=== PATIENT | male | born 1940 | race Caucasian/White ===

== ENCOUNTER 2016-08-04 12:33 | Emergency (ER) | payer OTHER ==
[~2016-08-04] VITALS: Ht 180.3 cm; Wt 80.4 kg
[~2016-08-04 12:33] MED LIST: APIX1TAB3 PO; ATOR-24 PO; FURO40TA3 PO; IPRA1AER2 INH; LISI-793 PO; METO100T44 PO; OMEP20CA9 PO; SYMIN INH
[2016-08-04 12:45] VITALS: BP 139/82; TEMP 36.6; Ht 180.3 cm; Wt 80.4 kg
[2016-08-04] MEDS ORDERED: DIPHTHERIA/TETANUS/PERTUSSIS 0.5 ML SYR/VIAL IM. ONE (13:30)
[2016-08-04 13:57] VITALS: PULSE 78; O2SAT 96
--- NOTE | 2016-08-06 09:09 | EMERGENCY ROOM VISIT NOTE ---
ED Visit Note First contact with patient: 12:50 CHIEF COMPLAINT: Bleeding HISTORY OF PRESENT ILLNESS: Mr. Rodriguez is an 76-year-old white male who ambulates into the ED accompanied by a male friend complaining of a bleeding from a skin tear. Patient reports approximately one hour ago he was fishing with a friend, slipped on a rock and had a skin tear to the lateral and posterior aspect of the left elbow. He reports he tried to control bleeding but was unsuccessful so come into the emergency department for further evaluation and care. He reports at the time of the fall he did not strike his head or have a loss of consciousness and since the fall he has had no signs of head injury. Additionally he reports although he sustained a skin tear he is not experiencing any pain in his elbow or throughout the left upper extremity. He denies any numbness or tingling throughout the extremity and he has no difficulty with range of motion in the shoulder, elbow, forearm or wrist. REVIEW OF SYSTEMS: As noted above in History of Present Illness. PAST MEDICAL HISTORY: Valvular heart disease, hypertension, bronchitis, emphysema. CURRENT MEDICATION: Medications Dose Route/Sig Max Daily Dose Days Date Category Lipitor (Atorvastatin Calcium) 40 Mg Tab 40 Mg PO HS 08/02/16 Reported Zestril (Lisinopril) 30 Mg Tab 30 Mg PO QAM 08/02/16 Reported Combivent Respimat (Ipratropium-Albuterol) 1 Aer Aer 1 Puffs INH QID PRN 08/07/15 Reported Eliquis (Apixaban) 5 Mg Tab 1 Tab PO BID 08/07/15 Reported Toprol-Xl (Metoprolol Succinate) 100 Mg Tabcr 100 Mg PO QAM 08/07/15 Reported Lasix (Furosemide) 40 Mg Tab 2 Tabs PO QAM 04/07/15 Reported Symbicort 160-4.5 Mcg/Act (Budesonide/Formoterol Fumarate) 60 Puffs/Inhaler Aero 2 Puffs INH BID 04/07/15 Reported Prilosec (Omeprazole) 20 Mg Cap 20 Mg PO QAM 03/03/14 Reported ALLERGIES TO MEDICATION: Patient denies. SOCIAL HISTORY: Patient is currently retired; he lives with his and feels safe in his home environment; he denies tobacco use, he admits to social alcohol use. TETANUS IMMUNIZATION STATUS: Patient reports greater than 10 years. PHYSICAL EXAM: Vital Signs: Date Time Temp Pulse Resp B/P Pulse Ox O2 Delivery O2 Flow Rate FiO2 08/04/16 13:57 78 18 96 Room Air 08/04/16 12:45 36.6 88 18 139/82 95 Room Air General: 76 year-old white male in no acute distress, nontoxic appearing, afebrile and hemodynamically stable. Neurological: Awake, alert and oriented to person, place and time. Answering questions appropriately and following commands. Skin: Warm, dry and pink. Left Upper Extremity: Over the lateral and posterior aspect of the elbow patient has 3 separate skin tears. In total the skin tears measure approximately 8 cm. When I removed the dressing from his wounds there was no active bleeding. LEFT UPPER EXTREMITY: No gross bony deformity. No tenderness throughout the shoulder or elbow except for mild tenderness over his skin tears. No tenderness throughout the forearm, wrist or hand. Full range of motion in all movements of the shoulder, elbow and forearm. Throughout the hand the skin was warm and pink and capillary refill is brisk. He was able to distinguish light sensations through all dermatomes. ED COURSE: Patient is assessed as noted above. Wound Repair: Complexity: Basic Verbal consent was obtained after the risks and benefits were explained. The skin was prepped with betadine and a sterile field set. The wound was explored for foreign bodies and none found. Copious irrigation was performed using sterile saline. With direct pressure the bleeding subsided. Debridement was not performed. The wound edges meticulously replaced and approximated with Steri-Strips. Hemostasis and excellent approximation was achieved. Sterile dressing applied. No complications and the patient tolerated the procedure well. Patient was educated about ivaight's findings and instructed on his treatment plan; he verbalizes understanding and agreement with this plan. CLINICAL IMPRESSION: Left elbow skin tear. Status post fall DISPOSITION: Patient discharged to home in stable condition accompanied by a male friend; prior to departure he was reassessed and subjectively reported he was still pain free. PLAN: Comfort measures, wound care and signs of infection were discussed with the patient. Patient was encouraged to follow-up with family physician or return emergency department for any signs of infection or any new/concerning symptoms.
== END 2016-08-04 13:58 | disposition home or self-care (01) ==
LOC: C.EDB 12:34 → C.EDD 13:58
DX: S51.012A Laceration without foreign body of left elbow, initial encounter (principal); W01.0XXA Fall on same level from slipping, tripping and stumbling without subsequent striking against object, initial encounter; Y92.89 Other specified places as the place of occurrence of the external cause; Y93.89 Activity, other specified; I51.9 Heart disease, unspecified; I10 Essential (primary) hypertension; J43.9 Emphysema, unspecified

== ENCOUNTER → 2016-08-08 | Day surgery (SDC) | payer OTHER ==
[2016-08-02 09:30] VITALS: Ht 180.3 cm; Wt 77.3 kg
[~2016-08-08] VITALS: Ht 180.3 cm; Wt 77.3 kg
[~2016-08-08] MED LIST changes: +LIDOCAINE HCL 2% 2 ML VIAL (20MG/ML) ONE; +ONDANSETRON INJ 2 MG/ML 2 ML VIAL ONE; +PROPOFOL IV EMULSION 10 MG/ML 20 ML VIAL IV ONE; +SODIUM CHLORIDE 0.9% 500ML 500 ML IV ONE
--- NOTE | 2016-08-08 13:27 | Endo History and Physical ---
History & Physical Date of Service: August 08, 2016. Chief Complaint: screening Referring Physician: Dr. Jax Zapata History of Present Illness 76 yo CM who presents for screening colonoscopy. Past Surgical History Hx Cardiac Surgery: Yes (GEOVANNA, CARDIOVERSION, MITRAL VALVE REPLACEMENT) Hx Internal Defibrillator: No Hx Pacemaker: No Hx Abdominal Surgery: No Hx of Implantable Prosthesis: No Hx Post-Op Nausea and Vomiting: No Hx Cancer Surgery: Yes (BCC REMOVAL) Hx Thoracic Surgery: No Hx Orthopedic: No Hx Urinary Tract Surgery: No Family History Polyp Social History Smoking Status: Former Smoker Hx Substance Use: No Hx Alcohol Use: Yes (2-3 DRINKS/DAY) Allergies Coded Allergies: No Known Allergies (Unverified , 08/08/16) Current Medications Reported Home Medications Medications Dose Route/Sig Max Daily Dose Days Date Category Lipitor (Atorvastatin Calcium) 40 Mg Tab 40 Mg PO HS 08/02/16 Reported Zestril (Lisinopril) 30 Mg Tab 30 Mg PO QAM 08/02/16 Reported Combivent Respimat (Ipratropium-Albuterol) 1 Aer Aer 1 Puffs INH QID PRN 08/07/15 Reported Eliquis (Apixaban) 5 Mg Tab 1 Tab PO BID 08/07/15 Reported Toprol-Xl (Metoprolol Succinate) 100 Mg Tabcr 100 Mg PO QAM 08/07/15 Reported Lasix (Furosemide) 40 Mg Tab 2 Tabs PO QAM 04/07/15 Reported Symbicort 160-4.5 Mcg/Act (Budesonide/Formoterol Fumarate) 60 Puffs/Inhaler Aero 2 Puffs INH BID 04/07/15 Reported Prilosec (Omeprazole) 20 Mg Cap 20 Mg PO QAM 03/03/14 Reported Vital Signs Weight (Kilograms): 77.27 Height (Feet): 5 Height (Inches): 11 Date Time Temp Pulse Resp B/P Pulse Ox O2 Delivery O2 Flow Rate FiO2 08/08/16 12:16 36.5 81 20 150/85 100 Room Air Physical Exam General Appearance: WD/WN, no apparent distress Respiratory/Chest: Auscultation: breath sounds normal Cardiovascular: Heart Auscultation: RRR Abdomen: Bowel Sounds: normal Inspection & Palpation: soft, non-distended, no tenderness, guarding & rebound Assessment and Plan Assessment: 76 yo CM who presents for screening colonoscopy. Plan: Proceed with colonoscopy.
--- NOTE | 2016-08-08 13:45 | Discharge Instructions ---
Endoscopy Patient Instructions Date / Procedure(s) Performed August 08, 2016. Colonoscopy Allergy Information Coded Allergies: No Known Allergies (Unverified , 08/08/16) Discharge Date / Findings August 08, 2016. Colon polyps Diverticulosis Internal hemorrhoids Medication Instructions Stopped Medication(s): Eliquis and Lasix stopped 08/07/16. OK to resume all medications today as prescribed Reported Home Medications Medications Dose Route/Sig Max Daily Dose Days Date Category Lipitor (Atorvastatin Calcium) 40 Mg Tab 40 Mg PO HS 08/02/16 Reported Zestril (Lisinopril) 30 Mg Tab 30 Mg PO QAM 08/02/16 Reported Combivent Respimat (Ipratropium-Albuterol) 1 Aer Aer 1 Puffs INH QID PRN 08/07/15 Reported Eliquis (Apixaban) 5 Mg Tab 1 Tab PO BID 08/07/15 Reported Toprol-Xl (Metoprolol Succinate) 100 Mg Tabcr 100 Mg PO QAM 08/07/15 Reported Lasix (Furosemide) 40 Mg Tab 2 Tabs PO QAM 04/07/15 Reported Symbicort 160-4.5 Mcg/Act (Budesonide/Formoterol Fumarate) 60 Puffs/Inhaler Aero 2 Puffs INH BID 04/07/15 Reported Prilosec (Omeprazole) 20 Mg Cap 20 Mg PO QAM 03/03/14 Reported Provider Instructions Activity Restrictions - No exercising or heavy lifting for 24 hours. - Do not drink alcohol the day of the procedure. - Do not drive a car or operate machinery until the day after the procedure. - Do not make any important decisions or sign important papers in 24 hours after the procedure. Following Day: - Return to full activity which may include returning to work/school. Diet Start your diet with liquids and light foods (jello, soup, juice, toast). Then eat your usual diet if not nauseated. Treatment For Common After Affects For mild abdominal pain, bloating, or excessive gas: - Rest - Eat lightly - Lie on right side Follow-Up Information Follow-up with Dr. Jax Zapata as scheduled Anesthesia Information What You Should Know You have had a procedure that required some medicine to reduce anxiety and discomfort. This treatment is called moderate sedation. After receiving the treatment, you may be sleepy, but you will be able to breathe on your own. The effects of the treatment may last for several hours. Follow these instructions along with Activity/Diet recommendations noted above: * Do NOT do anything where dizziness or clumsiness would be dangerous. * Rest quietly at home today, then you can be up and about tomorrow. * Have a responsible person stay with you the rest of today. * You may have had an I.V. today. If so, you may take the dressing off later today. Recommendations Call your doctor if: * Trouble breathing * Continuous vomiting for more than 24 hours * Temperature above 101 degrees * Severe abdominal pain or bloating * Pain not relieved by pain medicine ordered * There is increased drainage or redness from any incision * A large amount of rectal bleeding greater than 2-3 tablespoons. (If you had a polyp/s removed or have hemorrhoids, a small amount of blood - from the rectum is to be expected.) * You have any unanswered questions or concerns. IN THE EVENT OF A SERIOUS EMERGENCY, GO TO THE NEAREST EMERGENCY ROOM Your discharge instructions were prepared by provider Jean Carrasquillo. Patient Instructions Signature Page Gil Rodriguez Patient (or Guardian) Signature/Date: I have read and understand the instructions given to me by my caregivers. Caregiver/RN/Doctor Signature/Date: The above-named patient and/or guardian has received patient instructions on this date. + Original Patient Signature Page (only) stays with chart. Please make copy for patient.
--- NOTE | 2016-08-08 13:49 | GI REPORT ---
Procedure Date: 08/08/2016 1:23 PM Procedure: Colonoscopy Indications: Screening for colorectal malignant neoplasm Medicines: Monitored Anesthesia Care Complications: No immediate complications. Estimated Blood Loss: Estimated blood loss: none. Procedure: Pre-Anesthesia Assessment: - Prior to the procedure, a History and Physical was performed, and patient medications and allergies were reviewed. The patient's tolerance of previous anesthesia was also reviewed. The risks and benefits of the procedure and the sedation options and risks were discussed with the patient. All questions were answered, and informed consent was obtained. Prior Anticoagulants: The patient has taken Eliquis (apixaban), last dose was 3 days prior to procedure. ASA Grade Assessment: III - A patient with severe systemic disease. After reviewing the risks and benefits, the patient was deemed in satisfactory condition to undergo the procedure. After I obtained informed consent, the scope was passed under direct vision. Throughout the procedure, the patient's blood pressure, pulse, and oxygen saturations were monitored continuously. The scope was introduced through the anus and advanced to the terminal ileum. The colonoscopy was performed without difficulty. The patient tolerated the procedure well. The quality of the bowel preparation was good. The terminal ileum, ileocecal valve, appendiceal orifice, and rectum were photographed. Findings: Four sessile polyps were found in the sigmoid colon, in the transverse colon and in the ascending colon. The polyps were 5 to 8 mm in size. These polyps were removed with a hot snare. Resection and retrieval were complete. Multiple small-mouthed diverticula were found in the sigmoid colon. Non-bleeding internal hemorrhoids were found during retroflexion. The hemorrhoids were small. Impression: - Four 5 to 8 mm polyps in the sigmoid colon, in the transverse colon and in the ascending colon, removed with a hot snare. Resected and retrieved. - Diverticulosis in the sigmoid colon. - Non-bleeding internal hemorrhoids. Recommendation: - Resume previous diet. - Continue present medications. - Repeat colonoscopy for surveillance based on pathology results. - Return to primary care physician as previously scheduled. Jean Carrasquillo DO 08/08/2016 1:48:18 PM This report has been signed electronically. Note Initiated On: 08/08/2016 1:23 PM I attest to the content of the Intraoperative Record and orders documented therein, exceptions below
[2016-08-08 14:20] VITALS: BP 146/58; PULSE 70; O2SAT 97
--- NOTE | 2016-08-08 14:21 | Anesthesiology Progress Note ---
Anesthesia Post Op Note Date & Time August 08, 2016 at 14:20 Vital Signs Pain Intensity: 0 Vital Signs Past 12 Hours Date Time Temp Pulse Resp B/P Pulse Ox O2 Delivery O2 Flow Rate FiO2 08/08/16 14:05 72 18 126/78 99 Room Air 08/08/16 13:50 88 16 120/61 97 Room Air 08/08/16 12:16 36.5 81 20 150/85 100 Room Air Notes Mental Status: alert / awake / arousable, participated in evaluation Pt Amnestic to Procedure: Yes Nausea / Vomiting: adequately controlled Pain: adequately controlled Airway Patency, RR, SpO2: stable & adequate BP & HR: stable & adequate Hydration State: stable & adequate Anesthetic Complications: no major complications apparent
== END | disposition home or self-care (01) ==
LOC: C.GI 11:49
PROVIDERS: ATTEND Internal Medicine
DX: Z12.11 Encounter for screening for malignant neoplasm of colon (principal); D12.2 Benign neoplasm of ascending colon; D12.5 Benign neoplasm of sigmoid colon; D12.3 Benign neoplasm of transverse colon; K57.30 Diverticulosis of large intestine without perforation or abscess without bleeding; K64.8 Other hemorrhoids; Z83.71 Family history of colonic polyps; Z87.891 Personal history of nicotine dependence; Z95.2 Presence of prosthetic heart valve; Z79.82 Long term (current) use of aspirin; Z79.899 Other long term (current) drug therapy

== ENCOUNTER → 2016-08-12 | Outpatient (CLI) | payer OTHER ==
[~2016-08-12] MED LIST changes: -LIDOCAINE HCL 2% 2 ML VIAL (20MG/ML) ONE; -ONDANSETRON INJ 2 MG/ML 2 ML VIAL ONE; -PROPOFOL IV EMULSION 10 MG/ML 20 ML VIAL IV ONE; -SODIUM CHLORIDE 0.9% 500ML 500 ML IV ONE
[2016-08-12 10:55] LABS: BASO % 0.2 %; BASO ABS # 0.02 K/uL (0-0.2); COMPLETE YES; HEMATOCRIT 40.7 % (42-52); IG% 0.1 %; LYMPH % 13.5 %; MEAN CELL VOLUME 96.7 fL (80-100); MEAN CORPUSCULAR HEMOGLOBIN 31.8 pg (25-34); MEAN CORPUSCULAR HGB CONC 32.9 g/dl (32-36); MEAN PLATELET VOLUME 11.8 fL (7.4-10.4); MONO % 10.3 %; NEUT % 73.9 %; PLATELET COUNT 192 K/uL (130-400); RED BLOOD COUNT 4.21 M/uL (4.7-6.1); WHITE BLOOD COUNT 8.15 K/uL (4.8-10.8)
[2016-08-12 11:19] LABS: ALT/SGPT 23 U/L (12-78); BLOOD UREA NITROGEN 15 mg/dl (7-18); BUN/CREATININE RATIO 15.2 (10-20); CARBON DIOXIDE 33 mmol/L (21-32); CHLORIDE 102 mmol/L (98-107); CHOLESTEROL 94 mg/dl (0-200); GLUCOSE 113 mg/dl (70-99); POTASSIUM 3.6 mmol/L (3.5-5.1); SODIUM 140 mmol/L (136-145)
[2016-08-12 11:24] LABS: ALB/GLOB RATIO 1.2 (0.9-2); ALKALINE PHOSPHATASE 122 U/L (45-117); AST/SGOT 20 U/L (15-37); CHOLESTEROL/HDL RATIO 1.7; HDL CHOLESTEROL 54 mg/dl; LDL CHOLESTEROL CALCULATED 26 mg/dl; TRIGLYCERIDES 70 mg/dl (0-150); VERY LOW DENSITY LIPOPROT CALC 14 mg/dl
[2016-08-12 11:32] LABS: CALCIUM 9.2 mg/dl (8.5-10.1)
[2016-08-15 12:14] LABS: AFP TUMOR MARKER SERUM 1.6 NG/ML (<6.1)
== END | disposition home or self-care (01) ==
LOC: C.LABBC 08:08
PROVIDERS: ATTEND Family Medicine
DX: I25.10 Atherosclerotic heart disease of native coronary artery without angina pectoris (principal); K74.60 Unspecified cirrhosis of liver; N40.0 Benign prostatic hyperplasia without lower urinary tract symptoms

== ENCOUNTER → 2016-11-14 | Outpatient (CLI) | payer OTHER ==
[~2016-11-14] MED LIST changes: -METO100T44 PO; +METO1TAB69 PO
--- NOTE | 2016-11-14 09:53 | DIAGNOSTIC IMAGING REPORT ---
ABDOMINAL ULTRASOUND, RIGHT UPPER QUADRANT HISTORY: Cirrhosis. COMPARISON: None. FINDINGS: There is coarsening of hepatic echotexture. This suggests cirrhosis. No hepatic lesions are identified by sonography. There is no biliary ductal dilatation. The common bile duct measures 6 mm in caliber. There is a 6 mm nonmobile structure within the gallbladder without associated shadowing. No gallbladder wall thickening is noted. There is no right hydronephrosis. The pancreatic body is normal. The head and tail are largely obscured by overlying bowel gas. IMPRESSION: 1. Cirrhosis. No hepatic lesions identified by sonography. 2. 6 mm nonmobile structure within the gallbladder which could reflect a polyp, nonshadowing stone or sludge ball. No gallbladder wall thickening. No evidence for acute cholecystitis. 3. No biliary ductal dilatation. Electronically signed by: Osbaldo Milner M.D. 11/14/2016 9:52 AM Dictated Date/Time: 11/14/2016 9:50 AM
== END | disposition home or self-care (01) ==
LOC: C.ULTRBC 08:29
PROVIDERS: ATTEND Internal Medicine
DX: K74.60 Unspecified cirrhosis of liver (principal)

== ENCOUNTER → 2016-11-22 | Outpatient (CLI) | payer OTHER ==
[2016-11-22 15:38] LABS: PROTHROMBIN TIME (PATIENT) 10.9 SECONDS (9.0-12.0)
[2016-11-22 15:58] LABS: ALT/SGPT 24 U/L (12-78); AST/SGOT 19 U/L (15-37); BLOOD UREA NITROGEN 14 mg/dl (7-18); BUN/CREATININE RATIO 12.5 (10-20); CALCIUM 9.2 mg/dl (8.5-10.1); CARBON DIOXIDE 28 mmol/L (21-32); CHLORIDE 103 mmol/L (98-107); GLUCOSE 84 mg/dl (70-99); POTASSIUM 3.7 mmol/L (3.5-5.1); SODIUM 138 mmol/L (136-145)
[2016-11-22 16:01] LABS: ALB/GLOB RATIO 1.1 (0.9-2); ALKALINE PHOSPHATASE 123 U/L (45-117); TOTAL IRON BINDING CAPACITY 355 mcg/dl (250-450)
[2016-11-22 16:09] LABS: HEPATITIS B AB NEG
== END | disposition home or self-care (01) ==
LOC: C.LAB 10:36
PROVIDERS: ATTEND Physician Assistant
DX: K74.60 Unspecified cirrhosis of liver (principal)

== ENCOUNTER → 2017-08-18 | Outpatient (CLI) | payer OTHER ==
[~2017-08-18] MED LIST changes: +METO100T44 PO; -METO1TAB69 PO
[2017-08-18 10:38] LABS: BASO % 0.1 %; BASO ABS # 0.02 K/uL (0-0.2); EOS % 0.6 %; EOS ABS # 0.08 K/uL (0-0.5); HEMATOCRIT 41.5 % (42-52); HEMOGLOBIN 14.2 g/dL (14.0-18.0); IG# 0.04 K/uL (0.00-0.02); LYMPH % 4.3 %; LYMPH ABS # 0.59 K/uL (1.2-3.4); MEAN CELL VOLUME 95.2 fL (80-100); MEAN CORPUSCULAR HEMOGLOBIN 32.6 pg (25-34); MEAN CORPUSCULAR HGB CONC 34.2 g/dl (32-36); MEAN PLATELET VOLUME 11.6 fL (7.4-10.4); MONO % 7.1 %; MONO ABS # 0.98 K/uL (0.11-0.59); NEUT % 87.6 %; NEUT ABS # 12.01 K/uL (1.4-6.5); PLATELET COUNT 176 K/uL (130-400); RED CELL DISTRIBUTION WIDTH CV 13.7 % (11.5-14.5); RED CELL DISTRIBUTION WIDTH SD 47.2 fL (36.4-46.3); WHITE BLOOD COUNT 13.72 K/uL (4.8-10.8)
[2017-08-18 10:48] LABS: ALBUMIN 3.5 gm/dl (3.4-5.0); ALT/SGPT 23 U/L (12-78); AST/SGOT 25 U/L (15-37); BLOOD UREA NITROGEN 29 mg/dl (7-18); CALCIUM 8.9 mg/dl (8.5-10.1); CARBON DIOXIDE 29 mmol/L (21-32); CHOLESTEROL 86 mg/dl (0-200); CREATININE 1.52 mg/dl (0.60-1.40); GLUCOSE 149 mg/dl (70-99); POTASSIUM 3.4 mmol/L (3.5-5.1); SODIUM 136 mmol/L (136-145)
[2017-08-18 10:50] LABS: ALKALINE PHOSPHATASE 89 U/L (45-117); LDL CHOLESTEROL CALCULATED 17 mg/dl; TOTAL PROTEIN 7.2 gm/dl (6.4-8.2)
== END | disposition home or self-care (01) ==
LOC: C.LABBC 08:35
PROVIDERS: ATTEND Family Medicine Adult Medicine
DX: I10 Essential (primary) hypertension (principal); I48.91 Unspecified atrial fibrillation; I25.10 Atherosclerotic heart disease of native coronary artery without angina pectoris; K74.60 Unspecified cirrhosis of liver

== ENCOUNTER → 2017-08-25 | Outpatient (CLI) | payer OTHER ==
--- NOTE | 2017-08-25 09:26 | DIAGNOSTIC IMAGING REPORT ---
(LIVER) ABDOMEN LIMITED HISTORY: 77 years-old Male K74.60 Unspecified cirrhosis of liver COMPARISON: Ultrasound 11/14/2016 TECHNIQUE: Multiple real-time sonographic images of the abdominal right upper quadrant were obtained assessing grayscale appearance and color flow FINDINGS: Pancreas is partially obscured by bowel gas. Imaged portions are unremarkable. Coarsened hepatic parenchyma is again noted with minimal marginal nodularity. No focal hepatic mass lesions or intrahepatic biliary ductal dilation. Previously noted 6 mm structure within the gallbladder is no longer identified. No shadowing cholelithiasis, wall thickening or pericholecystic fluid. Common bile duct is normal, 4 mm. Imaged right kidney is unremarkable without hydronephrosis. IMPRESSION: 1. Coarsened appearance of the hepatic parenchyma with suggestion of mild marginal nodularity suggests cirrhotic liver disease. No focal hepatic mass lesions identified. 2. Unremarkable sonographic appearance of the gallbladder. 3. No biliary ductal dilation. The above report was generated using voice recognition software. It may contain grammatical, syntax or spelling errors. Electronically signed by: Grzegorz Garrett M.D. 08/25/2017 9:25 AM Dictated Date/Time: 08/25/2017 9:22 AM
== END | disposition home or self-care (01) ==
LOC: C.ULTRBC 08:41
PROVIDERS: ATTEND Family Medicine Adult Medicine
DX: K74.60 Unspecified cirrhosis of liver (principal)

== ENCOUNTER 2019-11-04 11:13 | Inpatient (IN) ==
[2019-11-04] MEDS ORDERED: ACETAMINOPHEN 500 MG TAB PO STA (12:31)
--- NOTE | 2019-11-04 12:41 | Emergency Department Note ---
Impression & Plan Fever, Abscess, perianal ED Provider Note Provider: Niall Almendarez MD DATE OF SERVICE: 11/04/2019 CHIEF COMPLAINT: Shortness of breath, weakness HISTORY OF PRESENT ILLNESS: Patient is a 79-year-old gentleman with a history of atrial fibrillation on Eliquis, cardiomyopathy, bioprosthetic mitral valve replacement, COPD, diverticulosis, and hypertension presenting today referred from the dermatology clinic where he is scheduled to undergo Mohs surgery. Became short of breath there and also had a little bit of shivering. Did take a large dose of Keflex due to history of valve issues 45 minutes prior to this. Upon arrival here the patient is febrile but he states that he actually feels better. States he did get some breathing treatments that helped. Does have some word finding issues he states but no other numbness or tingling or weakness reported. No trauma is reported. Patient denies any chest pain at this point or shortness of breath. Some shortness of breath earlier. Denies any chest pain today. Denies any abdominal issues today. Denies any urinary symptoms. Denies any new skin rashes or recent tick bites. REVIEW OF SYSTEMS: A total of 10 review of systems was obtained and negative except as stated above in the HPI. PAST MEDICAL HISTORY: As noted above MEDICATIONS: Reviewed home medications and did take his Eliquis this morning SOCIAL HISTORY: Lives at home with , distant former smoker PHYSICAL EXAM: GENERAL: alert and oriented in no acute distress on stretcher Head: normocephalic and atraumatic EYES: No injection, discharge or icterus. PERRL NECK: Trachea midline. Supple. ENT: Mucous membranes pink and moist. LUNGS: Airway patent. No retractions. Breath sounds clear HEART: Irregular rate and rhythm. No chest wall tenderness ABDOMEN: Soft and non-tender, without guarding or rebound. SKIN: Acyanotic, warm, dry. There is a slight area of erythema and tenderness in the perianal area prickly on the right buttock component. No crepitus. EXTREMITIES: Without swelling, tenderness or deformity NEUROLOGICAL: No focal deficits. No facial droop or slurred speech but occasionally has a bit of word finding issues. Normal strength and tone in the extremities and gross sensations intact on the face in the extremities. EK bpm atrial fibrillation with some lateral inferior ST depression. No acute ST elevation. Slight interventricular conduction delay compared to previous film from April 19, 2011 now in atrial fibrillation with more significant ST depressions. CONTINUOUS CARDIAC MONITORING: was ordered and showed a heart rate of 93 bpm in atrial fibrillation Patient's hypertension was referred to the hospitalist HOSPITAL COURSE: 1222 Patient was first seen and H&P performed. 1413 Patient reassessed and updated. Patient was relates some perianal tenderness. Exam of this area does show some right gluteal tenderness around the anal region. 1518 discussed and updated the patient with findings and plan. 1523 discussed with Cinthya Sutton of the surgery team for consultation. [address] Zabala of the medicine team. Patient's laboratory studies and imaging reviewed. Differential includes Infection, dehydration, metabolic abnormality, hypo/hyperglycemia, electrolyte disturbance, anemia, hypoxia, cardiac sources, intracerebral event, toxicologic, neurologic, as well as other pathologies. IMPRESSION/MEDICAL DECISION MAKING: Patient presents after shortness of breath developing acutely today. This is improved upon arrival. Febrile upon arrival. In A. fib now and on Eliquis. Some slight word finding of his anticoagulation use a CT of the head is complete without acute finding. A lower suspicion for acute CVA and believe this is likely more infectious related. I doubt meningitis. Labs show leukocytosis. Troponin detectable not abnormal. No evidence of a significant electrolyte abnormalities. Procalcitonin indeterminant range. I have a lower suspicion for acute coronavirus infection. There is some slight blunting the right costophrenic and there is otherwise nothing noted on the chest x-ray. He did not sound wheezy at this point lower suspicion for COPD exacerbation. Antico agulate I doubt PE. Patient feeling more improved here and seems more clear in discussion with him regarding his speech and situation. Later on reassessment patient still waiting to provide a urine complains that occasionally gets some fistulas around his anus. Did state last several days he is noted some erythema and some slight tenderness here. Given this a CT of the abdomen pelvis was completed. Area of abscess is noted here. Given the fact he is on a blood thinner hesitant also with his history of fistula to immediately in size. Given his illness complaints with CT findings, given a dose of Zosyn and feel that further inpatient monitoring would be reasonable. Did alert the surgery team for consultation regarding the abscess and will consult with the medicine team for admission at this time. Surgery came and performed a brief I&D at bedside. DIAGNOSIS: Fever, perianal abscess DISPOSITION: Hospitalist will evaluate Patient was agreeable with this plan. Past Med/Surg History Medical History Atrial fibrillation Cancer MOHS ON NOSE (SKIN CANCER) Chronic obstructive pulmonary disease GERD (gastroesophageal reflux disease) History of Mohs micrographic surgery for skin cancer Hyperlipidemia Hypertension Surgical History Fistula REPAIRED History of cardiac cath History of cardiac radiofrequency ablation 5-6 YEARS AGO ([facility] BY DR. YIN) History of colonoscopy History of heart valve replacement MITRAL VALVE REPLACED 3 YEARS AGO ([place]) History of tonsillectomy History of tooth extraction Status post anal fissurectomy Status post Mohs surgery left cheek and left arm (squamous cell) Family History Father Family hx colonic polyps Mother Heart disease Other Hypertension Social History Smoking Status: Current every day smoker Cigarettes Per Day: 40; Second Hand Exposure: No; Hx Alcohol Use: Yes Alcohol type: beer Hx Substance Use: No Preferred Language: Setswana Communication Ability: Effective Visual Impairment: Limited Hearing Ability: Normal Case Management Rn Required: No Beliefs That Will Affect Care: None marital status: Current Living Situation: Spouse current occupational status: retired Feels Safe at Home: Yes Childhood Exposure to Second-Hand Smoke: Yes caffeine: Yes Dental Care, Regularly: Yes Physical Activity Frequency: 1-2 Times per Week Physical Activity Frequency Comment: regular Seatbelt Use: always Sunscreen Use: Yes Allergies Allergies Allergy/AdvReac Type Severity Reaction Status Date / Time No Known Allergies Allergy Verified 11/04/19 12:23 Home Meds Home Medications Medication Instructions Recorded Confirmed amoxicillin 500 mg capsule 500 mg PO UD PRN 02/26/19 11/04/19 montelukast 10 mg PO DAILY 11/04/19 11/04/19 omeprazole 20 mg PO DAILY 11/04/19 11/04/19 Previous Rx's Medication Instructions Recorded metoprolol succinate 100 mg 100 mg PO QAM #90 tab 01/11/19 tablet,extended release 24 hr nebulizer accessories #1 ea 03/26/19 nebulizers #1 ea 03/28/19 lisinopril 30 mg tablet 30 mg PO QAM #90 tab 06/13/19 apixaban 5 mg tablet 5 mg PO BID #180 tab 08/19/19 budesonide-formoterol HFA 160 2 puff INHALATION BID #10.2 gm 08/28/19 mcg-4.5 mcg/actuation aerosol inhaler ipratropium 0.5 mg-albuterol 3 mg 3 ml INH QID PRN #360 ml 08/28/19 (2.5 mg base)/3 mL nebulization soln ipratropium 20 mcg-albuterol 100 1 puff INHALATION TID PRN #4 gm 08/28/19 mcg/actuation mist for inhalation tiotropium bromide 2.5 2 puffs INH DAILY #4 gm 08/28/19 mcg/actuation mist for inhalation furosemide 40 mg tablet 40 mg PO DAILY #100 tab 10/03/19 atorvastatin 20 mg tablet 20 mg PO HS #90 tab 10/28/19 Results & Data (ED) Vital Signs Vital Signs - 24 hr 11/04/19 11:17 11/04/19 11:25 11/04/19 11:50 Temperature 38.4 C H Temperature Source Oral Pulse Rate 103 H 98 H 96 H Pulse Rate [Apical] Pulse Rate from SpO2 Sensor 96 H Pulse Rhythm Regular Pulse Strength Normal Respiratory Rate 31 H 18 35 H Respiratory Effort / Characteristics Non-Labored Spontaneous Respiratory Depth Normal Respiratory Pattern Regular Blood Pressure 130/85 130/85 Blood Pressure [Left Arm] Blood Pressure Mean 106 100 Blood Pressure Mean [Left Arm] Blood Pressure Position Lying Pulse Oximetry 94 93 Oxygen Delivery Method Room Air Sepsis Recent Fever Within 48 Hours No Sepsis New/Unexplained Change in Mental Status No Sepsis Action Taken by Nursing No Action Required 11/04/19 12:20 11/04/19 12:52 11/04/19 13:16 Temperature Temperature Source Pulse Rate 92 H 93 H Pulse Rate [Apical] Pulse Rate from SpO2 Sensor 93 H 97 H Pulse Rhythm Pulse Strength Respiratory Rate 28 H 25 H Respiratory Effort / Characteristics Respiratory Depth Respiratory Pattern Blood Pressure 142/65 H Blood Pressure [Left Arm] Blood Pressure Mean 79 Blood Pressure Mean [Left Arm] Blood Pressure Position Pulse Oximetry 92 93 95 Oxygen Delivery Method Room Air Sepsis Recent Fever Within 48 Hours Sepsis New/Unexplained Change in Mental Status Sepsis Action Taken by Nursing 11/04/19 15:26 11/04/19 17:26 Temperature Temperature Source Pulse Rate Pulse Rate [Apical] 85 71 Pulse Rate from SpO2 Sensor Pulse Rhythm Pulse Strength Respiratory Rate 18 18 Respiratory Effort / Characteristics Respiratory Depth Respiratory Pattern Blood Pressure Blood Pressure [Left Arm] 128/67 118/74 Blood Pressure Mean Blood Pressure Mean [Left Arm] 87 88 Blood Pressure Position Pulse Oximetry 94 95 Oxygen Delivery Method Room Air Room Air Sepsis Recent Fever Within 48 Hours Sepsis New/Unexplained Change in Mental Status Sepsis Action Taken by Nursing Laboratory Data Result diagrams: 11/04/19 12:50 11/04/19 12:50 Lab Results 11/04/19 11/04/19 11/04/19 Range/Units 12:50 12:50 12:50 WBC 13.69 H (4.8-10.8) K/uL RBC 4.26 L (4.7-6.1) M/uL Hgb 13.2 L (14.0-18.0) g/dL Hct 39.2 L (42-52) % MCV 92.0 (80-100) fL MCH 31.0 (25-34) pg MCHC 33.7 (32-36) g/dL RDW Std Deviation 46.1 (36.4-46.3) fL RDW Coeff of [place] 13.8 (11.5-14.5) % Plt Count 196 (130-400) K/uL MPV 10.7 H (7.4-10.4) fL Immature Gran % (Auto) 0.3 % Neut % (Auto) 84.6 % Lymph % (Auto) 5.0 % [place] % (Auto) 9.6 % Eos % (Auto) 0.4 % Baso % (Auto) 0.1 % Neut # (Auto) 11.58 H (1.4-6.5) K/uL Lymph # (Auto) 0.69 L (1.2-3.4) K/uL [place] # (Auto) 1.31 H (0.11-0.59) K/uL Eos # (Auto) 0.05 (0-0.5) K/uL Baso # (Auto) 0.02 (0-0.2) K/uL Immature Gran # (Auto) 0.04 H (0.00-0.02) K/uL PT 12.3 H (9.0-12.0) Seconds INR 1.2 H (0.9-1.1) APTT 33.0 H (21.0-31.0) Seconds PTT Ratio 1.2 Sodium 136 (136-145) mmol/L Potassium 3.9 (3.5-5.1) mmol/L Chloride 101 (98-107) mmol/L Carbon Dioxide 27 (21-32) mmol/L Anion Gap 8.0 (3-11) BUN 14 (7-18) mg/dl Creatinine 1.06 (0.6-1.4) mg/dl Est Cr Clr Drug Dosing 64.1 ml/min Est GFR ( Amer) 78.1 Est GFR (Non-Af Amer) 67.4 BUN/Creatinine Ratio 13.2 (10-20) Glucose 111 H (70-99) mg/dl Lactate (0.4-2.0) mmol/L Calcium 8.7 (8.5-10.1) mg/dl Magnesium 1.6 L (1.8-2.4) mg/dl Total Bilirubin 1.1 H (0.2-1) mg/dl AST 15 (15-37) U/L ALT 17 (12-78) U/L Alkaline Phosphatase 117 (45-117) U/L Troponin I 0.025 (0-0.045) ng/ml Total Protein 6.9 (6.4-8.2) gm/dl Albumin 3.3 L (3.4-5.0) gm/dl Globulin 3.6 (2.5-4.0) gm/dl Albumin/Globulin Ratio 0.9 (0.9-2) Procalcitonin (0-0.5) ng/ml 11/04/19 11/04/19 Range/Units 12:50 12:50 WBC (4.8-10.8) K/uL RBC (4.7-6.1) M/uL Hgb (14.0-18.0) g/dL Hct (42-52) % MCV (80-100) fL MCH (25-34) pg MCHC (32-36) g/dL RDW Std Deviation (36.4-46.3) fL RDW Coeff of [place] (11.5-14.5) % Plt Count (130-400) K/uL MPV (7.4-10.4) fL Immature Gran % (Auto) % Neut % (Auto) % Lymph % (Auto) % [place] % (Auto) % Eos % (Auto) % Baso % (Auto) % Neut # (Auto) (1.4-6.5) K/uL Lymph # (Auto) (1.2-3.4) K/uL [place] # (Auto) (0.11-0.59) K/uL Eos # (Auto) (0-0.5) K/uL Baso # (Auto) (0-0.2) K/uL Immature Gran # (Auto) (0.00-0.02) K/uL PT (9.0-12.0) Seconds INR (0.9-1.1) APTT (21.0-31.0) Seconds PTT Ratio Sodium (136-145) mmol/L Potassium (3.5-5.1) mmol/L Chloride (98-107) mmol/L Carbon Dioxide (21-32) mmol/L Anion Gap (3-11) BUN (7-18) mg/dl Creatinine (0.6-1.4) mg/dl Est Cr Clr Drug Dosing ml/min Est GFR ( Amer) Est GFR (Non-Af Amer) BUN/Creatinine Ratio (10-20) Glucose (70-99) mg/dl Lactate 1.9 (0.4-2.0) mmol/L Calcium (8.5-10.1) mg/dl Magnesium (1.8-2.4) mg/dl Total Bilirubin (0.2-1) mg/dl AST (15-37) U/L ALT (12-78) U/L Alkaline Phosphatase (45-117) U/L Troponin I (0-0.045) ng/ml Total Protein (6.4-8.2) gm/dl Albumin (3.4-5.0) gm/dl Globulin (2.5-4.0) gm/dl Albumin/Globulin Ratio (0.9-2) Procalcitonin 0.13 (0-0.5) ng/ml Administered Medications Ioversol (Optiray 320 100ml) 94 ml IV ONCE PRN PRN Reason: Interaction Checking Stop: 11/08/19 14:43 Last Admin: 11/04/19 14:45 Dose: 94 ml Documented by: [id number] Discontinued Medications Acetaminophen (Tylenol) 1,000 mg PO NOW STA Stop: 11/04/19 12:32 Last Admin: 11/04/19 12:43 Dose: 1,000 mg Documented by: [id number] Piperacillin Sod/Tazobactam Sod (Zosyn) 4.5 gm in 120 mls @ 240 mls/hr IV NOW ONE Stop: 11/04/19 14:59 Last Infusion: 11/04/19 15:36 Dose: 0 mls/hr Documented by: [id number] Admin: 11/04/19 15:05 Dose: 240 mls/hr Documented by: [id number] Magnesium Sulfate/Dextrose (Magnesium Sulfate / D5w) 1 gm in 100 mls @ 100 mls/hr IV NOW STA Stop: 11/04/19 16:32 Last Infusion: 11/04/19 16:42 Dose: 0 mls/hr Documented by: [id number] Admin: 11/04/19 15:42 Dose: 100 mls/hr Documented by: [id number] Lidocaine HCl (Xylocaine 1% (Local)) Confirm Administered Dose 20 ml .ROUTE .STK-MED ONE Stop: 11/04/19 15:45 Last Admin: 11/04/19 15:48 Dose: 20 ml Documented by: [id number] Discharge Plan Visit Data Chief Complaint: Respiratory Problems ED Provider: Niall Almendarez Discharge Problem: Fever, Abscess, perianal Discharge Instructions Interventions: ED Discharge Assessment Last Done: 11/04/19 19:05 Discharge Problem: Fever Qualifiers: Fever type: unspecified Qualified Code(s): R50.9 - Fever, unspecified
--- NOTE | 2019-11-04 13:01 | XRay Report ---
XR chest 1V portable CLINICAL HISTORY: Dyspnea dyspnea COMPARISON STUDY: 03/20/2019 FINDINGS: Mild stable cardiomegaly. Prior valve replacement. Lungs are clear. Diaphragms are smooth. Slight blunting right lateral costophrenic angle. IMPRESSION: Slight blunting right lateral costophrenic angle. Otherwise negative study. ACT 112: Negative or not required by law. The above report was generated using voice recognition software. It may contain grammatical, syntax or spelling errors. Electronically signed by: Ramon Paz M.D. 11/04/2019 1:00 PM
[2019-11-04 13:03] LABS: Basophils # (auto) 0.02 K/uL (0-0.2); Basophils % (auto) 0.1 %; Eosinophils # (auto) 0.05 K/uL (0-0.5); Eosinophils % (auto) 0.4 %; Hematocrit (blood only) 39.2 % (42-52); Hemoglobin 13.2 g/dL (14.0-18.0); Immature Granulocytes # (auto) 0.04 K/uL (0.00-0.02); Immature Granulocytes % (auto) 0.3 %; Lymphocytes # (auto) 0.69 K/uL (1.2-3.4); Mean Corpuscular Hgb Conc 33.7 g/dL (32-36); Mean Platelet Volume 10.7 fL (7.4-10.4); Monocytes # (auto) 1.31 K/uL (0.11-0.59); Monocytes % (auto) 9.6 %; Neutrophils # (auto) 11.58 K/uL (1.4-6.5); Neutrophils % (auto) 84.6 %; Platelet Count 196 K/uL (130-400); RDW Coefficient of Variation 13.8 % (11.5-14.5); RDW Standard Deviation 46.1 fL (36.4-46.3); Red Blood Count 4.26 M/uL (4.7-6.1); White Blood Count 13.69 K/uL (4.8-10.8)
[2019-11-04 13:14] LABS: INR 1.2 (0.9-1.1); Partial Thromboplastin Ratio 1.2; Prothrombin Time 12.3 Seconds (9.0-12.0)
[2019-11-04 13:30] LABS: Albumin Level 3.3 gm/dl (3.4-5.0); BUN Creatinine Ratio 13.2 (10-20); Calcium 8.7 mg/dl (8.5-10.1); Creatinine Clr Calc Pharmacy 64.1 ml/min; Est GFR (African American) 78.1; Est GFR (Non-African American) 67.4; Magnesium 1.6 mg/dl (1.8-2.4); Potassium 3.9 mmol/L (3.5-5.1)
--- NOTE | 2019-11-04 13:34 | CT Scan Report ---
CT head/brain wo con CLINICAL HISTORY: Weakness. Difficulty finding words. Possible stroke. Patient on blood thinners. COMPARISON STUDY: No previous studies for comparison. TECHNIQUE: Axial CT of the brain is performed from the vertex to the skull base. IV contrast was not administered for this examination. A dose lowering technique was utilized adhering to the principles of ALARA. CT DOSE: 614.27 mGy.cm FINDINGS: No intra or extra-axial mass lesions are visualized. There is no CT evidence of acute cortical infarc tion. There is no evidence of midline shift. There is no acute hemorrhage. No calvarial fractures ar e visualized. There are minor white matter hypodensities likely on a small vessel basis. There is no evidence of pathologic ventricular dilatation. There is no evidence of acute sinusitis IMPRESSION: No acute intracranial findings ACT 112: Negative or not required by law. Electronically signed by: Sumit Chiu M.D. 11/04/2019 1:33 PM
[2019-11-04 13:35] LABS: Albumin Globulin Ratio 0.9 (0.9-2); Bilirubin,Total 1.1 mg/dl (0.2-1); Globulin 3.6 gm/dl (2.5-4.0); Total Protein 6.9 gm/dl (6.4-8.2); Troponin I 0.025 ng/ml (0-0.045)
[2019-11-04] MEDS ORDERED: PIPERACILL/TAZOBAC CONSULT ACTIVE PRN ×2 (14:30→19:24)
[2019-11-04] MEDS ORDERED: PIPERACILLIN/TAZOBACTAM 4.5 GM/120 ML BAG IV ONE (14:30)
[2019-11-04] MEDS ORDERED: IOVERSOL 100ml IV PRN (14:44)
--- NOTE | 2019-11-04 15:12 | CT Scan Report ---
CT abd pelvis IV con only CLINICAL HISTORY: Fever. Possible rectal fistula. COMPARISON STUDY: PET CT scan dated 10/18/2017 TECHNIQUE: The patient was scanned in a dynamic helical fashion during intravenous administration of 94 cc of Optiray 320 A dose lowering technique was utilized adhering to the principles of ALARA. CT DOSE: 589.17 mGy.cm FINDINGS: Lower chest: There is pulmonary emphysema. There are tree-in-bud opacities associated groundglass att enuation within the right lower lobe, likely postinflammatory. Liver: The serosal surface is slightly nodular. There is a to small to characterize 4 mm hypodensity within the left lobe anteriorly, likely representing a cyst. The portal vein and hepatic veins appear patent. Gallbladder: Cholelithiasis Spleen: Top normal in size. Pancreas: Unremarkable. Adrenal glands: Unremarkable. Kidneys: There is a 13 mm left renal cyst. There are renal vascular calcifications. There is no hydro nephrosis. No solid renal masses are visualized Bowel: There are no transition zones indicate bowel obstruction. The appendix appears normal. There i s no acute diverticulitis. Peritoneum: There is no intraperitoneal free air or abdominal ascites. Vasculature: The abdominal aorta is normal in course and caliber. Adenopathy: There are borderline enlarged left iliac chain and left inguinal lymph nodes. Pelvic viscera: The prostate is enlarged. There is borderline bladder wall thickening. There is mild bladder distention. Skeletal structures: There is a 26 mm right gluteal fold fluid collection containing air. This is con sistent with an abscess. There is no definite perianal fistula. It should be noted that MRI is more s ensitive for the detection of a perianal fistula. IMPRESSION: 1. No evidence of bowel obstruction. No evidence of free air 2. 26 mm right gluteal fold fluid collection consistent with abscess. There is no definite perianal f istula. It should be noted that MRI in this regard. 3. Borderline enlarged left iliac chain and left inguinal lymph nodes. ACT 112: Negative or not required by law. Electronically signed by: Sumit Chiu M.D. 11/04/2019 3:11 PM
[2019-11-04] MEDS ORDERED: MAGNESIUM SULFATE / D5W 1 GM/100 ML BAG IV STA (15:33)
[2019-11-04] MEDS ORDERED: LIDOCAINE HCL 1% 20 ML VIAL ONE (15:44)
--- NOTE | 2019-11-04 16:06 | Surgery Consultation ---
Date of Consultation November 04, 2019 Assessment & Plan (1) Perianal abscess: This is a 79y M with a PMH of afib on eliquis, COPD, BPH, HTN, Pre-DM, and h/o mitral valve replacement who presents to the [facility] ED on 11/03 from his Dermatology appointment with shakes and chills. In the ED patient was noted to have an elevated temperature of 38.4, WBC of 13.6, and CT a/p that revealed a 26mm R gluteal fold fluid collection consistent with an abscess. 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 After examination decision was made to perform an I&D of the abscess at the bedside. After I&D we will recommend admission overnight by hospitalists team given fever for 1-2 days of IV abx and due to history of other medical issues. Incision will be packed with nu-gauze. Will ask patient to perform sitz baths as outpatient. Pt seen and examined with Dr. Sommer. Dr. Sommer-he did have areas of fluctuance in the right anterior perianal area-did perform I&D using local anesthesia 1 of these areas was probably from recurrent fistula formation and a granuloma the other was a perirectal abscess 1/4 inch gauze packing was placed and the patient was rechecked and found to have normal drainage As above and we will continue to follow History of Present Illness History of Present Illness This is a 79y M with a PMH of afib on eliquis, COPD, BPH, HTN, pre-DM, and h/o mitral valve replacement who presents to the [facility] ED on 11/03 with shakes and chills. Of note the patient was scheduled for Moh's surgery today with his Building [employer]. He reports taking 2grams of an antibiotic pre-procedurally when he started getting the shakes. He says he "lost his memory for a minute". After observation and lab draws he was sent to the ED for further evaluation. In the ED patient underwent a head CT that was unremarkable in addition to a CT a/p that revealed a 26mm right gluteal fold fluid collection consistent with an abscess. 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 2 of which required I&D. Patient reports that he has felt soreness from his bottom over the past 3-4 days. He has not noticed any drainage, but did wear some padding in his undergarments today. Otherwise patient denies any further symptoms, no change in bowel habits, no blood in stool, no n/v, and no chest pain or shortness of breath. Allergies Allergy/AdvReac Type Severity Reaction Status Date / Time No Known Allergies Allergy Verified 11/04/19 12:23 Home Medications Home Medications Medication Instructions Recorded Confirmed Type metoprolol succinate 100 mg 100 mg PO QAM #90 tab 01/11/19 11/04/19 Rx tablet,extended release 24 hr amoxicillin 500 mg capsule 500 mg PO UD PRN 02/26/19 11/04/19 History nebulizer accessories #1 ea 03/26/19 11/04/19 Rx nebulizers #1 ea 03/28/19 11/04/19 Rx lisinopril 30 mg tablet 30 mg PO QAM #90 tab 06/13/19 11/04/19 Rx apixaban 5 mg tablet 5 mg PO BID #180 tab 08/19/19 11/04/19 Rx budesonide-formoterol HFA 160 2 puff INHALATION BID #10.2 gm 08/28/19 11/04/19 Rx mcg-4.5 mcg/actuation aerosol inhaler ipratropium 0.5 mg-albuterol 3 mg 3 ml INH QID PRN #360 ml 08/28/19 11/04/19 Rx (2.5 mg base)/3 mL nebulization soln ipratropium 20 mcg-albuterol 100 1 puff INHALATION TID PRN #4 gm 08/28/19 11/04/19 Rx mcg/actuation mist for inhalation tiotropium bromide 2.5 2 puffs INH DAILY #4 gm 08/28/19 11/04/19 Rx mcg/actuation mist for inhalation furosemide 40 mg tablet 40 mg PO DAILY #100 tab 10/03/19 11/04/19 Rx atorvastatin 20 mg tablet 20 mg PO HS #90 tab 10/28/19 11/04/19 Rx montelukast 10 mg PO DAILY 11/04/19 11/04/19 History omeprazole 20 mg PO DAILY 11/04/19 11/04/19 History Patient History Medical History Atrial fibrillation Cancer MOHS ON NOSE (SKIN CANCER) Chronic obstructive pulmonary disease GERD (gastroesophageal reflux disease) History of Mohs micrographic surgery for skin cancer Hyperlipidemia Hypertension Surgical History Fistula REPAIRED History of cardiac cath History of cardiac radiofrequency ablation 5-6 YEARS AGO ([facility] BY DR. YIN) History of colonoscopy History of heart valve replacement MITRAL VALVE REPLACED 3 YEARS AGO ([facility]) History of tonsillectomy History of tooth extraction Status post anal fissurectomy Status post Mohs surgery left cheek and left arm (squamous cell) Family History Father Family hx colonic polyps Mother Heart disease Other Hypertension Social History Smoking Status: Current every day smoker Cigarettes Per Day: 40; Second Hand Exposure: No; Hx Alcohol Use: Yes Alcohol type: beer Hx Substance Use: No Preferred Language: Lithuanian Communication Ability: Effective Visual Impairment: Limited Hearing Ability: Normal Singing Telegram Performer Required: No Beliefs That Will Affect Care: None marital status: Current Living Situation: Spouse current occupational status: retired Feels Safe at Home: Yes Childhood Exposure to Second-Hand Smoke: Yes caffeine: Yes Dental Care, Regularly: Yes Physical Activity Frequency: 1-2 Times per Week Physical Activity Frequency Comment: regular Seatbelt Use: always Sunscreen Use: Yes Review of Systems Constitutional: + fever and + chills body shakes Respiratory: no dyspnea Gastrointestinal: no abdominal pain, no nausea, no vomiting and no change in bowel habits + soreness brigitte-anally, no drainage Physical Exam Physical Exam: awake/alert Respiratory: normal respiratory effort Gastrointestinal (Abdomen): + area of fluctuance & tenderness to palpation brigitte-anally of R buttocks Results & Data Vital Signs (Past 12 Hours) Vital Signs Temp Pulse Pulse Resp BP BP Pulse Ox 11/04/19 15:26 85 18 128/67 94 11/04/19 13:16 95 11/04/19 12:52 93 H 25 H 142/65 H 93 11/04/19 12:20 92 H 28 H 92 11/04/19 11:50 96 H 35 H 93 11/04/19 11:25 38.4 C H 98 H 18 130/85 94 11/04/19 11:17 103 H 31 H 130/85 CT abd pelvis IV con only CLINICAL HISTORY: Fever. Possible rectal fistula. COMPARISON STUDY: PET CT scan dated 10/18/2017 TECHNIQUE: The patient was scanned in a dynamic helical fashion during intravenous administration of 94 cc of Optiray 320 A dose lowering technique was utilized adhering to the principles of ALARA. CT DOSE: 589.17 mGy.cm FINDINGS: Lower chest: There is pulmonary emphysema. There are tree-in-bud opacities associated groundglass attenuation within the right lower lobe, likely postinflammatory. Liver: The serosal surface is slightly nodular. There is a to small to characterize 4 mm hypodensity within the left lobe anteriorly, likely repres enting a cyst. The portal vein and hepatic veins appear patent. Gallbladder: Cholelithiasis Spleen: Top normal in size. Pancreas: Unremarkable. Adrenal glands: Unremarkable. Kidneys: There is a 13 mm left renal cyst. There are renal vascular calcifications. There is no hydronephrosis. No solid renal masses are visualized Bowel: There are no transition zones indicate bowel obstruction. The appendix appears normal. There is no acute diverticulitis. Peritoneum: There is no intraperitoneal free air or abdominal ascites. Vasculature: The abdominal aorta is normal in course and caliber. Adenopathy: There are borderline enlarged left iliac chain and left inguinal lymph nodes. Pelvic viscera: The prostate is enlarged. There is borderline bladder wall thickening. There is mild bladder distention. Skeletal structures: There is a 26 mm right gluteal fold fluid collection containing air. This is consistent with an abscess. There is no definite perianal fistula. It should be noted that MRI is more sensitive for the detection of a perianal fistula. IMPRESSION: 1. No evidence of bowel obstruction. No evidence of free air 2. 26 mm right gluteal fold fluid collection consistent with abscess. There is no definite perianal fistula. It should be noted that MRI in this regard. 3. Borderline enlarged left iliac chain and left inguinal lymph nodes. ACT 112: Negative or not required by law. Electronically signed by: Sumit Chiu M.D. 11/04/2019 3:11 PM PG Care Time/CCT Total # of Minutes Spent Total Time Spent with Patient: Total time spent is greater than 50% in coordination of care (as documented) at patient's floor/unit and/or counseling patient: Coding Level of Care Code 23933 Office/Outpt Visit, New Diagnoses Perianal abscess K61.0
--- NOTE | 2019-11-04 16:56 | Operative Report (OR) ---
DATE OF OPERATION: 11/04/2019 PROCEDURE IN THE EMERGENCY ROOM NAME OF PROCEDURE: Incision and drainage of perirectal abscess. The patient was in his Emergency Room bed. He was in the right lateral decubitus position. The right anterior area of his anal area was swollen and fluctuant. We used 1% plain lidocaine to anesthetize the skin and subcutaneous tissue. 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 There was a second area superior to that and some scar tissue which I was able to aspirate purulent fluid with an 18-gauge needle. This was opened and we did recover a fair amount of purulent fluid. Then we placed gauze adia. I held some pressure with gauze for a while and then placed a gauze pad and had him lay supine. The patient tolerated the procedure well. I attest to the content of the Intraoperative Record and any orders documented therein. Any exceptions are noted below. BC
--- NOTE | 2019-11-04 18:49 | History & Physical Report ---
Date of Service November 04, 2019 Assessment & Plan (1) Sepsis: 79 yo M PMHx Afib on chronic AC, COPD with no baseline O2 requirement, R sided CHF/pulmonary HTN, GERD, cardiomyopathy with Hx mitral valve replacement for admission for sepsis 2/2 perianal abscess vs. LLE cellulitis. Sepsis 2/2 perianal abscess vs. LLE cellulitis: - Patient with leukocytosis to 13.7 with L shift, febrile to 38.4, tachycardia, tachypnea on arrival. - BCx x2 drawn, empiric Zosyn given. - CXR with R costophrenic angle blunting. - CTAP showed R lung base without signs suggestive of infection. - CTAP showed perianal 26mm fluid collection consistent with abscess. - On my physical exam patient with L great toe cellulitis and wound with purulent drainage. - Will continue to cover empirically with Zosyn for typical skin george and gut george given location of abscess. - MRSA nares ordered, If positive will add vancomycin to cover for MRSA. - NSS 500mL bolus over several hours ordered, as patient's vitals have stabilized and patient with history of pulmonary HTN and trace edema on exam. - Will hold Lasix at this time. - XR L foot ordered to r/o osteomyelitis. - General Surgery and wound care nurse consults placed. - Trend CBC while admitted. COPD: - Without baseline O2 requirement, oxygen as needed to maintain O2 saturations >90%. On room air since arrival to ED. - Continue home albuterol, nebs PRN; tiotropium 2 puffs daily, budesonide/formoterol 2 puffs BID. Atrial fibrillation: - On chronic Eliquis therapy. Continue while admitted. - With HR normalized at this time. Suspect elevated HR on arrival due to sepsis which has since improved. - Continue metoprolol. - Continue cardiac monitoring while admitted. Hx cardiomyopathy, mitral valve replacement, pulmonary HTN, right-sided heart failure: - Follows with Dr. Mann; had been on aspirin and Xarelto previously but due to bleeding aspirin was stopped and Xarelto d/c'ed in favor of Eliquis. - Last Echo March 2019 with EF 45%, global hypokinesis, mild LVH. Biatrial dilation, Trace MR s/p mitral valve replacement, moderate pulmonary hypertension with RVSP 53mmHg, and mild RV dilation with mildly reduced systolic function. - CXR this admission without findings suggestive of pulmonary vascular congestion. - Continue lisinopril, metoprolol. Hold Lasix due to sepsis as above. - Continue to monitor fluid status closely; daily weights. GERD: - Patient on omeprazole for chronic GERD. No symptoms at this time. - While admitted start pantoprazole 40mg daily. HTN: - BP normotensive at this time. - continue lisinopril, metoprolol. Code Status: Conditional Code; no intubation, all else okay FEN/GI: Heart Healthy DVT ppx: Eliquis 5mg BID Dispo: Med/Surg with Telemetry (2) Perianal abscess: (3) Cellulitis of great toe, left: (4) Pulmonary hypertension assoc with unclear multi-factorial mechanisms: (5) Acid reflux: (6) Anticoagulant long-term use: (7) Arteriosclerotic coronary artery disease: (8) Atrial fibrillation: (9) Cardiomyopathy: (10) Chronic obstructive pulmonary disease: (11) History of mitral valve replacement with bioprosthetic valve: (12) Hypertension: History of Present Illness Chief Complaint: chills, malaise Primary Care Provider: Katelynn Patel MD 79 yo M PMHx Afib on chronic Eliquis therapy, COPD with no baseline O2 requirement, R sided CHF/pulmonary HTN with EF 45%, GERD, cardiomyopathy with Hx mitral valve replacement, prediabetes with Hgb A1c 6.2% August 2019, anal fistula several decades ago with complaints of malaise and rigors today while at Dermatology office for scheduled Mohs surgery for nose BCC. States that for the last 3 days he has been more fatigued, and today while at the Derm office had uncontrollable shivers and felt "very unwell and couldn't remember what was going on until I got here". This was in the setting of 3 days of anal pain, and 2 weeks of L great toe pain. He states that every 6-8 years or so since having an anal fistula when he was 34 he will have some irritation of the same area which is generally alleviated with warm compresses and "he doesn't have to bother anyone with it". He also endorses that around two weeks ago he "stubbed his L big toe" and since then has been "nursing a wound on that toe with antibiotic ointment and bandages". On arrival to ED patient was febrile to 38.4, tachycardic to low 100s, tachypneic to 20-30s, and saturating well on room air. Blood cultures x2 were drawn and patient was started on empiric Zosyn. CXR with R costophrenic angle blunting, CTAP with R lung base tree in bud opacities and 26mm perianal abscess. General Surgery saw patient and was able to drain abscess and place packing. On my interview did not endorse any increased SOB (has baseline intermittent SOB alleviated with albuterol inhaler for COPD), CP, nausea or vomiting, constipation or diarrhea. Allergies Allergy/AdvReac Type Severity Reaction Status Date / Time No Known Allergies Allergy Verified 11/04/19 12:23 Home Medications Home Medications Medication Instructions Recorded Confirmed Type metoprolol succinate 100 mg 100 mg PO QAM #90 tab 01/11/19 11/04/19 Rx tablet,extended release 24 hr amoxicillin 500 mg capsule 500 mg PO UD PRN 02/26/19 11/04/19 History nebulizer accessories #1 ea 03/26/19 11/04/19 Rx nebulizers #1 ea 03/28/19 11/04/19 Rx lisinopril 30 mg tablet 30 mg PO QAM #90 tab 06/13/19 11/04/19 Rx apixaban 5 mg tablet 5 mg PO BID #180 tab 08/19/19 11/04/19 Rx budesonide-formoterol HFA 160 2 puff INHALATION BID #10.2 gm 08/28/19 11/04/19 Rx mcg-4.5 mcg/actuation aerosol inhaler ipratropium 0.5 mg-albuterol 3 mg 3 ml INH QID PRN #360 ml 08/28/19 11/04/19 Rx (2.5 mg base)/3 mL nebulization soln ipratropium 20 mcg-albuterol 100 1 puff INHALATION TID PRN #4 gm 08/28/19 11/04/19 Rx mcg/actuation mist for inhalation tiotropium bromide 2.5 2 puffs INH DAILY #4 gm 08/28/19 11/04/19 Rx mcg/actuation mist for inhalation furosemide 40 mg tablet 40 mg PO DAILY #100 tab 10/03/19 11/04/19 Rx atorvastatin 20 mg tablet 20 mg PO HS #90 tab 10/28/19 11/04/19 Rx montelukast 10 mg PO DAILY 11/04/19 11/04/19 History omeprazole 20 mg PO DAILY 11/04/19 11/04/19 History Past Med/Surg History Medical History Atrial fibrillation Cancer MOHS ON NOSE (SKIN CANCER) Chronic obstructive pulmonary disease GERD (gastroesophageal reflux disease) History of Mohs micrographic surgery for skin cancer Hyperlipidemia Hypertension Surgical History Fistula REPAIRED History of cardiac cath History of cardiac radiofrequency ablation 5-6 YEARS AGO ([facility] BY DR. YIN) History of colonoscopy History of heart valve replacement MITRAL VALVE REPLACED 3 YEARS AGO ([facility]) History of tonsillectomy History of tooth extraction Status post anal fissurectomy Status post Mohs surgery left cheek and left arm (squamous cell) Family History Father Family hx colonic polyps Mother Heart disease Other Hypertension Social History Smoking Status: Former smoker Cigarettes Per Day: 40; Second Hand Exposure: No; Do You Dip or Chew Tobacco: No; Hx Alcohol Use: Yes Alcohol type: beer Hx Substance Use: No Preferred Language: Taiwanese Communication Ability: Effective Visual Impairment: Limited Hearing Ability: Normal Seam Stay Stitcher Required: No Beliefs That Will Affect Care: None marital status: Current Living Situation: Spouse current occupational status: retired Other Information That Helps Us Care for You: No Feels Safe at Home: Yes Safety Concerns: Feels Safe At This Time Childhood Exposure to Second-Hand Smoke: Yes caffeine: Yes Dental Care, Regularly: Yes Physical Activity Frequency: 1-2 Times per Week Physical Activity Frequency Comment: regular Seatbelt Use: always Sunscreen Use: Yes Review of Systems Review of Systems: All systems reviewed & are unremarkable except as noted in HPI & below Constitutional: + chills and + fatigue; no fever and no malaise Respiratory: no cough, no dyspnea and no wheezing Cardiovascular: + edema (chronic R>L extremity); no chest pain and no palpitations Gastrointestinal: no abdominal pain, no constipation and no diarrhea/loose stools Physical Exam Constitutional: WD/WN, vitals as above no acute distress Eyes: PERRL, conjunctivae normal, anicteric sclerae ENMT: external ear and nose normal, oropharynx normal Neck: normal visual inspection Respiratory: normal respiratory effort, lungs clear to auscultation Cardiovascular: HR irregularly irregular, ~70bpm, systolic click over LMSB otherwise no murmurs Trace peripheral edema b/l LE L>R Gastrointestinal (Abdomen): normal bowel sounds, soft, nontender, no hepatosplenomegaly Musculoskeletal: no cyanosis or clubbing, extremities motor strength 5/5 Skin: Per my (Dr. Cesar's) exam: L medial great toe with with 2x1cm ulcerat ion with granulation tissue and some questionable mild purulent drainage onto bandage Per Dr. Zabala's exam: perianal former abscess site with packing in place, some serosanguinous drainage. Neurologic: CN's II-XI intact bilaterally sensation intact bilateral LE, UE, face Psychiatric: A+Ox3, euthymic affect Results & Data Results & Data ([facility]) Vital Signs (Past 12 Hours) Vital Signs Temp Pulse Pulse Resp BP BP Pulse Ox 11/04/19 17:26 71 18 118/74 95 11/04/19 15:26 85 18 128/67 94 11/04/19 13:16 95 11/04/19 12:52 93 H 25 H 142/65 H 93 11/04/19 12:20 92 H 28 H 92 11/04/19 11:50 96 H 35 H 93 11/04/19 11:25 38.4 C H 98 H 18 130/85 94 11/04/19 11:17 103 H 31 H 130/85 Laboratory Results 11/04/19 11/04/19 11/04/19 Range/Units Unknown 20:00 12:50 WBC (4.8-10.8) K/uL RBC (4.7-6.1) M/uL Hgb (14.0-18.0) g/dL Hct (42-52) % MCV (80-100) fL MCH (25-34) pg MCHC (32-36) g/dL RDW Std Deviation (36.4-46.3) fL RDW Coeff of Kamron (11.5-14.5) % Plt Count (130-400) K/uL MPV (7.4-10.4) fL Immature Gran % (Auto) % Neut % (Auto) % Lymph % (Auto) % [place] % (Auto) % Eos % (Auto) % Baso % (Auto) % Neut # (Auto) (1.4-6.5) K/uL Lymph # (Auto) (1.2-3.4) K/uL [place] # (Auto) (0.11-0.59) K/uL Eos # (Auto) (0-0.5) K/uL Baso # (Auto) (0-0.2) K/uL Immature Gran # (Auto) (0.00-0.02) K/uL PT (9.0-12.0) Seconds INR (0.9-1.1) APTT (21.0-31.0) Seconds PTT Ratio Sodium (136-145) mmol/L Potassium (3.5-5.1) mmol/L Chloride (98-107) mmol/L Carbon Dioxide (21-32) mmol/L Anion Gap (3-11) BUN (7-18) mg/dl Creatinine (0.6-1.4) mg/dl Est Cr Clr Drug Dosing ml/min Est GFR ( Amer) Est GFR (Non-Af Amer) BUN/Creatinine Ratio (10-20) Glucose (70-99) mg/dl Lactate (0.4-2.0) mmol/L Calcium (8.5-10.1) mg/dl Magnesium (1.8-2.4) mg/dl Total Bilirubin (0.2-1) mg/dl AST (15-37) U/L ALT (12-78) U/L Alkaline Phosphatase (45-117) U/L Troponin I 0.019 (0-0.045) ng/ml Total Protein (6.4-8.2) gm/dl Albumin (3.4-5.0) gm/dl Globulin (2.5-4.0) gm/dl Albumin/Globulin Ratio (0.9-2) Procalcitonin 0.13 (0-0.5) ng/ml Nasal Screen MRSA (PCR) Negative (Negative) 11/04/19 11/04/19 11/04/19 Range/Units 12:50 12:50 12:50 WBC (4.8-10.8) K/uL RBC (4.7-6.1) M/uL Hgb (14.0-18.0) g/dL Hct (42-52) % MCV (80-100) fL MCH (25-34) pg MCHC (32-36) g/dL RDW Std Deviation (36.4-46.3) fL RDW Coeff of Kamron (11.5-14.5) % Plt Count (130-400) K/uL MPV (7.4-10.4) fL Immature Gran % (Auto) % Neut % (Auto) % Lymph % (Auto) % [place] % (Auto) % Eos % (Auto) % Baso % (Auto) % Neut # (Auto) (1.4-6.5) K/uL Lymph # (Auto) (1.2-3.4) K/uL [place] # (Auto) (0.11-0.59) K/uL Eos # (Auto) (0-0.5) K/uL Baso # (Auto) (0-0.2) K/uL Immature Gran # (Auto) (0.00-0.02) K/uL PT 12.3 H (9.0-12.0) Seconds INR 1.2 H (0.9-1.1) APTT 33.0 H (21.0-31.0) Seconds PTT Ratio 1.2 Sodium 136 (136-145) mmol/L Potassium 3.9 (3.5-5.1) mmol/L Chloride 101 (98-107) mmol/L Carbon Dioxide 27 (21-32) mmol/L Anion Gap 8.0 (3-11) BUN 14 (7-18) mg/dl Creatinine 1.06 (0.6-1.4) mg/dl Est Cr Clr Drug Dosing 64.1 ml/min Est GFR ( Amer) 78.1 Est GFR (Non-Af Amer) 67.4 BUN/Creatinine Ratio 13.2 (10-20) Glucose 111 H (70-99) mg/dl Lactate 1.9 (0.4-2.0) mmol/L Calcium 8.7 (8.5-10.1) mg/dl Magnesium 1.6 L (1.8-2.4) mg/dl Total Bilirubin 1.1 H (0.2-1) mg/dl AST 15 (15-37) U/L ALT 17 (12-78) U/L Alkaline Phosphatase 117 (45-117) U/L Troponin I 0.025 (0-0.045) ng/ml Total Protein 6.9 (6.4-8.2) gm/dl Albumin 3.3 L (3.4-5.0) gm/dl Globulin 3.6 (2.5-4.0) gm/dl Albumin/Globulin Ratio 0.9 (0.9-2) Procalcitonin (0-0.5) ng/ml Nasal Screen MRSA (PCR) (Negative) 11/04/19 Range/Units 12:50 WBC 13.69 H (4.8-10.8) K/uL RBC 4.26 L (4.7-6.1) M/uL Hgb 13.2 L (14.0-18.0) g/dL Hct 39.2 L (42-52) % MCV 92.0 (80-100) fL MCH 31.0 (25-34) pg MCHC 33.7 (32-36) g/dL RDW Std Deviation 46.1 (36.4-46.3) fL RDW Coeff of Kamron 13.8 (11.5-14.5) % Plt Count 196 (130-400) K/uL MPV 10.7 H (7.4-10.4) fL Immature Gran % (Auto) 0.3 % Neut % (Auto) 84.6 % Lymph % (Auto) 5.0 % [place] % (Auto) 9.6 % Eos % (Auto) 0.4 % Baso % (Auto) 0.1 % Neut # (Auto) 11.58 H (1.4-6.5) K/uL Lymph # (Auto) 0.69 L (1.2-3.4) K/uL [place] # (Auto) 1.31 H (0.11-0.59) K/uL Eos # (Auto) 0.05 (0-0.5) K/uL Baso # (Auto) 0.02 (0-0.2) K/uL Immature Gran # (Auto) 0.04 H (0.00-0.02) K/uL PT (9.0-12.0) Seconds INR (0.9-1.1) APTT (21.0-31.0) Seconds PTT Ratio Sodium (136-145) mmol/L Potassium (3.5-5.1) mmol/L Chloride (98-107) mmol/L Carbon Dioxide (21-32) mmol/L Anion Gap (3-11) BUN (7-18) mg/dl Creatinine (0.6-1.4) mg/dl Est Cr Clr Drug Dosing ml/min Est GFR ( Amer) Est GFR (Non-Af Amer) BUN/Creatinine Ratio (10-20) Glucose (70-99) mg/dl Lactate (0.4-2.0) mmol/L Calcium (8.5-10.1) mg/dl Magnesium (1.8-2.4) mg/dl Total Bilirubin (0.2-1) mg/dl AST (15-37) U/L ALT (12-78) U/L Alkaline Phosphatase (45-117) U/L Troponin I (0-0.045) ng/ml Total Protein (6.4-8.2) gm/dl Albumin (3.4-5.0) gm/dl Globulin (2.5-4.0) gm/dl Albumin/Globulin Ratio (0.9-2) Procalcitonin (0-0.5) ng/ml Nasal Screen MRSA (PCR) (Negative) Diagnostic Findings CT abdomen/pelvis with IV contrast only: IMPRESSION: 1. No evidence of bowel obstruction. No evidence of free air 2. 26 mm right gluteal fold fluid collection consistent with abscess. There is no definite perianal fistula. It should be noted that MRI in this regard. 3. Borderline enlarged left iliac chain and left inguinal lymph nodes. Also with nodular contour to serosal surface of the liver and a 4 mm left lobe anterior cyst most likely of the liver, and cholelithiasis. Code Status & VTE Plan VTE Prophylaxis Plan VTE Prophylaxis will be ordered: Yes Supervising Physician Co-Signing Physician Notes I personally examined the patient and verified all martíenz points of history and exam, discussed case, and agree with decision making with Dr. Landin with the following additions/exceptions: Patient is a 79-year-old male with history noted as above, here with rigors with fever, fatigue, acute metabolic encephalopathy-found to be septic with most likely source being perianal abscess, but also with finding of left medial great toe ulceration with mild surrounding cellulitis. He denied any toe pain to me at this time and reports that the mild redness around the left great toe he thinks is just because some of the superficial layers of skin have peeled off since the swelling initially of the toe has gone down. He has mostly been having significant pain in his anal region which is now much improved status post drainage. Denies increase in his chronic shortness of breath, no increase in chronic cough, no chest pains. No headache, no nausea/vomiting/diarrhea/constipation or abdominal pain. No known COVID contacts and has been being very careful to stay socially distant. History and ROS otherwise reviewed as above Vitals reviewed Gen: AAOx3, NAD HEENT: Anicteric sclerae, EOMI CV: RRR no mgr nl S1S2 Pulm: CTAB no wcr Abd: +BS soft NT ND no masses or hernias, rectal region with packing in place with scant amount of dried blood Ext: No edema, 2+ DP pulses, left medial great toe with 1.5 cm ulceration with granulation tissue and very mild surrounding erythema of the medial great toe Skin: Great toe as above, otherwise no rashes, warm/dry Neuro: Full strength throughout 79-year-old male here with sepsis most likely from perianal abscess, but will check x-rays of great toe to rule out osteomyelitis. -Follow blood cultures, continue IV antibiotics, gentle IV fluids for sepsis Appreciate general surgery consultation -Plan outlined otherwise as above Resident Activity Tracking Resident Involvement: Resident Care Provided Care Provided: Adult Hospital Medicine (1) Chronic obstructive pulmonary disease COPD type: unspecified COPD Qualified Code(s): J44.9 - Chronic obstructive pulmonary disease, unspecified
--- NOTE | 2019-11-04 19:16 | XRay Report ---
XR foot LT min 3V routine CLINICAL HISTORY: L great toe infection, r/o osteo COMPARISON: None. DISCUSSION: No acute fractures or dislocations are visualized. There are extensive vascular calcifica tions. There is calcaneal spurring. There is spurring involving the distal phalanx of the great toe. Degenerative changes are evident. Although no discrete cortical destructive lesions are evident, ther e is apparent decreased mineralization involving the medial base of the distal phalanx of the great t oe. A lytic process cannot be excluded. An MRI could be obtained in follow-up as deemed clinically in dicated. IMPRESSION: 1. Apparent decreased mineralization involving the base of the distal phalanx of the great toe medial ly. Although definitive cortical destruction is not visualized, an early lytic process cannot be excl uded. An MRI could be obtained in follow-up as deemed clinically indicated. ACT 112: Negative or not required by law. Electronically signed by: Sumit Chiu M.D. 11/04/2019 7:15 PM
[2019-11-04] MEDS ORDERED: IPRATROPIUM BROMIDE/ALBUTEROL respimat INH INH PRN (19:24)
[2019-11-04] MEDS ORDERED: ONDANSETRON INJ 2 MG/ML 2 ML VIAL IV PRN (19:24)
[2019-11-04] MEDS ORDERED: ACETAMINOPHEN 325 MG TAB PO PRN (19:24)
[2019-11-04] MEDS ORDERED: ALBUT/IPRATROP 3MG/0.5MG NEB 3 ML VIAL INH PRN (19:24)
[2019-11-04] MEDS ORDERED: POLYETHYLENE (MIRALAX) 17 GM PACK PO PRN (19:24)
[2019-11-04] MEDS ORDERED: ALBUTEROL HFA 8 GM INHALER INH PRN (20:07)
[2019-11-04] MEDS ORDERED: IPRATROPIUM BROMIDE HFA INHALER INH PRN (20:08)
[2019-11-04] MEDS ORDERED: SODIUM CHLORIDE 0.9% 500 ML IV SCH (20:15)
[2019-11-04] MEDS: PIPERACILLIN/TAZOBACTAM 3.375 GM in DEXTROSE 5% 100 ML IV SCH (20:50)
[2019-11-04] MEDS: APIXABAN 5 MG TABLET PO SCH (20:50)
[2019-11-04] MEDS ORDERED: ATORVASTATIN 20 MG TAB PO SCH (21:00)
--- NOTE | 2019-11-04 22:49 | Billing Data ---
Date of Service November 04, 2019 Coding Level of Care Code 48486 Initial Inpt Care Lvl 3
[2019-11-05 01:09] LABS: Appearance Urine Clear (Clear); Bilirubin Urine Negative (Negative); Blood Urine Negative (Negative); Color Urine Yellow; Glucose Urine UA Negative (Negative); Ketones Urine Negative (Negative); Leukocyte Esterase Urine Negative (Negative); Nitrite Urine Negative (Negative); Protein Urine Negative (Negative); Specific Gravity Urine > 1.045 (1.000-1.030); Urobilinogen Urine Negative (Negative); pH Urine 6.5 (4.5-7.5)
[2019-11-05] MEDS: PIPERACILLIN/TAZOBACTAM 3.375 GM in DEXTROSE 5% 100 ML IV SCH ×2 (04:55→13:32)
--- NOTE | 2019-11-05 06:32 | Surgery Progress Note ---
Date of Service November 05, 2019 Assessment & Plan (1) Abscess, perianal: Patient did not have significant pain or significant bleeding Some bloody drainage on his dressing which is expected even for normal patients not on anticoagulation Packing removed this morning Plan would be to continue the patient on antibiotics for 10 to 14 days and Follow him in the office closely If he would recur we may need to consider intervention in the operating room which would require stopping the Eliquis For 2 - 3 days Results & Data Vital Signs (Past 12 Hours) Vital Signs Temp Pulse Resp BP Pulse Ox 11/05/19 04:00 37.7 C H 74 20 110/70 93 11/04/19 23:08 36.8 C 79 20 145/85 H 95 11/04/19 19:15 36.8 C 78 18 132/63 96 PG Care Time/CCT Total # of Minutes Spent Total Time Spent with Patient: Total time spent is greater than 50% in coordination of care (as documented) at patient's floor/unit and/or counseling patient: Coding Level of Care Code 88017 Inpt Consult Level 3 Diagnoses Abscess, perianal K61.0
[2019-11-05] MEDS: APIXABAN 5 MG TABLET PO SCH (08:10)
[2019-11-05 08:22] LABS: Basophils # (auto) 0.02 K/uL (0-0.2); Basophils % (auto) 0.1 %; Eosinophils # (auto) 0.12 K/uL (0-0.5); Eosinophils % (auto) 0.9 %; Hematocrit (blood only) 40.5 % (42-52); Hemoglobin 13.4 g/dL (14.0-18.0); Immature Granulocytes # (auto) 0.02 K/uL (0.00-0.02); Immature Granulocytes % (auto) 0.1 %; Lymphocytes # (auto) 0.56 K/uL (1.2-3.4); Mean Corpuscular Hemoglobin 30.9 pg (25-34); Mean Corpuscular Hgb Conc 33.1 g/dL (32-36); Mean Corpuscular Volume 93.5 fL (80-100); Mean Platelet Volume 11.2 fL (7.4-10.4); Monocytes # (auto) 0.52 K/uL (0.11-0.59); Monocytes % (auto) 3.7 %; Neutrophils # (auto) 12.67 K/uL (1.4-6.5); Neutrophils % (auto) 91.2 %; Platelet Count 190 K/uL (130-400); RDW Standard Deviation 47.9 fL (36.4-46.3); Red Blood Count 4.33 M/uL (4.7-6.1); White Blood Count 13.91 K/uL (4.8-10.8)
[2019-11-05 08:48] LABS: BUN Creatinine Ratio 12.4 (10-20); Calcium 8.5 mg/dl (8.5-10.1); Creatinine Clr Calc Pharmacy 55.2 ml/min; Est GFR (African American) 65.2; Est GFR (Non-African American) 56.3
[2019-11-05] MEDS ORDERED: MONTELUKAST SODIUM 10 MG TABLET PO SCH (09:00)
[2019-11-05] MEDS ORDERED: METOPROLOL SUCC 50MG EXT REL TAB PO SCH (09:00)
[2019-11-05] MEDS ORDERED: lisinopriL 10 MG TAB PO SCH (09:00)
[2019-11-05] MEDS ORDERED: PANTOprazole 40 MG TAB PO SCH (09:00)
[2019-11-05] MEDS ORDERED: FLUTICASONE/VILANTEROL 100/25MCG 14 PUFFS/INHALER INH SCH (09:00)
[2019-11-05] MEDS ORDERED: UMECLIDINIUM BROMIDE 62.5MCG/BLISTER 7 PUFFS/INHALER INH SCH (09:00)
--- NOTE | 2019-11-06 16:42 | Electrocardiogram Report ---
Test Reason : Blood Pressure : / mmHG Vent. Rate : 099 BPM Atrial Rate : 097 BPM P-R Int : 000 ms QRS Dur : 122 ms QT Int : 370 ms P-R-T Axes : 000 086 003 degrees QTc Int : 474 ms Atrial fibrillation Right bundle branch block Abnormal ECG When compared with ECG of 19-APR-2011 07:28, Atrial fibrillation has replaced Sinus rhythm Vent. rate has increased BY [address] now depressed in Anterior leads T wave inversion now evident in Anterior leads Confirmed by Kodak Mann ([id number]) on 11/06/2019 4:42:17 PM Referred By: REFERRED SELF Confirmed By:Kodak Mann
--- NOTE | 2019-11-12 07:25 | Discharge Summary ---
Date of Service November 05, 2019 Admission HPI Per Admitting Provider 79 yo M PMHx Afib on chronic Eliquis therapy, COPD with no baseline O2 requirement, R sided CHF/pulmonary HTN with EF 45%, GERD, cardiomyopathy with Hx mitral valve replacement, prediabetes with Hgb A1c 6.2% August 2019, anal fistula several decades ago with complaints of malaise and rigors today while at Dermatology office for scheduled Mohs surgery for nose BCC. States that for the last 3 days he has been more fatigued, and today while at the Derm office had uncontrollable shivers and felt "very unwell and couldn't remember what was going on until I got here". This was in the setting of 3 days of anal pain, and 2 weeks of L great toe pain. He states that every 6-8 years or so since having an anal fistula when he was 34 he will have some irritation of the same area which is generally alleviated with warm compresses and "he doesn't have to bother anyone with it". He also endorses that around two weeks ago he "stubbed his L big toe" and since then has been "nursing a wound on that toe with antibiotic ointment and bandages". On arrival to ED patient was febrile to 38.4, tachycardic to low 100s, tachypneic to 20-30s, and saturating well on room air. Blood cultures x2 were drawn and patient was started on empiric Zosyn. CXR with R costophrenic angle blunting, CTAP with R lung base tree in bud opacities and 26mm perianal abscess. General Surgery saw patient and was able to drain abscess and place packing. On my interview did not endorse any increased SOB (has baseline intermittent SOB alleviated with albuterol inhaler for COPD), CP, nausea or vomiting, constipation or diarrhea. Principal Diagnosis perianal abscess Discharge Exam Constitutional: WD/WN, vitals as above no acute distress Eyes: PERRL, conjunctivae normal, anicteric sclerae ENMT: external ear and nose normal, oropharynx normal Neck: normal visual inspection Respiratory: normal respiratory effort, lungs clear to auscultation Cardiovascular: RRR, ~70bpm, systolic click over LMSB otherwise no murmurs Trace peripheral edema b/l LE L>R Gastrointestinal (Abdomen): normal bowel sounds, soft, nontender, no hepatosplenomegaly Musculoskeletal: no cyanosis or clubbing, extremities motor strength 5/5 Skin: Per my (Dr. Cesar's) exam: L medial great toe with with 2x1cm ulceration with granulation tissue and some questionable mild purulent drainage onto bandage Per Dr. Zabala's exam: perianal former abscess site with packing in place, some serosanguinous drainage. Neurologic: CN's II-XI intact bilaterally sensation intact bilateral LE, UE, face Psychiatric: A+Ox3, euthymic affect Discharge Data Allergies Allergy/AdvReac Type Severity Reaction Status Date / Time No Known Allergies Allergy Verified 11/04/19 12:23 Consultations 11/04/19 16:08 ED Decision to Admit Stat 11/04/19 19:24 Consult General Surgery Routine Ordered Studies 11/04/19 12:31 CT head/brain wo con Stat 11/04/19 14:30 CT abd pelvis IV con only Stat Hospital Course (1) Sepsis: 79 yo M PMHx Afib on chronic AC, COPD with no baseline O2 requirement, R sided CHF/pulmonary HTN, GERD, cardiomyopathy with Hx mitral valve replacement for admission for sepsis 2/2 perianal abscess vs. LLE cellulitis. Sepsis 2/2 perianal abscess vs. LLE cellulitis: - Patient with leukocytosis to 13.7 with L shift, febrile to 38.4, tachycardia, tachypnea on arrival. - BCx x2 drawn, empiric Zosyn given. - CXR with R costophrenic angle blunting. - CTAP showed R lung base without signs suggestive of infection. - CTAP showed perianal 26mm fluid collection consistent with abscess. - On my physical exam patient with L great toe cellulitis and wound with purulent drainage. - Will continue to cover empirically with Zosyn for typical skin george and gut george given location of abscess. - MRSA nares ordered, If positive will add vancomycin to cover for MRSA. - NSS 500mL bolus over several hours ordered, as patient's vitals have stabilized and patient with history of pulmonary HTN and trace edema on exam. - Will hold Lasix at this time. - XR L foot ordered to r/o osteomyelitis. - General Surgery and wound care nurse consults placed. - Trend CBC while admitted. On day 2 of hospital stay: Patient did not have significant pain or significant bleeding Some bloody drainage on his dressing which is expected even for normal patients not on anticoagulation Packing removed this morning Plan would be to continue the patient on antibiotics for 10 to 14 days and Follow him in the office closely If he would recur we may need to consider intervention in the operating room which would require stopping the Eliquis For 2 - 3 days Patient improved and asked to be discharged. Explained to patient to return if is symptoms worsen. COPD: - Without baseline O2 requirement, oxygen as needed to maintain O2 saturations >90%. On room air since arrival to ED. - Continue home albuterol, nebs PRN; tiotropium 2 puffs daily, budesonide/formoterol 2 puffs BID. Atrial fibrillation: - On chronic Eliquis therapy. Continue while admitted. - With HR normalized at this time. Suspect elevated HR on arrival due to sepsis which has since improved. - Continue metoprolol. - Continue cardiac monitoring while admitted. Hx cardiomyopathy, mitral valve replacement, pulmonary HTN, right-sided heart failure: - Follows with Dr. Mann; had been on aspirin and Xarelto previously but due to bleeding aspirin was stopped and Xarelto d/c'ed in favor of Eliquis. - Last Echo March 2019 with EF 45%, global hypokinesis, mild LVH. Biatrial dilation, Trace MR s/p mitral valve replacement, moderate pulmonary hypertension with RVSP 53mmHg, and mild RV dilation with mildly reduced systolic function. - CXR this admission without findings suggestive of pulmonary vascular congestion. - Continue lisinopril, metoprolol. -resume home meds at discharge GERD: - Patient on omeprazole for chronic GERD. No symptoms at this time. - While admitted start pantoprazole 40mg daily. HTN: - BP normotensive at this time. - continue lisinopril, metoprolol. Code Status: Conditional Code; no intubation, all else okay FEN/GI: Heart Healthy DVT ppx: Eliquis 5mg BID (2) Perianal abscess: (3) Cellulitis of great toe, left: (4) Pulmonary hypertension assoc with unclear multi-factorial mechanisms: (5) Acid reflux: (6) Anticoagulant long-term use: (7) Arteriosclerotic coronary artery disease: (8) Atrial fibrillation: (9) Cardiomyopathy: (10) Chronic obstructive pulmonary disease: (11) History of mitral valve replacement with bioprosthetic valve: (12) Hypertension: Total Time Total Time Spent Total Time Spent (In Minutes): 32 Total Time Includes: Examination of the Patient, Discharge Planning and Medication Reconciliation Discharge Plan Discharge Items Patient Disposition: Home - Self-Care Reason For Visit: SEPSIS 2/2 PERIANAL ABSCESS Discharge Diagnosis: perianal abscess Activity: Resume your previous activity Lifting: Gradually increase as tolerated Bathing: No limitations Sexual Activity: When tolerated Exercise/Sports: Gradually increase as tolerated Driving/Machine Use: Resume 1 day after discharge Non-emergency contact: Primary Care Provider Call non-emergency contact if: you have any medication questions, your symptoms worsen, your pain is not controlled, your pain is worsening, you have a fever, your temperature is above 101.5, your wound has increased redness and your wound pain has increased Follow-up/Referrals: Dmitri Sommer MD, FACS [Physician] - (Please call to schedule follow up in clinic within 1-2 weeks) Katelynn Patel MD [Primary Care Provider] - Diet: Heart Healthy Addtl Attending Provider Instructions: You should take Sitz bath 2-3 times daily to help with wound healing Recommend folllowup with Dr. Sommer as an outpatient in 1 week. Continue antibiotics for 10 days. Dry dressing changes daily to lesion. Pending Studies at Discharge: No Stand-Alone Forms: My ITYZ, Smoking Cessation Medications and DC Order Prescriptions: New amoxicillin-pot clavulanate 875-125 mg tablet 1 tab PO BID Qty: 20 RF: 0 Continued metoprolol succinate 100 mg tablet extended release 24 hr 100 mg PO QAM Qty: 90 RF: 3 (DME) nebulizer accessories kit See Rx Instructions .ROUTE .MEDSUPPLY Qty: 1 RF: 0 (DME) nebulizers [facility] [place] See Rx Instructions [id number] .MEDSUPPLY Qty: 1 RF: 0 lisinopril 30 mg tablet 30 mg PO QAM Qty: 90 RF: 3 Eliquis 5 mg tablet 5 mg PO BID Qty: 180 RF: 3 furosemide [Lasix] 40 mg tablet 40 mg PO DAILY Qty: 100 RF: 1 atorvastatin 20 mg tablet 20 mg PO HS Qty: 90 RF: 0 Combivent Respimat 20-100 mcg/actuation mist 1 puff INHALATION TID PRN (Reason: shortness of breath or wheezing) Qty: 4 RF: 5 Symbicort 160-4.5 mcg/actuation HFA aerosol inhaler 2 puff INHALATION BID Qty: 10.2 RF: 5 Spiriva Respimat 2.5 mcg/actuation mist 2 puffs INH DAILY Qty: 4 RF: 5 ipratropium-albuterol 0.5 mg-3 mg(2.5 mg base)/3 mL solution for nebulization 3 ml INH QID PRN (Reason: shortness of breath or wheezing) Qty: 360 RF: 2 amoxicillin 500 mg capsule 500 mg PO UD PRN (Reason: BEFORE DENTAL PROCEDURE) RF: 0 montelukast 10 mg tablet 10 mg PO DAILY RF: 0 omeprazole 20 mg capsule,delayed release(DR/EC) 20 mg PO DAILY RF: 0 Discharge Orders: Discharge Order (Routine); Ordered 11/05/19 Ordered By: Ken Monteiro Admission Data Admit Date/Time: 11/04/19 18:40 Attending Provider: Ken Monteiro Admit Provider: Jennifer Cesar Primary Care Provider: Katelynn Patel Other Providers: Mireya Zabala ; Dmitri Sommer Other Interventions: Discharge Summary Assessment (RN) Last Done: 11/05/19 15:43 DC Date/Time DO NOT enter until pt leaves facility: 11/05/19 16:55 Coding Level of Care Code D/C Day Management >30 mins Diagnoses Sepsis A41.9 Perianal abscess K61.0 Cellulitis of great toe, left L03.032 Pulmonary hypertension assoc with unclear multi-factorial mechanisms I27.29 Acid reflux K21.9 Anticoagulant long-term use Z79.01 Arteriosclerotic coronary artery disease I25.10 Atrial fibrillation I48.91 Cardiomyopathy I42.9 Chronic obstructive pulmonary disease J44.9 COPD type: unspecified COPD History of mitral valve replacement with bioprosthetic valve Z95.3 Hypertension I10
== END 2019-11-05 16:55 | disposition home or self-care (01) | DRG 853 ==
LOC: ED 11:13 → SUATTDRO 18:40 → 2W 18:40

== ENCOUNTER 2020-02-10 12:02 | Inpatient (IN) ==
[2020-02-10] MEDS ORDERED: SODIUM CHLORIDE 0.9% 1000ML 1,000 ML IV SCH (12:15)
[2020-02-10] MEDS ORDERED: SODIUM CHLORIDE 0.9% 500 ML IV SCH (12:15)
[2020-02-10 12:58] LABS: Basophils # (auto) 0.02 K/uL (0-0.2); Basophils % (auto) 0.1 %; Eosinophils # (auto) 0.01 K/uL (0-0.5); Eosinophils % (auto) 0.1 %; Hematocrit (blood only) 50.7 % (42-52); Hemoglobin 16.7 g/dL (14.0-18.0); Immature Granulocytes # (auto) 0.04 K/uL (0.00-0.02); Immature Granulocytes % (auto) 0.2 %; Lymphocytes # (auto) 0.72 K/uL (1.2-3.4); Lymphocytes % (auto) 3.9 %; Mean Corpuscular Hemoglobin 31.4 pg (25-34); Mean Corpuscular Hgb Conc 32.9 g/dL (32-36); Mean Corpuscular Volume 95.3 fL (80-100); Mean Platelet Volume 12.4 fL (7.4-10.4); Monocytes # (auto) 1.89 K/uL (0.11-0.59); Monocytes % (auto) 10.3 %; Neutrophils # (auto) 15.72 K/uL (1.4-6.5); Neutrophils % (auto) 85.4 %; Platelet Count 191 K/uL (130-400); RDW Coefficient of Variation 14.5 % (11.5-14.5); RDW Standard Deviation 50.5 fL (36.4-46.3); Red Blood Count 5.32 M/uL (4.7-6.1)
--- NOTE | 2020-02-10 13:00 | XRay Report ---
XR chest 1V portable HISTORY: 79 years-old Male weakness acute weakness COMPARISON: Chest radiograph 11/04/2019 TECHNIQUE: Portable AP view the chest FINDINGS: Cardiac silhouette is mildly enlarged. Cardiac valvular prosthesis. No pneumothorax, pleural effusion or overt pulmonary edema. Mild chronic lung of the lateral right costophrenic angle Mild interstitia l coarsening of the right lung base is unchanged. Degenerative changes of the shoulders and spine. IMPRESSION: No acute process. ACT 112: Negative or not required by law. The above report was generated using voice recognition software. It may contain grammatical, syntax o r spelling errors. Electronically signed by: Grzegorz Garrett M.D. 02/10/2020 12:59 PM
[2020-02-10 13:05] LABS: Appearance Urine Cloudy (Clear); Bacteria Urine Automated Negative (Negative); Blood Urine Negative (Negative); Color Urine Dark Yellow; Glucose Urine UA Negative (Negative); Ketones Urine Trace (Negative); Leukocyte Esterase Urine Negative (Negative); Nitrite Urine Negative (Negative); Protein Urine 1+ (Negative); Urobilinogen Urine Negative (Negative); WBC Urine Automated 0 /hpf (0-5)
[2020-02-10 13:09] LABS: Bilirubin Urine Negative (Negative); Ictotest Urine Negative (Negative)
[2020-02-10 13:15] LABS: BUN Creatinine Ratio 19.5 (10-20); Calcium 8.8 mg/dl (8.5-10.1); Creatinine Clr Calc Pharmacy 24.7 ml/min; Est GFR (African American) 26.5; Est GFR (Non-African American) 22.9; Magnesium 2.1 mg/dl (1.8-2.4); Potassium 3.8 mmol/L (3.5-5.1)
[2020-02-10 13:30] LABS: Albumin Globulin Ratio 0.6 (0.9-2); Bilirubin,Total 2.9 mg/dl (0.2-1); Globulin 4.8 gm/dl (2.5-4.0); Thyroid Stimulating Hormone 2.34 uIu/ml (0.300-4.500); Total Protein 7.8 gm/dl (6.4-8.2); Troponin I 0.068 ng/ml (0-0.045)
[2020-02-10] MEDS ORDERED: SODIUM CHLORIDE 0.9% 500 ML IV ONE (14:00)
[2020-02-10] MEDS ORDERED: DAPTOmycin 450 MG in SYRINGE 0 ML IV ONE (14:01)
[2020-02-10] MEDS ORDERED: PIPERACILLIN/TAZOBACTAM 4.5 GM/120 ML BAG IV ONE (14:01)
[2020-02-10] MEDS ORDERED: PIPERACILL/TAZOBAC CONSULT ACTIVE PRN ×2 (14:01→20:05)
[2020-02-10] MEDS ORDERED: SODIUM CHLORIDE 0.9% 1000ML 1,000 ML IV ONE (14:43)
--- NOTE | 2020-02-10 14:47 | CT Scan Report ---
CT head/brain wo con CLINICAL HISTORY: 79 years-old Male with AMS, on anticoagulation. Acutely altered mental status TECHNIQUE: Multiple axial CT images of the head were obtained without contrast. A dose lowering tech nique was utilized adhering to the principles of ALARA. CT DOSE: 729.78 mGycm COMPARISON: Head CT 11/04/2019 FINDINGS: No acute intracranial hemorrhage, midline shift, intracranial mass, hydrocephalus, territorial ischem ia or abnormal extra-axial collection. Mild age-related involutional changes. Calcifications of the f iron cerebri. The calvarium is intact. Trace left mastoid effusion. The right mastoid air cells are clear. Soft ti ssues and orbits are unremarkable. IMPRESSION: No acute intracranial abnormality. ACT 112: Negative or not required by law. The above report was generated using voice recognition software. It may contain grammatical, syntax o r spelling errors. Electronically signed by: Grzegorz Garrett M.D. 02/10/2020 2:46 PM
--- NOTE | 2020-02-10 14:51 | Emergency Department Note ---
Impression & Plan Sepsis, Acute renal failure, Acute dehydration, Elevated troponin, Elevated LFTs, Atrial fibrillation with rapid ventricular response ED Provider Note INFORMANT: Patient ED PROVIDER(S): Aaron Jerry MD CHIEF COMPLAINT: Shortness of breath/AMS PLAN: Disposition: Admitted Condition: Guarded MEDICAL DECISION MAKING: Patient presented because of AMS and shortness of breath. He was in a rapid atrial fibrillation and was requiring supplemental oxygen. Blood work was obtained. The patient was started gently on normal saline hydration due to his history of cardiomyopathy. Chest x-ray performed and did not reveal any acute findings. ECG showed a rapid atrial fibrillation with T wave changes. The [facility] ient's blood work revealed a significant leukocytosis of 18,000. He had acute renal failure on chemistry panel. He was dehydrated. His troponin was mildly elevated. Catheter urinalysis specimen was obtained and showed hemoconcentration but no clear signs of infection. LFTs were mildly elevated. The patient was sent for head CT imaging as well as CT scan of the abdomen and pelvis. Broad-spectrum antibiotics were given. He had additional fluids ordered due to his elevated lactate. His blood pressure was borderline low. His fluids were carefully administered due to his history of the cardiomyopathy. Covid PCR negative. The patient had a consultation placed with Dr. Tong of internal medicine. The case was discussed and diagnostics were reviewed. The patient was evaluated in the ER and admitted for further management. Triage Nursing notes reviewed and agree them. Vital Signs: reviewed and remarkable for tachycardia and hypotension Differential diagnosis: Infection, hypoglycemia, electrolyte abnormalities, overdose, toxicologic, cardiac sources, intracerebral event, neurologic, trauma, as well as other pathologies. Diagnostics interpreted by me: ECG: Twelve-lead ECG reveals a A. fib with RVR at 113 bpm. There is a nonspecific intraventricular block present. PVCs present. Inferior and anterior lateral T wave inversions present. No ST elevation. Cardiac Monitoring: Cardiac monitoring ordered by me: The patient was placed on continuous cardiac monitoring and observed. It revealed a atrial fibrillation at 111 beats per minute. Imaging studies: Chest x-ray. Findings: A chest x-ray was performed and revealed no pneumothorax, effusion, infiltrate, pulmonary edema, free air under the diaphragm, or wide mediastinum. Head CT: A noncontrast CT scan of the head was performed and was negative for tumor, fracture, intracranial hemorrhage, or other acute pathology. CT scan of the abdomen pelvis was performed. Results pending. I refer to the EMR for further details. [facility] HPI: The patient is a 79 year old male who presents to the Emergency Room with complaints of shortness of breath. EMS also noted confusion and weakness. This started few days and is worsening per EMS. The patient also notes the following associated symptoms, difficulty urinating and generalized abdominal pain. The patient has found no relieving factors. Current pain is rated as 2/10. Patient denies any Covid exposure. Pt denies LOC, headache, fevers, chills, diaphoresis, visual changes, neck pain, chest pain, breathing difficulties, nausea, vomiting, back pain, melena, hematochezia, numbness, lymphadenopathy, rash, or other complaints. ROS: See above HPI for pertinent positives & negatives. A total of 10 systems reviewed and were otherwise negative. PAST MEDICAL HISTORY:See Below, cardiomyopathy, atrial fibrillation, anticoagulation PAST SURGICAL HISTORY:See Below FAMILY HISTORY:See Below SOCIAL HISTORY:See Below, HOME MEDICATIONS:See Below ALLERGIES:See Below VITALS:See Below PHYSICAL EXAMINATION: GENERAL: Awake, tired-appearing, in no distress HENT: Normocephalic, atraumatic. Oropharynx unremarkable. EYES: Normal conjunctiva. Sclera non-icteric. NECK: Inspection normal. Non-tender. Supple. No nuchal rigidity. FROM. No masses. RESPIRATORY: Clear to auscultation. No wheezes. No rales. Normal respiratory effort. CARDIAC: Tachycardic rate. No irregular rmal rhythm. No murmurs. No rubs. Extremities warm and well perfused. Pulses equal. No JVD. GI: Soft, mildly-distended. No mild diffuse tenderness to palpation. No rebound or guarding. No masses. RECTAL: Deferred. MUSCULOSKELETAL: Atraumatic. Chest examination reveals no tenderness. The back is symmetrical on inspection without obvious abnormality. There is no CVA tenderness to palpation. No joint edema. LOWER EXTREMITIES: Calves are equal size bilaterally and non-tender. No edema. No discoloration. NEURO: Mildly confused sensorium. No focal sensory or motor deficits noted. SKIN: No rash or jaundice noted. ED COURSE: Critical Care: I have personally spent greater than 45 minutes of critical care time in the direct management of this patient. This includes bedside care, interpretation of diagnostic studies, and testing, discussion with consultants, patient, and other required patient management activities. These minutes are in excess of all separately billable procedures. Aaron Jerry MD Past Med/Surg History Medical History (Updated 02/10/20 @ 14:45 by Aaron Jerry MD) Atrial fibrillation Cancer MOHS ON NOSE (SKIN CANCER) Chronic obstructive pulmonary disease GERD (gastroesophageal reflux disease) History of Mohs micrographic surgery for skin cancer Hyperlipidemia Hypertension Surgical History Fistula REPAIRED History of cardiac cath History of cardiac radiofrequency ablation 5-6 YEARS AGO ([facility] BY DR. YIN) History of colonoscopy History of heart valve replacement MITRAL VALVE REPLACED 3 YEARS AGO ([facility]) History of tonsillectomy History of tooth extraction Status post anal fissurectomy Status post Mohs surgery left cheek and left arm (squamous cell) Family History Father Family hx colonic polyps Mother Heart disease Other Hypertension Social History Smoking Status: Former smoker Cigarettes Per Day: 40; Second Hand Exposure: No; Hx Alcohol Use: Yes Alcohol type: beer Hx Substance Use: No Preferred Language: Mohawk Communication Ability: Effective Visual Impairment: Limited Hearing Ability: Normal Can Operator Required: No Beliefs That Will Affect Care: None marital status: Current Living Situation: Spouse current occupational status: retired Feels Safe at Home: Yes Childhood Exposure to Second-Hand Smoke: Yes caffeine: Yes Dental Care, Regularly: Yes Physical Activity Frequency: 1-2 Times per Week Physical Activity Frequency Comment: regular Seatbelt Use: always Sunscreen Use: Yes Assistive Devices: None Allergies Allergies Allergy/AdvReac Type Severity Reaction Status Date / Time No Known Allergies Allergy Verified 02/10/20 15:03 Home Meds Home Medications Medication Instructions Recorded Confirmed omeprazole 20 mg PO DAILY 11/04/19 02/10/20 Previous Rx's Medication Instructions Recorded nebulizer accessories #1 ea 03/26/19 nebulizers #1 ea 03/28/19 lisinopril 30 mg tablet 30 mg PO QAM #90 tab 06/13/19 apixaban 5 mg tablet 5 mg PO BID #180 tab 08/19/19 budesonide-formoterol HFA 160 2 puff INHALATION BID #10.2 gm 08/28/19 mcg-4.5 mcg/actuation aerosol inhaler tiotropium bromide 2.5 2 puffs INH DAILY #4 gm 08/28/19 mcg/actuation mist for inhalation furosemide 40 mg tablet 40 mg PO DAILY #100 tab 10/03/19 ipratropium 20 mcg-albuterol 100 1 puff INHALATION TID PRN #4 gm 12/05/19 mcg/actuation mist for inhalation montelukast 10 mg tablet 10 mg PO DAILY #90 tab 12/23/19 metoprolol succinate 100 mg 100 mg PO QAM #90 tab 01/09/20 tablet,extended release 24 hr atorvastatin 20 mg tablet 20 mg PO HS #90 tab 01/20/20 Results & Data (ED) Vital Signs Vital Signs - 24 hr 02/10/20 11:50 02/10/20 12:08 02/10/20 12:11 Temperature 36.5 C Temperature Source Oral Pulse Rate 127 H 127 H Pulse Rate from SpO2 Sensor 102 H Respiratory Rate 38 H 30 H Blood Pressure Blood Pressure Mean Pulse Oximetry 83 L 90 Oxygen Delivery Method Room Air Room Air Nasal Cannula Oxygen Flow Rate 5 Sepsis Recent Fever Within 48 Hours No Sepsis New/Unexplained Change in Mental Status Yes Sepsis Action Taken by Nursing Physician Notified 02/10/20 12:20 02/10/20 12:27 02/10/20 12:30 Temperature Temperature Source Pulse Rate 115 H 115 H 122 H Pulse Rate from SpO2 Sensor 91 H 112 H 98 H Respiratory Rate 35 H 36 H 34 H Blood Pressure 106/88 108/81 Blood Pressure Mean 91 91 Pulse Oximetry 98 98 98 Oxygen Delivery Method Nasal Cannula Nasal Cannula Nasal Cannula Oxygen Flow Rate 5 5 5 Sepsis Recent Fever Within 48 Hours Sepsis New/Unexplained Change in Mental Status Sepsis Action Taken by Nursing 02/10/20 12:31 02/10/20 12:40 02/10/20 12:45 Temperature Temperature Source Pulse Rate 122 H 108 H 127 H Pulse Rate from SpO2 Sensor 85 110 H 118 H Respiratory Rate 36 H 30 H 26 H Blood Pressure 98/58 L Blood Pressure Mean 62 Pulse Oximetry 98 96 87 L Oxygen Delivery Method Nasal Cannula Nasal Cannula Nasal Cannula Oxygen Flow Rate 5 5 5 Sepsis Recent Fever Within 48 Hours Sepsis New/Unexplained Change in Mental Status Sepsis Action Taken by Nursing 02/10/20 12:50 02/10/20 13:00 02/10/20 13:01 Temperature Temperature Source Pulse Rate 111 H Pulse Rate from SpO2 Sensor 113 H 115 H 108 H Respiratory Rate 35 H 37 H 36 H Blood Pressure 110/80 Blood Pressure Mean 96 Pulse Oximetry 97 88 L 97 Oxygen Delivery Method Nasal Cannula Nasal Cannula Nasal Cannula Oxygen Flow Rate 5 5 5 Sepsis Recent Fever Within 48 Hours Sepsis New/Unexplained Change in Mental Status Sepsis Action Taken by Nursing 02/10/20 13:10 02/10/20 13:20 02/10/20 13:30 Temperature Temperature Source Pulse Rate Pulse Rate from SpO2 Sensor 112 H 119 H 112 H Respiratory Rate 34 H 33 H 33 H Blood Pressure Blood Pressure Mean Pulse Oximetry 97 97 98 Oxygen Delivery Method Nasal Cannula Nasal Cannula Nasal Cannula Oxygen Flow Rate 5 5 5 Sepsis Recent Fever Within 48 Hours Sepsis New/Unexplained Change in Mental Status Sepsis Action Taken by Nursing 02/10/20 13:40 02/10/20 13:46 02/10/20 13:47 Temperature Temperature Source Pulse Rate Pulse Rate from SpO2 Sensor 105 H 115 H 110 H Respiratory Rate 33 H 32 H 36 H Blood Pressure 78/54 L 90/58 L Blood Pressure Mean 59 61 Pulse Oximetry 97 98 95 Oxygen Delivery Method Nasal Cannula Nasal Cannula Nasal Cannula Oxygen Flow Rate 5 5 5 Sepsis Recent Fever Within 48 Hours Sepsis New/Unexplained Change in Mental Status Sepsis Action Taken by Nursing 02/10/20 13:50 02/10/20 14:00 02/10/20 14:01 Temperature Temperature Source Pulse Rate Pulse Rate from SpO2 Sensor 104 H 105 H 114 H Respiratory Rate 37 H 31 H 28 H Blood Pressure 89/35 L Blood Pressure Mean 58 Pulse Oximetry 95 96 97 Oxygen Delivery Method Nasal Cannula Nasal Cannula Nasal Cannula Oxygen Flow Rate 5 5 5 Sepsis Recent Fever Within 48 Hours Sepsis New/Unexplained Change in Mental Status Sepsis Action Taken by Nursing 02/10/20 14:10 02/10/20 14:16 02/10/20 14:17 Temperature Temperature Source Pulse Rate 103 H Pulse Rate from SpO2 Sensor 107 H 105 H 106 H Respiratory Rate 27 H 28 H 20 Blood Pressure 76/61 L 87/61 L Blood Pressure Mean 71 68 Pulse Oximetry 98 98 97 Oxygen Delivery Method Nasal Cannula Nasal Cannula Nasal Cannula Oxygen Flow Rate 5 5 5 Sepsis Recent Fever Within 48 Hours Sepsis New/Unexplained Change in Mental Status Sepsis Action Taken by Nursing 02/10/20 14:20 02/10/20 14:26 02/10/20 14:46 Temperature Temperature Source Pulse Rate 105 H 103 H 112 H Pulse Rate from SpO2 Sensor 108 H 100 H Respiratory Rate 32 H 34 H 35 H Blood Pressure 102/55 L Blood Pressure Mean 70 Pulse Oximetry 98 98 Oxygen Delivery Method Nasal Cannula Nasal Cannula Nasal Cannula Oxygen Flow Rate 5 5 5 Sepsis Recent Fever Within 48 Hours Sepsis New/Unexplained Change in Mental Status Sepsis Action Taken by Nursing 02/10/20 14:48 02/10/20 14:50 02/10/20 15:00 Temperature Temperature Source Pulse Rate 105 H 94 H 102 H Pulse Rate from SpO2 Sensor 61 107 H 106 H Respiratory Rate 29 H 29 H 27 H Blood Pressure 111/56 L Blood Pressure Mean 87 Pulse Oximetry 87 L 99 93 Oxygen Delivery Method Nasal Cannula Nasal Cannula Nasal Cannula Oxygen Flow Rate 5 5 5 Sepsis Recent Fever Within 48 Hours Sepsis New/Unexplained Change in Mental Status Sepsis Action Taken by Nursing 02/10/20 15:01 Temperature Temperature Source Pulse Rate 109 H Pulse Rate from SpO2 Sensor 111 H Respiratory Rate 35 H Blood Pressure 113/78 Blood Pressure Mean 91 Pulse Oximetry 99 Oxygen Delivery Method Nasal Cannula Oxygen Flow Rate 5 Sepsis Recent Fever Within 48 Hours Sepsis New/Unexplained Change in Mental Status Sepsis Action Taken by Nursing Laboratory Data Result diagrams: 02/10/20 12:23 02/10/20 12:23 Lab Results 02/10/20 02/10/20 02/10/20 Range/Units 12:23 12:23 12:38 WBC 18.40 H (4.8-10.8) K/uL RBC 5.32 (4.7-6.1) M/uL Hgb 16.7 (14.0-18.0) g/dL Hct 50.7 (42-52) % MCV 95.3 (80-100) fL MCH 31.4 (25-34) pg MCHC 32.9 (32-36) g/dL RDW Std Deviation 50.5 H (36.4-46.3) fL RDW Coeff of Kamron 14.5 (11.5-14.5) % Plt Count 191 (130-400) K/uL MPV 12.4 H (7.4-10.4) fL Immature Gran % (Auto) 0.2 % Neut % (Auto) 85.4 % Lymph % (Auto) 3.9 % Polk % (Auto) 10.3 % Eos % (Auto) 0.1 % Baso % (Auto) 0.1 % Neut # (Auto) 15.72 H (1.4-6.5) K/uL Lymph # (Auto) 0.72 L (1.2-3.4) K/uL Polk # (Auto) 1.89 H (0.11-0.59) K/uL Eos # (Auto) 0.01 (0-0.5) K/uL Baso # (Auto) 0.02 (0-0.2) K/uL Immature Gran # (Auto) 0.04 H (0.00-0.02) K/uL Sodium 134 L (136-145) mmol/L Potassium 3.8 (3.5-5.1) mmol/L Chloride 96 L (98-107) mmol/L Carbon Dioxide 30 (21-32) mmol/L Anion Gap 8.0 (3-11) BUN 51 H (7-18) mg/dl Creatinine 2.59 H (0.6-1.4) mg/dl Est Cr Clr Drug Dosing 24.7 ml/min Est GFR ( Amer) 26.5 Est GFR (Non-Af Amer) 22.9 BUN/Creatinine Ratio 19.5 (10-20) Glucose 103 H (70-99) mg/dl Lactate (0.4-2.0) mmol/L Calcium 8.8 (8.5-10.1) mg/dl Magnesium 2.1 (1.8-2.4) mg/dl Total Bilirubin 2.9 H (0.2-1) mg/dl AST 63 H (15-37) U/L ALT 62 (12-78) U/L Alkaline Phosphatase 115 (45-117) U/L Troponin I 0.068 H* (0-0.045) ng/ml Total Protein 7.8 (6.4-8.2) gm/dl Albumin 3.0 L (3.4-5.0) gm/dl Globulin 4.8 H (2.5-4.0) gm/dl Albumin/Globulin Ratio 0.6 L (0.9-2) TSH 2.340 (0.300-4.500) uIu/ml Urine Color Dark Yellow Urine Appearance Cloudy A (Clear) Urine pH 5.0 (4.5-7.5) Ur Specific Fairchild 1.020 (1.000-1.030) Urine Protein 1+ H (Negative) Urine Glucose (UA) Negative (Negative) Urine Ketones Trace H (Negative) Urine Blood Negative (Negative) Urine Nitrite Negative (Negative) Urine Bilirubin Negative (Negative) Urine Urobilinogen Negative (Negative) Ur Leukocyte Esterase Negative (Negative) Urine WBC (Auto) 0 (0-5) /hpf Urine RBC (Auto) 5-10 H (0-4) /hpf U Hyaline Cast (Auto) 10-30 H (0-5) /lpf U Epithel Cells (Auto) 5-10 H (0-5) /lpf Urine Bacteria (Auto) Negative (Negative) COVID-19 Eval Order COVID-19 PCR (Negative) 02/10/20 02/10/20 02/10/20 Range/Units 12:40 12:40 13:29 WBC (4.8-10.8) K/uL RBC (4.7-6.1) M/uL Hgb (14.0-18.0) g/dL Hct (42-52) % MCV (80-100) fL MCH (25-34) pg MCHC (32-36) g/dL RDW Std Deviation (36.4-46.3) fL RDW Coeff of Kamron (11.5-14.5) % Plt Count (130-400) K/uL MPV (7.4-10.4) fL Immature Gran % (Auto) % Neut % (Auto) % Lymph % (Auto) % Polk % (Auto) % Eos % (Auto) % Baso % (Auto) % Neut # (Auto) (1.4-6.5) K/uL Lymph # (Auto) (1.2-3.4) K/uL Polk # (Auto) (0.11-0.59) K/uL Eos # (Auto) (0-0.5) K/uL Baso # (Auto) (0-0.2) K/uL Immature Gran # (Auto) (0.00-0.02) K/uL Sodium (136-145) mmol/L Potassium (3.5-5.1) mmol/L Chloride (98-107) mmol/L Carbon Dioxide (21-32) mmol/L Anion Gap (3-11) BUN (7-18) mg/dl Creatinine (0.6-1.4) mg/dl Est Cr Clr Drug Dosing ml/min Est GFR ( Amer) Est GFR (Non-Af Amer) BUN/Creatinine Ratio (10-20) Glucose (70-99) mg/dl Lactate 3.1 H* (0.4-2.0) mmol/L Calcium (8.5-10.1) mg/dl Magnesium (1.8-2.4) mg/dl Total Bilirubin (0.2-1) mg/dl AST (15-37) U/L ALT (12-78) U/L Alkaline Phosphatase (45-117) U/L Troponin I (0-0.045) ng/ml Total Protein (6.4-8.2) gm/dl Albumin (3.4-5.0) gm/dl Globulin (2.5-4.0) gm/dl Albumin/Globulin Ratio (0.9-2) TSH (0.300-4.500) uIu/ml Urine Color Urine Appearance (Clear) Urine pH (4.5-7.5) Ur Specific [place]child (1.000-1.030) Urine Protein (Negative) Urine Glucose (UA) (Negative) Urine Ketones (Negative) Urine Blood (Negative) Urine Nitrite (Negative) Urine Bilirubin (Negative) Urine Urobilinogen (Negative) Ur Leukocyte Esterase (Negative) Urine WBC (Auto) (0-5) /hpf Urine RBC (Auto) (0-4) /hpf U Hyaline Cast (Auto) (0-5) /lpf U Epithel Cells (Auto) (0-5) /lpf Urine Bacteria (Auto) (Negative) COVID-19 Eval Order Covid19 Done at [facility] COVID-19 PCR NEGATIVE (Negative) Administered Medications Sodium Chloride (Nss 1000ml) 1,000 mls @ 125 mls/hr IV .Q8H FABIANA Stop: 02/10/20 20:14 Last Admin: 02/10/20 14:00 Dose: 999 mls/hr Documented by: [id number] Sodium Chloride (Nss 1000ml) 1,000 mls @ 999 mls/hr IV .Q1H1M ONE Stop: 02/10/20 15:43 Last Admin: 02/10/20 14:56 Dose: 999 mls/hr Documented by: [id number] Miscellaneous Information (Piperacill/Tazobac Consult Active) 1 ea N/A UD PRN PRN Reason: Consult Stop: 03/11/20 14:00 Last Admin: 02/10/20 14:56 Dose: 1 ea Documented by: [id number] Miscellaneous Information (Daptomycin Consult Active) 1 ea N/A UD PRN PRN Reason: Consult Stop: 03/11/20 14:00 Last Admin: 02/10/20 14:56 Dose: 1 ea Documented by: [id number] Discontinued Medications Piperacillin Sod/Tazobactam Sod (Zosyn) 4.5 gm in 120 mls @ 240 mls/hr IV NOW ONE Stop: 02/10/20 14:30 Last Admin: 02/10/20 14:52 Dose: 240 mls/hr Documented by: [id number] Daptomycin 450 mg/ Syringe 9 mls @ 4.5 mls/min IV NOW ONE; Protocol Stop: 02/10/20 14:02 Last Admin: 02/10/20 14:52 Dose: 4.5 mls/min Documented by: [id number] Discharge Plan Visit Data Chief Complaint: Shortness of Breath/Dyspnea Stated Complaint: SOB/Weak/Poor oral intake ED Provider: Aaron Jerry Discharge Problem: Sepsis, Acute renal failure, Acute dehydration, Elevated troponin, Elevated LFTs, Atrial fibrillation with rapid ventricular response Forms Stand Alone Forms: [facility] Prescriptions Prescriptions: No Action (DME) nebulizer accessories kit See Rx Instructions .ROUTE .MEDSUPPLY Qty: 1 RF: 0 (DME) nebulizers misc See Rx Instructions [id number] .MEDSUPPLY Qty: 1 RF: 0 lisinopril 30 mg tablet 30 mg PO QAM Qty: 90 RF: 3 Eliquis 5 mg tablet 5 mg PO BID Qty: 180 RF: 3 furosemide [Lasix] 40 mg tablet 40 mg PO DAILY Qty: 100 RF: 1 Combivent Respimat 20-100 mcg/actuation mist 1 puff INHALATION TID PRN (Reason: shortness of breath or wheezing) Qty: 4 RF: 5 montelukast 10 mg tablet 10 mg PO DAILY Qty: 90 RF: 3 metoprolol succinate 100 mg tablet extended release 24 hr 100 mg PO QAM Qty: 90 RF: 3 atorvastatin 20 mg tablet 20 mg PO HS Qty: 90 RF: 3 Symbicort 160-4.5 mcg/actuation HFA aerosol inhaler 2 puff INHALATION BID Qty: 10.2 RF: 5 Spiriva Respimat 2.5 mcg/actuation mist 2 puffs INH DAILY Qty: 4 RF: 5 omeprazole 20 mg capsule,delayed release(DR/EC) 20 mg PO DAILY RF: 0
--- NOTE | 2020-02-10 15:12 | Electrocardiogram Report ---
Test Reason : Blood Pressure : / mmHG Vent. Rate : 113 BPM Atrial Rate : 117 BPM P-R Int : 000 ms QRS Dur : 128 ms QT Int : 350 ms P-R-T Axes : 000 088 -77 degrees QTc Int : 480 ms Poor data quality, interpretation may be adversely affected Atrial fibrillation with rapid ventricular response with premature ventricular or aberrantly conducte d complexes Non-specific intra-ventricular conduction block T wave abnormality, consider inferior ischemia T wave abnormality, consider anterolateral ischemia Abnormal ECG When compared with ECG of 04-NOV-2019 11:28, T wave inversion now evident in Lateral leads Confirmed by Maurisio Jorgensen ([id number]) on 02/10/2020 3:12:32 PM Referred By: Confirmed By:Dean Jorgensen
--- NOTE | 2020-02-10 15:26 | CT Scan Report ---
CT OF THE ABDOMEN AND PELVIS WITHOUT CONTRAST CLINICAL HISTORY: elevated LFTs, AMS, elevated WBC, generalized pain COMPARISON STUDY: PET/CT October 18, 2017. CT of the abdomen and pelvis November 04, 2019. TECHNIQUE: Axial images of the abdomen and pelvis were obtained without IV contrast. Images were revi ewed in the axial, sagittal, and coronal planes. Automated exposure control was utilized for the angie dy. A dose lowering technique was utilized adhering to the principles of ALARA. FINDINGS: Moderate cardiomegaly is noted. Emphysema within the lower lungs is noted. Mild subpleural opacities are noted. No pneumatosis, free air or portal venous gas is present. The stomach is mildly distended. Evaluation of the abdomen and pelvis is suboptimal on this unenhanced examination. The gal lbladder is distended. There are small gallstones within the gallbladder. Bladder wall thickening is noted. There is an apparent outpouching of the left lateral wall of the gallbladder on axial image 10 8 of 451. Note is made of a probable subcapsular fluid collection overlying the left hepatic lobe sagar t measures up to 1.4 cm in thickness. There is moderate pericholecystic and perihepatic infiltration. The spleen, adrenal glands, pancreas and kidneys are unremarkable with exception of a 1.5 cm left re nal lesion which are shown to reflect a cyst on prior contrast enhanced exam. There is no biliary or pancreatic ductal dilatation. There is no evidence for a bowel obstruction. Colonic diverticulosis is noted without evidence for acute diverticulitis. Mi balloon is present within the bladder. Prosta te is moderately enlarged. There is no lymphadenopathy. No suspicious osseous lesions are present. IMPRESSION: 1. Findings suggestive of perforated cholecystitis. Outpouching of the left lateral wall of the gallb ladder with adjacent subcapsular fluid collection overlying the lateral segment of the left hepatic l obe. This favors a subcapsular biloma which could be infected. Surgical consultation is recommended. 2. Mild distention of the stomach. No bowel obstruction. 3. Colonic diverticulosis without evidence for acute diverticulitis. ACT 112: Negative or not required by law. Electronically signed by: Osbaldo Milner M.D. 02/10/2020 3:25 PM
--- NOTE | 2020-02-10 16:24 | History & Physical Report ---
Date of Service February 10, 2020 Assessment & Plan (1) Perforated gallbladder: CT a/p on 02/09 shows perforated gallbladder. - Stat surgery consult - discussed with Dr. Buchanan who will see him right away. - Continue Zosyn from the ED - Follow cultures (2) Sepsis: Appears to have sepsis with tachycardia, leukocytosis, and hypotension. - As above (3) Acute renal failure: Baseline Cr ~1.1 - 1.2. - Cr now up to 2.6; likely pre-renal from low PO intake. However, post-renal also possible given the urinary retention. - Continue IV fluids - Hold lisinopril, Lasix - Maintain Mi for now given surgical need (4) Atrial fibrillation with rapid ventricular response: EKG in the ED shows afib. Rate was up to 130 initially in the ED. - Down to 100s after IV fluids - Hold apixaban for surgery - Holding long-acting beta-dillan for hypotension, though will likely need to restart it at some lower dose to prevent RVR. - Metoprolol PRN for HR > 120 (5) Elevated troponin: No chest pain. TWI inversions in the lateral leads on admission. - Trend troponins and EKGs (6) Chronic systolic (congestive) heart failure: Echo in 03/2019 indicated EF of 45%. - Presently appears hypovolemic on exam and labs. - Holding Lasix for YANIRA - IV fluids - Monitor volume status (7) Hypertension: BP was low in the ED (90/50), then up to 113/80 after IV fluids. - Holding all BP meds for now (8) Pre-diabetes: A1c was 6.2% in 08/2019. Not on home meds per med rec. - Sliding scale insulin (9) Chronic obstructive pulmonary disease: No wheezing on exam today. Due to his shortness of breath, I did order procalcitonin and BNP, though given other source of sepsis, less concerned at present. - Continue home inhalers - DuoNebs PRN (10) History of mitral valve replacement with bioprosthetic valve: Done ~2014 at [facility]. According to UpToDate and ACCP guidelines, aspirin 81 mg or DOAC are ok given it is a bioprosthetic valve. He is on anticoagulation due to his concurrent afib. - Continue anticoagulation as able (11) DVT prophylaxis: SCDs - Holding heparin given likely need for surgery History of Present Illness Primary Care Provider: Katelynn Patel MD 79yo M w/ hx of afib, systolic CHF, HTN who presents with sepsis-like picture. The patient reports that he has just felt fatigued for several days. He reports a general loss of appetite and decreased oral intake due to his fatigue. He does report some increased shortness of breath and a slight, dry cough. Otherwise, he has been in his normal state of health. He denies any fevers/chills/sweats. He denies any chest pain or abdominal pain or any urinary symptoms at all. He denies any nausea, vomiting, diarrhea, or GI symptoms. To the ED provider, he did report some suprapubic pressure. He received a Mi catheter and reportedly had substantial urine output with improvement of his discomfort. Allergies Allergy/AdvReac Type Severity Reaction Status Date / Time No Known Allergies Allergy Verified 02/10/20 15:03 Home Medications Home Medications Medication Instructions Recorded Confirmed Type nebulizer accessories #1 ea 03/26/19 11/06/19 Rx nebulizers #1 ea 03/28/19 11/06/19 Rx lisinopril 30 mg tablet 30 mg PO QAM #90 tab 06/13/19 02/10/20 Rx apixaban 5 mg tablet 5 mg PO BID #180 tab 08/19/19 02/10/20 Rx budesonide-formoterol HFA 160 2 puff INHALATION BID #10.2 gm 08/28/19 02/10/20 Rx mcg-4.5 mcg/actuation aerosol inhaler tiotropium bromide 2.5 2 puffs INH DAILY #4 gm 08/28/19 02/10/20 Rx mcg/actuation mist for inhalation furosemide 40 mg tablet 40 mg PO DAILY #100 tab 10/03/19 02/10/20 Rx omeprazole 20 mg PO DAILY 11/04/19 02/10/20 History ipratropium 20 mcg-albuterol 100 1 puff INHALATION TID PRN #4 gm 12/05/19 02/10/20 Rx mcg/actuation mist for inhalation montelukast 10 mg tablet 10 mg PO DAILY #90 tab 12/23/19 02/10/20 Rx metoprolol succinate 100 mg 100 mg PO QAM #90 tab 01/09/20 02/10/20 Rx tablet,extended release 24 hr atorvastatin 20 mg tablet 20 mg PO HS #90 tab 01/20/20 02/10/20 Rx Past Med/Surg History Medical History (Updated 02/10/20 @ 16:28 by Eligio Tong MD) Atrial fibrillation Cancer MOHS ON NOSE (SKIN CANCER) Chronic obstructive pulmonary disease GERD (gastroesophageal reflux disease) History of Mohs micrographic surgery for skin cancer Hyperlipidemia Hypertension Surgical History Fistula REPAIRED History of cardiac cath History of cardiac radiofrequency ablation 5-6 YEARS AGO ([facility] BY DR. YIN) History of colonoscopy History of heart valve replacement MITRAL VALVE REPLACED 3 YEARS AGO ([place]) History of tonsillectomy History of tooth extraction Status post anal fissurectomy Status post Mohs surgery left cheek and left arm (squamous cell) Family History Father Family hx colonic polyps Mother Heart disease Other Hypertension Social History Smoking Status: Former smoker Cigarettes Per Day: 40; Second Hand Exposure: No; Hx Alcohol Use: Yes Alcohol type: beer Hx Substance Use: No Preferred Language: Frisian Communication Ability: Effective Visual Impairment: Limited Hearing Ability: Normal Soup Mixer Required: No Beliefs That Will Affect Care: None marital status: Current Living Situation: Spouse current occupational status: retired Feels Safe at Home: Yes Childhood Exposure to Second-Hand Smoke: Yes caffeine: Yes Dental Care, Regularly: Yes Physical Activity Frequency: 1-2 Times per Week Physical Activity Frequency Comment: regular Seatbelt Use: always Sunscreen Use: Yes Assistive Devices: None Review of Systems Review of Systems: All systems reviewed & are unremarkable except as noted in HPI & below Physical Exam Constitutional: WD/WN, vitals as above Eyes: EOM intact bilaterally; no conjunctival abnormality ENMT: external ear and nose normal, oropharynx normal Neck: trachea midline, no thyromegaly normal visual inspection Respiratory: normal respiratory effort, lungs clear to auscultation no respiratory distress Cardiovascular: RRR, no murmur, no edema Gastrointestinal (Abdomen): Inspection/Auscultation: abdomen normal to inspection; abdomen not distended Musculoskeletal: no cyanosis or clubbing, extremities motor strength 5/5 Skin: no rashes, warm and dry Neurologic: moves all extremities and awake Psychiatric: Orientation: alert, oriented to person and cooperative Results & Data Results & Data ([facility]) Vital Signs (Past 12 Hours) Vital Signs Temp Pulse Resp BP Pulse Ox 02/10/20 15:01 109 H 35 H 113/78 99 02/10/20 15:00 102 H 27 H 93 02/10/20 14:50 94 H 29 H 99 02/10/20 14:48 105 H 29 H 111/56 L 87 L 02/10/20 14:46 112 H 35 H 02/10/20 14:26 103 H 34 H 102/55 L 98 02/10/20 14:20 105 H 32 H 98 02/10/20 14:17 103 H 20 87/61 L 97 02/10/20 14:16 28 H 76/61 L 98 02/10/20 14:10 27 H 98 02/10/20 14:01 28 H 89/35 L 97 02/10/20 14:00 31 H 96 02/10/20 13:50 37 H 95 02/10/20 13:47 36 H 90/58 L 95 02/10/20 13:46 32 H 78/54 L 98 02/10/20 13:40 33 H 97 02/10/20 13:30 33 H 98 02/10/20 13:20 33 H 97 02/10/20 13:10 34 H 97 02/10/20 13:01 36 H 97 02/10/20 13:00 37 H 110/80 88 L 02/10/20 12:50 111 H 35 H 97 02/10/20 12:45 127 H 26 H 98/58 L 87 L 02/10/20 12:40 108 H 30 H 96 02/10/20 12:31 122 H 36 H 98 02/10/20 12:30 122 H 34 H 108/81 98 02/10/20 12:27 115 H 36 H 106/88 98 02/10/20 12:20 115 H 35 H 98 02/10/20 12:11 127 H 30 H 90 02/10/20 11:50 36.5 C 127 H 38 H 83 L Code Status & VTE Plan VTE Prophylaxis Plan VTE Prophylaxis will be ordered: Yes PG Care Time/CCT Total # of Minutes Spent Total Time Spent with Patient: Total time spent is greater than 50% in coordination of care (as documented) at patient's floor/unit and/or counseling patient: Coding Level of Care Code 83221 Initial Inpt Care Lvl 3 Diagnoses Perforated gallbladder K82.2 Sepsis A41.9 Acute renal failure N17.9 Atrial fibrillation with rapid ventricular response I48.91 Elevated troponin R77.8 Chronic systolic (congestive) heart failure I50.22 Hypertension I10 Pre-diabetes R73.03 Chronic obstructive pulmonary disease J44.9 COPD type: unspecified COPD History of mitral valve replacement with bioprosthetic valve Z95.3 DVT prophylaxis Z29.9 (1) Chronic obstructive pulmonary disease COPD type: unspecified COPD Qualified Code(s): J44.9 - Chronic obstructive pulmonary disease, unspecified
--- NOTE | 2020-02-10 17:49 | Surgery Consultation ---
Date of Consultation February 10, [address] Eligio Tong hospitalist approximately 5:00 this evening with the patient that CT scan showed likely perforated gallbladder fluid around the liver the patient came in hypotensive tachycardic at approximately 11:00 this morning Talking with the patient he stated that he has been sick approximately 5 days has not had anything to eat or drink and complaining of pain in the belly talking with his by phone she stated that this all started with pain in the upper belly and to the right side approximately 5 days ago The patient is on Eliquis and took his dose about 9:00 this morning 5 mg and he takes it twice a day Patient has a history of atrial fibrillation never had any previous abdominal surgery and overall his health has been fairly good Assessment & Plan (1) Perforated gallbladder: Patient came in basically in septic from perforated gallbladder that probably happened a few days ago At this point given his clinical situation I recommended proceed with laparoscopy abdominal washout in the right upper quadrant drainage of that area possible cholecystostomy or cholecystectomy The risk and complication including bleeding because of the Eliquis was discussed with the patient and his and we will proceed accordingly History of Present Illness Allergies Allergy/AdvReac Type Severity Reaction Status Date / Time No Known Allergies Allergy Verified 02/10/20 15:03 Home Medications Home Medications Medication Instructions Recorded Confirmed Type nebulizer accessories #1 ea 03/26/19 11/06/19 Rx nebulizers #1 ea 03/28/19 11/06/19 Rx lisinopril 30 mg tablet 30 mg PO QAM #90 tab 06/13/19 02/10/20 Rx apixaban 5 mg tablet 5 mg PO BID #180 tab 08/19/19 02/10/20 Rx budesonide-formoterol HFA 160 2 puff INHALATION BID #10.2 gm 08/28/19 02/10/20 Rx mcg-4.5 mcg/actuation aerosol inhaler tiotropium bromide 2.5 2 puffs INH DAILY #4 gm 08/28/19 02/10/20 Rx mcg/actuation mist for inhalation furosemide 40 mg tablet 40 mg PO DAILY #100 tab 10/03/19 02/10/20 Rx omeprazole 20 mg PO DAILY 11/04/19 02/10/20 History ipratropium 20 mcg-albuterol 100 1 puff INHALATION TID PRN #4 gm 12/05/19 02/10/20 Rx mcg/actuation mist for inhalation montelukast 10 mg tablet 10 mg PO DAILY #90 tab 12/23/19 02/10/20 Rx metoprolol succinate 100 mg 100 mg PO QAM #90 tab 01/09/20 02/10/20 Rx tablet,extended release 24 hr atorvastatin 20 mg tablet 20 mg PO HS #90 tab 01/20/20 02/10/20 Rx Patient History Medical History (Updated 02/10/20 @ 17:46 by Gigi Buchanan MD) Atrial fibrillation Cancer MOHS ON NOSE (SKIN CANCER) Chronic obstructive pulmonary disease GERD (gastroesophageal reflux disease) History of Mohs micrographic surgery for skin cancer Hyperlipidemia Hypertension Surgical History Fistula REPAIRED History of cardiac cath History of cardiac radiofrequency ablation 5-6 YEARS AGO ([facility] BY DR[facility] YIN) History of colonoscopy History of heart valve replacement MITRAL VALVE REPLACED 3 YEARS AGO ([place]) History of tonsillectomy History of tooth extraction Status post anal fissurectomy Status post Mohs surgery left cheek and left arm (squamous cell) Family History Father Family hx colonic polyps Mother Heart disease Other Hypertension Social History Smoking Status: Former smoker Cigarettes Per Day: 40; Second Hand Exposure: No; Hx Alcohol Use: Yes Alcohol type: beer Hx Substance Use: No Preferred Language: Bhutanese Communication Ability: Effective Visual Impairment: Limited Hearing Ability: Normal Senior Specialist Required: No Beliefs That Will Affect Care: None marital status: Current Living Situation: Spouse current occupational status: retired Feels Safe at Home: Yes Childhood Exposure to Second-Hand Smoke: Yes caffeine: Yes Dental Care, Regularly: Yes Physical Activity Frequency: 1-2 Times per Week Physical Activity Frequency Comment: regular Seatbelt Use: always Sunscreen Use: Yes Assistive Devices: None Physical Exam Physical Exam: The patient is alert somewhat drowsy but responds appropriately obviously looking very sick The sclera is nonicteric Oropharyngeal area tongue dry mucosa No cervical lymphadenopathy Lungs clear to auscultation Heart rate 99-110 blood pressure noted in the high 90s The abdomen exquisite tender in the right upper quadrant with generalized guarding Patient has a Mi catheter in urine very concentrated but he is making some Extremities no pedal edema Results & Data ([facility]) Vital Signs (Past 12 Hours) Vital Signs Temp Pulse Resp BP Pulse Ox 02/10/20 16:50 94 H 20 100 02/10/20 16:45 91 H 21 98/53 L 100 02/10/20 16:40 99 H 26 H 100 02/10/20 16:31 94 H 26 H 97 02/10/20 16:30 107 H 31 H 99/77 L 100 02/10/20 16:20 99 H 30 H 98 02/10/20 16:15 82 33 H 122/52 L 93 02/10/20 16:10 86 26 H 96 02/10/20 16:01 93 H 30 H 100 02/10/20 16:00 93 H 29 H 74/49 L 100 02/10/20 15:50 107 H 29 H 100 02/10/20 15:45 92 H 23 87/75 L 100 02/10/20 15:40 94 H 29 H 100 02/10/20 15:31 98 H 20 99 02/10/20 15:30 92 H 27 H 106/55 L 100 02/10/20 15:20 97 H 30 H 02/10/20 15:15 98 H 31 H 93/58 L 100 02/10/20 15:10 106 H 29 H 100 02/10/20 15:02 107 H 19 89 L 02/10/20 15:01 109 H 35 H 113/78 99 02/10/20 15:00 102 H 27 H 93 02/10/20 14:50 94 H 29 H 99 02/10/20 14:48 105 H 29 H 111/56 L 87 L 02/10/20 14:46 112 H 35 H 02/10/20 14:26 103 H 34 H 102/55 L 98 02/10/20 14:20 105 H 32 H 98 02/10/20 14:17 103 H 20 87/61 L 97 02/10/20 14:16 28 H 76/61 L 98 02/10/20 14:10 27 H 98 02/10/20 14:01 28 H 89/35 L 97 02/10/20 14:00 31 H 96 02/10/20 13:50 37 H 95 02/10/20 13:47 36 H 90/58 L 95 02/10/20 13:46 32 H 78/54 L 98 02/10/20 13:40 33 H 97 02/10/20 13:30 33 H 98 02/10/20 13:20 33 H 97 02/10/20 13:10 34 H 97 02/10/20 13:01 36 H 97 02/10/20 13:00 37 H 110/80 88 L 02/10/20 12:50 111 H 35 H 97 02/10/20 12:45 127 H 26 H 98/58 L 87 L 02/10/20 12:40 108 H 30 H 96 02/10/20 12:31 122 H 36 H 98 02/10/20 12:30 122 H 34 H 108/81 98 02/10/20 12:27 115 H 36 H 106/88 98 02/10/20 12:20 115 H 35 H 98 02/10/20 12:11 127 H 30 H 90 02/10/20 11:50 36.5 C 127 H 38 H 83 L lab noted along with the CT scan findings PG Care Time/CCT Total # of Minutes Spent Total Time Spent with Patient: Total time spent is greater than 50% in coordination of care (as documented) at patient's floor/unit and/or counseling patient: Coding Level of Care Code 45947 Inpt Consult Level 5 Diagnoses Perforated gallbladder K82.2
[2020-02-10] MEDS ORDERED: fentaNYL citrate 100 MCG/2 ML VIAL ONE (17:52)
[2020-02-10] MEDS ORDERED: PROPOFOL IV EMULSION 10 MG/ML 20 ML VIAL IV ONE (17:52)
[2020-02-10] MEDS ORDERED: LIDOCAINE HCL 2% 2 ML VIAL/AMP(20MG/ML) INFIL ONE (17:53)
[2020-02-10] MEDS ORDERED: ROCURONIUM BROMIDE 10 MG/ML 5 ML VIAL IV ONE (17:53)
[2020-02-10] MEDS ORDERED: LIDOCAINE/EPINEPHRINE 1% 20 ML VIAL ONE (17:58)
[2020-02-10] MEDS ORDERED: DEXAMETHASONE SOD INJ 4 MG/ML VIAL ONE (18:08)
[2020-02-10] MEDS ORDERED: ONDANSETRON INJ 2 MG/ML 2 ML VIAL ONE (18:08)
--- NOTE | 2020-02-10 18:53 | Anesthesiology Consultation ---
Date of Service February 10, 2020 Assessment & Plan Chart Review Chart Review: Acceptable Risk for Surgery Consults Requested none History Surgery Operation Date: 02/10/20 18:00 Proposed Procedures p Laparoscopic Cholecystectomy(Not Applicable) - Gigi Buchanan MD Height/Weight Height: 5 ft 10 in Weight: 83.3 kg Allergies Allergy/AdvReac Type Severity Reaction Status Date / Time No Known Allergies Allergy Verified 02/10/20 15:03 Medications Home Medications Medication Instructions Recorded Confirmed Last Taken nebulizer accessories #1 ea 03/26/19 11/06/19 Unknown nebulizers #1 ea 03/28/19 11/06/19 Unknown lisinopril 30 mg tablet 30 mg PO QAM #90 tab 06/13/19 02/10/20 02/10/20 apixaban 5 mg tablet 5 mg PO BID #180 tab 08/19/19 02/10/20 02/10/20 budesonide-formoterol HFA 160 2 puff INHALATION BID #10.2 gm 08/28/19 02/10/20 02/10/20 mcg-4.5 mcg/actuation aerosol inhaler tiotropium bromide 2.5 2 puffs INH DAILY #4 gm 08/28/19 02/10/20 02/10/20 mcg/actuation mist for inhalation furosemide 40 mg tablet 40 mg PO DAILY #100 tab 10/03/19 02/10/20 02/10/20 omeprazole 20 mg PO DAILY 11/04/19 02/10/20 02/10/20 ipratropium 20 mcg-albuterol 100 1 puff INHALATION TID PRN #4 gm 12/05/1902/10/20 mcg/actuation mist for inhalation montelukast 10 mg tablet 10 mg PO DAILY #90 tab 12/23/19 02/10/20 02/10/20 metoprolol succinate 100 mg 100 mg PO QAM #90 tab 01/09/20 02/10/20 02/10/20 tablet,extended release 24 hr atorvastatin 20 mg tablet 20 mg PO HS #90 tab 01/20/20 02/10/20 02/10/20 Active Medications Generic Name Dose Route Start Last Admin Trade Name Freq PRN Reason Stop Dose Admin Sodium Chloride 1,000 mls @ 125 mls/hr 02/10/20 12:15 02/10/20 15:47 Nss 1000ml IV 02/10/20 20:14 Infused .Q8H FABIANA Infusion Miscellaneous Information 1 ea 02/10/20 14:01 02/10/20 14:56 Piperacill/Tazobac Consult Active N/A 03/11/20 14:00 1 ea UD PRN Administration Consult Miscellaneous Information 1 ea 02/10/20 14:01 02/10/20 14:56 Daptomycin Consult Active N/A 03/11/20 14:00 1 ea UD PRN Administration Consult NPO Date Last Intake of Fluids: 02/07/20 Time Last Intake of Fluids: 09:00 Date Last Intake of Solids: 02/07/20 Time Last Intake of Solids: 09:00 Past Medical History Medical History Atrial fibrillation Cancer MOHS ON NOSE (SKIN CANCER) Chronic obstructive pulmonary disease GERD (gastroesophageal reflux disease) History of Mohs micrographic surgery for skin cancer Hyperlipidemia Hypertension Past Family History Family History Father Family hx colonic polyps Mother Heart disease Other Hypertension Past Surgical History Surgical History Fistula REPAIRED History of cardiac cath History of cardiac radiofrequency ablation 5-6 YEARS AGO ([facility] BY DR. YIN) History of colonoscopy History of heart valve replacement MITRAL VALVE REPLACED 3 YEARS AGO ([place]) History of tonsillectomy History of tooth extraction Status post anal fissurectomy Status post Mohs surgery left cheek and left arm (squamous cell) Social History Smoking Status: Former smoker Smoking cigarettes per day: 40 Hx Alcohol Use: Yes Alcohol type: beer alcohol intake frequency: 0-2 drinks per day Hx Substance Use: No substance use type: does not use Physical Exam Vital Signs Last Vital Signs Temp 37.4 C 02/10/20 18:04 Pulse 85 02/10/20 18:04 Resp 16 02/10/20 18:04 BP 107/84 02/10/20 18:04 Pulse Ox 100 02/10/20 18:04 Testing Laboratory Results 02/10/20 12:23 02/10/20 12:23 Urine Color Dark Yellow 02/10/20 12:38 Urine Appearance Cloudy (Clear) A 02/10/20 12:38 Urine pH 5.0 (4.5-7.5) 02/10/20 12:38 Ur Specific [place] 1.020 (1.000-1.030) 02/10/20 12:38 Urine Protein 1+ (Negative) H 02/10/20 12:38 Urine Glucose (UA) Negative (Negative) 02/10/20 12:38 Urine Ketones Trace (Negative) H 02/10/20 12:38 Urine Nitrite Negative (Negative) 02/10/20 12:38 Ur Leukocyte Esterase Negative (Negative) 02/10/20 12:38 Urine WBC (Auto) 0 /hpf (0-5) 02/10/20 12:38 Urine RBC (Auto) 5-10 /hpf (0-4) H 02/10/20 12:38 U Hyaline Cast (Auto) 10-30 /lpf (0-5) H 02/10/20 12:38 U Epithel Cells (Auto) 5-10 /lpf (0-5) H 02/10/20 12:38 Urine Bacteria (Auto) Negative (Negative) 02/10/20 12:38
[2020-02-10] MEDS ORDERED: PHENYLEPHRINE 100MCG/ML 5ML SYR ONE ×2 (19:01→19:07)
[2020-02-10] MEDS ORDERED: PHENYLEPHRINE HCL 10 MG/ML VIAL ONE ×2 (19:01→19:07)
--- NOTE | 2020-02-10 19:17 | Post Operative Brief Note ---
PG Immediate Post Op with CF Date of Surgery February 10, 2020 Pre & Post Diagnosis Operation Date: 02/10/20 18:00 Pre-Op Diagnosis: Perforated Gallbladder Post-Op Diagnosis: Perforated Gallbladder I identified the patient and participated in the time-out.: Yes Procedure Operation Date: 02/10/20 18:00 Actual Procedures p Abdominal Washings; Laparoscopic Cholecystostomy(Not Applicable) - Gigi Buchanan MD Surgeon Gigi Buchanan MD Food Selector sagrario velazco Estimated Blood Loss 10 Findings Consistent with Post-Op Diagnosis Specimens Specimen Description: 1. Abdominal Fluid Perforated Gallbladder Drains Mi Catheter, [place]-Samuel Drain (Drain #1: Subhepatic Drain #2: Pelvis) and Other (12 [place] islander [place] catheter drain)
[2020-02-10] MEDS ORDERED: LACTATED RINGER'S 1,000 ML IV ONE (19:37)
--- NOTE | 2020-02-10 19:50 | Operative Report ---
PG Post Operative Report Pre & Post Diagnosis Operation Date: 02/10/20 18:00 Pre-Op Diagnosis: Perforated Gallbladder Post-Op Diagnosis: Perforated Gallbladder I identified the patient and participated in the time-out.: Yes Procedure Operation Date: 02/10/20 18:00 Actual Procedures p Abdominal Washings; Laparoscopic Cholecystostomy(Not Applicable) - iGgi Buchanan MD The patient was brought into the operating theater general endotracheal anesthesia timeout for protocol for Covid the abdomen was prepped Betadine solution properly draped timeout was had patient was identified made a small incision supraumbilically sufficient for Veress needle followed by CO2 followed by 5 mm trocar point of entry inspected no injury identified the camera was turned to the right upper quadrant where we could see a very inflamed falciform ligament on top of the left lobe of the liver there is of fibrinous exudate in the right lobe I did not appreciate any exudate but I can see the omentum draping over what it probably was the gallbladder further inspection patient had significant amount of bile draped laterally over the right lobe of the liver very little fibrinous exudate we at this point placed a 5 mm epigastric trocar with preemptive local analgesia and 2 5 mm subcostal ports we started suctioning out stayed on top of the left lobe of the liver took the fibrinous exudate out and underneath there is significant amount of bile we aspirated flushed and cleaned that area out sample took it for cultures and sensitivity we then elevated the left lobe of the liver in summary there was some bile underneath it similarly there was no fibrinous exudate there and we were area irrigated out our attention was turned over to the right lobe of the liver above it irrigated laterally suctioned all that out then we worked our way freeing up the omentum that was over the gallbladder and in that area we could see it acutely inflamed gallbladder with no real patchy necrosis except in the medial aspect towards the neck there was an area of of patchy whitish area suspicious that this may have been the site of the perforation although I was not able to appreciate any significant opening at this point I elected to rather than take out the gallbladder which it would have been very hard to do on this patient also in his present condition with Eliquis on board I brought a #12 mushroom catheter and will use that as a cholecystostomy tube we made a small incision between the 2 right upper quadrant trocar sites and incision quarter inch used a hemostat to enter the abdomen easily and through that we were able to place the mushroom catheter clamped it to avoid and draining the pneumoperitoneum then ice made a small opening in the undersurface of the gallbladder near to fundus and once we opened this there is significant amount of bowel, not it did not appreciate any stones although we note that the patient had cholelithiasis by CAT scan that he had in October of this year the mushroom catheter was then placed in that opening that I had made and if it was secure enough that I did not think we needed to stitch it we did place a piece of omentum around that area then sutured to the skin edge with 2-0 silk suture then elected to drain the hepatic around the cholecystostomy tube and right gutter with a 19 Gene drain that was placed underneath and taken out through the lateral trocar site touches skin edge with 2-0 silk we irrigated down the pelvis area there was some fluid but not significant bile but I elected to drain that with another Gene drain which was placed in the subcostal area through the previous trocar site and was positioned on the pelvis attaching skin edges with 2-0 silk we had a significant amount of drainage at the all these there was no evidence of any gross bleeding although the liver appeared we probably macronodular most likely some cirrhosis. The only wound we needed to suture was the epigastric 5 mm trocar site in the umbilical area which was done after removing the trochars and 4-0 Monocryl was used for subcu Steri-Strips applied procedure was tolerated well by the patient estimated blood loss approximately 10 cc addendum Tk Mccloud physician political science research assistant was present throughout the case and helped with exposure retraction and wound closure Surgeon Gigi Buchanan MD Professor/Nurse Anesthetist sagrario velazco Estimated Blood Loss 10 Findings Consistent with Post-Op Diagnosis Specimens peritoneal fluid Description of Procedure merda I attest to the content of the Intraoperative Record and any orders documented therein. Any exceptions are noted below.
[2020-02-10] MEDS: LACTATED RINGER'S 1,000 ML IV SCH (20:00)
[2020-02-10] MEDS ORDERED: STAT IV Infusion **Titration per Protocol STA ×2 (20:02→21:07)
[2020-02-10] MEDS ORDERED: ALBUT/IPRATROP 3MG/0.5MG NEB 3 ML VIAL NEB PRN (20:05)
[2020-02-10] MEDS ORDERED: DEXTROSE 50% 50 ML SYRINGE IV PRN (20:05)
[2020-02-10] MEDS ORDERED: METOPROLOL TARTRATE 1 MG/ML VIAL IV PRN (20:05)
[2020-02-10] MEDS ORDERED: CARBOHYDRATES FOR HYPOGLYCEMIA PO PRN (20:05)
[2020-02-10] MEDS ORDERED: IPRATROPIUM BROMIDE/ALBUTEROL respimat INH INH PRN (20:05)
[2020-02-10] MEDS ORDERED: ACETAMINOPHEN 325 MG TAB PO PRN (20:05)
[2020-02-10] MEDS ORDERED: GLUCAGON FOR INJ 1 MG VIAL SQ PRN (20:05)
[2020-02-10] MEDS ORDERED: NORMOSOL-R 1,000 ML IV SCH (20:05)
[2020-02-10] MEDS ORDERED: GLUCOSE 40% GEL 15 GM TUBE PO PRN (20:05)
[2020-02-10] MEDS ORDERED: GLUCOSE 10 TABS/TUBE PO PRN (20:05)
[2020-02-10] MEDS ORDERED: ONDANSETRON INJ 2 MG/ML 2 ML VIAL IV PRN (20:05)
[2020-02-10] MEDS: NOREPINEPHRINE BIT INJ 8 MG in DEXTROSE 5% 500 ML IV SCH (20:15)
[2020-02-10] MEDS ORDERED: ALBUTEROL HFA 8 GM INHALER INH PRN (20:24)
[2020-02-10] MEDS ORDERED: IPRATROPIUM BROMIDE HFA INHALER INH PRN (20:26)
[2020-02-10] MEDS ORDERED: INSULIN ASPART 100 UNITS/ML 3 ML PEN SC SCH (21:00)
[2020-02-10] MEDS ORDERED: APIXABAN 5 MG TABLET PO SCH ×2 (21:00)
[2020-02-10] MEDS ORDERED: PROPOFOL BOLUS FROM BAG IV PRN (21:07)
[2020-02-10] MEDS ORDERED: fentaNYL DRIP 1,250 MCG/250 ML BAG IV SCH (21:15)
[2020-02-10 21:18] LABS: iSTAT Art Bld Gas pCO2 Correct 44 mmHg (35-46); iSTAT Art Bld Gas pH Corrected 7.278 (7.35-7.45); iSTAT Arterial Blood Gas HCO3 21 meg/L (19-24); iSTAT Arterial Blood Gas pCO2 46 mmHg (35-46); iSTAT Arterial Blood Gas pH 7.27 (7.35-7.45); iSTAT Arterial Blood Gas pO2 83 mmHg (80-95); iSTAT Arterial Blood Gas pO2 C 79; iSTAT Carbon Dioxide 22 mmol/L (24-31); iSTAT FiO2 30 %; iSTAT Hematocrit 38 % (42-52); iSTAT Hemoglobin 12.9 g/dl (14.0-18.0); iSTAT Potassium 3.6 mmol/L (3.3-5.0); iSTAT Site Art Line; iSTAT Sodium 139 mmol/L (135-144)
--- NOTE | 2020-02-10 21:18 | Anesthesiology Progress Note ---
Date of Service February 10, 2020 Anesthesia Post Procedure Vital Signs Vital Signs: Temp Pulse Pulse Resp BP BP Pulse Ox 02/10/20 20:40 78 16 90/61 L 97 02/10/20 20:25 79 16 101/45 L 97 02/10/20 20:20 88 16 81/45 L 99 02/10/20 20:00 36.2 C L 80 91 H 16 106/51 L 97 02/10/20 18:04 37.4 C 85 16 107/84 100 02/10/20 16:50 94 H 20 100 02/10/20 16:45 91 H 21 98/53 L 100 02/10/20 16:40 99 H 26 H 100 02/10/20 16:31 94 H 26 H 97 02/10/20 16:30 107 H 31 H 99/77 L 100 02/10/20 16:20 99 H 30 H 98 02/10/20 16:15 82 33 H 122/52 L 93 02/10/20 16:10 86 26 H 96 02/10/20 16:01 93 H 30 H 100 02/10/20 16:00 93 H 29 H 74/49 L 100 02/10/20 15:50 107 H 29 H 100 02/10/20 15:45 92 H 23 87/75 L 100 02/10/20 15:40 94 H 29 H 100 02/10/20 15:31 98 H 20 99 02/10/20 15:30 92 H 27 H 106/55 L 100 02/10/20 15:20 97 H 30 H 02/10/20 15:15 98 H 31 H 93/58 L 100 02/10/20 15:10 106 H 29 H 100 02/10/20 15:02 107 H 19 89 L 02/10/20 15:01 109 H 35 H 113/78 99 02/10/20 15:00 102 H 27 H 93 02/10/20 14:50 94 H 29 H 99 02/10/20 14:48 105 H 29 H 111/56 L 87 L 02/10/20 14:46 112 H 35 H 02/10/20 14:26 103 H 34 H 102/55 L 98 02/10/20 14:20 105 H 32 H 98 02/10/20 14:17 103 H 20 87/61 L 97 02/10/20 14:16 28 H 76/61 L 98 02/10/20 14:10 27 H 98 02/10/20 14:01 28 H 89/35 L 97 02/10/20 14:00 31 H 96 02/10/20 13:50 37 H 95 02/10/20 13:47 36 H 90/58 L 95 02/10/20 13:46 32 H 78/54 L 98 02/10/20 13:40 33 H 97 02/10/20 13:30 33 H 98 02/10/20 13:20 33 H 97 02/10/20 13:10 34 H 97 02/10/20 13:01 36 H 97 02/10/20 13:00 37 H 110/80 88 L 02/10/20 12:50 111 H 35 H 97 02/10/20 12:45 127 H 26 H 98/58 L 87 L 02/10/20 12:40 108 H 30 H 96 02/10/20 12:31 122 H 36 H 98 02/10/20 12:30 122 H 34 H 108/81 98 02/10/20 12:27 115 H 36 H 106/88 98 02/10/20 12:20 115 H 35 H 98 02/10/20 12:11 127 H 30 H 90 02/10/20 11:50 36.5 C 127 H 38 H 83 L Transfer of Care Handoff Completed per policy Notes Mental Status: see notes below (Sedated on mech vent. Nods head to verbal stimulus.) Patient Amnestic to Procedure: Yes Nausea / Vomiting: adequately controlled Pain: adequately controlled Airway Patency, RR, SpO2: stable & adequate BP & HR: stable & adequate Hydration State: stable & adequate Anesthetic Complications: no major complications apparent
--- NOTE | 2020-02-10 21:22 | Critical Care Consultation ---
Date of Consultation February 10, 2020 Assessment & Plan (1) Admitted to intensive care unit: Reason Critically Ill: 79-year-old male with acutely perforated gallbladder requiring emergent laparoscopic evaluation with abdominal washout and cholecystostomy placement requiring close hemodynamic monitoring status post intra-abdominal surgery. Patient with acute renal failure with underlying cardiac illnesses requiring close hemodynamic monitoring, judicial use of IV fluid, pressure support, and ventilator management. NEURO - * CAM ICU: Unable to assess secondary to sedation. * Sedation: Propofol * Pain: Fentanyl drip * Altered mental status: * Apparently per initial presentation. * CT head unremarkable. * Likely secondary to metabolic encephalopathy in the setting of severe sepsis with septic shock, significant infection, acute renal failure, etc. * Continue to monitor as condition improves. CARDIAC/VASCULAR - * NSTEMI: * Type 2 in the setting of significant metabolic demand. * EKG w/o acute ST elevations. * Trend Troponin. * A-Fib w/ RVR: * Chronic. * Patient currently on Eliquis. * Will transition to IV Heparin. General Surgery fine with starting ~12 hrs s/p surgical intervention. * Metoprolol PRN. * EKG: A-Fib w/ RVR @ [address] depressions laterally. Unchanged from 10/2019. QTc 480 ms. * HTN, HLD, CHF: * Hold home Rx in the setting of current illness. * Restart home Rx as clinical picture improves. * Monitor on telemetry. RESPIRATORY - * Respiratory Failure: * Patient presented w/ SOB --> Likely compensatory in the metabolically acidotic patient w/ ARF. * Agree w/ keeping intubated overnight. * Wean down FiO2 as tolerated. * ABGs PRN. * COPD/Pulm HTN: * Continue home inhalers/nebs. GI/NUTRITION - * Gallbladder Perforation: * s/p Laparoscopic Abdominal Washing, Cholecystostomy tube placement, Subhepatic/Pelvic drain placement. * Continue to cover w/ IV Zosyn. * Likely to experience significant fluid shifting postoperatively. * Replace w/ IVF aggressively. * Will add Albumin as well. * Appreciate Surgery Recommendations. * Prophylaxis: Protonix RENAL/LYTES - * Acute Renal Failure: * Likely Prerenal in the setting of severe sepsis as well as profound dehydration. * Continue w/ aggressive IVF resuscitation. * Replace electrolytes appropriately. * Mi for I&Os. * IVF: LR@125 mL/hr - * Mi in place - Strict I&Os. * h/o BPH ENDO - * Pre-DM * BSGs per unit protocol. ISS --> gtt per unit policy. HEME - * Stable H&H * Monitor for any drop in H&H s/p surgical intervention in the chronically anticoagulated patient (Eliquis) ID - * Severe Sepsis w/ Septic Shock: * s/s Gallbladder Perforation. * Source control via surgical intervention/washout w/ Cholecystostomy tube placement. * Continue w/ IV Zosyn. * Lactate trending down. * Check PCT. * Blood Cx Pending. LINES/IV ACCESS - * PIVs x1 * Mi * ET Tube * OG * Cholecystostomy tube * Subhepatic Drain * Pelvic Drain * RIGHT Femoral CVL * RIGHT Femoral A-line DVT PROPHYLAXIS - * Will start patient on Heparin gtt w/o bolus on 02/10 @0530. This will be approximately 12 hrs post op. * Hold Eliquis. * Surgery OK w/ this plan. * SCDs I have personally spent 56 minutes of critical care time in the direct management of this patient. This is a life/limb threatening event. This includes time spent evaluating patient, direct bedside care, chart review, placing orders, interpretation of diagnostic studies, discussion with consultants, patient, and family members, as well as other required patient management act ivities. This time is exclusive of all separately billable procedures, and teaching time and separate from and in addition to any other critical care service time. Thank you for allowing us to participate in the care of this patient. Please refer to my attending physician's documentation for any further recommendations. (2) Perforated gallbladder: (3) S/P laparoscopic procedure: (4) Sepsis: (5) Acute renal failure: (6) Acute dehydration: (7) NSTEMI (non-ST elevated myocardial infarction): (8) Elevated troponin: (9) Atrial fibrillation with rapid ventricular response: (10) Hypertension: (11) Pulmonary hypertension assoc with unclear multi-factorial mechanisms: (12) Acid reflux: (13) Arteriosclerotic coronary artery disease: (14) Atrial fibrillation: (15) Benign prostatic hyperplasia: (16) Cardiomyopathy: (17) Chronic obstructive pulmonary disease: (18) Chronic systolic (congestive) heart failure: (19) History of mitral valve replacement with bioprosthetic valve: (20) Hypertension: History of Present Illness Attending Physician: Eligio Tong MD History of Present Illness Patient is a 79-year-old male with a significant past medical history of hypertension,, hyperlipidemia, coronary artery disease CHF, chronic atrial fibrillation, cardiomyopathy, history of mitral valve replacement, COPD, BPH, pulmonary hypertension, and GERD. Per reports, the patient presented today with altered mental status, difficulty breathing, and abdominal pain. Patient's reports that he has had some slight symptoms of abdominal pain since Monday. He has not eaten much over the last 4 to 5 days. reports that he is not complained of much over the last few days. Upon evaluation in the emergency department, patient was noted to have a moderate leukocytosis in excess of 18,000 with left shift. Patient was noted to be in acute renal failure with a creatinine of 2.59. Baseline creatinine in 10/27 was 1.23. Lactate 3.1. Troponin [address] concerning for gallbladder perforation. The patient was taken emergently to the operating suite for abdominal washing. Patient had a cholecystostomy tube placed as well as subhepatic and pelvic drains placed. Intraprocedurally, the patient did require phenylephrine as well as 1.5 L of IV fluids. Gallbladder was not removed emergently secondary to the patient's use of Eliquis and concerns for high risk postoperative bleeding. Patient was transported to the ICU and left on the ventilator secondary to concerns for fragile state status post extensive surgical intervention. Upon arrival in the ICU, the patient is intubated and sedated. Patient unable to appreciate in history of present illness. I did speak with the patient's in the waiting room. She reports that he had not been eating or drinking much for the last 4 to 5 days. Overall, she reports that he did not complain much, but did notice some abdominal pain on Monday. Otherwise, she offers no significant historical information. Allergies Allergy/AdvReac Type Severity Reaction Status Date / Time No Known Allergies Allergy Verified 02/10/20 15:03 Home Medications Home Medications Medication Instructions Recorded Confirmed Type nebulizer accessories #1 ea 03/26/19 11/06/19 Rx nebulizers #1 ea 03/28/19 11/06/19 Rx lisinopril 30 mg tablet 30 mg PO QAM #90 tab 06/13/19 02/10/20 Rx apixaban 5 mg tablet 5 mg PO BID #180 tab 08/19/19 02/10/20 Rx budesonide-formoterol HFA 160 2 puff INHALATION BID #10.2 gm 08/28/19 02/10/20 Rx mcg-4.5 mcg/actuation aerosol inhaler tiotropium bromide 2.5 2 puffs INH DAILY #4 gm 08/28/19 02/10/20 Rx mcg/actuation mist for inhalation furosemide 40 mg tablet 40 mg PO DAILY #100 tab 10/03/19 02/10/20 Rx omeprazole 20 mg PO DAILY 11/04/19 02/10/20 History ipratropium 20 mcg-albuterol 100 1 puff INHALATION TID PRN #4 gm 12/05/19 02/10/20 Rx mcg/actuation mist for inhalation montelukast 10 mg tablet 10 mg PO DAILY #90 tab 12/23/19 02/10/20 Rx metoprolol succinate 100 mg 100 mg PO QAM #90 tab 01/09/20 02/10/20 Rx tablet,extended release 24 hr atorvastatin 20 mg tablet 20 mg PO HS #90 tab 01/20/20 02/10/20 Rx Patient History Medical History (Updated 02/10/20 @ 23:14 by Heath Muñoz PA-C) Atrial fibrillation Cancer MOHS ON NOSE (SKIN CANCER) Chronic obstructive pulmonary disease GERD (gastroesophageal reflux disease) History of Mohs micrographic surgery for skin cancer Hyperlipidemia Hypertension Surgical History (Updated 02/10/20 @ 23:14 by Heath Muñoz PA-C) Fistula REPAIRED History of cardiac cath History of cardiac radiofrequency ablation 5-6 YEARS AGO ([facility] BY DR. 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) Family History Father Family hx colonic polyps Mother Heart disease Other Hypertension Social History Smoking Status: Former smoker Cigarettes Per Day: 40; Second Hand Exposure: No; Hx Alcohol Use: Yes Alcohol type: beer Hx Substance Use: No Preferred Language: Bol[place]ian Communication Ability: Effective Visual Impairment: Limited Hearing Ability: Normal Yarn Tester Required: No Beliefs That Will Affect Care: None marital status: Current Living Situation: Spouse current occupational status: retired Other Information That Helps Us Care for You: No Feels Safe at Home: Yes Safety Concerns: Feels Safe At This Time Childhood Exposure to Second-Hand Smoke: Yes caffeine: Yes Dental Care, Regularly: Yes Physical Activity Frequency: 1-2 Times per Week Physical Activity Frequency Comment: regular Seatbelt Use: always Sunscreen Use: Yes Assistive Devices: Denture - Lower Review of Systems Review of Systems: Unobtainable due to endotracheal tube and Unobtainable due to reduced consciousness Physical Exam Physical Exam: VITAL SIGNS - Vital signs and nursing notes were reviewed. GENERAL - 79-year-old male appearing his stated age who is in no acute distress. Intubated and sedated. SKIN - Without rashes. HEAD - NC/AT. EYES - PERRL with EOMI bilaterally. Sclera anicteric. EARS - No deformities of external structures noted on gross examination bilaterally. NOSE - Midline and without cyanosis. No epistaxis or purulent drainage noted. MOUTH/OROPHARYNX - ET Tube in place. Without perioral cyanosis. Buccal mucosa pink and moist and without leukoplakia. NECK - Neck with FROM. Supple to palpation. No nuchal rigidity. LUNGS - Chest wall symmetric without accessory muscle use, intercostals retractions, or central cyanosis. Normal vesicular breath sounds CTA B/L. No wheezes, rales, or rhonchi appreciated. CARDIAC - RRR with S1/S2. No murmur, rubs, or gallops appreciated. ABDOMEN - Abdominal contour obese without pulsations or visible masses. Surgical drains x3 clean, dry, and intact. BS normoactive all four quadrants. No tenderness, palpable masses, hepatosplenomegaly, or ascites noted. EXTREMITIES - No clubbing or peripheral cyanosis. No pretibial edema present. +3/5 radial and dorsalis pedis pulses palpated throughout. NEUROLOGIC - No focal neurological deficits appreciated. Unable to fully assess secondary to sedation. Results & Data Results & Data ([facility]) Vital Signs (Past 12 Hours) Vital Signs Temp Pulse Pulse Resp BP BP Pulse Ox 02/10/20 20:40 78 16 90/61 L 97 02/10/20 20:25 79 16 101/45 L 97 02/10/20 20:20 88 16 81/45 L 99 02/10/20 20:00 36.2 C L 80 91 H 16 106/51 L 97 02/10/20 18:04 37.4 C 85 16 107/84 100 02/10/20 16:50 94 H 20 100 02/10/20 16:45 91 H 21 98/53 L 100 02/10/20 16:40 99 H 26 H 100 02/10/20 16:31 94 H 26 H 97 02/10/20 16:30 107 H 31 H 99/77 L 100 02/10/20 16:20 99 H 30 H 98 02/10/20 16:15 82 33 H 122/52 L 93 02/10/20 16:10 86 26 H 96 02/10/20 16:01 93 H 30 H 100 02/10/20 16:00 93 H 29 H 74/49 L 100 02/10/20 15:50 107 H 29 H 100 02/10/20 15:45 92 H 23 87/75 L 100 02/10/20 15:40 94 H 29 H 100 02/10/20 15:31 98 H 20 99 02/10/20 15:30 92 H 27 H 106/55 L 100 02/10/20 15:20 97 H 30 H 02/10/20 15:15 98 H 31 H 93/58 L 100 02/10/20 15:10 106 H 29 H 100 02/10/20 15:02 107 H 19 89 L 02/10/20 15:01 109 H 35 H 113/78 99 02/10/20 15:00 102 H 27 H 93 02/10/20 14:50 94 H 29 H 99 02/10/20 14:48 105 H 29 H 111/56 L 87 L 02/10/20 14:46 112 H 35 H 02/10/20 14:26 103 H 34 H 102/55 L 98 02/10/20 14:20 105 H 32 H 98 02/10/20 14:17 103 H 20 87/61 L 97 02/10/20 14:16 28 H 76/61 L 98 02/10/20 14:10 27 H 98 02/10/20 14:01 28 H 89/35 L 97 02/10/20 14:00 31 H 96 02/10/20 13:50 37 H 95 02/10/20 13:47 36 H 90/58 L 95 02/10/20 13:46 32 H 78/54 L 98 02/10/20 13:40 33 H 97 02/10/20 13:30 33 H 98 02/10/20 13:20 33 H 97 02/10/20 13:10 34 H 97 02/10/20 13:01 36 H 97 02/10/20 13:00 37 H 110/80 88 L 02/10/20 12:50 111 H 35 H 97 02/10/20 12:45 127 H 26 H 98/58 L 87 L 02/10/20 12:40 108 H 30 H 96 02/10/20 12:31 122 H 36 H 98 02/10/20 12:30 122 H 34 H 108/81 98 02/10/20 12:27 115 H 36 H 106/88 98 02/10/20 12:20 115 H 35 H 98 02/10/20 12:11 127 H 30 H 90 02/10/20 11:50 36.5 C 127 H 38 H 83 L Coding Level of Care Code Critical Care 1st 30-74 mins Diagnoses Admitted to intensive care unit Z78.9 Perforated gallbladder K82.2 S/P laparoscopic procedure Z98.890 Sepsis A41.9 Acute renal failure N17.9 Acute dehydration E86.0 NSTEMI (non-ST elevated myocardial infarction) I21.4 Elevated troponin R77.8 Atrial fibrillation with rapid ventricular response I48.91 Hypertension I10 Pulmonary hypertension assoc with unclear multi-factorial mechanisms I27.29 Acid reflux K21.9 Arteriosclerotic coronary artery disease I25.10 Atrial fibrillation I48.91 Benign prostatic hyperplasia N40.0 Cardiomyopathy I42.9 Chronic obstructive pulmonary disease J44.9 COPD type: unspecified COPD Chronic systolic (congestive) heart failure I50.22 History of mitral valve replacement with bioprosthetic valve Z95.3 Hypertension I10 Time Spent (min) 56 (1) Chronic obstructive pulmonary disease COPD type: unspecified COPD Qualified Code(s): J44.9 - Chronic obstructive pulmonary disease, unspecified
--- NOTE | 2020-02-10 21:22 | Procedure Note ---
Procedure Note Date of Service February 10, 2020 Procedure: Femoral Central Line Placement Attending: Dr. Cortez APC: Heath Muñoz PA-C Indication: Central Drug Administration, Poor Venous Access, Multiple Lab Draws Necessary, etc. Anesthesia: Lidocaine 1% Emergent consent implied in the setting of need for administration of multiple indications and limited peripheral access due to poor peripheral veins. Verbal consent obtained from patient's for central line, arterial line, and other life-saving measures at this point. Because, risk, benefits, and alternatives were discussed. She wishes for us to proceed. A time-out was completed verifying correct patient, procedure, site, positioning, and implants(s) or special equipment if applicable. Patients RIGHT Groin was cleansed and draped in the typical sterile fashion using Chloraprep. The Femoral Vein and Femoral Artery were identified using ultrasound. The superficial tissue was anesthetized using 3.0 mL of 1% lidocaine without epinephrine under direct visualization with the ultrasound. After adequate anesthetization was achieved, the Femoral Vein was cannulated under direct ultrasound guidance using an introducer needle on a syringe. Good venous blood return was maintained prior to removal of syringe from introducer needle. Using Seldinger Technique, a guide wire was advanced through the introducer needle without resistance. The introducer needle was removed and ultrasound images were obtained of the guide wire within the Femoral Vein and saved to the patients medical record. A small incision was made in penetrating fashion at the guide wire insertion site utilizing an 11 blade scalpel. The dilator was advanced to the vessel without resistance. The dilator was exchanged for the triple lumen catheter which was advanced into the vessel without resistance. The guide wire was removed intact from the catheter without issue. Claves were placed on each c atheter tip with confirmation of good blood flow from each lumen. Each port was easily flushed with sterile saline. The catheter was placed at the hub and sutured in place. BioPatch was applied to the catheter and a sterile Tegaderm dressing was applied over the catheter with careful attention to sterility. Patient tolerated procedure well. No immediate complications were met. Images obtained are saved for permanent record Procedural Ultrasound Guidance: Procedure Date: 02/10/2020 Indication: Poor peripheral access, multiple medications, pressors, frequent lab draws Attending: Dr. Cortez APC: Heath Muñoz PA-C Artery AND Vein visualized: YES Compressible Vein: YES Guidewire or Short Catheter seen in vein prior to dilation: YES Line confirmed in Vein with ultrasound: YES Images obtained are saved for permanent record. Coding CPT Codes Tubes, Drains, and Vasc Access - Tubes, Drains, and Vasc Access: [id number] Insertion Of Non-tunneled Catheter Age 5 Yrs> ([id number]) Tubes, Drains, and Vasc Access - Tubes, Drains, and Vasc Access: [id number] Ultrasound Guidance For Vascular ([id number]) [facility] [place] Procedure Codes (Charges) Tubes, Drains, and Vasc Access Procedure 1: Tubes, Drains, and Vasc Access: [id number] Insertion Of Non-tunneled Catheter Age 7 Yrs> Procedure 2: Tubes, Drains, and Vasc Access: [id number] Ultrasound Guidance For Vascular
--- NOTE | 2020-02-10 21:22 | Procedure Note ---
Procedure Note Date of Service February 10, 2020 Procedure: Femoral Arterial Line Placement Attending: Dr. Cortez APC: Heath Muñoz PA-C Indication: Central Drug Administration, Poor Venous Access, Multiple Lab Draws Necessary, etc. Anesthesia: Lidocaine 1% Emergent consent implied in the setting of need for administration of multiple i ndications and limited peripheral access due to poor peripheral veins. Verbal consent obtained from patient's for central line, arterial line, and other life-saving measures at this point. Because, risk, benefits, and alternatives were discussed. She wishes for us to proceed. A time-out was completed verifying correct patient, procedure, site, positioning, and implants(s) or special equipment if applicable. Patients RIGHT Groin was cleansed and draped in the typical sterile fashion using Chloraprep. The Femoral Vein and Femoral Artery were identified using ultrasound. The superficial tissue was anesthetized using 3.0 mL of 1% lidocaine without epinephrine under direct visualization with the ultrasound. After adequate anesthetization was achieved, the Femoral Artery was cannulated under direct ultrasound guidance using an introducer needle on a syringe. Good arterial blood return was maintained prior to removal of syringe from introducer needle. Using Seldinger Technique, a guide wire was advanced through the introducer needle without resistance. The introducer needle was removed and ultrasound images were obtained of the guide wire within the Femoral Artery and saved to the patients medical record. 20 Fr Arterial catheter was advanced into the vessel without resistance. The guide wire was removed intact from the catheter without issue. Line was assembled to the pressure bag. Appropriate arterial waveform was noted. Good blood return with appropriate flushing of line. The catheter was placed at the hub and sutured in place. BioPatch was applied to the catheter and a sterile Tegaderm dressing was applied over the catheter with careful attention to sterility. Patient tolerated procedure well. No immediate complications were met. Images obtained are saved for permanent record Procedural Ultrasound Guidance: Procedure Date: 02/10/2020 Indication: Pressors, Frequent ABGs, poor peripheral access Attending: Dr. Cortez APC: Heath Muñoz PA-C Artery AND Vein visualized: YES Compressible Vein: YES Guidewire or Short Catheter seen in vein prior to threading catheter: YES Line confirmed in Vein with ultrasound: YES Images obtained are saved for permanent record. Coding CPT Codes Tubes, Drains, and Vasc Access - Tubes, Drains, and Vasc Access: [id number] Place Catheter In Artery ([id number]) Tubes, Drains, and Vasc Access - Tubes, Drains, and Vasc Access: [id number] Ultrasound Guidance For Vascular ([id number]) [facility] [place] Procedure Codes (Charges) Tubes, Drains, and Vasc Access Procedure 3: Tubes, Drains, and Vasc Access: [id number] Place Catheter In Artery Procedure 4: Tubes, Drains, and Vasc Access: [id number] Ultrasound Guidance For Vascular
[2020-02-10] MEDS ORDERED: ICU PROTOCOL FOR HYPERGLYCEMIA PRN (21:24)
[2020-02-10 21:29] LABS: Basophils # (auto) 0.01 K/uL (0-0.2); Basophils % (auto) 0.1 %; Eosinophils # (auto) 0.01 K/uL (0-0.5); Eosinophils % (auto) 0.1 %; Hematocrit (blood only) 38.5 % (42-52); Hemoglobin 12.8 g/dL (14.0-18.0); Immature Granulocytes # (auto) 0.04 K/uL (0.00-0.02); Immature Granulocytes % (auto) 0.3 %; Lymphocytes # (auto) 0.75 K/uL (1.2-3.4); Lymphocytes % (auto) 5.2 %; Mean Corpuscular Hemoglobin 31.4 pg (25-34); Mean Corpuscular Hgb Conc 33.2 g/dL (32-36); Mean Corpuscular Volume 94.6 fL (80-100); Mean Platelet Volume 11.9 fL (7.4-10.4); Monocytes # (auto) 0.82 K/uL (0.11-0.59); Monocytes % (auto) 5.7 %; Neutrophils # (auto) 12.72 K/uL (1.4-6.5); Neutrophils % (auto) 88.6 %; Platelet Count 155 K/uL (130-400); RDW Coefficient of Variation 14.4 % (11.5-14.5); Red Blood Count 4.07 M/uL (4.7-6.1); White Blood Count 14.35 K/uL (4.8-10.8)
[2020-02-10 21:43] LABS: BUN Creatinine Ratio 27.3 (10-20); Calcium 7.2 mg/dl (8.5-10.1); Est GFR (African American) 39.1; Est GFR (Non-African American) 33.7; Magnesium 1.6 mg/dl (1.8-2.4); Potassium 3.6 mmol/L (3.5-5.1); Troponin I 0.055 ng/ml (0-0.045)
[2020-02-10] MEDS: PIPERACILLIN/TAZOBACTAM 3.375 GM in DEXTROSE 5% 100 ML IV SCH (22:01)
[2020-02-10] MEDS: ATORVASTATIN 20 MG TAB PO SCH (22:17)
[2020-02-10] MEDS ORDERED: MAGNESIUM SULFATE / D5W 1 GM/100 ML BAG IV ONE (22:45)
[2020-02-10] MEDS ORDERED: CALCIUM CHLORIDE 10% 1,000 MG in SODIUM CHLORIDE 0.9% 50 ML IV ONE (22:45)
[2020-02-10] MEDS: ALBUMIN 25% 12.5 GM/50 ML VIAL IV SCH (23:00)
[2020-02-10] MEDS: propofoL 1,000 MG/100 ML VIAL IV SCH (23:00)
[2020-02-11] MEDS: ALBUMIN 25% 12.5 GM/50 ML VIAL IV SCH ×3 (00:29→08:18)
[2020-02-11] MEDS ORDERED: Nursing to Pharmacy Communication SCH (03:45)
--- NOTE | 2020-02-11 04:51 | Surgery Progress Note ---
Date of Service February 11, 2020 Assessment & Plan (1) Perforated gallbladder: Patient came in basically in septic from perforated gallbladder that probably happened a few days ago At this point given his clinical situation I recommended proceed with laparoscopy abdominal washout in the right upper quadrant drainage of that area possible cholecystostomy or cholecystectomy The risk and complication including bleeding because of the Eliquis was discussed with the patient and his and we will proceed accordingly 02/11/20 12 hours postop laparoscopic washout bile peritonitis cholecystostomy tube placement The patient looks remarkably well hopefully may be able to extubate him later today keep him in ICU after that for least 24 hours we will leave NG tube in until his GI function returns those abdomen is fairly benign this morning Admission and Anticipated Discharge Date Admission Date: February 10, 2020 Subjective Remains intubated Physical Exam Physical Exam: NG tube drainage slight bilious in nature and significant amount of output yesterday in the emergency room which was nonbilious mostly yellowish Urine output is increased substantially his creatinine and BUN are normalizing The drainage from cholecystostomy tube still slightly bloody drainage from the 2 Cody-Samuel mostly slight bloody nonbilious The abdomen is soft not distended Results & Data ([facility]) Vital Signs (Past 12 Hours) Vital Signs Temp Pulse Pulse Resp BP BP Pulse Ox 02/11/20 03:00 74 16 97/40 L 98 02/11/20 02:00 77 82 17 130/51 L 97 02/11/20 00:00 36.4 C L 84 87 16 105/44 L 106/46 L 97 02/10/20 23:43 93 H 19 97 02/10/20 23:00 84 18 125/51 L 97 02/10/20 22:11 100 H 16 113/58 L 125/53 L 97 02/10/20 21:05 84 16 112/58 L 97 02/10/20 20:40 78 16 90/61 L 97 02/10/20 20:25 79 16 101/45 L 97 02/10/20 20:20 88 16 81/45 L 99 02/10/20 20:00 36.2 C L 94 H 87 16 118/50 L 99 02/10/20 19:51 86 16 81/38 L 99 02/10/20 19:41 90 16 93/38 L 100 02/10/20 19:31 36.2 C L 86 16 117/50 L 100 02/10/20 18:04 37.4 C 85 16 107/84 100 02/10/20 16:50 94 H 20 100 PG Care Time/CCT Total # of Minutes Spent Total Time Spent with Patient: Total time spent is greater than 50% in coordination of care (as documented) at patient's floor/unit and/or counseling patient: Coding Level of Care Code None Diagnoses Perforated gallbladder K82.2
[2020-02-11] MEDS: PIPERACILLIN/TAZOBACTAM 3.375 GM in DEXTROSE 5% 100 ML IV SCH ×3 (05:03→20:52)
[2020-02-11 05:19] LABS: Hematocrit (blood only) 39.3 % (42-52); Hemoglobin 12.5 g/dL (14.0-18.0); Mean Corpuscular Hemoglobin 30.4 pg (25-34); Mean Corpuscular Hgb Conc 31.8 g/dL (32-36); Mean Corpuscular Volume 95.6 fL (80-100); Mean Platelet Volume 11.9 fL (7.4-10.4); Platelet Count 155 K/uL (130-400); RDW Coefficient of Variation 14.6 % (11.5-14.5); RDW Standard Deviation 51.3 fL (36.4-46.3); Red Blood Count 4.11 M/uL (4.7-6.1); White Blood Count 11.45 K/uL (4.8-10.8)
[2020-02-11] MEDS ORDERED: Heparin IV Standard *NO* Bolus IV ONE (05:30)
[2020-02-11 05:39] LABS: iSTAT Arterial Blood Gas HCO3 22 meg/L (19-24); iSTAT Arterial Blood Gas pCO2 43 mmHg (35-46); iSTAT Arterial Blood Gas pH 7.32 (7.35-7.45); iSTAT Arterial Blood Gas pO2 91 mmHg (80-95); iSTAT Carbon Dioxide 23 mmol/L (24-31); iSTAT FiO2 30 %; iSTAT Site Art Line
[2020-02-11 05:44] LABS: BUN Creatinine Ratio 29.7 (10-20); Calcium 7.8 mg/dl (8.5-10.1); Creatinine Clr Calc Pharmacy 38.9 ml/min; Est GFR (African American) 46.1; Est GFR (Non-African American) 39.7; Magnesium 2.2 mg/dl (1.8-2.4); Potassium 3.9 mmol/L (3.5-5.1)
[2020-02-11 05:49] LABS: Phosphorus 4.1 mg/dl (2.5-4.9); Troponin I 0.018 ng/ml (0-0.045)
[2020-02-11 06:30] LABS: Partial Thromboplastin Ratio 1.6; Partial Thromboplastin Time 43.3 Seconds (21.0-31.0)
[2020-02-11] MEDS: INSULIN ASPART 100 UNITS/ML 3 ML PEN SC SCH ×3 (06:30→18:08)
[2020-02-11 06:42] LABS: Albumin Level 2.3 gm/dl (3.4-5.0); Bilirubin Direct 0.9 mg/dl (0-0.2); Bilirubin,Total 1.5 mg/dl (0.2-1); Total Protein 5.4 gm/dl (6.4-8.2)
[2020-02-11] MEDS: HEPARIN SODIUM/DEXTROSE 25,000 UNITS/500 ML BAG IV SCH (06:44)
[2020-02-11] MEDS ORDERED: LACTATED RINGER'S 500 ML IV ONE (06:47)
[2020-02-11] MEDS: LACTATED RINGER'S 1,000 ML IV SCH (07:29)
--- NOTE | 2020-02-11 08:01 | XRay Report ---
XR chest 1V portable CLINICAL HISTORY: s/p OR intubation COMPARISON STUDY: Chest radiograph February 10, 2020 at 12:36 PM. FINDINGS: The tip of the endotracheal tube 6.2 cm above the helio. Tip of nasogastric tube is not de finitively identified but at least within the body of the stomach. There is no pneumothorax. No defin ite pleural effusion. There is no evidence for pulmonary edema. 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 There is moderate cardiomegaly. IMPRESSION: 1. Satisfactory positioning of the endotracheal tube. 2. Moderate cardiomegaly. No evidence for pulmonary edema. 3. No pneumothorax. ACT 112: Negative or not required by law. Electronically signed by: Osbaldo Milner M.D. 02/11/2020 8:00 AM
--- NOTE | 2020-02-11 08:08 | XRay Report ---
XR chest 1V portable HISTORY: Intubation. Follow-up. COMPARISON: Chest 02/10/2020. FINDINGS: The endotracheal tube terminates 5.6 cm from the helio. Nasogastric tube terminates in the proximal stomach. No pleural effusions. No pneumothorax. There is stable cardiomegaly and a cardiac valve prosthesis. Mild central pulmonary vascular congestion without overt edema. IMPRESSION: 1. Satisfactory support line placement. 2. Stable cardiomegaly with mild congestive change. ACT 112: Negative or not required by law. Electronically signed by: Bryan Vee M.D. 02/11/2020 8:07 AM
[2020-02-11] MEDS ORDERED: PANTOprazole 40 MG TAB PO SCH (09:00)
[2020-02-11] MEDS: propofoL 1,000 MG/100 ML VIAL IV SCH (09:35)
[2020-02-11] MEDS: FLUTICASONE/VILANTEROL 100/25MCG 14 PUFFS/INHALER INH SCH (09:38)
[2020-02-11] MEDS: UMECLIDINIUM BROMIDE 62.5MCG/BLISTER 7 PUFFS/INHALER INH SCH (09:38)
--- NOTE | 2020-02-11 10:12 | Anesthesiology Progress Note ---
Date of Service February 11, 2020 Anesthesia Post Procedure Vital Signs Vital Signs: Temp Pulse Pulse Resp BP BP BP 02/11/20 08:30 89 02/11/20 08:15 82 02/11/20 08:00 36.8 C 80 130/82 02/11/20 07:45 83 02/11/20 07:34 78 18 02/11/20 07:30 83 02/11/20 07:15 79 02/11/20 07:01 90 130/75 02/11/20 07:00 80 02/11/20 06:00 80 18 117/47 L 02/11/20 05:00 90 79 18 109/45 L 02/11/20 04:00 36.4 C L 77 16 112/45 L 02/11/20 03:00 74 16 97/40 L 02/11/20 02:00 77 82 17 130/51 L 02/11/20 00:00 36.4 C L 84 87 16 105/44 L 106/46 L 02/10/20 23:43 93 H 19 02/10/20 23:00 84 18 125/51 L 02/10/20 22:11 100 H 16 113/58 L 125/53 L 02/10/20 21:05 84 16 112/58 L 02/10/20 20:40 78 16 90/61 L 02/10/20 20:25 79 16 101/45 L 02/10/20 20:20 88 16 81/45 L 02/10/20 20:00 36.2 C L 94 H 87 16 118/50 L 02/10/20 19:51 86 16 81/38 L 02/10/20 19:41 90 16 93/38 L 02/10/20 19:31 36.2 C L 86 16 117/50 L 02/10/20 18:04 37.4 C 85 16 107/84 02/10/20 16:50 94 H 20 02/10/20 16:45 91 H 21 98/53 L 02/10/20 16:40 99 H 26 H 02/10/20 16:31 94 H 26 H 02/10/20 16:30 107 H 31 H 99/77 L 02/10/20 16:20 99 H 30 H 02/10/20 16:15 82 33 H 122/52 L 02/10/20 16:10 86 26 H 02/10/20 16:01 93 H 30 H 02/10/20 16:00 93 H 29 H 74/49 L 02/10/20 15:50 107 H 29 H 02/10/20 15:45 92 H 23 87/75 L 02/10/20 15:40 94 H 29 H 02/10/20 15:31 98 H 20 02/10/20 15:30 92 H 27 H 106/55 L 02/10/20 15:20 97 H 30 H 02/10/20 15:15 98 H 31 H 93/58 L 02/10/20 15:10 106 H 29 H 02/10/20 15:02 107 H 19 02/10/20 15:01 109 H 35 H 113/78 02/10/20 15:00 102 H 27 H 02/10/20 14:50 94 H 29 H 02/10/20 14:48 105 H 29 H 111/56 L 02/10/20 14:46 112 H 35 H 02/10/20 14:26 103 H 34 H 102/55 L 02/10/20 14:20 105 H 32 H 02/10/20 14:17 103 H 20 87/61 L 02/10/20 14:16 28 H 76/61 L 02/10/20 14:10 27 H 02/10/20 14:01 28 H 89/35 L 02/10/20 14:00 31 H 02/10/20 13:50 37 H 02/10/20 13:47 36 H 90/58 L 02/10/20 13:46 32 H 78/54 L 02/10/20 13:40 33 H 02/10/20 13:30 33 H 02/10/20 13:20 33 H 02/10/20 13:10 34 H 02/10/20 13:01 36 H 02/10/20 13:00 37 H 110/80 02/10/20 12:50 111 H 35 H 02/10/20 12:45 127 H 26 H 98/58 L 02/10/20 12:40 108 H 30 H 02/10/20 12:31 122 H 36 H 02/10/20 12:30 122 H 34 H 108/81 02/10/20 12:27 115 H 36 H 106/88 02/10/20 12:20 115 H 35 H 02/10/20 12:11 127 H 30 H 02/10/20 11:50 36.5 C 127 H 38 H Pulse Ox 02/11/20 08:30 97 02/11/20 08:15 97 02/11/20 08:00 98 02/11/20 07:45 97 02/11/20 07:34 96 02/11/20 07:30 96 02/11/20 07:15 96 02/11/20 07:01 97 02/11/20 07:00 96 02/11/20 06:00 98 02/11/20 05:00 97 02/11/20 04:00 95 02/11/20 03:00 98 02/11/20 02:00 97 02/11/20 00:00 97 02/10/20 23:43 97 02/10/20 23:00 97 02/10/20 22:11 97 02/10/20 21:05 97 02/10/20 20:40 97 02/10/20 20:25 97 02/10/20 20:20 99 02/10/20 20:00 99 02/10/20 19:51 99 02/10/20 19:41 100 02/10/20 19:31 100 02/10/20 18:04 100 02/10/20 16:50 100 02/10/20 16:45 100 02/10/20 16:40 100 02/10/20 16:31 97 02/10/20 16:30 100 02/10/20 16:20 98 02/10/20 16:15 93 02/10/20 16:10 96 02/10/20 16:01 100 02/10/20 16:00 100 02/10/20 15:50 100 02/10/20 15:45 100 02/10/20 15:40 100 02/10/20 15:31 99 02/10/20 15:30 100 02/10/20 15:20 02/10/20 15:15 100 02/10/20 15:10 100 02/10/20 15:02 89 L 02/10/20 15:01 99 02/10/20 15:00 93 02/10/20 14:50 99 02/10/20 14:48 87 L 02/10/20 14:46 02/10/20 14:26 98 02/10/20 14:20 98 02/10/20 14:17 97 02/10/20 14:16 98 02/10/20 14:10 98 02/10/20 14:01 97 02/10/20 14:00 96 02/10/20 13:50 95 02/10/20 13:47 95 02/10/20 13:46 98 02/10/20 13:40 97 02/10/20 13:30 98 02/10/20 13:20 97 02/10/20 13:10 97 02/10/20 13:01 97 02/10/20 13:00 88 L 02/10/20 12:50 97 02/10/20 12:45 87 L 02/10/20 12:40 96 02/10/20 12:31 98 02/10/20 12:30 98 02/10/20 12:27 98 02/10/20 12:20 98 02/10/20 12:11 90 02/10/20 11:50 83 L Notes Mental Status: see notes below Patient Amnestic to Procedure: Yes Nausea / Vomiting: adequately controlled Pain: adequately controlled Airway Patency, RR, SpO2: stable & adequate BP & HR: stable & adequate Hydration State: stable & adequate Anesthetic Complications: no major complications apparent Notes: Decision to leave patient intubated after surgery due to potential for worsening sepsis. Currently intubated and sedated in ICU with Fentanyl gtt. No complications related to anesthesia care.
[2020-02-11] MEDS ORDERED: D5W AND 1/2NSS 1,000 ML IV SCH (10:30)
[2020-02-11] MEDS ORDERED: ACETAMINOPHEN 1,000 MG/100 ML VIAL IV PRN (10:45)
--- NOTE | 2020-02-11 11:14 | Critical Care Progress Note ---
Date of Service February 11, 2020 Assessment & Plan (1) Admitted to intensive care unit: Reason Critically Ill: 79-year-old male with acutely perforated gallbladder requiring emergent laparoscopic evaluation with abdominal washout and cholecystostomy placement requiring close hemodynamic monitoring status post intra-abdominal surgery. Patient with acute renal failure with underlying cardi ac illnesses requiring close hemodynamic monitoring, judicial use of IV fluid, pressure support, and ventilator management. NEURO - CAM ICU: Negative Sedation: Propofol Pain: Fentanyl drip Altered mental status: Apparently per initial presentation. CT head unremarkable. Likely secondary to metabolic encephalopathy in the setting of severe sepsis with septic shock, significant infection, acute renal failure, etc. CARDIAC/VASCULAR - --NSTEMI: Type 2 in the setting of significant metabolic demand. EKG w/o acute ST elevations. Trend Troponin. --A-Fib w/ RVR: Chronic. On Eliquis at home Continue with heparin the patient is in the hospital for possible further interventions from surgery -- HTN, HLD, CHF: Restart home Rx as clinical picture improves. Monitor on telemetry. RESPIRATORY - -- VDRF Postop from sepsis as well as YANIRA Continue with ventilatory support Keep RASS -1 Daily sedation holidays and SBT's Chlorhexidine mouthwash --COPD/Pulm HTN: Continue home inhalers/nebs. GI/NUTRITION - --Gallbladder Perforation: s/p Laparoscopic Abdominal Washing, Cholecystostomy tube placement, Subhepatic/Pelvic drain placement. 02/10/2020 Continue to cover w/ IV Zosyn. Surgery on board RENAL/LYTES - -- YANIRA Likely prerenal Improving Monitor BUN/creatinine Avoid nephrotoxic medications Strict ins and outs - Mi in place - Strict I&Os. h/o BPH ENDO - Pre-DM Continue with ICU hyperglycemia protocol HEME - Stable H&H Monitor H&H ID - -- Severe Sepsis w/ Septic Shock: s/s Gallbladder Perforation. Source control via surgical intervention/washout w/ Cholecystostomy tube placement on 02/10/2020 Continue w/ IV Zosyn. Procalcitonin: 7.7--> 5.83 Follow-up culture LINES/IV ACCESS - Mi ET Tube OG Cholecystostomy tube Subhepatic Drain Pelvic Drain RIGHT Femoral CVL RIGHT Femoral A-line --Prophylaxis VTE: Heparin drip GI: Protonix Lines: Right femoral TLC and Arterial, positive Mi, cholecystostomy tube, subhepatic drain and pelvic drain Diet: N.p.o. Plan: In/out: +2822, urine output 2265 Patient on low-dose vasopressors likely from the sedation that he is getting. Following commands. Good effort on pressure support. Trial of extubation today. Continue with heparin drip. Monitor H&H. Titrated off vasopressors later today. Change IV fluids to D5 half at 40 cc an hour. Continue with antibiotics. I have personally spent 38 minutes of critical care time in the direct management of this patient. This is a life/limb threatening event. This includes time spent evaluating patient, direct bedside care, chart review, placing orders, interpretation of diagnostic studies, discussion with consultants, patient, and family members, as well as other required patient management activities. This time is exclusive of all separately billable procedures, and teaching time and separate from and in addition to any other critical care service time. Please note the above document was generated using voice recognition software. It may contain grammatical, syntax or spelling errors. (2) Perforated gallbladder: (3) Acute renal failure: (4) Atrial fibrillation with rapid ventricular response: (5) Elevated LFTs: Admission and Anticipated Discharge Date Admission Date: February 10, 2020 Subjective Patient seen and examined at bedside. No acute distress, no adverse events overnight since coming to the ICU. Patient had laparotomy and wash yesterday in the OR. At the time of examination patient was on 5 propofol and 50 of fentanyl, on Levophed 0.05. Patient was awake and alert. Breathing over the vent. Following commands. Denied any headache, no shortness of breath. Review of Systems Review of Systems: All systems reviewed & are unremarkable except as noted in Subjective Physical Exam Physical Exam: Constitutional: No acute distress HEENT: EOMI, PERRLA, positive ETT Respiratory system: Decreased air entry bilaterally, no wheeze, no rhonchi, mild crackles bilateral lower lobes CVS: S1-S2 positive, no murmurs or gallops Abdomen: Soft, positive epigastric and right upper quadrant tenderness, no rebound, positive bowel sounds x4, right upper quadrant drain in place Extremities: +2 pulses bilaterally radialis/ dorsalis pedis, no cyanosis, no edema Neuro: Awake alert, following commands Psych: Normal mood and affect G/U: Positive Mi Skin: no rashes, warm and dry Lymphatic: no cervical or axillary lymphadenopathy Results & Data Results & Data ([facility]) Vital Signs (Past 12 Hours) Vital Signs Temp Pulse Pulse Resp BP BP BP 02/11/20 08:30 89 02/11/20 08:15 82 02/11/20 08:00 36.8 C 80 130/82 02/11/20 07:45 83 02/11/20 07:34 78 18 02/11/20 07:30 83 02/11/20 07:15 79 02/11/20 07:01 90 130/75 02/11/20 07:00 80 02/11/20 06:00 80 18 117/47 L 02/11/20 05:00 90 79 18 109/45 L 02/11/20 04:00 36.4 C L 77 16 112/45 L 02/11/20 03:00 74 16 97/40 L 02/11/20 02:00 77 82 17 130/51 L 02/11/20 00:00 36.4 C L 84 87 16 105/44 L 106/46 L 02/10/20 23:43 93 H 19 Pulse Ox 02/11/20 08:30 97 02/11/20 08:15 97 02/11/20 08:00 98 02/11/20 07:45 97 02/11/20 07:34 96 02/11/20 07:30 96 02/11/20 07:15 96 02/11/20 07:01 97 02/11/20 07:00 96 02/11/20 06:00 98 02/11/20 05:00 97 02/11/20 04:00 95 02/11/20 03:00 98 02/11/20 02:00 97 02/11/20 00:00 97 02/10/20 23:43 97 02/11/20 05:01 02/11/20 05:01 Coding Level of Care Code Critical Care 1st 30-74 mins Diagnoses Admitted to intensive care unit Z78.9 Perforated gallbladder K82.2 Acute renal failure N17.9 Atrial fibrillation with rapid ventricular response I48.91 Elevated LFTs R79.89 Time Spent (min) 38
[2020-02-11] MEDS: PANTOprazole 40 MG in SYRINGE 0 ML IV SCH (11:50)
[2020-02-11 13:28] LABS: Partial Thromboplastin Time 112.9 Seconds (21.0-31.0)
--- NOTE | 2020-02-11 15:23 | Hospitalist Progress Note ---
Date of Service February 11, 2020 Assessment & Plan (1) Perforated gallbladder: Gil Rodriguez is a 79 yo male with h/o CAD, chronic systolic CHF, chronic a- fib and COPD who was admitted to the ICU on 02/10/2020 after emergent laparoscopic surgery for perforated gallbladder. Currently receiving care in ICU and I am following peripherally. - s/p laparoscopic abdominal washing, cholecystostomy tube placement, subhepatic/pelvic drains on 02/09 - continue IV Zosyn - surgery following (2) Sepsis: - severe sepsis with septic shock s/p gallbladder perforation - s/p source control via emergent surgery as stated above - Procalcitonin 7.7 --> 5.83 - continue Levophed and wean as tolerated - follow blood cx - trend CBC daily - IV Zosyn as above (3) Acute kidney injury: - suspect pre-renal with BUN:Cr 29.7 - improving: Cr 2.59 --> 1.88 --> 1.64 - continue IVF with D51/2NS at 44cc/hr - trend BMP (4) Atrial fibrillation: - chronic, on Eliquis 5 mg PO BID and Toprol 100 mg PO QAM at home - hold meds and continue Heparin gtt for now (5) Elevated troponin: - suspect 2/2 demand ischemia due to sepsis and chronic CHF - downtrending .055 --> .018 (6) Chronic systolic (congestive) heart failure: - BNP 7302 on 02/09 - cautious IVFs as mentioned above - follow clinically for hypervolemia - re-start home meds as clinical status improves (7) Chronic obstructive pulmonary disease: - continue home inhalers and nebulizers (8) Hypertension: - re-start home meds as clinical status improves FEN/GI: NPO DVT Prophylaxis: Heparin gtt GI Prophylaxis: Protonix 40 mg IV daily Code Status: DNR/DNI Disposition: ICU Admission and Anticipated Discharge Date Admission Date: February 10, 2020 Supervising Physician Co-Signing Physician Notes Attending attestation Pt seen and examined in concert with Dr. Quarles. In agreement with the documen brennan findings as noted in the resident documentation with any exceptions or additions as noted here. 79 y/o male h/o chronic atrial fibrillation, CAD, systolic CHF, COPD p/w perforated gallbladder s/p surgical intervention POD 1 Pt reports feeling better than initial presentation, though still fatigued. Pain well controlled on present regimen with mild nausea only. On examination, S1/S2 nl no MCG. decreased BS bilaterally with mild rales at bases. Abd +ve epigastric and RUQ TTP, BS nl. Suspected gram neg sepsis in the setting of perforated gallbladder s/p laparoscopic abd wash, cholecystostomy tube, drain placement - surgical consultation - continue Zosyn, weaning Levophed. F/U BCx. YANIRA - improving. Trend Cr Atrial fibrillation, chronic - on heparin for now. Holding home toprol and a pixaban Demand ischemia - Troponin downtrending. Else see resident documentation as noted. Subjective TRPI since cholecystostomy tube placement in OR and admission to ICU. Extubated this AM and satting well with Oxymask in place. Reports improved abdominal pain but overall fatigue. Review of Systems Constitutional: no fever and no chills Respiratory: no dyspnea Cardiovascular: no chest pain and no palpitations Gastrointestinal: no vomiting Physical Exam Constitutional: no acute distress Oxymask in place Respiratory: normal respiratory effort Auscultation: + diminished lung sounds (with decreased air entry bilaterally); no rales, no rhonchi and no wh eezes Cardiovascular: RRR, no murmur, no edema Gastrointestinal (Abdomen): Inspection/Auscultation: normal bowel sounds Percussion/Palpation: + abdomen tender (epigastric and RUQ tenderness) RUQ drain in place - draining dark bilious fluid Psychiatric: Orientation: alert Genitourinary: sutton in place Results & Data Results & Data ([facility]) Vital Signs (Past 12 Hours) Vital Signs Temp Pulse Pulse Resp BP BP Pulse Ox 02/11/20 14:02 76 19 97 02/11/20 14:00 90 19 97 02/11/20 13:30 86 17 96 02/11/20 13:00 87 18 97 02/11/20 12:30 99 H 15 97 02/11/20 12:01 103 H 21 148/101 H 96 02/11/20 12:00 107 H 27 H 98 02/11/20 11:30 98 H 97 02/11/20 11:00 82 147/76 H 97 02/11/20 10:30 93 H 97 02/11/20 10:00 94 H 146/77 H 97 02/11/20 09:30 92 H 99 02/11/20 09:00 90 114/66 98 02/11/20 08:30 89 97 02/11/20 08:15 82 97 02/11/20 08:00 36.8 C 80 130/82 98 02/11/20 07:45 83 97 02/11/20 07:34 78 18 96 02/11/20 07:30 83 96 02/11/20 07:15 79 96 02/11/20 07:01 90 130/75 97 02/11/20 07:00 80 96 02/11/20 06:00 80 18 117/47 L 98 02/11/20 05:00 90 79 18 109/45 L 97 02/11/20 04:00 36.4 C L 77 16 112/45 L 95 Resident Activity Tracking Resident Involvement: Resident Care Provided Care Provided: Adult Hospital Medicine (1) Chronic obstructive pulmonary disease COPD type: unspecified COPD Qualified Code(s): J44.9 - Chronic obstructive pulmonary disease, unspecified
[2020-02-11 20:19] LABS: Partial Thromboplastin Ratio 3.7
[2020-02-11 20:28] LABS: Partial Thromboplastin Time 102.1 Seconds (21.0-31.0)
[2020-02-11] MEDS: ATORVASTATIN 20 MG TAB PO SCH (20:50)
[2020-02-11] MEDS: NOREPINEPHRINE BIT INJ 8 MG in DEXTROSE 5% 500 ML IV SCH (20:50)
[2020-02-12] MEDS: INSULIN ASPART 100 UNITS/ML 3 ML PEN SC SCH ×5 (00:20→21:35)
[2020-02-12] MEDS: HEPARIN SODIUM/DEXTROSE 25,000 UNITS/500 ML BAG IV SCH ×2 (03:05→05:57)
[2020-02-12 03:46] LABS: Hemoglobin 10.4 g/dL (14.0-18.0); Immature Granulocytes # (auto) 0.02 K/uL (0.00-0.02); Immature Granulocytes % (auto) 0.3 %; Lymphocytes # (auto) 0.25 K/uL (1.2-3.4); Lymphocytes % (auto) 3.6 %; Mean Corpuscular Hemoglobin 29.8 pg (25-34); Mean Corpuscular Hgb Conc 31.5 g/dL (32-36); Mean Corpuscular Volume 94.6 fL (80-100); Mean Platelet Volume 11.4 fL (7.4-10.4); Monocytes # (auto) 0.54 K/uL (0.11-0.59); Monocytes % (auto) 7.8 %; Neutrophils # (auto) 6.08 K/uL (1.4-6.5); Neutrophils % (auto) 88.3 %; Platelet Count 116 K/uL (130-400); RDW Coefficient of Variation 14.4 % (11.5-14.5); RDW Standard Deviation 49.5 fL (36.4-46.3); Red Blood Count 3.49 M/uL (4.7-6.1); White Blood Count 6.89 K/uL (4.8-10.8)
[2020-02-12 04:13] LABS: Partial Thromboplastin Ratio 3.8
[2020-02-12 04:25] LABS: Partial Thromboplastin Time 105.8 Seconds (21.0-31.0)
[2020-02-12 04:36] LABS: BUN Creatinine Ratio 33.7 (10-20); Calcium 6.6 mg/dl (8.5-10.1); Creatinine Clr Calc Pharmacy 71.8 ml/min; Est GFR (African American) 95.6; Est GFR (Non-African American) 82.5; Magnesium 1.9 mg/dl (1.8-2.4); Phosphorus 1.9 mg/dl (2.5-4.9); Potassium 2.9 mmol/L (3.5-5.1)
[2020-02-12] MEDS ORDERED: POTASSIUM PHOS 3 MMOL/1 ML INFUSION IV STA (04:41)
[2020-02-12] MEDS: PIPERACILLIN/TAZOBACTAM 3.375 GM in DEXTROSE 5% 100 ML IV SCH ×2 (04:42→12:48)
[2020-02-12] MEDS ORDERED: CALCIUM CHLORIDE 10% 1,000 MG in SODIUM CHLORIDE 0.9% 50 ML IV STA (04:42)
[2020-02-12] MEDS ORDERED: POTASSIUM PHOSPHATE 24 MMOL in SODIUM CHLORIDE 0.9% 500 ML IV ONE (05:00)
[2020-02-12] MEDS: POTASSIUM CHLORIDE / WTR 20 MEQ/100 ML PLCT IV SCH ×3 (05:05→09:09)
--- NOTE | 2020-02-12 06:58 | Hospitalist Progress Note ---
Date of Service February 12, 2020 Assessment & Plan (1) Perforated gallbladder: Gil Rodriguez is a 79 yo male with h/o CAD, chronic systolic CHF, chronic a- fib and COPD who was admitted to the ICU on 02/10/2020 after emergent laparoscopic surgery for perforated gallbladder. Transferred to med/surg with tele today (02/11). - s/p laparoscopic abdominal washing, cholecystostomy tube placement, subhepatic/pelvic drains on 02/09 - abdominal wound cx on 02/09 positive for bahena-susceptible Klebsiella - IV Zosyn transitioned to Ciprofloxacin 400mg IV BID and Flagyl 500 mg IV TID on 02/11 - surgery following - does not recommend further intervention (2) Sepsis: - severe sepsis with septic shock s/p gallbladder perforation - s/p source control via emergent surgery as stated above - Levophed d/c'd on 02/10 overnight - maintaining adequate BPs - Procalcitonin 7.7 --> 5.83 --> 3.3 (02/11) - blood cx no growth after 48 hrs - trend CBC daily - IV Zosyn transitioned to Cipro/Flagyl as mentioned above (3) Acute kidney injury: - suspect pre-renal with BUN:Cr 33.7 - resolved s/p IVFs: Cr 2.59 --> 1.88 --> 1.64 --> 0.89 (02/11) - d/c'd IVFs on 02/11 - trend BMP (4) Atrial fibrillation: - chronic, on Eliquis 5 mg PO BID and Toprol 100 mg PO QAM at home - hold meds and continue Heparin gtt for now; plan for transition to Eliquis tomorrow AM pending improved PO intake today (5) Elevated troponin: - suspect 2/2 demand ischemia due to sepsis and chronic CHF - downtrending .055 --> .018 (6) Chronic systolic (congestive) heart failure: - BNP 7302 on 02/09 - cautious IVFs as mentioned above - follow clinically for hypervolemia - re-start home meds on 02/12 in AM: Lisinopril 30 mg PO QAM and Toprol XL 100 mg PO QAM (7) Chronic obstructive pulmonary disease: - continue home inhalers and nebulizers (8) Hypertension: - re-start home meds on 02/12 as mentioned above FEN/GI: NPO DVT Prophylaxis: Heparin gtt GI Prophylaxis: Protonix 40 mg IV daily Code Status: DNR/DNI Disposition: ICU Admission and Anticipated Discharge Date Admission Date: February 10, 2020 Supervising Physician Co-Signing Physician Notes Attending attestation Pt seen and examined in concert with Dr. Quarles. In agreement with the documented findings as noted in the resident documentation with any exceptions or additions as noted here. 79 y/o male h/o chronic atrial fibrillation, CAD, systolic CHF, COPD p/w perforated gallbladder s/p surgical intervention POD 1 Continued improvement in fatigue with abdominal pain at surgical site with movement well controlled. Single episode of lightheadedness with position change with repeat lab studies without concerning change. On examination, S1/S2 nl no MCG. decreased BS bilaterally with mild rales at bases. Abd +ve epigastric and RUQ TTP, BS nl. Drains in place with sanguinous drainage without skin erythema Suspected gram neg sepsis in the setting of perforated gallbladder s/p laparoscopic abd wash, cholecystostomy tube, drain placement - surgical consultation - continue Zosyn, for transition to cipro/flagyl, likely tomorrow. F/U BCx. Episode of lightheadedness - considering recent surgical intervention and serous drainage, labs repeated without worsening H/H and immediate resolution of symptoms. Monitor for further sx. Atrial fibrillation, chronic - on heparin for now. Holding home toprol and apixaban YANIRA - resolved Demand ischemia - downtrended troponin with stable from previous admissions Else see resident documentation as noted. Subjective NAEO. D/c'd Levophed overnight. Duo nebs x1 this AM for wheezing. Patient reports doing well and denies SOB although reports occasional productive cough after duo nebs. Reports improved abdominal pain. Denies fever/chills, chest pain/palpitations, N/V. Review of Systems Review of Systems: Pertinent positives and negatives mentioned in HPI Physical Exam Constitutional: no acute distress Respiratory: normal respiratory effort Auscultation: + diminished lung sounds (bilat lung bases, with decreased air entry); no rales, no rhonchi and no wheezes Cardiovascular: RRR, no murmur, no edema Gastrointestinal (Abdomen): Inspection/Auscultation: normal bowel sounds Percussion/Palpation: + abdomen tender (epigastric and RUQ tenderness) cholecystostomy tube and drains in place with overlying dressings c/d/i Psychiatric: Orientation: alert Results & Data Results & Data ([facility]) Vital Signs (Past 12 Hours) Vital Signs Temp Pulse Resp BP Pulse Ox 02/12/20 06:30 96 H 17 99 02/12/20 06:00 86 18 151/79 H 99 02/12/20 05:00 96 H 20 98 02/12/20 04:00 36.5 C 83 16 120/64 100 02/12/20 03:00 80 21 99 02/12/20 02:00 81 17 119/65 99 02/12/20 01:00 84 14 99 02/12/20 00:00 90 17 126/66 99 02/11/20 23:00 85 20 98 02/11/20 22:00 110 H 21 142/76 H 93 02/11/20 21:30 108 H 18 94 02/11/20 21:00 92 H 15 98 02/11/20 20:30 91 H 19 98 02/11/20 20:01 86 23 120/71 98 02/11/20 20:00 36.5 C 02/11/20 19:30 90 16 98 02/11/20 19:00 92 H 18 100 Resident Activity Tracking Resident Involvement: Resident Care Provided Care Provided: Adult Hospital Medicine (1) Chronic obstructive pulmonary disease COPD type: unspecified COPD Qualified Code(s): J44.9 - Chronic obstructive pulmonary disease, unspecified
[2020-02-12] MEDS: FLUTICASONE/VILANTEROL 100/25MCG 14 PUFFS/INHALER INH SCH (07:34)
[2020-02-12] MEDS: UMECLIDINIUM BROMIDE 62.5MCG/BLISTER 7 PUFFS/INHALER INH SCH (07:34)
--- NOTE | 2020-02-12 08:00 | Surgery Progress Note ---
Date of Service February 12, 2020 Assessment & Plan (1) Perforated gallbladder: Patient here with sepsis found to have perforated gallbladder; now POD#2 abdominal washout and cholecystostomy tube placement Patient looks well this AM; WBC 6.8, pt afebrile Okay to remove NGT and start on clear liquids this AM Would remove sutton catheter as good urine output Okay to remove arterial line as blood pressures stable & pt not requiring pressors From our standpoint patient could be transitioned from ICU to step-down unit Continue on IV heparin today; if tolerates diet could consider transition to eliquis tomorrow Encourage ongoing ambulation Plan to leave abdominal surgical drains in for now Pt seen and examined with Dr. Buchanan Admission and Anticipated Discharge Date Admission Date: February 10, 2020 Subjective Patient offers no major complaints. He denies abdominal pain at rest or any nausea/vomiting. He is not yet passing flatus. Physical Exam Physical Exam: awake/alert Gastrointestinal (Abdomen): Inspection/Auscultation: + abdominal surgical incision (c/d/i with steri-strips overtop) and + abdominal surgical drain present (AVERY x2 w serosang outpt (non bilious); biliary drain w/dark bilious drainage) Percussion/Palpation: + abdomen tender (some ttp on R side of abd) NGT w light green/yellow drainage Results & Data ([facility]) Vital Signs (Past 12 Hours) Vital Signs Temp Pulse Resp BP Pulse Ox 02/12/20 06:30 96 H 17 99 02/12/20 06:00 86 18 151/79 H 99 02/12/20 05:00 96 H 20 98 02/12/20 04:00 36.5 C 83 16 120/64 100 02/12/20 03:00 80 21 99 02/12/20 02:00 81 17 119/65 99 02/12/20 01:00 84 14 99 02/12/20 00:00 90 17 126/66 99 02/11/20 23:00 85 20 98 02/11/20 22:00 110 H 21 142/76 H 93 02/11/20 21:30 108 H 18 94 02/11/20 21:00 92 H 15 98 02/11/20 20:30 91 H 19 98 02/11/20 20:01 86 23 120/71 98 02/11/20 20:00 36.5 C PG Care Time/CCT Total # of Minutes Spent Total Time Spent with Patient: Total time spent is greater than 50% in coordination of care (as documented) at patient's floor/unit and/or counseling patient: Coding Level of Care Code None Diagnoses Perforated gallbladder K82.2
[2020-02-12] MEDS ORDERED: D5W AND 1/2NSS + 20MEQ KCL 20 MEQ/1,000 ML BAG IV SCH (10:30)
[2020-02-12 11:57] LABS: Hematocrit (blood only) 38.3 % (42-52); Hemoglobin 12.5 g/dL (14.0-18.0)
[2020-02-12] MEDS: PANTOprazole 40 MG in SYRINGE 0 ML IV SCH (11:58)
[2020-02-12 12:31] LABS: Partial Thromboplastin Time 56.1 Seconds (21.0-31.0)
[2020-02-12] MEDS ORDERED: INSULIN ASPART 100 UNITS/ML 3 ML PEN SC SCH (16:30)
[2020-02-12] MEDS: CIPROFLOXACIN / D5W 400 MG/200 ML BAG IV SCH (18:20)
[2020-02-12] MEDS: metroNIDAZOLE 500 MG/100 ML BAG IV SCH (18:21)
--- NOTE | 2020-02-12 19:35 | Critical Care Progress Note ---
Date of Service February 12, 2020 Assessment & Plan (1) Admitted to intensive care unit: Reason Critically Ill: 79-year-old male with acutely perforated gallbladder requiring emergent laparoscopic evaluation with abdominal washout and cholecystostomy placement requiring close hemodynamic monitoring status post intra-abdominal surgery. Patient with acute renal failure with underlying cardi ac illnesses requiring close hemodynamic monitoring, judicial use of IV fluid, pressure support, and ventilator management. NEURO - CAM ICU: Negative Apparently per initial presentation. CT head unremarkable. CARDIAC/VASCULAR - --NSTEMI: Type 2 in the setting of significant metabolic demand. EKG w/o acute ST elevations. Trend Troponin. --A-Fib w/ RVR: Chronic. On Eliquis at home Continue with heparin the patient is in the hospital for possible further interventions from surgery -- HTN, HLD, CHF: Restart home Rx as clinical picture improves. Monitor on telemetry. RESPIRATORY - --S/p VDRF Postop from sepsis as well as YANIRA S/p extubation 02/11/2020 --COPD/Pulm HTN: Continue home inhalers/nebs. GI/NUTRITION - --Gallbladder Perforation: s/p Laparoscopic Abdominal Washing, Cholecystostomy tube placement, Subhepatic/Pelvic drain placement. 02/10/2020 Continue to cover w/ IV Zosyn. Surgery on board RENAL/LYTES - -- YANIRA Likely prerenal Improving Monitor BUN/creatinine Avoid nephrotoxic medications Strict ins and outs --Hypokalemia with hypophosphatemia Being replaced - Mi in place - Strict I&Os. h/o BPH ENDO - Pre-DM Continue with ICU hyperglycemia protocol HEME - Stable H&H Monitor H&H ID - -- Severe Sepsis w/ Septic Shock: s/s Gallbladder Perforation. Source control via surgical intervention/washout w/ Cholecystostomy tube placement on 02/10/2020 Continue w/ IV Zosyn. Procalcitonin: 7.7--> 5.83 Follow-up culture LINES/IV ACCESS - Mi ET Tube OG Cholecystostomy tube Subhepatic Drain Pelvic Drain RIGHT Femoral CVL RIGHT Femoral A-line --Prophylaxis VTE: Heparin drip GI: Protonix Lines: Right femoral TLC and Arterial, positive Mi, cholecystostomy tube, subhepatic drain and pelvic drain Diet: N.p.o. Plan: In/out: +1685, urine output 2310 Repeat H&H later today. Procalcitonin is trending down. DC the femoral line L as well as a femoral arterial line. DC Mi. We will DC NGT. Patient is hemodynamically stable to be downgraded to the medical floor Culture on the belly is growing Klebsiella which is pansensitive. Currently I would recommend to continue with Zosyn for anaerobic coverage. Continue with heparin drip. Can transition to p.o. Eliquis as of tomorrow. Follow-up surgery recommendation. Please note the above document was generated using voice recognition software. It may contain grammatical, syntax or spelling errors. (2) Perforated gallbladder: (3) Acute renal failure: (4) Atrial fibrillation with rapid ventricular response: (5) Elevated LFTs: Admission and Anticipated Discharge Date Admission Date: February 10, 2020 Subjective Patient seen and examined at bedside. No acute distress, no adverse events overnight. Complains of mild abdominal pain. No nausea or vomiting. Tolerating diet. No chest pain, no shortness of breath. No dizziness, no headache. Afebrile. Review of Systems Review of Systems: All systems reviewed & are unremarkable except as noted in Subjective Physical Exam Physical Exam: Constitutional: No acute distress HEENT: EOMI, PERRLA Respiratory system: Decreased air entry bilaterally, no wheeze, no rhonchi, mild crackles bilateral lower lobes CVS: S1-S2 positive, no murmurs or gallops Abdomen: Soft, mild epigastric and right upper quadrant tenderness, no rebound, positive bowel sounds x4, right upper quadrant drain in place Extremities: +2 pulses bilaterally radialis/ dorsalis pedis, no cyanosis, no edema Neuro: Awake alert, following commands Psych: Normal mood and affect G/U: Positive Mi Skin: no rashes, warm and dry Lymphatic: no cervical or axillary lymphadenopathy Results & Data Results & Data ([facility]) Vital Signs (Past 12 Hours) Vital Signs Temp Pulse Pulse Resp BP BP BP 02/12/20 19:08 36.5 C 108 H 18 174/91 H 02/12/20 16:00 105 H 02/12/20 15:35 36.5 C 116 H 18 170/80 H 02/12/20 13:11 36.5 C 115 H 20 154/75 H 02/12/20 12:00 113 H 24 153/79 H 02/12/20 11:00 126 H 25 H 140/74 11/04/20 10:00 117 H 30 H 144/84 H 02/12/20 09:50 142 H 34 H 150/75 H 02/12/20 09:43 116 H 27 H 151/86 H 02/12/20 09:00 36.8 C 02/12/20 08:00 112 H 20 144/92 H Pulse Ox 02/12/20 19:08 91 02/12/20 16:00 02/12/20 15:35 93 02/12/20 13:11 92 02/12/20 12:00 93 02/12/20 11:00 93 02/12/20 10:00 94 02/12/20 09:50 87 L 02/12/20 09:43 94 02/12/20 09:00 02/12/20 08:00 92 02/12/20 11:32 02/12/20 03:28 Coding Level of Care Code 25931 Subseq Hosp Care Lvl 3 Diagnoses Admitted to intensive care unit Z78.9 Perforated gallbladder K82.2 Acute renal failure N17.9 Atrial fibrillation with rapid ventricular response I48.91 Elevated LFTs R79.89
[2020-02-12] MEDS: ATORVASTATIN 20 MG TAB PO SCH (21:22)
[2020-02-12 23:14] LABS: Hematocrit (blood only) 36.8 % (42-52); Immature Granulocytes # (auto) 0.03 K/uL (0.00-0.02); Immature Granulocytes % (auto) 0.4 %; Lymphocytes # (auto) 0.31 K/uL (1.2-3.4); Mean Corpuscular Hemoglobin 30.8 pg (25-34); Mean Corpuscular Hgb Conc 32.6 g/dL (32-36); Mean Corpuscular Volume 94.4 fL (80-100); Monocytes # (auto) 0.84 K/uL (0.11-0.59); Monocytes % (auto) 10.8 %; Neutrophils # (auto) 6.63 K/uL (1.4-6.5); Neutrophils % (auto) 84.8 %; Platelet Count 145 K/uL (130-400); RDW Coefficient of Variation 14.4 % (11.5-14.5); RDW Standard Deviation 49.1 fL (36.4-46.3); White Blood Count 7.81 K/uL (4.8-10.8)
[2020-02-13] MEDS: metroNIDAZOLE 500 MG/100 ML BAG IV SCH ×2 (01:57→10:50)
[2020-02-13] MEDS: CIPROFLOXACIN / D5W 400 MG/200 ML BAG IV SCH (05:53)
--- NOTE | 2020-02-13 06:53 | Hospitalist Progress Note ---
Date of Service February 13, 2020 Assessment & Plan (1) Perforated gallbladder: Gil Rodriguez is a 79 yo male with h/o CAD, chronic systolic CHF, chronic a- fib and COPD who was admitted to the ICU on 02/10/2020 after emergent laparoscopic surgery for perforated gallbladder. Transferred to med/surg with tele on 02/11. - s/p laparoscopic abdominal washing, cholecystostomy tube placement, subhepatic/pelvic drains on 02/09 - abdominal wound cx on 02/09 positive for bahena-susceptible Klebsiella - IV Zosyn transitioned to IV Cipro/Flagyl on 02/11 --> transitioned to PO Cipro/Flagyl today starting at PM dose - IV Protonix --> PO Protonix today - diet advanced to full - surgery following - does not recommend further intervention (2) Sepsis: - severe sepsis with septic shock s/p gallbladder perforation - s/p source control via emergent surgery as stated above - blood cx no growth after 48 hrs - trend CBC daily - IV Zosyn transitioned to Cipro/Flagyl as mentioned above (3) Atrial fibrillation: - chronic, on Eliquis 5 mg PO BID and Toprol 100 mg PO QAM at home - transition from Heparin gtt to home Eliquis 5 mg PO BID today (4) Chronic systolic (congestive) heart failure: - BNP 7302 on 02/09 - productive cough today --> counseled on IS use to help with mucus plugging - re-started home meds today: Lisinopril 30 mg PO QAM and Toprol XL 100 mg PO QAM - follow clinically for hypervolemia (5) Chronic obstructive pulmonary disease: - continue home inhalers and nebulizers (6) Hypertension: - started home meds today as mentioned above FEN/GI: Heart Healthy DVT Prophylaxis: Eliquis 5 mg PO BID GI Prophylaxis: Protonix 40 mg PO daily Code Status: DNR/DNI Disposition: Med/surg with tele, possible d/c to home tomorrow pending PT eval Admission and Anticipated Discharge Date Admission Date: February 10, 2020 Supervising Physician Co-Signing Physician Notes Attending attestation Pt seen and examined in concert with Dr. Quarles. In agreement with the documented findings as noted in the resident documentation with any exceptions or additions as noted here. 79 y/o male h/o chronic atrial fibrillation, CAD, systolic CHF, COPD p/w perforated gallbladder s/p surgical intervention POD 1 Decreased localised RUQ abd discomfort and resolved nausea with tolerance of clears without complaint.Reports no f/c. On examination, S1/S2 nl no MCG. BS decreased bilaterally at bases. Abd +ve epigastric and RUQ TTP, BS nl. Drain in place with sanguinous drainage without skin erythema Suspected gram neg sepsis in the setting of perforated gallbladder s/p laparoscopic abd wash, cholecystostomy tube, drain placement - surgical consultation - continue cipro/flagyl with transition to PO. F/U BCx. PPI therapy. Atrial fibrillation, chronic - restart eliquis and metoprolol. monitor Isolated Episode of lightheadedness - resolved and non-recurring. considering recent surgical intervention and serous drainage, labs repeated without worsening H/H and immediate resolution of symptoms. Monitor for further sx. Else see resident documentation as noted. Subjective NAEO. Patient reports doing well overall - passing gas starting last night although no BM yet. Tolerating full liquid diet without N/V or increased abdominal pain. Denies SOB although reports occasional productive cough. Reports improved abdominal pain overall. Denies fever/chills, chest pain/palpitations. Review of Systems Review of Systems: Pertinent positives and negatives mentioned in HPI Physical Exam Constitutional: no acute distress Respiratory: normal respiratory effort Auscultation: + diminished lung sounds (bilat lung bases, with decreased air entry); no rales, no rhonchi and no wheezes Cardiovascular: RRR, no murmur, no edema Gastrointestinal (Abdomen): Inspection/Auscultation: normal bowel sounds Percussion/Palpation: + abdomen tender (epigastric and RUQ tenderness) cholecystostomy tube and drain in place with overlying dressings c/d/i - draining serous fluid Psychiatric: Orientation: alert Results & Data Results & Data ([facility]) Vital Signs (Past 12 Hours) Vital Signs Temp Pulse Pulse Resp BP Pulse Ox 02/13/20 03:24 36.6 C 95 H 18 150/90 H 92 02/12/20 23:00 114 H 02/12/20 22:19 36.8 C 62 18 147/92 H 92 02/12/20 19:08 36.5 C 108 H 18 174/91 H 91 Resident Activity Tracking Resident Involvement: Resident Care Provided Care Provided: Adult Hospital Medicine (1) Chronic obstructive pulmonary disease COPD type: unspecified COPD Qualified Code(s): J44.9 - Chronic obstructive pulmonary disease, unspecified
[2020-02-13 07:31] LABS: Basophils # (auto) 0.01 K/uL (0-0.2); Basophils % (auto) 0.1 %; Hemoglobin 12.2 g/dL (14.0-18.0); Immature Granulocytes # (auto) 0.04 K/uL (0.00-0.02); Immature Granulocytes % (auto) 0.6 %; Lymphocytes # (auto) 0.35 K/uL (1.2-3.4); Lymphocytes % (auto) 5.1 %; Mean Corpuscular Hemoglobin 30.6 pg (25-34); Mean Corpuscular Hgb Conc 32.1 g/dL (32-36); Mean Corpuscular Volume 95.2 fL (80-100); Monocytes # (auto) 0.76 K/uL (0.11-0.59); Monocytes % (auto) 11.1 %; Neutrophils # (auto) 5.66 K/uL (1.4-6.5); Neutrophils % (auto) 83.1 %; Platelet Count 146 K/uL (130-400); RDW Coefficient of Variation 14.4 % (11.5-14.5); RDW Standard Deviation 50.1 fL (36.4-46.3); Red Blood Count 3.99 M/uL (4.7-6.1); White Blood Count 6.82 K/uL (4.8-10.8)
[2020-02-13 07:52] LABS: Partial Thromboplastin Ratio 1.7
--- NOTE | 2020-02-13 07:55 | Surgery Progress Note ---
Date of Service February 13, 2020 Assessment & Plan (1) Perforated gallbladder: Third postoperative day the patient is doing remarkably well from laparoscopic washout and cholecystostomy tube placement We will continue with broad-spectrum antibiotics till the final sensitivity noted and switch him to oral antibiotics His white count is pretty much normal his renal function is improved almost normal Our plan is to take out the number to drain and leave the lateral drain #1 and cholecystostomy tube in place most likely need to be sent home with these tubes From my point of view the patient could be restarted on oral anticoagulation anytime the medical service feels appropriate We will advance diet to full liquid at this time Admission and Anticipated Discharge Date Admission Date: February 10, 2020 Subjective Overall continues to improve he was able to have some liquids yesterday he is passing some flatus with no bowel movements denies any real abdominal pain Physical Exam Physical Exam: Comfortable in bed with no discomfort Patient's #1 Gene drain which is lateral showed minimal bilious drainage The number 2 drain mid subcostal in the pelvis no evidence of any bilious drainage minimal output Cholecystostomy tube continues to have some bloody tinged bile not significant amount The abdomen is soft no localized tenderness Results & Data ([facility]) Vital Signs (Past 12 Hours) Vital Signs Temp Pulse Pulse Resp BP Pulse Ox 02/13/20 03:24 36.6 C 95 H 18 150/90 H 92 02/12/20 23:00 114 H 02/12/20 22:19 36.8 C 62 18 147/92 H 92 PG Care Time/CCT Total # of Minutes Spent Total Time Spent with Patient: Total time spent is greater than 50% in coordination of care (as documented) at patient's floor/unit and/or counseling patient: Coding Level of Care Code None Diagnoses Perforated gallbladder K82.2
[2020-02-13 08:06] LABS: BUN Creatinine Ratio 24.3 (10-20); Calcium 8.7 mg/dl (8.5-10.1); Creatinine Clr Calc Pharmacy 60.3 ml/min; Est GFR (African American) 78.1; Est GFR (Non-African American) 67.4; Magnesium 2.1 mg/dl (1.8-2.4); Potassium 3.6 mmol/L (3.5-5.1)
[2020-02-13 08:07] LABS: Partial Thromboplastin Time 46.4 Seconds (21.0-31.0)
[2020-02-13] MEDS: UMECLIDINIUM BROMIDE 62.5MCG/BLISTER 7 PUFFS/INHALER INH SCH (08:44)
[2020-02-13] MEDS: FLUTICASONE/VILANTEROL 100/25MCG 14 PUFFS/INHALER INH SCH (08:44)
[2020-02-13] MEDS: INSULIN ASPART 100 UNITS/ML 3 ML PEN SC SCH ×4 (08:46→20:56)
[2020-02-13] MEDS: lisinopril 10 MG TAB PO SCH (08:47)
[2020-02-13] MEDS: METOPROLOL SUCC 50MG EXT REL TAB PO SCH (08:47)
[2020-02-13] MEDS: PANTOprazole 40 MG TAB PO SCH (13:14)
[2020-02-13] MEDS: metroNIDAZOLE 500 MG TAB PO SCH ×2 (14:47→20:19)
[2020-02-13] MEDS: CIPROFLOXACIN 500 MG TAB PO SCH (20:19)
[2020-02-13] MEDS: APIXABAN 5 MG TABLET PO SCH (20:19)
[2020-02-13] MEDS: ATORVASTATIN 20 MG TAB PO SCH (20:20)
[2020-02-13] MEDS: HEPARIN SODIUM/DEXTROSE 25,000 UNITS/500 ML BAG IV SCH (23:08)
[2020-02-14 07:10] LABS: Basophils # (auto) 0.01 K/uL (0-0.2); Basophils % (auto) 0.1 %; Eosinophils # (auto) 0.04 K/uL (0-0.5); Eosinophils % (auto) 0.4 %; Hematocrit (blood only) 39.3 % (42-52); Hemoglobin 12.9 g/dL (14.0-18.0); Immature Granulocytes # (auto) 0.04 K/uL (0.00-0.02); Immature Granulocytes % (auto) 0.4 %; Lymphocytes # (auto) 1.08 K/uL (1.2-3.4); Lymphocytes % (auto) 11.8 %; Mean Corpuscular Hemoglobin 30.6 pg (25-34); Mean Corpuscular Hgb Conc 32.8 g/dL (32-36); Mean Corpuscular Volume 93.1 fL (80-100); Mean Platelet Volume 11.7 fL (7.4-10.4); Monocytes # (auto) 0.54 K/uL (0.11-0.59); Monocytes % (auto) 5.9 %; Neutrophils # (auto) 7.41 K/uL (1.4-6.5); Neutrophils % (auto) 81.4 %; Platelet Count 158 K/uL (130-400); RDW Coefficient of Variation 14.4 % (11.5-14.5); RDW Standard Deviation 48.8 fL (36.4-46.3); Red Blood Count 4.22 M/uL (4.7-6.1); White Blood Count 9.12 K/uL (4.8-10.8)
[2020-02-14 07:22] LABS: Partial Thromboplastin Ratio 1.4; Partial Thromboplastin Time 38.4 Seconds (21.0-31.0)
[2020-02-14 07:37] LABS: Calcium 8.3 mg/dl (8.5-10.1); Creatinine Clr Calc Pharmacy 80.9 ml/min; Est GFR (African American) 100.4; Est GFR (Non-African American) 86.6; Potassium 3.8 mmol/L (3.5-5.1)
--- NOTE | 2020-02-14 08:19 | Surgery Progress Note ---
Date of Service February 14, 2020 Assessment & Plan (1) Perforated gallbladder: POD 4 laparoscopic washout and cholecystostomy tube placement remains stable continue drains increase activity Admission and Anticipated Discharge Date Admission Date: February 10, 2020 Subjective no concerns, some flatus, no BM, on solid diet Physical Exam Gastrointestinal (Abdomen): Inspection/Auscultation: + abdominal surgical drain present (AVERY 30 cc, simón 125 cc) Percussion/Palpation: abdomen soft Results & Data ([facility]) Vital Signs (Past 12 Hours) Vital Signs Temp Pulse Pulse Pulse Resp BP Pulse Ox 02/14/20 07:40 36.5 C 100 H 16 167/83 H 92 02/14/20 03:48 36.5 C 91 H 18 132/68 93 02/14/20 00:00 75 02/13/20 22:47 36.3 C L 80 18 143/89 H 95 PG Care Time/CCT Total # of Minutes Spent Total Time Spent with Patient: Total time spent is greater than 50% in coordination of care (as documented) at patient's floor/unit and/or counseling patient: Coding Level of Care Code None Diagnoses Perforated gallbladder K82.2
[2020-02-14] MEDS: METOPROLOL SUCC 50MG EXT REL TAB PO SCH (09:27)
[2020-02-14] MEDS: PANTOprazole 40 MG TAB PO SCH (09:27)
[2020-02-14] MEDS: UMECLIDINIUM BROMIDE 62.5MCG/BLISTER 7 PUFFS/INHALER INH SCH (09:28)
[2020-02-14] MEDS: CIPROFLOXACIN 500 MG TAB PO SCH ×2 (09:28→21:13)
[2020-02-14] MEDS: APIXABAN 5 MG TABLET PO SCH ×2 (09:28→21:13)
[2020-02-14] MEDS: FLUTICASONE/VILANTEROL 100/25MCG 14 PUFFS/INHALER INH SCH (09:28)
[2020-02-14] MEDS: metroNIDAZOLE 500 MG TAB PO SCH ×3 (09:28→21:14)
[2020-02-14] MEDS: lisinopril 10 MG TAB PO SCH (09:28)
[2020-02-14] MEDS: INSULIN ASPART 100 UNITS/ML 3 ML PEN SC SCH ×4 (09:29→21:14)
--- NOTE | 2020-02-14 13:33 | Hospitalist Progress Note ---
Date of Service February 14, 2020 Assessment & Plan (1) Perforated gallbladder: Gil Rodriguez is a 79 yo male with h/o CAD, chronic systolic CHF, chronic a- fib and COPD who was admitted to the ICU on 02/10/2020 after emergent laparoscopic surgery for perforated gallbladder. Transferred to med/surg with tele on 02/11. - s/p laparoscopic abdominal washing, cholecystostomy tube placement, subhepatic/pelvic drains on 02/09 - abdominal wound cx on 02/09 positive for bahena-susceptible Klebsiella - IV Zosyn transitioned to IV Cipro/Flagyl on 02/11 --> transitioned to PO Cipro/Flagyl on 02/12 - continue - Continue PO Protonix and heart healthy diet - surgery following - does not recommend further intervention (2) Sepsis: - severe sepsis with septic shock s/p gallbladder perforation - s/p source control via emergent surgery as stated above - blood cx no growth after 48 hrs - trend CBC daily - continue PO Cipro/Flagyl as above (3) Atrial fibrillation: - continue home Eliquis 5 mg PO BID and Toprol 100 mg PO QAM - (4) Chronic systolic (congestive) heart failure: - BNP 7302 on 02/09 - improved and euvolemic on exam as of 02/11 - continue home meds: Lisinopril 30 mg PO QAM and Toprol XL 100 mg PO QAM - follow clinically for hypervolemia (5) Chronic obstructive pulmonary disease: - continue home inhalers and nebulizers (6) Hypertension: - continue home meds as mentioned above FEN/GI: Heart Healthy DVT Prophylaxis: Eliquis 5 mg PO BID GI Prophylaxis: Protonix 40 mg PO daily Code Status: DNR/DNI Disposition: Med/surg with tele, CM following - may need rehab/SNF Admission and Anticipated Discharge Date Admission Date: February 10, 2020 Supervising Physician Co-Signing Physician Notes I also saw the patient with the resident physician and confirmed martínez portions of the history and physical examination. I agree with the impression and plan as noted in the resident documentation. 79-year-old male postoperative day #4 status post laparoscopic washout and cholecystectomy. He feels somewhat better today; flatulence but no bowel movements. Tolerated a near normal diet yesterday and today. Physical therapy has seen the patient is recommended inpatient rehabilitation. Exam Blood pressure 128/84, pulse 93, respiratory 16, temperature 36.8, pulse oximetry 92% on room air Alert and oriented. No distress. Abdomen generally soft and nontender. Drain is still intact, brown fluid. Data Hemoglobin 12.9, white blood cell count 9.12 BUN 23, creatinine 0.79. Potassium 3.8 Blood cultures are negative Abdominal fluid culture shows Klebsiella pneumonia, bahena sensitivity Impression and plan Suspected gram-negative sepsis in the setting of perforated gallbladder status post laparoscopic abdominal washout, cholecystectomy tube placement, postop day #4 Atrial fibrillation Progression of diet per surgery Ciprofloxacin and metronidazole Continue Eliquis Will need inpatient physical therapy upon discharge Subjective NAEO. Patient reports doing well overall - continues to pass gas although no BM yet. Tolerating heart healthy diet without N/V or increased abdominal pain. Denies SOB and cough. Denies fever/chills, chest pain/palpitations. Review of Systems Review of Systems: Pertinent positives and negatives mentioned in HPI Physical Exam Constitutional: no acute distress Respiratory: normal respiratory effort Auscultation: + diminished lung sounds (bilat lung bases, with decreased air entry); no rales, no rhonchi and no wheezes Cardiovascular: RRR, no murmur, no edema Gastrointestinal (Abdomen): Inspection/Auscultation: normal bowel sounds Percussion/Palpation: + abdomen tender (epigastric and RUQ tenderness) cholecystostomy tube and drain in place with overlying dressings c/d/i - draining serous fluid Psychiatric: Orientation: alert Results & Data Results & Data ([facility]) Vital Signs (Past 12 Hours) Vital Signs Temp Pulse Pulse Resp BP Pulse Ox 02/14/20 11:16 36.5 C 109 H 16 148/91 H 93 02/14/20 10:46 91 H 02/14/20 07:40 36.5 C 100 H 16 167/83 H 92 02/14/20 03:48 36.5 C 91 H 18 132/68 93 Resident Activity Tracking Resident Involvement: Resident Care Provided Care Provided: Adult Hospital Medicine (1) Chronic obstructive pulmonary disease COPD type: unspecified COPD Qualified Code(s): J44.9 - Chronic obstructive pulmonary disease, unspecified
[2020-02-14] MEDS: ATORVASTATIN 20 MG TAB PO SCH (21:14)
[2020-02-15 06:24] LABS: Basophils # (auto) 0.01 K/uL (0-0.2); Basophils % (auto) 0.1 %; Eosinophils # (auto) 0.08 K/uL (0-0.5); Eosinophils % (auto) 0.8 %; Hematocrit (blood only) 39.5 % (42-52); Hemoglobin 12.7 g/dL (14.0-18.0); Immature Granulocytes # (auto) 0.09 K/uL (0.00-0.02); Immature Granulocytes % (auto) 0.9 %; Lymphocytes # (auto) 0.56 K/uL (1.2-3.4); Lymphocytes % (auto) 5.8 %; Mean Corpuscular Hemoglobin 30.1 pg (25-34); Mean Corpuscular Hgb Conc 32.2 g/dL (32-36); Mean Corpuscular Volume 93.6 fL (80-100); Mean Platelet Volume 12.1 fL (7.4-10.4); Monocytes # (auto) 1.31 K/uL (0.11-0.59); Monocytes % (auto) 13.6 %; Neutrophils # (auto) 7.55 K/uL (1.4-6.5); Neutrophils % (auto) 78.8 %; Platelet Count 175 K/uL (130-400); RDW Coefficient of Variation 14.4 % (11.5-14.5); RDW Standard Deviation 48.7 fL (36.4-46.3); Red Blood Count 4.22 M/uL (4.7-6.1)
[2020-02-15 06:36] LABS: Partial Thromboplastin Ratio 1.3; Partial Thromboplastin Time 36.5 Seconds (21.0-31.0)
[2020-02-15 07:07] LABS: BUN Creatinine Ratio 22.8 (10-20); Calcium 8.1 mg/dl (8.5-10.1); Est GFR (African American) 95.6; Est GFR (Non-African American) 82.5; Magnesium 1.9 mg/dl (1.8-2.4); Potassium 3.8 mmol/L (3.5-5.1)
[2020-02-15] MEDS: FLUTICASONE/VILANTEROL 100/25MCG 14 PUFFS/INHALER INH SCH (08:45)
[2020-02-15] MEDS: APIXABAN 5 MG TABLET PO SCH ×2 (08:45→20:28)
[2020-02-15] MEDS: metroNIDAZOLE 500 MG TAB PO SCH ×3 (08:46→20:28)
[2020-02-15] MEDS: METOPROLOL SUCC 50MG EXT REL TAB PO SCH (08:46)
[2020-02-15] MEDS: lisinopril 10 MG TAB PO SCH (08:46)
[2020-02-15] MEDS: CIPROFLOXACIN 500 MG TAB PO SCH ×2 (08:46→20:28)
[2020-02-15] MEDS: PANTOprazole 40 MG TAB PO SCH (08:47)
[2020-02-15] MEDS: UMECLIDINIUM BROMIDE 62.5MCG/BLISTER 7 PUFFS/INHALER INH SCH (08:47)
[2020-02-15] MEDS: INSULIN ASPART 100 UNITS/ML 3 ML PEN SC SCH ×4 (08:50→21:00)
--- NOTE | 2020-02-15 09:28 | Surgery Progress Note ---
Date of Service February 15, 2020 Assessment & Plan (1) Perforated gallbladder: POD 5 laparoscopic washout and drain placement for perforated GB continue drains, plan to d/c with both drains ? rehab eventual lap simón as outpatient seen with Dr. Ervin Admission and Anticipated Discharge Date Admission Date: February 10, 2020 Supervising Physician Co-Signing Physician Notes Patient seen and examined, agree with above. Status post abdominal washout and cholecystostomy tube placement, doing well, still poor appetite. Continue drains, continue diet, continue antibiotics. Patient will likely stay through weekend Subjective not much appetite, no other c/o Physical Exam Gastrointestinal (Abdomen): Inspection/Auscultation: + abdominal surgical drain present (AVERY 10 cc, C-tube 50) Percussion/Palpation: abdomen soft Results & Data ([facility]) Vital Signs (Past 12 Hours) Vital Signs Temp Pulse Pulse Resp BP BP Pulse Ox 02/15/20 07:41 36.3 C L 87 20 149/87 H 96 02/15/20 04:00 36.4 C L 81 20 141/80 H 94 02/14/20 23:44 87 02/14/20 23:20 36.8 C 77 20 130/85 94 PG Care Time/CCT Total # of Minutes Spent Total Time Spent with Patient: Total time spent is greater than 50% in coordination of care (as documented) at patient's floor/unit and/or counseling patient: Coding Level of Care Code None Diagnoses Perforated gallbladder K82.2
--- NOTE | 2020-02-15 09:54 | Hospitalist Progress Note ---
Date of Service February 15, 2020 Assessment & Plan (1) Perforated gallbladder: Gil Rodriguez is a 79 yo male with h/o CAD, chronic systolic CHF, chronic a- fib and COPD who was admitted to the ICU on 02/10/2020 after emergent laparoscopic surgery for perforated gallbladder. Transferred to med/surg with tele on 02/11. Improving well with hopes for discharge soon. - s/p laparoscopic abdominal washing, cholecystostomy tube placement, subhepatic/pelvic drains on 02/09 - abdominal wound cx on 02/09 positive for bahena-susceptible Klebsiella - IV Zosyn transitioned to IV Cipro/Flagyl on 02/11 --> transitioned to PO Cipro/Flagyl on 02/12 - continue - Continue PO Protonix and heart healthy diet - surgery following - does not recommend further intervention (2) Sepsis: - severe sepsis with septic shock s/p gallbladder perforation - s/p source control via emergent surgery as stated above - blood cx no growth after 48 hrs - trend CBC daily - continue PO Cipro/Flagyl as above, will treat for a total of ten days (3) Atrial fibrillation: - continue home Eliquis 5 mg PO BID and Toprol 100 mg PO QAM (4) Chronic systolic (congestive) heart failure: - BNP 7302 on 02/09 - improved and euvolemic on exam as of 02/11 - continue home meds: Lisinopril 30 mg PO QAM and Toprol XL 100 mg PO QAM - follow clinically for hypervolemia (5) Chronic obstructive pulmonary disease: - continue home inhalers and nebulizers (6) Hypertension: - continue home meds as mentioned above FEN/GI: Heart Healthy DVTp: Eliquis 5 mg PO BID GI Prophylaxis: Protonix 40 mg PO daily Code Status: DNR/DNI Disposition: Med/surg with tele, CM following - may need rehab/SNF Admission and Anticipated Discharge Date Admission Date: February 10, 2020 Supervising Physician Co-Signing Physician Notes I also saw the patient with the resident physician and confirmed martínez portions of the history and physical examination. I agree with the impression and plan as noted in the resident documentation. 79-year-old male postoperative day #5 status post laparoscopic washout and gall bladder drain placement. He feels somewhat better today; flatulence but no bowel movements. Tolerated a near normal diet yesterday and today. Physical therapy has seen the patient is recommended inpatient rehabilitation. Exam Blood pressure 120/63, pulse 85, respiratory 18, temperature 36.3, pulse oximetry 93% on room air Alert and oriented. No distress. Abdomen generally soft and nontender. Drain is still intact, brown fluid. Data Hemoglobin 12.7, white blood cell count 9.6 BUN 22, creatinine 0.89. Potassium 3.8 Blood cultures are negative Abdominal fluid culture shows Klebsiella pneumonia, bahena sensitivity Impression and plan Suspected gram-negative sepsis in the setting of perforated gallbladder status post laparoscopic abdominal washout, cholecystectomy tube placement, postop day #5 Atrial fibrillation Encourage ambulation, p.o. fluids, and appetite Ciprofloxacin and metronidazole Continue Eliquis Will need inpatient physical therapy upon discharge Outpatient cholecystectomy at some point Subjective Gil Rodriguez is a 79 yo male with h/o CAD, chronic systolic CHF, chronic a-fib and COPD who was admitted to the ICU on 02/10/2020 after emergent laparoscopic surgery for perforated gallbladder. Transferred to med/surg with tele on 02/11. Patient was seen at bedside this morning. He feels well and only complains of very mild abdominal tenderness. He endorses fatigue and says he can fall asleep at any moment but this does not bother him. He reports his goal for the day is to get up and engage with physical therapy. He has no other complaints at this time. He has not had a bowel movement yet but continues to pass antonella without issue. He continues to have a low appetite, but did have a few bites of food for breakfast and tolerated that without nausea, vomiting, pain, or other issues. Review of Systems Constitutional: no fever, no chills and no sweats Respiratory: no dyspnea, no pain on inspiration and no wheezing Cardiovascular: no chest pain, no palpitations and no syncope Gastrointestinal: no nausea and no vomiting Genitourinary: no dysuria Musculoskeletal: no back pain Neurologic: no dizziness and no headache(s) Physical Exam Constitutional: no acute distress Respiratory: normal respiratory effort Auscultation: + diminished lung soun ds (bilat lung bases, with decreased air entry); no rales, no rhonchi and no wheezes Cardiovascular: RRR, no murmur, no edema Gastrointestinal (Abdomen): Inspection/Auscultation: normal bowel sounds Percussion/Palpation: + abdomen tender (epigastric and RUQ tenderness) Psychiatric: Orientation: alert Results & Data Results & Data ([facility]) Vital Signs (Past 12 Hours) Vital Signs Temp Pulse Pulse Resp BP BP Pulse Ox 02/15/20 07:41 36.3 C L 87 20 149/87 H 96 02/15/20 04:00 36.4 C L 81 20 141/80 H 94 02/14/20 23:44 87 02/14/20 23:20 36.8 C 77 20 130/85 94 Resident Activity Tracking Resident Involvement: Resident Care Provided Care Provided: Adult Hospital Medicine (1) Chronic obstructive pulmonary disease COPD type: unspecified COPD Qualified Code(s): J44.9 - Chronic obstructive pulmonary disease, unspecified
[2020-02-15] MEDS: ATORVASTATIN 20 MG TAB PO SCH (20:29)
--- NOTE | 2020-02-16 06:41 | Hospitalist Progress Note ---
Date of Service February 16, 2020 Assessment & Plan (1) Perforated gallbladder: Gil Rodriguez is a 79 yo male with h/o CAD, chronic systolic CHF, chronic a- fib and COPD who was admitted to the ICU on 02/10/2020 after emergent laparoscopic surgery for perforated gallbladder. Transferred to med/surg with tele on 02/11. Continues to improve - pending placement to acute rehab facility. - s/p laparoscopic abdominal washing, cholecystostomy tube placement, subhepatic/pelvic drains on 02/09 - abdominal wound cx on 02/09 positive for bahena-susceptible Klebsiella - IV Zosyn transitioned to IV Cipro/Flagyl on 02/11 --> transitioned to PO Cipro/Flagyl on 02/12 - continue - Continue PO Protonix and heart healthy diet - surgery following - recommends keeping drains on discharge as well as outpatient cholecystectomy (2) Sepsis: - severe sepsis with septic shock s/p gallbladder perforation - s/p source control via emergent surgery as stated above - blood cx no growth after 48 hrs - trend CBC daily - continue PO Cipro/Flagyl as above (today is day 4 ) (3) Atrial fibrillation: - continue home Eliquis 5 mg PO BID and Toprol 100 mg PO QAM (4) Chronic systolic (congestive) heart failure: - BNP 7302 on 02/09 - improved and euvolemic on exam as of 02/11 - continue home meds: Lisinopril 30 mg PO QAM and Toprol XL 100 mg PO QAM - follow clinically for hypervolemia (5) Chronic obstructive pulmonary disease: - continue home inhalers and nebulizers (6) Hypertension: - continue home meds as mentioned above FEN/GI: Heart Healthy DVTp: Eliquis 5 mg PO BID GI Prophylaxis: Protonix 40 mg PO daily Code Status: DNR/DNI Disposition: Med/surg with tele, CM following - pending placement for rehab/SNF Admission and Anticipated Discharge Date Admission Date: February 10, 2020 Supervising Physician Co-Signing Physician Notes I also saw the patient with the resident physician and confirmed martínez portions of the history and exam. Agree with the impression and plan as noted in the resident documentation. 79-year-old male postoperative day #6 status post laparoscopic washout and gall bladder drain placement. He continues to feel better; appetite slowly improving; flatus but no bowel movement yet. Exam 118/64, 80, 18, 36.6, 95% room air Alert and oriented. No distress. Abdomen generally soft and nontender. Drain is still intact, brown fluid. Data Hemoglobin 13, white blood cell count 9. BUN 19, creatinine 0.76. Potassium 4.0 Blood cultures are negative Abdominal fluid culture shows Klebsiella pneumonia, bahena sensitivity Impression and plan Suspected gram-negative sepsis in the setting of perforated gallbladder status post laparoscopic abdominal washout, cholecystectomy tube placement, postop day #5 Atrial fibrillation Encourage ambulation, p.o. fluids, and appetite Ciprofloxacin and metronidazole Continue Eliquis Will need inpatient physical therapy upon discharge Outpatient cholecystectomy at some point Subjective NAEO. Patient reports doing well overall - continues to pass gas although no BM yet. Tolerating heart healthy diet without N/V or increased abdominal pain. Denies SOB and cough. Denies fever/chills, chest pain/palpitations. Review of Systems Review of Systems: Pertinent positives and negatives mentioned in HPI Physical Exam Constitutional: no acute distress Respiratory: normal respiratory effort Auscultation: + diminished lung sounds (bilat lung bases, with decreased air entry); no rales, no rhonchi and no wheezes Cardiovascular: RRR, no murmur, no edema Gastrointestinal (Abdomen): Inspection/Auscultation: normal bowel sounds Percussion/Palpation: + abdomen tender (epigastric and RUQ tenderness) cholecystostomy tube and drain in place with overlying dressings c/d/i - draining serous fluid Psychiatric: Orientation: alert Results & Data Results & Data ([facility]) Vital Signs (Past 12 Hours) Vital Signs Temp Pulse Pulse Resp BP BP Pulse Ox 02/16/20 05:15 81 02/16/20 03:45 36.9 C 93 H 20 135/77 94 02/15/20 23:28 37.1 C 71 18 120/80 95 02/15/20 19:54 36.9 C 94 H 20 143/88 H 95 Resident Activity Tracking Resident Involvement: Resident Care Provided Care Provided: Adult Hospital Medicine (1) Chronic obstructive pulmonary disease COPD type: unspecified COPD Qualified Code(s): J44.9 - Chronic obstructive pulmonary disease, unspecified
[2020-02-16 07:27] LABS: Basophils # (auto) 0.01 K/uL (0-0.2); Basophils % (auto) 0.1 %; Eosinophils # (auto) 0.13 K/uL (0-0.5); Eosinophils % (auto) 1.4 %; Hematocrit (blood only) 39.1 % (42-52); Immature Granulocytes # (auto) 0.08 K/uL (0.00-0.02); Immature Granulocytes % (auto) 0.9 %; Lymphocytes # (auto) 1.29 K/uL (1.2-3.4); Lymphocytes % (auto) 14.3 %; Mean Corpuscular Hemoglobin 30.7 pg (25-34); Mean Corpuscular Hgb Conc 33.2 g/dL (32-36); Mean Corpuscular Volume 92.4 fL (80-100); Mean Platelet Volume 11.4 fL (7.4-10.4); Monocytes # (auto) 0.66 K/uL (0.11-0.59); Monocytes % (auto) 7.3 %; Neutrophils # (auto) 6.87 K/uL (1.4-6.5); Platelet Count 207 K/uL (130-400); RDW Coefficient of Variation 14.4 % (11.5-14.5); RDW Standard Deviation 49.2 fL (36.4-46.3); Red Blood Count 4.23 M/uL (4.7-6.1); White Blood Count 9.04 K/uL (4.8-10.8)
[2020-02-16 08:05] LABS: Creatinine Clr Calc Pharmacy 86.7 ml/min
--- NOTE | 2020-02-16 08:34 | Surgery Progress Note ---
Date of Service February 16, 2020 Assessment & Plan (1) Perforated gallbladder: POD#6 abdominal washout and placement of cholecystostomy tube for perforated gallbladder WBC: 9, afebrile Overall doing well, patient denies many abdominal symptoms. He is passing flatus, no BM yet Ordered for a regular diet, but continues with minimal appetite Continue both abdominal drains; likely discharge with both Continue course of abx Discussions in place regarding possible discharge to rehab when medically stable Eventual cholecystectomy as outpatient Admission and Anticipated Discharge Date Admission Date: February 10, 2020 Supervising Physician Co-Signing Physician Notes Patient seen examined, agree with above. Status post laparoscopic washout and cholecystostomy tube placement for perforated gallbladder. Still not much of an appetite. Otherwise doing well, no pain. Cholecystostomy tube bilious, subdiaphragmatic AVERY drain serosanguineous. Continue drains, awaiting placement to rehab Subjective Patient says he is feeling well. He denies any abdominal pain, nausea/vomiting. He is passing flatus, no BM yet. Still does not have much of an appetite. Physical Exam Physical Exam: awake/alert Respiratory: normal respiratory effort Gastrointestinal (Abdomen): Inspection/Auscultation: + abdominal surgical incision (c/d/i); abdomen not distended Percussion/Palpation: abdomen soft; abdomen nontender AVERY drain serosang (10cc); C-tube with dark/bilious drainage Results & Data ([facility]) Vital Signs (Past 12 Hours) Vital Signs Temp Pulse Pulse Resp BP Pulse Ox 02/16/20 07:32 36.7 C 77 18 133/80 92 02/16/20 05:15 81 02/16/20 03:45 36.9 C 93 H 20 135/77 94 02/15/20 23:28 37.1 C 71 18 120/80 95 PG Care Time/CCT Total # of Minutes Spent Total Time Spent with Patient: Total time spent is greater than 50% in coordination of care (as documented) at patient's floor/unit and/or counseling patient: Coding Level of Care Code None Diagnoses Perforated gallbladder K82.2
[2020-02-16] MEDS: CIPROFLOXACIN 500 MG TAB PO SCH ×2 (08:54→20:49)
[2020-02-16] MEDS: metroNIDAZOLE 500 MG TAB PO SCH ×3 (08:54→20:49)
[2020-02-16] MEDS: APIXABAN 5 MG TABLET PO SCH ×2 (08:54→20:50)
[2020-02-16] MEDS: FLUTICASONE/VILANTEROL 100/25MCG 14 PUFFS/INHALER INH SCH (08:54)
[2020-02-16] MEDS: UMECLIDINIUM BROMIDE 62.5MCG/BLISTER 7 PUFFS/INHALER INH SCH (08:54)
[2020-02-16] MEDS: lisinopril 10 MG TAB PO SCH (08:55)
[2020-02-16] MEDS: PANTOprazole 40 MG TAB PO SCH (08:55)
[2020-02-16] MEDS: METOPROLOL SUCC 50MG EXT REL TAB PO SCH (08:55)
[2020-02-16] MEDS: INSULIN ASPART 100 UNITS/ML 3 ML PEN SC SCH ×4 (08:57→21:21)
[2020-02-16] MEDS: ATORVASTATIN 20 MG TAB PO SCH (20:50)
[2020-02-17 06:50] LABS: Basophils # (auto) 0.01 K/uL (0-0.2); Basophils % (auto) 0.1 %; Eosinophils % (auto) 1.2 %; Hematocrit (blood only) 39.5 % (42-52); Hemoglobin 12.9 g/dL (14.0-18.0); Immature Granulocytes # (auto) 0.06 K/uL (0.00-0.02); Immature Granulocytes % (auto) 0.7 %; Lymphocytes # (auto) 0.58 K/uL (1.2-3.4); Lymphocytes % (auto) 7.1 %; Mean Corpuscular Hemoglobin 30.6 pg (25-34); Mean Corpuscular Hgb Conc 32.7 g/dL (32-36); Mean Corpuscular Volume 93.6 fL (80-100); Mean Platelet Volume 11.9 fL (7.4-10.4); Monocytes # (auto) 1.24 K/uL (0.11-0.59); Monocytes % (auto) 15.2 %; Neutrophils # (auto) 6.16 K/uL (1.4-6.5); Neutrophils % (auto) 75.7 %; Platelet Count 230 K/uL (130-400); RDW Coefficient of Variation 14.5 % (11.5-14.5); RDW Standard Deviation 49.2 fL (36.4-46.3); Red Blood Count 4.22 M/uL (4.7-6.1); White Blood Count 8.15 K/uL (4.8-10.8)
[2020-02-17 07:12] LABS: BUN Creatinine Ratio 20.6 (10-20); Calcium 7.9 mg/dl (8.5-10.1); Creatinine Clr Calc Pharmacy 83.4 ml/min; Est GFR (African American) 100.4; Est GFR (Non-African American) 86.6; Potassium 3.9 mmol/L (3.5-5.1)
[2020-02-17] MEDS: FLUTICASONE/VILANTEROL 100/25MCG 14 PUFFS/INHALER INH SCH (07:51)
[2020-02-17] MEDS: UMECLIDINIUM BROMIDE 62.5MCG/BLISTER 7 PUFFS/INHALER INH SCH (07:51)
[2020-02-17] MEDS: lisinopril 10 MG TAB PO SCH (07:52)
[2020-02-17] MEDS: PANTOprazole 40 MG TAB PO SCH (07:52)
[2020-02-17] MEDS: INSULIN ASPART 100 UNITS/ML 3 ML PEN SC SCH ×2 (07:52→12:08)
[2020-02-17] MEDS: METOPROLOL SUCC 50MG EXT REL TAB PO SCH (07:52)
--- NOTE | 2020-02-17 08:02 | Surgery Progress Note ---
Date of Service February 17, 2020 Assessment & Plan (1) Perforated gallbladder: Patient is a 1 week postop laparoscopic abdominal washout cholecystostomy tube placement for perforated gallbladder and septic shock He is doing very well from my point of view he can be discharged today or [facility] whether he goes home or long term At the present time we will leave both tubes in the Gene tube and the cholecystostomy tube At this point we will stop the antibiotic Our plan is to see him in outpatient and eventually consider cholecystectomy once he gets over this acute life-threatening situation Present on Admission?: Yes Admission and Anticipated Discharge Date Admission Date: February 10, 2020 Subjective Sitting comfortably in bed without any complaints states had a bowel movement this morning his appetite is improving although slowly denies any abdominal pain Physical Exam Physical Exam: Alert coherent in no distress The abdomen is completely benign Cholecystostomy tube draining bilious amount into the bag unfortunately the output was not and has not been recorded every shift The Gene drainage in the subhepatic area next to the cholecystostomy tube last recorded was 10 cc approximately 48 hours ago No pedal edema Results & Data ([facility]) Vital Signs (Past 12 Hours) Vital Signs Temp Pulse Resp BP Pulse Ox 02/17/20 07:56 36.8 C 86 18 118/61 95 02/17/20 03:47 37.2 C 92 H 20 123/60 92 02/16/20 23:18 36.8 C 70 18 130/73 95 PG Care Time/CCT Total # of Minutes Spent Total Time Spent with Patient: Total time spent is greater than 50% in coordination of care (as documented) at patient's floor/unit and/or counseling patient: Coding Level of Care Code None Diagnoses Perforated gallbladder K82.2
[2020-02-17] MEDS: APIXABAN 5 MG TABLET PO SCH (08:58)
[2020-02-17 11:18] VITALS: BP 108/66; PULSE 87; TEMP 97.3; O2SAT 96
--- NOTE | 2020-02-17 16:37 | Discharge Summary ---
Date of Service February 17, 2020 Admission HPI Per Admitting Provider 79yo M w/ hx of afib, systolic CHF, HTN who presents with sepsis-like picture. The patient reports that he has just felt fatigued for several days. He reports a general loss of appetite and decreased oral intake due to his fatigue. He does report some increased shortness of breath and a slight, dry cough. Otherwise, he has been in his normal state of health. He denies any fevers/chills/sweats. He denies any chest pain or abdominal pain or any urinary symptoms at all. He denies any nausea, vomiting, diarrhea, or GI symptoms. To the ED provider, he did report some suprapubic pressure. He received a Mi catheter and reportedly had substantial urine output with improvement of his discomfort. Admission Exam Per Admitting Provider Constitutional: WD/WN, vitals as above Eyes: EOM intact bilaterally; no conjunctival abnormality ENMT: external ear and nose normal, oropharynx normal Neck: trachea midline, no thyromegaly normal visual inspection Respiratory: normal respiratory effort, lungs clear to auscultation no respiratory distress Cardiovascular: RRR, no murmur, no edema Gastrointestinal (Abdomen): Inspection/Auscultation: abdomen normal to inspection; abdomen not distended Musculoskeletal: no cyanosis or clubbing, extremities motor strength 5/5 Skin: no rashes, warm and dry Neurologic: moves all extremities and awake Psychiatric: Orientation: alert, oriented to person and cooperative Principal Diagnosis Gallbladder Perforation Discharge Exam Constitutional no acute distress Respiratory normal respiratory effort Auscultation: + diminished lung sounds (bilat lung bases, with decreased air entry); no rales, no rhonchi and no wheezes Cardiovascular RRR, no murmur, no edema Gastrointestinal (Abdomen) Inspection/Auscultation: normal bowel sounds Percussion/Palpation: + abdomen tender (epigastric and RUQ tenderness) cholecystostomy tube and drain in place with overlying dressings c/d/i - draining minimal serous fluid Psychiatric Orientation: alert Discharge Data Allergies Allergy/AdvReac Type Severity Reaction Status Date / Time No Known Allergies Allergy Verified 02/10/20 15:03 Consultations 02/10/20 14:31 ED Decision to Admit Stat 02/10/20 16:54 Consult General Surgery Stat 02/10/20 19:40 Consult Hand Booked Folder And Stitcher Routine 02/14/20 13:42 Consult Case Management - Discharge Planning Routine Procedures Performed Operation Date: 02/10/20 18:00 Actual Procedures p Abdominal Washings; Laparoscopic Cholecystostomy(Not Applicable) - Gigi Buchanan MD Ordered Studies 02/10/20 14:00 CT abd pelvis wo con Stat CT head/brain wo con Stat 02/10/20 20:18 US point of care ultrasound Urgent Hospital Course (1) Perforated gallbladder: Gil Rodriguez is a 79 yo male with h/o CAD, chronic systolic CHF, chronic a- fib and COPD who was admitted to the ICU on 02/10/2020 after emergent laparoscopic surgery for perforated gallbladder. Transferred to med/surg with tele on 02/11. Continues to improve - pending placement to acute rehab facility. - s/p laparoscopic abdominal washing, cholecystostomy tube placement, subhepatic/pelvic drains on 02/09 - abdominal wound cx on 02/09 positive for bahena-susceptible Klebsiella - IV Zosyn transitioned to IV Cipro/Flagyl on 02/11 --> transitioned to PO Cipro/Flagyl on 02/12 - continue - Continue PO Protonix and heart healthy diet - surgery following - recommends keeping drains on discharge as well as outpatient cholecystectomy (2) Sepsis: - severe sepsis with septic shock s/p gallbladder perforation - s/p source control via emergent surgery as stated above - blood cx no growth after 48 hrs - antibiotics discontinued on 02/16 (3) Atrial fibrillation: - continue home Eliquis 5 mg PO BID and Toprol 100 mg PO QAM (4) Chronic systolic (congestive) heart failure: - BNP 7302 on 02/09 - improved and euvolemic on exam as of 02/11 - continue home meds: Lisinopril 30 mg PO QAM and Toprol XL 100 mg PO QAM (5) Chronic obstructive pulmonary disease: - continue home inhalers and nebulizers (6) Hypertension: - continue home meds as mentioned above Total Time Total Time Spent Total Time Spent (In Minutes): <30 Total Time Includes: Examination of the Patient, Discharge Planning and Medication Reconciliation Discharge Plan Discharge Items Patient Disposition: Home - Self-Care Reason For Visit: SEPSIS Discharge Diagnosis: Gallbladder Perforation Activity: Per Instructions section Lifting: No more than 10 pounds Bathing Comment: may shower; no soaking in tubs/pools Exercise/Sports: Wait until after follow-up appointment Non-emergency contact: Primary Care Provider and Surgeon Call non-emergency contact if: you have any medication questions, your symptoms worsen, your pain is not controlled, your pain is worsening, your pain is unusual for you, you have a fever, your temperature is above 101.5, your wound has increased redness, your wound has increased drainage and your wound pain has increased Follow-up/Referrals: Gigi Buchanan MD [Surgeon] - (Please call to schedule follow up in clinic within 1 week) Katelynn Patel MD [Primary Care Provider] - Diet: Heart Healthy Addtl Attending Provider Instructions: Please care for your AVERY drain as you have been instructed prior to discharge from the hospital. Empty drain 2-3 times per day as needed and record daily output. Please care for your biliary drain as you have been instructed prior to discharge from the hospital. Empty daily and as needed and record daily output. Addtl Interactive Media Specialist Provider Instructions: Assessment & Plan (1) Perforated gallbladder: Gil Rodriguez is a 79 yo male with h/o CAD, chronic systolic CHF, chronic a- fib and COPD who was admitted to the ICU on 02/10/2020 after emergent laparoscopic surgery for perforated gallbladder. Transferred to med/surg with tele on 02/11. Continues to improve - will be discharged to [facility] on 02/17/2020. - s/p laparoscopic abdominal washing, cholecystostomy tube placement, subhepatic/pelvic drains on 02/09 - abdominal wound cx on 02/09 positive for bahena-susceptible Klebsiella - IV Zosyn transitioned to IV Cipro/Flagyl on 02/11 --> transitioned to PO Cipro/Flagyl on 02/12 - continue - Continue PO Protonix and heart healthy diet - surgery following - recommends keeping drains on discharge as well as outpatient cholecystectomy (2) Sepsis: - severe sepsis with septic shock s/p gallbladder perforation - s/p source control via emergent surgery as stated above - blood cx no growth after 48 hrs - antibiotics discontinued on 02/16 (3) Atrial fibrillation: - continue home Eliquis 5 mg PO BID and Toprol 100 mg PO QAM (4) Chronic systolic (congestive) heart failure: - BNP 7302 on 02/09 - improved and euvolemic on exam as of 02/11 - continue home meds: Lisinopril 30 mg PO QAM and Toprol XL 100 mg PO QAM (5) Chronic obstructive pulmonary disease: - continue home inhalers and nebulizers (6) Hypertension: - continue home meds as mentioned above Pending Studies at Discharge: No Stand-Alone Forms: My [facility], Smoking Cessation Medications and DC Order Prescriptions: Continued (DME) nebulizer accessories kit See Rx Instructions .ROUTE .MEDSUPPLY Qty: 1 RF: 0 (DME) nebulizers misc See Rx Instructions [id number] .MEDSUPPLY Qty: 1 RF: 0 lisinopril 30 mg tablet 30 mg PO QAM Qty: 90 RF: 3 Eliquis 5 mg tablet 5 mg PO BID Qty: 180 RF: 3 furosemide [Lasix] 40 mg tablet 40 mg PO DAILY Qty: 100 RF: 1 Combivent Respimat 20-100 mcg/actuation mist 1 puff INHALATION TID PRN (Reason: shortness of breath or wheezing) Qty: 4 RF: 5 montelukast 10 mg tablet 10 mg PO DAILY Qty: 90 RF: 3 metoprolol succinate 100 mg tablet extended release 24 hr 100 mg PO QAM Qty: 90 RF: 3 atorvastatin 20 mg tablet 20 mg PO HS Qty: 90 RF: 3 Symbicort 160-4.5 mcg/actuation HFA aerosol inhaler 2 puff INHALATION BID Qty: 10.2 RF: 5 Spiriva Respimat 2.5 mcg/actuation mist 2 puffs INH DAILY Qty: 4 RF: 5 omeprazole 20 mg capsule,delayed release(DR/EC) 20 mg PO DAILY RF: 0 Discharge Orders: Discharge Order (Routine); Ordered 02/17/20 Ordered By: Albino Quarles Admission Data Admit Date/Time: 02/10/20 16:15 Attending Provider: Gerardo Jaimes Admit Provider: Eligio Tong Primary Care Provider: Katelynn Patel Other Providers: Eligio Tong ; Gigi Buchanan ; Heath Muñoz ; [facility] ; Hernandez Ann Other Interventions: Discharge Summary Assessment (RN) Last Done: 02/17/20 14:10 Supervising Physician Co-Signing Physician Notes I personally examined the patient and verified all martínez points of history and exam, discussed case, and agree with decision making with Dr Quarles. feeling up to going to rehab. understands situation and goals. no new complaitns no new questions vitals noted nad heent nc at mmm breathing unlabored no accessory msucles good effort skin no rashes no pallor or icterus perforated gallbladder w sepsis - improved - stable for rehab. ok off abx. otherwise as above Resident Activity Tracking Resident Involvement: Resident Care Provided Care Provided: Adult Hospital Medicine
--- NOTE | 2020-02-17 17:30 | Billing Data ---
Date of Service February 17, 2020 Coding Level of Care Code D/C Day Management <30 mins
== END 2020-02-17 16:03 | DRG 853 ==
LOC: ED 12:02 → SUATTDRO 16:15 → OR 17:59 → SUATTDRO 19:59 → 1E 19:59 → 2N 02-12 08:54
DX: Z87.891 Personal history of nicotine dependence; Z79.899 Other long term (current) drug therapy; G93.41 Metabolic encephalopathy; Z66 Do not resuscitate; R65.21 Severe sepsis with septic shock; I50.22 Chronic systolic (congestive) heart failure; I27.20 Pulmonary hypertension, unspecified; E83.39 Other disorders of phosphorus metabolism; R73.03 Prediabetes; J44.9 Chronic obstructive pulmonary disease, unspecified; A41.50 Gram-negative sepsis, unspecified; E87.6 Hypokalemia; K82.2 Perforation of gallbladder; I21.A1 Myocardial infarction type 2; I11.0 Hypertensive heart disease with heart failure; N17.9 Acute kidney failure, unspecified; J96.90 Respiratory failure, unspecified, unspecified whether with hypoxia or hypercapnia; Z95.2 Presence of prosthetic heart valve; I48.20 Chronic atrial fibrillation, unspecified; Z79.01 Long term (current) use of anticoagulants

== ENCOUNTER 2022-01-03 11:24 | Inpatient (IN) ==
[2022-01-03 12:00] LABS: Basophils # (auto) 0.01 K/uL (0-0.2); Basophils % (auto) 0.1 %; Eosinophils # (auto) 0.04 K/uL (0-0.50); Eosinophils % (auto) 0.4 %; Hematocrit (blood only) 34.1 % (40.1-51.0); Immature Granulocytes # (auto) 0.03 K/uL (0.00-0.02); Immature Granulocytes % (auto) 0.3 %; Lymphocytes # (auto) 0.59 K/uL (1.2-3.4); Lymphocytes % (auto) 5.3 %; Mean Corpuscular Hemoglobin 31.2 pg (25.0-34.0); Mean Corpuscular Hgb Conc 32.3 g/dL (32.0-36.0); Mean Corpuscular Volume 96.6 fL (80.0-100.0); Mean Platelet Volume 12.3 fL (9.4-12.4); Monocytes # (auto) 1.19 K/uL (0.24-0.82); Monocytes % (auto) 10.7 %; Neutrophils # (auto) 9.21 K/uL (1.4-6.5); Neutrophils % (auto) 83.2 %; Platelet Count 115 K/uL (130-400); RDW Coefficient of Variation 15.2 % (11.5-14.5); RDW Standard Deviation 53.7 fL (36.4-46.3); Red Blood Count 3.53 M/uL (4.63-6.08); White Blood Count 11.07 K/ul (4.8-10.8)
[2022-01-03 12:24] LABS: Albumin Globulin Ratio 1.6 (0.9-2); Albumin Level 3.7 gm/dl (3.4-5.0); Bilirubin,Total 1.8 mg/dl (0.2-1.0); Calcium 8.9 mg/dl (8.5-10.1); Creatinine Clr Calc Pharmacy 60.2 ml/min; Est GFR (Non-African American) 66.4 ml/min; Globulin 2.3 gm/dl (2.5-4.0); Potassium 3.8 mmol/L (3.5-5.1)
[2022-01-03] MEDS ORDERED: cefTRIAXone SODIUM 2,000 MG/70 ML BAG IV STA (12:26)
[2022-01-03 12:27] LABS: Troponin I High Sensitivity 52.4 pg/ml (0-20)
--- NOTE | 2022-01-03 12:31 | XRay Report ---
XR chest 1V portable CLINICAL HISTORY: Dyspnea. COMPARISON STUDY: Chest radiograph February 11, 2020. Chest CT October 04, 2021. FINDINGS: Moderate cardiomegaly is unchanged. There is a prosthetic mitral valve. Emphysema is better depicted on prior chest CT. There is a possible trace right pleural effusion. Interstitial thickenin g is noted. There is no lobar consolidation. IMPRESSION: Cardiomegaly. Interstitial thickening which favors mild pulmonary edema. An infectious p rocess could appear similar. Radiographic follow-up is recommended. ACT 112: Negative or not required by law. Electronically signed by: Osbaldo Milner M.D. 01/03/2022 12:30 PM
--- NOTE | 2022-01-03 13:31 | History & Physical Report ---
Date of Service January 03, 2022 Assessment & Plan (1) Chronic obstructive pulmonary disease: Plan: Patient seems to be in mild exacerbation. He will be given a dose of Solu- Medrol in the ER and start on prednisone 40 in the morning. His as needed DuoNebs will be changed to scheduled and will continue tiotropium, budesonide- formoterol, there maybe a small RLL infiltrate on cxr because of his exacerbation of his COPD or acute on chronic respiratory failure with hypoxia exacerbation the patient is on Zosyn therapy for the possibility that this is a right lower lobe pneumonia (gram-negative pneumonia) (2) Chronic systolic (congestive) heart failure: Plan: will continue metprolol, lasixpatient given 1 dose of Lasix additionally in the emergency department on the time of admission troponin is slightly elevated, will trend, will only do aspirin if his troponin trend increases (3) Atrial fibrillation: Plan: continues on apixiban, metoprolol xl 100 (4) Elevated bilirubin: Plan: Patient has an elevated total bilirubin without elevation of transaminases. In 2019 the patient had a severe cholecystitis which was treated with cholecystostomy tube and not cholecystectomy. The patient recovered from that. There is only very mild elevation of his alkaline phosphatase. We will also consider congestive hepatopathy as he has a history of diastolic heart failure and pulmonary hypertension. We will fractionate his bilirubin check LFTs in the morning and a ultrasound of his gallbladder. (5) Cellulitis: Plan: was started on rocephin in ER will change to zosyn to cover more broadly, (6) BPH with obstruction/lower urinary tract symptoms: Plan: afluosin, may substitute tamsulosin Plan DVT prevention is apixaban History of Present Illness Primary Care Provider: Juan Ramos, 81year old male who presents to the Emergency Room with complaints of confusion and right leg swelling/redness. This started last night and is fluctuating. notes that he was seeing things that were inappropriate and did complain of chills last night. The patient also complains of generalized weakness, swelling of the lower extremities which is worse than chronic, some mild shortness of breath which is worse than chronic as well. Patient has a history of A. fib and is anticoagulated. He also has a history of CKD3.. Presentation the patient's biggest complaint is shortness of breath. His says he has had production of sputum although the patient states it is clear. Patient states he feels dyspneic on exertion without exertional chest pain and this is worse than usual. Allergies Allergy/AdvReac Type Severity Reaction Status Date / Time cephalexin [From Keflex] Allergy Hives Unverified 01/03/22 13:03 Home Medications Medication Instructions Recorded Confirmed Type nebulizer accessories #1 ea 03/26/19 12/28/21 Rx nebulizers #1 ea 03/28/19 12/28/21 Rx multivitamin (Daily Multi-Vitamin 1 tab PO QAM 07/20/20 01/03/22 History tablet) atorvastatin 20 mg tablet 20 mg PO HS #90 tabs 12/25/20 01/03/22 Rx omeprazole 20 mg capsule,delayed 20 mg PO DAILY #90 caps 01/21/21 01/03/22 Rx release ipratropium 0.5 mg-albuterol 3 mg 3 ml inhalation QID PRN shortness 01/29/21 01/03/22 Rx (2.5 mg base)/3 mL nebulization of breath or wheezing #360 mL soln alfuzosin 10 mg tablet,extended 10 mg PO DAILY #90 tabs 07/13/21 01/03/22 Rx release 24 hr (Uroxatral) budesonide-formoterol HFA 160 2 puff inhalation BID #10.2 grams 09/27/21 01/03/22 Rx mcg-4.5 mcg/actuation aerosol inhaler (Symbicort) metoprolol succinate 100 mg 100 mg PO QPM 09/27/21 01/03/22 History tablet,extended release 24 hr Oxygen Home #2 L 10/14/21 12/28/21 Rx tiotropium bromide 2.5 2 puff inhalation DAILY #4 grams 10/15/21 01/03/22 Rx mcg/actuation mist for inhalation (Spiriva Respimat) apixaban 5 mg tablet (Eliquis) See Rx Instructions .Route 10/25/21 01/03/22 Rx .COMPLEX #180 tabs furosemide 40 mg tablet (Lasix) 40 mg PO DAILY 11/25/21 01/03/22 History albuterol sulfate 90 mcg/actuation 2 puff inhalation QID PRN 12/22/21 01/03/22 Rx aerosol inhaler (Ventolin HFA) shortness of breath or wheezing #18 grams Past Med/Surg History Medical History (Updated 01/03/22 @ 13:42 by Jared Fraser MD) Abnormal CT scan, chest Atrial fibrillation BPH with obstruction/lower urinary tract symptoms Chronic obstructive pulmonary disease Diverticulosis GERD (gastroesophageal reflux disease) Hernia, inguinal, left History of Mohs micrographic surgery for skin cancer Hyperlipidemia Hypertension NSTEMI (non-ST elevated myocardial infarction) SNHL (sensorineural hearing loss) Surgical History Fistula REPAIRED History of cardiac cath History of cardiac radiofrequency ablation 5-6 YEARS AGO ([facility] BY DR. 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) Family History Father Family hx colonic polyps Mother Heart disease Other Hypertension Social History Smoking Status: Former smoker Tobacco Type: Cigarettes Age Started Using Tobacco: 17; Age Quit Using Tobacco: 62; packs per day: 2; Years Smoked: 45; Cigarettes Per Day: 40; Second Hand Exposure: No; Hx Alcohol Use: Yes Alcohol type: beer Alcohol Intake Frequency: 2-3 x/Week Hx Substance Use: No Preferred Language: Serbian Communication Ability: Effective Visual Impairment: Limited Hearing Ability: Normal Vamp Maker Required: No Beliefs That Will Affect Care: None marital status: Current Living Situation: Spouse current occupational status: retired Feels Safe at Home: Yes Childhood Exposure to Second-Hand Smoke: Yes caffeine: Yes Dental Care, Regularly: Yes Physical Activity Frequency: 1-2 Times per Week Physical Activity Frequency Comment: walks Seatbelt Use: always Sunscreen Use: Yes Do you think of yourself as: straight/heterosexual Assistive Devices: Glasses Review of Systems Review of Systems: Moderate respiratory distress and fatigue no headache, no visual changes no speech or swallowing issues no chest pain, pressure or palpitations Shortness of breath both at rest and with exertion cough productive of white sputum no abdominal pain, nausea or vomiting, diarrhea or constipation no dysuria, hematuria or frequency no focal joint pain does have significant lower extremity swelling and some bruises from falling no back pain, CVA tenderness or radicular pain Open area and skin tears on his lower extremities and injuries to his upper extremities likely from bumping on anticoagulation no focal signs of weakness or numbness or altered sensation no complaints of anxiety or depression.. Physical Exam Physical Exam: The patient appeared well nourished and normally developed. He appears chronically ill Vital signs as documented. Head exam is normocephalic atraumatic Neck is without JVD, thyromegaly, or carotid bruits. Lungs are With diminished breath sounds increased use of accessory muscles respiration and belly breathing Cardiac exam, Rhythm is regular.. No murmurs, rubs or gallops. Abdominal exam reveals normal bowel sounds, soft non tender, no masses particularly no right upper quadrant tenderness Extremities are 2-3+ arthur aand both pedal pulses are present Neurologic exam is alert and oriented, no focal loss of strength or sensation Skin is with bruises to his lower and upper extremities from likely minor trauma Psychologically is without concerns for anxiety or depression.. Results & Data Results & Data ([facility]) Vital Signs (Past 12 Hours) Vital Signs Temp Pulse Resp BP Pulse Ox O2 Del Method O2 Flow Rate 01/03/22 11:52 95 Nasal Cannula 2 01/03/22 11:37 97 H 18 95 Nasal Cannula 2 01/03/22 11:34 98.6 F 97 H 18 118/62 92 Nasal Cannula 2 Diagnostic Findings Chest X-Ray 01/03/22 11:45 XR chest 1V portable CLINICAL HISTORY: Dyspnea. COMPARISON STUDY: Chest radiograph February 11, 2020. Chest CT October 04, 2021. FINDINGS: Moderate cardiomegaly is unchanged. There is a prosthetic mitral valve. Emphysema is better depicted on prior chest CT. There is a possible trace right pleural effusion. Interstitial thickening is noted. There is no lobar consolidation. IMPRESSION: Cardiomegaly. Interstitial thickening which favors mild pulmonary edema. An infectious process could appear similar. Radiographic follow-up is recommended. ACT 112: Negative or not required by law. Electronically signed by: Osbaldo Milner M.D. 01/03/2022 12:30 PM PG Care Time/CCT Total # of Minutes Spent Total Time Spent with Patient: Total time spent is greater than 50% in coordination of care (as documented) at patient's floor/unit and/or counseling patient: Coding Level of Care Code 95906 Initial Inpt Care Lvl 3 Diagnoses Chronic obstructive pulmonary disease J44.9 Chronic systolic (congestive) heart failure I50.22 Atrial fibrillation I48.21 Atrial fibrillation type: permanent Elevated bilirubin R17 Cellulitis L03.90 BPH with obstruction/lower urinary tract symptoms N40.1; N13.8 (1) Atrial fibrillation Atrial fibrillation type: permanent Qualified Code(s): I48.21 - Permanent atrial fibrillation
--- NOTE | 2022-01-03 13:36 | Emergency Department Note ---
Impression & Plan Cellulitis of right lower extremity, Elevated brain natriuretic peptide (BNP) level, Elevated troponin, Chills, Leukocytosis, Acute confusion ED Provider Note INFORMANT: Patient ED PROVIDER(S): Aaron Jerry MD CHIEF COMPLAINT: Confusion and right leg redness PLAN: Disposition: Admitted Condition: Good Outpatient prescription management: none Referral: None MEDICAL DECISION MAKING: Patient presented with the symptoms as noted below. He had a work-up initiated. Physical examination was concerning for right lower extremity cellulitis. Vital signs were stable. Patient had blood cultures and other laboratory testing performed. His CBC showed a mild leukocytosis and mild anemia. The patient had an elevated BNP and troponin. His ECG had A. fib with frequent ectopy. Anterior and inferior T wave inversions present. This was not significant different than prior. The patient initially denied any allergies and IV Rocephin was ordered. However on further review the patient had a Keflex allergy reported. His clindamycin is Rocephin was discontinued and clindamycin was ordered. Patient has some vascular congestion on chest x-ray but does not have any symptoms to suggest pneumonia. The patient will need further management in the hospital. Consultation was made with Dr. Jared Fraser of the [facility] service. Patient was evaluated in the ER for further management. Triage Nursing notes reviewed and agree them. Vital Signs: reviewed and remarkable for no significant abnormalities Differential diagnosis: Cellulitis, abscess, MRSA infection, DVT, necrotizing fasciitis, dermatitis, drug eruption, allergic reaction, CHF, sepsis, bacteremia as well as other pathologies. Diagnostics interpreted by me: ECG: Twelve-lead ECG reveals atrial fibrillation with wide QRS and frequent PVCs at 97 bpm. Right bundle branch block. Inferior and anterior T wave inversions. When compared to February 2020 there is no significant change. Cardiac Monitoring: Cardiac monitoring ordered by me: The patient was placed on continuous cardiac monitoring and observed. It revealed a atrial fibrillation at 91 bpm. Imaging studies: Chest x-ray as noted below HPI: The patient is a 81year old male who presents to the Emergency Room with complaints of confusion and right leg swelling/redness. This started last night and is fluctuating. is present and helps with the history. She notes that he was seeing things that were inappropriate and did complain of chills last night. The patient also notes the following associated symptoms, generalized weakness, swelling of the lower extremities which is chronic, some mild shortness of breath which is chronic as well. The patient has found no relieving factors. Current pain is rated as 0/10. Patient has a history of A. fib and is anticoagulated. He also has a history of CKD. Pt denies LOC, headache, fevers, diaphoresis, visual changes, neck pain, chest pain, nausea, vomiting, abdominal pain, back pain, melena, hematochezia, urinary symptoms, numbness, lymphadenopathy, other rash, or other complaints. ROS: See above HPI for pertinent positives & negatives. A total of 10 systems reviewed and were otherwise negative. PAST MEDICAL HISTORY:See Below , CKD, pulmonary hypertension, anticoagulated, COPD PAST SURGICAL HISTORY:See Below, FAMILY HISTORY:See below SOCIAL HISTORY:See Below, HOME MEDICATIONS:See Below ALLERGIES:See Below VITALS:See Below PHYSICAL EXAMINATION: GENERAL: Awake, alert, mildly dyspneic-appearing, in no distress HENT: Normocephalic, atraumatic. Oropharynx unremarkable. EYES: Normal conjunctiva. Sclera non-icteric. NECK: Inspection normal. Non-tender. Supple. No nuchal rigidity. FROM. No masses. RESPIRATORY: Clear to auscultation. No wheezes. No rales. Normal respiratory effort. CARDIAC: Normal rate. Normal rhythm. No murmurs. No rubs. Extremities warm and well perfused. Pulses equal. No JVD. GI: Soft, non-distended. No tenderness to palpation. No rebound or guarding. No masses. RECTAL: Deferred. MUSCULOSKELETAL: Atraumatic. Chest examination reveals no tenderness. The back is symmetrical on inspection without obvious abnormality. There is no CVA tenderness to palpation. No joint edema. LOWER EXTREMITIES: Calves are equal size bilaterally with 3+ edema. No discoloration on the left without significant tenderness. The right lower extremity is erythematous from the foot through the knee area. This is warm to the touch and tender concerning for cellulitis.. NEURO: Normal sensorium. No sensory or motor deficits noted. SKIN: No rash or jaundice noted. Aaron Jerry MD Past Med/Surg History Medical History (Updated 01/03/22 @ 13:42 by Jared Fraser MD) Abnormal CT scan, chest Atrial fibrillation BPH with obstruction/lower urinary tract symptoms Chronic obstructive pulmonary disease Diverticulosis GERD (gastroesophageal reflux disease) Hernia, inguinal, left History of Mohs micrographic surgery for skin cancer Hyperlipidemia Hypertension NSTEMI (non-ST elevated myocardial infarction) SNHL (sensorineural hearing loss) Surgical History Fistula REPAIRED History of cardiac cath History of cardiac radiofrequency ablation 5-6 YEARS AGO ([facility] BY DR. YIN) History of colonoscopy History of heart valve replacement MITRAL VALVE REPLACED 3 YEARS AGO ([facility]) History of tonsillectomy History of tooth extraction Status post anal fissurectomy Status post Mohs surgery left cheek and left arm (squamous cell) Family History Father Family hx colonic polyps Mother Heart disease Other Hypertension Social History Smoking Status: Former smoker Tobacco Type: Cigarettes Age Started Using Tobacco: 17; Age Quit Using Tobacco: 62; packs per day: 2; Years Smoked: 45; Cigarettes Per Day: 40; Second Hand Exposure: No; Hx Alcohol Use: Yes Alcohol type: beer Alcohol Intake Frequency: 2-3 x/Week Hx Substance Use: No Preferred Language: Thai Communication Ability: Effective Visual Impairment: Limited Hearing Ability: Normal Property Developer Required: No Beliefs That Will Affect Care: None marital status: Current Living Situation: Spouse current occupational status: retired Feels Safe at Home: Yes Childhood Exposure to Second-Hand Smoke: Yes caffeine: Yes Dental Care, Regularly: Yes Physical Activity Frequency: 1-2 Times per Week Physical Activity Frequency Comment: walks Seatbelt Use: always Sunscreen Use: Yes Do you think of yourself as: straight/heterosexual Assistive Devices: Glasses Allergies Allergies Allergy/AdvReac Type Severity Reaction Status Date / Time cephalexin [From Keflex] Allergy Hives Unverified 01/03/22 13:03 Home Meds Home Medications Medication Instructions Recorded Confirmed multivitamin (Daily Multi-Vitamin 1 tab PO QAM 07/20/20 01/03/22 tablet) metoprolol succinate 100 mg 100 mg PO QPM 09/27/21 01/03/22 tablet,extended release 24 hr furosemide 40 mg tablet (Lasix) 40 mg PO DAILY 11/25/21 01/03/22 Previous Rx's Medication Instructions Recorded nebulizer accessories #1 ea 03/26/19 nebulizers #1 ea 03/28/19 atorvastatin 20 mg tablet 20 mg PO HS #90 tabs 12/25/20 omeprazole 20 mg capsule,delayed 20 mg PO DAILY #90 caps 01/21/21 release ipratropium 0.5 mg-albuterol 3 mg 3 ml inhalation QID PRN shortness 01/29/21 (2.5 mg base)/3 mL nebulization of breath or wheezing #360 mL soln alfuzosin 10 mg tablet,extended 10 mg PO DAILY #90 tabs 07/13/21 release 24 hr (Uroxatral) budesonide-formoterol HFA 160 2 puff inhalation BID #10.2 grams 09/27/21 mcg-4.5 mcg/actuation aerosol inhaler (Symbicort) Oxygen Home #2 L 10/14/21 tiotropium bromide 2.5 2 puff inhalation DAILY #4 grams 10/15/21 mcg/actuation mist for inhalation (Spiriva Respimat) apixaban 5 mg tablet (Eliquis) See Rx Instructions .Route 10/25/21 .COMPLEX #180 tabs albuterol sulfate 90 mcg/actuation 2 puff inhalation QID PRN 12/22/21 aerosol inhaler (Ventolin HFA) shortness of breath or wheezing #18 grams Results & Data (ED) Vital Signs Vital Signs - 24 hr 01/03/22 11:34 01/03/22 11:37 01/03/22 11:52 Temperature 37.0 C Temperature Source Oral Pulse Rate 97 H 97 H Pulse Rhythm Regular Respiratory Rate 18 18 Blood Pressure 118/62 Blood Pressure Mean 80 Pulse Oximetry 92 95 95 Oxygen Delivery Method Nasal Cannula Nasal Cannula Nasal Cannula Oxygen Flow Rate 2 2 2 Sepsis Recent Fever Within 48 Hours No Sepsis New/Unexplained Change in Mental Status N/A Sepsis Action Taken by Nursing No Action Required Laboratory Data Result diagrams: 01/03/22 11:55 01/03/22 11:55 Lab Results 01/03/22 01/03/22 01/03/22 Range/Units 11:55 11:55 11:55 WBC 11.07 H (4.8-10.8) K/ul RBC 3.53 L (4.63-6.08) M/uL Hgb 11.0 L (14.0-18.0) g/dl Hct 34.1 L (40.1-51.0) % MCV 96.6 (80.0-100.0) fL MCH 31.2 (25.0-34.0) pg MCHC 32.3 (32.0-36.0) g/dL RDW Std Deviation 53.7 H (36.4-46.3) fL RDW Coeff of Kamron 15.2 H (11.5-14.5) % Plt Count 115 L (130-400) K/uL MPV 12.3 (9.4-12.4) fL Immature Gran % (Auto) 0.3 % Neut % (Auto) 83.2 % Lymph % (Auto) 5.3 % Mcleod % (Auto) 10.7 % Eos % (Auto) 0.4 % Baso % (Auto) 0.1 % Neut # (Auto) 9.21 H (1.4-6.5) K/uL Lymph # (Auto) 0.59 L (1.2-3.4) K/uL Mcleod # (Auto) 1.19 H (0.24-0.82) K/uL Eos # (Auto) 0.04 (0-0.50) K/uL Baso # (Auto) 0.01 (0-0.2) K/uL Immature Gran # (Auto) 0.03 H (0.00-0.02) K/uL Sodium 139 (136-145) mmol/L Potassium 3.8 (3.5-5.1) mmol/L Chloride 102 (98-107) mmol/L Carbon Dioxide 29 (21-32) mmol/L Anion Gap 8 (3-11) BUN 17 (6-23) mg/dl Creatinine 1.06 (0.6-1.4) mg/dl Est Cr Clr Drug Dosing 60.2 ml/min Est GFR ( Amer) 77.0 ml/min Est GFR (Non-Af Amer) 66.4 ml/min BUN/Creatinine Ratio 16.0 (10-20) Glucose 88 (70-99(Fasting)) mg/dl Calcium 8.9 (8.5-10.1) mg/dl Total Bilirubin 1.8 H (0.2-1.0) mg/dl AST 24 (13-39) U/L ALT 12 (7-52) U/L Alkaline Phosphatase 115 H (34-104) U/L Troponin I High Sens 52.4 H* (0-20) pg/ml B-Natriuretic Peptide 808 H (0-100) pg/ml Total Protein 6.0 (6.0-8.3) gm/dl Albumin 3.7 (3.4-5.0) gm/dl Globulin 2.3 L (2.5-4.0) gm/dl Albumin/Globulin Ratio 1.6 (0.9-2) Imaging Data Radiologist's Impression: Chest X-Ray 01/03/22 11:45 XR chest 1V portable CLINICAL HISTORY: Dyspnea. COMPARISON STUDY: Chest radiograph February 11, 2020. Chest CT October 04, 2021. FINDINGS: Moderate cardiomegaly is unchanged. There is a prosthetic mitral valve. Emphysema is better depicted on prior chest CT. There is a possible trace right pleural effusion. Interstitial thickening is noted. There is no lobar c onsolidation. IMPRESSION: Cardiomegaly. Interstitial thickening which favors mild pulmonary edema. An infectious process could appear similar. Radiographic follow-up is recommended. ACT 112: Negative or not required by law. Electronically signed by: Osbaldo Milner M.D. 01/03/2022 12:30 PM Discharge Plan Visit Data Chief Complaint: Shortness of Breath/Dyspnea ED Provider: Aaron Jerry Discharge Problem: Cellulitis of right lower extremity, Elevated brain natriuretic peptide (BNP) level, Elevated troponin, Chills, Leukocytosis, Acute confusion Forms Stand Alone Forms: [facility] Prescriptions Prescriptions: No Action (DME) nebulizer accessories kit See Rx Instructions .ROUTE .MEDSUPPLY Qty: 1 0RF Rx Instructions: As directed. This is to be lifelong order. (DME) nebulizers [facility] See Rx Instructions [id number] .MEDSUPPLY Qty: 1 0RF Rx Instructions: As directed. Lifetime need atorvastatin 20 mg tablet 20 mg PO HS Qty: 90 3RF omeprazole 20 mg capsule,delayed release(DR/EC) 20 mg PO DAILY Qty: 90 3RF ipratropium-albuterol 0.5 mg-3 mg(2.5 mg base)/3 mL solution for nebulization 3 ml inhalation QID PRN (Reason: shortness of breath or wheezing) Qty: 360 5RF alfuzosin [Uroxatral] 10 mg tablet extended release 24 hr 10 mg PO DAILY Qty: 90 3RF Rx Instructions: administer after the same meal each day Symbicort 160-4.5 mcg/actuation HFA aerosol inhaler 2 puff INHALATION BID Qty: 10.2 5RF Hold Instructions: Med change Spiriva Respimat 2.5 mcg/actuation mist 2 puff INH DAILY Qty: 4 5RF Hold Instructions: Med change Eliquis 5 mg tablet See Rx Instructions .ROUTE .COMPLEX Qty: 180 3RF Dose Instruction: TAKE 1 TABLET BY MOUTH TWICE A DAY Rx Instructions: TAKE 1 TABLET BY MOUTH TWICE A DAY albuterol sulfate [Ventolin HFA] 90 mcg/actuation HFA aerosol inhaler 2 puff inhalation QID PRN (Reason: shortness of breath or wheezing) Qty: 18 5RF furosemide [Lasix] 40 mg tablet 40 mg PO DAILY Rx Instructions: additional 40mg PRN edema multivitamin [Daily Multi-Vitamin] Tablet 1 tab PO QAM metoprolol succinate 100 mg tablet extended release 24 hr 100 mg PO QPM (DME) Oxygen Home Liters Per Minute See Rx Instructions .ROUTE .MEDSUPPLY Qty: 2 0RF Rx Instructions: 2 L/min via nasal cannula to be used with exertion and at night when sleeping Referrals Referrals: Juan Ramos DO [Primary Care Provider] -
[2022-01-03] MEDS ORDERED: CLINDAMYCIN/D5W 600 MG/50 ML BAG IV ONE (13:44)
[2022-01-03] MEDS ORDERED: FUROSEMIDE 40 MG/4 ML VIAL IV ONE (13:57)
[2022-01-03] MEDS ORDERED: ONDANSETRON INJ 2 MG/ML 2 ML VIAL IV PRN (18:15)
[2022-01-03] MEDS ORDERED: ALUMINUM/MAGNESIUM SUSP 30 ML UDC PO PRN (18:15)
[2022-01-03] MEDS ORDERED: ACETAMINOPHEN 325 MG TAB PO PRN (18:15)
[2022-01-03] MEDS ORDERED: PIPERACILLIN/TAZOBACTAM 4.5 GM in DEXTROSE 5% 100 ML IV SCH (18:15)
[2022-01-03] MEDS ORDERED: PIPERACILLIN/TAZOBACTAM 3.375 GM in DEXTROSE 5% 100 ML IV ONE (19:30)
[2022-01-03 19:52] LABS: Bilirubin Direct 0.6 mg/dl (0-0.2); Troponin I High Sensitivity 81.4 pg/ml (0-20)
[2022-01-03] MEDS: ALBUT/IPRATROP 3MG/0.5MG NEB 3 ML VIAL INH SCH (19:57)
[2022-01-03] MEDS: APIXABAN 5 MG TABLET PO SCH (20:40)
[2022-01-03] MEDS: ATORVASTATIN 20 MG TAB PO SCH (20:40)
[2022-01-03] MEDS ORDERED: METOPROLOL SUCC 50MG EXT REL TAB PO SCH (21:00)
[2022-01-04] MEDS: PIPERACILLIN/TAZOBACTAM 3.375 GM in DEXTROSE 5% 100 ML IV SCH ×3 (01:03→17:46)
[2022-01-04] MEDS ORDERED: ASPIRIN 81 MG CHEW PO STA (02:50)
--- NOTE | 2022-01-04 05:35 | Communication Note ---
Date of Service: January 04, 2022 Troponin progressively elevated to >300 since admission. He remains chest pain free. Possibly demand in setting of acute illness. Will continue to trend. ASA 324mg x 1 given. Repeat ECG will be obtained. Resident Activity Tracking Resident Involvement: Resident Care Provided Care Provided: Adult Hospital Medicine
--- NOTE | 2022-01-04 06:00 | Electrocardiogram Report ---
Test Reason : Blood Pressure : / mmHG Vent. Rate : 097 BPM Atrial Rate : 102 BPM P-R Int : 000 ms QRS Dur : 138 ms QT Int : 340 ms P-R-T Axes : 000 093 -67 degrees QTc Int : 431 ms Atrial fibrillation with premature ventricular or aberrantly conducted complexes Right bundle branch block T wave abnormality, consider inferolateral ischemia Abnormal ECG When compared with ECG of 10-FEB-2020 12:07, No significant change Confirmed by Alf Chavez ([id number]) on 01/04/2022 6:00:02 AM Referred By: ER Confirmed By:Alf Chavez
[2022-01-04 06:40] LABS: Hematocrit (blood only) 31.9 % (40.1-51.0); Hemoglobin 10.1 g/dl (14.0-18.0); Mean Corpuscular Hemoglobin 31.1 pg (25.0-34.0); Mean Corpuscular Hgb Conc 31.7 g/dL (32.0-36.0); Mean Corpuscular Volume 98.2 fL (80.0-100.0); Platelet Count 89 K/uL (130-400); Platelet Estimate Decreased (Normal); RDW Coefficient of Variation 15.5 % (11.5-14.5); RDW Standard Deviation 56.4 fL (36.4-46.3); Red Blood Count 3.25 M/uL (4.63-6.08); White Blood Count 14.29 K/ul (4.8-10.8)
[2022-01-04 06:46] LABS: Albumin Level 3.3 gm/dl (3.4-5.0); BUN Creatinine Ratio 13.4 (10-20); Bilirubin Direct 0.6 mg/dl (0-0.2); Bilirubin,Total 1.5 mg/dl (0.2-1.0); Calcium 8.1 mg/dl (8.5-10.1); Creatinine Clr Calc Pharmacy 34.1 ml/min; Est GFR (African American) 38.8 ml/min; Est GFR (Non-African American) 33.4 ml/min; Potassium 4.2 mmol/L (3.5-5.1); Total Protein 5.2 gm/dl (6.0-8.3)
[2022-01-04] MEDS: ALBUT/IPRATROP 3MG/0.5MG NEB 3 ML VIAL INH SCH ×4 (07:30→20:08)
[2022-01-04] MEDS ORDERED: SODIUM CHLORIDE 0.9% 1000ML 250 ML IV ONE ×3 (08:17→18:52)
[2022-01-04] MEDS: APIXABAN 5 MG TABLET PO SCH ×2 (08:36→22:13)
[2022-01-04] MEDS: PANTOprazole 40 MG TAB PO SCH (08:36)
[2022-01-04] MEDS: UMECLIDINIUM BROMIDE 62.5MCG/BLISTER 7 PUFFS/INHALER INH SCH (08:36)
[2022-01-04] MEDS: FLUTICASONE/VILANTEROL 200/25MCG 14 PUFFS/INHALER INH SCH (08:36)
[2022-01-04] MEDS: predniSONE 20 MG TAB PO SCH (08:37)
[2022-01-04] MEDS: MULTIVITAMIN TAB PO SCH (08:37)
[2022-01-04] MEDS ORDERED: ALFUZOSIN HCL 10 MG TAB PO SCH (09:00)
[2022-01-04] MEDS ORDERED: FUROSEMIDE 40 MG TAB PO SCH (09:00)
--- NOTE | 2022-01-04 12:22 | Ultrasound Report ---
US liver CLINICAL HISTORY: elev bili, h/o cholecstitis tx medically 2020 TECHNIQUE: Multiple real-time sonographic images of the right upper quadrant were obtained. Comparison: Comparison is made to MRI abdomen 10/15/2021 FINDINGS: The liver is diffusely coarsened in echotexture, with a nodular contour. The liver appears shrunken i n appearance. These findings are suggestive of cirrhosis. No focal mass lesions are seen. No intr ahepatic ductal dilatation is seen. No stones are seen. The wall is mildly prominent at 4 mm. Some f ree fluid is seen about the gallbladder. There is vague diffuse abdominal tenderness which may be due to recent fall. The common duct measures 0.4 cm in diameter at the level of the hepatic artery. The visualized portions of the pancreas appear normal. The right kidney shows normal echogenicity, cortical thickness and renal contour. The right kidney sh ows no evidence of hydronephrosis or mass. Mild ascites is seen. IMPRESSION: Cirrhosis with mild ascites. Thickening of the gallbladder wall is favored to be reactive, given enzo ent's diffuse abdominal tenderness. If clinical suspicion remains, nuclear medicine HIDA scan can be performed. ACT 112: Negative or not required by law. Electronically signed by: Darion Lee M.D. 01/04/2022 12:20 PM
[2022-01-04 13:06] LABS: A calco-baum cmplx NotReported Not Detected (NotDetected); Bact fragilis Not Reported Not Detected (NotDetected); C auris Not Reported Not Detected (NotDetected); Calbicans Not Reported Not Detected (NotDetected); Candida glabrata Not Reported Not Detected (NotDetected); Candida krusei Not Reported Not Detected (NotDetected); Cneoformans/gatti Not Reported Not Detected (NotDetected); Cparapsilosis Not Reported Not Detected (NotDetected); Ctropicalis Not Reported Not Detected (NotDetected); E cloacae compx Not Reported Not Detected (NotDetected); Efaecalis Not Reported Not Detected (NotDetected); Efaecium Not Reported Not Detected (NotDetected); Enterobacterales Not Reported Not Detected (NotDetected); Escherichia coli Not Reported Not Detected (NotDetected); H influenzae Not Reported Not Detected (NotDetected); K aerogenes Not Reported Not Detected (NotDetected); Koxytoca Not Reported Not Detected (NotDetected); Kpneumoniae grp Not Reported Not Detected (NotDetected); Lmonocyt Not Reported Not Detected (NotDetected); N meningitidis Not Reported Not Detected (NotDetected); P aeruginosa Not Reported Not Detected (NotDetected); Proteus spp Not Reported Not Detected (NotDetected); Salmonella spp Not Reported Not Detected (NotDetected); Smarcescens Not Reported Not Detected (NotDetected); Staph lugdunensis Not Reported Not Detected (NotDetected); Staph spp. Not Reported Not Detected (NotDetected); Staphaureus Not Reported Not Detected (NotDetected); Staphepi Not Reported Not Detected (NotDetected); Stenmaltophilia Not Reported Not Detected (NotDetected); Strep agal(GrpB) Not Reported Not Detected (NotDetected); Strep pneum Not Reported Not Detected (NotDetected); Strep pyog (GrpA) Not Reported Not Detected (NotDetected); Strep spp Not Reported Not Detected (NotDetected)
[2022-01-04] MEDS: DAPTOmycin 450 MG in SYRINGE 0 ML IV SCH (14:21)
--- NOTE | 2022-01-04 15:39 | Infectious Disease Consult ---
Date of Consultation January 04, 2022 Consultation Information Consultation was provided via telemedicine using two-way real-time interactive telecommunication between the patient and the telemedicine provider. For the duration of the visit, the provider was performing the assessment from a different facility than the patient. This includesuse of bluetooth stethoscope forauscultationperformed by the telepresenter that the telemedicine provider can hear if described in the physical exam. [employer] E[employer]icator contact information: Please call [facility] . (Phone Number For Physician Use Only) History of Present Illness Attending Physician: Nain Snider History of Present Illness pt admitted Allergies Allergy/AdvReac Type Severity Reaction Status Date / Time cephalexin [From Keflex] Allergy Hives Unverified 01/03/22 13:03 Home Medications Medication Instructions Recorded Confirmed Type nebulizer accessories #1 ea 03/26/19 12/28/21 Rx nebulizers #1 ea 03/28/19 12/28/21 Rx multivitamin (Daily Multi-Vitamin 1 tab PO QAM 07/20/20 01/03/22 History tablet) atorvastatin 20 mg tablet 20 mg PO HS #90 tabs 12/25/20 01/03/22 Rx omeprazole 20 mg capsule,delayed 20 mg PO DAILY #90 caps 01/21/21 01/03/22 Rx release ipratropium 0.5 mg-albuterol 3 mg 3 ml inhalation QID PRN shortness 01/29/21 01/03/22 Rx (2.5 mg base)/3 mL nebulization of breath or wheezing #360 mL soln alfuzosin 10 mg tablet,extended 10 mg PO DAILY #90 tabs 07/13/21 01/03/22 Rx release 24 hr (Uroxatral) budesonide-formoterol HFA 160 2 puff inhalation BID #10.2 grams 09/27/21 Rx mcg-4.5 mcg/actuation aerosol inhaler (Symbicort) metoprolol succinate 100 mg 100 mg PO QPM 09/27/21 01/03/22 History tablet,extended release 24 hr Oxygen Home #2 L 10/14/21 12/28/21 Rx tiotropium bromide 2.5 2 puff inhalation DAILY #4 grams 10/15/21 01/03/22 Rx mcg/actuation mist for inhalation (Spiriva Respimat) apixaban 5 mg tablet (Eliquis) See Rx Instructions .Route 10/25/21 01/03/22 Rx .COMPLEX #180 tabs furosemide 40 mg tablet (Lasix) 40 mg PO DAILY 11/25/21 01/03/22 History albuterol sulfate 90 mcg/actuation 2 puff inhalation QID PRN 12/22/21 01/03/22 Rx aerosol inhaler (Ventolin HFA) shortness of breath or wheezing #18 grams Patient History Medical History Abnormal CT scan, chest Atrial fibrillation BPH with obstruction/lower urinary tract symptoms Chronic obstructive pulmonary disease Diverticulosis GERD (gastroesophageal reflux disease) Hernia, inguinal, left History of Mohs micrographic surgery for skin cancer Hyperlipidemia Hypertension NSTEMI (non-ST elevated myocardial infarction) SNHL (sensorineural hearing loss) Surgical History Fistula REPAIRED History of cardiac cath History of cardiac radiofrequency ablation 5-6 YEARS AGO ([facility] BY DR. YIN) History of colonoscopy History of heart valve replacement MITRAL VALVE REPLACED 3 YEARS AGO ([facility]) History of tonsillectomy History of tooth extraction Status post anal fissurectomy Status post Mohs surgery left cheek and left arm (squamous cell) Family History Father Family hx colonic polyps Mother Heart disease Other Hypertension Social History Smoking Status: Former smoker Tobacco Type: Cigarettes Age Started Using Tobacco: 17; Age Quit Using Tobacco: 62; packs per day: 2; Years Smoked: 45; Cigarettes Per Day: 40; Second Hand Exposure: No; Do You Dip or Chew Tobacco: No; Hx Alcohol Use: Yes Alcohol type: beer Alcohol Intake Frequency: 2-3 x/Week Hx Substance Use: No Preferred Language: Uruguayan Communication Ability: Effective Visual Impairment: Limited Hearing Ability: Normal 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 Beliefs That Will Affect Care: None marital status: Current Living Situation: Spouse current occupational status: retired Feels Safe at Home: Yes Childhood Exposure to Second-Hand Smoke: Yes caffeine: Yes Dental Care, Regularly: Yes Physical Activity Frequency: 1-2 Times per Week Physical Activity Frequency Comment: walks Seatbelt Use: always Sunscreen Use: Yes Do you think of yourself as: straight/heterosexual Assistive Devices: Nebulizer and Oxygen - at Night Results & Data ([facility]) Vital Signs (Past 12 Hours) Vital Signs Temp Pulse Pulse Resp BP Pulse Ox O2 Del Method 01/04/22 15:33 84 18 95 Nasal Cannula 01/04/22 12:00 Nasal Cannula 01/04/22 11:27 36.5 C 88 18 96/59 L 98 Nasal Cannula 01/04/22 10:59 62 18 93 Nasal Cannula 01/04/22 07:55 36.4 C L 84 20 93/57 L 99 Nasal Cannula 01/04/22 07:30 76 18 98 Nasal Cannula 01/04/22 06:20 64 01/04/22 04:39 36.6 C 60 18 89/51 L 100 01/04/22 04:30 93/56 L O2 Flow Rate 01/04/22 15:33 2 01/04/22 12:00 2 01/04/22 11:27 2 01/04/22 10:59 2 01/04/22 07:55 2 01/04/22 07:30 2 01/04/22 06:20 01/04/22 04:39 2 01/04/22 04:30
[2022-01-04] MEDS: NYSTATIN SUSP 500,000 U/5 ML UDC PO SCH ×2 (16:24→22:15)
--- NOTE | 2022-01-04 16:34 | Infectious Disease Consult ---
Date of Consultation January 04, 2022 Assessment & Plan Plan Gayle Le M.D. [facility] Pager Consultation Information Consultation was provided via telemedicine using two-way real-time interactive telecommunication between the patient and the telemedicine provider. For the duration of the visit, the provider was performing the assessment from a different facility than the patient. This includesuse of bluetooth stethoscope forauscultationperformed by the telepresenter that the telemedicine provider can hear if described in the physical exam. Risk Management Manager contact information: Please call [facility] Connect Call Center [phone]. (Phone Number For Physician Use Only) History of Present Illness Attending Physician: Nain Snider Allergies Allergy/AdvReac Type Severity Reaction Status Date / Time cephalexin [From Keflex] Allergy Hives Unverified 01/03/22 13:03 Home Medications Medication Instructions Recorded Confirmed Type nebulizer accessories #1 ea 03/26/19 12/28/21 Rx nebulizers #1 ea 03/28/19 12/28/21 Rx multivitamin (Daily Multi-Vitamin 1 tab PO QAM 07/20/20 01/03/22 History tablet) atorvastatin 20 mg tablet 20 mg PO HS #90 tabs 12/25/20 01/03/22 Rx omeprazole 20 mg capsule,delayed 20 mg PO DAILY #90 caps 01/21/21 01/03/22 Rx release ipratropium 0.5 mg-albuterol 3 mg 3 ml inhalation QID PRN shortness 01/29/21 01/03/22 Rx (2.5 mg base)/3 mL nebulization of breath or wheezing #360 mL soln alfuzosin 10 mg tablet,extended 10 mg PO DAILY #90 tabs 07/13/21 01/03/22 Rx release 24 hr (Uroxatral) budesonide-formoterol HFA 160 2 puff inhalation BID #10.2 grams 09/27/21 01/03/22 Rx mcg-4.5 mcg/actuation aerosol inhaler (Symbicort) metoprolol succinate 100 mg 100 mg PO QPM 09/27/21 01/03/22 History tablet,extended release 24 hr Oxygen Home #2 L 10/14/21 12/28/21 Rx tiotropium bromide 2.5 2 puff inhalation DAILY #4 grams 10/15/21 01/03/22 Rx mcg/actuation mist for inhalation (Spiriva Respimat) apixaban 5 mg tablet (Eliquis) See Rx Instructions .Route 10/25/21 01/03/22 Rx .COMPLEX #180 tabs furosemide 40 mg tablet (Lasix) 40 mg PO DAILY 11/25/21 01/03/22 History albuterol sulfate 90 mcg/actuation 2 puff inhalation QID PRN 12/22/21 01/03/22 Rx aerosol inhaler (Ventolin HFA) shortness of breath or wheezing #18 grams Patient History Medical History Abnormal CT scan, chest Atrial fibrillation BPH with obstruction/lower urinary tract symptoms Chronic obstructive pulmonary disease Diverticulosis GERD (gastroesophageal reflux disease) Hernia, inguinal, left History of Mohs micrographic surgery for skin cancer Hyperlipidemia Hypertension NSTEMI (non-ST elevated myocardial infarction) SNHL (sensorineural hearing loss) Surgical History Fistula REPAIRED History of cardiac cath History of cardiac radiofrequency ablation 5-6 YEARS AGO ([facility] BY DR. 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) Family History Father Family hx colonic polyps Mother Heart disease Other Hypertension Social History Smoking Status: Former smoker Tobacco Type: Cigarettes Age Started Using Tobacco: 17; Age Quit Using Tobacco: 62; packs per day: 2; Years Smoked: 45; Cigarettes Per Day: 40; Second Hand Exposure: No; Do You Dip or Chew Tobacco: No; Hx Alcohol Use: Yes Alcohol type: beer Alcohol Intake Frequency: 2-3 x/Week Hx Substance Use: No Preferred Language: Haitian Communication Ability: Effective Visual Impairment: Limited Hearing Ability: Normal Vehicle Return Associate Required: No Beliefs That Will Affect Care: None marital status: Current Living Situation: Spouse current occupational status: retired Feels Safe at Home: Yes Childhood Exposure to Second-Hand Smoke: Yes caffeine: Yes Dental Care, Regularly: Yes Physical Activity Frequency: 1-2 Times per Week Physical Activity Frequency Comment: walks Seatbelt Use: always Sunscreen Use: Yes Do you think of yourself as: straight/heterosexual Assistive Devices: Nebulizer and Oxygen - at Night Physical Exam Physical Exam: PE: Gen: Awake, alert, oriented HEENT: anicteric, mmm, neck supple CV: RRR +S1, S2, no appreciated murmurs Lungs: CTA b/l, no w/r/r Abd: Soft, NT/ND Extr: no c/c/e Skin: IV Results & Data ([facility]) Vital Signs (Past 12 Hours) Vital Signs Temp Pulse Pulse Resp BP Pulse Ox O2 Del Method 01/04/22 16:03 36.5 C 102 H 18 109/66 98 Room Air 01/04/22 14:26 98 H 01/04/22 15:33 84 18 95 Nasal Cannula 01/04/22 12:00 Nasal Cannula 01/04/22 11:27 36.5 C 88 18 96/59 L 98 Nasal Cannula 01/04/22 10:59 62 18 93 Nasal Cannula 01/04/22 07:55 36.4 C L 84 20 93/57 L 99 Nasal Cannula 01/04/22 07:30 76 18 98 Nasal Cannula 01/04/22 06:20 64 01/04/22 04:39 36.6 C 60 18 89/51 L 100 O2 Flow Rate 01/04/22 16:03 01/04/22 14:26 01/04/22 15:33 2 01/04/22 12:00 2 01/04/22 11:27 2 01/04/22 10:59 2 01/04/22 07:55 2 01/04/22 07:30 2 01/04/22 06:20 01/04/22 04:39 2
[2022-01-04 18:44] LABS: BUN Creatinine Ratio 18.5 (10-20); Calcium 8.4 mg/dl (8.5-10.1); Creatinine Clr Calc Pharmacy 35.8 ml/min; Est GFR (African American) 41.1 ml/min; Est GFR (Non-African American) 35.5 ml/min; Potassium 3.6 mmol/L (3.5-5.1)
--- NOTE | 2022-01-04 20:56 | Hospitalist Progress Note ---
Date of Service January 04, 2022 Assessment & Plan (1) Sepsis: Plan: 2nd to RLE cellulitis. severe - associated ATN, lactic acidosis, hypotension, etc. can't rule out element of pneumonia but less likely. cont zosyn. add daptomycin (in [place] of vanco given his YANIRA/ATN). follow blood cultures. address hypotension as below. (2) Cellulitis: Plan: RLE. improved per pt and his family. cont zosyn. add daptomycin. rx #1 above. follow blood cx's. supportive care. (3) ATN (acute tubular necrosis): Plan: sepsis-associated ATN. can't rule out element of obstruction but less likely. check ua and urine cx. placed sutton. address low BP. BMP tonight shows creatinine has leveled at about 1.7/1.8. repeat BMP am. follow UOP. (4) Hypotension: Plan: 2nd to severe sepsis s/p 3 boluses of 250cc NS each time tolerated such without pulmonary edema BPs improved with this HOLDING metoprolol, alpha dillan, and lasix (5) Acute metabolic encephalopathy: Plan: 2nd sepsis improved (6) Chronic obstructive pulmonary disease: Plan: with possible mild exacerbation s/p IV solumedrol in ER yesterday now on daily prednisone 40mg will leave prednisone for now cont bronchodilators previous cxr with ? infiltrates (7) Chronic systolic (congestive) heart failure: Plan: EF 40-45% based on records patient is intravascularly volume contracted in the setting of sepsis and poor po intake (he also doubled his lasix for 1 week prior to admission) HOLD diuretics address low BPs (8) Atrial fibrillation: Plan: rates controlled but need to hold metoprolol due to low BP cont eliquis albeit cautiously with new hematuria (9) Elevated bilirubin: Plan: 2019 the patient had severe cholecystitis which was treated with cholecystostomy tube and not cholecystectomy. The patient recovered from that episode. u/s of liver today with cirrhosis but no acute cholecystitis findings thus biliary tract cause of his sepsis not found. cirrhosis - cardiac in etiology? TANNER? (10) BPH with obstruction/lower urinary tract symptoms: Plan: hold alpha dillan due to hypotension sutton placed (11) Elevated troponin: Plan: no evidence of ACS this is likely myocardial demand ischemia in setting of sepsis trend until peak is seen (12) Hematuria: Plan: 2nd to sutton trauma during sutton insertion in the setting of BPH? other? allow urine to clear cont eliquis cautiously but low threshold to hold it check u/a and urine cx (13) Cirrhosis: Plan: as seen on u/s today prior CT a/p in 2019 with early cirrhosis changes etiology? TANNER? 2nd to "cardiac" cirrhosis? mild ascites seen this will need to be addressed after acute issues have resolved Plan family updated at bedside total time today about 75 minutes - multiple bedside visits, complex care coordination of severe sepsis and hypotension, etc Admission and Anticipated Discharge Date Admission Date: January 03, 2022 Subjective multiple visits to pt's room today first was during AM rounds and pt's brother both at bedside patient c/o being thirsty also c/o right distal leg pain - although perhaps modestly better than yesterday thinks the appearance of right leg looks better today patient denies significant dyspnea at rest no orthopnea he is very tired BPs during the visit thus far very low -- all BP meds and diuretics held gave 250cc saline bolus x 3 times today over the course of the day with systolic BP >100 finally patient could not void late in the day - sutton placed hematuria noted by staff Review of Systems Review of Systems: gen - had chills yesterday but none today; poor appetite, fatigue cv - no chest pain, no orthopnea pulm - no dyspnea; mild cough only GI - no abd pain or nausea - difficulty voiding musculo - denies myalgias Physical Exam Physical Exam: gen - looks sickly, tired - but NAD, and oriented neck - flat neck veins/no JVD mouth - severely dry MM; thrush on tongue heart - irregular, s1 s2, 1/6 systolic murmur LSB lungs - decreased BS bases, otherwise CTA b/l abd - distended (ascites?); BS+; NT; no HSM ext - <1+ edema b/l, pulses 2+ b/l, cap refill < 2 sec skin - extensive ecchymoses on arms and some on legs; cellulitis of erythema starting just below right knee extending to about the ankle; on posterior right calf there is slight skin tear; healing ulceration on left valdes psych - a/o x 3 Results & Data Results & Data ([facility]) Vital Signs (Past 12 Hours) Vital Signs Temp Pulse Pulse Resp BP Pulse Ox O2 Del Method 09/27/22 20:08 76 18 95 Nasal Cannula 01/04/22 19:23 37.1 C 99 H 20 120/73 98 01/04/22 16:03 36.5 C 102 H 18 109/66 98 Room Air 01/04/22 14:26 98 H 01/04/22 15:33 84 18 95 Nasal Cannula 01/04/22 12:00 Nasal Cannula 01/04/22 11:27 36.5 C 88 18 96/59 L 98 Nasal Cannula 01/04/22 10:59 62 18 93 Nasal Cannula O2 Flow Rate 01/04/22 20:08 2 01/04/22 19:23 2 01/04/22 16:03 01/04/22 14:26 01/04/22 15:33 2 01/04/22 12:00 2 01/04/22 11:27 2 01/04/22 10:59 2 Laboratory Results Laboratory Results - last 24 hr 01/03/22 01/04/22 01/04/22 13:02 01:29 05:22 WBC 14.29 H RBC 3.25 L Hgb 10.1 L Hct 31.9 L MCV 98.2 MCH 31.1 MCHC 31.7 L RDW Std Deviation 56.4 H RDW Coeff of Kamron 15.5 H Plt Count 89 L MPV 13.0 H Platelet Estimate Decreased L Sodium Potassium Chloride Carbon Dioxide Anion Gap BUN Creatinine Est Cr Clr Drug Dosing Est GFR ( Amer) Est GFR (Non-Af Amer) BUN/Creatinine Ratio Glucose Lactate Calcium Total Bilirubin Direct Bilirubin AST ALT Alkaline Phosphatase Troponin I High Sens 345.3 H* D C-Reactive Protein Total Protein Albumin Procalcitonin Bld Cult ID Panel PCR PCR Panel Negative 01/04/22 01/04/22 01/04/22 05:22 05:22 05:29 WBC RBC Hgb Hct MCV MCH MCHC RDW Std Deviation RDW Coeff of Kamron Plt Count MPV Platelet Estimate Sodium 135 L Potassium 4.2 Chloride 100 Carbon Dioxide 27 Anion Gap 8 BUN 25 H Creatinine 1.87 H D Est Cr Clr Drug Dosing 34.1 Est GFR ( Amer) 38.8 Est GFR (Non-Af Amer) 33.4 BUN/Creatinine Ratio 13.4 Glucose 158 H Lactate Calcium 8.1 L Total Bilirubin 1.5 H Direct Bilirubin 0.6 H AST 23 ALT 11 Alkaline Phosphatase 75 Troponin I High Sens 423.0 H* D C-Reactive Protein 13.11 H Total Protein 5.2 L Albumin 3.3 L Procalcitonin 4.54 H Bld Cult ID Panel PCR 01/04/22 01/04/22 01/04/22 17:55 17:55 17:55 WBC RBC Hgb Hct MCV MCH MCHC RDW Std Deviation RDW Coeff of Kamron Plt Count MPV Platelet Estimate Sodium 137 Potassium 3.6 Chloride 100 Carbon Dioxide 28 Anion Gap 9 BUN 33 H Creatinine 1.78 H Est Cr Clr Drug Dosing 35.8 Est GFR ( Amer) 41.1 Est GFR (Non-Af Amer) 35.5 BUN/Creatinine Ratio 18.5 Glucose 150 H Lactate 3.8 H* Calcium 8.4 L Total Bilirubin Direct Bilirubin AST ALT Alkaline Phosphatase Troponin I High Sens 315.1 H* D C-Reactive Protein Total Protein Albumin Procalcitonin Bld Cult ID Panel PCR Diagnostic Findings blood cx's negative to date Liver Ultrasound 01/04/22 00:00 US liver CLINICAL HISTORY: elev bili, h/o cholecstitis tx medically 2020 TECHNIQUE: Multiple real-time sonographic images of the right upper quadrant were obtained. Comparison: Comparison is made to MRI abdomen 10/15/2021 FINDINGS: The liver is diffusely coarsened in echotexture, with a nodular contour. The liver appears shrunken in appearance. These findings are suggestive of cirrhosis. No focal mass lesions are seen. No intrahepatic ductal dilatation is seen. No stones are seen. The wall is mildly prominent at 4 mm. Some free fluid is seen about the gallbladder. There is vague diffuse abdominal tenderness which may be due to recent fall. The common duct measures 0.4 cm in diameter at the level of the hepatic artery. The visualized portions of the pancreas appear normal. The right kidney shows normal echogenicity, cortical thickness and renal contour. The right kidney shows no evidence of hydronephrosis or mass. Mild ascites is seen. IMPRESSION: Cirrhosis with mild ascites. Thickening of the gallbladder wall is favored to be reactive, given patient's diffuse abdominal tenderness. If clinical suspicion remains, nuclear medicine HIDA scan can be performed. ACT 112: Negative or not required by law. Electronically signed by: Darion Lee M.D. 01/04/2022 12:20 PM PG Care Time/CCT Total # of Minutes Spent Total Time Spent with Patient: Total time spent is greater than 50% in coordination of care (as documented) at patient's floor/unit and/or counseling patient: Prolonged Care Time Prolonged Care Time: Yes Total Prolonged Care Time: 75 Coding Level of Care Code 10968 Subseq Hosp Care Lvl 3 (25 - SIGNIFICANT, SEPARATELY IDENTIFIABLE ) Diagnoses Sepsis A41.9 Cellulitis L03.90 ATN (acute tubular necrosis) N17.0 Hypotension I95.9 Acute metabolic encephalopathy G93.41 Chronic obstructive pulmonary disease J44.9 Chronic systolic (congestive) heart failure I50.22 Atrial fibrillation I48.21 Atrial fibrillation type: permanent Elevated bilirubin R17 BPH with obstruction/lower urinary tract symptoms N40.1; N13.8 Elevated troponin R77.8 Hematuria R31.9 Cirrhosis K74.60 Additional Codes Prolonged Care Time - Prolonged Care Time: Yes ([id number]) Time Spent (min) 75 (1) Atrial fibrillation Atrial fibrillation type: permanent Qualified Code(s): I48.21 - Permanent atrial fibrillation
--- NOTE | 2022-01-04 22:22 | Communication Note ---
Date of Service: January 04, 2022 Notified by patient's RN that patient's Mi continues draining what appears to be caery blood intermixed with urine. Mi in place because of difficulty voiding on admission - does not usually have this at home. Does have BPH w/ LUTS per chart review Received report that thoughts from primary team was that this was likely secondary to insertional trauma in the context of Eliquis use. Estimated output today is approx. ~400-500cc per RN Thankfully he has no suprapubic or groin pain. Mi continues to drain. Vitals stable. On Telemetry. Noted that since admission patient has ~1 point drop in Hgb - though in context of positive fluid balance. Will place Eliquis on hold beginning tonight. No indication for immediate reversal at this time. Check CBC in AM. Defer to day team re: resumption of Eliquis if output slows, CBC stable, and further consults/interventions Continue flushing Mi in interim
--- NOTE | 2022-01-04 23:03 | Electrocardiogram Report ---
Test Reason : Blood Pressure : / mmHG Vent. Rate : 059 BPM Atrial Rate : 035 BPM P-R Int : 000 ms QRS Dur : 142 ms QT Int : 502 ms P-R-T Axes : 000 094 -73 degrees QTc Int : 496 ms Atrial fibrillation with slow ventricular response Right bundle branch block T wave abnormality, consider inferolateral ischemia Abnormal ECG When compared with ECG of 03-JAN-2022 11:37, Vent. rate has decreased BY 38 BPM QT has lengthened Confirmed by Alf Chavez ([id number]) on 01/04/2022 11:03:00 PM Referred By: REFERRED SELF Confirmed By:Alf Chavez
[2022-01-05] MEDS: PIPERACILLIN/TAZOBACTAM 3.375 GM in DEXTROSE 5% 100 ML IV SCH ×3 (02:54→17:33)
[2022-01-05 06:32] LABS: Hematocrit (blood only) 30.3 % (40.1-51.0); Hemoglobin 10.1 g/dl (14.0-18.0); Mean Corpuscular Hemoglobin 31.8 pg (25.0-34.0); Mean Corpuscular Hgb Conc 33.3 g/dL (32.0-36.0); Mean Corpuscular Volume 95.3 fL (80.0-100.0); Mean Platelet Volume 12.7 fL (9.4-12.4); Platelet Count 81 K/uL (130-400); RDW Coefficient of Variation 15.1 % (11.5-14.5); RDW Standard Deviation 52.9 fL (36.4-46.3); Red Blood Count 3.18 M/uL (4.63-6.08); White Blood Count 13.01 K/ul (4.8-10.8)
[2022-01-05] MEDS: ALBUT/IPRATROP 3MG/0.5MG NEB 3 ML VIAL INH SCH ×4 (07:07→19:16)
[2022-01-05 07:43] LABS: BUN Creatinine Ratio 24.4 (10-20); Calcium 8.5 mg/dl (8.5-10.1); Creatinine Clr Calc Pharmacy 48.7 ml/min; Est GFR (African American) 59.6 ml/min; Est GFR (Non-African American) 51.4 ml/min; Potassium 3.8 mmol/L (3.5-5.1)
[2022-01-05] MEDS: NYSTATIN SUSP 500,000 U/5 ML UDC PO SCH ×4 (09:11→20:02)
[2022-01-05] MEDS: PANTOprazole 40 MG TAB PO SCH (09:13)
[2022-01-05] MEDS: predniSONE 20 MG TAB PO SCH (09:13)
[2022-01-05] MEDS: MULTIVITAMIN TAB PO SCH (09:13)
[2022-01-05] MEDS: FLUTICASONE/VILANTEROL 200/25MCG 14 PUFFS/INHALER INH SCH (09:16)
[2022-01-05] MEDS: UMECLIDINIUM BROMIDE 62.5MCG/BLISTER 7 PUFFS/INHALER INH SCH (09:16)
[2022-01-05 13:01] LABS: Appearance Urine Cloudy (Clear); Specific Gravity Urine 1.024 (1.000-1.030)
[2022-01-05 13:02] LABS: Color Urine Red
[2022-01-05 13:07] LABS: RBC Urine >30 /hpf (0-4)
[2022-01-05 13:08] LABS: Bacteria Urine Negative (Negative); WBC Urine >30 /hpf (0-5)
[2022-01-05] MEDS ORDERED: DIGOXIN 250 MCG in SYRINGE 9 ML IV STA (13:11)
--- NOTE | 2022-01-05 13:12 | Hospitalist Progress Note ---
Date of Service January 05, 2022 Assessment & Plan (1) Bacteremia: Plan: admission blood cultures with gram negative rods. will repeat his blood cultures today. send urine culture to be complete but most obvious source is his RLE cellulitis. with his extensive medical problems not unusual to have a gram neg shawanda cause cellulitis. gall bladder was looked at with RUQ u/s yesterday - no signs of cholecystitis. cxr without discrete pneumonia. continue zosyn until GNR is identified and sensitivites are available. (2) Sepsis: Plan: presumed 2nd to RLE cellulitis. severe sepsis, with associated ATN, lactic acidosis, hypotension, etc. doubt UTI but urine cx pending. doubt pneumonia although consider repeat cxr. cont zosyn. cont daptomycin (in [place] of vanco given his YANIRA/ATN) in light of severity of his RLE cellulitis. follow blood cultures as in #1 above. (3) Cellulitis: Plan: RLE. slowly improving. cont zosyn. cont daptomycin. supportive care. elevate leg when in bed. follow all cultures. (4) ATN (acute tubular necrosis): Plan: sepsis-associated ATN. can't rule out element of obstruction but less likely. placed sutton yesterday. creatinine improved today to 1.3. repeat BMP in am. (5) Hypotension: Plan: 2nd to severe sepsis - resolved. s/p 3 boluses of 250cc NS each time on 01/04/22 tolerated such without pulmonary edema Cont to hold metoprolol, alpha dillan, and lasix (6) Acute metabolic encephalopathy: Plan: 2nd sepsis improved/resolved (7) Chronic obstructive pulmonary disease: Plan: with possible mild exacerbation s/p IV solumedrol in ER at time of presentation now on daily prednisone 40mg will leave prednisone for now - no wean today given his wheezing cont bronchodilators previous cxr with ? infiltrates will repeat a cxr in am cont combivent QID (8) Chronic systolic (congestive) heart failure: Plan: EF 40-45% based on records patient was intravascularly volume contracted in the setting of sepsis and poor po intake yesterday volume status improved today would not give additional IV fluids moving foward hold diuretics again today repeat labs and exam tomorrow (9) Atrial fibrillation: Plan: rates uncontrolled due to having to hold metoprolol in the setting of low BP BPs improved but not robust consistently for rate control give digoxin 0.25mg IV x 2 doses today and re-eval in am holding eliquis due to ongoing hematuria hopefully can resume metoprolol tomorrow if BPs will allow (10) Elevated bilirubin: Plan: 2019 the patient had severe cholecystitis which was treated with cholecystostomy tube and not cholecystectomy. The patient recovered from that episode. u/s of liver yesterday with cirrhosis but no acute cholecystitis findings thus biliary tract cause of his sepsis not found. cirrhosis - cardiac in etiology? TANNER? 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: Plan: holding alpha dillan due to hypotension sutton placed 01/04 since placing sutton he has had hematuria did not have hematuria prior to the sutton suspect bleeding/hematuria is from prostatic irritation MRI abdomen without urinary tract pathology in October 2021 - no kidneys stones, etc eliquis on hold hopefully hematuria resolves next 24 hours with supportive care H/H remain stable event despite hematuria repeat CBC in am (12) Elevated troponin: Plan: no evidence of ACS this is likely myocardial demand ischemia in setting of sepsis (13) Hematuria: Plan: 2nd to sutton trauma during sutton insertion in the setting of BPH? if so the hematuria is likely from the prostate again MRI abdomen in October 2021 was without kidney stones, bladder stones, etc allow urine to clear urine cx pending holding Eliquis hopefully hematuria will clear over the next 1-2 days as Eliquis exits his system if hematuria worsens or persists -- urology consultation (14) Cirrhosis: Plan: as seen on u/s prior CT a/p in 2019 with early cirrhosis changes etiology? TANNER? 2nd to "cardiac" cirrhosis this will need to be addressed after acute issues have resolved Plan pt's updated by phone this evening needs PT/OT Admission and Anticipated Discharge Date Admission Date: January 03, 2022 Subjective patient feels slightly better than yesterday still quite tired and appetite is poor - however, he states he "usually doesn't eat that great even at home" feels a bit more wheezy today than yesterday no chest pain mild cough no abd pain no nausea/emesis right leg/ankle pain still present but "not as bad" as yesterday tele overnight - a.fib rates now >100 urine in sutton bag continues to be [place] red Review of Systems Review of Systems: gen - no fevers or chills cv - no pain pulm - no dyspnea at rest - just wheezes GI - no diarrhea Physical Exam Physical Exam: gen - color is a little better today; looks better overall; NAD neck - still no JVD mouth - MM more moist today; thrush on tongue improved heart - irregular, s1 s2, tachy; 1/6 systolic murmur LSB lungs - decreased BS bases, mild end-exp wheezes b/l, no rales abd - distended with probable ascites; BS+; NT; no HSM ext - 1+ edema b/l a little worse on right; pulses 2+ b/l, cap refill < 2 sec skin - extensive ecchymoses on arms; cellulitis of erythema starting just below right knee extending to about the ankle - modestly improved today; healing ulceration on left valdes psych - a/o x 3 Results & Data Results & Data ([facility]) Vital Signs (Past 12 Hours) Vital Signs Temp Pulse Pulse Resp BP BP Pulse Ox 01/05/22 06:16 81 01/05/22 11:00 36.5 C 98 H 20 102/57 L 98 01/05/22 11:02 96 H 18 99 01/05/22 10:33 36.5 C 105 H 21 117/70 96 01/05/22 10:32 01/05/22 07:08 112 H 18 93 01/05/22 03:24 37.0 C 98 H 18 104/71 99 O2 Del Method O2 Flow Rate 01/05/22 06:16 01/05/22 11:00 Nasal Cannula 2 01/05/22 11:02 Nasal Cannula 2 01/05/22 10:33 Nasal Cannula 2 01/05/22 10:32 Nasal Cannula 2 01/05/22 07:08 Room Air 01/05/22 03:24 Nasal Cannula 1 Laboratory Results Laboratory Results - last 24 hr 01/04/22 01/04/22 01/04/22 17:55 17:55 17:55 WBC RBC Hgb Hct MCV MCH MCHC RDW Std Deviation RDW Coeff of [place] Plt Count MPV Sodium 137 Potassium 3.6 Chloride 100 Carbon Dioxide 28 Anion Gap 9 BUN 33 H Creatinine 1.78 H Est Cr Clr Drug Dosing 35.8 Est GFR ( Amer) 41.1 Est GFR (Non-Af Amer) 35.5 BUN/Creatinine Ratio 18.5 Glucose 150 H Lactate 3.8 H* Calcium 8.4 L Troponin I High Sens 315.1 H* D Urine Color Urine Appearance Urine pH Ur Specific [place] Urine Protein Urine Glucose (UA) Urine Ketones Urine Blood Urine Nitrite Urine Bilirubin Urine Urobilinogen Ur Leukocyte Esterase Urine RBC Urine WBC Ur Epithelial Cells Urine Bacteria 01/05/22 01/05/22 01/05/22 05:38 05:38 12:10 WBC 13.01 H RBC 3.18 L Hgb 10.1 L Hct 30.3 L MCV 95.3 MCH 31.8 MCHC 33.3 RDW Std Deviation 52.9 H RDW Coeff of [place]ron 15.1 H Plt Count 81 L MPV 12.7 H Sodium 135 L Potassium 3.8 Chloride 100 Carbon Dioxide 27 Anion Gap 8 BUN 32 H Creatinine 1.31 D Est Cr Clr Drug Dosing 48.7 Est GFR ( Amer) 59.6 Est GFR (Non-Af Amer) 51.4 BUN/Creatinine Ratio 24.4 H Glucose 134 H Lactate Calcium 8.5 Troponin I High Sens Urine Color Red Urine Appearance Cloudy A Urine pH Ur Specific [place] 1.024 Urine Protein Urine Glucose (UA) Urine Ketones Urine Blood Urine Nitrite Urine Bilirubin Urine Urobilinogen Ur Leukocyte Esterase Urine RBC >30 H Urine WBC >30 H Ur Epithelial Cells 5-10 H Urine Bacteria Negative Diagnostic Findings admission blood cx's -- gram negative rods PG Care Time/CCT Total # of Minutes Spent Total Time Spent with Patient: Total time spent is greater than 50% in coordination of care (as documented) at patient's floor/unit and/or counseling patient: Coding Level of Care Code 19309 Subseq Hosp Care Lvl 3 Diagnoses Bacteremia R78.81 Sepsis A41.9 Cellulitis L03.90 ATN (acute tubular necrosis) N17.0 Hypotension I95.9 Acute metabolic encephalopathy G93.41 Chronic obstructive pulmonary disease J44.9 Chronic systolic (congestive) heart failure I50.22 Atrial fibrillation I48.21 Atrial fibrillation type: permanent Elevated bilirubin R17 BPH with obstruction/lower urinary tract symptoms N40.1; N13.8 Elevated troponin R77.8 Hematuria R31.9 Cirrhosis K74.60 (1) Atrial fibrillation Atrial fibrillation type: permanent Qualified Code(s): I48.21 - Permanent atrial fibrillation
[2022-01-05] MEDS: DAPTOmycin 450 MG in SYRINGE 0 ML IV SCH (13:49)
[2022-01-05] MEDS ORDERED: DIGOXIN 250 MCG in SYRINGE 9 ML IV ONE (20:00)
[2022-01-06] MEDS: PIPERACILLIN/TAZOBACTAM 3.375 GM in DEXTROSE 5% 100 ML IV SCH ×3 (01:07→17:23)
[2022-01-06 07:12] LABS: Hematocrit (blood only) 28.3 % (40.1-51.0); Hemoglobin 9.4 g/dl (14.0-18.0); Mean Corpuscular Hemoglobin 31.5 pg (25.0-34.0); Mean Corpuscular Hgb Conc 33.2 g/dL (32.0-36.0); RDW Coefficient of Variation 14.9 % (11.5-14.5); RDW Standard Deviation 51.8 fL (36.4-46.3); Red Blood Count 2.98 M/uL (4.63-6.08); White Blood Count 11.22 K/ul (4.8-10.8)
[2022-01-06] MEDS: ALBUT/IPRATROP 3MG/0.5MG NEB 3 ML VIAL INH SCH ×4 (07:14→20:25)
[2022-01-06 07:15] LABS: Mean Platelet Volume 13.3 fL (9.4-12.4); Platelet Count 80 K/uL (130-400)
[2022-01-06 07:36] LABS: Calcium 8.7 mg/dl (8.5-10.1); Creatinine Clr Calc Pharmacy 63.8 ml/min; Est GFR (African American) 82.6 ml/min; Est GFR (Non-African American) 71.3 ml/min; Potassium 3.5 mmol/L (3.5-5.1)
[2022-01-06] MEDS: PANTOprazole 40 MG TAB PO SCH (08:42)
[2022-01-06] MEDS: FLUTICASONE/VILANTEROL 200/25MCG 14 PUFFS/INHALER INH SCH (08:42)
[2022-01-06] MEDS: MULTIVITAMIN TAB PO SCH (08:42)
[2022-01-06] MEDS: NYSTATIN SUSP 500,000 U/5 ML UDC PO SCH ×4 (08:42→20:36)
[2022-01-06] MEDS: predniSONE 20 MG TAB PO SCH (08:42)
[2022-01-06] MEDS: UMECLIDINIUM BROMIDE 62.5MCG/BLISTER 7 PUFFS/INHALER INH SCH (08:43)
[2022-01-06] MEDS: METOPROLOL TARTRATE 25 MG TAB PO SCH ×2 (09:52→20:38)
[2022-01-06] MEDS: DAPTOmycin 450 MG in SYRINGE 0 ML IV SCH (13:28)
--- NOTE | 2022-01-06 20:49 | Hospitalist Progress Note ---
Date of Service January 06, 2022 Assessment & Plan (1) Bacteremia: Plan: admission blood cultures with gram negative rods. repeat blood cultures to date negative. source - RLE cellulitis. urine unlikely source (and culture negative). gall bladder was looked at with RUQ u/s - no signs of cholecystitis. cxr without discrete pneumonia. continue zosyn until GNR is identified and sensitivities are available. (2) Sepsis: Plan: presumed 2nd to RLE cellulitis. severe sepsis, with associated ATN, lactic acidosis, hypotension, etc. doubt UTI or pneumonia cont zosyn. cont daptomycin (in [place] of vanco given his YANIRA/ATN) in light of severity of his RLE cellulitis. follow blood cultures as in #1 above. (3) Cellulitis: Plan: RLE. improving. cont zosyn. cont daptomycin. supportive care. elevate leg when in bed. follow all cultures. I will ask wound care to consider tubigrip stocking to RLE to help with edema. (4) ATN (acute tubular necrosis): Plan: sepsis-associated ATN. can't rule out element of obstruction but less likely. resolved. repeat BMP am. can resume lasix tomorrow if Cr is stable. BMP in am (5) Hypotension: Plan: 2nd to severe sepsis - resolved. s/p 3 boluses of 250cc NS each time on 01/04/22 tolerated such without pulmonary edema resume metoprolol albeit at low dose of 12.5mg BID (tartrate) hold alpha dillan & lasix (6) Acute metabolic encephalopathy: Plan: 2nd sepsis resolved (7) Chronic obstructive pulmonary disease: Plan: with possible mild exacerbation s/p IV solumedrol in ER at time of presentation now on daily prednisone 40mg wean to 30mg in am tomorrow cont bronchodilators previous cxr with ? infiltrates will repeat a cxr in am cont combivent QID (8) Chronic systolic (congestive) heart failure: Plan: EF 40-45% based on records patient was intravascularly volume contracted in the setting of sepsis and poor po intake at time of admission s/p saline boluses now euvolemic or slightly volume up if labs are stable in am -- resume lasix 01/07/22 resume beta dillan today (9) Atrial fibrillation: Plan: rates uncontrolled due to having to hold metoprolol in the setting of low BP gave digoxin x 2 IV doses with improved rate control will not cont it going forward, however, as BPs are now better and we can start to resume his beta dillan holding eliquis due to ongoing hematuria (10) Elevated bilirubin: Plan: 2019 the patient had severe cholecystitis which was treated with cholecystostomy tube and not cholecystectomy. The patient recovered from that episode. u/s of liver yesterday with cirrhosis but no acute cholecystitis findings thus biliary tract cause of his sepsis not found. cirrhosis - cardiac in etiology? TANNER? 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: Plan: holding alpha dillan due to recent hypotension sutton placed 01/04 since placing sutton he has had hematuria did not have hematuria prior to the sutton suspect bleeding/hematuria is from prostatic irritation MRI abdomen without urinary tract pathology in October 2021 - no kidneys stones, etc eliquis on hold hopefully hematuria resolves next 24 hours with supportive care H/H remain stable event despite hematuria repeat CBC in am (12) Elevated troponin: Plan: no evidence of ACS this is likely myocardial demand ischemia in setting of sepsis (13) Hematuria: Plan: 2nd to sutton trauma during sutton insertion in the setting of BPH? if so the hematuria is likely from the prostate again MRI abdomen in October 2021 was without kidney stones, bladder stones, etc allow urine to clear urine cx pending but cont to remain negative holding Eliquis hopefully hematuria will clear over the next 1-2 days as Eliquis exits his system if hematuria worsens or persists -- urology consultation (14) Cirrhosis: Plan: as seen on u/s prior CT a/p in 2019 with early cirrhosis changes etiology? TANNER? 2nd to "cardiac" cirrhosis this will need to be addressed after acute issues have resolved resume diuretics tomorrow Plan pt's and daughter updated at bedside appreciate PT/OT amanda - needs rehab Admission and Anticipated Discharge Date Admission Date: January 03, 2022 Subjective sitting in chair by window had a good day minimal pain in distal right leg/foot eating is better breathing is comfortable; no dyspnea urine in sutton bag still [place] red - this causes anxiety for him to see this denies any bladder pain/spasm /daughter at bedside a.fib on monitor - rates largely <100 is not opposed to going to rehab post-d/c, but would prefer home; he did say "I'll go if I really need it" Review of Systems Review of Systems: gen - energy improved/appetite improved; no fevers cv - no cp, no orthopnea; edema - ongoing pulm - no cough, no wheezing today GI - no diarrhea or N/V Physical Exam Physical Exam: gen - looks very good today, NAD neck - no JVD mouth - MMM; thrush on tongue resolved heart - irregular, s1 s2, tachy; 1/6 systolic murmur LSB lungs - decreased BS bases, o/w CTA b/l; no wheeze or rales today abd - distended with probable ascites; BS+; NT; no HSM ext - 1-2+ edema b/l; pulses 2+ b/l, cap refill < 2 sec skin - extensive ecchymoses on arms; cellulitis of right valdes much improved today; skin opening/ulcer leaking serous fluid posterior R calf psych - a/o x 3 Results & Data Results & Data ([facility]) Vital Signs (Past 12 Hours) Vital Signs Temp Pulse Pulse Resp BP BP Pulse Ox 01/06/22 20:25 72 18 98 01/06/22 19:00 36.9 C 98 H 16 149/74 H 100 01/06/22 15:38 86 19 97 01/06/22 15:37 36.5 C 87 19 122/67 99 01/06/22 15:01 87 01/06/22 15:00 98 01/06/22 11:04 97 H 19 100 01/06/22 10:50 37.1 C 99 H 18 124/79 100 O2 Del Method O2 Flow Rate 01/06/22 20:25 Nasal Cannula 2 01/06/22 19:00 Nasal Cannula 2 01/06/22 15:38 Nasal Cannula 2 01/06/22 15:37 Nasal Cannula 2 01/06/22 15:01 01/06/22 15:00 01/06/22 11:04 Nasal Cannula 2 01/06/22 10:50 Nasal Cannula 2 Laboratory Results Laboratory Results - last 24 hr 01/06/22 01/06/22 05:30 05:30 WBC 11.22 H RBC 2.98 L Hgb 9.4 L Hct 28.3 L MCV 95.0 MCH 31.5 MCHC 33.2 RDW Std Deviation 51.8 H RDW Coeff of Kamron 14.9 H Plt Count 80 L MPV 13.3 H Sodium 135 L Potassium 3.5 Chloride 99 Carbon Dioxide 29 Anion Gap 7 BUN 26 H Creatinine 1.00 D Est Cr Clr Drug Dosing 63.8 Est GFR ( Amer) 82.6 Est GFR (Non-Af Amer) 71.3 BUN/Creatinine Ratio 26.0 H Glucose 116 H Calcium 8.7 Magnesium 2.0 Diagnostic Findings repeat blood cx's 01/05 negative cultures from admission still GNR - pathogen has not been identified urine cx negative PG Care Time/CCT Total # of Minutes Spent Total Time Spent with Patient: Total time spent is greater than 50% in coordination of care (as documented) at patient's floor/unit and/or counseling patient: Coding Level of Care Code 55973 Subseq Hosp Care Lvl 3 Diagnoses Bacteremia R78.81 Sepsis A41.9 Cellulitis L03.90 ATN (acute tubular necrosis) N17.0 Hypotension I95.9 Acute metabolic encephalopathy G93.41 Chronic obstructive pulmonary disease J44.9 Chronic systolic (congestive) heart failure I50.22 Atrial fibrillation I48.21 Atrial fibrillation type: permanent Elevated bilirubin R17 BPH with obstruction/lower urinary tract symptoms N40.1; N13.8 Elevated troponin R77.8 Hematuria R31.9 Cirrhosis K74.60 (1) Atrial fibrillation Atrial fibrillation type: permanent Qualified Code(s): I48.21 - Permanent atrial fibrillation
[2022-01-07] MEDS: PIPERACILLIN/TAZOBACTAM 3.375 GM in DEXTROSE 5% 100 ML IV SCH ×3 (01:01→17:36)
[2022-01-07] MEDS: ALBUT/IPRATROP 3MG/0.5MG NEB 3 ML VIAL INH SCH ×2 (06:55→19:27)
[2022-01-07] MEDS: UMECLIDINIUM BROMIDE 62.5MCG/BLISTER 7 PUFFS/INHALER INH SCH (08:07)
[2022-01-07] MEDS: METOPROLOL TARTRATE 25 MG TAB PO SCH ×3 (08:07→20:04)
[2022-01-07] MEDS: FLUTICASONE/VILANTEROL 200/25MCG 14 PUFFS/INHALER INH SCH (08:07)
[2022-01-07] MEDS: PANTOprazole 40 MG TAB PO SCH (08:08)
[2022-01-07] MEDS: MULTIVITAMIN TAB PO SCH (08:08)
[2022-01-07 08:09] LABS: Hematocrit (blood only) 29.7 % (40.1-51.0); Hemoglobin 9.8 g/dl (14.0-18.0); Mean Corpuscular Hemoglobin 31.5 pg (25.0-34.0); Mean Corpuscular Volume 95.5 fL (80.0-100.0); Mean Platelet Volume 12.2 fL (9.4-12.4); Platelet Count 97 K/uL (130-400); RDW Coefficient of Variation 14.8 % (11.5-14.5); RDW Standard Deviation 51.9 fL (36.4-46.3); Red Blood Count 3.11 M/uL (4.63-6.08); White Blood Count 7.94 K/ul (4.8-10.8)
[2022-01-07] MEDS: predniSONE 10 MG TABLET PO SCH (08:09)
[2022-01-07] MEDS: NYSTATIN SUSP 500,000 U/5 ML UDC PO SCH ×4 (08:10→20:04)
[2022-01-07 08:29] LABS: BUN Creatinine Ratio 27.3 (10-20); Calcium 8.9 mg/dl (8.5-10.1); Creatinine Clr Calc Pharmacy 72.5 ml/min; Est GFR (African American) 94.7 ml/min; Est GFR (Non-African American) 81.7 ml/min; Potassium 3.6 mmol/L (3.5-5.1)
[2022-01-07] MEDS ORDERED: FUROSEMIDE INJ 20 MG/2 ML VIAL IV ONE (08:37)
[2022-01-07] MEDS ORDERED: POTASSIUM CHLORIDE CRTAB 20 MEQ TABCR PO STA (08:37)
--- NOTE | 2022-01-07 11:06 | XRay Report ---
XR chest 2V PA/lateral HISTORY: Shortness of breath. ?chf; ?pneumonia COMPARISON: Chest 01/03/2022. FINDINGS: No pneumothorax. There is a trace right pleural effusion which is slightly improved. The he art remains enlarged. 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 No left pleural effusion. Diffuse in terstitial thickening has also improved. Therefore, this favors resolving pulmonary edema. No new foc al lung consolidations to suggest a pneumonia. IMPRESSION: 1. Near-complete resolution of the pulmonary edema with decrease in size in the trace right pleural e ffusion. 2. Stable cardiomegaly. ACT 112: Negative or not required by law. Electronically signed by: Bryan Vee M.D. 01/07/2022 11:05 AM
[2022-01-07] MEDS: DAPTOmycin 450 MG in SYRINGE 0 ML IV SCH (13:35)
--- NOTE | 2022-01-07 23:06 | Hospitalist Progress Note ---
Date of Service January 07, 2022 Assessment & Plan (1) Bacteremia: Plan: admission blood cultures with gram negative rods. repeat blood cultures 01/05/22 - negative. source - RLE cellulitis. urine unlikely source (and culture negative). gall bladder was looked at with RUQ u/s - no signs of cholecystitis. serial cxrs without discrete pneumonia including today's films. continue zosyn until GNR is identified and sensitivities are available. (2) Sepsis: Plan: presumed 2nd to RLE cellulitis. severe sepsis -- with associated ATN, lactic acidosis, hypotension, etc. sepsis resolved. doubt UTI or pneumonia. cont zosyn. cont daptomycin (in [place] of vanco given his YANIRA/ATN) in light of severity of his RLE cellulitis. suspect we can change daptomycin to PO doxy on 01/08. follow blood cultures as in #1 above. (3) Cellulitis: Plan: RLE. improving very nicely with zosyn + daptomycin. cont zosyn. cont daptomycin - consider changing to po doxy tomorrow on 01/08. supportive care. elevate leg when in bed. start some gentle compression due to edema - tubigrip stocking or TEDS. follow all cultures. (4) ATN (acute tubular necrosis): Plan: sepsis-associated ATN. can't rule out element of obstruction but less likely. resolved. repeat BMP am. (5) Hypotension: Plan: 2nd to severe sepsis - resolved. s/p 3 boluses of 250cc NS each time on 01/04/22 tolerated such without pulmonary edema (6) Acute metabolic encephalopathy: Plan: 2nd sepsis resolved (7) Chronic obstructive pulmonary disease: Plan: with possible mild exacerbation s/p IV solumedrol in ER at time of presentation now on daily prednisone weaned to 30mg today cont bronchodilators previous cxr with ? infiltrates - repeat cxr today without pneumonia cont combivent QID (8) Chronic systolic (congestive) heart failure: Plan: EF 40-45% based on records patient was intravascularly volume contracted in the setting of sepsis and poor po intake at time of admission s/p saline boluses now euvolemic or slightly volume up resume lasix today - give 20mg IV x 1 increase metoprolol to 25mg BID (9) Atrial fibrillation: Plan: rates improved cont BB - increase to 25mg BID of metoprolol tartrate (10) Elevated bilirubin: Plan: 2019 the patient had severe cholecystitis which was treated with cholecystostomy tube and not cholecystectomy. The patient recovered from that episode. u/s of liver yesterday with cirrhosis but no acute cholecystitis findings thus biliary tract cause of his sepsis not found. cirrhosis - cardiac in etiology? TANNER? 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: Plan: holding alpha dillan due to recent hypotension sutton placed 01/04 since placing sutton he has had hematuria did not have hematuria prior to the sutton suspect bleeding/hematuria is from prostatic irritation MRI abdomen without urinary tract pathology in October 2021 - no kidneys stones, etc eliquis on hold HEMATURIA IMPROVED/RESOLVED TODAY H/H remain stable repeat CBC in am (12) Elevated troponin: Plan: no evidence of ACS this is likely myocardial demand ischemia in setting of sepsis (13) Hematuria: Plan: 2nd to sutton trauma during sutton insertion in the setting of BPH if so the hematuria is likely from the prostate hematuria resolved again MRI abdomen in October 2021 was without kidney stones, bladder stones, etc holding Eliquis (14) Cirrhosis: Plan: as seen on u/s prior CT a/p in 2019 with early cirrhosis changes etiology? TANNER? 2nd to "cardiac" cirrhosis this will need to be addressed after acute issues have resolved resume diuretics today (15) Candidiasis of mouth and esophagus: Plan: improved/resolved nystatin 5cc qid cont Plan pt's and daughter updated at bedside yesterday, 01/06 son updated today appreciate PT/OT evals - needs rehab progressing Admission and Anticipated Discharge Date Admission Date: January 03, 2022 Subjective had a good day today eating is good RLE pain essentially resolved; no further tenderness erythema of RLE improved coughing more than yesterday but denies dyspnea no cp urine in sutton has cleared; no further hematuria tele overnight - rate-controlled a.fib during the visit the pt's son was at bedside Review of Systems Review of Systems: gen - no fever, appetite/energy improving cv - no orthopnea pulm - no sputum GI - no diarrhea Physical Exam Physical Exam: gen - looks very good again today, NAD neck - no JVD mouth - MMM; thrush on tongue resolved heart - irregular, s1 s2, tachy; 1/6 systolic murmur LSB lungs - scattered wheezes b/l, no rales, good air movement abd - distended with probable ascites; BS+; NT; no HSM ext - 1-2+ edema RLE, <1+ LLE; pulses 2+ b/l, cap refill < 2 sec skin - extensive ecchymoses on arms; cellulitis of right valdes about 80-90% reso lved; skin opening/ulcer leaking serous fluid posterior R calf- ongoing psych - a/o x 3 Results & Data Results & Data ([facility]) Vital Signs (Past 12 Hours) Vital Signs Temp Pulse Pulse Resp BP BP Pulse Ox 01/07/22 23:04 36.8 C 75 18 141/69 H 98 01/07/22 19:28 70 18 94 01/07/22 19:00 36.7 C 94 H 17 146/70 H 97 01/07/22 18:00 01/07/22 15:40 36.6 C 69 19 138/65 100 01/07/22 15:32 66 Pulse Ox O2 Del Method O2 Del Method O2 Flow Rate O2 Flow Rate 01/07/22 23:04 Nasal Cannula 2 01/07/22 19:28 Room Air 01/07/22 19:00 Room Air 01/07/22 18:00 96 Nasal Cannula 2 01/07/22 15:40 Nasal Cannula 1.5 01/07/22 15:32 Laboratory Results Laboratory Results - last 24 hr 01/07/22 01/07/22 07:52 07:52 WBC 7.94 RBC 3.11 L Hgb 9.8 L Hct 29.7 L MCV 95.5 MCH 31.5 MCHC 33.0 RDW Std Deviation 51.9 H RDW Coeff of [place] 14.8 H Plt Count 97 L MPV 12.2 Sodium 137 Potassium 3.6 Chloride 101 Carbon Dioxide 31 Anion Gap 5 BUN 24 H Creatinine 0.88 Est Cr Clr Drug Dosing 72.5 Est GFR ( Amer) 94.7 Est GFR (Non-Af Amer) 81.7 BUN/Creatinine Ratio 27.3 H Glucose 102 H Calcium 8.9 Diagnostic Findings blood cx's from admission - GNR; ID still not achieved of that pathogen PG Care Time/CCT Total # of Minutes Spent Total Time Spent with Patient: Total time spent is greater than 50% in coordination of care (as documented) at patient's floor/unit and/or counseling patient: Coding Level of Care Code 88436 Subseq Hosp Care Lvl 3 Diagnoses Bacteremia R78.81 Sepsis A41.9 Cellulitis L03.90 ATN (acute tubular necrosis) N17.0 Hypotension I95.9 Acute metabolic encephalopathy G93.41 Chronic obstructive pulmonary disease J44.9 Chronic systolic (congestive) heart failure I50.22 Atrial fibrillation I48.21 Atrial fibrillation type: permanent Elevated bilirubin R17 BPH with obstruction/lower urinary tract symptoms N40.1; N13.8 Elevated troponin R77.8 Hematuria R31.9 Cirrhosis K74.60 Candidiasis of mouth and esophagus B37.81; B37.0 (1) Atrial fibrillation Atrial fibrillation type: permanent Qualified Code(s): I48.21 - Permanent atrial fibrillation
[2022-01-08] MEDS: PIPERACILLIN/TAZOBACTAM 3.375 GM in DEXTROSE 5% 100 ML IV SCH ×3 (02:17→17:11)
[2022-01-08 06:28] LABS: Hematocrit (blood only) 29.7 % (40.1-51.0); Hemoglobin 9.8 g/dl (14.0-18.0); Mean Corpuscular Hemoglobin 31.5 pg (25.0-34.0); Mean Corpuscular Volume 95.5 fL (80.0-100.0); Mean Platelet Volume 12.7 fL (9.4-12.4); Platelet Count 118 K/uL (130-400); RDW Coefficient of Variation 14.8 % (11.5-14.5); Red Blood Count 3.11 M/uL (4.63-6.08); White Blood Count 6.96 K/ul (4.8-10.8)
[2022-01-08 07:04] LABS: BUN Creatinine Ratio 30.2 (10-20); Calcium 8.6 mg/dl (8.5-10.1); Creatinine Clr Calc Pharmacy 74.2 ml/min; Est GFR (African American) 95.6 ml/min; Est GFR (Non-African American) 82.5 ml/min; Potassium 4.2 mmol/L (3.5-5.1)
[2022-01-08] MEDS: ALBUT/IPRATROP 3MG/0.5MG NEB 3 ML VIAL INH SCH ×2 (07:08→19:42)
[2022-01-08] MEDS: NYSTATIN SUSP 500,000 U/5 ML UDC PO SCH ×4 (08:02→21:13)
[2022-01-08] MEDS: predniSONE 10 MG TABLET PO SCH (08:02)
[2022-01-08] MEDS: PANTOprazole 40 MG TAB PO SCH (08:03)
[2022-01-08] MEDS: MULTIVITAMIN TAB PO SCH (08:03)
[2022-01-08] MEDS: METOPROLOL TARTRATE 25 MG TAB PO SCH ×2 (08:03→21:12)
[2022-01-08] MEDS: FLUTICASONE/VILANTEROL 200/25MCG 14 PUFFS/INHALER INH SCH (08:04)
[2022-01-08] MEDS: UMECLIDINIUM BROMIDE 62.5MCG/BLISTER 7 PUFFS/INHALER INH SCH (08:04)
[2022-01-08] MEDS ORDERED: FUROSEMIDE INJ 20 MG/2 ML VIAL IV ONE (09:00)
[2022-01-08] MEDS ORDERED: bisacodyL 5 MG TABEC PO ONE (10:22)
[2022-01-08] MEDS ORDERED: POLYETHYLENE (MIRALAX) 17 GM PACK PO ONE (10:30)
[2022-01-08] MEDS: DOXYCYCLINE HYCLATE 100 MG CAP PO SCH ×2 (10:59→21:13)
--- NOTE | 2022-01-08 21:30 | Hospitalist Progress Note ---
Date of Service January 08, 2022 Assessment & Plan (1) Bacteremia: Plan: admission blood cultures with gram negative rods. repeat blood cultures 01/05/22 - negative. suspected source - RLE cellulitis. urine unlikely source (and culture negative). gall bladder was looked at with RUQ u/s - no signs of cholecystitis. serial cxrs without discrete pneumonia. continue zosyn until GNR is identified and sensitivities are available. if GNR is a very atypical pathogen - is the source something other than the skin?? (2) Sepsis: Plan: severe sepsis -- with associated ATN, lactic acidosis, hypotension, etc. sepsis resolved. presumed 2nd to RLE cellulitis. doubt UTI or pneumonia. cont zosyn. can stop daptomycin and change to PO doxy today for RLE cellulitis (to cover for MRSA). follow blood cultures as in #1 above. (3) Cellulitis: Plan: RLE. improving very nicely with zosyn + daptomycin. cont zosyn. stop daptomycin - change to po doxy 100mg BID today. supportive care. elevate leg when in bed. cont gentle compression due to edema - tubigrip stocking or TEDS. follow all cultures. (4) ATN (acute tubular necrosis): Plan: sepsis-associated ATN. resolved. Cr now <1. peak was 1.87. repeat BMP am. (5) Hypotension: Plan: 2nd to severe sepsis - resolved. (6) Acute metabolic encephalopathy: Plan: 2nd sepsis - resolved (7) Chronic obstructive pulmonary disease: Plan: with possible mild exacerbation s/p IV solumedrol in ER at time of presentation now on daily prednisone cont prednisone 30mg daily - no wean today cont bronchodilators previous cxr with ? infiltrates - repeat cxr 01/07/22 without pneumonia cont combivent QID (8) Chronic systolic (congestive) heart failure: Plan: EF 40-45% based on records patient was intravascularly volume contracted in the setting of sepsis and poor po intake at time of admission s/p saline boluses now euvolemic or slightly volume up resumed lasix on 01/07 give additional dose of lasix today cont metoprolol 25mg BID (9) Atrial fibrillation: Plan: rates improved cont BB resume eliquis in the next 1-2 days (10) Elevated bilirubin: Plan: 2019 the patient had severe cholecystitis which was treated with cholecystostomy tube and not cholecystectomy. The patient recovered from that episode. u/s of liver yesterday with cirrhosis but no acute cholecystitis findings thus biliary tract cause of his sepsis not found. cirrhosis - cardiac in etiology? TANNER? 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: Plan: holding alpha dillan due to recent hypotension sutton placed 01/04 since placing sutton he has had hematuria did not have hematuria prior to the sutton suspect bleeding/hematuria is from prostatic irritation MRI abdomen without urinary tract pathology in October 2021 - no kidneys stones, etc eliquis on hold HEMATURIA resolved H/H remain stable repeat CBC in am (12) Elevated troponin: Plan: no evidence of ACS this is likely myocardial demand ischemia in setting of sepsis (13) Hematuria: Plan: 2nd to sutton trauma during sutton insertion in the setting of BPH if so the hematuria is likely from the prostate hematuria resolved again MRI abdomen in October 2021 was without kidney stones, bladder stones, etc holding Eliquis (14) Cirrhosis: Plan: as seen on u/s prior CT a/p in 2019 with early cirrhosis changes etiology? TANNER? 2nd to "cardiac" cirrhosis this will need to be addressed after acute issues have resolved resumed diuretics on 01/07 recheck LFTs 01/09 (15) Candidiasis of mouth and esophagus: Plan: improved/resolved cont nystatin 5cc qid Plan pt's and daughter updated at bedside - 01/06 son updated 01/07 updated 01/08 appreciate PT/OT evals - needs rehab progressing Admission and Anticipated Discharge Date Admission Date: January 03, 2022 Subjective patient continues to feel better each day some cough but no dyspnea at rest no orthopnea edema b/l legs improved pain in right leg resolved erythema right leg nearly resolved hematuria resolved in sutton eating >75% of meals no BM in several days Review of Systems Review of Systems: gen - no fevers, no chills cv - no cp pulm - no sputum production GI - no abd pain, nausea or emesis Physical Exam Physical Exam: gen - nontoxic, NAD, looks good neck - no JVD mouth - MMM; thrush on tongue resolved heart - irregular, s1 s2, regular rate; 1/6 systolic murmur LSB lungs - scattered wheezes b/l, no rales, good air movement abd - distended with probable ascites - maybe slightly better today; BS+; NT; no HSM ext - <1+ edema RLE, <1+ LLE; pulses 2+ b/l, cap refill < 2 sec skin - extensive ecchymoses on arms; cellulitis of right valdes nearly resolved; skin opening/ulcer leaking serous fluid posterior R calf- ongoing psych - a/o x 3 Results & Data Results & Data ([facility]) Vital Signs (Past 12 Hours) Vital Signs Temp Pulse Pulse Resp BP BP Pulse Ox 01/08/22 19:42 68 20 98 01/08/22 18:35 36.8 C 71 16 132/74 90 01/08/22 15:13 69 01/08/22 11:22 36.7 C 71 18 138/66 94 O2 Del Method O2 Flow Rate 01/08/22 19:42 Nasal Cannula 2 01/08/22 18:35 Nasal Cannula 2 01/08/22 15:13 01/08/22 11:22 Room Air Laboratory Results Laboratory Results - last 24 hr 01/08/22 01/08/22 05:11 05:11 WBC 6.96 RBC 3.11 L Hgb 9.8 L Hct 29.7 L MCV 95.5 MCH 31.5 MCHC 33.0 RDW Std Deviation 52.0 H RDW Coeff of Kamron 14.8 H Plt Count 118 L MPV 12.7 H Sodium 136 Potassium 4.2 Chloride 102 Carbon Dioxide 32 Anion Gap 2 L BUN 26 H Creatinine 0.86 Est Cr Clr Drug Dosing 74.2 Est GFR ( Amer) 95.6 Est GFR (Non-Af Amer) 82.5 BUN/Creatinine Ratio 30.2 H Glucose 123 H Calcium 8.6 Diagnostic Findings blood cx's from admission - GNR, sent to outside micro lab for ID blood cx's from 01/05 negative PG Care Time/CCT Total # of Minutes Spent Total Time Spent with Patient: Total time spent is greater than 50% in coordination of care (as documented) at patient's floor/unit and/or counseling patient: Coding Level of Care Code 15232 Subseq Hosp Care Lvl 3 Diagnoses Bacteremia R78.81 Sepsis A41.9 Cellulitis L03.90 ATN (acute tubular necrosis) N17.0 Hypotension I95.9 Acute metabolic encephalopathy G93.41 Chronic obstructive pulmonary disease J44.9 Chronic systolic (congestive) heart failure I50.22 Atrial fibrillation I48.21 Atrial fibrillation type: permanent Elevated bilirubin R17 BPH with obstruction/lower urinary tract symptoms N40.1; N13.8 Elevated troponin R77.8 Hematuria R31.9 Cirrhosis K74.60 Candidiasis of mouth and esophagus B37.81; B37.0 (1) Atrial fibrillation Atrial fibrillation type: permanent Qualified Code(s): I48.21 - Permanent atrial fibrillation
[2022-01-09] MEDS: PIPERACILLIN/TAZOBACTAM 3.375 GM in DEXTROSE 5% 100 ML IV SCH ×3 (02:04→17:04)
[2022-01-09] MEDS: ALBUT/IPRATROP 3MG/0.5MG NEB 3 ML VIAL INH SCH ×2 (07:08→19:42)
[2022-01-09 07:17] LABS: Hematocrit (blood only) 30.4 % (40.1-51.0); Mean Corpuscular Hemoglobin 31.1 pg (25.0-34.0); Mean Corpuscular Hgb Conc 32.9 g/dL (32.0-36.0); Mean Corpuscular Volume 94.4 fL (80.0-100.0); Mean Platelet Volume 11.7 fL (9.4-12.4); Platelet Count 130 K/uL (130-400); RDW Coefficient of Variation 14.6 % (11.5-14.5); RDW Standard Deviation 51.6 fL (36.4-46.3); Red Blood Count 3.22 M/uL (4.63-6.08); White Blood Count 6.76 K/ul (4.8-10.8)
[2022-01-09 07:22] LABS: Albumin Level 3.3 gm/dl (3.4-5.0); BUN Creatinine Ratio 27.4 (10-20); Bilirubin Direct 0.3 mg/dl (0-0.2); Calcium 8.4 mg/dl (8.5-10.1); Creatinine Clr Calc Pharmacy 75.9 ml/min; Est GFR (African American) 96.5 ml/min; Est GFR (Non-African American) 83.3 ml/min; Potassium 3.9 mmol/L (3.5-5.1); Total Protein 5.7 gm/dl (6.0-8.3)
[2022-01-09] MEDS ORDERED: POTASSIUM CHLORIDE CRTAB 20 MEQ TABCR PO STA (08:01)
[2022-01-09] MEDS ORDERED: FUROSEMIDE INJ 20 MG/2 ML VIAL IV ONE ×2 (08:01→17:00)
[2022-01-09] MEDS: predniSONE 10 MG TABLET PO SCH (08:59)
[2022-01-09] MEDS: METOPROLOL TARTRATE 25 MG TAB PO SCH ×2 (08:59→21:44)
[2022-01-09] MEDS: DOXYCYCLINE HYCLATE 100 MG CAP PO SCH ×2 (08:59→21:44)
[2022-01-09] MEDS: MULTIVITAMIN TAB PO SCH (08:59)
[2022-01-09] MEDS: UMECLIDINIUM BROMIDE 62.5MCG/BLISTER 7 PUFFS/INHALER INH SCH (09:00)
[2022-01-09] MEDS: PANTOprazole 40 MG TAB PO SCH (09:00)
[2022-01-09] MEDS ORDERED: POLYETHYLENE (MIRALAX) 17 GM PACK PO SCH (09:00)
[2022-01-09] MEDS: NYSTATIN SUSP 500,000 U/5 ML UDC PO SCH ×4 (09:00→21:44)
[2022-01-09] MEDS: FLUTICASONE/VILANTEROL 200/25MCG 14 PUFFS/INHALER INH SCH (09:00)
[2022-01-09] MEDS: ALFUZOSIN HCL 10 MG TAB PO SCH (09:24)
[2022-01-09] MEDS: HEPARIN SOD 5,000 UNIT/0.5 ML VIAL SQ SCH ×2 (17:04→21:43)
--- NOTE | 2022-01-09 21:04 | Hospitalist Progress Note ---
Date of Service January 09, 2022 Assessment & Plan (1) Bacteremia: Plan: admission blood cultures with gram negative rods. repeat blood cultures 01/05/22 - negative. I spoke with microbiology - they had difficult time identifying the organism. It is oxidative positive but final ID is uncertain. Culture to be sent out to reference lab ([place]) on 01/10. suspected source - RLE cellulitis. urine unlikely source (and culture negative). gall bladder was normal on RUQ u/s - no signs of cholecystitis. serial cxrs without discrete pneumonia. continue zosyn until GNR is identified and sensitivities are available. if GNR is a very atypical pathogen - is the source something other than the skin?? (2) Sepsis: Plan: present on admission - severe sepsis -- with associated ATN, lactic acidosis, hypotension, etc. sepsis resolved. presumed 2nd to RLE cellulitis. see above. doubt UTI or pneumonia. cont zosyn. stopped daptomycin and changed to PO doxy for RLE cellulitis (to cover for MRSA) on 01/08/22. plan 4 more days of doxy then stop. follow blood cultures as in #1 above. (3) Cellulitis: Plan: RLE. improving very nicely with zosyn + daptomycin - now doxy. cont zosyn. cont po doxy 100mg BID. supportive care. elevate leg when in bed. cont gentle compression due to edema - tubigrip stocking or TEDS. follow all cultures. (4) ATN (acute tubular necrosis): Plan: sepsis-associated ATN. resolved. Cr now <1. peak was 1.87. repeat BMP am. (5) Hypotension: Plan: 2nd to severe sepsis - resolved. beta dillan resumed diuretics resumed. alpha dillan to be resumed today. (6) Acute metabolic encephalopathy: Plan: 2nd sepsis - resolved (7) Chronic obstructive pulmonary disease: Plan: with possible mild exacerbation s/p IV solumedrol in ER at time of presentation now on daily prednisone cont prednisone 30mg today, then 20mg tomorrow cont bronchodilators previous cxr with ? infiltrates - repeat cxr 01/07/22 without pneumonia cont combivent QID (8) Chronic systolic (congestive) heart failure: Plan: EF 40-45% based on records patient was intravascularly volume contracted in the setting of sepsis and poor po intake at time of admission s/p saline boluses now euvolemic or slightly volume up resumed lasix on 01/07 give 2 doses of lasix today cont metoprolol 25mg BID (9) Atrial fibrillation: Plan: rates improved cont BB resume eliquis if no recurrent hematuria - hopefully next 48 hours (10) Elevated bilirubin: Plan: 2019 the patient had severe cholecystitis which was treated with cholecystostomy tube and not cholecystectomy. The patient recovered from that episode. u/s of liver yesterday with cirrhosis but no acute cholecystitis findings thus biliary tract cause of his sepsis not found. cirrhosis - cardiac in etiology? TANNER? 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: Plan: holding alpha dillan due to recent hypotension sutton placed 01/04 since placing sutton he has had hematuria did not have hematuria prior to the sutton suspect bleeding/hematuria is from prostatic irritation MRI abdomen without urinary tract pathology in October 2021 - no kidneys stones, etc eliquis on hold HEMATURIA resolved H/H remain stable repeat CBC in am (12) Elevated troponin: Plan: no evidence of ACS this is likely myocardial demand ischemia in setting of sepsis (13) Hematuria: Plan: 2nd to sutton trauma during sutton insertion in the setting of BPH if so the hematuria is likely from the prostate hematuria resolved again MRI abdomen in October 2021 was without kidney stones, bladder stones, etc holding Eliquis (14) Cirrhosis: Plan: as seen on u/s prior CT a/p in 2019 with early cirrhosis changes etiology? TANNER? 2nd to "cardiac" cirrhosis this will need to be addressed after acute issues have resolved resumed diuretics on 01/07 LFTs today stable (15) Candidiasis of mouth and esophagus: Plan: resolved cont nystatin 5cc qid Plan pt's and daughter updated at bedside - 01/06 and 01/09 son updated 01/07 updated by phone 01/08 cont PT/OT - needs rehab progressing while eliquis is on hold will use heparin 5000 TID for DVT proph watch for any hematuria Admission and Anticipated Discharge Date Admission Date: January 03, 2022 Subjective patient sitting in chair during the visit & daughter were at bedside his main complaint is that of cough nonproductive he feels the cough is worse than at time of admission denies dyspnea beyond his usual baseline eating decently a.fib - rates largely <100 BPM still constipated Review of Systems Review of Systems: gen - no fevers, no chills cv - no cp pulm - cough, wheezes GI - no pain; some distension; no nausea or vomiting musculo - RLE pain resolved Physical Exam Physical Exam: gen - nontoxic, NAD, looks good ; sitting in chair comfortably neck - no JVD mouth - MMM; thrush resolved heart - irregular, s1 s2, regular rate; 1/6 systolic murmur LSB lungs - wheezes b/l, no rales, no increased work of breathing abd - distended with ascites +/- gas/air; BS+; NT; no HSM ext - <1+ edema RLE, trace edema LLE; pulses 2+ b/l, cap refill < 2 sec skin - extensive ecchymoses on arms unchanged; cellulitis of right valdes resolved psych - a/o x 3 Results & Data Results & Data ([facility]) Vital Signs (Past 12 Hours) Vital Signs Temp Pulse Pulse Resp BP BP Pulse Ox 01/09/22 19:42 62 18 100 01/09/22 19:39 36.8 C 65 18 131/78 99 01/09/22 16:05 36.6 C 58 L 20 132/78 92 01/09/22 15:33 56 L 01/09/22 11:03 36.6 C 55 L 18 136/83 100 O2 Del Method O2 Flow Rate 01/09/22 19:42 Nasal Cannula 2 01/09/22 19:39 Nasal Cannula 2 01/09/22 16:05 01/09/22 15:33 01/09/22 11:03 Nasal Cannula 2 Laboratory Results Laboratory Results - last 24 hr 01/09/22 01/09/22 06:31 06:31 WBC 6.76 RBC 3.22 L Hgb 10.0 L Hct 30.4 L MCV 94.4 MCH 31.1 MCHC 32.9 RDW Std Deviation 51.6 H RDW Coeff of Kamron 14.6 H Plt Count 130 MPV 11.7 Sodium 139 Potassium 3.9 Chloride 103 Carbon Dioxide 31 Anion Gap 5 BUN 23 Creatinine 0.84 Est Cr Clr Drug Dosing 75.9 Est GFR ( Amer) 96.5 Est GFR (Non-Af Amer) 83.3 BUN/Creatinine Ratio 27.4 H Glucose 112 H Calcium 8.4 L Total Bilirubin 1.0 Direct Bilirubin 0.3 H AST 19 ALT 19 Alkaline Phosphatase 90 Total Protein 5.7 L Albumin 3.3 L PG Care Time/CCT Total # of Minutes Spent Total Time Spent with Patient: Total time spent is greater than 50% in coordination of care (as documented) at patient's floor/unit and/or counseling patient: Coding Level of Care Code 38699 Subseq Hosp Care Lvl 3 Diagnoses Bacteremia R78.81 Sepsis A41.9 Cellulitis L03.90 ATN (acute tubular necrosis) N17.0 Hypotension I95.9 Acute metabolic encephalopathy G93.41 Chronic obstructive pulmonary disease J44.9 Chronic systolic (congestive) heart failure I50.22 Atrial fibrillation I48.21 Atrial fibrillation type: permanent Elevated bilirubin R17 BPH with obstruction/lower urinary tract symptoms N40.1; N13.8 Elevated troponin R77.8 Hematuria R31.9 Cirrhosis K74.60 Candidiasis of mouth and esophagus B37.81; B37.0 (1) Atrial fibrillation Atrial fibrillation type: permanent Qualified Code(s): I48.21 - Permanent atrial fibrillation
[2022-01-09] MEDS: ATORVASTATIN 20 MG TAB PO SCH (21:44)
[2022-01-09] MEDS: POLYETHYLENE (MIRALAX) 17 GM PACK PO SCH (21:44)
[2022-01-09] MEDS: SENNA 8.6 MG TAB PO SCH (23:30)
[2022-01-10] MEDS: PIPERACILLIN/TAZOBACTAM 3.375 GM in DEXTROSE 5% 100 ML IV SCH ×3 (02:21→18:32)
[2022-01-10] MEDS: HEPARIN SOD 5,000 UNIT/0.5 ML VIAL SQ SCH ×3 (06:23→23:01)
[2022-01-10 06:27] LABS: Hemoglobin 9.9 g/dl (14.0-18.0); Mean Corpuscular Hemoglobin 30.7 pg (25.0-34.0); Mean Corpuscular Hgb Conc 31.9 g/dL (32.0-36.0); Mean Platelet Volume 12.2 fL (9.4-12.4); Platelet Count 145 K/uL (130-400); RDW Coefficient of Variation 14.5 % (11.5-14.5); RDW Standard Deviation 50.7 fL (36.4-46.3); Red Blood Count 3.23 M/uL (4.63-6.08); White Blood Count 5.86 K/ul (4.8-10.8)
[2022-01-10 07:09] LABS: BUN Creatinine Ratio 24.5 (10-20); Calcium 8.5 mg/dl (8.5-10.1); Creatinine Clr Calc Pharmacy 65.1 ml/min; Est GFR (African American) 84.6 ml/min; Magnesium 1.9 mg/dl (1.7-2.4); Potassium 4.4 mmol/L (3.5-5.1)
[2022-01-10] MEDS: ALBUT/IPRATROP 3MG/0.5MG NEB 3 ML VIAL INH SCH ×2 (07:09→20:02)
[2022-01-10] MEDS: ADVANCED PROBIOTIC 1250 MG CAPSULE PO SCH (08:53)
[2022-01-10] MEDS: POLYETHYLENE (MIRALAX) 17 GM PACK PO SCH ×2 (08:53→22:56)
[2022-01-10] MEDS: predniSONE 20 MG TAB PO SCH (08:53)
[2022-01-10] MEDS: MULTIVITAMIN TAB PO SCH (08:54)
[2022-01-10] MEDS: PANTOprazole 40 MG TAB PO SCH (08:54)
[2022-01-10] MEDS: ALFUZOSIN HCL 10 MG TAB PO SCH (08:54)
[2022-01-10] MEDS: FLUTICASONE/VILANTEROL 200/25MCG 14 PUFFS/INHALER INH SCH (08:55)
[2022-01-10] MEDS: DOXYCYCLINE HYCLATE 100 MG CAP PO SCH ×2 (08:55→23:00)
[2022-01-10] MEDS: UMECLIDINIUM BROMIDE 62.5MCG/BLISTER 7 PUFFS/INHALER INH SCH (08:55)
[2022-01-10] MEDS: METOPROLOL TARTRATE 25 MG TAB PO SCH ×2 (08:55→23:01)
[2022-01-10] MEDS: NYSTATIN SUSP 500,000 U/5 ML UDC PO SCH ×4 (09:13→22:56)
[2022-01-10] MEDS: FUROSEMIDE 40 MG TAB PO SCH (10:51)
--- NOTE | 2022-01-10 20:01 | Hospitalist Progress Note ---
Date of Service January 10, 2022 Assessment & Plan (1) Bacteremia: Plan: clinically resolved. admission blood cultures with gram negative rods. repeat blood cultures 01/05/22 - negative. I spoke with microbiology - they had difficult time identifying the organism. It is oxidative positive but final ID is uncertain. Culture to be sent out to reference lab ([place]) on 01/10/22. suspected source - RLE cellulitis. urine unlikely source (and culture negative). gall bladder was normal on RUQ u/s - no signs of cholecystitis. serial cxrs without discrete pneumonia. continue zosyn until GNR is identified and sensitivities are available. today is day #7 of IV zosyn. if GNR is a very atypical pathogen - is the source something other than the skin?? regardless of which pathogen it is - planning 14 days of Rx since date of negative blood culture (01/05/22 re-draw). (2) Sepsis: Plan: present on admission - severe sepsis -- with associated ATN, lactic acidosis, hypotension, etc. sepsis resolved. presumed 2nd to RLE cellulitis. see above. doubt UTI or pneumonia. cont zosyn. day #7 of such. stopped daptomycin and changed to PO doxy for RLE cellulitis (to cover for MRSA) on 01/08/22. plan 3 more days of doxy then stop. follow blood cultures as in #1 above. (3) Cellulitis: Plan: RLE. resolved. improved very nicely with zosyn + daptomycin --> now doxy in [place] of daptomycin. cont zosyn. cont po doxy 100mg BID. supportive care. elevate leg when in bed. cont gentle compression due to edema - tubigrip stocking ordered by wound care nurse today. (4) ATN (acute tubular necrosis): Plan: sepsis-associated ATN. resolved. Cr now <1. peak was 1.87. repeat BMP am. (5) Hypotension: Plan: present on admission. 2nd to severe sepsis - resolved. beta dillan resumed diuretics resumed. alpha dillan for BPH resumed. (6) Acute metabolic encephalopathy: Plan: 2nd sepsis - resolved (7) Chronic obstructive pulmonary disease: Plan: with possible mild exacerbation s/p IV solumedrol in ER at time of presentation now on daily prednisone cont prednisone 20mg and cont to wean every 2-3 days to off. admission cxr with ? infiltrates - repeat cxr 01/07/22 without pneumonia cont albuterol nebs BID cont Umeclidinium [place] cont Fluticasone/vilanterol (8) Chronic systolic (congestive) heart failure: Plan: EF 40-45% based on records patient was intravascularly volume contracted in the setting of sepsis and poor po intake at time of admission s/p saline boluses now euvolemic or slightly volume up resumed lasix on 01/07 initially IV, now back to PO consider adding aldactone due to ascites from his cirrhosis cont metoprolol 25mg BID (9) Atrial fibrillation: Plan: patient typically takes metoprolol succinate 100mg daily this had been held due to hypotension early in his stay interestingly we have only been able to resume the metoprolol at 25mg BID with this lower dose he is having significant bradycardia with rates in the 30s/40s with sleep early in the stay he had significant tachycardia 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 obviously can't do anything for this at this time cont metoprolol as is for now cont telemetry resume eliquis tomorrow and stop SC heparin if no hematuria (10) Elevated bilirubin: Plan: 2019 the patient had severe cholecystitis which was treated with cholecystostomy tube and not cholecystectomy. The patient recovered from that episode. u/s of liver yesterday with cirrhosis but no acute cholecystitis findings thus biliary tract cause of his sepsis not found. cirrhosis - cardiac in etiology? TANNER? 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: Plan: sutton placed 01/04 developed hematuria with sutton placement did not have hematuria prior to the sutton suspect bleeding/hematuria was from prostatic irritation in the setting of Eliquis use MRI abdomen without urinary tract pathology in October 2021 - no kidneys stones, etc Eliquis was held, and HEMATURIA resolved H/H remain stable if urine stays clear overnight consider d/c sutton and resumption of Eliquis on 01/11/22 (12) Elevated troponin: Plan: no evidence of ACS this is likely myocardial demand ischemia in setting of sepsis (13) Hematuria: Plan: see above in #11 (14) Cirrhosis: Plan: as seen on u/s prior CT a/p in 2019 with early cirrhosis changes etiology? TANNER? 2nd to "cardiac" cirrhosis this will need to be addressed after acute issues have resolved resumed diuretics on 01/07 LFTs today stable consider adding aldactone due to presence of ascites (15) Candidiasis of mouth and esophagus: Plan: resolved cont nystatin 5cc qid (16) Constipation: Plan: finally resolved cont miralax and senna for bowel maintenance Plan pt's and daughter updated at bedside - 01/06 and 01/09 son updated 01/07 updated by phone 01/08 updated at bedside 01/10 cont PT/OT - needs rehab progressing while Eliquis is on hold using heparin 5000 TID for DVT proph Admission and Anticipated Discharge Date Admission Date: January 03, 2022 Subjective tele overnight - a.fib; rates largely <100 but during sleep he drops to the 30s minor pauses - 3-3.5 seconds in duration no AV block patient feeling good today good appetite NO pain in RLE continues with nonproductive cough with wheezing denies pain any location at bedside Review of Systems Review of Systems: gen - no fevers, energy improving; appetite improved cv - no cp, no orthopnea GI - FINALLY had bowel movement - feels much better pulm - mild dyspnea - this is chronic & at baseline Physical Exam Physical Exam: gen - nontoxic, NAD, looks great today neck - mild JVD present mouth - MMM; thrush resolved heart - irregular, s1 s2, regular rate; 1/6 systolic murmur LSB lungs - wheezes b/l unchanged; no rales, no increased work of breathing abd - less distended today s/p bowel movement earlier today; BS+; NT; no HSM ext - <1+ edema RLE, trace edema LLE; pulses 2+ b/l, cap refill < 2 sec skin - extensive ecchymoses on arms unchanged; cellulitis of right valdes resolved; small ulceration near R calf unchanged, less serous drainage today from this shallow ulcer psych - a/o x 3 Results & Data Results & Data ([facility]) Vital Signs (Past 12 Hours) Vital Signs Temp Pulse Pulse Resp BP Pulse Ox O2 Del Method 01/10/22 18:36 36.7 C 64 18 136/71 96 Room Air 01/10/22 17:08 36.6 C 51 L 20 137/82 95 Room Air 01/10/22 16:19 85 01/10/22 11:44 Nasal Cannula 01/10/22 11:15 36.4 C L 70 18 146/85 H 100 Nasal Cannula 01/10/22 08:01 68 18 99 Nasal Cannula O2 Flow Rate 01/10/22 18:36 01/10/22 17:08 01/10/22 16:19 01/10/22 11:44 2 01/10/22 11:15 2 01/10/22 08:01 3 Laboratory Results Laboratory Results - last 24 hr 01/10/22 01/10/22 05:35 05:35 WBC 5.86 RBC 3.23 L Hgb 9.9 L Hct 31.0 L MCV 96.0 MCH 30.7 MCHC 31.9 L RDW Std Deviation 50.7 H RDW Coeff of Kamron 14.5 Plt Count 145 MPV 12.2 Sodium 139 Potassium 4.4 Chloride 100 Carbon Dioxide 36 H Anion Gap 3 BUN 24 H Creatinine 0.98 Est Cr Clr Drug Dosing 65.1 Est GFR ( Amer) 84.6 Est GFR (Non-Af Amer) 73.0 BUN/Creatinine Ratio 24.5 H Glucose 119 H Calcium 8.5 Magnesium 1.9 Diagnostic Findings blood cx's from admission - GNR - culture sent to reference lab for identification PG Care Time/CCT Total # of Minutes Spent Total Time Spent with Patient: Total time spent is greater than 50% in coordination of care (as documented) at patient's floor/unit and/or counseling patient: Coding Level of Care Code 41129 Subseq Hosp Care Lvl 3 Diagnoses Bacteremia R78.81 Sepsis A41.9 Cellulitis L03.90 ATN (acute tubular necrosis) N17.0 Hypotension I95.9 Acute metabolic encephalopathy G93.41 Chronic obstructive pulmonary disease J44.9 Chronic systolic (congestive) heart failure I50.22 Atrial fibrillation I48.21 Atrial fibrillation type: permanent Elevated bilirubin R17 BPH with obstruction/lower urinary tract symptoms N40.1; N13.8 Elevated troponin R77.8 Hematuria R31.9 Cirrhosis K74.60 Candidiasis of mouth and esophagus B37.81; B37.0 Constipation K59.00 (1) Atrial fibrillation Atrial fibrillation type: permanent Qualified Code(s): I48.21 - Permanent atrial fibrillation
[2022-01-10] MEDS: SENNA 8.6 MG TAB PO SCH (22:56)
[2022-01-10] MEDS: ATORVASTATIN 20 MG TAB PO SCH (23:01)
[2022-01-11] MEDS: PIPERACILLIN/TAZOBACTAM 3.375 GM in DEXTROSE 5% 100 ML IV SCH ×3 (03:31→18:25)
[2022-01-11] MEDS: HEPARIN SOD 5,000 UNIT/0.5 ML VIAL SQ SCH (05:34)
[2022-01-11] MEDS: ALBUT/IPRATROP 3MG/0.5MG NEB 3 ML VIAL INH SCH ×2 (07:17→19:24)
[2022-01-11 09:06] LABS: Creatinine Clr Calc Pharmacy 66.5 ml/min; Est GFR (African American) 86.8 ml/min; Est GFR (Non-African American) 74.9 ml/min; Potassium 4.1 mmol/L (3.5-5.1)
[2022-01-11 09:07] LABS: Albumin Level 3.1 gm/dl (3.4-5.0); Calcium 8.4 mg/dl (8.5-10.1); Total Protein 4.8 gm/dl (6.0-8.3)
[2022-01-11 09:08] LABS: Albumin Globulin Ratio 1.8 (0.9-2); Globulin 1.7 gm/dl (2.5-4.0)
[2022-01-11] MEDS: DOXYCYCLINE HYCLATE 100 MG CAP PO SCH ×2 (09:49→21:44)
[2022-01-11] MEDS: FLUTICASONE/VILANTEROL 200/25MCG 14 PUFFS/INHALER INH SCH (09:49)
[2022-01-11] MEDS: MULTIVITAMIN TAB PO SCH (09:50)
[2022-01-11] MEDS: predniSONE 20 MG TAB PO SCH (09:50)
[2022-01-11] MEDS: FUROSEMIDE 40 MG TAB PO SCH (09:50)
[2022-01-11] MEDS: METOPROLOL TARTRATE 25 MG TAB PO SCH ×2 (09:50→23:26)
[2022-01-11] MEDS: POLYETHYLENE (MIRALAX) 17 GM PACK PO SCH ×2 (09:50→21:39)
[2022-01-11] MEDS: NYSTATIN SUSP 500,000 U/5 ML UDC PO SCH ×4 (09:51→21:33)
[2022-01-11] MEDS: UMECLIDINIUM BROMIDE 62.5MCG/BLISTER 7 PUFFS/INHALER INH SCH (09:51)
[2022-01-11] MEDS: PANTOprazole 40 MG TAB PO SCH (09:51)
[2022-01-11] MEDS: ALFUZOSIN HCL 10 MG TAB PO SCH (09:51)
[2022-01-11] MEDS: ADVANCED PROBIOTIC 1250 MG CAPSULE PO SCH (09:51)
--- NOTE | 2022-01-11 16:35 | Hospitalist Progress Note ---
Date of Service January 11, 2022 Assessment & Plan (1) Bacteremia: Plan: clinically resolved. admission blood cultures with gram negative rods. repeat blood cultures 01/05/22 - negative. I spoke with microbiology - they had difficult time identifying the organism. It is oxidative positive but final ID is uncertain. Culture to be sent out to reference lab ([place]) on 01/10/22. suspected source - RLE cellulitis. urine unlikely source (and culture negative). gall bladder was normal on RUQ u/s - no signs of cholecystitis. serial cxrs without discrete pneumonia. continue zosyn until GNR is identified and sensitivities are available. today is day #8 of IV zosyn. if GNR is a very atypical pathogen - is the source something other than the skin?? regardless of which pathogen it is - planning 14 days of Rx since date of negative blood culture (01/05/22 re-draw). May need to consider ID consult, but will await final cultures (2) Sepsis: Plan: present on admission - severe sepsis -- with associated ATN, lactic acidosis, hypotension, etc. sepsis resolved. presumed 2nd to RLE cellulitis. see above. doubt UTI or pneumonia. cont zosyn. day #8 of such. stopped daptomycin and changed to PO doxy for RLE cellulitis (to cover for MRSA) on 01/08/22. plan 2 more days of doxy then stop. follow blood cultures (3) Cellulitis: Plan: RLE. resolved. improved very nicely with zosyn + daptomycin --> now doxy in lieu of daptomycin. cont zosyn. cont po doxy 100mg BID. supportive care. elevate leg when in bed. cont gentle compression due to edema - tubigrip stocking ordered by wound care nurse -consider venous reflux workup as outpt but suspect peripheral edema all from right sided heart failure (4) ATN (acute tubular necrosis): Plan: sepsis-associated ATN. resolved. Cr now <1. peak was 1.87. repeat BMP am. (5) Hypotension: Plan: present on admission. 2nd to severe sepsis - resolved. beta dillan resumed diuretics resumed. alpha dillan for BPH resumed. (6) Acute metabolic encephalopathy: Plan: 2nd sepsis - resolved (7) Chronic obstructive pulmonary disease: Plan: with possible mild exacerbation s/p IV solumedrol in ER at time of presentation now on daily prednisone cont prednisone 20mg and cont to wean every 2-3 days to off. admission cxr with ? infiltrates - repeat cxr 01/07/22 without pneumonia cont albuterol nebs BID cont Umeclidinium [place] cont Fluticasone/vilanterol (8) Chronic systolic (congestive) heart failure: Plan: EF 40-45% based on records, with moderate RV dysfunction patient was intravascularly volume contracted in the setting of sepsis and poor po intake at time of admission s/p saline boluses now euvolemic or slightly volume up resumed lasix on 01/07 initially IV, now back to PO consider adding aldactone due to ascites from his cirrhosis cont metoprolol 25mg BID (9) Atrial fibrillation: Plan: patient typically takes metoprolol succinate 100mg daily this had been held due to hypotension early in his stay interestingly we have only been able to resume the metoprolol at 25mg BID with this lower dose he is having significant bradycardia with rates in the 30s/40s with sleep and 3 second pauses that are asymptomatic early in the stay he had significant tachycardia 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 obviously can't do anything for this at this time due to bacteremia, but will consult his Manufacturing Laborer for further eval cont metoprolol as is for now cont telemetry resume eliquis today and stop SC heparin as no further hematuria (10) Elevated bilirubin: Plan: 2019 the patient had severe cholecystitis which was treated with cholecystostomy tube and not cholecystectomy. The patient recovered from that episode. u/s of liver here with cirrhosis but no acute cholecystitis findings thus biliary tract cause of his sepsis not found. cirrhosis - cardiac in etiology? TANNER? 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: Plan: sutton placed 01/04 developed hematuria with sutton placement did not have hematuria prior to the sutton suspect bleeding/hematuria was from prostatic irritation in the setting of Eliquis use MRI abdomen without urinary tract pathology in October 2021 - no kidneys stones, etc Eliquis was held, and HEMATURIA resolved H/H remain stable dc Sutton in AM (12) Elevated troponin: Plan: no evidence of ACS this is likely myocardial demand ischemia in setting of sepsis (13) Hematuria: Plan: see above in #11 (14) Cirrhosis: Plan: as seen on u/s prior CT a/p in 2020 with early cirrhosis changes etiology? TANNER? 2nd to "cardiac" cirrhosis this will need to be addressed after acute issues have resolved resumed diuretics on 01/07 LFTs today stable consider adding aldactone due to presence of ascites (15) Candidiasis of mouth and esophagus: Plan: resolved cont nystatin 5cc qid (16) Constipation: Plan: finally resolved cont miralax and senna for bowel maintenance Plan cont PT/OT - needs rehab Dispo-progressing, awaiting culture results, may need rehab Admission and Anticipated Discharge Date Admission Date: January 03, 2022 Subjective Denies pain, has chronic SOB with exertion, feels weak in general. Is concerned about his low HRs. Tele with Afib with rates dropping to the 30s overnight with 3 second pauses, 50-70s otherwise. Review of Systems Review of Systems: All systems reviewed & are unremarkable except as noted in HPI & below Physical Exam Physical Exam: gen - nontoxic, NAD, AAOx3 mouth - MMM heart - irregular, s1 s2, regular rate; 1/6 systolic murmur LSB lungs - wheezes b/l unchanged; no rales, no increased work of breathing abd - BS+; NT; no HSM, soft ext - 1+ edema RLE, trace edema LLE; pulses 2+ b/l, cap refill < 2 sec skin - extensive ecchymoses on arms unchanged; cellulitis of right valdes resolved; small ulceration near R calf unchanged, less serous drainage today from this shallow ulcer Results & Data Results & Data ([facility]) Vital Signs (Past 12 Hours) Vital Signs Temp Pulse Pulse Resp BP BP Pulse Ox 01/11/22 16:32 59 L 01/11/22 14:58 36.5 C 62 19 140/67 93 01/11/22 12:07 36.6 C 69 17 126/59 L 94 01/11/22 11:44 01/11/22 09:32 36.4 C L 69 16 153/74 H 94 01/11/22 07:33 38 L 01/11/22 07:18 57 L 18 99 O2 Del Method O2 Flow Rate 01/11/22 16:32 01/11/22 14:58 Room Air 01/11/22 12:07 Room Air 01/11/22 11:44 Room Air 01/11/22 09:32 Room Air 01/11/22 07:33 01/11/22 07:18 Nasal Cannula 2 Laboratory Results 01/11/22 Range/Units 07:22 Sodium 140 (136-145) mmol/L Potassium 4.1 (3.5-5.1) mmol/L Chloride 102 (98-107) mmol/L Carbon Dioxide 36 H (21-32) mmol/L Anion Gap 2 L (3-11) BUN 20 (6-23) mg/dl Creatinine 0.96 (0.6-1.4) mg/dl Est Cr Clr Drug Dosing 66.5 ml/min Est GFR ( Amer) 86.8 ml/min Est GFR (Non-Af Amer) 74.9 ml/min BUN/Creatinine Ratio 21.0 H (10-20) Glucose 94 (70-99(Fasting)) mg/dl Calcium 8.4 L (8.5-10.1) mg/dl Total Bilirubin 1.0 (0.2-1.0) mg/dl AST 16 (13-39) U/L ALT 16 (7-52) U/L Alkaline Phosphatase 89 (34-104) U/L Total Protein 4.8 L (6.0-8.3) gm/dl Albumin 3.1 L (3.4-5.0) gm/dl Globulin 1.7 L (2.5-4.0) gm/dl Albumin/Globulin Ratio 1.8 (0.9-2) PG Care Time/CCT Total # of Minutes Spent Total Time Spent with Patient: Total time spent is greater than 50% in coordination of care (as documented) at patient's floor/unit and/or counseling patient: Coding Level of Care Code 83535 Subseq Hosp Care Lvl 2 Diagnoses Bacteremia R78.81 Sepsis A41.9 Cellulitis L03.90 ATN (acute tubular necrosis) N17.0 Hypotension I95.9 Acute metabolic encephalopathy G93.41 Chronic obstructive pulmonary disease J44.9 Chronic systolic (congestive) heart failure I50.22 Atrial fibrillation I48.21 Atrial fibrillation type: permanent Elevated bilirubin R17 BPH with obstruction/lower urinary tract symptoms N40.1; N13.8 Elevated troponin R77.8 Hematuria R31.9 Cirrhosis K74.60 Candidiasis of mouth and esophagus B37.81; B37.0 Constipation K59.00 (1) Atrial fibrillation Atrial fibrillation type: permanent Qualified Code(s): I48.21 - Permanent atrial fibrillation
[2022-01-11] MEDS: SENNA 8.6 MG TAB PO SCH (21:39)
[2022-01-11] MEDS: APIXABAN 5 MG TABLET PO SCH (21:44)
[2022-01-11] MEDS: ATORVASTATIN 20 MG TAB PO SCH (21:44)
[2022-01-12] MEDS: PIPERACILLIN/TAZOBACTAM 3.375 GM in DEXTROSE 5% 100 ML IV SCH ×3 (02:50→17:36)
[2022-01-12] MEDS: ALBUT/IPRATROP 3MG/0.5MG NEB 3 ML VIAL INH SCH ×2 (06:52→19:45)
[2022-01-12 07:29] LABS: Eosinophils # (auto) 0.03 K/uL (0-0.50); Eosinophils % (auto) 0.5 %; Hematocrit (blood only) 31.3 % (40.1-51.0); Immature Granulocytes % (auto) 1.8 %; Lymphocytes # (auto) 0.65 K/uL (1.2-3.4); Lymphocytes % (auto) 11.8 %; Mean Corpuscular Hemoglobin 30.6 pg (25.0-34.0); Mean Corpuscular Hgb Conc 31.9 g/dL (32.0-36.0); Mean Corpuscular Volume 95.7 fL (80.0-100.0); Mean Platelet Volume 11.3 fL (9.4-12.4); Monocytes # (auto) 0.48 K/uL (0.24-0.82); Monocytes % (auto) 8.7 %; Neutrophils # (auto) 4.25 K/uL (1.4-6.5); Neutrophils % (auto) 77.2 %; Platelet Count 180 K/uL (130-400); RDW Coefficient of Variation 14.7 % (11.5-14.5); RDW Standard Deviation 51.5 fL (36.4-46.3); Red Blood Count 3.27 M/uL (4.63-6.08); White Blood Count 5.51 K/ul (4.8-10.8)
[2022-01-12] MEDS: MULTIVITAMIN TAB PO SCH (08:20)
[2022-01-12] MEDS: PANTOprazole 40 MG TAB PO SCH (08:20)
[2022-01-12] MEDS: predniSONE 20 MG TAB PO SCH (08:21)
[2022-01-12] MEDS: FUROSEMIDE 40 MG TAB PO SCH (08:21)
[2022-01-12] MEDS: ADVANCED PROBIOTIC 1250 MG CAPSULE PO SCH (08:21)
[2022-01-12] MEDS: METOPROLOL TARTRATE 25 MG TAB PO SCH ×2 (08:22→20:14)
[2022-01-12] MEDS: DOXYCYCLINE HYCLATE 100 MG CAP PO SCH ×2 (08:22→20:14)
[2022-01-12] MEDS: APIXABAN 5 MG TABLET PO SCH ×2 (08:22→20:14)
[2022-01-12] MEDS: ALFUZOSIN HCL 10 MG TAB PO SCH (08:22)
[2022-01-12] MEDS: FLUTICASONE/VILANTEROL 200/25MCG 14 PUFFS/INHALER INH SCH (08:22)
[2022-01-12] MEDS: POLYETHYLENE (MIRALAX) 17 GM PACK PO SCH ×2 (08:23→20:11)
[2022-01-12] MEDS: NYSTATIN SUSP 500,000 U/5 ML UDC PO SCH ×4 (08:23→20:10)
[2022-01-12] MEDS: UMECLIDINIUM BROMIDE 62.5MCG/BLISTER 7 PUFFS/INHALER INH SCH (08:23)
[2022-01-12 08:24] LABS: Albumin Globulin Ratio 1.9 (0.9-2); BUN Creatinine Ratio 18.4 (10-20); C Reactive Protein 0.8 mg/dl (0-0.5); Calcium 8.4 mg/dl (8.5-10.1); Creatinine Clr Calc Pharmacy 65.1 ml/min; Est GFR (African American) 84.6 ml/min; Globulin 1.6 gm/dl (2.5-4.0); Magnesium 1.8 mg/dl (1.7-2.4); Potassium 4.2 mmol/L (3.5-5.1); Total Protein 4.6 gm/dl (6.0-8.3)
--- NOTE | 2022-01-12 10:44 | Cardiology Consultation ---
Date of Consultation January 12, 2022 Assessment & Plan (1) Bradycardia: (2) Atrial fibrillation: (3) Cardiomyopathy: (4) Elevated troponin: (5) History of heart valve replacement: Plan 1. Bradycardia: Patient does have some bradycardia at nighttime and occasional 2nd periods of ventricular asystole. However, these happen in the service liaison representative hours. During the daytime his heart rates appear to be in the normal range. He did not describe symptoms consistent with symptomatic bradycardia or pauses. I do not think this is a clinical problem currently. He seems to be doing well on his current dose of metoprolol tartrate. I believe this could be converted to 50 mg of metoprolol succinate at discharge or prior. His heart rates in symptoms can be monitored in the outpatient setting subsequently. 2. Atrial fibrillation: Permanent. As noted above, adequate rate control. Systemic anticoagulation resumed. No overt symptoms. 3. Elevated troponin: Patient did have some elevated cardiac biomarkers at the time of admission. Illness rather than an acute coronary syndrome. While his coronary angiography was performed in 2014, he has not had symptoms coronary insufficiency or angina recently. Treatment is supportive. 4. Cardiomyopathy: He has a longstanding history of mildly reduced LV systolic function. He is known to have elevated pulmonary pressures any history of both right and left heart failure at times. He has been maintained on metoprolol succinate, lisinopril and Lasix. Lisinopril, Lasix and metoprolol were initially held due to hemodynamic instability. Metoprolol tartrate has been reintroduced at a low dose. Diuretic has also been reinstituted. He would likely benefit from a more aggressive regimen for heart failure. 5. History of mitral valve replacement: Bioprosthetic mitral valve with normal function last evaluated in October of this year. Recommendations: 1. Continue current dose of beta-blockade converting to metoprolol succinate 50 mg daily at or prior to discharge 2. Consider changing lisinopril to Entresto. This would be a good opportunity to initiate Entresto as his lisinopril has been held for several days. Renal function appears to have returned to normal. 3. Agree with the addition of spironolactone, monitoring renal function and electrolytes closely 4. Patient also be a good candidate for Jardiance or Farxiga although this could be deferred to the outpatient setting. I suppose we would also want to be c onfident in his current infection is not a urinary source before starting these medications. History of Present Illness Reason for Consultation: Bradycardia Requesting Physician: Sagrario Attending Physician: Mireya Zabala MD History of Present Illness The patient is a 81-year-old gentleman with a history of permanent atrial fibrillation and a mild nonischemic cardiomyopathy who was admitted to the hospital with Gram-negative bacteremia. The patient had not been feeling well for a few days leading up to his admission. Symptoms are mostly constitutional in nature but he did have some confusion and reported subjective fevers. Patient states that he did suffer a fall recently. However this appears to have been mechanical in the not involve symptoms of dizziness or lightheadedness. He did not believe he lost consciousness. He did develop some swelling and erythema involving the right leg any reports being quite painful at the time of admission. During his admission he was noted to have a mildly elevated troponin level and on telemetry he was noted to have bradycardia as well as brief pauses in the setting of permanent atrial fibrillation. Patient states that he has not been dizzy or lightheaded. He has not noticed any palpitations recently. At home he is fairly sedentary but is ambulatory around his residence. If he walks long distances he does get somewhat short of breath. He is also known to be hypoxic with ambulation. He denies orthopnea or paroxysmal nocturnal dyspnea. He denies other episodes of dizziness or lightheadedness. One episode of syncope quite remotely. This was on a hot day, he was walking rapidly and had consumed a few alcoholic beverages. Allergies Allergy/AdvReac Type Severity Reaction Status Date / Time cephalexin [From Keflex] Allergy Hives Unverified 01/10/22 15:27 Home Medications Medication Instructions Recorded Confirmed Type nebulizer accessories #1 ea 03/26/19 12/28/21 Rx nebulizers #1 ea 03/28/19 12/28/21 Rx multivitamin (Daily Multi-Vitamin 1 tab PO QAM 07/20/20 01/03/22 History tablet) atorvastatin 20 mg tablet 20 mg PO HS #90 tabs 12/25/20 01/03/22 Rx omeprazole 20 mg capsule,delayed 20 mg PO DAILY #90 caps 01/21/21 01/03/22 Rx release ipratropium 0.5 mg-albuterol 3 mg 3 ml inhalation QID PRN shortness 01/29/21 01/03/22 Rx (2.5 mg base)/3 mL nebulization of breath or wheezing #360 mL soln alfuzosin 10 mg tablet,extended 10 mg PO DAILY #90 tabs 07/13/21 01/03/22 Rx release 24 hr (Uroxatral) budesonide-formoterol HFA 160 2 puff inhalation BID #10.2 grams 09/27/21 01/03/22 Rx mcg-4.5 mcg/actuation aerosol inhaler (Symbicort) metoprolol succinate 100 mg 100 mg PO QPM 09/27/21 01/03/22 History tablet,extended release 24 hr Oxygen Home #2 L 10/14/21 12/28/21 Rx tiotropium bromide 2.5 2 puff inhalation DAILY #4 grams 10/15/21 01/03/22 Rx mcg/actuation mist for inhalation (Spiriva Respimat) apixaban 5 mg tablet (Eliquis) See Rx Instructions .Route 10/25/21 01/03/22 Rx .COMPLEX #180 tabs furosemide 40 mg tablet (Lasix) 40 mg PO DAILY 11/25/21 01/03/22 History albuterol sulfate 90 mcg/actuation 2 puff inhalation QID PRN 12/22/21 01/03/22 Rx aerosol inhaler (Ventolin HFA) shortness of breath or wheezing #18 grams Patient History Medical History (Updated 01/12/22 @ 10:41 by Maurisio Jorgensen MD) Abnormal CT scan, chest Atrial fibrillation BPH with obstruction/lower urinary tract symptoms Chronic obstructive pulmonary disease Diverticulosis GERD (gastroesophageal reflux disease) Hernia, inguinal, left History of Mohs micrographic surgery for skin cancer Hyperlipidemia Hypertension NSTEMI (non-ST elevated myocardial infarction) SNHL (sensorineural hearing loss) Surgical History (Updated 01/12/22 @ 10:41 by Maurisio Jorgensen MD) Fistula REPAIRED History of cardiac cath History of cardiac radiofrequency ablation 5-6 YEARS AGO ([facility] BY DR. 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) Family History Father Family hx colonic polyps Mother Heart disease Other Hypertension Social History Smoking Status: Former smoker Tobacco Type: Cigarettes Age Started Using Tobacco: 17; Age Quit Using Tobacco: 62; packs per day: 2; Years Smoked: 45; Cigarettes Per Day: 40; Second Hand Exposure: No; Hx Alcohol Use: Yes Alcohol type: beer Alcohol Intake Frequency: 2-3 x/Week Hx Substance Use: No Preferred Language: French Communication Ability: Effective Visual Impairment: Limited Hearing Ability: Normal Card Hand Required: No Beliefs That Will Affect Care: None marital status: Current Living Situation: Spouse current occupational status: retired Feels Safe at Home: Yes Childhood Exposure to Second-Hand Smoke: Yes caffeine: Yes Dental Care, Regularly: Yes Physical Activity Frequency: 1-2 Times per Week Physical Activity Frequency Comment: walks Seatbelt Use: always Sunscreen Use: Yes Do you think of yourself as: straight/heterosexual Assistive Devices: Nebulizer and Oxygen - at Night Review of Systems Review of Systems: Per HPI Physical Exam Physical Exam: The patient is alert and oriented. Mood and affect appeared normal. He answered all questions appropriately. HEENT: Pupils are equal and reactive to light and accommodation. Extraocular movements are intact. The sclerae are anicteric. Neuro: Cranial nerves intact Lungs: Clear to auscultation bilaterally. He has good air movement without use of accessory muscles. No rales wheezes or rhonchi. Prolonged expiratory phase. Cardiac: Heart demonstrates an irregular rate and rhythm. Normal S1 and S2. No murmurs on examination. Pulses: The patient has palpable radial pulses bilaterally that are equal in intensity Extremities: There was no evidence of hypoperfusion. There is no cyanosis or clubbing. There is no edema. The right leg is wrapped. Skin: I did not appreciate any rashes on examination today. Severe diffuse ecchymosis Results & Data ([facility]) Vital Signs (Past 12 Hours) Vital Signs Temp Pulse Resp BP BP Pulse Ox O2 Del Method 01/12/22 07:45 36.7 C 58 L 20 128/62 100 Nasal Cannula 01/12/22 07:00 36.8 C 56 L 20 150/67 H 100 Nasal Cannula 01/12/22 06:54 48 L 18 97 Nasal Cannula 01/12/22 04:00 36.4 C L 52 L 20 143/69 H 94 Room Air O2 Flow Rate 01/12/22 07:45 2 01/12/22 07:00 2 01/12/22 06:54 2 01/12/22 04:00 Laboratory Results Abnormal Lab Results 01/12/22 01/12/22 07:05 07:05 WBC 5.51 RBC 3.27 L Hgb 10.0 L Hct 31.3 L MCV 95.7 MCH 30.6 MCHC 31.9 L RDW Std Deviation 51.5 H RDW Coeff of Kamron 14.7 H Plt Count 180 MPV 11.3 Immature Gran % (Auto) 1.8 Neut % (Auto) 77.2 Lymph % (Auto) 11.8 [place] % (Auto) 8.7 Eos % (Auto) 0.5 Baso % (Auto) 0.0 Neut # (Auto) 4.25 Lymph # (Auto) 0.65 L [place] # (Auto) 0.48 Eos # (Auto) 0.03 Baso # (Auto) 0.00 Immature Gran # (Auto) 0.10 H Sodium 140 Potassium 4.2 Chloride 103 Carbon Dioxide 36 H Anion Gap 1 L BUN 18 Creatinine 0.98 Est Cr Clr Drug Dosing 65.1 Est GFR ( Amer) 84.6 Est GFR (Non-Af Amer) 73.0 BUN/Creatinine Ratio 18.4 Glucose 96 Calcium 8.4 L Magnesium 1.8 Total Bilirubin 1.0 AST 16 ALT 16 Alkaline Phosphatase 89 C-Reactive Protein 0.80 H Total Protein 4.6 L Albumin 3.0 L Globulin 1.6 L Albumin/Globulin Ratio 1.9 Diagnostic Findings Echocardiogram performed 10/21/2021: Ejection fraction 40-45%. Moderate global hypokinesis. Moderate right ventricular dilation. Moderately reduced right ventricular systolic function. Bioprosthetic mitral valve with normal gradients. Cardiac catheterization in 2014 demonstrated elevated right and left-sided heart pressures with nonobstructive coronary disease. Severe mitral regurgitation. ECG Additional Comments: EKG the time admission revealed atrial fibrillation right bundle branch block. PG Care Time/CCT Total # of Minutes Spent Total Time Spent with Patient: Total time spent is greater than 50% in coordination of care (as documented) at patient's floor/unit and/or counseling patient: Coding Level of Care Code 26272 Initial Inpt Care Lvl 3 Diagnoses Bradycardia R00.1 Atrial fibrillation I48.21 Atrial fibrillation type: permanent Cardiomyopathy I42.9 Cardiomyopathy type: unspecified Elevated troponin R77.8 History of heart valve replacement Z95.2 (1) Atrial fibrillation Atrial fibrillation type: permanent Qualified Code(s): I48.21 - Permanent atrial fibrillation (2) Cardiomyopathy Cardiomyopathy type: unspecified Qualified Code(s): I42.9 - Cardiomyopathy, unspecified
--- NOTE | 2022-01-12 19:18 | Hospitalist Progress Note ---
Date of Service January 12, 2022 Assessment & Plan (1) Bacteremia: Plan: clinically resolved. admission blood cultures from 01/04 with gram negative rods. repeat blood cultures 01/05/22 - negative. I spoke with microbiology - they had difficult time identifying the organism. It is oxidative positive but final ID is uncertain. Culture to be sent out to reference lab ([place]) on 01/10/22- still awaiting result suspected source - RLE cellulitis. urine unlikely source (and culture negative). gall bladder was normal on RUQ u/s - no signs of cholecystitis. serial cxrs without discrete pneumonia. continue zosyn until GNR is identified and sensitivities are available. today is day #9 of IV zosyn. if GNR is a very atypical pathogen - is the source something other than the skin?? regardless of which pathogen it is - planning 14 days of Rx since date of negative blood culture (01/05/22 re-draw). May need to consider ID consult, but will await final cultures (2) Sepsis: Plan: present on admission - severe sepsis -- with associated ATN, lactic acidosis, hypotension, etc. sepsis resolved. presumed 2nd to RLE cellulitis. see above. doubt UTI or pneumonia. cont zosyn and po doxy as above stopped daptomycin and changed to PO doxy for RLE cellulitis (to cover for MRSA) on 01/08/22. plan 1 more day of doxy then stop. follow blood cultures (3) Cellulitis: Plan: RLE. resolved. improved very nicely with zosyn + daptomycin --> now doxy in lieu of daptomycin. supportive care. elevate leg when in bed. cont gentle compression due to edema - tubigrip stocking ordered by wound care nurse -consider venous reflux workup as outpt but suspect peripheral edema all from right sided heart failure -adding on aldactone for diuretic (4) ATN (acute tubular necrosis): Plan: sepsis-associated ATN. resolved. Cr now <1. peak was 1.87. repeat BMP am. (5) Hypotension: Plan: present on admission. 2nd to severe sepsis - resolved. beta dillan resumed diuretics resumed. alpha dillan for BPH resumed. adding on Entresto and aldactone-watch BP (6) Acute metabolic encephalopathy: Plan: 2nd sepsis - resolved (7) Chronic obstructive pulmonary disease: Plan: with possible mild exacerbation s/p IV solumedrol in ER at time of presentation now on daily prednisone cont prednisone 20mg and cont to wean every 2-3 days to off. admission cxr with ? infiltrates - repeat cxr 01/07/22 without pneumonia cont albuterol nebs BID cont Umeclidinium [place] cont Fluticasone/vilanterol (8) Chronic systolic (congestive) heart failure: Plan: EF 40-45% based on records, with moderate RV dysfunction patient was intravascularly volume contracted in the setting of sepsis and poor po intake at time of admission s/p saline boluses now euvolemic or slightly volume up resumed lasix on 01/07-initially IV, now back to PO Appreciate Cardiology consult-agrees with adding aldactone due to ascites from his cirrhosis as well as for CHF-will start 12.5mg po daily -has been off lisinopril now for many days--> start Entresto low dose bid -convert back to Toprol XL at lower dose of 50mg daily (home dose 100mg but h aving bradycardia) -consider adding on Jardiance as outpt (9) Atrial fibrillation: Plan: patient typically takes metoprolol succinate 100mg daily this had been held due to hypotension early in his stay interestingly we have only been able to resume the metoprolol at 25mg BID with this lower dose he is having significant bradycardia with rates in the 30s/40s with sleep and 3 second pauses that are asymptomatic early in the stay he had significant tachycardia cont telemetry Appreciate Cardiology consult-not concerning, no need for pacer continue eliquis (10) Elevated bilirubin: Plan: 2019 the patient had severe cholecystitis which was treated with cholecystostomy tube and not cholecystectomy. The patient recovered from that episode. u/s of liver here with cirrhosis but no acute cholecystitis findings thus biliary tract cause of his sepsis not found. cirrhosis - cardiac in etiology? TANNER? 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: Plan: schreiber placed 01/04 developed hematuria with schreiber placement did not have hematuria prior to the schreiber suspect bleeding/hematuria was from prostatic irritation in the setting of Eliquis use MRI abdomen without urinary tract pathology in October 2021 - no kidneys stones, etc Eliquis was held, and HEMATURIA resolved H/H remain stable dcd Schreiber and passed TOV 01/12 Unfortunately, suffered accidental skin tear on left anterior thigh after pulling off tape from Schreiber securement site-continue wound care (12) Elevated troponin: Plan: no evidence of ACS this is likely myocardial demand ischemia in setting of sepsis (13) Hematuria: Plan: see above (14) Cirrhosis: Plan: as seen on u/s prior CT a/p in 2019 with early cirrhosis changes etiology? TANNER? 2nd to "cardiac" cirrhosis this will need to be addressed after acute issues have resolved resumed diuretics on 01/07 LFTs today stable adding aldactone due to presence of ascites (15) Candidiasis of mouth and esophagus: Plan: resolved cont nystatin 5cc qid (16) Constipation: Plan: finally resolved cont miralax and senna for bowel maintenance Plan cont PT/OT - needs rehab as per OT but PT not saying rehab? Pt prefers home with home health, will see how he progresses Dispo-progressing, awaiting culture results Admission and Anticipated Discharge Date Admission Date: January 03, 2022 Subjective Schreiber removed this AM and passed TOV but unfortunately as the tape was pulled off from his left thigh from the Schreiber securement site, it tore his skin. Wound care saw him, pictures reviewed, some minor bleeding. Otherwise, feels better, ambulated in room a bit today. Is eating and moving bowels. Tele with afib, some 3 sec pauses overnight Discussed care with Cardiology Review of Systems Review of Systems: All systems reviewed & are unremarkable except as noted in HPI & below Physical Exam Physical Exam: gen - nontoxic, NAD, AAOx3 mouth - MMM heart - irregular, s1 s2, regular rate; 1/6 systolic murmur LSB lungs - CTAB,no wcr, no increased work of breathing abd - BS+; NT; no HSM, soft ext - 1+ edema RLE, trace edema LLE; pulses 2+ b/l, cap refill < 2 sec skin - extensive ecchymoses on arms unchanged; cellulitis of right valdes resolved; small ulceration near R calf unchanged, less serous drainage today from this shallow ulcer; left anterior thigh with large skin tear, dressing soaked with blood Results & Data Results & Data ([facility]) Vital Signs (Past 12 Hours) Vital Signs Temp Pulse Pulse Pulse Resp BP BP 01/12/22 18:54 36.7 C 67 18 132/64 01/12/22 18:00 01/12/22 16:03 36.5 C 69 18 154/65 H 01/12/22 14:51 36.7 C 66 18 120/72 01/12/22 12:30 40 L 01/12/22 11:09 36.2 C L 74 16 142/78 H 01/12/22 11:02 01/12/22 07:45 36.7 C 58 L 20 128/62 Pulse Ox Pulse Ox O2 Del Method O2 Del Method O2 Flow Rate 01/12/22 18:54 94 Room Air 01/12/22 18:00 94 Room Air 01/12/22 16:03 97 Nasal Cannula 2 01/12/22 14:51 92 Room Air 01/12/22 12:30 01/12/22 11:09 91 Room Air 01/12/22 11:02 Room Air 01/12/22 07:45 100 Nasal Cannula 2 Laboratory Results 01/12/22 01/12/22 Range/Units 07:05 07:05 WBC 5.51 (4.8-10.8) K/ul RBC 3.27 L (4.63-6.08) M/uL Hgb 10.0 L (14.0-18.0) g/dl Hct 31.3 L (40.1-51.0) % MCV 95.7 (80.0-100.0) fL MCH 30.6 (25.0-34.0) pg MCHC 31.9 L (32.0-36.0) g/dL RDW Std Deviation 51.5 H (36.4-46.3) fL RDW Coeff of Kamron 14.7 H (11.5-14.5) % Plt Count 180 (130-400) K/uL MPV 11.3 (9.4-12.4) fL Immature Gran % (Auto) 1.8 % Neut % (Auto) 77.2 % Lymph % (Auto) 11.8 % Jay % (Auto) 8.7 % Eos % (Auto) 0.5 % Baso % (Auto) 0.0 % Neut # (Auto) 4.25 (1.4-6.5) K/uL Lymph # (Auto) 0.65 L (1.2-3.4) K/uL Jay # (Auto) 0.48 (0.24-0.82) K/uL Eos # (Auto) 0.03 (0-0.50) K/uL Baso # (Auto) 0.00 (0-0.2) K/uL Immature Gran # (Auto) 0.10 H (0.00-0.02) K/uL Sodium 140 (136-145) mmol/L Potassium 4.2 (3.5-5.1) mmol/L Chloride 103 (98-107) mmol/L Carbon Dioxide 36 H (21-32) mmol/L Anion Gap 1 L (3-11) BUN 18 (6-23) mg/dl Creatinine 0.98 (0.6-1.4) mg/dl Est Cr Clr Drug Dosing 65.1 ml/min Est GFR ( Amer) 84.6 ml/min Est GFR (Non-Af Amer) 73.0 ml/min BUN/Creatinine Ratio 18.4 (10-20) Glucose 96 (70-99(Fasting)) mg/dl Calcium 8.4 L (8.5-10.1) mg/dl Magnesium 1.8 (1.7-2.4) mg/dl Total Bilirubin 1.0 (0.2-1.0) mg/dl AST 16 (13-39) U/L ALT 16 (7-52) U/L Alkaline Phosphatase 89 (34-104) U/L C-Reactive Protein 0.80 H (0-0.5) mg/dl Total Protein 4.6 L (6.0-8.3) gm/dl Albumin 3.0 L (3.4-5.0) gm/dl Globulin 1.6 L (2.5-4.0) gm/dl Albumin/Globulin Ratio 1.9 (0.9-2) PG Care Time/CCT Total # of Minutes Spent Total Time Spent with Patient: Total time spent is greater than 50% in coordination of care (as documented) at patient's floor/unit and/or counseling patient: Coding Level of Care Code 09364 Subseq Hosp Care Lvl 2 Diagnoses Bacteremia R78.81 Sepsis A41.9 Cellulitis L03.90 ATN (acute tubular necrosis) N17.0 Hypotension I95.9 Acute metabolic encephalopathy G93.41 Chronic obstructive pulmonary disease J44.9 Chronic systolic (congestive) heart failure I50.22 Atrial fibrillation I48.21 Atrial fibrillation type: permanent Elevated bilirubin R17 BPH with obstruction/lower urinary tract symptoms N40.1; N13.8 Elevated troponin R77.8 Hematuria R31.9 Cirrhosis K74.60 Candidiasis of mouth and esophagus B37.81; B37.0 Constipation K59.00 (1) Atrial fibrillation Atrial fibrillation type: permanent Qualified Code(s): I48.21 - Permanent atrial fibrillation
[2022-01-12] MEDS: SENNA 8.6 MG TAB PO SCH (20:11)
[2022-01-12] MEDS: ATORVASTATIN 20 MG TAB PO SCH (20:14)
[2022-01-12] MEDS: VALSARTAN/SACUBITRIL 26/24MG TAB PO SCH (20:17)
[2022-01-13] MEDS: PIPERACILLIN/TAZOBACTAM 3.375 GM in DEXTROSE 5% 100 ML IV SCH ×3 (02:15→16:25)
[2022-01-13] MEDS: ALBUT/IPRATROP 3MG/0.5MG NEB 3 ML VIAL INH SCH ×2 (07:13→19:04)
[2022-01-13] MEDS: DOXYCYCLINE HYCLATE 100 MG CAP PO SCH ×2 (07:31→20:32)
[2022-01-13] MEDS: ALFUZOSIN HCL 10 MG TAB PO SCH (07:32)
[2022-01-13] MEDS: APIXABAN 5 MG TABLET PO SCH ×2 (07:32→20:31)
[2022-01-13] MEDS: MULTIVITAMIN TAB PO SCH (07:32)
[2022-01-13] MEDS: PANTOprazole 40 MG TAB PO SCH (07:32)
[2022-01-13] MEDS: FUROSEMIDE 40 MG TAB PO SCH (07:32)
[2022-01-13] MEDS: ADVANCED PROBIOTIC 1250 MG CAPSULE PO SCH (07:32)
[2022-01-13] MEDS: SENNA 8.6 MG TAB PO SCH (07:32)
[2022-01-13] MEDS: predniSONE 20 MG TAB PO SCH (07:33)
[2022-01-13] MEDS: SPIRONOLACTONE 12.5 MG TAB PO SCH (07:34)
[2022-01-13] MEDS: VALSARTAN/SACUBITRIL 26/24MG TAB PO SCH ×2 (07:34→20:32)
[2022-01-13] MEDS: FLUTICASONE/VILANTEROL 200/25MCG 14 PUFFS/INHALER INH SCH (07:35)
[2022-01-13] MEDS: UMECLIDINIUM BROMIDE 62.5MCG/BLISTER 7 PUFFS/INHALER INH SCH (07:35)
[2022-01-13] MEDS: NYSTATIN SUSP 500,000 U/5 ML UDC PO SCH ×2 (07:36→10:44)
[2022-01-13] MEDS: POLYETHYLENE (MIRALAX) 17 GM PACK PO SCH ×2 (07:36→20:32)
[2022-01-13 07:53] LABS: BUN Creatinine Ratio 19.8 (10-20); Calcium 8.1 mg/dl (8.5-10.1); Creatinine Clr Calc Pharmacy 74.2 ml/min; Est GFR (African American) 95.6 ml/min; Est GFR (Non-African American) 82.5 ml/min; Magnesium 1.7 mg/dl (1.7-2.4)
[2022-01-13] MEDS: METOPROLOL SUCC 50MG EXT REL TAB PO SCH (07:53)
[2022-01-13] MEDS: MAGNESIUM SULFATE / D5W 1 GM/100 ML BAG IV SCH ×2 (11:04→12:41)
--- NOTE | 2022-01-13 13:51 | Hospitalist Progress Note ---
Date of Service January 13, 2022 Assessment & Plan (1) Bacteremia: Plan: clinically resolved. admission blood cultures from 01/04 with gram negative rods--> sent to [facility] for further ID and prelim report is Myroides ceti, sensitivities pending. repeat blood cultures 01/05/22 - negative. 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 suspected source - RLE cellulitis. urine unlikely source (and culture negative). gall bladder was normal on RUQ u/s - no signs of cholecystitis. No abd pains, no signs of SBP and has only mild ascites on US serial cxrs without discrete pneumonia. -has received 10 days now of zosyn -placed ID consult-awaiting final recommendations after chart review but it seems since infection has cleared from blood and leg cellulitis is resolved, all antibiotics can likely be stopped (2) Sepsis: Plan: present on admission - severe sepsis -- with associated ATN, lactic acidosis, hypotension, etc. sepsis resolved. presumed 2nd to RLE cellulitis. see above. (3) Cellulitis: Plan: RLE. resolved. improved very nicely with zosyn + daptomycin --> now doxy in lieu of daptomycin. supportive care. elevate leg when in bed. cont gentle compression due to edema - tubigrip stocking ordered by wound care nurse -consider venous reflux workup as outpt but suspect peripheral edema all from right sided heart failure -added on aldactone for diuretic (4) ATN (acute tubular necrosis): Plan: sepsis-associated ATN. resolved. (5) Hypotension: Plan: present on admission. 2nd to severe sepsis - resolved. beta dillan resumed diuretics resumed. alpha dillan for BPH resumed. added on Entresto and aldactone-watch BP-stable so far (6) Acute metabolic encephalopathy: Plan: 2nd sepsis - resolved (7) Chronic obstructive pulmonary disease: Plan: with possible mild exacerbation s/p IV solumedrol in ER at time of presentation now on daily prednisone but today last day admission cxr with ? infiltrates - repeat cxr 01/07/22 without pneumonia cont albuterol nebs BID cont Umeclidinium [place] cont Fluticasone/vilanterol (8) Chronic systolic (congestive) heart failure: Plan: EF 40-45% based on records, with moderate RV dysfunction patient was intravascularly volume contracted in the setting of sepsis and poor po intake at time of admission s/p saline boluses now euvolemic or slightly volume up resumed lasix on 01/07-initially IV, now back to PO Appreciate Cardiology consult-agrees with adding aldactone due to ascites from his cirrhosis as well as for CHF-started 12.5mg po daily -was off lisinopril now for many days--> started Entresto low dose bid-will cameron check with insurance -converted back to Toprol XL at lower dose of 50mg daily (home dose 100mg but having bradycardia) -consider adding on Jardiance as outpt (9) Atrial fibrillation: Plan: patient typically takes metoprolol succinate 100mg daily this had been held due to hypotension early in his stay interestingly we have only been able to resume the metoprolol at 25mg BID with this lower dose he is having significant bradycardia with rates in the 30s/40s with sleep and 3 second pauses that are asymptomatic early in the stay he had significant tachycardia when off beta dillan cont telemetry Appreciate Cardiology consult-not concerning, no need for pacer continue eliquis -now on Toprol XL 50mg daily -replace magnesium and add po Mag (10) Elevated bilirubin: Plan: 2019 the patient had severe cholecystitis which was treated with cholecystostomy tube and not cholecystectomy. The patient recovered from that episode. u/s of liver here with cirrhosis but no acute cholecystitis findings , with mild ascites no abd pain cirrhosis - cardiac in etiology? TANNER? 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: Plan: schreiber placed 01/04 developed hematuria with schreiber placement did not have hematuria prior to the schreiber suspect bleeding/hematuria was from prostatic irritation in the setting of Eliquis use MRI abdomen without urinary tract pathology in October 2021 - no kidneys stones, etc Eliquis was held, and HEMATURIA resolved H/H remain stable dcd Schreiber and passed TOV 01/12 Unfortunately, suffered accidental skin tear on left anterior thigh after pulling off tape from Schreiber securement site-continue wound care (12) Elevated troponin: Plan: no evidence of ACS this is likely myocardial demand ischemia in setting of sepsis (13) Hematuria: Plan: see above (14) Cirrhosis: Plan: as seen on u/s prior CT a/p in 2020 with early cirrhosis changes etiology? TANNER? 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-needs repeat MRI 6 months from the last (15) Candidiasis of mouth and esophagus: Plan: resolved dc nystatin 5cc qid (16) Constipation: Plan: finally resolved cont miralax and senna for bowel maintenance Plan cont PT/OT - improving, can go home with home health likely tomorrow after ID consult and to ensure BPs ok with addition of new cardiac meds Dispo-progressing, awaiting culture results Admission and Anticipated Discharge Date Admission Date: January 03, 2022 Subjective Feeling better. Had a little bit of lightheadedness with standing this AM since starting ENtresto last evening but since then feels well. No abd pains, no fevers. Discussed his case with ID after received word from [facility] that he is growing Myroides ceti, sensitivities pending, on BCxs. Tele with Afib, rates drop to low 30s at times with sleep, but in 50-60s when awake Review of Systems Review of Systems: All systems reviewed & are unremarkable except as noted in HPI & below Physical Exam Physical Exam: gen - nontoxic, NAD, AAOx3 mouth - MMM heart - irregular, s1 s2, regular rate; 1/6 systolic murmur LSB lungs - CTAB,no wcr, no increased work of breathing abd - BS+; NT; no HSM, soft ext - 1+ edema RLE, trace edema LLE; pulses 2+ b/l, cap refill < 2 sec skin - extensive ecchymoses on arms unchanged; cellulitis of right valdes resolved; small ulceration near R calf unchanged; left anterior thigh with large skin tear, dressing soaked with blood Results & Data Results & Data ([facility]) Vital Signs (Past 12 Hours) Vital Signs Temp Pulse Resp BP Pulse Ox O2 Del Method O2 Flow Rate 01/13/22 11:06 36.5 C 58 L 19 108/61 95 Room Air 01/13/22 08:08 36.5 C 47 L 20 126/59 L 100 Nasal Cannula 2 01/13/22 07:14 46 L 18 100 Nasal Cannula 2 01/13/22 03:00 36.4 C L 51 L 20 133/61 100 Nasal Cannula 2 Laboratory Results 01/13/22 Range/Units 06:50 Sodium 140 (136-145) mmol/L Potassium 4.0 (3.5-5.1) mmol/L Chloride 104 (98-107) mmol/L Carbon Dioxide 33 H (21-32) mmol/L Anion Gap 3 (3-11) BUN 17 (6-23) mg/dl Creatinine 0.86 (0.6-1.4) mg/dl Est Cr Clr Drug Dosing 74.2 ml/min Est GFR ( Amer) 95.6 ml/min Est GFR (Non-Af Amer) 82.5 ml/min BUN/Creatinine Ratio 19.8 (10-20) Glucose 102 H (70-99(Fasting)) mg/dl Calcium 8.1 L (8.5-10.1) mg/dl Magnesium 1.7 (1.7-2.4) mg/dl PG Care Time/CCT Total # of Minutes Spent Total Time Spent with Patient: Total time spent is greater than 50% in coordination of care (as documented) at patient's floor/unit and/or counseling patient: Coding Level of Care Code 36707 Subseq Hosp Care Lvl 3 Diagnoses Bacteremia R78.81 Sepsis A41.9 Cellulitis L03.90 ATN (acute tubular necrosis) N17.0 Hypotension I95.9 Acute metabolic encephalopathy G93.41 Chronic obstructive pulmonary disease J44.9 Chronic systolic (congestive) heart failure I50.22 Atrial fibrillation I48.21 Atrial fibrillation type: permanent Elevated bilirubin R17 BPH with obstruction/lower urinary tract symptoms N40.1; N13.8 Elevated troponin R77.8 Hematuria R31.9 Cirrhosis K74.60 Candidiasis of mouth and esophagus B37.81; B37.0 Constipation K59.00 (1) Atrial fibrillation Atrial fibrillation type: permanent Qualified Code(s): I48.21 - Permanent atrial fibrillation
--- NOTE | 2022-01-13 14:27 | Infectious Disease Consult ---
Date of Consultation January 13, 2022 Assessment & Plan (1) Bacteremia: Plan #GNR bacteremia -identified as myroides by [facility] per discussion with hospitalist -environmental pathogen- likely portal of entry was presenting RLE cellulitis- history obtained by primary team of fishing/outdoor activities -noted immunocompromise likely in setting of underlying cirrhosis reported on abd u/s. -cellulitis has reportedly improved markedly- pt switched to doxy- now appears resolved -repeat Bcxs have been negative -pt received approx 11 days of zosyn Rec: At this time, pt has completed adequate course of abx for Myroides bacteremia. Would stop zosyn. Per discussion with Dr. Zabala, cellulitis also resolved so can stop doxycycline as well. Please reconsult if there are any further questions. Gayle Le M.D. [facility] Pager [phone] Consultation Information This patient recommendation is based on a telemedicine consult request which was completed asynchronously through chart review and information provided by the primary physician. The patient was not seen or examined today. The evaluation is consultative in nature and all patient care and treatment decisions can either be accepted or rejected by the patient's primary hospital-based treating physician using their own independent medical judgment for their patient. Hospice Entrance Attendant contact information: Please call ID Connect Call Center . (Phone Number For Physician Use Only) Time Spent Reviewing Chart: 21 - 30 minutes History of Present Illness Attending Physician: Mireya Zabala MD History of Present Illness ID consult requested for bacteremia in this 81-year-old male, past medical history of atrial fibrillation, COPD, hyperlipidemia, hypertension, NSTEMI, BPH, who presented to the ED on 01/03/2022 with right lower extremity cellulitis. Patient also reported confusion which began the night before, and generalized weakness. Patient's reported that he complained of chills the night prior. In the ED, temperature was 37, heart rate 97, respiratory rate 18, blood pressure 118/62, pulse ox 92% on 2 L nasal cannula. Admission labs significant for WBC 11, 83.2% neutrophils, creatinine 1.06. Portable chest x-ray with cardiomegaly and interstitial thickening which favors mild pulmonary edema. Ultrasound abdomen showed cirrhosis with mild ascites thickening of the gallbladder wall that was favored to be reactive. Patient was started on daptomycin for cellulitis along with Zosyn. A Mi was placed due to difficulty voiding on admission. He was noted to have hematuria subsequently and Eliquis was held. Hematuria then resolved. Gram- negative rods grew in admission blood cultures. Microbiology was unable to identify the organism and so culture was sent to reference lab on 01/10. It was noted that patient's right leg cellulitis improved significantly on Zosyn and daptomycin and so antibiotics were changed to doxycycline on 01/09. There is a scanned image of patient's leg on 01/10 which does not show any cellulitis. There is also an image from 01/12 which shows a superficial wound that is bleeding. Patient is currently on doxycycline as well as Zosyn. 01/03 blood cultures with gram-negative rods in 2 out of 2 sets. [facility] is reporting this is Myroides per discussion with the hospitalist. 01/05 blood cultures are negative. 01/05 urine culture from indwelling catheter no growth. There is a reported allergy to Keflex (hives). Patient has been afebrile and HDS. WBC normalized since 01/07. Creatinine has remained stable. Allergies Allergy/AdvReac Type Severity Reaction Status Date / Time cephalexin [From Keflex] Allergy Hives Unverified 01/10/22 15:27 Home Medications Medication Instructions Recorded Confirmed Type nebulizer accessories #1 ea 03/26/19 12/28/21 Rx nebulizers #1 ea 03/28/19 12/28/21 Rx multivitamin (Daily Multi-Vitamin 1 tab PO QAM 07/20/20 01/03/22 History tablet) atorvastatin 20 mg tablet 20 mg PO HS #90 tabs 12/25/20 01/03/22 Rx omeprazole 20 mg capsule,delayed 20 mg PO DAILY #90 caps 01/21/21 01/03/22 Rx release ipratropium 0.5 mg-albuterol 3 mg 3 ml inhalation QID PRN shortness 01/29/21 01/03/22 Rx (2.5 mg base)/3 mL nebulization of breath or wheezing #360 mL soln alfuzosin 10 mg tablet,extended 10 mg PO DAILY #90 tabs 07/13/21 01/03/22 Rx release 24 hr (Uroxatral) budesonide-formoterol HFA 160 2 puff inhalation BID #10.2 grams 09/27/21 01/03/22 Rx mcg-4.5 mcg/actuation aerosol inhaler (Symbicort) metoprolol succinate 100 mg 100 mg PO QPM 09/27/21 01/03/22 History tablet,extended release 24 hr Oxygen Home #2 L 10/14/21 12/28/21 Rx tiotropium bromide 2.5 2 puff inhalation DAILY #4 grams 10/15/21 01/03/22 Rx mcg/actuation mist for inhalation (Spiriva Respimat) apixaban 5 mg tablet (Eliquis) See Rx Instructions .Route 10/25/21 01/03/22 Rx .COMPLEX #180 tabs furosemide 40 mg tablet (Lasix) 40 mg PO DAILY 11/25/21 01/03/22 History albuterol sulfate 90 mcg/actuation 2 puff inhalation QID PRN 12/22/21 01/03/22 Rx aerosol inhaler (Ventolin HFA) shortness of breath or wheezing #18 grams Patient History Medical History Abnormal CT scan, chest Atrial fibrillation BPH with obstruction/lower urinary tract symptoms Chronic obstructive pulmonary disease Diverticulosis GERD (gastroesophageal reflux disease) Hernia, inguinal, left History of Mohs micrographic surgery for skin cancer Hyperlipidemia Hypertension NSTEMI (non-ST elevated myocardial infarction) SNHL (sensorineural hearing loss) Surgical History Fistula REPAIRED History of cardiac cath History of cardiac radiofrequency ablation 5-6 YEARS AGO ([facility] BY DR. 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) Family History Father Family hx colonic polyps Mother Heart disease Other Hypertension Social History Smoking Status: Former smoker Tobacco Type: Cigarettes Age Started Using Tobacco: 17; Age Quit Using Tobacco: 62; packs per day: 2; Years Smoked: 45; Cigarettes Per Day: 40; Second Hand Exposure: No; Hx Alcohol Use: Yes Alcohol type: beer Alcohol Intake Frequency: 2-3 x/Week Hx Substance Use: No Preferred Language: Turkish Communication Ability: Effective Visual Impairment: Limited Hearing Ability: Normal Casting Technician Required: No Beliefs That Will Affect Care: None marital status: Current Living Situation: Spouse current occupational status: retired Feels Safe at Home: Yes Childhood Exposure to Second-Hand Smoke: Yes caffeine: Yes Dental Care, Regularly: Yes Physical Activity Frequency: 1-2 Times per Week Physical Activity Frequency Comment: walks Seatbelt Use: always Sunscreen Use: Yes Do you think of yourself as: straight/heterosexual Assistive Devices: Nebulizer and Oxygen - at Night Results & Data ([facility]) Vital Signs (Past 12 Hours) Vital Signs Temp Pulse Resp BP Pulse Ox O2 Del Method O2 Flow Rate 01/13/22 11:06 36.5 C 58 L 19 108/61 95 Room Air 01/13/22 08:08 36.5 C 47 L 20 126/59 L 100 Nasal Cannula 2 01/13/22 07:14 46 L 18 100 Nasal Cannula 2 01/13/22 03:00 36.4 C L 51 L 20 133/61 100 Nasal Cannula 2 Laboratory Results 01/13/22 06:50 Sodium 140 Potassium 4.0 Chloride 104 Carbon Dioxide 33 H Anion Gap 3 BUN 17 Creatinine 0.86 Est Cr Clr Drug Dosing 74.2 Est GFR ( Amer) 95.6 Est GFR (Non-Af Amer) 82.5 BUN/Creatinine Ratio 19.8 Glucose 102 H Calcium 8.1 L Magnesium 1.7 Microbiology 01/05/22 09:58 Blood Aerobic Blood Culture - Final No growth in Aerobic bottle after 5 days. 01/05/22 09:58 Blood Anaerobic Blood Culture - Final 01/05/22 09:51 Blood Aerobic Blood Culture - Final No growth in Aerobic bottle after 5 days. 01/05/22 09:51 Blood Anaerobic Blood Culture - Final No growth in Anaerobic bottle after 5 days. 01/03/22 12:52 Blood Aerobic Blood Culture - Preliminary Gram negative bacilli 01/03/22 12:52 Blood Anaerobic Blood Culture - Final No growth in Anaerobic bottle after 5 days. 01/03/22 13:02 Blood Aerobic Blood Culture - Preliminary Gram negative bacilli 01/03/22 13:02 Blood Anaerobic Blood Culture - Final No growth in Anaerobic bottle after 5 days. 01/05/22 12:10 Urine,Indwelling Cath Urine Culture - Final No growth - less than 1,000 colonies/mL. Medications Administered Current Medications Acetaminophen (Acetaminophen 325 Mg Tab) 650 mg PO Q4H PRN PRN Reason: Pain or Fever Stop: 02/02/22 18:14 Al Hydrox/Mg Hydrox/Simethicone (Aluminum/Magnesium Susp 30 Ml Udc) 15 ml PO Q4H PRN PRN Reason: Dyspepsia Stop: 02/02/22 18:14 Albuterol (Albut/Ipratrop 3mg/0.5mg Neb 3 Ml Vial) 3 ml INH BIDR [facility], 1928–1983; Protocol Stop: 02/06/22 18:59 Last Admin: 01/13/22 07:13 Dose: 3 ml Alfuzosin HCl (Alfuzosin Hcl 10 Mg Tab) 10 mg PO QAM [facility]1983 Stop: 02/08/22 08:59 Last Admin: 01/13/22 07:32 Dose: 10 mg Apixaban (Apixaban 5 Mg Tablet) 5 mg PO BID FABIANA Stop: 02/02/22 20:59 Last Admin: 01/13/22 07:32 Dose: 5 mg Atorvastatin Calcium (Atorvastatin 20 Mg Tab) 20 mg PO HS FABIANA Stop: 02/02/22 20:59 Last Admin: 01/12/22 20:14 Dose: 20 mg Doxycycline Hyclate (Doxycycline Hyclate 100 Mg Cap) 100 mg PO BID [facility]1983 Stop: 01/15/22 08:59 Last Admin: 01/13/22 07:31 Dose: 100 mg Fluticasone/Vilanterol (Fluticasone/Vilanterol 200/25mcg 14 Puffs/Inhaler) 1 puffs INH DAILY FABIANA Stop: 02/03/22 08:59 Last Admin: 01/13/22 07:35 Dose: 1 puffs Furosemide (Furosemide 40 Mg Tab) 40 mg PO QAM [facility]1983 Stop: 02/09/22 08:59 Last Admin: 01/13/22 07:32 Dose: 40 mg Piperacillin Sod/Tazobactam (Sod 3.375 gm/ Dextrose) 115 mls @ 28.75 mls/hr IV Q8H FABIANA; Protocol Stop: 01/19/22 01:59 Last Infusion: 01/13/22 13:17 Dose: Infused Magnesium Sulfate/Dextrose (Magnesium Sulfate / D5w) 1 gm in 100 mls @ 50 mls/hr IV Q2H FABIANA Stop: 01/13/22 14:29 Last Admin: 01/13/22 12:41 Dose: 50 mls/hr Lactobacillus Acidophilus (Advanced Probiotic 1250 Mg Capsule) 2 cap PO DAILY FABIANA Stop: 02/09/22 08:59 Last Admin: 01/13/22 07:32 Dose: 2 cap Magnesium Oxide (Magnesium Oxide 400 Mg Tab) 400 mg PO QAM FAB[facility]NA Stop: 02/13/22 08:59 Metoprolol Succinate (Metoprolol Succ 50mg Ext Rel Tab) 50 mg PO QAM FABIANA Stop: 02/12/22 08:59 Last Admin: 01/13/22 07:53 Dose: 50 mg Multivitamins (Multivitamin Tab) 1 tab PO QAM FABIANA Stop: 02/03/22 08:59 Last Admin: 01/13/22 07:32 Dose: 1 tab Ondansetron HCl (Ondansetron Inj 2 Mg/Ml 2 Ml Vial) 4 mg IV Q6H PRN PRN Reason: Nausea Stop: 02/02/22 18:14 Pantoprazole Sodium (Pantoprazole 40 Mg Tab) 40 mg PO DAILY FABIANA Stop: 02/03/22 08:59 Last Admin: 01/13/22 07:32 Dose: 40 mg Polyethylene Glycol (Polyethylene (Miralax) 17 Gm Pack) 17 gm PO BID FABIANA Stop: 02/08/22 21:14 Last Admin: 01/13/22 07:36 Dose: 17 gm Sacubitril/Valsartan (Valsartan/Sacubitril 26/24mg Tab) 1 tab PO BID FABIANA Stop: 02/11/22 20:59 Last Admin: 01/13/22 07:34 Dose: 1 tab Sennosides (Senna 8.6 Mg Tab) 17.2 mg PO HS FABIANA Stop: 02/08/22 21:04 Last Admin: 01/13/22 07:32 Dose: 17.2 mg Spironolactone (Spironolactone 12.5 Mg Tab) 12.5 mg PO DAILY FABIANA Stop: 02/12/22 08:59 Last Admin: 01/13/22 07:34 Dose: 12.5 mg Umeclidinium [place] (Umeclidinium [place] 62.5mcg/Blister 7 Puffs/Inhaler) 1 puffs INH DAILY FABIANA Stop: 02/03/22 08:59 Last Admin: 01/13/22 07:35 Dose: 1 puffs
[2022-01-13] MEDS: ATORVASTATIN 20 MG TAB PO SCH (20:32)
[2022-01-14 06:26] LABS: Albumin Globulin Ratio 2.1 (0.9-2); Albumin Level 3.1 gm/dl (3.4-5.0); BUN Creatinine Ratio 18.1 (10-20); Bilirubin,Total 0.9 mg/dl (0.2-1.0); Calcium 8.4 mg/dl (8.5-10.1); Creatinine Clr Calc Pharmacy 67.9 ml/min; Est GFR (Non-African American) 76.8 ml/min; Globulin 1.5 gm/dl (2.5-4.0); Magnesium 2.1 mg/dl (1.7-2.4); Total Protein 4.6 gm/dl (6.0-8.3)
[2022-01-14] MEDS: ALBUT/IPRATROP 3MG/0.5MG NEB 3 ML VIAL INH SCH (06:59)
[2022-01-14] MEDS: SPIRONOLACTONE 12.5 MG TAB PO SCH (07:29)
[2022-01-14] MEDS: MULTIVITAMIN TAB PO SCH (07:29)
[2022-01-14] MEDS: VALSARTAN/SACUBITRIL 26/24MG TAB PO SCH (07:29)
[2022-01-14] MEDS: ADVANCED PROBIOTIC 1250 MG CAPSULE PO SCH (07:29)
[2022-01-14] MEDS: APIXABAN 5 MG TABLET PO SCH (07:29)
[2022-01-14] MEDS: ALFUZOSIN HCL 10 MG TAB PO SCH (07:30)
[2022-01-14] MEDS: FUROSEMIDE 40 MG TAB PO SCH (07:30)
[2022-01-14] MEDS: SENNA 8.6 MG TAB PO SCH (07:30)
[2022-01-14] MEDS: PANTOprazole 40 MG TAB PO SCH (07:30)
[2022-01-14] MEDS: UMECLIDINIUM BROMIDE 62.5MCG/BLISTER 7 PUFFS/INHALER INH SCH (07:31)
[2022-01-14] MEDS: METOPROLOL SUCC 50MG EXT REL TAB PO SCH (07:31)
[2022-01-14] MEDS: FLUTICASONE/VILANTEROL 200/25MCG 14 PUFFS/INHALER INH SCH (07:32)
[2022-01-14] MEDS: POLYETHYLENE (MIRALAX) 17 GM PACK PO SCH (07:45)
[2022-01-14] MEDS ORDERED: MAGNESIUM OXIDE 400 MG TAB PO SCH (09:00)
--- NOTE | 2022-01-14 14:47 | Discharge Summary ---
Date of Service January 14, 2022 Admission HPI Per Admitting Provider 81year old male who presents to the Emergency Room with complaints of confusion and right leg swelling/redness. This started last night and is fluctuating. notes that he was seeing things that were inappropriate and did complain of chills last night. The patient also complains of generalized weakness, swelling of the lower extremities which is worse than chronic, some mild shortness of breath which is worse than chronic as well. Patient has a history of A. fib and is anticoagulated. He also has a history of CKD3.. Presentation the patient's biggest complaint is shortness of breath. His says he has had production of sputum although the patient states it is clear. Patient states he feels dyspneic on exertion without exertional chest pain and this is worse than usual. Principal Diagnosis Sepsis, Myroides ceti bacteremia, right leg cellulitis Bradycardia Discharge Exam gen - nontoxic, NAD, AAOx3 mouth - MMM heart - irregular, s1 s2, regular rate; 1/6 systolic murmur LSB lungs - CTAB,no wcr, no increased work of breathing abd - BS+; NT; no HSM, soft ext - 2+ edema RLE, 1+ edema LLE; pulses 2+ b/l, cap refill < 2 sec skin - extensive ecchymoses on arms unchanged; cellulitis of right valdes resolved; small ulceration near R calf unchanged; left anterior thigh with large skin tear, dressing soaked with blood Discharge Data Allergies Allergy/AdvReac Type Severity Reaction Status Date / Time cephalexin [From Keflex] Allergy Hives Unverified 01/10/22 15:27 Consultations 01/03/22 13:34 ED Decision to Admit Stat 01/11/22 16:43 Consult Cardiology Routine 01/13/22 10:19 [facility] Referral Routine 01/13/22 13:18 Consult Infectious Diseases Routine Ordered Studies 01/04/22 US liver Routine Hospital Course (1) Bacteremia: clinically resolved. admission blood cultures from 01/04 with gram negative rods--> sent to [facility] for further ID and prelim report is Myroides ceti, sensitivities pending at time of discharge but clinically improved. repeat blood cultures 01/05/22 - negative. 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 suspected source - RLE cellulitis. urine unlikely source (and culture negative). gall bladder was normal on RUQ u/s - no signs of cholecystitis. No abd pains, no signs of SBP and has only mild ascites on US serial cxrs without discrete pneumonia. -he received 10 days now of zosyn -placed ID consult-appreciate recommendations - since infection has cleared from blood and leg cellulitis is resolved, all antibiotics can be stopped (2) Sepsis: present on admission - severe sepsis -- with associated ATN, lactic acidosis, hypotension, etc. sepsis resolved. presumed 2nd to RLE cellulitis. see above. (3) Cellulitis: RLE. resolved. resolved very nicely with zosyn + daptomycin --> now doxy in lieu of daptomycin. supportive care. elevate leg and treat peripheral edema with addition of aldactone cont gentle compression due to edema - tubigrip stocking ordered by wound care nurse -consider venous reflux workup as outpt but suspect peripheral edema all from right sided heart failure -added on aldactone for diuretic (4) ATN (acute tubular necrosis): sepsis-associated ATN. resolved. (5) Hypotension: present on admission. 2nd to severe sepsis - resolved. beta dillan resumed diuretics resumed. alpha dillan for BPH resumed. added on Entresto and aldactone-watch BP-stable so far (6) Acute metabolic encephalopathy: 2nd sepsis - resolved (7) Chronic obstructive pulmonary disease: with possible mild exacerbation s/p IV solumedrol in ER at time of presentation treated with burst of prednisone admission cxr with ? infiltrates - repeat cxr 01/07/22 without pneumonia cont albuterol nebs cont Umeclidinium [place] cont Fluticasone/vilanterol (8) Chronic systolic (congestive) heart failure: EF 40-45% based on records, with moderate RV dysfunction patient was intravascularly volume contracted in the setting of sepsis and poor po intake at time of admission s/p saline boluses now euvolemic or slightly volume up resumed lasix on 01/07-initially IV, now back to PO Appreciate Cardiology consult-agrees with adding aldactone due to ascites from his cirrhosis as well as for CHF-added 25mg daily -was off lisinopril now for many days--> started Entresto low dose bid lowest dose -converted back to Toprol XL at lower dose of 50mg daily (home dose 100mg but having bradycardia) -consider adding on Jardiance as outpt (9) Atrial fibrillation: patient typically takes metoprolol succinate 100mg daily this had been held due to hypotension early in his stay -resumed the metoprolol at 25mg BID and with this lower dose he is having significant bradycardia with rates in the 30s/40s with sleep and 3 second pauses that are asymptomatic early in the stay he had significant tachycardia when off beta dillan Appreciate Cardiology consult-not concerning, no need for pacer continue eliquis -now on Toprol XL 50mg daily and tolerating -replaced magnesium and add po Mag daily f/u with Cardiology as outpt (10) Elevated bilirubin: 2019 the patient had severe cholecystitis which was treated with cholecystostomy tube and not cholecystectomy. The patient recovered from that episode. u/s of liver here with cirrhosis but no acute cholecystitis findings , with mild ascites no abd pain cirrhosis - cardiac in etiology? TANNER? LFTs are stable f/u with GI as otupt 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: schreiber placed 01/04 developed hematuria with schreiber placement did not have hematuria prior to the schreiber suspect bleeding/hematuria was from prostatic irritation in the setting of Eliquis use MRI abdomen without urinary tract pathology in October 2021 - no kidneys stones, etc Eliquis was held, and HEMATURIA resolved H/H remain stable dcd Schreiber and passed TOV 01/12 Unfortunately, suffered accidental skin tear on left anterior thigh after pulling off tape from Schreiber securement site-continue wound care at wound care clinic after discharge and daily dressing changes (12) Elevated troponin: no evidence of ACS this is likely myocardial demand ischemia in setting of sepsis (13) Hematuria: see above (14) Cirrhosis: as seen on u/s prior CT a/p in 2019 with early cirrhosis changes etiology? TANNER? 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-needs repeat MRI 6 months from the last (15) Candidiasis of mouth and esophagus: resolved with po nystatin (16) Constipation: finally resolved received miralax and senna for bowel maintenance Plan cont PT/OT - improving, can go home with home health today Total Time Total Time Spent Total Time Spent (In Minutes): 40 min Discharge Plan Discharge Items Patient Disposition: Home - Home Health Services Reason For Visit: CELLULITIS Discharge Diagnosis: Leg cellulitis, Myroides ceti bacteremia Sepsis Bradycardia Condition on Discharge: Good Activity: As commented below Bathing: No limitations Exercise/Sports: Gradually increase as tolerated Weightbearing: Full weightbearing Non-emergency contact: Primary Care Provider and Complaint Adjuster Call non-emergency contact if: you have any medication questions, your symptoms worsen, you have a fever, your wound has increased redness, your wound has increased drainage and your wound pain has increased Follow-up/Referrals: [facility] [Outside] - 01/19/22 8:00 am (Please see Dr. Buchanan at the Wound [facility].) Katelynn Miranda PA-C [Physician [employer]er] - (Ms. Miranda will contact you with your appointment date and time.) Juan Ramos DO [Primary Care Provider] - 01/21/22 3:00 pm Diet: Heart Healthy and Low Sodium (2gm) Fluids: 1500ml (6 cups) Addtl Attending Provider Instructions: You were admitted for an infection in your leg that spread to your blood stream. This caused you to be very ill with sepsis. You have recovered and finished out all of the antibiotics needed. For your congestive heart failure, you had some medications added to help with swelling and improve the function of your heart. A referral was made for you to the CHF clinic at [facility]. Ms. Katelynn Miranda will be in touch with you about an appointment date and time. Your metoprolol dose was lowered due to your heart rate being too low at night. Unfortunately, you suffered a skin tear on your left thigh. Please continue the daily dressing changes as directed and follow up with the Wound Care [facility] as scheduled for you. Addtl Doctor Of Radiology Provider Instructions: Call your Primary Care doctor if any of the following symptoms or problems start or get worse: * Shortness of breath or difficulty breathing * Wake up at night short of breath * Chest pain * Cough * Swelling of your hands, feet, or legs * More fatigued or tired with your normal activity * Palpitations - sudden fast heart beats WEIGHT * Weigh yourself every morning after using the bathroom. * Use the same scale. * Wear the same amount of clothing. * Write your weight down on a chart. * Call your Primary Care doctor if you gain more than 2-3 pounds in 1-2 days. MEDICATIONS * Use this discharge instruction sheet for medication instructions. * Take your medications at the time your doctor ordered. * Do not skip a dose of your medicines. * If you miss a dose of medicine, take it as soon as possible, but DO NOT DOUBLE A DOSE. * Read your medicine information when you get home. * Know all of the side effects of your medicine. If in doubt, ask your pharmacist * Call your Primary Care doctor's office if you have any side effects. * Be sure all of your doctors know what medicine and herbs you take (including cold, flu, and herbal medicine). Take the following with you to your follow-up doctor appointments: * Weight Chart * Medication List * List of questions Do not drink excessive alcohol, beer or wine. Pending Studies at Discharge: Yes Studies:: final blood culture result Stand-Alone Forms: My [facility], Smoking Cessation Medications and DC Order Prescriptions: New metoprolol succinate 50 mg Tablet Extended Release 24 Hr 50 mg PO QAM Qty: 30 0RF spironolactone 25 mg Tablet 25 mg PO DAILY Qty: 30 0RF magnesium oxide 400 mg (241.3 mg magnesium) Tablet 400 mg PO QAM Qty: 30 0RF Rx Instructions: OTC Entresto 24-26 mg Tablet 1 tab PO BID Qty: 60 0RF Continued (DME) nebulizer accessories kit See Rx Instructions .ROUTE .MEDSUPPLY Qty: 1 0RF Rx Instructions: As directed. This is to be lifelong order. (DME) nebulizers [facility] [place] See Rx Instructions [id number] .MEDSUPPLY Qty: 1 0RF Rx Instructions: As directed. Lifetime need atorvastatin 20 mg tablet 20 mg PO HS Qty: 90 3RF omeprazole 20 mg capsule,delayed release(DR/EC) 20 mg PO DAILY Qty: 90 3RF ipratropium-albuterol 0.5 mg-3 mg(2.5 mg base)/3 mL solution for nebulization 3 ml inhalation QID PRN (Reason: shortness of breath or wheezing) Qty: 360 5RF alfuzosin [Uroxatral] 10 mg tablet extended release 24 hr 10 mg PO DAILY Qty: 90 3RF Rx Instructions: administer after the same meal each day Symbicort 160-4.5 mcg/actuation HFA aerosol inhaler 2 puff INHALATION BID Qty: 10.2 5RF Hold Instructions: Med change Spiriva Respimat 2.5 mcg/actuation mist 2 puff INH DAILY Qty: 4 5RF Hold Instructions: Med change Eliquis 5 mg tablet See Rx Instructions .ROUTE .COMPLEX Qty: 180 3RF Dose Instruction: TAKE 1 TABLET BY MOUTH TWICE A DAY Rx Instructions: TAKE 1 TABLET BY MOUTH TWICE A DAY albuterol sulfate [Ventolin HFA] 90 mcg/actuation HFA aerosol inhaler 2 puff inhalation QID PRN (Reason: shortness of breath or wheezing) Qty: 18 5RF multivitamin [Daily Multi-Vitamin] Tablet 1 tab PO QAM (DME) Oxygen Home Liters Per Minute See Rx Instructions .ROUTE .MEDSUPPLY Qty: 2 0RF Rx Instructions: 2 L/min via nasal cannula to be used with exertion and at night when sleeping furosemide [Lasix] 40 mg tablet 40 mg PO DAILY Qty: 30 0RF Rx Instructions: additional 40mg PRN edema Discontinued metoprolol succinate 100 mg tablet extended release 24 hr 100 mg PO QPM Discharge Orders: Discharge Order (Routine); Ordered 01/14/22 Ordered By: Mireya Zabala Admission Data Admit Date/Time: 01/03/22 13:42 Attending Provider: Mireya Zabala Admit Provider: Jared Fraser Primary Care Provider: Juan Ramos Other Providers: Jared Fraser ; [place] ; Kodak Mann ; Katelynn Miranda ; Yajaira Leigh ; Quinn Pendleton ; Kimberlee Green ; Saurabh Bah ; Gayle Le ; Cat Hawley ; Vero Quigley ; Luis Antonio Chew ; Sangeetha Garzon Coding Level of Care Code D/C DAY MANAGEMENT >30 MINS Diagnoses Bacteremia R78.81 Sepsis A41.9 Cellulitis L03.90 ATN (acute tubular necrosis) N17.0 Hypotension I95.9 Acute metabolic encephalopathy G93.41 Chronic obstructive pulmonary disease J44.9 Chronic systolic (congestive) heart failure I50.22 Atrial fibrillation I48.21 Atrial fibrillation type: permanent Elevated bilirubin R17 BPH with obstruction/lower urinary tract symptoms N40.1; N13.8 Elevated troponin R77.8 Hematuria R31.9 Cirrhosis K74.60 Candidiasis of mouth and esophagus B37.81; B37.0 Constipation K59.00
== END 2022-01-14 17:18 | disposition home health service (06) | DRG 871 ==
LOC: ED 11:24 → 2W 13:42 → SUATTDRO 13:42 → 2W 17:49

== ENCOUNTER 2023-03-20 14:50 | Inpatient (IN) ==
--- NOTE | 2023-03-20 15:42 | Emergency Department Note ---
Impression & Plan Acute dyspnea, RSV infection, Generalized weakness, Elevated brain natriuretic peptide (BNP) level ED Provider Note HISTORY OF PRESENT ILLNESS: Patient is an 82-year-old male presenting with shortness of breath. Patient reports that he has been having progressively worsening shortness of breath over the last 4 days. He has been wearing 2 L nasal cannula continuously over the weekend. He was treated for pneumonia over a week and a half ago with Augmentin. He has been off of the antibiotic for the last 10 days. He denies any chest pain. Reports that he has had decreased appetite and has lost some significant amounts of weight over the last 4 days. Denies any fevers. He reports a cough productive of white sputum. Denies any abdominal pain, nausea or vomiting. He reports that his symptoms worsened this weekend but he was trying to tough it out at home. Denies any significant lower extremity swelling. Patient denies any history of cardiac stents. Denies any DVT or PE history. He is on Eliquis for history of A-fib. ROS: as above PHYSICAL EXAM: Constitutional: Patient appears in no acute distress. HENT: Head: Normocephalic and atraumatic. Eyes: EOMI, PERRL Mouth/Throat: Mucous membranes moist. Neck: Trachea midline. Neck supple. Cardiovascular: RRR, No murmurs, rubs or gallops. Intact distal pulses. Pulmonary/Chest: On 2 L nasal cannula. Sats of 90%. Coarse breath sounds bilaterally. Abdominal: Abdomen soft, no tenderness, rebound or guarding. Musculoskeletal: No edema, tenderness or deformity noted. Skin: Warm and dry. No rash, erythema, pallor or cyanosis Psychiatric: Appropriate mood and affect for situation. Neurological: Alert and keenly responsive. CN II-XII grossly intact, moving all extremities equally and fully. MDM: - Vitals signs showed hypotension. - History obtained via patient. Patient presents with shortness of breath. Patient reports progressively worsening shortness of breath over the last 4 days. He states that he normally wears 2 L as needed at nighttime but has been wearing it continuously over the weekend. Reports a cough productive of white sputum. Denies any fevers. Denies any chest pain. Denies any DVT or PE history. He is on Eliquis for history of A-fib. He completed a course of antibiotics 10 days ago for pneumonia. Denies any recent sick contact exposures. - Chronic conditions affecting care: HTN; HLD; GERD; COPD - Differential diagnoses include, but are not limited to: Congestive heart failure; acute coronary syndrome; COPD/asthma exacerbation; pulmonary edema; pulmonary embolism; pneumonia; pneumothorax; viral syndrome - Order placed for continuous cardiac monitoring. At this time, monitor showed rate of 95 bpm with normal sinus rhythm, per my interpretation. - External medical records reviewed. Heart failure clinic visit dated 06/28/2022 was reviewed. Patient has a history of chronic systolic heart failure. He is on 25 mg spironolactone daily. - EKG reviewed by myself showed normal sinus rhythm. Rate 97 bpm. QTc 482. No acute ischemic changes. - Laboratory workup interpreted by myself showed leukocytosis (WBC 12.09) with left shift; hyponatremia (Na 131); elevated lactate (2.1); normal creatinine; normal troponin; elevated BNP (235); normal procalcitonin - Blood cultures obtained - CXR negative for pneumonia, per my interpretation - Patient empirically given 2g IV cefepime. - Viral panel positive for RSV. - Patient only given 1L NS, instead of the 2345 mL per ideal body weight sepsis fluid resuscitation, as concern for possible heart failure. - Discussed results with the patient and his family at bedside. Patient expresses concern about potentially going home given his generalized weakness and feeling unwell. - Discussion was had with health care / medical job titles about patient's case and need for admission - Hospitalist consulted for admission - Patient admitted to [facility] Hospitalist service for further evaluation and management. 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 Recommend 1 year follow up. Heart failure with mid-range ejection fraction Bradycardia Hematuria Chronic obstructive pulmonary disease History of tobacco use BPH with obstruction/lower urinary tract symptoms Diverticulosis SNHL (sensorineural hearing loss) Seasonal allergies Tinnitus GERD (gastroesophageal reflux disease) Atrial fibrillation Hypertension Hyperlipidemia Surgical History (Updated 11/16/22 @ 09:36 by Juan Ramos DO) Hx of amputation of lesser toe (~07/2022) Osteomyelitis H/O mitral valve replacement 2016 Status post Mohs surgery left cheek, left arm (squamous cell) Status post anal fissurectomy History of colonoscopy History of tooth extraction History of tonsillectomy History of cardiac radiofrequency ablation History of cardiac cath 03/2015 > no stents Family History Father Family hx colonic polyps Mother Heart disease Other Hypertension No family history of adverse response to anesthesia Social History Smoking Status: Former smoker Tobacco Type: Cigarettes Age Started Using Tobacco: 17; Age Quit Using Tobacco: 62; packs per day: 2; Cigarettes Per Day: 40; Second Hand Exposure: No; Do You Dip or Chew Tobacco: No; Hx Alcohol Use: Yes Alcohol type: beer Alcohol Intake Frequency: 2-3 x/Week Hx Substance Use: No Preferred Language: Japanese Communication Ability: Effective Visual Impairment: Limited Hearing Ability: Normal Soils Analyst Required: No Beliefs That Will Affect Care: None marital status: Current Living Situation: Spouse current occupational status: retired Feels Safe at Home: Yes Childhood Exposure to Second-Hand Smoke: Yes Diet: regular Diet Comment: Educated to increase protein, vitamin c d and zinc caffeine: Yes during the past year weight has: decreased > 10 lbs Dental Care, Regularly: Yes Physical Activity Frequency: 1-2 Times per Week Physical Activity Frequency Comment: walks Seatbelt Use: always Sunscreen Use: Yes Do you think of yourself as: straight/heterosexual Assistive Devices: Denture - Upper, Nebulizer and Oxygen - at Night Allergies Allergies Allergy/AdvReac Type Severity Reaction Status Date / Time cephalexin [From Keflex] Allergy Hives Verified 03/20/23 19:08 Home Meds Home Medications Medication Instructions Recorded Confirmed multivitamin (Daily Multi-Vitamin 1 tab PO QAM 07/20/20 03/20/23 tablet) alfuzosin 10 mg tablet,extended 10 mg PO QPM 07/11/22 03/20/23 release 24 hr (Uroxatral) omeprazole 20 mg capsule,delayed 20 mg PO QAM 07/11/22 03/20/23 release spironolactone 25 mg tablet 25 mg PO QAM 07/11/22 03/20/23 apixaban 5 mg tablet (Eliquis) 5 mg PO BID 03/20/23 03/20/23 Previous Rx's Medication Instructions Recorded Oxygen Home #2 L 10/14/21 magnesium oxide 400 mg (241.3 mg 400 mg PO QAM #30 tabs 01/14/22 magnesium) tablet sacubitril 24 mg-valsartan 26 mg 1 tab PO BID #180 tabs 05/16/22 tablet (Entresto) metoprolol succinate 25 mg 12.5 mg (1/2 x 25 mg) PO QAM #45 09/26/22 tablet,extended release 24 hr tabs budesonide-formoterol HFA 160 2 puff inhalation BID #3 Inhalers 09/27/22 mcg-4.5 mcg/actuation aerosol inhaler (Symbicort) tiotropium bromide 2.5 2 puff inhalation QAM #3 Inhalers 10/05/22 mcg/actuation mist for inhalation (Spiriva Respimat) furosemide 40 mg tablet 40 mg PO DAILY PRN weight gain #90 01/12/23 tabs albuterol sulfate 90 mcg/actuation 2 puff inhalation QID PRN 02/07/23 aerosol inhaler (Ventolin HFA) shortness of breath or wheezing #18 grams atorvastatin 20 mg tablet 20 mg PO HS #90 tabs 03/08/23 Results & Data (ED) Vital Signs Vital Signs - 24 hr 03/20/23 15:23 03/20/23 15:40 03/20/23 15:41 Temperature 36.6 C Temperature Source Oral Pulse Rate 98 H Pulse Rate [Apical] Pulse Rhythm [Apical] Pulse Strength [Apical] Respiratory Rate 16 Respiratory Effort / Characteristics Respiratory Depth Respiratory Pattern Blood Pressure 74/30 L Blood Pressure [Right Arm] Blood Pressure Mean 44 Blood Pressure Mean [Right Arm] Blood Pressure Position [Right Arm] Pulse Oximetry 90 84 L Oxygen Delivery Method Nasal Cannula Room Air Nasal Cannula Oxygen Flow Rate 2 2 Sepsis Recent Fever Within 48 Hours No Sepsis New/Unexplained Change in Mental Status N/A Sepsis Action Taken by Nursing No Action Required 03/20/23 15:41 03/20/23 16:46 03/20/23 17:31 Temperature Temperature Source Pulse Rate 95 H Pulse Rate [Apical] 92 H 95 H Pulse Rhythm [Apical] Regular Regular Pulse Strength [Apical] Normal Normal Respiratory Rate 19 16 Respiratory Effort / Characteristics Non-Labored Spontaneous Non-Labored Spontaneous Respiratory Depth Normal Normal Respiratory Pattern Regular Blood Pressure Blood Pressure [Right Arm] 111/57 L 111/64 Blood Pressure Mean Blood Pressure Mean [Right Arm] 75 79 Blood Pressure Position [Right Arm] Semi-fowlers Semi-fowlers Pulse Oximetry 99 99 Oxygen Delivery Method Room Air Room Air Oxygen Flow Rate Sepsis Recent Fever Within 48 Hours Sepsis New/Unexplained Change in Mental Status Sepsis Action Taken by Nursing Laboratory Data 03/20/23 15:50 03/20/23 15:50 Lab Results 03/20/23 03/20/23 03/20/23 Range/Units 15:50 15:55 17:47 WBC 12.09 H (4.8-10.8) K/ul RBC 3.92 L (4.70-6.10) M/uL Hgb 12.0 L (14.0-18.0) g/dl Hct 36.4 L (42.0-52.0) % MCV 92.9 (80.0-100.0) fL MCH 30.6 (25.0-34.0) pg MCHC 33.0 (32.0-36.0) g/dL RDW Std Deviation 42.9 (36.4-46.3) fL RDW Coeff of Kamron 12.5 (11.5-14.5) % Plt Count 213 (130-400) K/uL MPV 11.4 (9.4-12.4) fL Immature Gran % (Auto) 0.4 % Neut % (Auto) 78.1 % Lymph % (Auto) 8.0 % Bland % (Auto) 12.5 % Eos % (Auto) 0.7 % Baso % (Auto) 0.3 % Neut # (Auto) 9.43 H (1.40-6.50) K/uL Lymph # (Auto) 0.97 L (1.20-3.40) K/uL Bland # (Auto) 1.51 H (0.11-0.59) K/uL Eos # (Auto) 0.09 (0.00-0.50) K/uL Baso # (Auto) 0.04 (0.00-0.20) K/uL Immature Gran # (Auto) 0.05 (0.01-0.20) K/uL PT 12.7 H (9.0-12.0) Seconds INR 1.2 H (0.9-1.1) APTT 39 H (21-31) Seconds PTT Ratio 1.4 Sodium 131 L (136-145) mmol/L Potassium 4.9 (3.5-5.1) mmol/L Chloride 95 L (98-107) mmol/L Carbon Dioxide 29 (21-32) mmol/L Anion Gap 7 (3-11) BUN 20 (6-23) mg/dl Creatinine 1.01 (0.6-1.4) mg/dl Est Cr Clr Drug Dosing 58.1 ml/min Est GFR ( Amer) 81.0 ml/min Est GFR (Non-Af Amer) 69.9 ml/min BUN/Creatinine Ratio 19.8 (10-20) Glucose 116 H (70-99(Fasting)) mg/dl Lactate 2.1 H* 1.0 (0.4-2.0) mmol/L Calcium 9.0 (8.6-10.3) mg/dl Magnesium 1.8 (1.7-2.4) mg/dl Total Bilirubin 1.3 H (0.2-1.0) mg/dl AST 21 (13-39) U/L ALT 12 (7-52) U/L Alkaline Phosphatase 105 H (34-104) U/L Troponin I High Sens 16.1 (0-20) pg/ml B-Natriuretic Peptide 235 H (0-100) pg/ml Total Protein 6.6 (6.0-8.3) gm/dl Albumin 3.5 (3.4-5.0) gm/dl Globulin 3.1 (2.5-4.0) gm/dl Albumin/Globulin Ratio 1.1 (0.9-2) Procalcitonin < 0.05 (0-0.5) ng/ml SARS-CoV-2 (PCR) NEGATIVE (Negative) Influenza Type A (PCR) Negative (Neg) Influenza Type B (PCR) Negative (Neg) RSV (RT-PCR) Positive A* (Neg) Administered Medications Discontinued Medications Sodium Chloride (Nss) 1,000 mls @ 999 mls/hr IV .Q1H1M FABIANA Stop: 03/20/23 17:45 Last Infusion: 03/20/23 18:01 Dose: Infused Documented By: Admin: 03/20/23 16:59 Dose: 999 mls/hr Documented By: Infusion: 03/20/23 16:53 Dose: Infused Documented By: Infusion: 03/20/23 16:02 Dose: 999 mls/hr Documented By: Admin: 03/20/23 15:52 Dose: 999 mls/hr Documented By: PRINCESS Imaging Data Radiologist's Impression: Chest X-Ray 03/20/23 15:28 XR chest 1V not portable HISTORY: 82 years-old Male worsening shortness of breath acute shortness of breath COMPARISON: 02/16/2023 TECHNIQUE: AP view of the chest FINDINGS: Cardiac silhouette is enlarged. Cardiac valvular prosthesis. No pneumothorax, large pleural effusion or overt pulmonary edema. Chronic interstitial coarsening with unchanged blunting of the right greater than left costophrenic angles. Emphysema. Bones appear grossly intact. IMPRESSION: 1. No acute processes of the chest. 2. Emphysema with chronic interstitial coarsening of the lung bases. ACT 112: Negative or not required by law. The above report was generated using voice recognition software. It may contain grammatical, syntax or spelling errors. Electronically signed by: Bharat Garrett M.D. 03/20/2023 4:29 PM Discharge Plan Visit Data Chief Complaint: Illness Stated Complaint: TREATED FOR Pneumonia BAD COUGH ED Provider: Katelyn Arreola Discharge Problem: Acute dyspnea, RSV infection, Generalized weakness, Elevated brain natriuretic peptide (BNP) level Forms Stand Alone Forms: My [employer] Prescriptions Prescriptions: No Action metoprolol succinate 25 mg tablet extended release 24 hr 12.5 mg PO QAM Qty: 45 3RF Symbicort 160-4.5 mcg/actuation HFA aerosol inhaler 2 puff INHALATION BID Qty: 3 3RF Hold Instructions: Med change Spiriva Respimat 2.5 mcg/actuation mist 2 puff INH QAM Qty: 3 3RF furosemide 40 mg tablet 40 mg PO DAILY PRN (Reason: weight gain) Qty: 90 1RF albuterol sulfate [Ventolin HFA] 90 mcg/actuation HFA aerosol inhaler 2 puff inhalation QID PRN (Reason: shortness of breath or wheezing) Qty: 18 5RF atorvastatin 20 mg tablet 20 mg PO HS Qty: 90 3RF multivitamin [Daily Multi-Vitamin] Tablet 1 tab PO QAM Entresto 24-26 mg tablet 1 tab PO BID Qty: 180 3RF (DME) Oxygen Home Liters Per Minute See Rx Instructions .ROUTE .MEDSUPPLY Qty: 2 0RF Rx Instructions: 2 L/min via nasal cannula to be used with exertion and at night when sleeping spironolactone 25 mg tablet 25 mg PO QAM omeprazole 20 mg capsule,delayed release(DR/EC) 20 mg PO QAM alfuzosin [Uroxatral] 10 mg tablet extended release 24 hr 10 mg PO QPM Rx Instructions: administer after the same meal each day magnesium oxide 400 mg (241.3 mg magnesium) Tablet 400 mg PO QAM Qty: 30 0RF Rx Instructions: OTC Eliquis 5 mg tablet 5 mg PO BID Rx Instructions: TAKE 1 TABLET BY MOUTH TWICE A DAY Referrals Referrals: Juan Ramos DO [Primary Care Provider] -
[2023-03-20] MEDS: SODIUM CHLORIDE 0.9% 1,000 ML IV SCH ×2 (15:52→16:59)
[2023-03-20 16:22] LABS: Basophils # (auto) 0.04 K/uL (0.00-0.20); Basophils % (auto) 0.3 %; Eosinophils # (auto) 0.09 K/uL (0.00-0.50); Eosinophils % (auto) 0.7 %; Hematocrit (blood only) 36.4 % (42.0-52.0); Immature Granulocytes # (auto) 0.05 K/uL (0.01-0.20); Immature Granulocytes % (auto) 0.4 %; Lymphocytes # (auto) 0.97 K/uL (1.20-3.40); Mean Corpuscular Hemoglobin 30.6 pg (25.0-34.0); Mean Corpuscular Volume 92.9 fL (80.0-100.0); Mean Platelet Volume 11.4 fL (9.4-12.4); Monocytes # (auto) 1.51 K/uL (0.11-0.59); Monocytes % (auto) 12.5 %; Neutrophils # (auto) 9.43 K/uL (1.40-6.50); Neutrophils % (auto) 78.1 %; Platelet Count 213 K/uL (130-400); RDW Coefficient of Variation 12.5 % (11.5-14.5); RDW Standard Deviation 42.9 fL (36.4-46.3); Red Blood Count 3.92 M/uL (4.70-6.10); White Blood Count 12.09 K/ul (4.8-10.8)
--- NOTE | 2023-03-20 16:30 | XRay Report ---
XR chest 1V not portable HISTORY: 82 years-old Male worsening shortness of breath acute shortness of breath COMPARISON: 02/16/2023 TECHNIQUE: AP view of the chest FINDINGS: Cardiac silhouette is enlarged. Cardiac valvular prosthesis. No pneumothorax, large pleural effusion or overt pulmonary edema. Chronic interstitial coarsening with unchanged blunting of the right greate r than left costophrenic angles. Emphysema. Bones appear grossly intact. IMPRESSION: 1. No acute processes of the chest. 2. Emphysema with chronic interstitial coarsening of the lung bases. ACT 112: Negative or not required by law. The above report was generated using voice recognition software. It may contain grammatical, syntax o r spelling errors. Electronically signed by: Bharat Garrett M.D. 03/20/2023 4:29 PM
[2023-03-20 16:40] LABS: Albumin Globulin Ratio 1.1 (0.9-2); Albumin Level 3.5 gm/dl (3.4-5.0); BUN Creatinine Ratio 19.8 (10-20); Bilirubin,Total 1.3 mg/dl (0.2-1.0); Creatinine Clr Calc Pharmacy 58.1 ml/min; Est GFR (Non-African American) 69.9 ml/min; Globulin 3.1 gm/dl (2.5-4.0); Magnesium 1.8 mg/dl (1.7-2.4); Potassium 4.9 mmol/L (3.5-5.1); Total Protein 6.6 gm/dl (6.0-8.3)
[2023-03-20 16:43] LABS: Troponin I High Sensitivity 16.1 pg/ml (0-20)
[2023-03-20 16:47] LABS: INR 1.2 (0.9-1.1); Partial Thromboplastin Ratio 1.4; Partial Thromboplastin Time 39 Seconds (21-31); Prothrombin Time 12.7 Seconds (9.0-12.0)
[2023-03-20 16:49] LABS: Influenza A virus by PCR Negative (Neg); Influenza B virus by PCR Negative (Neg); SARS CoV2 RNA(COVID-19) Ceph NEGATIVE (Negative)
[2023-03-20 16:54] LABS: RSV by PCR Positive (Neg)
[2023-03-20] MEDS ORDERED: methylPREDNISolone 125 MG/2 ML VIAL IV STA (19:22)
[2023-03-20] MEDS ORDERED: ALBUT/IPRATROP 3MG/0.5MG NEB 3 ML VIAL NEB STA (19:22)
--- NOTE | 2023-03-20 19:24 | History & Physical Report ---
Date of Service March 20, 2023 Assessment & Plan (1) Acute respiratory failure with hypoxia: Plan: -Admit to med/tele on continuous pulse oximetry -Currently stable on 1L NC -At this time it appears that the patient's acute on chronic hypoxic respiratory failure is due to a COPD exacerbation from RSV infection -He has a mild leukocytosis but procal is negative, CXR is without focal consolidation, patient denies other symptoms such as abd pain, nausea, vomiting, urinary symptoms, or diarrhea -Will start 60 mg IV solu-medrol tonight and continue BID17 dosing tomorrow -Will give 2gm IV mag-sulfate as mag is currently 1.8 -Will start BID doxycycline for atypical coverage -Will give a DuoNeb treatment now and continue with QIDR dosing -Incentive spirometry, flutter therapy, prn O2 to keep SpO2 between 89-92% -Will obtain sputum culture -Home Elqiuis for DVT PPX -HH diet -AM CBC, CMP, Mag, PT/INR (2) Hypotension: Plan: -Patient presented with BP of 74/30 -Currently stable S/P 1L NSS -Likely multifactorial including poor oral intake, dehydration, and continued antihypertensive/diuretic use -Initial lactate elevated at 2.1, repeat down to WNL -Patient appears dehydrated on exam -Will hold home Entresto, spironolactone, lasix, and alfuzosin for now -Will give 1L LR at 100 mL/hr overnight -Monitor BP and volume status moving forward (3) RSV infection: Plan: -Positive today -Continue management per acute hypoxic respiratory failure plan (4) Hyponatremia: Plan: -Sodium at 131 today -While patient does have a hx of cirrhosis, he appears dehydrated on exam and is not in acute decompensation -Likely a combination of poor oral intake and continued diuretic use -Continue IV fluids overnight, monitor daily volume status, renal function, and electrolytes (5) Generalized weakness: Plan: -Likely due to acute illness and poor oral intake -Continue treatment of acute illness -PT/OT consults placed -Fall precautions (6) Atrial fibrillation: Plan: -Currently rate controlled -Conitnue Eliquis and Metoprolol (7) Cirrhosis: Plan: -Total bili at 1.3 today but other LFT's are WNL -INR at 1.2 but patient is also on Eliquis -Patient is alert/oriented and does not appear to be in any sort of decompensation at this time -Would restart diuretics until his BP is stable Plan The patient was discussed with Dr. Palencia at the time of the admission History of Present Illness Chief Complaint: Cough, SOB, generalized weakness Primary Care Provider: Juan Ramos DO Gil is an 82 year old male with a PMH significant for COPD on 2L NC HS/prn, alcoholic cirrhosis, aifb on Elqiuis, PAD, and BPH who presented to the [facility] ED on 03/20 with complaints of progressive Cough, SOB, and generalized weakness. In the ED he was noted to be hypoxic at 84% on RA and hypotensive at 74/30 but otherwise stable. Labs were significant for a leukocytosis of 12 with neutrophil predominance of 9.4, initial lactate of 2.1 which has subsequently cleared, sodium of 131, BNP of 235 (lower compared to previous values), and RSV negative. Chest xray was read as "1. No acute processes of the chest. 2. Emphysema with chronic interstitial coarsening of the lung bases.". Prior to admission the patient was given 1L NSS. At the time of the exam the patient was sitting in bed in no acute distress with his and Daughter sitting beside. He was treated for bacterial pneumonia with a course of Augmentin last month, which he did complete. However, he does not feel as though he ever completely returned to his baseline respiratory status. Over the past week he has had a significant increased in his cough, now with brown sputum (baseline is white/clear), increased SOB/MATTHEW even with increased use of his albuterol rescue inhaler, and generalized weakness. He uses 2L O2 via NC HS and prn usually with exertion. Over the past 48 hours he has had to use 2L NC continuously. We discussed code status, he wishes to be a DNR/DNI and for his to make medical decisions for him if he cannot make them himself. Please refer to Dr. Palencia's attestation for any changes to the treatment plan Allergies Allergy/AdvReac Type Severity Reaction Status Date / Time cephalexin [From Keflex] Allergy Hives Verified 03/20/23 19:08 Home Medications Medication Instructions Recorded Confirmed Type multivitamin (Daily Multi-Vitamin 1 tab PO QAM 07/20/20 03/20/23 History tablet) Oxygen Home #2 L 10/14/21 03/20/23 Rx magnesium oxide 400 mg (241.3 mg 400 mg PO QAM #30 tabs 01/14/22 03/20/23 Rx magnesium) tablet sacubitril 24 mg-valsartan 26 mg 1 tab PO BID #180 tabs 05/16/22 03/20/23 Rx tablet (Entresto) alfuzosin 10 mg tablet,extended 10 mg PO QPM 07/11/22 03/20/23 History release 24 hr (Uroxatral) omeprazole 20 mg capsule,delayed 20 mg PO QAM 07/11/22 03/20/23 History release spironolactone 25 mg tablet 25 mg PO QAM 07/11/22 03/20/23 History metoprolol succinate 25 mg 12.5 mg (1/2 x 25 mg) PO QAM #45 09/26/22 03/20/23 Rx tablet,extended release 24 hr tabs budesonide-formoterol HFA 160 2 puff inhalation BID #3 Inhalers 09/27/22 03/20/23 Rx mcg-4.5 mcg/actuation aerosol inhaler (Symbicort) tiotropium bromide 2.5 2 puff inhalation QAM #3 Inhalers 10/05/22 03/20/23 Rx mcg/actuation mist for inhalation (Spiriva Respimat) furosemide 40 mg tablet 40 mg PO DAILY PRN weight gain #90 01/12/23 03/20/23 Rx tabs albuterol sulfate 90 mcg/actuation 2 puff inhalation QID PRN 02/07/23 03/20/23 Rx aerosol inhaler (Ventolin HFA) shortness of breath or wheezing #18 grams atorvastatin 20 mg tablet 20 mg PO HS #90 tabs 03/08/23 03/20/23 Rx apixaban 5 mg tablet (Eliquis) 5 mg PO BID 03/20/23 03/20/23 History Past Med/Surg History Medical History (Updated 03/21/23 @ 11:31 by Sangeetha Coto MD) Hypoxia Right lower lobe pneumonia 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 Recommend 1 year follow up. Heart failure with mid-range ejection fraction Bradycardia Hematuria Chronic obstructive pulmonary disease History of tobacco use BPH with obstruction/lower urinary tract symptoms Diverticulosis SNHL (sensorineural hearing loss) Seasonal allergies Tinnitus GERD (gastroesophageal reflux disease) Atrial fibrillation Hypertension Hyperlipidemia Surgical History (Updated 11/16/22 @ 09:36 by Juan Ramos DO) Hx of amputation of lesser toe (~07/2022) Osteomyelitis H/O mitral valve replacement 2015 Status post Mohs surgery left cheek, left arm (squamous cell) Status post anal fissurectomy History of colonoscopy History of tooth extraction History of tonsillectomy History of cardiac radiofrequency ablation History of cardiac cath 03/2015 > no stents Family History Father Family hx colonic polyps Mother Heart disease Other Hypertension No family history of adverse response to anesthesia Social History Smoking Status: Former smoker Tobacco Type: Cigarettes Age Started Using Tobacco: 17; Age Quit Using Tobacco: 62; packs per day: 2; Cigarettes Per Day: 2 packs; Second Hand Exposure: No; Do You Dip or Chew Tobacco: No; Hx Alcohol Use: Yes Alcohol type: beer Alcohol Intake Frequency: 2-3 x/Week Hx Substance Use: No Preferred Language: Turkmen Communication Ability: Effective Visual Impairment: Limited Hearing Ability: Normal 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: No Beliefs That Will Affect Care: None marital status: Current Living Situation: Spouse current occupational status: retired Feels Safe at Home: Yes Childhood Exposure to Second-Hand Smoke: Yes Diet: regular Diet Comment: Educated to increase protein, vitamin c d and zinc caffeine: Yes during the past year weight has: decreased > 10 lbs Dental Care, Regularly: Yes Physical Activity Frequency: 1-2 Times per Week Physical Activity Frequency Comment: walks Seatbelt Use: always Sunscreen Use: Yes Do you think of yourself as: straight/heterosexual Assistive Devices: Other Physical Exam Physical Exam: Physical Exam: General: In no acute distress, stated age, ill appearing but non-toxic HEENT: Normocephalic, atraumatic, no scleral icterus, pupils around round, symmetrical, and reactive to light, dry mucus membranes, trachea midline, no thyromegaly Chest/Pulm: No respiratory distress, symmetrical chest expansion, scattered expiratory wheezing throughout Cardiac: irregular rate and rhythm, no murmurs noted Abdomen: Negative for ascites and bruising, normoactive bowel sounds, soft, non-tender to palpation throughout Musculoskeletal: Symmetrical and without signs of acute trauma, upper and lower extremities with full ROM, no atrophy, spasticity, or flaccidity Extremities: Radial, dorsalis pedis, and posterior tibial pulses are intact and symmetrical, no edema noted in the BL LE's Skin: Warm, dry, no rashes , lesions, or scars noted Neuro: Alert and oriented to person, place, month, year, and president, no focal defects, no tremors noted Psych: No acute distress, calm and cooperative during the exam Results & Data Results & Data Vital Signs (Past 12 Hours) Vital Signs Temp Pulse Pulse Resp BP BP Pulse Ox 03/20/23 17:31 95 H 16 111/64 99 03/20/23 16:46 92 H 19 111/57 L 99 03/20/23 15:41 95 H 03/20/23 15:41 03/20/23 15:40 84 L 03/20/23 15:23 36.6 C 98 H 16 74/30 L 90 O2 Del Method O2 Flow Rate 03/20/23 17:31 Room Air 03/20/23 16:46 Room Air 03/20/23 15:41 03/20/23 15:41 Nasal Cannula 2 03/20/23 15:40 Room Air 03/20/23 15:23 Nasal Cannula 2 Laboratory Results Abnormal lab results 03/20/23 03/20/23 Range/Units 15:50 15:55 WBC 12.09 H (4.8-10.8) K/ul RBC 3.92 L (4.70-6.10) M/uL Hgb 12.0 L (14.0-18.0) g/dl Hct 36.4 L (42.0-52.0) % Neut # (Auto) 9.43 H (1.40-6.50) K/uL Lymph # (Auto) 0.97 L (1.20-3.40) K/uL [place] # (Auto) 1.51 H (0.11-0.59) K/uL PT 12.7 H (9.0-12.0) Seconds INR 1.2 H (0.9-1.1) APTT 39 H (21-31) Seconds Sodium 131 L (136-145) mmol/L Chloride 95 L (98-107) mmol/L Glucose 116 H (70-99(Fasting)) mg/dl Lactate 2.1 H* (0.4-2.0) mmol/L Total Bilirubin 1.3 H (0.2-1.0) mg/dl Alkaline Phosphatase 105 H (34-104) U/L B-Natriuretic Peptide 235 H (0-100) pg/ml RSV (RT-PCR) Positive A* (Neg) Diagnostic Findings Chest X-Ray 03/20/23 15:28 XR chest 1V not portable HISTORY: 82 years-old Male worsening shortness of breath acute shortness of breath COMPARISON: 02/16/2023 TECHNIQUE: AP view of the chest FINDINGS: Cardiac silhouette is enlarged. Cardiac valvular prosthesis. No pneumothorax, large pleural effusion or overt pulmonary edema. Chronic interstitial coarsening with unchanged blunting of the right greater than left costophrenic angles. Emphysema. Bones appear grossly intact. IMPRESSION: 1. No acute processes of the chest. 2. Emphysema with chronic interstitial coarsening of the lung bases. ACT 112: Negative or not required by law. The above report was generated using voice recognition software. It may contain grammatical, syntax or spelling errors. Electronically signed by: Bharat Garrett M.D. 03/20/2023 4:29 PM ECG Additional Comments: Sinus tachycardia with A-V dissociation and Wide QRS rhythm with occasional Premature ventricular complexes Non-specific intra-ventricular conduction block Cannot rule out Anterior infarct , age undetermined T wave abnormality, consider inferior ischemia Abnormal ECG When compared with ECG of 22-SEP-2022 12:56, (unconfirmed) Previous ECG has undetermined rhythm, needs review Code Status & VTE Plan Code Status DNR/DNI VTE Prophylaxis Plan VTE Prophylaxis will be ordered: Yes Supervising Physician Co-Signing Physician Notes Patient seen and examined, chart reviewed, case discussed with Angel Szymanski PA-C and I agree with the assessment and plan as above except as otherwise noted Labs and images reviewed Gil is an 82-year-old male with past medical history of COPD, bradycardia, CHF, PAD, pulmonary hypertension, BPH, COPD who presented with acute respiratory failure with hypoxia and was found to be RSV positive. Initially hypotensive, rapidly improved following fluids. Initially with significant wheezing improving following initial treatment. No assessment minimal trace expiratory wheezes on forced expiration otherwise clear, heart rate is regular agree with continued steroid treatments for underlying COPD, supportive care for RSV. Mag repleted to goal of 2, doxycycline continued for superimposed COPD exacerbation with prolonged QT. BP normalized, otherwise clinically improved agree with assessment above. PG Care Time/CCT Total # of Minutes Spent Total Time Spent with Patient: Total time spent is greater than 50% in coordination of care (as documented) at patient's floor/unit and/or counseling patient: C[place] [address] INT INP/OBS CARE 2/55MIN Patient Type Established Medical Decision Making Moderate Complexity Diagnoses Acute respiratory failure with hypoxia J96.01 Hypotension I95.9 RSV infection B33.8 Hyponatremia E87.1 Generalized weakness R53.1 Permanent atrial fibrillation I48.21 Atrial fibrillation type: permanent Alcoholic cirrhosis of liver without ascites K70.30 Ascites presence: without ascites Hepatic cirrhosis type: alcoholic cirrhosis (6) Atrial fibrillation Atrial fibrillation type: permanent Qualified Code(s): I48.21 - Permanent atrial fibrillation (7) Cirrhosis Ascites presence: without ascites Hepatic cirrhosis type: alcoholic cirrhosis Qualified Code(s): K70.30 - Alcoholic cirrhosis of liver without ascites
[2023-03-20] MEDS ORDERED: DOXYCYCLINE HYCLATE 100 MG in DEXTROSE 5% MINI-B 100 ML IV STA (19:25)
[2023-03-20] MEDS ORDERED: guaiFENesin SUGAR FREE 100 MG/5 ML UDC PO STA (19:46)
[2023-03-20] MEDS ORDERED: LACTATED RINGER'S 1,000 ML IV SCH (20:00)
[2023-03-20] MEDS: MAGNESIUM SULFATE / D5W 1 GM/100 ML BAG IV SCH ×2 (20:32→22:21)
[2023-03-20] MEDS: BUDESONIDE 0.5 MG/2 ML VIAL (PULMICORT) NEB SCH (22:43)
[2023-03-20] MEDS: FORMOTEROL 20 MCG/2 ML VIAL NEB SCH (22:43)
[2023-03-20] MEDS: APIXABAN 5 MG TABLET PO SCH (22:53)
[2023-03-20] MEDS: TAMSULOSIN HCL 0.4 MG CAP PO SCH (22:54)
[2023-03-20] MEDS: ATORVASTATIN 20 MG TAB PO SCH (22:54)
[2023-03-21 06:55] LABS: INR 1.2 (0.9-1.1); Prothrombin Time 12.7 Seconds (9.0-12.0)
[2023-03-21] MEDS: FORMOTEROL 20 MCG/2 ML VIAL NEB SCH ×2 (07:08→20:05)
[2023-03-21] MEDS: BUDESONIDE 0.5 MG/2 ML VIAL (PULMICORT) NEB SCH ×2 (07:08→20:05)
[2023-03-21 07:09] LABS: Albumin Globulin Ratio 1.2 (0.9-2); BUN Creatinine Ratio 20.2 (10-20); Calcium 8.3 mg/dl (8.6-10.3); Creatinine Clr Calc Pharmacy 70.5 ml/min; Est GFR (African American) 95.8 ml/min; Est GFR (Non-African American) 82.7 ml/min; Globulin 2.5 gm/dl (2.5-4.0); Magnesium 2.1 mg/dl (1.7-2.4); Potassium 5.3 mmol/L (3.5-5.1); Total Protein 5.5 gm/dl (6.0-8.3)
[2023-03-21 07:16] LABS: Hematocrit (blood only) 32.4 % (42.0-52.0); Hemoglobin 10.5 g/dl (14.0-18.0); Immature Granulocytes # (auto) 0.02 K/uL (0.01-0.20); Immature Granulocytes % (auto) 0.4 %; Lymphocytes # (auto) 0.41 K/uL (1.20-3.40); Mean Corpuscular Hemoglobin 30.5 pg (25.0-34.0); Mean Corpuscular Hgb Conc 32.4 g/dL (32.0-36.0); Mean Corpuscular Volume 94.2 fL (80.0-100.0); Mean Platelet Volume 11.3 fL (9.4-12.4); Monocytes # (auto) 0.09 K/uL (0.11-0.59); Neutrophils # (auto) 4.02 K/uL (1.40-6.50); Neutrophils % (auto) 88.6 %; Platelet Count 169 K/uL (130-400); RDW Coefficient of Variation 12.5 % (11.5-14.5); RDW Standard Deviation 42.9 fL (36.4-46.3); Red Blood Count 3.44 M/uL (4.70-6.10); White Blood Count 4.54 K/ul (4.8-10.8)
[2023-03-21] MEDS ORDERED: DOXYCYCLINE HYCLATE 100 MG in DEXTROSE 5% MINI-B 100 ML IV SCH (08:00)
[2023-03-21 08:22] LABS: Appearance Urine Clear (Clear); Bacteria Urine Automated Negative (Negative); Bilirubin Urine Negative (Negative); Blood Urine Negative (Negative); Color Urine Dark Yellow; Epithelial Cell Urine Auto >30 /lpf (0-5); Glucose Urine UA Negative (Negative); Ketones Urine 1+ (Negative); Leukocyte Esterase Urine 1+ (Negative); Nitrite Urine Negative (Negative); Protein Urine Negative (Negative); RBC Urine Automated 0-4 /hpf (0-4); Specific Gravity Urine 1.017 (1.000-1.030); Urobilinogen Urine Negative (Negative)
[2023-03-21] MEDS: methylPREDNISolone 60 MG in SYRINGE 0 ML IV SCH ×2 (08:45→16:49)
[2023-03-21] MEDS: PANTOprazole 40 MG TAB PO SCH (08:46)
[2023-03-21] MEDS: MAGNESIUM OXIDE 400 MG TAB PO SCH (08:46)
[2023-03-21] MEDS: APIXABAN 5 MG TABLET PO SCH ×2 (08:46→20:34)
[2023-03-21] MEDS ORDERED: methylPREDNISolone 125 MG/2 ML VIAL IV SCH (09:00)
[2023-03-21] MEDS ORDERED: METOPROLOL SUCC 25MG EXT REL TAB PO SCH (09:00)
--- NOTE | 2023-03-21 09:07 | Electrocardiogram Report ---
Test Reason : Blood Pressure : / mmHG Vent. Rate : 097 BPM Atrial Rate : 104 BPM P-R Int : 000 ms QRS Dur : 126 ms QT Int : 380 ms P-R-T Axes : 000 082 -34 degrees QTc Int : 482 ms Atrial fibrillation with premature ventricular or aberrantly conducted complexes Non-specific intra-ventricular conduction block Abnormal ECG When compared with ECG of 22-SEP-2022 12:56, HR has increased by 36 bpm Otherwise no significant change Confirmed by Mango Rodrigez ([id number]) on 03/21/2023 9:07:12 AM Referred By: REFERRED SELF Confirmed By:Mango Rodrigez
[2023-03-21 10:17] LABS: A calco-baum cmplx NotReported Not Detected (NotDetected); Bact fragilis Not Reported Not Detected (NotDetected); Blood Culture Id Panel See PCR Comment (NotDetected); C auris Not Reported Not Detected (NotDetected); Calbicans Not Reported Not Detected (NotDetected); Candida glabrata Not Reported Not Detected (NotDetected); Candida krusei Not Reported Not Detected (NotDetected); Cneoformans/gatti Not Reported Not Detected (NotDetected); Cparapsilosis Not Reported Not Detected (NotDetected); E cloacae compx Not Reported Not Detected (NotDetected); Efaecalis Not Reported Not Detected (NotDetected); Efaecium Not Reported Not Detected (NotDetected); Enterobacterales Not Reported Not Detected (NotDetected); Escherichia coli Not Reported Not Detected (NotDetected); H influenzae Not Reported Not Detected (NotDetected); K aerogenes Not Reported Not Detected (NotDetected); Koxytoca Not Reported Not Detected (NotDetected); Kpneumoniae grp Not Reported Not Detected (NotDetected); Lmonocyt Not Reported Not Detected (NotDetected); N meningitidis Not Reported Not Detected (NotDetected); P aeruginosa Not Reported Not Detected (NotDetected); Proteus spp Not Reported Not Detected (NotDetected); Salmonella spp Not Reported Not Detected (NotDetected); Smarcescens Not Reported Not Detected (NotDetected); Staph lugdunensis Not Reported Not Detected (NotDetected); Staph spp. Not Reported DETECTED (NotDetected); Staphaureus Not Reported Not Detected (NotDetected); Staphepi Not Reported DETECTED (NotDetected); Staphylococcus spp. DETECTED (NotDetected); Stenmaltophilia Not Reported Not Detected (NotDetected); Strep agal(GrpB) Not Reported Not Detected (NotDetected); Strep pneum Not Reported Not Detected (NotDetected); Strep pyog (GrpA) Not Reported Not Detected (NotDetected); Strep spp Not Reported Not Detected (NotDetected)
[2023-03-21 10:48] LABS: Staphylococcus epidermidis DETECTED (NotDetected); mecAC Resistant Gene DETECTED (NotDetected)
[2023-03-21] MEDS: ALBUT/IPRATROP 3MG/0.5MG NEB 3 ML VIAL NEB SCH ×3 (11:06→20:06)
--- NOTE | 2023-03-21 11:34 | Hospitalist Progress Note ---
Date of Service March 21, 2023 Assessment & Plan (1) Acute respiratory failure with hypoxia: Plan: acute on chronic hypoxic respiratory failure is due to a COPD exacerbation from RSV infection -He has a mild leukocytosis but procal is negative, CXR is without focal consolidation - continue Solu-Medrol 60 mg IV twice daily for today, changed to prednisone 40 mg for tomorrow - continue bronchodilators with DuoNebs 4 times daily and as needed - continue doxycycline changed to p.o. twice daily for 5 days -Incentive spirometry, flutter therapy, prn O2 to keep SpO2 between 89-92% -Will obtain sputum culture -CBC, CMP, Mag, PT/INR reviewed and unremarkable today (2) Hypotension: Plan: -Patient presented with BP of 74/30 likely volume depletion resolved after 1L NS - resume Entresto - spironolactone is held he is slightly hyperkalemic, ordered BMP for tomorrow morning Lasix is held (3) RSV infection: Plan: -Continue management per acute hypoxic respiratory failure plan -discussed RSV vaccine option in future (4) Hyponatremia: Plan: -Sodium improved from 131 to 132 after volume replacement - there is some component of chronic hyponatremia based on past labs may be related to lung disease and chronic diuretics - mild and asymptomatic, monitor BMP (5) Generalized weakness: Plan: -Likely due to acute illness and poor oral intake -Continue treatment of acute illness -PT/OT consults placed -Fall precautions (6) Atrial fibrillation: Plan: -Currently rate controlled -Conitnue Eliquis and Metoprolol -Repeat EKG reviewedshows atrial fibrillation right bundle branch block which is not new based on my review of old tracings, old anteroseptal Q waves present (7) Cirrhosis: Plan: -Total bili at 1.3 today but other LFT's are WNL -INR at 1.2 but patient is also on Eliquis - resume diuretics once euvolemic and oral intake improved (8) Positive blood culture: Plan: staph epi in one bottle from ED -likely skin contaminant, follow cultures (9) Arteriosclerotic coronary artery disease: Plan: is on apixaban and not on aspirin per his can filler Dr. Santiago. has too much bruisability on apixaban to tolerate the addition of aspirin previously had coronary angiogram with nonobstructive coronary disease continue metoprolol, atorvastatin (10) PAD (peripheral artery disease): Plan: as above (11) Chronic obstructive pulmonary disease: Plan: treatment as above (12) BPH with obstruction/lower urinary tract symptoms: Plan: continue tamsulosin Plan DVT ppx: apixaban Dispo: likely home with his , PT/OT pending Admission and Anticipated Discharge Date Admission Date: March 20, 2023 Subjective Shortness of breath has improved overnight. Currently on neb. Has had increased dyspnea and cough for a month. Cough is loosening up today. No CP and no leg swelling. USed to have neb at home, not now. Has home O2 nocturnal only, recently had to use in day. His had a mild URI, improved. Physical Exam 2 Physical Exam: PHYSICAL EXAMINATION Last 24h vital signs reviewed, see documentation in flowsheet General: comfortable appearing, no distress, thin man sitting up in chair using nebulizer HEENT: Normocephalic, atraumatic, pupils round and equal, sclerae anicteric, no conjunctival injection, moist mucus membranes Lungs: mildly increased respiratory effort. scattered rales and crackles posteriorly slight expiratory wheeze especially left anterior. Heart: irregularly irregular, no murmurs. No JVD Abdomen: Soft, nontender, nondistended. Bowel sounds present. Extremities: Warm, dry, well-perfused. No extremity edema. Neuro: Alert and oriented x 4, face symmetric, moves 4 extremities well Psych: Normal affect and behavior Results & Data Results & Data Vital Signs (Past 12 Hours) Vital Signs Temp Pulse Pulse Pulse Resp BP Pulse Ox 03/21/23 11:09 67 18 97 03/21/23 10:21 99 03/21/23 09:21 03/21/23 07:37 36.5 C 68 16 106/67 97 03/21/23 07:12 53 L 03/21/23 07:09 58 L 18 98 03/21/23 03:09 36.5 C 87 16 112/62 98 O2 Del Method O2 Flow Rate 03/21/23 11:09 Nasal Cannula 2 03/21/23 10:21 03/21/23 09:21 Nasal Cannula 2 03/21/23 07:37 Nasal Cannula 2 03/21/23 07:12 03/21/23 07:09 Nasal Cannula 2 03/21/23 03:09 Nasal Cannula 2 Laboratory Results 03/21/23 06:03 03/21/23 06:03 PG Care Time/CCT Total # of Minutes Spent Total Time Spent with Patient: Total time spent is greater than 50% in coordination of care (as documented) at patient's floor/unit and/or counseling patient: Coding Level of Care Code 58142 SUB INP/OBS CARE 3/50MIN Diagnoses Acute respiratory failure with hypoxia J96.01 Hypotension I95.9 RSV infection B33.8 Hyponatremia E87.1 Generalized weakness R53.1 Permanent atrial fibrillation I48.21 Atrial fibrillation type: permanent Alcoholic cirrhosis of liver without ascites K70.30 Ascites presence: without ascites Hepatic cirrhosis type: alcoholic cirrhosis Positive blood culture R78.81 Arteriosclerotic coronary artery disease I25.10 PAD (peripheral artery disease) I73.9 Centrilobular emphysema J43.2 COPD type: emphysema Emphysema type: centrilobular BPH with obstruction/lower urinary tract symptoms N40.1; N13.8 (6) Atrial fibrillation Atrial fibrillation type: permanent Qualified Code(s): I48.21 - Permanent atrial fibrillation (7) Cirrhosis Ascites presence: without ascites Hepatic cirrhosis type: alcoholic cirrhosis Qualified Code(s): K70.30 - Alcoholic cirrhosis of liver without ascites (11) Chronic obstructive pulmonary disease COPD type: emphysema Emphysema type: centrilobular Qualified Code(s): J43.2 - Centrilobular emphysema
--- NOTE | 2023-03-21 16:38 | Electrocardiogram Report ---
Test Reason : Blood Pressure : / mmHG Vent. 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
[2023-03-21] MEDS: ATORVASTATIN 20 MG TAB PO SCH (20:34)
[2023-03-21] MEDS: TAMSULOSIN HCL 0.4 MG CAP PO SCH (20:34)
[2023-03-21] MEDS: DOXYCYCLINE HYCLATE 100 MG CAP PO SCH (20:34)
[2023-03-21] MEDS: VALSARTAN/SACUBITRIL 26/24MG TAB PO SCH (20:35)
[2023-03-22] MEDS ORDERED: BENZONATATE 100 MG CAPSULE PO ONE (03:11)
[2023-03-22 06:15] LABS: BUN Creatinine Ratio 24.5 (10-20); Calcium 8.2 mg/dl (8.6-10.3); Creatinine Clr Calc Pharmacy 63.7 ml/min; Est GFR (African American) 88.4 ml/min; Est GFR (Non-African American) 76.3 ml/min; Potassium 4.7 mmol/L (3.5-5.1)
--- NOTE | 2023-03-22 06:38 | Communication Note ---
Date of Service: March 22, 2023 Notified by RN of pt's atrial fibrillation (known) and bradycardia to 30s, asymptomatic and normotensive. Held metoprolol, morning labs reviewed with no rmal K, added Mg to AM labs (last Mg wnl). Defer to day team about decision to consult cardiology or not. Continue telemetry monitoring.
[2023-03-22 07:11] LABS: Magnesium 2.1 mg/dl (1.7-2.4)
[2023-03-22] MEDS: ALBUT/IPRATROP 3MG/0.5MG NEB 3 ML VIAL NEB SCH ×5 (07:20→20:11)
[2023-03-22] MEDS: BUDESONIDE 0.5 MG/2 ML VIAL (PULMICORT) NEB SCH ×2 (07:20→20:11)
[2023-03-22] MEDS: FORMOTEROL 20 MCG/2 ML VIAL NEB SCH ×2 (07:21→20:10)
--- NOTE | 2023-03-22 07:48 | Hospitalist Progress Note ---
Date of Service March 22, 2023 Assessment & Plan (1) Acute respiratory failure with hypoxia: Plan: acute on chronic hypoxic respiratory failure is due to a COPD exacerbation from RSV infection -He has a mild leukocytosis but procal is negative, CXR is without focal consolidation - initially treated with Solu-Medrol 60 mg IV twice daily, changed to prednisone 40 mg for today - continue bronchodilators with DuoNebs 4 times daily and as needed - sputum cx with gram neg - discussed with pharmacist and patient - change po doxy to augmentin for acute bronchitis. check PCT but doubt pneumonia. - clarified he tolerates amoxicillin well (has keflex rash listed) -Incentive spirometry, flutter therapy, prn O2 to keep SpO2 between 89-92% -CBC,BMP, Mag, reviewed and remarkable for Na down to 130 (2) RSV infection: Plan: -Continue management per acute hypoxic respiratory failure plan -discussed RSV vaccine option in future (3) Hypotension: Plan: -Patient presented with BP of 74/30 likely volume depletion resolved after 1L NS - resumed Entresto - spironolactone is held he is slightly hyperkalemic, today improved to 4.7. continue holding Lasix is held (4) Hyponatremia: Plan: -Sodium improved from 131 to 132 after volume replacement, now 130 - there is some component of chronic hyponatremia based on past labs may be related to lung disease and chronic diuretics - mild and asymptomatic, monitor BMP (5) Generalized weakness: Plan: -Likely due to acute illness and poor oral intake -Continue treatment of acute illness -PT/OT consults placed -Fall precautions (6) Atrial fibrillation: Plan: -Currently rate controlled -Conitnue Eliquis and Metoprolol -Repeat EKG reviewedshows atrial fibrillation right bundle branch block which is not new based on my review of old tracings, old anteroseptal Q waves present (7) Cirrhosis: Plan: -Total bili at 1.3 but other LFT's are WNL -INR at 1.2 but patient is also on Eliquis - resume diuretics once euvolemic and oral intake improved (8) Positive blood culture: Plan: staph epi in two bottles from one set from ED, second set NGTD -possibly skin contaminant, order repeat set of blood cultures 03/22 this AM (9) Arteriosclerotic coronary artery disease: Plan: is on apixaban and not on aspirin 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 Santiago. 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 Physical Exam 2 Physical Exam: PHYSICAL EXAMINATION Last 24h vital signs reviewed, see documentation in flowsheet General: comfortable appearing, no distress, reclining in bed HEENT: Normocephalic, atraumatic, pupils round and equal, sclerae anicteric, no conjunctival injection, moist mucus membranes Lungs: slightly increased respiratory effort. frequent cough prod lots greenish yellow sputum, not wheezing, diminished throughout slightly coarse in bases Heart: irregularly irregular, no murmurs. No JVD Abdomen: Soft, nontender, nondistended. Bowel sounds present. Extremities: Warm, dry, well-perfused. No extremity edema. Neuro: Alert and oriented x 4, face symmetric, moves 4 extremities well Psych: Normal affect and behavior Results & Data Results & Data Vital Signs (Past 12 Hours) Vital Signs Temp Pulse Pulse Resp BP Pulse Ox Pulse Ox 03/22/23 07:24 69 14 98 03/22/23 03:15 36.8 C 66 18 101/62 98 03/22/23 00:00 57 L 03/21/23 23:15 36.7 C 57 L 18 115/66 97 03/21/23 22:08 97 03/21/23 20:06 67 18 96 03/21/23 20:00 O2 Del Method O2 Del Method O2 Flow Rate O2 Flow Rate 03/22/23 07:24 Nasal Cannula 2 03/22/23 03:15 Nasal Cannula 2 03/22/23 00:00 03/21/23 23:15 Nasal Cannula 2 03/21/23 22:08 Nasal Cannula 2 03/21/23 20:06 Nasal Cannula 2 03/21/23 20:00 Nasal Cannula 2 Diagnostic Findings 03/21/23 06:03 03/22/23 04:40 PG Care Time/CCT Total # of Minutes Spent Total Time Spent with Patient: Total time spent is greater than 50% in coordination of care (as documented) at patient's floor/unit and/or counseling patient: Coding Level of Care Code 94121 SUB INP/OBS CARE 2/35MIN Diagnoses Acute respiratory failure with hypoxia J96.01 RSV infection B33.8 Hypotension I95.9 Hyponatremia E87.1 Generalized weakness R53.1 Permanent atrial fibrillation I48.21 Atrial fibrillation type: permanent Alcoholic cirrhosis of liver without ascites K70.30 Ascites presence: without ascites Hepatic cirrhosis type: alcoholic cirrhosis Positive blood culture R78.81 Arteriosclerotic coronary artery disease I25.10 PAD (peripheral artery disease) I73.9 Centrilobular emphysema J43.2 COPD type: emphysema Emphysema type: centrilobular BPH with obstruction/lower urinary tract symptoms N40.1; N13.8 (6) Atrial fibrillation Atrial fibrillation type: permanent Qualified Code(s): I48.21 - Permanent atrial fibrillation (7) Cirrhosis Ascites presence: without ascites Hepatic cirrhosis type: alcoholic cirrhosis Qualified Code(s): K70.30 - Alcoholic cirrhosis of liver without ascites (11) Chronic obstructive pulmonary disease COPD type: emphysema Emphysema type: centrilobular Qualified Code(s): J43.2 - Centrilobular emphysema
[2023-03-22] MEDS: PANTOprazole 40 MG TAB PO SCH (08:24)
[2023-03-22] MEDS: VALSARTAN/SACUBITRIL 26/24MG TAB PO SCH ×2 (08:24→20:30)
[2023-03-22] MEDS: predniSONE 20 MG TAB PO SCH (08:24)
[2023-03-22] MEDS: APIXABAN 5 MG TABLET PO SCH ×2 (08:25→20:30)
[2023-03-22] MEDS: MAGNESIUM OXIDE 400 MG TAB PO SCH (08:25)
[2023-03-22] MEDS ORDERED: guaiFENesin SUGAR FREE 200 MG/10 ML UDC PO PRN (09:50)
[2023-03-22] MEDS: DOXYCYCLINE HYCLATE 100 MG CAP PO SCH (11:10)
[2023-03-22] MEDS: AMOXICILLIN/CLAVULANATE 875 MG TAB PO SCH ×2 (13:46→18:03)
[2023-03-22] MEDS: TAMSULOSIN HCL 0.4 MG CAP PO SCH (20:29)
[2023-03-22] MEDS: ATORVASTATIN 20 MG TAB PO SCH (20:30)
[2023-03-23] MEDS: BUDESONIDE 0.5 MG/2 ML VIAL (PULMICORT) NEB SCH (07:21)
[2023-03-23] MEDS: FORMOTEROL 20 MCG/2 ML VIAL NEB SCH (07:21)
[2023-03-23] MEDS: ALBUT/IPRATROP 3MG/0.5MG NEB 3 ML VIAL NEB SCH ×3 (08:09→16:33)
[2023-03-23] MEDS: PANTOprazole 40 MG TAB PO SCH (08:27)
[2023-03-23] MEDS: VALSARTAN/SACUBITRIL 26/24MG TAB PO SCH (08:27)
[2023-03-23] MEDS: predniSONE 20 MG TAB PO SCH (08:27)
[2023-03-23] MEDS: MAGNESIUM OXIDE 400 MG TAB PO SCH (08:28)
[2023-03-23] MEDS: APIXABAN 5 MG TABLET PO SCH (08:28)
[2023-03-23] MEDS ORDERED: CIPROFLOXACIN 500 MG TAB PO SCH (09:00)
--- NOTE | 2023-03-23 18:27 | Discharge Summary ---
Date of Service March 23, 2023 Admission HPI Per Admitting Provider Gil is an 82 year old male with a PMH significant for COPD on 2L NC HS/prn, alcoholic cirrhosis, aifb on Elqiuis, PAD, and BPH who presented to the [facility] ED on 03/20 with complaints of progressive Cough, SOB, and generalized weakness. In the ED he was noted to be hypoxic at 84% on RA and hypotensive at 74/30 but otherwise stable. Labs were significant for a leukocytosis of 12 with neutrophil predominance of 9.4, initial lactate of 2.1 which has subsequently cleared, sodium of 131, BNP of 235 (lower compared to previous values), and RSV negative. Chest xray was read as "1. No acute processes of the chest. 2. Emphysema with chronic interstitial coarsening of the lung bases.". Prior to admission the patient was given 1L NSS. At the time of the exam the patient was sitting in bed in no acute distress with his and Daughter sitting beside. He was treated for bacterial pneumonia with a course of Augmentin last month, which he did complete. However, he does not feel as though he ever completely returned to his baseline respiratory status. Over the past week he has had a significant increased in his cough, now with brown sputum (baseline is white/clear), increased SOB/MATTHEW even with increased use of his albuterol rescue inhaler, and generalized weakness. He uses 2L O2 via NC HS and prn usually with exertion. Over the past 48 hours he has had to use 2L NC continuously. We discussed code status, he wishes to be a DNR/DNI and for his to make medical decisions for him if he cannot make them himself. Principal Diagnosis Acute on chronic respiratory failure with hypoxia due to acute exacerbation of COPD related to RSV infection and Pseudomonas tracheobronchitis Discharge Exam PHYSICAL EXAMINATION Last 24h vital signs reviewed, see documentation in flowsheet General: comfortable appearing, no distress, reclining in bed HEENT: Normocephalic, atraumatic, pupils round and equal, sclerae anicteric, no conjunctival injection, moist mucus membranes Lungs: Comfortable respiratory effort. frequent cough prod lots greenish yellow sputum, not wheezing, diminished throughout but much improved, scattered coarse sounds in bases and mid ibarra Heart: irregularly irregular, no murmurs. No JVD Abdomen: Soft, nontender, nondistended. Bowel sounds present. Extremities: Warm, dry, well-perfused. No extremity edema. Neuro: Alert and oriented x 4, face symmetric, moves 4 extremities well Psych: Normal affect and behavior Discharge Data Allergies Allergy/AdvReac Type Severity Reaction Status Date / Time cephalexin [From Keflex] Allergy Hives Verified 03/20/23 19:08 Consultations 03/20/23 19:02 ED Decision to Admit Stat Ordered Studies Chest X-Ray 03/20/23 15:28 XR chest 1V not portable HISTORY: 82 years-old Male worsening shortness of breath acute shortness of breath COMPARISON: 02/16/2023 TECHNIQUE: AP view of the chest FINDINGS: Cardiac silhouette is enlarged. Cardiac valvular prosthesis. No pneumothorax, large pleural effusion or overt pulmonary edema. Chronic interstitial coarsening with unchanged blunting of the right greater than left costophrenic angles. Emphysema. Bones appear grossly intact. IMPRESSION: 1. No acute processes of the chest. 2. Emphysema with chronic interstitial coarsening of the lung bases. ACT 112: Negative or not required by law. The above report was generated using voice recognition software. It may contain grammatical, syntax or spelling errors. Electronically signed by: Bharat Garrett M.D. 03/20/2023 4:29 PM 03/21/23 06:03 03/22/23 04:40 Hospital Course (1) Acute respiratory failure with hypoxia: acute on chronic hypoxic respiratory failure is due to a COPD exacerbation from RSV infection and Pseudomonas tracheobronchitis -He had a leukocytosis on admission that resolved quickly, serial procalcitonin was negative, CXR is without focal consolidation so no evidence of pneumonia/lower respiratory tract infection - initially treated with nebulized bronchodilators, Solu-Medrol 60 mg IV twice daily, changed to prednisone 40 mg, complete short course on discharge -Sputum culture grew pansensitive Pseudomonas, he does have frequent cough productive of thick greenish sputum that is fairly copious and he has had a very difficult month with increased hypoxia and dyspnea for the last 4 weeks even prior to the RSV so I think this may represent a Pseudomonas tracheobronchitis and elected to treat with 10 days of ciprofloxacin -He will continue his LABA/ICS, as needed albuterol, he has home oxygen for nocturnal use and may use it with exertion if dyspneic, however, his oxygen saturation has improved to 94% on room air by the time of discharge he has follow-up with pulmonary first week in April (2) RSV infection: See above -discussed RSV vaccine option in future (3) Hypotension: -Patient presented with BP of 74/30 likely volume depletion resolved after 1L NS - resumed Entresto -Held diuretics during admission, resume spironolactone at discharge, resume as needed Lasix at discharge (4) Hyponatremia: -Sodium remained low 130s despite volume repletion and asymptomatic - there is some component of chronic hyponatremia based on past labs may be related to lung disease and chronic diuretics - mild and asymptomatic, monitor (5) Generalized weakness: Due to acute illness -PT/OT consults placed -cleared for home independently, improved during this admission (6) Atrial fibrillation: -Currently rate controlled -Conitnue Eliquis and Metoprolol (7) Cirrhosis: -Total bili at 1.3 but other LFT's are WNL -INR at 1.2 but patient is also on Eliquis (8) Positive blood culture: staph epi in two bottles from one set from ED, second set NGTD -Probably skin contaminant, ordered repeat set of blood cultures 03/22-no growth to date (9) Arteriosclerotic coronary artery disease: is on apixaban and not on aspirin per his research administrator Dr. Santiago. 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: continue tamsulosin Total Time Total Time Spent Total Time Spent (In Minutes): I personally spent: 30 minutes today on coordinating care for discharge Discharge Plan Discharge Items Patient Disposition: Home - Self-Care Reason For Visit: GENERALIZED WEAKNESS, RSV, HYPOXIA Discharge Diagnosis: acute on chronic respiratory failure due to acute exacerbation of COPD, RSV infection, pseudomonas tracheobronchitis Activity: Resume your previous activity Non-emergency contact: Primary Care Provider and Ice Carver Call non-emergency contact if: you have any medication questions, your symptoms worsen and you have a fever Follow-up/Referrals: Kevin Richardson MD [Physician] - Juan Ramos DO [Primary Care Provider] - 03/30/23 2:00 pm Diet: Heart Healthy Addtl Attending Provider Instructions: You were treated for COPD exacerbation related to RSV infection. You also had an increase in thick mucous and increased trouble breathing for the last month so I think it is worth treating you for Pseudomonas tracheobronchitis with antibiotic. -use albuterol PRN -continue your usual inhalers -robitussin as needed for cough and to loosen up sputum -ciprofloxacin (antibiotic) for 10 days -prednisone You may need to use your home oxygen with activity for the next 1-2 weeks. Your oxygen level is good at rest. Antibiotics can cause diarrhea. I advise taking a probiotic as directed for 2-4 weeks to prevent diarrhea (available over the counter). If you develop severe diarrhea, especially with belly pain or fever, seek medical attention. Antibiotics like ciprofloxacin care a risk of tendon inflammation or tendon rupture. Unfortunately other types of oral antibiotics won't work on pseudomonas. Seek medical attention and stop taking the antibiotic if you develop new pain in your heel (achilles tendon) or shoulder. This risk can persist for more than a month after taking the antibiotic. Pending Studies at Discharge: No Stand-Alone Forms: My [facility] [employer], Smoking Cessation Medications and DC Order Prescriptions: New ciprofloxacin HCl 500 mg Tablet 500 mg PO BID Qty: 19 0RF prednisone 20 mg tablet See Taper PO DAILY Qty: 11 0RF Taper: Taper, Blank 40 mg DAILY for 3 Days 20 mg DAILY for 5 Days Continued metoprolol succinate 25 mg tablet extended release 24 hr 12.5 mg PO QAM Qty: 45 3RF Symbicort 160-4.5 mcg/actuation HFA aerosol inhaler 2 puff INHALATION BID Qty: 3 3RF Hold Instructions: Med change Spiriva Respimat 2.5 mcg/actuation mist 2 puff INH QAM Qty: 3 3RF furosemide 40 mg tablet 40 mg PO DAILY PRN (Reason: weight gain) Qty: 90 1RF albuterol sulfate [Ventolin HFA] 90 mcg/actuation HFA aerosol inhaler 2 puff inhalation QID PRN (Reason: shortness of breath or wheezing) Qty: 18 5RF atorvastatin 20 mg tablet 20 mg PO HS Qty: 90 3RF multivitamin [Daily Multi-Vitamin] Tablet 1 tab PO QAM Entresto 24-26 mg tablet 1 tab PO BID Qty: 180 3RF (DME) Oxygen Home Liters Per Minute See Rx Instructions .ROUTE .MEDSUPPLY Qty: 2 0RF Rx Instructions: 2 L/min via nasal cannula to be used with exertion and at night when sleeping spironolactone 25 mg tablet 25 mg PO QAM omeprazole 20 mg capsule,delayed release(DR/EC) 20 mg PO QAM alfuzosin [Uroxatral] 10 mg tablet extended release 24 hr 10 mg PO QPM Rx Instructions: administer after the same meal each day magnesium oxide 400 mg (241.3 mg magnesium) Tablet 400 mg PO QAM Qty: 30 0RF Rx Instructions: OTC Eliquis 5 mg tablet 5 mg PO BID Rx Instructions: TAKE 1 TABLET BY MOUTH TWICE A DAY Discharge Orders: Discharge Order (Routine); Ordered 03/23/23 Ordered By: Sangeetha Coto Admission Data Admit Date/Time: 03/20/23 19:05 Attending Provider: Sangeetha Coto Admit Provider: Flako Palencia Primary Care Provider: Juan Ramos Other Providers: Flako Palencia Other Interventions: Discharge Summary Assessment (RN) Last Done: 03/23/23 12:56 Coding Level of Care Code 95439 IN/OBS DISCH 30 MIN/LESS Diagnoses Acute respiratory failure with hypoxia J96.01 RSV infection B33.8 Hypotension I95.9 Hyponatremia E87.1 Generalized weakness R53.1 Permanent atrial fibrillation I48.21 Atrial fibrillation type: permanent Alcoholic cirrhosis of liver without ascites K70.30 Hepatic cirrhosis type: alcoholic cirrhosis Ascites presence: without ascites Positive blood culture R78.81 Arteriosclerotic coronary artery disease I25.10 PAD (peripheral artery disease) I73.9 Centrilobular emphysema J43.2 COPD type: emphysema Emphysema type: centrilobular BPH with obstruction/lower urinary tract symptoms N40.1; N13.8
== END 2023-03-23 16:26 | disposition home or self-care (01) | DRG 190 ==
LOC: ED 14:50 → SUATTDRO 19:05 → EDINP 19:05 → 2W 21:48

== ENCOUNTER 2023-04-29 17:21 | Inpatient (IN) ==
--- NOTE | 2023-04-29 17:38 | Emergency Department Note ---
Impression & Plan Acute dehydration, Generalized weakness, Hypotension, Acute kidney injury, Hypomagnesemia, Elevated troponin ED Provider Note NAME: KEESHA LEMON AGE: 82 SEX: M : 1940 ARRIVES VIA: Ambulance INFORMANT: Patient, ED PROVIDER(S): Raymond Walls MD CHIEF COMPLAINT: MEDICAL DECISION MAKING: Patient presents due to concern for possible syncope versus seizure. IV was established and blood work was obtained along with CT of the head chest x-ray and EKG. Patient was noted to be in A-fib and is currently anticoagulated. Patient did receive IV fluids in light of the patient's known history of CHF. The patient's weight is down and the patient was noted to be hypotensive upon arrival. The patient's blood work shows a virtually normal white count at the high end of normal at 10.1. Hemoglobin 11.5 which is at about his baseline. Platelet count is normal. Patient does have YANIRA with initial creatinine 1.6. Baseline is around 1 or less than 1. Magnesium low at 1.6. The patient was ordered this for repletion. The patient does have prerenal azotemia. Initial troponin 27. Likely demand. Patient does have A-fib. Patient denies any chest pains and does have shortness of breath but this is chronic and relatively unchanged per patient with regard to symptoms. Patient does have chronic shortness of breath but this is unchanged. Patient still persistently hypotensive to the patient was ordered a procalcitonin blood cultures and an empiric dose of antibiotics as a precaution. Bio fire negative. Patient's chest x-ray does not show any significant change and head CT is negative. Sounds as though the patient likely did not have a seizure given the patient's brief rigidity yhat was described and lack of postictal state, tongue biting or incontinence. Still a consideration but given the patient's YANIRA and persistent hypotension do believe the patient would benefit from inpatient treatment. I did speak to the on-call hospitalist Dr. Brenner and the patient was admitted to medicine service. Discussion w/ other healthcare providers: Dr. Brenner inpatient medicine service Prior /Outside records reviewed: I reviewed a most recent primary care visit from April 19, [address] Ramos. Patient recent admission to hospital for RSV chronic hypoxic respiratory failure with known history of CHF A-fib PAD and COPD with oxygen dependent. Differential diagnosis: Infection, dehydration, metabolic abnormality, hypo/hyperglycemia, electrolyte imbalance, anemia, UTI, pneumonia, thyroid dysfunction among others were considered. Diagnostics, as interpreted by me: ECG: A-fib, rate of 98, left axis deviation no obvious ST elevations. Cardiac monitoring: An order was placed for continuous cardiac monitoring. The monitor shows a rate of 95 with irregular irregular rhythm. Patient was placed on pulse oximetry Medical decision rules: None Imaging studies: I informally interpreted the patient's CT head which does not show obvious ICH with formal report to follow. I informally interpreted the patient's chest x-ray which does not show obvious pneumothorax with formal report to follow. HPI: History obtained from EMS per family as well as nursing report states that the patient had slid out of his chair and that the was having difficulty getting him up. No tongue biting or incontinence and the patient reportedly had no postictal period. During this time the patient was witnessed by a family member to get very rigid an episode of shaking and that this lasted approximately 30 seconds in duration. Patient states that he does suffer from chronic shortness of breath. The patient did have a recent hospitalization for RSV and that the patient is on chronic oxygen now. Patient states that he used to wear oxygen only at nighttime. He does have a known history of COPD last smoked approximate 30 years ago. Patient denies any abdominal pain nausea vomiting or diarrhea. Patient states that he has been declining over the last 2 months ever since he had his respiratory illness. Ears ago. Patient has had productive cough. Patient denies any leg swelling or calf pain. The patient has had decreased p.o. intake and appetite as well as weight loss. Patient does take Eliquis for known history of A-fib. PAST MEDICAL HISTORY: See Below PAST SURGICAL HISTORY: See Below SOCIAL HISTORY: See Below HOME MEDICATIONS: See Below ALLERGIES: See Below VITALS: See Below PHYSICAL EXAMINATION: GENERAL: NAD, non-toxic. Nasal cannula and mask in place. EYE EXAM: Normal conjunctiva. PERRL, no anisocoria and EOM's grossly intact w/o pain. OROPHARYNX: Moist mucus membranes, grossly normal dentition. NECK: Supple, no nuchal rigidity, no adenopathy, non-tender. No signs of meningismus. FROM of the neck with good chin to chest and neck extension. No stridor. LUNGS: Clear to auscultation. Normal chest wall mechanics. HEART: Irregular irregular, no MRG. ABDOMEN: Abdomen soft, non-tender, no masses, no rebound or guarding. BACK: No CVA TTP. SKIN: Lower extremity bruising noted that is scant without significant hematoma UPPER EXTREMITIES: Upper extremities are grossly normal. LOWER EXTREMITIES: Grossly normal, no edema. NEURO EXAM: A&O x3, cranial nerves II-XII grossly intact, normal speech, moves all 4 extremities. 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 Recommend 1 year follow up. Heart failure with mid-range ejection fraction Bradycardia Hematuria Chronic obstructive pulmonary disease History of tobacco use BPH with obstruction/lower urinary tract symptoms Diverticulosis SNHL (sensorineural hearing loss) Seasonal allergies Tinnitus GERD (gastroesophageal reflux disease) Atrial fibrillation Hypertension Hyperlipidemia Surgical History Hx of amputation of lesser toe (~07/2022) Osteomyelitis H/O mitral valve replacement 2016 Status post Mohs surgery left cheek, left arm (squamous cell) Status post anal fissurectomy History of colonoscopy History of tooth extraction History of tonsillectomy History of cardiac radiofrequency ablation History of cardiac cath 03/2015 > no stents Family History Father Family hx colonic polyps Mother Heart disease Other Hypertension No family history of adverse response to anesthesia Social History Smoking Status: Former smoker Tobacco Type: Cigarettes Age Started Using Tobacco: 17; Age Quit Using Tobacco: 62; packs per day: 2; Cigarettes Per Day: 2 packs; Second Hand Exposure: No; Do You Dip or Chew Tobacco: No; Hx Alcohol Use: Yes Alcohol type: beer Alcohol Intake Frequency: 2-3 x/Week Hx Substance Use: No Preferred Language: Omani Communication Ability: Effective Visual Impairment: Limited Hearing Ability: Normal Changeover Operator Required: No Beliefs That Will Affect Care: None marital status: Current Living Situation: Spouse Current Living Situation Comment: Home with current occupational status: retired Other Information That Helps Us Care for You: No Feels Safe at Home: Yes Safety Concerns: Feels Safe At This Time Childhood Exposure to Second-Hand Smoke: Yes Diet: regular Diet Comment: Educated to increase protein, vitamin c d and zinc caffeine: Yes during the past year weight has: decreased > 10 lbs Dental Care, Regularly: Yes Physical Activity Frequency: 1-2 Times per Week Physical Activity Frequency Comment: walks Seatbelt Use: always Sunscreen Use: Yes Do you think of yourself as: straight/heterosexual Assistive Devices: Denture - Upper, Glasses and Walker Allergies Allergies Allergy/AdvReac Type Severity Reaction Status Date / Time cephalexin [From Keflex] Allergy Hives Verified 04/19/23 10:23 Home Meds Home Medications Medication Instructions Recorded Confirmed multivitamin (Daily Multi-Vitamin 1 tab PO QAM 07/20/20 04/29/23 tablet) alfuzosin 10 mg tablet,extended 10 mg PO QPM 07/11/22 04/29/23 release 24 hr (Uroxatral) spironolactone 25 mg tablet 25 mg PO QAM 07/11/22 04/29/23 apixaban 5 mg tablet (Eliquis) 5 mg PO BID 03/20/23 04/29/23 omeprazole 20 mg capsule,delayed 20 mg PO DAILY 04/29/23 04/29/23 release Previous Rx's Medication Instructions Recorded Oxygen Home #2 L 10/14/21 magnesium oxide 400 mg (241.3 mg 400 mg PO QAM #30 tabs 01/14/22 magnesium) tablet metoprolol succinate 25 mg 12.5 mg (1/2 x 25 mg) PO QAM #45 09/26/22 tablet,extended release 24 hr tabs budesonide-formoterol HFA 160 2 puff inhalation BID #3 Inhalers 09/27/22 mcg-4.5 mcg/actuation aerosol inhaler (Symbicort) tiotropium bromide 2.5 2 puff inhalation QAM #3 Inhalers 10/05/22 mcg/actuation mist for inhalation (Spiriva Respimat) furosemide 40 mg tablet 40 mg PO DAILY PRN weight gain #90 01/12/23 tabs albuterol sulfate 90 mcg/actuation 2 puff inhalation QID PRN 02/07/23 aerosol inhaler (Ventolin HFA) shortness of breath or wheezing #18 grams atorvastatin 20 mg tablet 20 mg PO HS #90 tabs 03/08/23 sacubitril 24 mg-valsartan 26 mg 1 tab PO BID #180 tabs 04/27/23 tablet (Entresto) Results & Data (ED) Vital Signs Vital Signs - 24 hr 04/29/23 17:27 04/29/23 17:34 04/29/23 17:34 Temperature 36.4 C L Temperature Source Oral Pulse Rate 98 H 96 H 99 H Pulse Rate from SpO2 Sensor 93 H Respiratory Rate 18 24 Respiratory Effort / Characteristics Non-Labored Spontaneous Respiratory Depth Normal Respiratory Pattern Regular Blood Pressure 69/50 L 69/50 L Blood Pressure Mean 56 56 Blood Pressure Position Sitting Pulse Oximetry 96 97 Oxygen Delivery Method Nasal Cannula Nasal Cannula Oxygen Flow Rate 2 2 Sepsis Recent Fever Within 48 Hours No Sepsis New/Unexplained Change in Mental Status No Sepsis Action Taken by Nursing No Action Required 04/29/23 17:39 04/29/23 17:45 04/29/23 17:49 Temperature Temperature Source Pulse Rate 101 H Pulse Rate from SpO2 Sensor 100 H Respiratory Rate 25 H Respiratory Effort / Characteristics Respiratory Depth Respiratory Pattern Blood Pressure 74/48 L 88/48 L Blood Pressure Mean 52 61 Blood Pressure Position Pulse Oximetry 100 98 Oxygen Delivery Method Nasal Cannula Nasal Cannula Oxygen Flow Rate 2 2 Sepsis Recent Fever Within 48 Hours Sepsis New/Unexplained Change in Mental Status Sepsis Action Taken by Nursing 04/29/23 17:53 04/29/23 18:11 04/29/23 18:14 Temperature Temperature Source Pulse Rate 96 H 96 H 86 Pulse Rate from SpO2 Sensor 100 H 93 H Respiratory Rate 23 26 H 25 H Respiratory Effort / Characteristics Respiratory Depth Respiratory Pattern Blood Pressure 86/49 L 78/42 L 94/51 L Blood Pressure Mean 61 54 65 Blood Pressure Position Pulse Oximetry 100 100 Oxygen Delivery Method Nasal Cannula Nasal Cannula Oxygen Flow Rate 2 2 Sepsis Recent Fever Within 48 Hours Sepsis New/Unexplained Change in Mental Status Sepsis Action Taken by Nursing 04/29/23 18:15 04/29/23 18:24 04/29/23 18:30 Temperature Temperature Source Pulse Rate 96 H 96 H 90 Pulse Rate from SpO2 Sensor 96 H 94 H 93 H Respiratory Rate 24 25 H 22 Respiratory Effort / Characteristics Respiratory Depth Respiratory Pattern Blood Pressure 92/45 L 93/52 L 74/48 L Blood Pressure Mean 60 65 56 Blood Pressure Position Pulse Oximetry 100 99 98 Oxygen Delivery Method Nasal Cannula Nasal Cannula Nasal Cannula Oxygen Flow Rate 2 2 2 Sepsis Recent Fever Within 48 Hours Sepsis New/Unexplained Change in Mental Status Sepsis Action Taken by Nursing 04/29/23 18:45 04/29/23 18:51 04/29/23 19:00 Temperature Temperature Source Pulse Rate 82 98 H 82 Pulse Rate from SpO2 Sensor 94 H 96 H 90 Respiratory Rate 25 H 22 24 Respiratory Effort / Characteristics Respiratory Depth Respiratory Pattern Blood Pressure 90/53 L 78/47 L 66/39 L Blood Pressure Mean 65 57 48 Blood Pressure Position Pulse Oximetry 97 98 98 Oxygen Delivery Method Nasal Cannula Nasal Cannula Nasal Cannula Oxygen Flow Rate 2 2 2 Sepsis Recent Fever Within 48 Hours Sepsis New/Unexplained Change in Mental Status Sepsis Action Taken by Nursing 04/29/23 19:02 04/29/23 19:11 04/29/23 19:15 Temperature Temperature Source Pulse Rate 98 H 88 88 Pulse Rate from SpO2 Sensor Respiratory Rate 22 24 19 Respiratory Effort / Characteristics Respiratory Depth Respiratory Pattern Blood Pressure 76/55 L 95/60 L 94/59 L Blood Pressure Mean 62 71 70 Blood Pressure Position Pulse Oximetry 100 100 Oxygen Delivery Method Nasal Cannula Nasal Cannula Oxygen Flow Rate 2 2 Sepsis Recent Fever Within 48 Hours Sepsis New/Unexplained Change in Mental Status Sepsis Action Taken by Nursing 04/29/23 19:20 04/29/23 19:30 04/29/23 19:40 Temperature Temperature Source Pulse Rate 85 100 H 92 H Pulse Rate from SpO2 Sensor Respiratory Rate 25 H 25 H 22 Respiratory Effort / Characteristics Respiratory Depth Respiratory Pattern Blood Pressure 94/50 L 90/48 L 100/57 L Blood Pressure Mean 64 62 71 Blood Pressure Position Pulse Oximetry 99 Oxygen Delivery Method Nasal Cannula Oxygen Flow Rate 2 Sepsis Recent Fever Within 48 Hours Sepsis New/Unexplained Change in Mental Status Sepsis Action Taken by Nursing 04/29/23 19:50 04/29/23 19:50 04/29/23 20:00 Temperature Temperature Source Pulse Rate 96 H 95 H Pulse Rate from SpO2 Sensor Respiratory Rate 27 H 23 Respiratory Effort / Characteristics Respiratory Depth Respiratory Pattern Blood Pressure 103/58 L 95/41 L Blood Pressure Mean 73 59 Blood Pressure Position Pulse Oximetry 95 95 Oxygen Delivery Method Nasal Cannula Nasal Cannula Oxygen Flow Rate 2 2 Sepsis Recent Fever Within 48 Hours Sepsis New/Unexplained Change in Mental Status Sepsis Action Taken by Nursing 04/29/23 20:10 Temperature Temperature Source Pulse Rate 90 Pulse Rate from SpO2 Sensor Respiratory Rate 22 Respiratory Effort / Characteristics Respiratory Depth Respiratory Pattern Blood Pressure 89/61 L Blood Pressure Mean 70 Blood Pressure Position Pulse Oximetry Oxygen Delivery Method Oxygen Flow Rate Sepsis Recent Fever Within 48 Hours Sepsis New/Unexplained Change in Mental Status Sepsis Action Taken by [facility] Medications Current Medication List: was personally reviewed by me Laboratory Data Attestation: I reviewed the patient's lab results. 04/29/23 17:26 04/29/23 20:16 Lab Results 04/29/23 04/29/23 Range/Units 17:26 20:16 WBC 10.81 H (4.8-10.8) K/ul RBC 4.03 L (4.70-6.10) M/uL Hgb 11.5 L (14.0-18.0) g/dl Hct 36.7 L (42.0-52.0) % MCV 91.1 (80.0-100.0) fL MCH 28.5 (25.0-34.0) pg MCHC 31.3 L (32.0-36.0) g/dL RDW Std Deviation 46.1 (36.4-46.3) fL RDW Coeff of [place] 13.8 (11.5-14.5) % Plt Count 229 (130-400) K/uL MPV 11.0 (9.4-12.4) fL Immature Gran % (Auto) 0.6 % Neut % (Auto) 84.5 % Lymph % (Auto) 5.1 % [place] % (Auto) 8.9 % Eos % (Auto) 0.6 % Baso % (Auto) 0.3 % Neut # (Auto) 9.13 H (1.40-6.50) K/uL Lymph # (Auto) 0.55 L (1.20-3.40) K/uL [place] # (Auto) 0.96 H (0.11-0.59) K/uL Eos # (Auto) 0.07 (0.00-0.50) K/uL Baso # (Auto) 0.03 (0.00-0.20) K/uL Immature Gran # (Auto) 0.07 (0.01-0.20) K/uL PT 13.0 H (9.0-12.0) Seconds INR 1.2 H (0.9-1.1) Sodium 130 L (136-145) mmol/L Potassium 5.3 H 4.8 (3.5-5.1) mmol/L Chloride 92 L (98-107) mmol/L Carbon Dioxide 30 (21-32) mmol/L Anion Gap 8 (3-11) BUN 38 H (6-23) mg/dl Creatinine 1.62 H (0.6-1.4) mg/dl Est Cr Clr Drug Dosing 33.9 ml/min Est GFR ( Amer) 45.8 ml/min Est GFR (Non-Af Amer) 39.5 ml/min BUN/Creatinine Ratio 23.5 H (10-20) Glucose 118 H (70-99(Fasting)) mg/dl Calcium 9.2 (8.6-10.3) mg/dl Magnesium 1.6 L (1.7-2.4) mg/dl Total Bilirubin 0.8 (0.2-1.0) mg/dl AST 22 (13-39) U/L ALT 15 (7-52) U/L Alkaline Phosphatase 104 (34-104) U/L Troponin I High Sens 27.1 H 22.7 H (0-20) pg/ml Total Protein 6.0 (6.0-8.3) gm/dl Albumin 3.2 L (3.4-5.0) gm/dl Globulin 2.8 (2.5-4.0) gm/dl Albumin/Globulin Ratio 1.1 (0.9-2) Procalcitonin < 0.05 (0-0.5) ng/ml TSH 2.816 (0.300-4.500) uIu/ml Adenovirus (PCR) Not Detected (NotDetected) B. pertussis DNA (PCR) Not Detected (NotDetected) B.parapertussis DNA PCR Not Detected (NotDetected) C. pneumoniae DNA (PCR) Not Detected (NotDetected) Coronavirus OC43 (PCR) Not Detected (NotDetected) Coronavirus HKU1 (PCR) Not Detected (NotDetected) Coronavirus 229E (PCR) Not Detected (NotDetected) SARS-CoV-2 (PCR) Not Detected (NotDetected) Coronavirus NL63 (PCR) Not Detected (NotDetected) Human Metapneumovir PCR Not Detected (NotDetected) Influenza Type A (PCR) Not Detected (NotDetected) Influenza Type B (PCR) Not Detected (NotDetected) M. pneumoniae (PCR) Not Detected (NotDetected) Parainfluenza 1 (PCR) Not Detected (NotDetected) Parainfluenza 2 (PCR) Not Detected (NotDetected) Parainfluenza 3 (PCR) Not Detected (NotDetected) Parainfluenza 4 (PCR) Not Detected (NotDetected) RSV (PCR) Not Detected (NotDetected) Entero/Rhino (PCR) Not Detected (NotDetected) Administered Medications Lactated Ringer's (Lr) 1,000 mls @ 80 mls/hr IV .[id number] FABIANA Stop: 04/30/23 09:59 Last Admin: 04/29/23 23:01 Dose: 80 mls/hr Documented By: DIGNA Discontinued Medications Sodium Chloride (Nss) 1,000 mls @ 999 mls/hr IV .Q1H1M FABIANA Stop: 04/29/23 18:45 Last Infusion: 04/29/23 19:04 Dose: Infused Documented By: Admin: 04/29/23 17:48 Dose: 999 mls/hr Documented By: ARBEN Sodium Chloride (Nss) 500 mls @ 999 mls/hr IV .Q31M ONE Stop: 04/29/23 19:37 Last Infusion: 04/29/23 19:41 Dose: Infused Documented By: Admin: 04/29/23 19:09 Dose: 999 mls/hr Documented By: ANNEL Piperacillin Sod/Tazobactam (Sod 4.5 gm/ Dextrose) 100 mls @ 200 mls/hr IV NOW ONE; Protocol Stop: 04/29/23 19:38 Last Infusion: 04/29/23 23:01 Dose: Infused Documented By: Admin: 04/29/23 22:31 Dose: 200 mls/hr Documented By: LSG Lactated Ringer's (Lr) 1,000 mls @ 999 mls/hr IV .Q1H1M ONE Stop: 04/29/23 21:08 Last Infusion: 04/29/23 21:43 Dose: Infused Documented By: Admin: 04/29/23 20:23 Dose: 999 mls/hr Documented By: CPB Magnesium Oxide (Magnesium Oxide 400 Mg Tab) 800 mg PO NOW STA Stop: 04/29/23 19:08 Last Admin: 04/29/23 20:23 Dose: 800 mg Documented By: CPB Imaging Data Radiologist's Impression: Chest X-Ray 04/29/23 17:45 XR chest 1V portable HISTORY: weakness COMPARISON: Chest 04/13/2023. FINDINGS: No pneumothorax. The heart remains enlarged. There is a cardiac valve prosthesis again noted. Emphysema and chronic interstitial thickening persists. No acute fractures identified. There are calcifications in the aortic knob. The lungs remain hyperexpanded. IMPRESSION: No significant change compared to the prior study. Emphysema and chronic interstitial thickening again noted. ACT 112: Negative or not required by law. Electronically signed by: Bryan Vee M.D. 04/29/2023 7:[address] 04/29/23 17:[address] DOSE: 625.8 mGy.cm HISTORY: Possible seizure. ?shaking episode TECHNIQUE: Multiaxial CT images of the head were performed without the use of intravenous contrast. Automated exposure control was utilized for this study. A dose lowering technique was utilized adhering to the principles of ALARA. Comparison: Head CT 02/10/2020. Findings: The paranasal sinuses and mastoid air cells are clear. The calvarium and skull base are intact. There is no mass, hematoma, midline shift, acute infarct. White matter hypodensity is nonspecific but suggestive of microvascular ischemic change. The ventricles and sulci demonstrate mild age-related involutional changes. Impression: No acute intracranial abnormality. ACT 112: Negative or not required by law. Electronically signed by: Bryan Vee M.D. 04/29/2023 6:18 PM Discharge Plan Visit Data Chief Complaint: Seizure Stated Complaint: [facility]NC[facility] ED Provider: Titi,Raymond D. Discharge Problem: Acute dehydration, Generalized weakness, Hypotension, Acute kidney injury, Hypomagnesemia, Elevated troponin Patient Disposition: Admitted As Inpatient Discharge Instructions Interventions: ED Discharge Assessment Last Done: 04/29/23 21:42 Discharge Problem: Hypotension Qualifiers: Hypotension type: unspecified hypotension type Qualified Code(s): I95.9 - Hypotension, unspecified
[2023-04-29] MEDS ORDERED: SODIUM CHLORIDE 0.9% 1,000 ML IV SCH (17:45)
[2023-04-29 18:00] LABS: Basophils # (auto) 0.03 K/uL (0.00-0.20); Basophils % (auto) 0.3 %; Eosinophils # (auto) 0.07 K/uL (0.00-0.50); Eosinophils % (auto) 0.6 %; Hematocrit (blood only) 36.7 % (42.0-52.0); Hemoglobin 11.5 g/dl (14.0-18.0); Immature Granulocytes # (auto) 0.07 K/uL (0.01-0.20); Immature Granulocytes % (auto) 0.6 %; Lymphocytes # (auto) 0.55 K/uL (1.20-3.40); Lymphocytes % (auto) 5.1 %; Mean Corpuscular Hemoglobin 28.5 pg (25.0-34.0); Mean Corpuscular Hgb Conc 31.3 g/dL (32.0-36.0); Mean Corpuscular Volume 91.1 fL (80.0-100.0); Monocytes # (auto) 0.96 K/uL (0.11-0.59); Monocytes % (auto) 8.9 %; Neutrophils # (auto) 9.13 K/uL (1.40-6.50); Neutrophils % (auto) 84.5 %; Platelet Count 229 K/uL (130-400); RDW Coefficient of Variation 13.8 % (11.5-14.5); RDW Standard Deviation 46.1 fL (36.4-46.3); Red Blood Count 4.03 M/uL (4.70-6.10); White Blood Count 10.81 K/ul (4.8-10.8)
[2023-04-29 18:07] LABS: Albumin Globulin Ratio 1.1 (0.9-2); Albumin Level 3.2 gm/dl (3.4-5.0); BUN Creatinine Ratio 23.5 (10-20); Bilirubin,Total 0.8 mg/dl (0.2-1.0); Calcium 9.2 mg/dl (8.6-10.3); Creatinine Clr Calc Pharmacy 33.9 ml/min; Est GFR (African American) 45.8 ml/min; Est GFR (Non-African American) 39.5 ml/min; Globulin 2.8 gm/dl (2.5-4.0); Magnesium 1.6 mg/dl (1.7-2.4); Potassium 5.3 mmol/L (3.5-5.1)
[2023-04-29 18:13] LABS: Troponin I High Sensitivity 27.1 pg/ml (0-20)
--- NOTE | 2023-04-29 18:20 | CT Scan Report ---
HEAD CT NONCONTRAST CT DOSE: 625.8 mGy.cm HISTORY: Possible seizure. ?shaking episode TECHNIQUE: Multiaxial CT images of the head were performed without the use of intravenous contrast. A utomated exposure control was utilized for this study. A dose lowering technique was utilized adheri ng to the principles of ALARA. Comparison: Head CT 02/10/2020. Findings: The paranasal sinuses and mastoid air cells are clear. The calvarium and skull base are int act. There is no mass, hematoma, midline shift, acute infarct. White matter hypodensity is nonspecifi c but suggestive of microvascular ischemic change. The ventricles and sulci demonstrate mild age-rela brennan involutional changes. Impression: No acute intracranial abnormality. ACT 112: Negative or not required by law. Electronically signed by: Bryan Vee M.D. 04/29/2023 6:18 PM
[2023-04-29 18:22] LABS: Thyroid Stimulating Hormone 2.816 uIu/ml (0.300-4.500)
[2023-04-29 18:46] LABS: INR 1.2 (0.9-1.1)
[2023-04-29 19:01] LABS: Adenovirus PCR Not Detected (NotDetected); Bordetella parapertussis PCR Not Detected (NotDetected); Bordetella pertussis PCR Not Detected (NotDetected); Chlamydia pneumoniae PCR Not Detected (NotDetected); Coronavirus 229E PCR Not Detected (NotDetected); Coronavirus CoV-2 (COVID19)PCR Not Detected (NotDetected); Coronavirus HKU1 PCR Not Detected (NotDetected); Coronavirus NL63 PCR Not Detected (NotDetected); Coronavirus OC43PCR Not Detected (NotDetected); Human Metapneumovirus PCR Not Detected (NotDetected); Influenza A PCR Not Detected (NotDetected); Influenza B PCR Not Detected (NotDetected); Mycoplasma pneumoniae PCR Not Detected (NotDetected); Parainfluenza Virus 1 PCR Not Detected (NotDetected); Parainfluenza Virus 2 PCR Not Detected (NotDetected); Parainfluenza Virus 3 PCR Not Detected (NotDetected); Parainfluenza Virus 4 PCR Not Detected (NotDetected); Respiratory Syncytial VirusPCR Not Detected (NotDetected); Rhinovirus/Enterovirus PCR Not Detected (NotDetected)
[2023-04-29] MEDS ORDERED: SODIUM CHLORIDE 0.9% 500 ML IV ONE (19:07)
[2023-04-29] MEDS ORDERED: MAGNESIUM OXIDE 400 MG TAB PO STA (19:07)
[2023-04-29] MEDS ORDERED: PIPERACILLIN/TAZOBACTAM 4.5 GM in DEXTROSE 5% MINI-B 100 ML IV ONE (19:09)
--- NOTE | 2023-04-29 19:16 | XRay Report ---
XR chest 1V portable HISTORY: weakness COMPARISON: Chest 04/13/2023. FINDINGS: No pneumothorax. The heart remains enlarged. There is a cardiac valve prosthesis again note d. Emphysema and chronic interstitial thickening persists. No acute fractures identified. There are c alcifications in the aortic knob. The lungs remain hyperexpanded. IMPRESSION: No significant change compared to the prior study. Emphysema and chronic interstitial thickening agai n noted. ACT 112: Negative or not required by law. Electronically signed by: Bryan Vee M.D. 04/29/2023 7:14 PM
--- NOTE | 2023-04-29 19:42 | History & Physical Report ---
Date of Service April 29, 2023 Assessment & Plan (1) Alteration consciousness: Plan: -Admit to the PCU on tele and pulse oximetry -Currently hemodynamically stable and stable on his baseline 2L NC -Presented to the ED via EMS after experiencing an alteration in mental status shortly after his son lifted him up off the ground after sliding off his recliner -Episode was approximately 30 seconds, no loss of bowel or bladder, CT of the head/brain was negative for acute findings -At this time the patient's alteration in consciousness is most consistent with an episode of orthostatic hypotension after being raised off the ground -He is alert/oriented and without acute neurologic symptoms on exam -Will obtain prolactin level for further evaluation -Fall precautions ordered -Q4H neuro checks -Continue home Eliquis for DVT PPX -HH diet -AM CBC, (2) Hypotension: Plan: -Noted to be hypotensive at 69/50 on arrival -He is significantly dehydrated on exam and reports poor oral intake with continued use of his home metoprolol, spironolactone, Entresto, and alfuzosin -Patient has also been on multiple courses of oral Prednisone recently, cannot rule out adrenal insufficiency at this time -He is currently stable with BP of 95/41 at the time of exam -Lactate and random cortisol were ordered on admission and are in process -Has received 1.5 L NSS in the ED, we will give 1L LR bolus on admission to complete his sepsis bolus of 2.3L -If he does not respond to fluid resuscitation will start stress dose steroids -Was ordered a dose of Zosyn prior to admission, will continue empiric zosyn for now until the rest of his infectious workup is back -Will hold Entresto, diuretics, and alfuzosin for now, continue metoprolol with his hx of afib (3) Acute kidney injury: Plan: -Cr today is 1.6, baseline is near 0.8 -At this time it appears that his YANIRA is pre-renal due to significant dehydration -Will follow UA when obtained and order renal US to monitor for obstruction -Will give 1L LR on admission and give 80 mL/hr of LR after x 1 bag overnight -Monitor renal function and electrolytes daily -Avoid nephrotoxic agents (4) Leukocytosis: Plan: -Patient noted to have a leukocytosis of 10 with neutrophil predominance of 9 -Could be related to his recent courses of prednisone but cannot rule out infection with his hypotension on arrival -He denies abdominal symptoms, diarrhea, urinary symptoms -Does have a small pressure ulcer on the right buttocks but this does not appear infected at this time -His most likely source is his continued pulmonary symptoms with increased green sputum production -Completed a course of Ciprofloxacin for possible Klebsiella tracheobronchitis -Sputum culture from last admission grew pansensitive Klebsiella -Will continue zosyn for now -Follow blood and sputum cultures -Will follow UA once obtained (5) Hyponatremia: Plan: -Sodium at 130 today -Has been in the low 130's since last admission in March 2023 -Could be multifactorial as he has had poor oral intake since last admission but could also be a component of SIADH with his recent admissions and illness -He is very dehydrated on exam today -Continue IV fluid hydration overnight -If still not stable tomorrow would recommend ongoing workup and possible initiation of NaCl tabs prior to discharge -Monitor daily electrolytes (6) Elevated troponin: Plan: -Initial high sen trop elevated at 27 ---> 22 on 2 hour repeat -Patient is without chest pain or acute ST segment/T-wave changes on ECG -Likely due to demand with hypotension, possible infection, and YANIRA -Continue to monitor on tele (7) Chronic obstructive pulmonary disease: Plan: -Patient is stable on his baseline O2 requirements, do not think that he is experiencing a COPD exacerbation at this time -Continue Zosyn for now to cover recent Klebsiella tracheobronchitis -Continue incentive spirometry, flutter therapy, and QIDR duonebs -Prn O2 to keep SpO2 between 89-92% -Will consult Pulmonology to follow with his ongoing respiratory issues -Follow sputum culture (8) Hypomagnesemia: Plan: -Noted to be 1.6 on arrival -Likely due to poor oral intake since last admission -S/P 800 mg PO Mag in the ED -Will hold further mag overnight with his YANIRA -Continue home PO mag tomorrow and monitor daily mag level -Monitor on tele for now (9) Chronic hypoxemic respiratory failure: Plan: -Currently stable on his baseline (10) Generalized weakness: Plan: -Likely multifactorial including deconditioning, dehydration, and possible infection -Continue hydration and antibiotics -PT/OT consults ordered -Fall precuations -Follow random cortisol level (11) Hyperkalemia: Plan: -Resolved -Was noted to be 5.3 in the ED -Likely due to his YANIRA and continued spironolactone use -Repeat potassium on admission is WNL -Monitor daily electrolytes -Holding spironolactone for now with hypotension and YANIRA -Continue to monitor on tele (12) Pressure ulcer: Plan: -Patient notes recent small pressure ulcer on his buttocks with recent weakness and inactivity -Patient noted to have signs of skin breakdown on his sacrum with a small, non- infected pressure ulcer on the right buttocks -Will consult wound care nurse -Turn and position q2h, low air loss bed ordered Plan The patient was discussed with Dr. Brenner at the time of the admission History of Present Illness Chief Complaint: Seizure-like activity Primary Care Provider: Juan Ramos DO Gil is an 82 year old male with a PMH significant for COPD on 2L NC HS/prn, alcoholic cirrhosis, aifb on Elqiuis, PAD, and BPH who presented to the [facility] ED via EMS on 04/29/23 after possible syncopal/seizure-like episode at home. He was noted to be hypotensive at 69/50 and tachycardic at 98 but otherwise stable. Labs were significant for a leukocytosis of 10.8 with neutrophil predominance of 9.13, lymphocyte count of 0.55, cr of 1.62 (baseline is near 0.8), BUN of 38, sodium of 130 (has been near 130 since 03/2023), chloride of 92, potassium of 5.3, mag of 1.6, initial high sen trop of 27, and full respiratory biofire negative. CT of the head/brain wo con was read as no acute findings. Chest xray was read as "No significant change compared to the prior study. Emphysema and chronic interstitial thickening again noted.". Prior to admission the patient was given 1.5L NSS, 800 mg PO Magnesium, and ordered a dose of zosyn. At the time of the exam the patient was lying in bed in no acute distress. He states that since his last admission in March his respiratory status has not improved and he has been getting progressively more weak. He states that he completed the antibiotics and steroids on discharge. He also confirms that he completed the recent course of Prednisone prescribed by Pulmonology after his clinic visit on 04/13/23. His oral intake has been poor since his last discharge. He has been taking his Eliquis, metoprolol, Entresto, and Spironolactone as prescribed but has not needed to take his prn Lasix as he has been without LE swelling. This am he woke and felt weak. His tried to help him sit on a leather recliner in their living room. He states that he did not sit far enough back and slid off the front of the recliner, landing on his buttocks. He denies losing consciousness or hitting his head. He was too weak to get up on his own so his Son and Daughter came over. His son lifted him up and sat him on the recliner. Shortly after he states that he had an episode were he momentarily lost his awareness. He states that his BL vision darkened over this time but he did not lose consciousness. He denies losing control of his bowel or bladder and was quickly back to his normal cognitive state after the episode. His family called EMS due to the alteration in cognition. He states that he has been bringing up large amounts of green sputum since last discharge. He denies other neurologic events or symptoms, chest pain, increased O2 needs, abd pain, nausea, vomiting, diarrhea, dysuria, hematuria, and LE swelling. He confirms he is still a DNR/DNI. Please refer to Dr. Brenner's attestation for any changes to the treatment plan Allergies Allergy/AdvReac Type Severity Reaction Status Date / Time cephalexin [From [facility]] Allergy Hives Verified 04/19/23 10:23 Home Medications Medication Instructions Recorded Confirmed Type multivitamin (Daily Multi-Vitamin 1 tab PO QAM 07/20/20 04/29/23 History tablet) Oxygen Home #2 L 10/14/21 04/29/23 Rx magnesium oxide 400 mg (241.3 mg 400 mg PO QAM #30 tabs 01/14/22 04/29/23 Rx magnesium) tablet alfuzosin 10 mg tablet,extended 10 mg PO QPM 07/11/22 04/29/23 History release 24 hr (Uroxatral) spironolactone 25 mg tablet 25 mg PO QAM 07/11/22 04/29/23 History metoprolol succinate 25 mg 12.5 mg (1/2 x 25 mg) PO QAM #45 09/26/22 04/29/23 Rx tablet,extended release 24 hr tabs budesonide-formoterol HFA 160 2 puff inhalation BID #3 Inhalers 09/27/22 04/29/23 Rx mcg-4.5 mcg/actuation aerosol inhaler (Symbicort) tiotropium bromide 2.5 2 puff inhalation QAM #3 Inhalers 10/05/22 04/29/23 Rx mcg/actuation mist for inhalation (Spiriva Respimat) furosemide 40 mg tablet 40 mg PO DAILY PRN weight gain #90 01/12/23 04/29/23 Rx tabs albuterol sulfate 90 mcg/actuation 2 puff inhalation QID PRN 02/07/23 04/29/23 Rx aerosol inhaler (Ventolin HFA) shortness of breath or wheezing #18 grams atorvastatin 20 mg tablet 20 mg PO HS #90 tabs 03/08/23 04/29/23 Rx apixaban 5 mg tablet (Eliquis) 5 mg PO BID 03/20/23 04/29/23 History sacubitril 24 mg-valsartan 26 mg 1 tab PO BID #180 tabs 04/27/23 04/29/23 Rx tablet (Entresto) omeprazole 20 mg capsule,delayed 20 mg PO DAILY 04/29/23 04/29/23 History release Past Med/Surg History Medical History Low blood pressure reading Anemia Chronic hypoxemic respiratory failure Hypoxia Right lower lobe pneumonia 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 Recommend 1 year follow up. Heart failure with mid-range ejection fraction Bradycardia Hematuria Chronic obstructive pulmonary disease History of tobacco use BPH with obstruction/lower urinary tract symptoms Diverticulosis SNHL (sensorineural hearing loss) Seasonal allergies Tinnitus GERD (gastroesophageal reflux disease) Atrial fibrillation Hypertension Hyperlipidemia Surgical History Hx of amputation of lesser toe (~07/2022) Osteomyelitis H/O mitral valve replacement 2016 Status post Mohs surgery left cheek, left arm (squamous cell) Status post anal fissurectomy History of colonoscopy History of tooth extraction History of tonsillectomy History of cardiac radiofrequency ablation History of cardiac cath 03/2015 > no stents Family History Father Family hx colonic polyps Mother Heart disease Other Hypertension No family history of adverse response to anesthesia Social History Smoking Status: Former smoker Tobacco Type: Cigarettes Age Started Using Tobacco: 17; Age Quit Using Tobacco: 62; packs per day: 2; Cigarettes Per Day: 2 packs; Second Hand Exposure: No; Do You Dip or Chew Tobacco: No; Hx Alcohol Use: Yes Alcohol type: beer Alcohol Intake Frequency: 2-3 x/Week Hx Substance Use: No Preferred Language: Tajik Communication Ability: Effective Visual Impairment: Limited Hearing Ability: Normal Warp Yarn Sorter Required: No Beliefs That Will Affect Care: None marital status: Current Living Situation: Spouse current occupational status: retired Feels Safe at Home: Yes Childhood Exposure to Second-Hand Smoke: Yes Diet: regular Diet Comment: Educated to increase protein, vitamin c d and zinc caffeine: Yes during the past year weight has: decreased > 10 lbs Dental Care, Regularly: Yes Physical Activity Frequency: 1-2 Times per Week Physical Activity Frequency Comment: walks Seatbelt Use: always Sunscreen Use: Yes Do you think of yourself as: straight/heterosexual Assistive Devices: Other Physical Exam Physical Exam: Physical Exam: General: In no acute distress, stated age, chronically ill-appearing but non- toxic HEENT: Normocephalic, atraumatic, no scleral icterus, pupils around round, symmetrical, and reactive to light, dry mucus membranes, trachea midline, no thyromegaly Chest/Pulm: No respiratory distress, symmetrical chest expansion, scattered rhonchi and wheezing Cardiac: irregular rate and rhythm, no murmurs noted Abdomen: Negative for ascites and bruising, normoactive bowel sounds, soft, non-tender to palpation throughout Musculoskeletal: Symmetrical and without signs of acute trauma, upper and lower extremities with full ROM, no atrophy, spasticity, or flaccidity Extremities: Radial, dorsalis pedis, and posterior tibial pulses are intact and symmetrical, no edema noted in the BL LE's Skin: Signs of skin breakdown on the sacrum with small pressure ulcer on the right buttocks, without signs of infection Neuro: Alert and oriented to person, place, month, year, and president, no focal defects, CN II-XII tested and intact, finger to nose test negative, no tremors noted Psych: No acute distress, calm and cooperative during the exam Results & Data Results & Data Vital Signs (Past 12 Hours) Vital Signs Temp Pulse Resp BP Pulse Ox O2 Del Method O2 Flow Rate 04/29/23 17:49 98 Nasal Cannula 2 04/29/23 17:34 96 H 04/29/23 17:27 36.4 C L 98 H 18 69/50 L 96 Nasal Cannula 2 Laboratory Results Abnormal lab results 04/29/23 Range/Units 17:26 WBC 10.81 H (4.8-10.8) K/ul RBC 4.03 L (4.70-6.10) M/uL Hgb 11.5 L (14.0-18.0) g/dl Hct 36.7 L (42.0-52.0) % MCHC 31.3 L (32.0-36.0) g/dL Neut # (Auto) 9.13 H (1.40-6.50) K/uL Lymph # (Auto) 0.55 L (1.20-3.40) K/uL [place] # (Auto) 0.96 H (0.11-0.59) K/uL PT 13.0 H (9.0-12.0) Seconds INR 1.2 H (0.9-1.1) Sodium 130 L (136-145) mmol/L Potassium 5.3 H (3.5-5.1) mmol/L Chloride 92 L (98-107) mmol/L BUN 38 H (6-23) mg/dl Creatinine 1.62 H (0.6-1.4) mg/dl BUN/Creatinine Ratio 23.5 H (10-20) Glucose 118 H (70-99(Fasting)) mg/dl Magnesium 1.6 L (1.7-2.4) mg/dl Troponin I High Sens 27.1 H (0-20) pg/ml Albumin 3.2 L (3.4-5.0) gm/dl Diagnostic Findings Chest X-Ray 04/29/23 17:45 XR chest 1V portable HISTORY: weakness COMPARISON: Chest 04/13/2023. FINDINGS: No pneumothorax. The heart remains enlarged. There is a cardiac valve prosthesis again noted. Emphysema and chronic interstitial thickening persists. No acute fractures identified. There are calcifications in the aortic knob. The lungs remain hyperexpanded. IMPRESSION: No significant change compared to the prior study. Emphysema and chronic interstitial thickening again noted. ACT 112: Negative or not required by law. Electronically signed by: Bryan Vee M.D. 04/29/2023 7:[address] 04/29/23 17:[address] DOSE: 625.8 mGy.cm HISTORY: Possible seizure. ?shaking episode TECHNIQUE: Multiaxial CT images of the head were performed without the use of intravenous contrast. Automated exposure control was utilized for this study. A dose lowering technique was utilized adhering to the principles of ALARA. Comparison: Head CT 02/10/2020. Findings: The paranasal sinuses and mastoid air cells are clear. The calvarium and skull base are intact. There is no mass, hematoma, midline shift, acute infarct. White matter hypodensity is nonspecific but suggestive of microvascular ischemic change. The ventricles and sulci demonstrate mild age-related involutional changes. Impression: No acute intracranial abnormality. ACT 112: Negative or not required by law. Electronically signed by: Bryan Vee M.D. 04/29/2023 6:18 PM ECG Additional Comments: Atrial fibrillation Non-specific intra-ventricular conduction delay Nonspecific ST and T wave abnormality Prolonged QT Abnormal ECG When compared with ECG of 21-MAR-2023 10:48, QRS axis Shifted left Criteria for Anteroseptal infarct are no longer Present Code Status & VTE Plan Code Status DNR/DNI VTE Prophylaxis Plan VTE Prophylaxis will be ordered: Yes Supervising Physician Co-Signing Physician Notes Patient seen and examined, chart reviewed, case discussed with ANANDA Szymanski and I agree with the assessment and plan as above. In brief, patient is an 82yo male with history of COPD, Cirrhosis, AF and PAD presenting with syncopal event, possible seizure - AMS which occurred after his son lifted him up. Patient hypotensive on arrival with BP of 69/50 which improved after IVF. On exam he is resting comfortably in bed, NAD, chronically ill in appearance Skin - scattered bruising HEENT -NC/AT, PERRL, dry mucus membranes Heart - +S1/S2, irregularly irregular, no m/r/g Lungs - CTA, faint crackles in bilateral bases, no wheezes or rhonchi Abd - +BS, soft, NT/ND Ext - warm, well perfused, 2+ pulses, no edema Labs and images reviewed. WBC=10.8 Ch=554, K=5.3, BUN=38, Cr=1.62 Assessment/plan Syncope, hypotensive on arrival Lab findings suggestive of volume depletion. Could also consider adrenal insufficiency given low Na, high K, low random cortisol at 9 -Continue with IVF -If patient fails to improve or becomes hypotensive again would initiate stress steroids -Remainder as above PG Care Time/CCT Total # of Minutes Spent Total Time Spent with Patient: Total time spent is greater than 50% in coordination of care (as documented) at patient's floor/unit and/or counseling patient: Coding [place] [address] INT INP/OBS CARE 3/75MIN Patient Type Established Medical Decision Making High Complexity Diagnoses Alteration consciousness R40.4 Hypotension I95.9 Acute kidney injury N17.9 Leukocytosis D72.829 Hyponatremia E87.1 Elevated troponin R77.8 Centrilobular emphysema J43.2 COPD type: emphysema Emphysema type: centrilobular Hypomagnesemia E83.42 Chronic hypoxemic respiratory failure J96.11 Generalized weakness R53.1 Hyperkalemia E87.5 Pressure ulcer L89.90 (7) Chronic obstructive pulmonary disease COPD type: emphysema Emphysema type: centrilobular Qualified Code(s): J43.2 - Centrilobular emphysema
[2023-04-29] MEDS ORDERED: LACTATED RINGER'S 1,000 ML IV ONE (20:08)
[2023-04-29 21:10] LABS: Potassium 4.8 mmol/L (3.5-5.1)
[2023-04-29 21:17] LABS: Troponin I High Sensitivity 22.7 pg/ml (0-20)
[2023-04-29 21:22] LABS: Cortisol Random 9.02 mcg/dl
[2023-04-29] MEDS ORDERED: LACTATED RINGER'S 1,000 ML IV SCH (21:30)
[2023-04-29 21:31] LABS: Prolactin 12.17 ng/ml
[2023-04-29] MEDS ORDERED: ACETAMINOPHEN 325 MG TAB PO PRN (21:53)
[2023-04-29] MEDS ORDERED: Nursing to Pharmacy Communication SCH (23:30)
[2023-04-30 01:31] LABS: Appearance Urine Cloudy (Clear); Bacteria Urine Automated Negative (Negative); Blood Urine Negative (Negative); Color Urine Dark Yellow; Glucose Urine UA Negative (Negative); Ketones Urine Trace (Negative); Leukocyte Esterase Urine Trace (Negative); Nitrite Urine Negative (Negative); Protein Urine Trace (Negative); Specific Gravity Urine 1.021 (1.000-1.030); Urobilinogen Urine Negative (Negative); pH Urine 6.5 (4.5-7.5)
[2023-04-30 01:33] LABS: Bilirubin Urine 1+ (Negative)
[2023-04-30 05:56] LABS: Basophils # (auto) 0.02 K/uL (0.00-0.20); Basophils % (auto) 0.3 %; Eosinophils # (auto) 0.12 K/uL (0.00-0.50); Hematocrit (blood only) 32.1 % (42.0-52.0); Immature Granulocytes # (auto) 0.04 K/uL (0.01-0.20); Immature Granulocytes % (auto) 0.7 %; Lymphocytes # (auto) 0.46 K/uL (1.20-3.40); Lymphocytes % (auto) 7.8 %; Mean Corpuscular Hemoglobin 28.7 pg (25.0-34.0); Mean Corpuscular Hgb Conc 31.2 g/dL (32.0-36.0); Mean Platelet Volume 11.4 fL (9.4-12.4); Monocytes # (auto) 0.81 K/uL (0.11-0.59); Monocytes % (auto) 13.7 %; Neutrophils # (auto) 4.45 K/uL (1.40-6.50); Neutrophils % (auto) 75.5 %; Platelet Count 189 K/uL (130-400); RDW Coefficient of Variation 13.9 % (11.5-14.5); RDW Standard Deviation 46.5 fL (36.4-46.3); Red Blood Count 3.49 M/uL (4.70-6.10)
[2023-04-30 06:05] LABS: BUN Creatinine Ratio 29.1 (10-20); Calcium 8.3 mg/dl (8.6-10.3); Creatinine Clr Calc Pharmacy 48.9 ml/min; Est GFR (African American) 67.8 ml/min; Est GFR (Non-African American) 58.5 ml/min; Magnesium 1.6 mg/dl (1.7-2.4); Potassium 4.7 mmol/L (3.5-5.1)
[2023-04-30] MEDS: PIPERACILLIN/TAZOBACTAM 4.5 GM in DEXTROSE 5% MINI-B 100 ML IV SCH ×3 (06:07→21:19)
[2023-04-30 06:30] LABS: INR 1.2 (0.9-1.1); Prothrombin Time 12.6 Seconds (9.0-12.0)
--- NOTE | 2023-04-30 07:15 | Electrocardiogram Report ---
Test Reason : Blood Pressure : / mmHG Vent. Rate : 098 BPM Atrial Rate : 000 BPM P-R Int : 000 ms QRS Dur : 118 ms QT Int : 374 ms P-R-T Axes : 000 -29 032 degrees QTc Int : 477 ms Atrial fibrillation Non-specific intra-ventricular conduction delay Nonspecific ST and T wave abnormality Prolonged QT Abnormal ECG Confirmed by Maurisio Jorgensen ([id number]) on 04/30/2023 7:14:44 AM Referred By: REFERRED SELF Confirmed By:Dean Jorgensen
[2023-04-30] MEDS: ALBUT/IPRATROP 3MG/0.5MG NEB 3 ML VIAL NEB SCH ×4 (07:37→19:52)
--- NOTE | 2023-04-30 07:42 | Ultrasound Report ---
RENAL ULTRASOUND CLINICAL HISTORY: YANIRA; please eval for obstruction/hydro COMPARISON STUDY: Right upper quadrant ultrasound November 21, 2022. CT of the abdomen and pelvis [facility] 2019. MRI of the abdomen May 10, 2022. TECHNIQUE: Sonography of the kidneys and the urinary bladder was performed. FINDINGS: There is no hydronephrosis. The right kidney measures 12 x 5.9 x 6.1 cm and the left kidney measures 12 x 7.2 x 6.6 cm. No renal calculi are identified by sonography. The prostate is enlarged. Both ureteral jets were identified. Bladder wall thickening is nonspecific but likely chronic. There is mild renal cortical thinning. There is trace left perinephric fluid. IMPRESSION: 1. No hydronephrosis. 2. Mild bilateral renal cortical thinning. ACT 112: Negative or not required by law. Electronically signed by: Osbaldo Milner M.D. 04/30/2023 7:41 AM
[2023-04-30] MEDS ORDERED: PNEUMOCOCCAL VACCINE (PCV20) 20-VAL CONJ-DIP CRM/PF 0.5 ML SYR IM ONE (08:00)
[2023-04-30] MEDS: FLUTICASONE/VILANTEROL 200/25MCG 14 PUFFS/INHALER INH SCH (09:34)
[2023-04-30] MEDS: MAGNESIUM OXIDE 400 MG TAB PO SCH (09:35)
[2023-04-30] MEDS: METOPROLOL SUCC 25MG EXT REL TAB PO SCH (09:36)
[2023-04-30] MEDS: PANTOprazole 40 MG TAB PO SCH (09:37)
[2023-04-30] MEDS: UMECLIDINIUM BROMIDE 62.5MCG/BLISTER 7 PUFFS/INHALER INH SCH (09:37)
[2023-04-30] MEDS: APIXABAN 5 MG TABLET PO SCH ×2 (09:47→20:23)
[2023-04-30] MEDS: SODIUM CHLORIDE 0.9% 1,000 ML IV SCH (14:58)
--- NOTE | 2023-04-30 15:20 | Hospitalist Progress Note ---
Date of Service April 30, 2023 Assessment & Plan (1) Alteration consciousness: Plan: -Presented to the ED via EMS after experiencing a 30 second long alteration in mental status shortly after his son lifted him up off the ground after sliding off his recliner -CT head/brain was negative for acute findings -At this time, no further episodes since arrival to the hospital - suspect episode of orthostatic hypotension after being raised off the ground -Prolactin normal -Fall precautions ordered -Q4H neuro checks -Continue home Eliquis for DVT PPX (2) Hypotension: Plan: -Noted to be hypotensive at 69/50 on arrival. He is significantly dehydrated on exam and reports poor oral intake with continued use of his home metoprolol, spironolactone, Entresto, and alfuzosin -Patient with multiple courses of oral Prednisone recently, cannot rule out adrenal insufficiency at this time -random cortisol 9.02 -Lactate 1.2 -Received 2.5L of fluid and continues to appear dehydrated - Will continue maintenence fluids overnight -Start Midodrine 2.5mg TID -Continue to hold Entresto, diuretics, and alfuzosin - continue metoprolol XL 12.5mg with his hx of afib (3) Acute kidney injury: Plan: -Cr today is 1.6, baseline is near 0.8 -Suspect YANIRA is pre-renal due to significant dehydration -Fluid resussitation as above -Renal US without obstruction -UA without bacteria, likely contaminated. -Avoid nephrotoxic agents (4) Leukocytosis: Plan: -Patient noted to have a leukocytosis of 10 with neutrophil predominance of 9 -?active infection vs reactive from recent outpatient prednisone -He denies abdominal symptoms, diarrhea, urinary symptoms -Does have a small pressure ulcer on the right buttocks but this does not appear infected at this time -His most likely source is his continued pulmonary symptoms with increased green sputum production -Completed a course of Ciprofloxacin for possible Klebsiella tracheobronchitis -Will continue zosyn for now (previous sputum culture sensitive) -Blood cultures pending -Urine Cultures pending (5) Chronic systolic (congestive) heart failure: Plan: -With hx of mitral valve replacement - Will check Echo in setting of persistent hypotension (6) Hyponatremia: Plan: -Sodium at 130 on admission. -Has been in the low 130's since last admission in March 2023 -Multifactorial? - poor PO intake vs cirrhosis vs component of SIADH with his recent admissions and illness -Continue IV fluids as above (7) Chronic obstructive pulmonary disease: Plan: -Patient is stable on his baseline O2 requirements, do not think that he is experiencing a COPD exacerbation at this time -Continue Zosyn for now to cover recent Klebsiella tracheobronchitis -Continue incentive spirometry, flutter therapy, and QIDR duonebs -Prn O2 to keep SpO2 between 89-92% -CT chest ordered for underlying pneumonia -Sputum culture pending (8) Hypomagnesemia: Plan: -Noted to be 1.6 on arrival, S/P 800 mg PO Mag in the ED -Stable 1.6 today, recheck AM and if not imporving with PO supplementation with give IV -Continue home PO mag (9) Generalized weakness: Plan: -Likely multifactorial including deconditioning, dehydration, and possible infection -Continue hydration and antibiotics -PT/OT consults ordered -Fall precuations (10) Pressure ulcer: Plan: -Patient notes recent small pressure ulcer on his buttocks with recent weakness and inactivity -Patient noted to have signs of skin breakdown on his sacrum with a small, non- infected pressure ulcer on the right buttocks -wound care nurse consulted -Turn and position q2h, low air loss bed ordered (11) Hyperkalemia: Plan: -Resolved -Was noted to be 5.3 in the ED -Likely due to his YANIRA and continued spironolactone use (12) Elevated troponin: Plan: -Initial high sen trop elevated at 27 ---> 22 on 2 hour repeat -Likely due to demand with hypotension, possible infection, and YANIRA Plan Dispo: continued inpatient stay DVT proh: [facility] Family updated at beside. Admission and Anticipated Discharge Date Admission Date: April 29, 2023 Supervising Physician Co-Signing Physician Notes Attending Attestation - Chart reviewed in detail, care plan d/w CALVIN Morel. I agree w/ the martínez components of her documentation. Complicated 82yo with hypotension in the setting of ongoing cough/weakness/etc since his hospitalization in 04/01 for RSV and pseudomonas infection. In light of ongoing cough and clinical presentation plan for CT chest - r/o pneumonia. Hyponatremia - chronic - dating back at least to 2021. Does have h/o CHF but has not been eating/drinking and thus current hyponatremia likely from volume contraction and poor renal perfusion from low BP. Plan for gentle IV fluids overnight. Last echo was 2022 - will obtain repeat echo to reassess LV & RV function. Other plans per Ms Morel. Nain Snider MD Subjective Patient lying in bed, and daughter At bedside. Patient with recent hospitalization [id number] 02-19 14 with RSV and diagnosis of Pseudomonas tracheobronchitis. Since then patient feels like he has never recovered back to his baseline. Has gotten progressively weaker and is still requiring more oxygen than his baseline. After completion of ciprofloxacin he was given a 7- day course of steroids from pulmonology. The event that led him to come to the hospital was as follows. He was getting ready in the bathroom washing his face, and got very fatigued and short of breath went to sit down on the chair missed the chair slid to the floor at that point needed assistance to be raised back into the chair (from his son) and when he was positioned back in chair he had a brief about 30 second loss of consciousness. Has had no further episodes since. States overall decline in appetite over the last month, has been doing boost protein shakes at home. reports has been making them into milkshakes as well. Denies fevers and chills. Tele - afib with PVCs 70-90s Review of Systems Review of Systems: All systems reviewed & are unremarkable except as noted in Subjective Physical Exam Physical Exam: General: NAD, thin, ill appearing VS as above HEENT: mucus membranes dry Resp: normal respiratory effort, 2L nasal cannula, diminished in the bases CV: irregularly irregular, Abd: normal bowel sounds, non tender, no hepatosplenomegaly Back: dressing in place over skin breakdown, c/d/i Extremities: Moves all extremities, no edema Neuro: A&O x3, Results & Data Results & Data Vital Signs (Past 12 Hours) Vital Signs Temp Pulse Pulse Resp BP Pulse Ox O2 Del Method 04/30/23 15:10 90 18 93 Nasal Cannula 04/30/23 11:11 99 H 17 95/59 L 92 Nasal Cannula 04/30/23 10:26 94 H 18 92 Oxymask 04/30/23 07:56 36.3 C L 98 H 16 114/67 94 Nasal Cannula 04/30/23 07:43 81 04/30/23 07:38 90 18 93 Nasal Cannula 04/30/23 03:55 36.4 C L 96 H 18 90/54 L 92 Nasal Cannula O2 Flow Rate 04/30/23 15:10 2 04/30/23 11:11 2 04/30/23 10:26 2 04/30/23 07:56 1 04/30/23 07:43 04/30/23 07:38 2 04/30/23 03:55 2 Laboratory Results CBC, chemistry and coag studies reviewed PG Care Time/CCT Total # of Minutes Spent Total Time Spent with Patient: Total time spent is greater than 50% in coordination of care (as documented) at patient's floor/unit and/or counseling patient: Coding Level of Care Code 73804 SUB INP/OBS CARE 3/50MIN Diagnoses Alteration consciousness R40.4 Hypotension I95.9 Acute kidney injury N17.9 Leukocytosis D72.829 Chronic systolic (congestive) heart failure I50.22 Hyponatremia E87.1 Centrilobular emphysema J43.2 COPD type: emphysema Emphysema type: centrilobular Hypomagnesemia E83.42 Generalized weakness R53.1 Pressure ulcer L89.90 Hyperkalemia E87.5 Elevated troponin R77.8 (7) Chronic obstructive pulmonary disease COPD type: emphysema Emphysema type: centrilobular Qualified Code(s): J43.2 - Centrilobular emphysema
[2023-04-30] MEDS: MIDODRINE HCL 2.5 MG TAB PO SCH (16:45)
--- NOTE | 2023-04-30 21:03 | CT Scan Report ---
Exam(s): CT CHEST Without Contrast EXAM: CT Chest Without Intravenous Contrast CLINICAL HISTORY: Reason for exam: SOB, recent RSV and trachebronchitis. TECHNIQUE: Axial computed tomography images of the chest without intravenous contrast. CTDI is 11.21 mGy and DLP is 446 mGy-cm. Automated exposure control was utilized for the study. A dose lowering technique was utilized adhering to the principles of ALARA. COMPARISON: Chest CT 10/04/2021 FINDINGS: Lungs: Scattered heterogeneous airspace opacities most pronounced in the left lower lobe consistent with pneumonia. Interstitial edema. Pleural space: Small pleural effusions. Heart: Mitral annular and coronary artery calcifications. Bones/joints: No acute findings. Soft tissues: Unremarkable. Vasculature: No aortic aneurysm. Mild atherosclerotic disease.. Lymph nodes: Unremarkable. IMPRESSION: 1. Scattered heterogeneous airspace opacities most pronounced in the left lower lobe consistent with pneumonia. 2. Interstitial edema and small pleural effusions. Electronically signed by: Michael Harding MD 04/30/23 21:02 PM
[2023-05-01] MEDS: SODIUM CHLORIDE 0.9% 1,000 ML IV SCH ×3 (02:13→19:52)
[2023-05-01] MEDS: PIPERACILLIN/TAZOBACTAM 4.5 GM in DEXTROSE 5% MINI-B 100 ML IV SCH ×3 (06:31→21:37)
[2023-05-01 06:35] LABS: Basophils # (auto) 0.05 K/uL (0.00-0.20); Basophils % (auto) 0.8 %; Eosinophils # (auto) 0.17 K/uL (0.00-0.50); Eosinophils % (auto) 2.7 %; Hemoglobin 10.8 g/dl (14.0-18.0); Immature Granulocytes # (auto) 0.03 K/uL (0.01-0.20); Immature Granulocytes % (auto) 0.5 %; Lymphocytes # (auto) 0.51 K/uL (1.20-3.40); Lymphocytes % (auto) 8.1 %; Mean Corpuscular Hemoglobin 29.1 pg (25.0-34.0); Mean Corpuscular Hgb Conc 32.7 g/dL (32.0-36.0); Mean Corpuscular Volume 88.9 fL (80.0-100.0); Mean Platelet Volume 11.1 fL (9.4-12.4); Monocytes # (auto) 0.85 K/uL (0.11-0.59); Monocytes % (auto) 13.5 %; Neutrophils # (auto) 4.67 K/uL (1.40-6.50); Neutrophils % (auto) 74.4 %; Platelet Count 198 K/uL (130-400); RDW Standard Deviation 45.5 fL (36.4-46.3); Red Blood Count 3.71 M/uL (4.70-6.10); White Blood Count 6.28 K/ul (4.8-10.8)
[2023-05-01 07:05] LABS: Calcium 8.6 mg/dl (8.6-10.3); Creatinine Clr Calc Pharmacy 64.7 ml/min; Est GFR (Non-African American) 81.1 ml/min; Magnesium 1.5 mg/dl (1.7-2.4); Potassium 4.6 mmol/L (3.5-5.1)
[2023-05-01] MEDS: ALBUT/IPRATROP 3MG/0.5MG NEB 3 ML VIAL NEB SCH ×4 (07:12→19:59)
[2023-05-01] MEDS: APIXABAN 5 MG TABLET PO SCH ×2 (08:25→19:52)
[2023-05-01] MEDS: MIDODRINE HCL 2.5 MG TAB PO SCH ×3 (08:25→18:28)
[2023-05-01] MEDS: MAGNESIUM OXIDE 400 MG TAB PO SCH (08:26)
[2023-05-01] MEDS: UMECLIDINIUM BROMIDE 62.5MCG/BLISTER 7 PUFFS/INHALER INH SCH (08:27)
[2023-05-01] MEDS: FLUTICASONE/VILANTEROL 200/25MCG 14 PUFFS/INHALER INH SCH (08:27)
[2023-05-01] MEDS: METOPROLOL SUCC 25MG EXT REL TAB PO SCH (08:28)
[2023-05-01] MEDS: PANTOprazole 40 MG TAB PO SCH (08:28)
[2023-05-01] MEDS: MAGNESIUM SULFATE / D5W 1 GM/100 ML BAG IV SCH ×2 (10:05→12:25)
--- NOTE | 2023-05-01 15:23 | Hospitalist Progress Note ---
Date of Service May 01, 2023 Assessment & Plan (1) Alteration consciousness: Plan: -Presented to the ED via EMS after experiencing a 30 second long alteration in mental status shortly after his son lifted him up off the ground after sliding off his recliner -CT head/brain was negative for acute findings -At this time, no further episodes since arrival to the hospital - suspect episode of orthostatic hypotension after being raised off the ground -Prolactin normal -Fall precautions ordered -Continue home Eliquis for DVT PPX (2) Hypotension: Plan: -Noted to be hypotensive at 69/50 on arrival. He is significantly dehydrated on exam and reports poor oral intake with continued use of his home metoprolol, spironolactone, Entresto, and alfuzosin -Patient with multiple courses of oral Prednisone recently, cannot rule out adrenal insufficiency at this time -random cortisol 9.02 -Lactate 1.2 -Received 2.5L of fluid and continues to appear dehydrated - then recieved maintence fluids over night. discontinued with his underlying CHF -Increase Midodrine 5mg TID -Continue to hold Entresto, diuretics, and alfuzosin -continue metoprolol XL 12.5mg with his hx of afib (3) Acute kidney injury: Plan: IMPROVED -Cr on admission is 1.6, baseline is near 0.8 -Suspect YANIRA is pre-renal due to significant dehydration --> improved with fluids -Renal US without obstruction -UA without bacteria, likely contaminated. -Avoid nephrotoxic agents (4) Pneumonia: Plan: -Leukocytosis on admission, started on Zosyn - CT chest: scattered heterogenous airspace opacities most pronounced in the left lower lobe consistent with pneumonia. Interstitial edema and small pleural effusions. - Sputum culture with GN bacilli - previous culture (03/21) grew pseudomonas that was sensitive to zosyn, treated with cipro at discharge - Blood cultures NG24 hours (5) Chronic systolic (congestive) heart failure: Plan: -With hx of mitral valve replacement -Echo pending (6) Hyponatremia: Plan: -Sodium at 130 on admission. -Has been in the low 130's since last admission in March 2023 -Multifactorial? - poor PO intake vs cirrhosis vs component of SIADH with his recent admissions and illness -Urine sodium, urine osm, serum osm pending (7) Chronic obstructive pulmonary disease: Plan: -Patient is stable on his baseline O2 requirements, do not think that he is experiencing a COPD exacerbation at this time -Continue incentive spirometry, flutter therapy, and QIDR duonebs -O2 goal 88% (8) Hypomagnesemia: Plan: -Noted to be 1.6 on arrival, S/P 800 mg PO Mag in the ED -Replaced 2g IV 05/01 -Continue home PO mag (9) Generalized weakness: Plan: -Likely multifactorial including deconditioning, dehydration, and pneumonia -Continue hydration and antibiotics -PT/OT consults ordered -Fall precuations (10) Pressure ulcer: Plan: -Patient notes recent small pressure ulcer on his buttocks with recent weakness and inactivity -Patient noted to have signs of skin breakdown on his sacrum with a small, non- infected pressure ulcer on the right buttocks -wound care nurse consulted -Turn and position q2h, low air loss bed ordered (11) Hyperkalemia: Plan: -Resolved -Was noted to be 5.3 in the ED -Likely due to his YANIRA and continued spironolactone use (12) Elevated troponin: Plan: -Initial high sen trop elevated at 27 ---> 22 on 2 hour repeat -Likely due to demand with hypotension, possible infection, and YANIRA Plan Dispo: continued inpatient stay DVT proh: Eliquis Admission and Anticipated Discharge Date Admission Date: April 29, 2023 Supervising Physician Co-Signing Physician Notes Attending Attestation - Chart reviewed in detail, care plan d/w CALVIN Morel. I agree w/ the martínez components of her documentation. CT chest did indeed show pneumonia - continue IV antibiotics; follow sputum cx to completion. Hyponatremia - stable at 131 today. Dehydration - resolved; stop IV fluids given h/o CHF. Hypotension - improving albeit slowly; add midodrine; stop IV fluids to avoid volume overload. blood cx's from 04/29/23 negative to date. awaiting echo results. Nain Snider MD Subjective Patient lying in bed. States he feels about the same as yesterday. weak when getting out of bed, has not been up today, but did get washed up. Continues with poor appetite. Feels like his breathing is the same, cough is still productive. Denies chills. Moving his bowels. he was shocked to hear he had pneumonia afib 100s with PVCs Review of Systems Review of Systems: All systems reviewed & are unremarkable except as noted in Subjective Physical Exam Physical Exam: General: NAD, thin, ill appearing VS as above HEENT: mucus membranes dry Resp: normal respiratory effort, 3L nasal cannula, diminished in the bases CV: irregularly irregular, Abd: normal bowel sounds, non tender, no hepatosplenomegaly Back: dressing in place over skin breakdown, c/d/i Extremities: Moves all extremities, no edema Neuro: A&O x3, Results & Data Results & Data Vital Signs (Past 12 Hours) Vital Signs Temp Pulse Resp BP Pulse Ox Pulse Ox O2 Del Method 05/01/23 13:02 91 05/01/23 12:23 36.5 C 104 H 18 99/59 L 95 Nasal Cannula 05/01/23 11:16 88 18 93 Nasal Cannula 05/01/23 08:03 36.4 C L 103 H 19 100/67 96 Nasal Cannula 05/01/23 07:59 Nasal Cannula 05/01/23 07:14 77 17 91 Nasal Cannula 05/01/23 03:11 36.4 C L 105 H 18 104/61 90 Nasal Cannula O2 Flow Rate O2 Flow Rate 05/01/23 13:02 3 05/01/23 12:23 3.0 05/01/23 11:16 3 05/01/23 08:03 3.0 05/01/23 07:59 3 05/01/23 07:14 2 05/01/23 03:11 Laboratory Results CBC and chemistry reviewed Diagnostic Findings chest CT reviewed PG Care Time/CCT Total # of Minutes Spent Total Time Spent with Patient: Total time spent is greater than 50% in coordination of care (as documented) at patient's floor/unit and/or counseling patient: Coding Level of Care Code 48584 SUB INP/OBS CARE 3/50MIN Diagnoses Alteration consciousness R40.4 Hypotension I95.9 Acute kidney injury N17.9 Pneumonia J18.9 Chronic systolic (congestive) heart failure I50.22 Hyponatremia E87.1 Centrilobular emphysema J43.2 COPD type: emphysema Emphysema type: centrilobular Hypomagnesemia E83.42 Generalized weakness R53.1 Pressure ulcer L89.90 Hyperkalemia E87.5 Elevated troponin R77.8 (7) Chronic obstructive pulmonary disease COPD type: emphysema Emphysema type: centrilobular Qualified Code(s): J43.2 - Centrilobular emphysema
--- NOTE | 2023-05-01 19:20 | XCELERA ---
[id number] \\[email or web address]\[id number]}[id number]
[2023-05-02] MEDS: SODIUM CHLORIDE 0.9% 1,000 ML IV SCH (05:42)
[2023-05-02] MEDS: PIPERACILLIN/TAZOBACTAM 4.5 GM in DEXTROSE 5% MINI-B 100 ML IV SCH ×3 (05:42→20:37)
[2023-05-02 06:21] LABS: Basophils # (auto) 0.05 K/uL (0.00-0.20); Basophils % (auto) 0.6 %; Eosinophils # (auto) 0.19 K/uL (0.00-0.50); Eosinophils % (auto) 2.1 %; Hematocrit (blood only) 32.9 % (42.0-52.0); Hemoglobin 10.6 g/dl (14.0-18.0); Immature Granulocytes # (auto) 0.07 K/uL (0.01-0.20); Immature Granulocytes % (auto) 0.8 %; Lymphocytes # (auto) 0.75 K/uL (1.20-3.40); Lymphocytes % (auto) 8.4 %; Mean Corpuscular Hemoglobin 29.2 pg (25.0-34.0); Mean Corpuscular Hgb Conc 32.2 g/dL (32.0-36.0); Mean Corpuscular Volume 90.6 fL (80.0-100.0); Monocytes # (auto) 1.19 K/uL (0.11-0.59); Monocytes % (auto) 13.3 %; Neutrophils % (auto) 74.8 %; Platelet Count 225 K/uL (130-400); RDW Standard Deviation 45.9 fL (36.4-46.3); Red Blood Count 3.63 M/uL (4.70-6.10); White Blood Count 8.95 K/ul (4.8-10.8)
[2023-05-02 06:44] LABS: BUN Creatinine Ratio 19.2 (10-20); Calcium 8.4 mg/dl (8.6-10.3); Est GFR (African American) 101.5 ml/min; Est GFR (Non-African American) 87.6 ml/min; Magnesium 1.7 mg/dl (1.7-2.4); Potassium 4.4 mmol/L (3.5-5.1)
[2023-05-02] MEDS: ALBUT/IPRATROP 3MG/0.5MG NEB 3 ML VIAL NEB SCH ×4 (07:26→18:14)
--- NOTE | 2023-05-02 07:36 | Hospitalist Progress Note ---
Date of Service May 02, 2023 Assessment & Plan (1) Alteration consciousness: Plan: -Presented to the ED via EMS after experiencing a 30 second long alteration in mental status shortly after his son lifted him up off the ground after sliding off his recliner CT head/brain NAF No further episodes since arrival to hospital. ?episode of orthostatic hypotension after being raised off the ground w/ low BP Procal w/o elevation Fall precautions Eliquis continued for DVT proph (hx afib/mitral valve) 05/02 Appearing volume overloaded, increased O2 needs this morning to 4-5L NC (baseline 2L) CT chest on 04/30 w/ interstitial pulm edema, IVF ordered overnight for low Na, worse this AM and discontinued. CXR ordered, appears fluid in fissure, not worse from admit but worse than prior baselines and will monitor response to lasix 60mg IV x 1. ECHO also noting dilated IVC, suggestive of volume overload state Mag 2.0 yesterday, K 4.4 on AM labs. Afib on monitor, 90-100s overnight, up to 130-140s this morning and now to low 100s. On metoprolol 12.5mg daily, however appears issues w/ hypotension and midodrine increased to 5mg TID and will hold off increasing for now however suspect likely increased dose to prevent elevated afib/RVR and hypotension given low BPs occurring appears w/ elevated heart rates. BNP added to AM labs --> elevated to 1211. His spironolactone 25mg also on hold an pending BPs this afternoon, likely resuming if BP tolerates Sutton placed for retention issues (required st cath overnight x 1) - monitor for any evidence for UTI (2) Pneumonia: Plan: WBC elevation on admission w/ CT chest w/ scattered heterogenous airspace opacities most pronounced in the left lower lobe consistent with pneumonia. 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) Continue pulmonary toilet, incentive spirometer Diuretics as outlined above for volume overload (3) Hypotension: Plan: Hypotensive w/ BP 69/50 on arrival in setting of significant dehydration/poor PO intake and continued use of home BB, spironolactone, entresto, alfuzosin and multiple recent courses of PO prednisone (cannot r/o underlying adrenal insufficiency w/ K 5.3 and hyponatremia on admission, random cortisol only 9 Can consider stress dose steroids if further hypotension, stable this morning but having volume overload from increased HR suspected Lactic 1.2 on admit, given 2.5L and continued MF overnight and additional IVF @ 80cc/hr ordered last evening (05/01) for low Na and midodrine increased BP stable this morning, continued midodrine 5mg TID for now HOWEVER, volume overloaded/increased HR this morning suspected from holding diuretics/additional IVF overnight DC IVF this morning, CXR ordered, BNP added to labs --> ELEVATED 1211 ECHO w/ LV systolic function is normal. Moderate concentric LVH. RV systolic function moderately reduced. LA mildly dilated. RA moderate to severely dilated. Bioprosthetic mitral valve. Moderate mitral stenosis. RVSP elevated at 40- 50mmHg. Inferior vena cava is mildly dilated. Lasix 60mg IV x 1 as above, planning to resume spironolactone continue to monitor on telemetry (has been SR 50-60s at present) Continues on Metoprol 12.5mg PO, Eliquis Monitor for ability to resume home entresto/consideration for cards consult if needed *Can consider stress dosing steroids if becomes hypotensive again given hyponatremia/hyperkalemia/cortisol level (4) Acute kidney injury: Plan: IMPROVED and Cr back to baseline from 1.62 on admission. ?ATN from low BP on admit in setting of diuretics/poor PO intake. Suspected YANIRA pre-renal 2nd to significant dehydration/improved w/ IVF and holding diuretics Pt reports he had been using urinal but reported issues w/ not being able to urinate w/o standing up. St cath overnight x1 05/01 for retention >700cc Prior US Renal w/o obstruction, UA did not note any bacteria BUN/Cr 14/0.73 on AM labs w/ Na 131-->127 and was placed on NSS @ 100cc/hr overnight. Dc w/ his hx CHF, checked CXR/BNP for pulm edema/CHF (interstitial edema on CT chest imaging on admission). ECHO w/ mildly dilated IVC suggestive of volume overload as outlined and Lasix IV x 1 provided and resuming PO spironolactone this afternoon and will monitor Lasix IV x1 AM 05/02 and sutton placed this morning as above with pink tinged urine at present time Would avoid flomax given issues w/ hypotension as above, now with sutton in place [place] tinge urine at present and monitor for need for repeat eval for underlying infection. Planning forvoiding trial prior to dc vs f/u urology outpatient. 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 Fluid rest riction in place. 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 Dr Dominique -- continued discussions but CHF provider may be able to see /assist w/ plan for ongoing care w/ his specialists prior to dc (6) Hyponatremia: Plan: Chronic, multifactorial Hx cirrhosis, chronic lows TSH 2.8 Random cortisol 9 Serum osm 271 this morning, diuretics had been on hold urine osm 616 , urine sodium 172, ?component SIADH BNP checked and significant elevation to 1200s today, lasix IV as outlined and will monitor labs in AM (7) Chronic obstructive pulmonary disease: Plan: Patient is stable on his baseline O2 requirements, do not think that he is experiencing a COPD exacerbation at this time however did report greenish sputum/tx suspected pneumonia as above O2 2L at basline, increased this morning and suspected acute exacerbation HFpEF as outlined and diuretics provided Supplemental O2 to maintain sats, pulm toilet, nebs as needed Sputum cx pseudomonas, ?colonized Zosyn --> planning to transition to levaquin for tomorrow f/u pulm outpt (8) Hypomagnesemia: Plan: Noted to be 1.6 on arrival, S/P 800 mg PO Mag in the ED, 2gm IV continues on home PO supplementation Mag 1.7 on AM labs, IV ordered to prevent elevated HR given underling afib to prevent further elevated HRs that likely contribute to exacerbation in setting of holding his diuretics Monitor mag in AM (9) Generalized weakness: Plan: -Likely multifactorial including deconditioning, dehydration, and pneumonia -Continue hydration and antibiotics -PT/OT consults ordered and will need encompass once medically stable, not at present time but hopefully in next 48 hours or so -Fall precautions to be maintained (10) Pressure ulcer: Plan: Patient notes recent small pressure ulcer on his buttocks with recent weakness and inactivity Patient noted to have signs of skin breakdown on his sacrum with a small, non- infected pressure ulcer on the right buttocks wound care nurse consulted Turn and position q2h, low air loss bed ordered (11) Hyperkalemia: Plan: K 5.3 in the ED Likely due to his YANIRA and continued spironolactone use which was on hold, but resumed w/ lasix as above for today and will monitor BMP in AM (12) Elevated troponin: Plan: Initial high sen trop elevated at 27 ---> 22 on repeat. suspected demand ischemia from hypotension/possible infection/YANIRA Monitoring on telemetry as above, no CP reported (13) Atrial fibrillation: Plan: continues on metoprolol, eliquis mag 1.5 on abs 05/01, IV replacement ordered and 1.7 on AM labs. consideration for increased metoprolol but difficult given increased midodrine for hypotension day prior. consideration for consultation w/ cards pending repeat exam Plan Dispo: continued inpatient stay , encompass once medically stable (possible next 48hrs or so) DVT proh: Eliquis continued monitor CXR/labs in AM and plan to transition to PO levaquin to complete course for posisble PNA on admission Admission and Anticipated Discharge Date Admission Date: April 29, 2023 Supervising Physician Co-Signing Physician Notes The patient was not seen by me. The chart was reviewed. Case discussed with CALVIN Borjas. Agree with assessment and plan Subjective Eval shortly after 10, did have some increased work of breathing/respiratory distress this morning. discussed believe from elevated HR/IVF/volume overload and was provided lasix 60mg IV and IVF discontinued. BP stable at present and discussed can monitor/resume spironolactone in AM. Prior followed by CHF clinic, he notes had also been seen by Dr Mann. Unsure if re-enroll in CHF clininc program but if repeated hospitalizations should strongly consider. Cough w/ greenish sputum reported. Cx discussed w/ pseudomonas and planning for Levaquin for respiratory FLQ to complete course. Discussed HR possible worsening CHF/volume overload. Will monitor BP w/ diuretics as they increased his midodrine day prior however suspect may need increased dose of metoprolol. unable to void overnight, bladder scan >700, st cath for cloudy urine w/ reported relief. sutton catheter to be placed given retention. He reports he thinks it was because he was trying to use urinal and has better effects/ability to urinate if standing up. Drained for 1L thus far. Planning for rehab once stable/able, he does not think he is at present time. Agreed and will monitor/continue diuretics and hopefully able to resume meds. May need to consider consultation pending response to meds. Questions/concerns addressed at this time. Physical Exam Physical Exam: General: chronically ill appearing male laying in bed, reports feeling a little better than this morning, some belly breathing but NAD, on 3L at present, sutton just placed and draining pink tinged urine head atraumatic, normocephalic, lips chapped but mm moist, trachea midline resp: diminished in the bases, slightly tachypneic, expiratory wheezing/rales, on 3-4L NC CV: irregularly irregular, rates presently 80-90s, +systolic murmur, trace pedal edema, calves nontender GI: +BS, soft/NT Back: dressing in place over skin breakdown, c/d/i Extremities: Moves all extremities, generalized weakness but nonfocal Psych: AOx3, cooperative with exam Results & Data Results & Data Vital Signs (Past 12 Hours) Vital Signs Temp Pulse Pulse Resp BP Pulse Ox O2 Del Method 05/02/23 07:32 89 18 93 Nasal Cannula 05/02/23 03:41 36.4 C L 102 H 22 158/85 H 93 Nasal Cannula 05/01/23 22:57 36.5 C 100 H 18 133/73 92 Nasal Cannula 05/01/23 22:00 101 H 05/01/23 20:00 Nasal Cannula 05/01/23 19:59 88 20 97 Nasal Cannula O2 Flow Rate 05/02/23 07:32 3 05/02/23 03:41 3 05/01/23 22:57 3 05/01/23 22:00 05/01/23 20:00 4 05/01/23 19:59 4 Laboratory Results 05/02/23 05/01/23 Range/Units 05:52 Unknown WBC 8.95 (4.8-10.8) K/ul RBC 3.63 L (4.70-6.10) M/uL Hgb 10.6 L (14.0-18.0) g/dl Hct 32.9 L (42.0-52.0) % MCV 90.6 (80.0-100.0) fL MCH 29.2 (25.0-34.0) pg MCHC 32.2 (32.0-36.0) g/dL RDW Std Deviation 45.9 (36.4-46.3) fL RDW Coeff of Kamron 14.0 (11.5-14.5) % Plt Count 225 (130-400) K/uL MPV 11.0 (9.4-12.4) fL Immature Gran % (Auto) 0.8 % Neut % (Auto) 74.8 % Lymph % (Auto) 8.4 % Sully % (Auto) 13.3 % Eos % (Auto) 2.1 % Baso % (Auto) 0.6 % Neut # (Auto) 6.70 H (1.40-6.50) K/uL Lymph # (Auto) 0.75 L (1.20-3.40) K/uL Sully # (Auto) 1.19 H (0.11-0.59) K/uL Eos # (Auto) 0.19 (0.00-0.50) K/uL Baso # (Auto) 0.05 (0.00-0.20) K/uL Immature Gran # (Auto) 0.07 (0.01-0.20) K/uL Sodium 127 L (136-145) mmol/L Potassium 4.4 (3.5-5.1) mmol/L Chloride 95 L (98-107) mmol/L Carbon Dioxide 25 (21-32) mmol/L Anion Gap 7 (3-11) BUN 14 (6-23) mg/dl Creatinine 0.73 (0.6-1.4) mg/dl Est Cr Clr Drug Dosing 78.0 ml/min Est GFR ( Amer) 101.5 ml/min Est GFR (Non-Af Amer) 87.6 ml/min BUN/Creatinine Ratio 19.2 (10-20) Glucose 79 (70-99(Fasting)) mg/dl Osmolality 271 L (280-300) mOsm/kg Calcium 8.4 L (8.6-10.3) mg/dl Magnesium 1.7 (1.7-2.4) mg/dl Urine Osmolality 616 (500-800) mOsm/kg Ur Random Sodium 172 mmol/L Diagnostic Findings ECHOCARDIOGRAM LV systolic function is normal. Moderate concentric LVH. RV systolic function moderately reduced. LA mildly dilated. RA moderate to severely dilated. Bioprosthetic mitral valve. Moderate mitral stenosis. RVSP elevated at 40- 500mmHg. Inferior vena cava is mildly dilated. PG Care Time/CCT Total # of Minutes Spent Total Time Spent with Patient: Total time spent is greater than 50% in coordination of care (as documented) at patient's floor/unit and/or counseling patient: Coding Level of Care Code 40514 SUB INP/OBS CARE 3/50MIN Diagnoses Alteration consciousness R40.4 Pneumonia J18.9 Hypotension I95.9 Acute kidney injury N17.9 Chronic systolic (congestive) heart failure I50.22 Hyponatremia E87.1 Centrilobular emphysema J43.2 COPD type: emphysema Emphysema type: centrilobular Hypomagnesemia E83.42 Generalized weakness R53.1 Pressure ulcer L89.90 Hyperkalemia E87.5 Elevated troponin R77.8 Permanent atrial fibrillation I48.21 Atrial fibrillation type: permanent (7) Chronic obstructive pulmonary disease COPD type: emphysema Emphysema type: centrilobular Qualified Code(s): J43.2 - Centrilobular emphysema (13) Atrial fibrillation Atrial fibrillation type: permanent Qualified Code(s): I48.21 - Permanent atrial fibrillation
[2023-05-02] MEDS ORDERED: FUROSEMIDE 40 MG/4 ML VIAL IV ONE (08:14)
[2023-05-02] MEDS: PANTOprazole 40 MG TAB PO SCH (08:35)
[2023-05-02] MEDS: APIXABAN 5 MG TABLET PO SCH ×2 (08:35→20:33)
[2023-05-02] MEDS: METOPROLOL SUCC 25MG EXT REL TAB PO SCH (08:36)
[2023-05-02] MEDS: MIDODRINE HCL 2.5 MG TAB PO SCH ×3 (08:36→15:52)
[2023-05-02] MEDS: MAGNESIUM OXIDE 400 MG TAB PO SCH (08:36)
[2023-05-02] MEDS: FLUTICASONE/VILANTEROL 200/25MCG 14 PUFFS/INHALER INH SCH (08:37)
[2023-05-02] MEDS: UMECLIDINIUM BROMIDE 62.5MCG/BLISTER 7 PUFFS/INHALER INH SCH (08:37)
--- NOTE | 2023-05-02 11:40 | XRay Report ---
XR chest 1V portable CLINICAL HISTORY: eval pulm congestion TECHNIQUE: Single frontal radiograph of the chest was obtained. Comparison: Comparison is made to chest radiograph 04/29/2023 FINDINGS: No lines and tubes are seen. Cardiomegaly is noted. The aortic arch is calcified. Emphysema and chron ic interstitial thickening is seen. There is prominence of the pulmonary vasculature. Small bilateral pleural effusions are seen. IMPRESSION: 1. Cardiomegaly and mild pulmonary edema. 2. Small bilateral pleural effusions with underlying atelectasis. ACT 112: Negative or not required by law. Electronically signed by: Darion Lee M.D. 05/02/2023 11:39 AM
[2023-05-02] MEDS ORDERED: SPIRONOLACTONE 25 MG TAB PO ONE (14:00)
[2023-05-02] MEDS ORDERED: MAGNESIUM SULFATE / D5W 1 GM/100 ML BAG IV ONE (15:07)
[2023-05-03] MEDS: PIPERACILLIN/TAZOBACTAM 4.5 GM in DEXTROSE 5% MINI-B 100 ML IV SCH (06:15)
[2023-05-03 06:51] LABS: Basophils # (auto) 0.05 K/uL (0.00-0.20); Basophils % (auto) 0.6 %; Eosinophils # (auto) 0.15 K/uL (0.00-0.50); Eosinophils % (auto) 1.9 %; Hematocrit (blood only) 32.2 % (42.0-52.0); Hemoglobin 10.8 g/dl (14.0-18.0); Immature Granulocytes # (auto) 0.05 K/uL (0.01-0.20); Immature Granulocytes % (auto) 0.6 %; Lymphocytes # (auto) 0.68 K/uL (1.20-3.40); Lymphocytes % (auto) 8.5 %; Mean Corpuscular Hemoglobin 29.1 pg (25.0-34.0); Mean Corpuscular Hgb Conc 33.5 g/dL (32.0-36.0); Mean Corpuscular Volume 86.8 fL (80.0-100.0); Mean Platelet Volume 10.9 fL (9.4-12.4); Monocytes # (auto) 0.98 K/uL (0.11-0.59); Monocytes % (auto) 12.3 %; Neutrophils # (auto) 6.05 K/uL (1.40-6.50); Neutrophils % (auto) 76.1 %; Platelet Count 203 K/uL (130-400); RDW Standard Deviation 43.9 fL (36.4-46.3); Red Blood Count 3.71 M/uL (4.70-6.10); White Blood Count 7.96 K/ul (4.8-10.8)
[2023-05-03] MEDS: ALBUT/IPRATROP 3MG/0.5MG NEB 3 ML VIAL NEB SCH ×4 (07:07→20:41)
[2023-05-03 07:13] LABS: Calcium 8.4 mg/dl (8.6-10.3); Magnesium 1.7 mg/dl (1.7-2.4); Potassium 4.2 mmol/L (3.5-5.1)
[2023-05-03 07:18] LABS: BUN Creatinine Ratio 13.3 (10-20); Creatinine Clr Calc Pharmacy 68.6 ml/min; Est GFR (African American) 96.3 ml/min; Est GFR (Non-African American) 83.1 ml/min
[2023-05-03] MEDS ORDERED: MAGNESIUM SULFATE / D5W 1 GM/100 ML BAG IV ONE (07:47)
--- NOTE | 2023-05-03 07:55 | Hospitalist Progress Note ---
Date of Service May 03, 2023 Assessment & Plan (1) Chronic systolic (congestive) heart failure: Plan: Admitted w/ hypotension/syncope/AMS (?micrurition syncope, has had urinary retention), YANIRA. IVF ordered on admission, additional overnight 05/01-05/02 and w/ worsening respiratory failure/distress, evidence of volume overload on exam Hx of mitral valve replacement , on eliquis/metoprolol but also on entresto/spirnolactone and lasix "prn" at baseline ECHO obtained given syncope w/ picking up prior to admit --> dilated IVC, EF appears unchanged. dilated IVC c/w volume overload. Diuretics had been held on admission due to YANIRA however notable CT chest noting interstitial edema/pleural effusions CXR obtained 05/02, volume overloaded. BNP elevated to 1211 Lasix 60mg IV provided, resumed spironolactone Continues on midodrine, increased to 5mg TID for hypotension and continued. Suspect prior elevated HRs contributing to volume overload. On metoprolol 12.5mg daily. Monitor for ability to increase. Mag replacement ordered, wnl on repeat but keeping closer to 2 and will monitor Na improved from 127--> 130 w/ diuresis yesterday Net negative 3.4L overnight, sutton in place (consider having urology f/u for voiding trial, continue for now -- patient possible w/ BPH/outlet obstruction at baseline -- did have renal US on admit, likely be on flomax but cautious use w/ hypotension) +1gm IV magnesium for 1.7 given his atrial fibrillation to keep closer to 2. Continue usual PO supplementation and will increase that to BID for now Monitor weights/I&Os Cards consulted given 7 beat run vtach this afternoon. EF stable on ECHO. Patient asymptomatic. Per supervising provider, increasing lasix to 40mg IV BID while inpatient and will monitor response. Entresto remains on hold -- defer to cards in restart given BP, may benefit from scheduled lasix as he did note he stopped taking daily himself (was on med list "prn) Currently down to 3L NC (2L at baseline) - titrate as able to maintain sats Zosyn continued for pulm coverage/PNA as below & transitioning to Levaquin to complete course for sputum cx + pseudomonas/prior completion w/ cipro CXR does note findings concerning for PNA --> Monitor for any worsening/fevers/leukocytosis. MRSA nares NEGATIVE PT/OT consulted --> [facility] planned at dc when medically stable. CM following. Hopefully dc by weekend Monitor labs/CXR in AM. (2) Alteration consciousness: Plan: Presented to the ED via EMS after experiencing a 30 second long alteration in mental status shortly after his son lifted him up off the ground after sliding off his recliner . Micturition syncope, urine retention as above now w/ sutton CT head/brain NAF TSH wnl No further episodes since arrival to hospital. ?episode of orthostatic hypotension after being raised off the ground w/ low BP Procal w/o elevation Fall precautions Eliquis continued for DVT proph (hx afib/mitral valve) 05/02-- volume overloaded as above, diuretics as outlined 05/03, appears alert/oriented, continuing treatment as above (3) Pneumonia: Plan: WBC elevation on admission w/ CT chest w/ scattered heterogenous airspace opacities most pronounced in the left lower lobe consistent with pneumonia. Also does make note of interstitial edema and small pleural effusions at that time - see CHF as above IV zosyn transitioning to Levaquin as above, prevent excess volume w/ CHF Sputum cx pseudomonas continue pulmonary toilet titrate o2 as able (2L baseline, currently 96% on 3L) (4) Hypotension: Plan: Hypotensive w/ BP 69/50 on arrival in setting of significant dehydration/poor PO intake and continued use of home BB, spironolactone, entresto, alfuzosin and multiple recent courses of PO prednisone (cannot r/o underlying adrenal insufficiency w/ K 5.3 and hyponatremia on admission, random cortisol only 9 Can consider stress dose steroids if further hypotension, stable this morning but having volume overload from increased HR suspected as above Lactic 1.2 on admit, given 2.5L and continued MF overnight and additional IVF @ 80cc/hr ordered last evening (05/01) for low Na and midodrine increased Midodrine increased to 5mg TID prior, continued Tolerated lasix 60mg IV and resumption of spironolactone 05/02 -- continued/outlined above ECHO w/ LV systolic function is normal. Moderate concentric LVH. RV systolic function moderately reduced. LA mildly dilated. RA moderate to severely dilated. Bioprosthetic mitral valve. Moderate mitral stenosis. RVSP elevated at 40- 50mmHg. Inferior vena cava is mildly dilated. BP 106/60 this morning w/ continued meds --> initially RN had held AM metoprolol 05/03 --> I asked to wait 30 min after midodrine and admin please, needs rate cotrolled --> tolerated metoprolol/lasix/spironolactone --> increased lasix to 40mg IV BID as above and monitoring on telemetry Remains on metoprolol 12.5mg daily -- monitor for ability to increase to 25mg (noting did dip a little into 40s last evening while sleeping and had 2.7 second pause) (5) Acute kidney injury: Plan: IMPROVED and Cr back to baseline from 1.62 on admission. ?ATN from low BP on admit in setting of diuretics/poor PO intake. Suspected YANIRA pre-renal 2nd to significant dehydration/improved w/ IVF and holding diuretics St cath x 1 for retention >700cc, sutton now in place Renal US w/o obstuction but does note enlarged prostate/bladder wall thickening/trace L perinephric fluid --> FLQ should cover as above, has been on zosyn. UA on admit w/o bacteria Diuretics as outlined and renal function remaining stable Renal dose meds/avoid nephrotoxins Entrestro remains on hold Likely benefit from flomax/finasteride. Monitor for ability for voiding trial vs continued at rehab and urology follow up (6) Hyponatremia: Plan: Chronic, multifactorial Hx cirrhosis, chronic lows TSH 2.8 Random cortisol 9 Serum osm 271 , diuretics had been on hold -- see above urine osm 616 , urine sodium 172, ?component SIADH BNP checked and significant elevation to 1200s , lasix as outlined Na 130 and will monitor level in AM/serum osm (7) Chronic obstructive pulmonary disease: Plan: Patient is stable on his baseline O2 requirements, do not think that he is experiencing a COPD exacerbation at this time however did report greenish sputum/tx suspected pneumonia as above NO WHEEZING ON EXAM 05/03 w/ diuretics yesterday abx as outlined above, pulm toilet titrate back to 2L as able (currently 96% on 3L) (8) Hypomagnesemia: Plan: Noted to be 1.6 on arrival, S/P 800 mg PO Mag in the ED, 2gm IV continues on home PO supplementation Mag 1.7 on AM labs, IV ordered to prevent elevated HR given underling afib to prevent further elevated HRs that likely contribute to exacerbation in setting of holding his diuretics Monitor mag in AM (9) Generalized weakness: Plan: -Likely multifactorial including deconditioning, dehydration, and pneumonia -Continue hydration and antibiotics -PT/OT consults ordered and will need encompass once medically stable, not at present time but hopefully in next 24-48 hours or so -Fall precautions to be maintained (10) Pressure ulcer: Plan: Patient notes recent small pressure ulcer on his buttocks with recent weakness and inactivity Patient noted to have signs of skin breakdown on his sacrum with a small, non- infected pressure ulcer on the right buttocks wound care nurse consulted Turn and position q2h, low air loss bed ordered (11) Hyperkalemia: Plan: K 5.3 in the ED Likely due to his YANIRA and continued spironolactone use which was on hold, but resumed w/ lasix as above for today and will monitor BMP in AM (12) Elevated troponin: Plan: Initial high sen trop elevated at 27 ---> 22 on repeat. suspected demand ischemia from hypotension/possible infection/YANIRA Monitoring on telemetry as above, no CP reported (13) Atrial fibrillation: Plan: continues on metoprolol, eliquis mag 1.5 on abs 05/01, IV replacement ordered and 1.7 on AM labs. additional 1gm IV, increased PO BID and will monitor consideration for increased metoprolol but difficult given increased midodrine for hypotension day prior. consideration for consultation w/ cards pending repeat exam Plan Dispo: continued inpatient stay , encompass once medically stable (possible next 48hrs or so) increased IV diueretics as above, switching to PO abx DVT proh: Eliquis continued Admission and Anticipated Discharge Date Admission Date: April 29, 2023 Supervising Physician Co-Signing Physician Notes The patient was not seen by me. The chart was reviewed. Case discussed with CALVIN Borjas. Agree with assessment and plan Subjective BP little low this AM, given midodrine. RN messaged about low BP, patient asymptomatic, no lightheaded/dizziness. Asked to provide metoprolol then repeat BP and admin diuretics following. Tolerated administration. Not having moved bowels, requested softener. Ordered. Will monitor. Eval w/ brother in room. Reports breathing improved/stable compared to yesterday. Sutton w/ blood tinged urine draining. Reports no chest pain. Updated regarding plan, will touch base w/ CHF provider for tomorrow. He self dc his lasix but discussed likely benefit from low dose w/ his spironolactone to maintain euvolemia and to coordinate w/ [facility] cards at discharge. Discussed switching to Levaquin today to prevent excessive volume, covering for pseudomonas in sputum. RN to obtain MRSA nares for completeness. Will continue to monitor CXR in AM. May need to reach out to pulmonology if any ongoing issues/worsening chest Xray. Will continue daily Lasix for tomorrow but may change dose pending response/further discussion. [facility] in next 48 hours or so pending repeat evaluations. Physical Exam 2 Physical Exam: General: chronically ill appearing male laying in bed, brother at bedside, appears improved/less belly breathing, on 3L spo2 96%, NAD head atraumatic, normocephalic, mmm (lips chapped but mm moist), trachea midline Resp: even/unlabored, decreased wheezing/almost resolved, diminished in the bases, faint basilar crackles but no rales, on 3L NC CV: irregularly irregular, rates 90s, +systolic murmur, trace pedal edema resolving GI: +BS, slight distension but soft/NT : sutton draining blood tinged urine MSK/Neuro: generalized weakness but nonfocal, answering questions appropriately Skin: dressings for skin breakdown c/d/i Psych: AOx3, cooperative Results & Data Results & Data Vital Signs (Past 12 Hours) Vital Signs Temp Pulse Pulse Resp BP Pulse Ox O2 Del Method 05/03/23 07:08 87 18 96 Nasal Cannula 05/03/23 03:38 36.8 C 93 H 18 99/67 L 94 Nasal Cannula 05/02/23 22:46 36.7 C 98 H 18 105/57 L 92 Nasal Cannula 05/02/23 22:04 81 05/02/23 20:35 Nasal Cannula 05/02/23 19:55 36.6 C 102 H 18 112/65 95 Nasal Cannula O2 Flow Rate 05/03/23 07:08 3 05/03/23 03:38 2 05/02/23 22:46 2 05/02/23 22:04 05/02/23 20:35 2 05/02/23 19:55 2 Laboratory Results 05/03/23 06:09 05/03/23 06:09 Mag 1.7 Diagnostic Findings Chest X-Ray 05/03/23 06:30 XR chest 1V portable CLINICAL HISTORY: follow up CHF/pulmonary edema COMPARISON STUDY: Chest CT April 30, 2023. Chest radiograph May 02, 2023. FINDINGS: Prosthetic mitral valve is incidentally noted. There is moderate cardiomegaly. Small bilateral pleural effusions with no pneumothorax. Left lower lung airspace opacity persists. Additional patchy bilateral airspace opacities are again noted. Mild interstitial thickening is present. No significant change is noted since prior exam. Underlying emphysema. IMPRESSION: 1. No significant change in interstitial thickening consistent with pulmonary edema. 2. Multifocal airspace opacities, similar to prior exam. The findings favor pneumonia. 3. Small bilateral pleural effusions. ACT 112: Negative or not required by law. Electronically signed by: Osbaldo Milner M.D. 05/03/2023 9:08 AM PG Care Time/CCT Total # of Minutes Spent Total Time Spent with Patient: Total time spent is greater than 50% in coordination of care (as documented) at patient's floor/unit and/or counseling patient: Coding Level of Care Code 86366 SUB INP/OBS CARE 3/50MIN Diagnoses Chronic systolic (congestive) heart failure I50.22 Alteration consciousness R40.4 Pneumonia J18.9 Hypotension I95.9 Acute kidney injury N17.9 Hyponatremia E87.1 Centrilobular emphysema J43.2 COPD type: emphysema Emphysema type: centrilobular Hypomagnesemia E83.42 Generalized weakness R53.1 Pressure ulcer L89.90 Hyperkalemia E87.5 Elevated troponin R77.8 Permanent atrial fibrillation I48.21 Atrial fibrillation type: permanent (7) Chronic obstructive pulmonary disease COPD type: emphysema Emphysema type: centrilobular Qualified Code(s): J43.2 - Centrilobular emphysema (13) Atrial fibrillation Atrial fibrillation type: permanent Qualified Code(s): I48.21 - Permanent atrial fibrillation
[2023-05-03] MEDS: MIDODRINE HCL 2.5 MG TAB PO SCH ×3 (08:58→17:31)
[2023-05-03] MEDS: APIXABAN 5 MG TABLET PO SCH ×2 (08:58→20:23)
[2023-05-03] MEDS: PANTOprazole 40 MG TAB PO SCH (08:59)
[2023-05-03] MEDS ORDERED: SPIRONOLACTONE 25 MG TAB PO SCH (09:00)
[2023-05-03] MEDS: MAGNESIUM OXIDE 400 MG TAB PO SCH ×2 (09:00→20:21)
[2023-05-03] MEDS: UMECLIDINIUM BROMIDE 62.5MCG/BLISTER 7 PUFFS/INHALER INH SCH (09:01)
[2023-05-03] MEDS: FLUTICASONE/VILANTEROL 200/25MCG 14 PUFFS/INHALER INH SCH (09:01)
--- NOTE | 2023-05-03 09:10 | XRay Report ---
XR chest 1V portable CLINICAL HISTORY: follow up CHF/pulmonary edema COMPARISON STUDY: Chest CT April 30, 2023. Chest radiograph May 02, 2023. FINDINGS: Prosthetic mitral valve is incidentally noted. There is moderate cardiomegaly. Small bilate ral pleural effusions with no pneumothorax. Left lower lung airspace opacity persists. Additional pat fina bilateral airspace opacities are again noted. Mild interstitial thickening is present. No signifi cant change is noted since prior exam. Underlying emphysema. IMPRESSION: 1. No significant change in interstitial thickening consistent with pulmonary edema. 2. Multifocal airspace opacities, similar to prior exam. The findings favor pneumonia. 3. Small bilateral pleural effusions. ACT 112: Negative or not required by law. Electronically signed by: Osbaldo Milner M.D. 05/03/2023 9:08 AM
[2023-05-03] MEDS: FUROSEMIDE 40 MG TAB PO SCH (09:40)
[2023-05-03] MEDS: METOPROLOL SUCC 25MG EXT REL TAB PO SCH (09:41)
[2023-05-03] MEDS: POLYETHYLENE (MIRALAX) 17 GM PACK PO SCH (12:14)
[2023-05-03] MEDS: DOCUSATE SODIUM 100 MG CAP PO SCH ×2 (12:14→20:22)
[2023-05-03] MEDS ORDERED: POTASSIUM CHLORIDE 10 MEQ TABCR PO STA (14:23)
--- NOTE | 2023-05-03 16:06 | Cardiology Consultation ---
Date of Consultation May 03, 2023 Assessment & Plan (1) Atrial fibrillation: (2) Arteriosclerotic coronary artery disease: (3) Hypotension: (4) Right heart failure: Plan 1. Atrial fibrillation: Permanent. Generally speaking he has good rate control. Rates are likely elevated due to an element of dehydration overall poor condition. He seemed to have done well in the past with 50 mg of metoprolol succinate daily. 25 mg daily. No significant bradycardia on his telemetry. 2. Right heart failure: He is known to have a dilated and poorly functioning right ventricle. Likely secondary to left ventricular dysfunction and intrinsic lung disease. Aggressive diuresis could account for some of his hypotension as he is likely very preload dependent. He is not appear to have significant edema and did not report increasing abdominal girth. As such, he does not appear to be markedly volume overloaded. I think we need to be very cautious regarding more aggressive diuresis. 3. Hypotension: Still likely related to an element of intravascular depletion. All of his medicines have been discontinued with the exception of metoprolol which is not a potent antihypertensive. Again, I would caution against aggressive diuresis. 4. Cardiomyopathy: Normal left ventricular systolic function. In the past this was reduced. He was on an aggressive regimen that consisted of Entresto, metoprolol and spironolactone. We will have to see if he requires more aggressive medical therapy or if this would even be tolerated. 5. Coronary artery disease: Nonobstructive. No current symptoms to suggest coronary insufficiency or angina. Preserved LV systolic function without new regional wall motion abnormalities. Continue secondary prevention. History of Present Illness Reason for Consultation: Heart problems Requesting Physician: Bonita Attending Physician: Dmitri Jennings MD History of Present Illness The patient is an 82-year-old gentleman with variety of cardiac issues including permanent atrial fibrillation, mild cardiomyopathy, right heart failure, history of mitral valve replacement and coronary artery disease was admitted to the hospital after suffering a fall. The patient was recently admitted with pneumonia. He reported being quite weak at home. He states that he was attempting to maneuver in a chair when he slid to the floor. He did not have the strength to get up. He was helped up by his son and in the process became quite dizzy and apparently unresponsive for several seconds. Based on this response he was brought to the emergency room for evaluation. He was felt to be quite dehydrated and was notably hyponatremic. It seems that his appetite has been poor and his oral intake has also been compromised. He underwent an element of volume resuscitation. He was hypotensive and many of his medications were discontinued. He was placed on midodrine for blood pressure support. While lying in bed currently claims to be feeling well. He did not endorse symptoms of dizziness or breathing difficulty. He states that at home he generally uses supplemental oxygen at nighttime but not when performing activity during the daytime. No symptoms of chest pain at any time. With ambulation at home he generally does have an element of dyspnea. Most recent disability is simply weakness. Allergies Allergy/AdvReac Type Severity Reaction Status Date / Time cephalexin [From [facility]] Allergy Hives Verified 04/19/23 10:23 Home Medications Medication Instructions Recorded Confirmed Type multivitamin (Daily Multi-Vitamin 1 tab PO QAM 07/20/20 04/29/23 History tablet) Oxygen Home #2 L 10/14/21 04/29/23 Rx magnesium oxide 400 mg (241.3 mg 400 mg PO QAM #30 tabs 01/14/22 04/29/23 Rx magnesium) tablet alfuzosin 10 mg tablet,extended 10 mg PO QPM 07/11/22 04/29/23 History release 24 hr (Uroxatral) spironolactone 25 mg tablet 25 mg PO QAM 07/11/22 04/29/23 History metoprolol succinate 25 mg 12.5 mg (1/2 x 25 mg) PO QAM #45 09/26/22 04/29/23 Rx tablet,extended release 24 hr tabs budesonide-formoterol HFA 160 2 puff inhalation BID #3 Inhalers 09/27/22 04/29/23 Rx mcg-4.5 mcg/actuation aerosol inhaler (Symbicort) tiotropium bromide 2.5 2 puff inhalation QAM #3 Inhalers 10/05/22 04/29/23 Rx mcg/actuation mist for inhalation (Spiriva Respimat) furosemide 40 mg tablet 40 mg PO DAILY PRN weight gain #90 01/12/23 04/29/23 Rx tabs albuterol sulfate 90 mcg/actuation 2 puff inhalation QID PRN 02/07/23 04/29/23 Rx aerosol inhaler (Ventolin HFA) shortness of breath or wheezing #18 grams atorvastatin 20 mg tablet 20 mg PO HS #90 tabs 03/08/23 04/29/23 Rx apixaban 5 mg tablet (Eliquis) 5 mg PO BID 03/20/23 04/29/23 History sacubitril 24 mg-valsartan 26 mg 1 tab PO BID #180 tabs 04/27/23 04/29/23 Rx tablet (Entresto) omeprazole 20 mg capsule,delayed 20 mg PO DAILY 04/29/23 04/29/23 History release Patient History Medical History (Updated 05/04/23 @ 16:14 by Shirley Mesa PA-C) Hematuria Low blood pressure reading Anemia Chronic hypoxemic respiratory failure Hypoxia Right lower lobe pneumonia 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 Recommend 1 year follow up. Heart failure with mid-range ejection fraction Bradycardia Chronic obstructive pulmonary disease History of tobacco use BPH with obstruction/lower urinary tract symptoms Diverticulosis SNHL (sensorineural hearing loss) Seasonal allergies Tinnitus GERD (gastroesophageal reflux disease) Atrial fibrillation Hypertension Hyperlipidemia Surgical History Hx of amputation of lesser toe (~07/2022) Osteomyelitis H/O mitral valve replacement 2016 Status post Mohs surgery left cheek, left arm (squamous cell) Status post anal fissurectomy History of colonoscopy History of tooth extraction History of tonsillectomy History of cardiac radiofrequency ablation History of cardiac cath 03/2015 > no stents Family History Father Family hx colonic polyps Mother Heart disease Other Hypertension No family history of adverse response to anesthesia Social History Smoking Status: Former smoker Tobacco Type: Cigarettes Age Started Using Tobacco: 17; Age Quit Using Tobacco: 62; packs per day: 2; Cigarettes Per Day: 2 packs; Second Hand Exposure: No; Do You Dip or Chew Tobacco: No; Hx Alcohol Use: Yes Alcohol type: beer Alcohol Intake Frequency: 2-3 x/Week Hx Substance Use: No Preferred Language: Georgian Communication Ability: Effective Visual Impairment: Limited Hearing Ability: Normal 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: No Beliefs That Will Affect Care: None marital status: Current Living Situation: Spouse Current Living Situation Comment: Home with current occupational status: retired Other Information That Helps Us Care for You: No Feels Safe at Home: Yes Safety Concerns: Feels Safe At This Time Childhood Exposure to Second-Hand Smoke: Yes Diet: regular Diet Comment: Educated to increase protein, vitamin c d and zinc caffeine: Yes during the past year weight has: decreased > 10 lbs Dental Care, Regularly: Yes Physical Activity Frequency: 1-2 Times per Week Physical Activity Frequency Comment: walks Seatbelt Use: always Sunscreen Use: Yes Do you think of yourself as: straight/heterosexual Assistive Devices: Walker Review of Systems Review of Systems: Per HPI Physical Exam Physical Exam: The patient is alert and oriented. Mood and affect appeared normal. He answered all questions appropriately. HEENT: Pupils are equal and reactive to light and accommodation. Extraocular movements are intact. The sclerae are anicteric. Neuro: Cranial nerves intact Lungs: Clear to auscultation bilaterally. He has good air movement without use of accessory muscles. No rales wheezes or rhonchi. Cardiac: Heart demonstrates an irregular rhythm. Normal S1 and S2. No murmurs on examination. Pulses: The patient has palpable radial pulses bilaterally that are equal in intensity Extremities: There was no evidence of hypoperfusion. There is no cyanosis or clubbing. There is no edema. Missing 1 toe on the right foot Skin: I did not appreciate any rashes on examination today. Extensive ecchymosis Results & Data Vital Signs (Past 12 Hours) Vital Signs Temp Pulse Pulse Pulse Resp BP Pulse Ox 05/03/23 15:34 36.5 C 102 H 18 112/69 96 05/03/23 14:10 94 H 18 97 05/03/23 11:48 36.2 C L 108 H 96 H 106/60 96 05/03/23 11:17 92 05/03/23 10:26 103 H 18 94 05/03/23 09:35 105/57 L 05/03/23 08:06 36.3 C L 104 H 18 93/49 L 100 05/03/23 08:00 102 H 05/03/23 08:00 05/03/23 07:08 87 18 96 O2 Del Method O2 Flow Rate 05/03/23 15:34 Nasal Cannula 3 05/03/23 14:10 Nasal Cannula 3 05/03/23 11:48 Nasal Cannula 3 05/03/23 11:17 1 05/03/23 10:26 Nasal Cannula 3 05/03/23 09:35 05/03/23 08:06 Nasal Cannula, Nebulizer 3 05/03/23 08:00 05/03/23 08:00 Nasal Cannula 2 05/03/23 07:08 Nasal Cannula 3 Laboratory Results Abnormal Lab Results 05/03/23 05/03/23 06:09 12:00 WBC 7.96 RBC 3.71 L Hgb 10.8 L Hct 32.2 L MCV 86.8 MCH 29.1 MCHC 33.5 RDW Std Deviation 43.9 RDW Coeff of [place] 14.0 Plt Count 203 MPV 10.9 Immature Gran % (Auto) 0.6 Neut % (Auto) 76.1 Lymph % (Auto) 8.5 [place] % (Auto) 12.3 Eos % (Auto) 1.9 Baso % (Auto) 0.6 Neut # (Auto) 6.05 Lymph # (Auto) 0.68 L [place] # (Auto) 0.98 H Eos # (Auto) 0.15 Baso # (Auto) 0.05 Immature Gran # (Auto) 0.05 Sodium 130 L Potassium 4.2 Chloride 92 L Carbon Dioxide 30 Anion Gap 8 BUN 11 Creatinine 0.83 Est Cr Clr Drug Dosing 68.6 Est GFR ( Amer) 96.3 Est GFR (Non-Af Amer) 83.1 BUN/Creatinine Ratio 13.3 Glucose 90 Calcium 8.4 L Magnesium 1.7 Nasal Screen MRSA (PCR) Negative Diagnostic Findings 05/01/2023: Normal LV systolic function with ejection fraction 65-70%. Moderate LVH. Moderately reduced RV systolic function. Biatrial dilation. Bioprosthetic mitral valve with mild mitral stenosis. Elevated estimated pulmonary pressures. PG Care Time/CCT Total # of Minutes Spent Total Time Spent with Patient: Total time spent is greater than 50% in coordination of care (as documented) at patient's floor/unit and/or counseling patient: Coding Level of Care Code 51707 INT INP/OBS CARE 3MIN Diagnoses Permanent atrial fibrillation I48.21 Atrial fibrillation type: permanent Arteriosclerotic coronary artery disease I25.10 Hypotension I95.9 Hypotension type: unspecified hypotension type Right heart failure I50.810 (1) Atrial fibrillation Atrial fibrillation type: permanent Qualified Code(s): I48.21 - Permanent atrial fibrillation (3) Hypotension Hypotension type: unspecified hypotension type Qualified Code(s): I95.9 - Hypotension, unspecified
[2023-05-03] MEDS: levoFLOXacin 750 MG TAB PO SCH (16:07)
[2023-05-03] MEDS ORDERED: FUROSEMIDE 40 MG/4 ML VIAL IV SCH (17:00)
[2023-05-03] MEDS ORDERED: FUROSEMIDE 40 MG/4 ML VIAL IV ONE (17:34)
--- NOTE | 2023-05-03 17:39 | Communication Note ---
Date of Service: May 03, 2023 Messaged by essie Cruz cautious aggressive use diuretics. spironolactone to be placed on hold (?underlying cardiac cirrhosis) already got 40mg IV dose Lasix this evening, will place further on hold until evaluated in AM Increasing metoprolol, will plan for 25mg PO for AM/titrate as able Regarding CHF, normal LV systolic function (prior reduced and on aggressive regimen) -- will need to have further monitoring if more aggressive medical therapy even be tolerated Monitor on repeat exam
[2023-05-03] MEDS: guaiFENesin 600 MG TABCR PO SCH (20:22)
[2023-05-04 06:42] LABS: Basophils # (auto) 0.02 K/uL (0.00-0.20); Basophils % (auto) 0.3 %; Eosinophils # (auto) 0.14 K/uL (0.00-0.50); Eosinophils % (auto) 2.2 %; Hematocrit (blood only) 34.6 % (42.0-52.0); Immature Granulocytes # (auto) 0.05 K/uL (0.01-0.20); Immature Granulocytes % (auto) 0.8 %; Lymphocytes # (auto) 0.72 K/uL (1.20-3.40); Lymphocytes % (auto) 11.2 %; Mean Corpuscular Hemoglobin 28.6 pg (25.0-34.0); Mean Corpuscular Hgb Conc 31.8 g/dL (32.0-36.0); Mean Corpuscular Volume 90.1 fL (80.0-100.0); Monocytes # (auto) 0.79 K/uL (0.11-0.59); Monocytes % (auto) 12.3 %; Neutrophils % (auto) 73.2 %; Platelet Count 219 K/uL (130-400); RDW Coefficient of Variation 14.3 % (11.5-14.5); RDW Standard Deviation 46.4 fL (36.4-46.3); Red Blood Count 3.84 M/uL (4.70-6.10); White Blood Count 6.42 K/ul (4.8-10.8)
[2023-05-04 07:04] LABS: Calcium 8.7 mg/dl (8.6-10.3); Est GFR (African American) 94.9 ml/min; Est GFR (Non-African American) 81.9 ml/min; Magnesium 1.6 mg/dl (1.7-2.4); Potassium 4.6 mmol/L (3.5-5.1)
--- NOTE | 2023-05-04 07:10 | XRay Report ---
XR chest 1V portable HISTORY: 82 years-old Male follow up CHF/pulmonary edema acute shortness of breath COMPARISON: 05/03/2023 TECHNIQUE: AP view of the chest FINDINGS: Cardiac silhouette is enlarged. Pulmonary vascular congestion with reticular interstitial densities, small pleural effusions and persistent bibasilar densities. No pneumothorax. The patchy bilateral air space opacities. The bones appear grossly intact. IMPRESSION: 1. Cardiomegaly with persistent pulmonary edema, small pleural effusions with mild bibasilar opacitie s. 2. Mild ill-defined bilateral airspace densities are redemonstrated, previously described as probable pneumonia. ACT 112: Negative or not required by law. The above report was generated using voice recognition software. It may contain grammatical, syntax o r spelling errors. Electronically signed by: Bharat Garrett M.D. 05/04/2023 7:08 AM
[2023-05-04] MEDS: ALBUT/IPRATROP 3MG/0.5MG NEB 3 ML VIAL NEB SCH ×3 (07:17→15:19)
[2023-05-04] MEDS ORDERED: FUROSEMIDE 40 MG/4 ML VIAL IV ONE (07:41)
[2023-05-04] MEDS ORDERED: MAGNESIUM SULFATE / D5W 1 GM/100 ML BAG IV ONE ×2 (07:41→16:22)
--- NOTE | 2023-05-04 07:43 | Hospitalist Progress Note ---
Date of Service May 04, 2023 Assessment & Plan (1) Chronic systolic (congestive) heart failure: Plan: Admitted w/ hypotension/syncope/AMS (?micrurition syncope, has had urinary retention), YANIRA. IVF ordered on admission, additional overnight 05/01-05/02 and w/ worsening respiratory failure/distress, evidence of volume overload on exam Hx of mitral valve replacement , on eliquis/metoprolol but also on entresto/spirnolactone and lasix "prn" at baseline ECHO obtained given syncope w/ picking up prior to admit --> dilated IVC, EF appears unchanged. dilated IVC c/w volume overload. Notably, diuretics had been held on admission due to YANIRA however CT chest did make note interstitial edema/pleural effusions on admission CXR obtained 05/02, volume overloaded. BNP elevated to 1211 Lasix 60mg IV x1, spironolactone resumed Na improved w/ diuretics, net neg 3.4L overnight. Sutton placed given issues w/ retention (?underlying BPH/outlet obstruction, consider flomax once sutton moved/monitor BP for hypotension issues) Cards consulted, did have 7beat run vtach afternoon 05/03, asymptomatic Spironolactone DISCONTINUED, hyperK on admit.Recs to dc at discharge. Remains OFF Entresto. ?off at dc Lasix 40mg IV x 2 on 05/03 for diuresis Zosyn switched to Levaquin to complete course/prevent excessive volume in IV 05/04 REPORTING IMPROVEMENT following additional 40mg IV lasix evening (05/03). CXR w/ improvement on exam,ill defined airspace opacities prior described as PNA, suspected from volume overload Lasix 40mg IV x1 (net negative ~1L at present and will defer evening dose for now). Na improved/stable 131 Metoprolol increased to 25mg and rates stable/low 100s-- monitor for ability to further increase as BP allows --> BP actually 135/71 this afternoon! AHA diet, fluid restriction 1500cc/day Monitor weights, I&O - was up ~3L per I&Os, now ~1.7L - Wt currently 67.1kg from 68.6kg (~65.9kg on admission per records) Labs in AM PT/OT recs for rehab. [facility] planned when med stable (possible next 24hrs if continued improvement) (2) Pneumonia: Plan: WBC elevation on admission w/ CT chest w/ scattered heterogenous airspace opacities most pronounced in the left lower lobe consistent with pneumonia. Also does make note of interstitial edema and small pleural effusions at that time - see CHF as above Sputum cx pseudomonas Zosyn --> Levaquin to complete course/prevent excessive fluid in IV given overload as above Pulmonary toilet, nebs as needed --> CHANGING DUONEBS TO PRN TO PREVENT TACHYCARDIA, NO WHEEZING ON EXAM AT PRESENT TIME Currently 97% on 2L NC (baseline but do not suspect uses all the time) (3) Hypotension: Plan: Hypotensive w/ BP 69/50 on arrival in setting of significant dehydration/poor PO intake and continued use of home BB, spironolactone, entresto, alfuzosin and multiple recent courses of PO prednisone (cannot r/o underlying adrenal insufficiency w/ K 5.3 and hyponatremia on admission, random cortisol only 9 Could consider stress dose steroids if further hypotension, stable this morning but having volume overload from increased HR suspected as above Lactic 1.2 on admit, given 2.5L and continued MF overnight and additional IVF @ 80cc/hr ordered last evening (05/01) for low Na and midodrine increased Midodrine increased to 5mg TID - continued for now (monitor ability to decrease w/ diuretics/rate control as abvoe) Increased lasix IV BID 05/03, given ONE dose today and spironolactone placed on hold/discontinued as outlined Metoprolol increased 25mg daily as above for afib and tolerating BP this afternoon 135/71 and monitor (4) Atrial fibrillation: Plan: continues on metoprolol, eliquis Mag low prior, IV replacement ordered and wnl on repeat and PO mag oxide increased to BID to ensure staying closer to 2, additional IV for 05/04 (did have some diarrhea overnight) Metoprolol increased to 25mg daily as above -- continued monitoring on telemetry (5) Acute kidney injury: Plan: IMPROVED and Cr back to baseline from 1.62 on admission. ?ATN from low BP on admit in setting of diuretics/poor PO intake. Suspected YANIRA pre-renal 2nd to significant dehydration/improved w/ IVF and holding diuretics St cath x 1 for retention >700cc, sutton now in place Renal US w/o obstuction but does note enlarged prostate/bladder wall thickening/trace L perinephric fluid --> FLQ should cover as above, has been on zosyn. UA on admit w/o bacteria Diuretics as outlined and renal function remaining stable 0.86 Renal dose meds/avoid nephrotoxins Entrestro remains on hold and likely holding at dc. Spironolactone DISCONTINUED given hyperkalemia on admission Sutton in place at present, ?voiding trial prior to dc. Likely benefit from flomax/finasteride as above. Consider urology consult if ongoing hematuria since placement (eliquis now placed on hold) vs outpt urology f/u (6) Hematuria: Plan: hematuria following placement of sutton catheter, noting had been st cath prior in that shift, suspect some trauma possible from placement on eliquis for afib, permanent while inpatient as above and place on hold he reports he has had issues w/ this in the past as well and needed his eliquis held -- per review notes jan 2022 during inpatient stay, patient did have hematuria w/ sutton placement and not prior (similar to present case) and suspected from prostatic irritation in setting of eliquis use CT head on admit w/o acute CVA, mentation appearing stable on exam and can continue to monitor on telemetry hgb stable at present (7) Hyponatremia: Plan: Chronic, multifactorial TSH 2.8 Random cortisol 9 Serum osm 271 , diuretics had been on hold -- see above urine osm 616 , urine sodium 172, ?component SIADH Hx cirrhosis, chronic lows however worsened as above w/ additional IVF and concerns for CHF as outlined BNP checked and significant elevation to 1200s , lasix as outlined Repeat BNP trending down, 611s Na stable/improved 131 and will monitor in AM (8) Chronic obstructive pulmonary disease: Plan: Patient is stable on his baseline O2 requirements, do not think that he is experiencing a COPD exacerbation at this time however did report greenish sputum/tx suspected pneumonia as above NO WHEEZING ON EXAM w/ diuretics provided abx to levaquin to complete course as outlined, back to usual 2L NC w/ Spo2 97% Duonebs changed to PRN (9) Hypomagnesemia: Plan: Noted to be 1.6 on arrival, S/P 800 mg PO Mag in the ED, 2gm IV Mag again dipped low prior and IV replacement ordered Mag 1.6 on AM labs, additional IV replacement ordered 05/04. Continue increased mag oxide BID for now, monitor labs in AM (10) Generalized weakness: Plan: Multifactorial -- see above, hypotension/dehydration on admission/possible PNA, however also CHF as outlined ABx as outlined, diuretics PT/OT consulted and planning for [facility] when medially stable (11) Pressure ulcer: Plan: Patient notes recent small pressure ulcer on his buttocks with recent weakness and inactivity Patient noted to have signs of skin breakdown on his sacrum with a small, non- infected pressure ulcer on the right buttocks wound care nurse consulted Turn and position q2h, low air loss bed ordered (12) Hyperkalemia: Plan: K 5.3 in the ED, suspected 2nd to YANIRA/spironolactone use w/ entresto and patient stopped his lasix himself per report Entresto held on admit, likely not resumed at dc at least for now, EF improved on most recent ECHO Spironolactone DISCONTINUED, should be stopped at dc K 4.6 presently and will monitor BMP in AM - IF remaining borderline, likely benefit discussion on diet/low K but hopefully stopping further spironolactone will maintain as I did previously resume for diuresis day prior (13) Elevated troponin: Plan: Initial high sen trop elevated at 27 ---> 22 on repeat. suspected demand ischemia from hypotension/possible infection/YANIRA Monitoring on telemetry as above, no CP reported (14) Alteration consciousness: Plan: Presented to the ED via EMS after experiencing a 30 second long alteration in mental status shortly after his son lifted him up off the ground after sliding off his recliner . Micturition syncope, urine retention as above now w/ sutton CT head/brain NAF TSH wnl No further episodes since arrival to hospital. ?episode of orthostatic hypotension after being raised off the ground w/ low BP ?micturition syncope -- having retention issue Procal w/o elevation Fall precautions to be maintained Eliquis continued for DVT proph (hx afib/mitral valve) 05/02-- volume overloaded as above, diuretics as outlined 05/03, appears alert/oriented, continuing treatment as above 05/04- exam stable, cooperative during encounter, family at bedside (15) Right heart failure: Plan: as above, diuretics as outlined O2 as needed ?benefit outpt sleep study Plan DVT proph: Eliquis placed on hold (got dose AM 05/04), SCDs added Dispo: continued inpatient stay , improvement on exam/CXR, labs stable. If continued improvement/stable in AM can see about getting him to [facility] in next 24hrs or so Admission and Anticipated Discharge Date Admission Date: April 29, 2023 Supervising Physician Co-Signing Physician Notes The patient was not seen by me. The chart was reviewed. Case discussed with CALVIN Borjas. Agree with assessment and plan Subjective Eval this morning, family at bedside. BB increased to 25mg daily, given lasix 40mg IV this morning. Reports breathing improved. Multiple BMs, blow out overnight. Stool softeners to be held. Continued bloody output in sutton, will hold eliquis (he notes this had been held before due to bleeding w/ such). Will monitor for needs/consult urology if needed. Discussed voiding trial at [facility] but would continue for now. Discussed flomax benefit but caution w/ BP. Labs improved/Na improved. Renal function stable. Discussed no further entresto, and no spironolactone for now but continuing lasix at least low dose daily and prevention of hyperkalemia. Discussed [facility] tomorrow if continued improvement but if any decline/worsened will continue inpatient stay. Questions/concerns addressed at this time. Physical Exam 2 Physical Exam: General: chronically ill appearing male laying in bed, appears improved today, NAD, family at bedside head atraumatic, normocephalic, mmm (lips chapped but mm moist), trachea midline Resp: even/unlabored, decreased wheezing/almost resolved, still slightly diminished in bases w/ associated crackles but no cough, on 2L NC CV: irregularly irregular, rates 90s- low 100s, +systolic murmur, no further pedal edema GI: +BS, decreased distension, soft/NT : sutton draining bloody urine MSK/Neuro: generalized weakness but nonfocal, answering questions appropriately, no slurred speech/facial droop Skin: dressings for skin breakdown c/d/i Psych: AOx3, cooperative Results & Data Results & Data Vital Signs (Past 12 Hours) Vital Signs Temp Pulse Pulse Resp BP BP Pulse Ox 05/04/23 07:21 36.2 C L 91 H 20 100/63 94 05/04/23 07:18 91 H 18 94 05/04/23 03:23 36.3 C L 104 H 19 110/76 95 05/03/23 23:28 36.4 C L 91 H 18 90/55 L 98 05/03/23 20:41 103 H 18 98 05/03/23 20:25 05/03/23 20:02 36.3 C L 98 H 18 96/50 L 90 O2 Del Method O2 Flow Rate 05/04/23 07:21 Nasal Cannula 2 05/04/23 07:18 Nasal Cannula 2 05/04/23 03:23 Nasal Cannula 2 05/03/23 23:28 Nasal Cannula 2 05/03/23 20:41 Nasal Cannula 3 05/03/23 20:25 Nasal Cannula 2 05/03/23 20:02 Nasal Cannula 2 Laboratory Results 05/04/23 05:51 05/04/23 05:51 Diagnostic Findings Chest X-Ray 05/04/23 06:30 XR chest 1V portable HISTORY: 82 years-old Male follow up CHF/pulmonary edema acute shortness of breath COMPARISON: 05/03/2023 TECHNIQUE: AP view of the chest FINDINGS: Cardiac silhouette is enlarged. Pulmonary vascular congestion with reticular interstitial densities, small pleural effusions and persistent bibasilar densities. No pneumothorax. The patchy bilateral airspace opacities. The bones appear grossly intact. IMPRESSION: 1. Cardiomegaly with persistent pulmonary edema, small pleural effusions with mild bibasilar opacities. 2. Mild ill-defined bilateral airspace densities are redemonstrated, previously described as probable pneumonia. ACT 112: Negative or not required by law. The above report was generated using voice recognition software. It may contain grammatical, syntax or spelling errors. Electronically signed by: Bharat Garrett M.D. 05/04/2023 7:08 AM PG Care Time/CCT Total # of Minutes Spent Total Time Spent with Patient: Total time spent is greater than 50% in coordination of care (as documented) at patient's floor/unit and/or counseling patient: Coding Level of Care Code 41299 SUB INP/OBS CARE 3/50MIN Diagnoses Chronic systolic (congestive) heart failure I50.22 Pneumonia J18.9 Hypotension I95.9 Permanent atrial fibrillation I48.21 Atrial fibrillation type: permanent Acute kidney injury N17.9 Hematuria R31.9 Hyponatremia E87.1 Centrilobular emphysema J43.2 COPD type: emphysema Emphysema type: centrilobular Hypomagnesemia E83.42 Generalized weakness R53.1 Pressure ulcer L89.90 Hyperkalemia E87.5 Elevated troponin R77.8 Alteration consciousness R40.4 Right heart failure I50.810 (4) Atrial fibrillation Atrial fibrillation type: permanent Qualified Code(s): I48.21 - Permanent atrial fibrillation (8) Chronic obstructive pulmonary disease COPD type: emphysema Emphysema type: centrilobular Qualified Code(s): J43.2 - Centrilobular emphysema
[2023-05-04] MEDS: APIXABAN 5 MG TABLET PO SCH (08:59)
[2023-05-04] MEDS: PANTOprazole 40 MG TAB PO SCH (08:59)
[2023-05-04] MEDS: guaiFENesin 600 MG TABCR PO SCH ×2 (09:00→19:57)
[2023-05-04] MEDS ORDERED: METOPROLOL SUCC 25MG EXT REL TAB PO SCH (09:00)
[2023-05-04] MEDS: MAGNESIUM OXIDE 400 MG TAB PO SCH ×2 (09:00→19:57)
[2023-05-04] MEDS: POLYETHYLENE (MIRALAX) 17 GM PACK PO SCH (09:03)
[2023-05-04] MEDS: DOCUSATE SODIUM 100 MG CAP PO SCH (09:03)
[2023-05-04] MEDS: MIDODRINE HCL 2.5 MG TAB PO SCH ×3 (09:03→17:10)
[2023-05-04] MEDS: FLUTICASONE/VILANTEROL 200/25MCG 14 PUFFS/INHALER INH SCH (09:04)
[2023-05-04] MEDS: UMECLIDINIUM BROMIDE 62.5MCG/BLISTER 7 PUFFS/INHALER INH SCH (09:04)
[2023-05-04] MEDS ORDERED: ALBUT/IPRATROP 3MG/0.5MG NEB 3 ML VIAL NEB PRN (16:09)
[2023-05-04] MEDS ORDERED: POLYETHYLENE (MIRALAX) 17 GM PACK PO PRN (16:10)
[2023-05-04] MEDS: levoFLOXacin 750 MG TAB PO SCH (17:10)
--- NOTE | 2023-05-04 19:26 | Cardiology Progress Note ---
Date of Service May 04, 2023 Assessment & Plan (1) Atrial fibrillation: (2) Arteriosclerotic coronary artery disease: (3) Hypotension: (4) Right heart failure: Plan 1. Atrial fibrillation: Permanent. This morning. However, rates have not improved much. Very likely will need to increase to his usual outpatient dose of 50 mg daily. Blood pressure improved today. 2. Right heart failure: He appears well compensated. Again, we will need to monitor diuresis closely. 3. Hypotension: Improved. 4. Cardiomyopathy: Normal left ventricular systolic function. Spironolactone and Entresto currently discontinued due to hypotension. Will need to monitor for opportunity to reinstitute therapy. 5. Coronary artery disease: Nonobstructive. No current symptoms to suggest coronary insufficiency or angina. Preserved LV systolic function without new regional wall motion abnormalities. Continue secondary prevention. Admission and Anticipated Discharge Date Admission Date: April 29, 2023 Subjective This afternoon the patient claimed he feeling better. His main complaint was frequent bowel movements and fecal incontinence after receiving stool softener. He was not ambulatory today. He denies any breathing difficulty currently. No sense of palpitation. No chest pain. Review of Systems Review of Systems: Per HPI Physical Exam Physical Exam: The patient is alert and oriented. Mood and affect appeared normal. He answered all questions appropriately. HEENT: Pupils are equal and reactive to light and accommodation. Extraocular movements are intact. The sclerae are anicteric. Neuro: Cranial nerves intact Lungs: Normal respiratory effort Cardiac: Heart demonstrates an irregular rhythm. Extremities: There was no evidence of hypoperfusion. There is no cyanosis or clubbing. There is no edema. Missing 1 toe on the right foot. Protective boots in place. Skin: I did not appreciate any rashes on examination today. Extensive ecchymosis Results & Data Vital Signs (Past 12 Hours) Vital Signs Temp Pulse Pulse Pulse Resp BP Pulse Ox 05/04/23 16:00 102 H 05/04/23 15:32 36.5 C 102 H 20 135/71 97 05/04/23 11:27 36.4 C L 108 H 17 122/74 93 05/04/23 10:54 100 H 20 97 05/04/23 08:00 82 05/04/23 08:00 05/04/23 07:21 36.2 C L 91 H 20 100/63 94 O2 Del Method O2 Flow Rate 05/04/23 16:00 05/04/23 15:32 Nasal Cannula 2 05/04/23 11:27 Room Air 05/04/23 10:54 Nasal Cannula 2 05/04/23 08:00 05/04/23 08:00 Nasal Cannula 2 05/04/23 07:21 Nasal Cannula 2 Laboratory Results Abnormal Lab Results 05/04/23 05:51 WBC 6.42 RBC 3.84 L Hgb 11.0 L Hct 34.6 L MCV 90.1 MCH 28.6 MCHC 31.8 L RDW Std Deviation 46.4 H RDW Coeff of [place] 14.3 Plt Count 219 MPV 11.0 Immature Gran % (Auto) 0.8 Neut % (Auto) 73.2 Lymph % (Auto) 11.2 [place] % (Auto) 12.3 Eos % (Auto) 2.2 Baso % (Auto) 0.3 Neut # (Auto) 4.70 Lymph # (Auto) 0.72 L [place] # (Auto) 0.79 H Eos # (Auto) 0.14 Baso # (Auto) 0.02 Immature Gran # (Auto) 0.05 Sodium 131 L Potassium 4.6 Chloride 90 L Carbon Dioxide 35 H Anion Gap 6 BUN 12 Creatinine 0.86 Est Cr Clr Drug Dosing 65.0 Est GFR ( Amer) 94.9 Est GFR (Non-Af Amer) 81.9 BUN/Creatinine Ratio 14.0 Glucose 87 Osmolality 269 L Calcium 8.7 Magnesium 1.6 L B-Natriuretic Peptide 655 H PG Care Time/CCT Total # of Minutes Spent Total Time Spent with Patient: Total time spent is greater than 50% in coordination of care (as documented) at patient's floor/unit and/or counseling patient: Coding Level of Care Code 65650 SUB INP/OBS CARE 2/35MIN Diagnoses Permanent atrial fibrillation I48.21 Atrial fibrillation type: permanent Arteriosclerotic coronary artery disease I25.10 Hypotension I95.9 Hypotension type: unspecified hypotension type Right heart failure I50.810 (1) Atrial fibrillation Atrial fibrillation type: permanent Qualified Code(s): I48.21 - Permanent atrial fibrillation (3) Hypotension Hypotension type: unspecified hypotension type Qualified Code(s): I95.9 - Hypotension, unspecified
[2023-05-04] MEDS ORDERED: METOPROLOL SUCC 25MG EXT REL TAB PO ONE (19:27)
[2023-05-05 06:32] LABS: Hematocrit (blood only) 32.8 % (42.0-52.0); Hemoglobin 10.5 g/dl (14.0-18.0); Mean Corpuscular Hemoglobin 28.5 pg (25.0-34.0); Mean Corpuscular Volume 88.9 fL (80.0-100.0); Mean Platelet Volume 10.9 fL (9.4-12.4); Platelet Count 221 K/uL (130-400); RDW Coefficient of Variation 14.3 % (11.5-14.5); RDW Standard Deviation 45.9 fL (36.4-46.3); Red Blood Count 3.69 M/uL (4.70-6.10); White Blood Count 6.99 K/ul (4.8-10.8)
[2023-05-05 07:13] LABS: BUN Creatinine Ratio 14.3 (10-20); Calcium 8.6 mg/dl (8.6-10.3); Creatinine Clr Calc Pharmacy 66.2 ml/min; Est GFR (African American) 95.8 ml/min; Est GFR (Non-African American) 82.7 ml/min; Magnesium 1.9 mg/dl (1.7-2.4); Potassium 4.1 mmol/L (3.5-5.1)
--- NOTE | 2023-05-05 07:41 | XRay Report ---
XR chest 1V portable CLINICAL HISTORY: f/u COMPARISON STUDY: Chest CT April 30, 2023. Chest radiograph May 04, 2023. FINDINGS: There is no pneumothorax. Small bilateral pleural effusions are similar to prior exam. Mult ifocal bilateral airspace opacities are also similar to prior study. Cardiomegaly is again noted. The re is a prosthetic cardiac valve. There is pulmonary vascular congestion without overt pulmonary arthur a. There is underlying emphysema. IMPRESSION: 1. No significant change in multifocal airspace opacities suggestive of pneumonia. 2. No change in small bilateral pleural effusions. 3. Emphysema. ACT 112: Negative or not required by law. Electronically signed by: Osbaldo Milner M.D. 05/05/2023 7:39 AM
--- NOTE | 2023-05-05 07:58 | Hospitalist Progress Note ---
Date of Service May 05, 2023 Assessment & Plan (1) Chronic systolic (congestive) heart failure: Plan: Admitted w/ hypotension/syncope/AMS (?micrurition syncope, has had urinary retention), YANIRA. IVF ordered on admission, additional overnight 05/01-05/02 and w/ worsening respiratory failure/distress, evidence of volume overload on exam Hx of mitral valve replacement , on eliquis/metoprolol but also on entresto/spirnolactone and lasix "prn" at baseline ECHO obtained given syncope w/ picking up prior to admit --> dilated IVC, EF appears unchanged. dilated IVC c/w volume overload. Notably, diuretics had been held on admission due to YANIRA however CT chest did make note interstitial edema/pleural effusions on admission CXR obtained 05/02, volume overloaded. BNP elevated to 1211 w// increased O2 demands to 5-6L NC Lasix 60mg IV x1, spironolactone resumed Na improved w/ diuretics, net neg 3.4L overnight. Sutton placed given issues w/ retention (?underlying BPH/outlet obstruction, consider flomax once sutton moved/monitor BP for hypotension issues) Cards consulted, did have 7beat run vtach afternoon 05/03, asymptomatic Spironolactone DISCONTINUED, hyperK on admit.Recs to dc at discharge. Remains OFF Entresto. ?off at dc Lasix 40mg IV x 2 on 05/03 for diuresis Zosyn switched to Levaquin to complete course/prevent excessive volume in IV 05/04 REPORTING IMPROVEMENT following additional 40mg IV lasix evening (05/03). CXR w/ improvement on exam,ill defined airspace opacities prior described as PNA, suspected from volume overload Lasix 40mg IV x1 (net negative ~1L at present and will defer evening dose for now). Na improved/stable 131 Metoprolol increased to 25mg and rates stable/low 100s-- monitor for ability to further increase as BP allows --> BP actually 135/71 this afternoon! 05/05 Metoprolol increased to 50mg daily (was given additional 25mg PO x 1 last evening for continued elevated rates). BP low 90s/60s since that time, 92/62 this morning but appears HRs better controlled and BP 103/66 around lunchtime and asymptomatic Only net negative 670cc day prior Monitor weights, I&O. AHA diet/fluid restriction Notable patient was up ~3L on cumulative I&O, currently 2L w/ diuresis as above Wt currently 66.7kg from 67.1kg (~65.9kg on admission per records but was up to 68.6kg 05/02) Lasix 40mg PO x 1 to be provided, cautious diuretics per cards but has been responding nicely/weights down/renal function stable and CXRs improved w/ increased diuretics previously [facility] planned when medically stable (2) Pneumonia: Plan: WBC elevation on admission w/ CT chest w/ scattered heterogenous airspace opacities most pronounced in the left lower lobe consistent with pneumonia. Also does make note of interstitial edema and small pleural effusions at that time - see CHF as above Sputum cx pseudomonas Zosyn --> Levaquin to complete course/prevent excessive fluid in IV given overload as above. Can dc after tomorrow dose as will have completed 7 day course Continue pulmonary toilet, Nebs changed to prn to prevent elevated HR/tachycardia w/ his afib and increased metoprolol as above for rate control. No wheezing on exam/on baseline 2L Monitor c2v in AM (3) Hypotension: Plan: Hypotensive w/ BP 69/50 on arrival in setting of significant dehydration/poor PO intake and continued use of home BB, spironolactone, entresto, alfuzosin and multiple recent courses of PO prednisone (cannot r/o underlying adrenal insufficiency w/ K 5.3 and hyponatremia on admission, random cortisol only 9 Could consider stress dose steroids if further hypotension, stable this morning but having volume overload from increased HR suspected as above Lactic 1.2 on admit, given 2.5L and continued MF overnight and additional IVF @ 80cc/hr ordered last evening (05/01) for low Na and midodrine increased Midodrine increased to 5mg TID - continued for now (monitor ability to decrease w/ diuretics/rate control as abvoe) Increased lasix IV BID 05/03, decreased to ONCE daily 05/04 and held for this morning given BP w/ increased metoprolol overnight, currently 50mg daily BP presently 103/66 and will attempt lasix 40mg PO x 1 and monitor response (4) Atrial fibrillation: Plan: continues on metoprolol, eliquis Mag low prior, IV replacement ordered and wnl on repeat and PO mag oxide increased to BID to ensure staying closer to 2, additional IV for 05/04 (did have some diarrhea overnight) Metoprolol FURTHER increased to 50mg daily 05/05 (given extra 25mg PO x 1 evening 05/04) Improvement in rate control w/ increased BB (5) Acute kidney injury: Plan: IMPROVED and Cr back to baseline from 1.62 on admission. ?ATN from low BP on admit in setting of diuretics/poor PO intake. Suspected YANIRA pre-renal 2nd to significant dehydration/improved w/ IVF and holding diuretics St cath x 1 for retention >700cc, sutton now in place Renal US w/o obstuction but does note enlarged prostate/bladder wall thickening/trace L perinephric fluid --> FLQ should cover as above, has been on zosyn. UA on admit w/o bacteria Diuretics as outlined and renal function remaining stable Renal dose meds/avoid nephrotoxins Entrestro remains on hold and likely holding at dc. Spironolactone DISCONTINUED given hyperkalemia on admission Sutton in place at present, ?voiding trial prior to dc. Likely benefit from flomax/finasteride as above. Consider urology consult if ongoing hematuria since placement (eliquis now placed on hold) vs outpt urology f/u (6) Hematuria: Plan: hematuria following placement of sutton catheter, noting had been st cath prior in that shift, suspect some trauma possible from placement on eliquis for afib, permanent while inpatient as above and place on hold (last dose AM 05/04) Pt reports he has had issues w/ this in the past as well and needed his eliquis held -- per review notes jan 2022 during inpatient stay, patient did have hematuria w/ sutton placement and not prior (similar to present case) and suspected from prostatic irritation in setting of eliquis use CT head on admit w/o acute CVA, mentation appearing stable on exam and can continue to monitor on telemetry hgb stable but decreased to 10.5 and again, eliquis now on hold monitor for need for consultation w/ urology for any ongoing issues. Will have nursing repeat UA for eval (7) Hyponatremia: Plan: Chronic, multifactorial TSH 2.8 Random cortisol 9 Serum osm 271 , diuretics had been on hold -- see above urine osm 616 , urine sodium 172, ?component SIADH Hx cirrhosis, chronic lows however worsened as above w/ additional IVF and concerns for CHF as outlined BNP checked and significant elevation to 1200s , lasix as outlined above and decreased/now getting one time 40mg PO dose Repeat BNP 611 day prior and will montior in AM Na worse on AM labs however stable compared to priors and will monitor in AM w/ PO lasix. ?increased diuretics as previously giving w/ improvement in Na Monitor labs in AM (8) Chronic obstructive pulmonary disease: Plan: Patient is stable on his baseline O2 requirements, do not think that he is experiencing a COPD exacerbation at this time however did report greenish sputum/tx suspected pneumonia as above NO WHEEZING ON EXAM w/ diuretics provided abx to levaquin to complete course as outlined, back to usual 2L NC Duonebs changed to PRN as outlined above Reports decreased sputum production/clearing up, on baseline 2L. Can dc abx tomorrow as will have completed more than ample course as long as UA w/o evidence for infection (neg on admit) (9) Hypomagnesemia: Plan: Noted to be 1.6 on arrival, S/P 800 mg PO Mag in the ED, 2gm IV again low 05/04 and IV replacement ordered Mag 1.9 on am labs and remains on mag oxide increased to BID (?contributing to constipation, cdiff ordered for eval given abx use recently -- can consider SLOW MAG if needed) Montior labs in AM (10) Generalized weakness: Plan: Multifactorial -- see above, hypotension/dehydration on admission/possible PNA, however also CHF as outlined ABx as outlined, diuretics PT/OT consulted and planning for [facility] when medially stable (11) Pressure ulcer: Plan: Patient notes recent small pressure ulcer on his buttocks with recent weakness and inactivity Patient noted to have signs of skin breakdown on his sacrum with a small, non- infected pressure ulcer on the right buttocks wound care nurse consulted Turn and position q2h, low air loss bed ordered (12) Hyperkalemia: Plan: K 5.3 in the ED, suspected 2nd to YANIRA/spironolactone use w/ entresto and patient stopped his lasix himself per report Entresto held on admit, likely not resumed at dc at least for now, EF improved on most recent ECHO Spironolactone DISCONTINUED, should be stopped at dc K 4.1 and improved presently and will monitor BMP in AM - IF remaining borderline, likely benefit discussion on diet/low K but hopefully stopping further spironolactone will maintain as I did previously resume for diuresis day prior (13) Elevated troponin: Plan: Initial high sen trop elevated at 27 ---> 22 on repeat. suspected demand ischemia from hypotension/possible infection/YANIRA Monitoring on telemetry as above, no CP reported (14) Alteration consciousness: Plan: Presented to the ED via EMS after experiencing a 30 second long alteration in mental status shortly after his son lifted him up off the ground after sliding off his recliner . Micturition syncope, urine retention as above now w/ sutton CT head/brain NAF TSH wnl No further episodes since arrival to hospital. ?episode of orthostatic hypotension after being raised off the ground w/ low BP ?micturition syncope -- having retention issue Procal w/o elevation Fall precautions to be maintained Eliquis continued for DVT proph (hx afib/mitral valve) Appears alert/oriented, baseline cognition at present time (15) Right heart failure: Plan: as above, diuretics as outlined O2 as needed ?benefit outpt sleep study Plan DVT proph: Eliquis placed on hold (got dose AM 05/04), SCDs added Dispo: continued inpatient stay , [facility] once medically stable (accepted) MOnitor ongoing hematuria, consider urology consult if not clearing w/ holding eliquis Admission and Anticipated Discharge Date Admission Date: April 29, 2023 Subjective Patient evaluated around lunch, doing alright. Having some increased diarrhea, cdiff ordered for eval. Holding further stool softeners. Breathing stable. HRs improved w/ increased dose metoprolol. No lightheaded/dizziness. Will plan one time dose lasix 40mg po while inpatient/monitor response. He notes urine output did decrease last night -- discussed did not get evening dose lasix yesterday. [facility] possible tomorrow vs Monday but will monitor. Sutton continues w/ bloody drainage, eliquis remains on hold. If ongoing issues will touch base w/ urology. Questions/concerns addressed at this time. No fever/chills, chest pain reported. Physical Exam 2 Physical Exam: General: chronically ill appearing male laying in bed, appears improved today, NAD, on baseline 2L head atraumatic, normocephalic, mmm/slightly chapped, trachea midline Resp: even/unlabored but decreased/diminished in the bases/fine bisilar crackles, no overt wheezing/rales, no tachypnea, on 2L NC 94% CV: irregularly irregular, rates 60-90s, +systolic murmur, no further pedal edema GI: +BS, decreased distension, soft/NT : sutton draining bloody urine MSK/Neuro: generalized weakness but nonfocal, answering questions appropriately, no slurred speech/facial droop Skin: dressings for skin breakdown c/d/i Psych: AOx3, cooperative Results & Data Results & Data Vital Signs (Past 12 Hours) Vital Signs Temp Pulse Pulse Resp BP Pulse Ox O2 Del Method 05/05/23 07:31 82 05/05/23 03:27 36.4 C L 90 18 92/62 L 97 Nasal Cannula 05/04/23 23:05 36.6 C 91 H 16 98/55 L 95 Nasal Cannula 05/04/23 22:03 96 H 05/04/23 20:00 Nasal Cannula O2 Flow Rate 05/05/23 07:31 05/05/23 03:27 2 05/04/23 23:05 2.0 05/04/23 22:03 05/04/23 20:00 2 Laboratory Results 05/05/23 06:00 05/05/23 06:00 Mag 1.9 PG Care Time/CCT Total # of Minutes Spent Total Time Spent with Patient: Total time spent is greater than 50% in coordination of care (as documented) at patient's floor/unit and/or counseling patient: Coding Level of Care Code 31910 SUB INP/OBS CARE 3/50MIN Diagnoses Chronic systolic (congestive) heart failure I50.22 Pneumonia J18.9 Hypotension I95.9 Permanent atrial fibrillation I48.21 Atrial fibrillation type: permanent Acute kidney injury N17.9 Hematuria R31.9 Hyponatremia E87.1 Centrilobular emphysema J43.2 COPD type: emphysema Emphysema type: centrilobular Hypomagnesemia E83.42 Generalized weakness R53.1 Pressure ulcer L89.90 Hyperkalemia E87.5 Elevated troponin R77.8 Alteration consciousness R40.4 Right heart failure I50.810 (4) Atrial fibrillation Atrial fibrillation type: permanent Qualified Code(s): I48.21 - Permanent atrial fibrillation (8) Chronic obstructive pulmonary disease COPD type: emphysema Emphysema type: centrilobular Qualified Code(s): J43.2 - Centrilobular emphysema
[2023-05-05] MEDS: MAGNESIUM OXIDE 400 MG TAB PO SCH (08:13)
[2023-05-05] MEDS: METOPROLOL SUCC 50MG EXT REL TAB PO SCH (08:13)
[2023-05-05] MEDS: guaiFENesin 600 MG TABCR PO SCH ×2 (08:13→21:40)
[2023-05-05] MEDS: MIDODRINE HCL 2.5 MG TAB PO SCH ×3 (08:13→17:39)
[2023-05-05] MEDS: PANTOprazole 40 MG TAB PO SCH (08:13)
[2023-05-05] MEDS: FLUTICASONE/VILANTEROL 200/25MCG 14 PUFFS/INHALER INH SCH (08:14)
[2023-05-05] MEDS: UMECLIDINIUM BROMIDE 62.5MCG/BLISTER 7 PUFFS/INHALER INH SCH (08:14)
[2023-05-05] MEDS ORDERED: FUROSEMIDE 40 MG TAB PO ONE (12:17)
--- NOTE | 2023-05-05 13:27 | Cardiology Progress Note ---
Date of Service May 05, 2023 Assessment & Plan (1) Atrial fibrillation: (2) Arteriosclerotic coronary artery disease: (3) Hypotension: (4) Right heart failure: Plan 1. Atrial fibrillation: Permanent. While in bed his rates appear to be adequate. Metoprolol was returned to his outpatient dose today. We can simply monitor his rates over time. Eliquis currently being held due to hematuria. Restart the earliest opportunity. 2. Right heart failure: He appears well compensated. He will receive another dose of diuretic today. If he is hypotensive after diuresis at suggests that he is preload dependent. Does not appear to be markedly hypervolemic. We will need to be cautious moving forward. 3. Hypotension: Improved. 4. Cardiomyopathy: Normal left ventricular systolic function. Spironolactone and Entresto currently discontinued due to hypotension. Will need to monitor for opportunity to reinstitute therapy. 5. Coronary artery disease: Nonobstructive. No current symptoms to suggest coronary insufficiency or angina. Preserved LV systolic function without new regional wall motion abnormalities. Continue secondary prevention. Will continue to increase metoprolol as necessary to control his heart rate. I would be cautious with diuresis given his right ventricular dysfunction. Monitoring of electrolytes, blood pressure and renal function will be paramount. I will be away from the hospital for the next 2 days. If there are additional questions regarding his management please contact Dr. Dominique who will be covering the service Admission and Anticipated Discharge Date Admission Date: April 29, 2023 Subjective The patient's main complaint today continues to be his bowels. Continue diarrhea loose stools. Frequent spasms as well. No chest pain. No sense of palpitation. No dizziness or lightheadedness. He has not been ambulatory. Review of Systems Review of Systems: Per HPI Physical Exam Physical Exam: The patient is alert and oriented. Mood and affect appeared normal. He answered all questions appropriately. HEENT: Pupils are equal and reactive to light and accommodation. Extraocular movements are intact. The sclerae are anicteric. Neuro: Cranial nerves intact Lungs: Normal respiratory effort Cardiac: Heart demonstrates an irregular rhythm. Extremities: There was no evidence of hypoperfusion. There is no cyanosis or clubbing. There is no edema. Missing 1 toe on the right foot. Protective boots in place. Skin: I did not appreciate any rashes on examination today. Extensive ecchy mosis Results & Data Vital Signs (Past 12 Hours) Vital Signs Temp Pulse Pulse Resp BP BP Pulse Ox 05/05/23 10:59 36.3 C L 66 18 103/66 94 05/05/23 07:36 36.2 C L 87 23 97/66 L 97 05/05/23 07:31 82 05/05/23 03:27 36.4 C L 90 18 92/62 L 97 O2 Del Method O2 Flow Rate 05/05/23 10:59 Nasal Cannula 2 05/05/23 07:36 Nasal Cannula 2 05/05/23 07:31 05/05/23 03:27 Nasal Cannula 2 Laboratory Results Abnormal Lab Results 05/05/23 06:00 WBC 6.99 RBC 3.69 L Hgb 10.5 L Hct 32.8 L MCV 88.9 MCH 28.5 MCHC 32.0 RDW Std Deviation 45.9 RDW Coeff of Kamron 14.3 Plt Count 221 MPV 10.9 Sodium 129 L Potassium 4.1 Chloride 90 L Carbon Dioxide 33 H Anion Gap 6 BUN 12 Creatinine 0.84 Est Cr Clr Drug Dosing 66.2 Est GFR ( Amer) 95.8 Est GFR (Non-Af Amer) 82.7 BUN/Creatinine Ratio 14.3 Glucose 96 Calcium 8.6 Magnesium 1.9 PG Care Time/CCT Total # of Minutes Spent Total Time Spent with Patient: Total time spent is greater than 50% in coordination of care (as documented) at patient's floor/unit and/or counseling patient: Coding Level of Care Code 68599 SUB INP/OBS CARE 2/35MIN Diagnoses Permanent atrial fibrillation I48.21 Atrial fibrillation type: permanent Arteriosclerotic coronary artery disease I25.10 Hypotension I95.9 Hypotension type: unspecified hypotension type Right heart failure I50.810 (1) Atrial fibrillation Atrial fibrillation type: permanent Qualified Code(s): I48.21 - Permanent atrial fibrillation (3) Hypotension Hypotension type: unspecified hypotension type Qualified Code(s): I95.9 - Hypotension, unspecified
[2023-05-05 17:30] LABS: Appearance Urine Turbid (Clear); Blood Urine 3+ (Negative); Color Urine Red; Glucose Urine UA Negative (Negative); Ketones Urine Negative (Negative); Leukocyte Esterase Urine 2+ (Negative); Nitrite Urine Positive (Negative); Specific Gravity Urine 1.018 (1.000-1.030); Urobilinogen Urine Negative (Negative); pH Urine >= 9.0 (4.5-7.5)
[2023-05-05 17:32] LABS: Bilirubin Urine 1+ (Negative); Protein Urine 2+ (Negative)
[2023-05-05] MEDS: levoFLOXacin 750 MG TAB PO SCH (17:39)
[2023-05-05 17:42] LABS: Bacteria Urine 1+ (Negative); Epithelial Cell Urine 0-5 /lpf (0-5); Hyaline Casts Urine 0-5 /lpf (0-5); RBC Urine >30 /hpf (0-4)
[2023-05-05] MEDS: MAGNESIUM CHLORIDE W/CALCIUM 64MG DELAYED REL TAB PO SCH (21:40)
[2023-05-06 06:09] LABS: Basophils # (auto) 0.05 K/uL (0.00-0.20); Basophils % (auto) 0.7 %; Eosinophils # (auto) 0.16 K/uL (0.00-0.50); Eosinophils % (auto) 2.2 %; Hematocrit (blood only) 33.4 % (42.0-52.0); Hemoglobin 10.8 g/dl (14.0-18.0); Immature Granulocytes # (auto) 0.07 K/uL (0.01-0.20); Lymphocytes # (auto) 0.94 K/uL (1.20-3.40); Lymphocytes % (auto) 12.9 %; Mean Corpuscular Hemoglobin 28.8 pg (25.0-34.0); Mean Corpuscular Hgb Conc 32.3 g/dL (32.0-36.0); Mean Corpuscular Volume 89.1 fL (80.0-100.0); Monocytes # (auto) 1.03 K/uL (0.11-0.59); Monocytes % (auto) 14.2 %; Neutrophils # (auto) 5.02 K/uL (1.40-6.50); Platelet Count 235 K/uL (130-400); RDW Coefficient of Variation 14.4 % (11.5-14.5); RDW Standard Deviation 45.8 fL (36.4-46.3); Red Blood Count 3.75 M/uL (4.70-6.10); White Blood Count 7.27 K/ul (4.8-10.8)
[2023-05-06 06:14] LABS: Albumin Globulin Ratio 1.2 (0.9-2); Bilirubin,Total 0.7 mg/dl (0.2-1.0); Calcium 8.8 mg/dl (8.6-10.3); Creatinine Clr Calc Pharmacy 51.5 ml/min; Est GFR (African American) 74.7 ml/min; Est GFR (Non-African American) 64.5 ml/min; Globulin 2.5 gm/dl (2.5-4.0); Magnesium 1.7 mg/dl (1.7-2.4); Potassium 4.5 mmol/L (3.5-5.1); Total Protein 5.5 gm/dl (6.0-8.3)
[2023-05-06 06:33] LABS: INR 1.2 (0.9-1.1); Prothrombin Time 12.6 Seconds (9.0-12.0)
[2023-05-06] MEDS: FUROSEMIDE 40 MG TAB PO SCH ×2 (07:22→17:42)
--- NOTE | 2023-05-06 07:47 | Hospitalist Progress Note ---
Date of Service May 06, 2023 Assessment & Plan (1) Chronic systolic (congestive) heart failure: Plan: Admitted w/ hypotension/syncope/AMS (?micrurition syncope, has had urinary retention), YANIRA. IVF ordered on admission, additional overnight 05/01-05/02 and w/ worsening respiratory failure/distress, evidence of volume overload on exam Hx of mitral valve replacement , on eliquis/metoprolol but also on entresto/spirnolactone and lasix "prn" at baseline ECHO obtained given syncope w/ picking up prior to admit --> dilated IVC, EF appears unchanged. dilated IVC c/w volume overload. Notably, diuretics had been held on admission due to YANIRA however CT chest did make note interstitial edema/pleural effusions on admission Volume overloaded on exam 05/02 and CXR obtained and evidence of pulm vascular congestion/overload and O2 requirement up to 5-6L NC BNP checked, elevated to 1211 Lasix 60mg IV x1, spironolactone resumed Na improved w/ diuretics, net neg 3.4L overnight. Sutton placed given issues w/ retention (?underlying BPH/outlet obstruction, consider flomax once sutton moved/monitor BP for hypotension issues) Cards consulted, did have 7beat run vtach afternoon 05/03, asymptomatic Spironolactone DISCONTINUED, hyperK on admit.Recs to dc at discharge. Remains OFF Entresto at present time Lasix 40mg IV x 2 on 05/03 Lasix 40mg IV x 1 on 05/04 and increase metoprolol to 25mg PO daily w/ improvement in rates and BP to 135/71 -Metoprolol 25mg PO x 1 given PM 05/04 and BP dropped slightly but continued on Metoprolol 50mg daily thereafter w/ improvement in rates on telemetry to 90-100s Lasix decreased to 40mg PO daily on 05/05 per discussion w/ cards and cautious use w/ possible pre-load dependence given his RV dysfunction however BP improved after dose and was continued daily CXR unchanged/effusion in bases, on 2L still on 05/06. BP 107/60 this afternoon w/ lasix this morning, slightly up --> Increasing lasix to 40mg PO BID and can consider IV once daily vs BID as has tolerated days prior, but again, cautious use per cardiology but renal function remaining stable Monitor weights, I&Os Labs/CXR in AM [facility] planned when medically stable Monitor in AM (2) Hematuria: Plan: hematuria following placement of sutton catheter in setting of eliquis use for afib w/ likely prostatic irritation pt reports occurred in past w/ placement of such eliquis placed on hold, last dose AM 05/04 clearing this morning a little however having retntion/clogging this afternoon UA obtained last evening, +bacteria --> f/u urine cx continue abx w/ levaquin as covering below until finalized Per urology, ok to resume eliquis for 05/06 however had retention/clogging this AM 2nd to small clot and exchanged for today and will continue to hold --> 22F placed per urology instructions by nursing and draining (clot on end of sutton currently removed) hgb stable but decreased to 10.5 but stable at 10.8 w/ lasix on hold. INR 1.2 and stable compared to prior Monitor UOP, CBC in AM (3) Pneumonia: Plan: WBC elevation on admission w/ CT chest w/ scattered heterogenous airspace opacities most pronounced in the left lower lobe consistent with pneumonia. Also does make note of interstitial edema and small pleural effusions at that time - see CHF as above Sputum cx pseudomonas Zosyn --> Levaquin to complete course/prevent excessive fluid in IV given overload as above. Can dc after tomorrow dose as will have completed 7 day course if urine cx negative Continue pulmonary toilet Nebs changed to prn to prevent elevated HR/tachycardia w/ his afib and increased metoprolol as above for rate control. F/u CXR as needed, consideration for increased lasix as above Titrate O2 to maintain sats, currently 2L NC (4) Hypotension: Plan: Hypotensive w/ BP 69/50 on arrival in setting of significant dehydration/poor PO intake and continued use of home BB, spironolactone, entresto, alfuzosin and multiple recent courses of PO prednisone (cannot r/o underlying adrenal insufficiency w/ K 5.3 and hyponatremia on admission, random cortisol only 9 Could consider stress dose steroids if further hypotension, stable this morning but having volume overload from increased HR suspected as above Lactic 1.2 on admit, given 2.5L and continued MF overnight and additional IVF @ 80cc/hr ordered last evening (05/01) for low Na and midodrine increased Midodrine increased to 5mg TID - continued for now (monitor ability to decrease w/ diuretics/rate control as abvoe) Increased lasix IV BID 05/03, decreased to ONCE daily 05/04 and held for this morning given BP w/ increased metoprolol overnight, currently 50mg daily BP presently 107/60 and given PO lasix 40mg, scheduled daily Increasing lasix as above (5) Atrial fibrillation: Plan: continues on metoprolol, eliquis Mag low prior, IV replacement ordered and wnl on repeat and PO mag oxide increased to BID to ensure staying closer to 2, additional IV for 05/04 (did have some diarrhea overnight) Improvement in rate control w/ increased BB and remains on metoprolol 50mg daily (6) Acute kidney injury: Plan: IMPROVED and Cr back to baseline from 1.62 on admission. ?ATN from low BP on admit in setting of diuretics/poor PO intake. Suspected YANIRA pre-renal 2nd to significant dehydration/improved w/ IVF and holding diuretics St cath x 1 for retention >700cc, sutton now in place Renal US w/o obstuction but does note enlarged prostate/bladder wall thickening/trace L perinephric fluid --> FLQ should cover as above, has been on zosyn. UA on admit w/o bacteria Diuretics as outlined and renal function remaining stable Renal dose meds/avoid nephrotoxins Entrestro remains on hold and likely holding at ca. Spironolactone DISCONTINUED given hyperkalemia on admission Sutton in place at present, ?voiding trial prior to dc. --> NO REMOVAL HAVING RETENTION/REPLACED to 22F this AM. monitor for need for 3-way?. Urology on consult as above given hematuria Likely benefit from flomax/finasteride as above. (7) Hyponatremia: Plan: Chronic, multifactorial TSH 2.8 Random cortisol 9 Serum osm 271 , diuretics had been on hold -- see above urine osm 616 , urine sodium 172, ?component SIADH Hx cirrhosis, chronic lows however worsened as above w/ additional IVF and concerns for CHF as outlined BNP checked and significant elevation to 1200s , lasix as outlined above and decreased/now getting one time 40mg PO dose Repeat BNP 611 on repeat and decreased lasix as above and worse since changing to PO daily dosing lasix --> Increasing lasix as above, monitor for need to further elevate (8) Chronic obstructive pulmonary disease: Plan: Patient is stable on his baseline O2 requirements, do not think that he is experiencing a COPD exacerbation at this time however did report greenish sputum/tx suspected pneumonia as above NO WHEEZING ON EXAM w/ diuretics provided abx to levaquin to complete course as outlined, back to usual 2L NC Duonebs changed to PRN as outlined above Reports decreased sputum production/clearing up, on baseline 2L. Can dc abx tomorrow as will have completed more than ample course as long as UA w/o evidence for infection (neg on admit) (9) Hypomagnesemia: Plan: Noted to be 1.6 on arrival, S/P 800 mg PO Mag in the ED, 2gm IV again low 05/04 and IV replacement ordered Mag 1.7 and changed mag-oxide to slow mag BID to prevent diarrhea. cdiff ordered w/ next BM as has been on abx (10) Generalized weakness: Plan: Multifactorial -- see above, hypotension/dehydration on admission/possible PNA, however also CHF as outlined ABx as outlined, diuretics PT/OT consulted and planning for [facility] when medially stable (11) Pressure ulcer: Plan: Patient notes recent small pressure ulcer on his buttocks with recent weakness and inactivity Patient noted to have signs of skin breakdown on his sacrum with a small, non- infected pressure ulcer on the right buttocks wound care nurse consulted Turn and position q2h, low air loss bed ordered (12) Hyperkalemia: Plan: K 5.3 in the ED, suspected 2nd to YANIRA/spironolactone use w/ entresto and patient stopped his lasix himself per report Entresto held on admit, likely not resumed at dc at least for now, EF improved on most recent ECHO Spironolactone DISCONTINUED, should be stopped at dc K 4.5, slightly up from day prior --> increased lasix as outlined and monitor. Monitor for need for low K diet (13) Elevated troponin: Plan: Initial high sen trop elevated at 27 ---> 22 on repeat. suspected demand ischemia from hypotension/possible infection/YANIRA Monitoring on telemetry as above, no CP reported (14) Alteration consciousness: Plan: Presented to the ED via EMS after experiencing a 30 second long alteration in mental status shortly after his son lifted him up off the ground after sliding off his recliner . Micturition syncope, urine retention as above now w/ sutton CT head/brain NAF TSH wnl No further episodes since arrival to hospital. ?episode of orthostatic hypotension after being raised off the ground w/ low BP ?micturition syncope -- having retention issue Procal w/o elevation Fall precautions to be maintained Eliquis placed on HOLD for DVT proph (hx afib/mitral valve) for hematuria Appears alert/oriented, baseline cognition at present time (15) Right heart failure: Plan: as above, diuretics as outlined O2 as needed ?benefit outpt sleep study Plan DVT proph: Eliquis placed on hold (got dose AM 05/04), +SCDs continued inpatient stay, ongoing issues w/ diuresis/hematuria but planning [facility] when medically stable (has been accepted) F/u urine cx, possible dc abx tomorrow? Admission and Anticipated Discharge Date Admission Date: April 29, 2023 Subjective Eval around 6087-9022, patient was doing well this morning, urine clearing up. Thinks maybe sutton was flushed overnight by a gentleman, attempted flushing/irrigating by hand as now currently having issues w/ catheter draining. some slight drainage, patient reporting feeling like he needs to move his bowel. RN to contact urology as suspect patient will require 3 way catheter/irrigation. Will continue to hold eliquis. Urine cx still pending at present time. Remains on levaquin for pseudomonas cx and will continue until urine cx finalized in case of infection from catheter placement. No fevers/chills at present time. Continued inpatient stay given such but planning [facility] when medically stable. Physical Exam 2 Physical Exam: General: chronically ill appearing male laying flat in bed, having issues w/ sutton draining, butt presser pink tinged urine in bahena in bed, mildly uncomfortable reporting having to move his bowels head atraumatic, normocephalic, mmm/slightly chapped, trachea midline Resp: even/unlabored but decreased/diminished in the bases/fine basilar crackles, no overt wheezing/rales, no tachypnea, on 2L NC 96% CV: irregularly irregular, rates 60-90s, +systolic murmur, no further pedal edema GI: +BS, decreased distension, +suprapubic discomfort : sutton not actively draining (RN calling urology) MSK/Neuro: generalized weakness but nonfocal, answering questions appropriately, no slurred speech/facial droop Skin: dressings for skin breakdown c/d/i Psych: AOx3, cooperative Results & Data Results & Data Vital Signs (Past 12 Hours) Vital Signs Temp Pulse Pulse Resp BP BP Pulse Ox 05/06/23 07:20 36.5 C 76 18 103/72 96 05/06/23 04:00 36.4 C L 89 18 117/80 95 05/06/23 00:00 71 05/05/23 22:25 36.6 C 87 18 104/69 95 05/05/23 20:00 O2 Del Method O2 Flow Rate 05/06/23 07:20 Room Air 05/06/23 04:00 Nasal Cannula 2 05/06/23 00:00 05/05/23 22:25 Nasal Cannula 2 05/05/23 20:00 Nasal Cannula 2 Laboratory Results 05/06/23 05:39 05/06/23 05:39 Diagnostic Findings Chest X-Ray 05/06/23 08:51 XR chest 1V portable CLINICAL HISTORY: Follow up Pneumonia TECHNIQUE: Single frontal radiograph of the chest was obtained. Comparison: Comparison is made to chest radiograph 05/05/2023 FINDINGS: No lines and tubes are seen. Calcified aortic knob is seen. Valvular prosthesis is again seen. No change in multifocal airspace opacities compatible with pneumonia. Small bilateral pleural effusions are seen. IMPRESSION: No significant change. Multiple airspace opacities and small bilateral pleural effusions are again seen. ACT 112: Negative or not required by law. Electronically signed by: Darion Lee M.D. 05/06/2023 10:05 AM PG Care Time/CCT Total # of Minutes Spent Total Time Spent with Patient: Total time spent is greater than 50% in coordination of care (as documented) at patient's floor/unit and/or counseling patient: Coding Level of Care Code 65933 SUB INP/OBS CARE 3/50MIN Diagnoses Chronic systolic (congestive) heart failure I50.22 Hematuria R31.9 Pneumonia J18.9 Hypotension I95.9 Permanent atrial fibrillation I48.21 Atrial fibrillation type: permanent Acute kidney injury N17.9 Hyponatremia E87.1 Centrilobular emphysema J43.2 COPD type: emphysema Emphysema type: centrilobular Hypomagnesemia E83.42 Generalized weakness R53.1 Pressure ulcer L89.90 Hyperkalemia E87.5 Elevated troponin R77.8 Alteration consciousness R40.4 Right heart failure I50.810 (5) Atrial fibrillation Atrial fibrillation type: permanent Qualified Code(s): I48.21 - Permanent atrial fibrillation (8) Chronic obstructive pulmonary disease COPD type: emphysema Emphysema type: centrilobular Qualified Code(s): J43.2 - Centrilobular emphysema
--- NOTE | 2023-05-06 09:04 | Urology Consultation ---
Date of Consultation May 06, 2023 Assessment & Plan (1) Hematuria: Plan 82-year-old man who is currently admitted for heart failure and atrial fibrillation. He has had hematuria that began following placement of Mi catheter per hospitalist note. Hematuria is very mild today. Suspect this is from Mi catheter placement. Recommend restarting anticoagulation. His urine may get somewhat bloody or but as long as his catheter is draining it is okay to continue anticoagulation Mi catheter management per primary team Urology has sent a message to schedule outpatient follow-up once patient is discharged from the hospital Urology to sign off History of Present Illness Attending Physician: Sangeetha Coto MD History of Present Illness 82-year-old man who is currently admitted for heart failure and atrial fibrillation. He has had hematuria that began following placement of Mi catheter per hospitalist note. He is afebrile with stable vitals today. Review of labs shows a white blood cell count 7.2, creatinine of 1.08, and urinalysis that was drawn yesterday that was grossly positive. A culture is pending. He did have a renal ultrasound done on 04/29/2023 which I independently reviewed and shows no hydronephrosis or any tumor or clot in the bladder. He has been on anticoagulation for his A-fib but they are currently holding it due to hematuria. Patient reports he previously saw Dr. Palomo. He denied any urinary issues prior to admission or hematuria. Allergies Allergy/AdvReac Type Severity Reaction Status Date / Time cephalexin [From Keflex] Allergy Hives Verified 04/19/23 10:23 Home Medications Medication Instructions Recorded Confirmed Type multivitamin (Daily Multi-Vitamin 1 tab PO QAM 07/20/20 04/29/23 History tablet) Oxygen Home #2 L 10/14/21 04/29/23 Rx magnesium oxide 400 mg (241.3 mg 400 mg PO QAM #30 tabs 01/14/22 04/29/23 Rx magnesium) tablet alfuzosin 10 mg tablet,extended 10 mg PO QPM 07/11/22 04/29/23 History release 24 hr (Uroxatral) spironolactone 25 mg tablet 25 mg PO QAM 07/11/22 04/29/23 History metoprolol succinate 25 mg 12.5 mg (1/2 x 25 mg) PO QAM #45 09/26/22 04/29/23 Rx tablet,extended release 24 hr tabs budesonide-formoterol HFA 160 2 puff inhalation BID #3 Inhalers 09/27/22 04/29/23 Rx mcg-4.5 mcg/actuation aerosol inhaler (Symbicort) tiotropium bromide 2.5 2 puff inhalation QAM #3 Inhalers 10/05/22 04/29/23 Rx mcg/actuation mist for inhalation (Spiriva Respimat) furosemide 40 mg tablet 40 mg PO DAILY PRN weight gain #90 01/12/23 04/29/23 Rx tabs albuterol sulfate 90 mcg/actuation 2 puff inhalation QID PRN 02/07/23 04/29/23 Rx aerosol inhaler (Ventolin HFA) shortness of breath or wheezing #18 grams atorvastatin 20 mg tablet 20 mg PO HS #90 tabs 03/08/23 04/29/23 Rx apixaban 5 mg tablet (Eliquis) 5 mg PO BID 03/20/23 04/29/23 History sacubitril 24 mg-valsartan 26 mg 1 tab PO BID #180 tabs 04/27/23 04/29/23 Rx tablet (Entresto) omeprazole 20 mg capsule,delayed 20 mg PO DAILY 04/29/23 04/29/23 History release Patient History Medical History (Updated 05/04/23 @ 16:14 by Shirley Mesa PA-C) Hematuria Low blood pressure reading Anemia Chronic hypoxemic respiratory failure Hypoxia Right lower lobe pneumonia 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 Recommend 1 year follow up. Heart failure with mid-range ejection fraction Bradycardia Chronic obstructive pulmonary disease History of tobacco use BPH with obstruction/lower urinary tract symptoms Diverticulosis SNHL (sensorineural hearing loss) Seasonal allergies Tinnitus GERD (gastroesophageal reflux disease) Atrial fibrillation Hypertension Hyperlipidemia Surgical History Hx of amputation of lesser toe (~07/2022) Osteomyelitis H/O mitral valve replacement 2016 Status post Mohs surgery left cheek, left arm (squamous cell) Status post anal fissurectomy History of colonoscopy History of tooth extraction History of tonsillectomy History of cardiac radiofrequency ablation History of cardiac cath 03/2015 > no stents Family History Father Family hx colonic polyps Mother Heart disease Other Hypertension No family history of adverse response to anesthesia Social History Smoking Status: Former smoker Tobacco Type: Cigarettes Age Started Using Tobacco: 17; Age Quit Using Tobacco: 62; packs per day: 2; Cigarettes Per Day: 2 packs; Second Hand Exposure: No; Do You Dip or Chew Tobacco: No; Hx Alcohol Use: Yes Alcohol type: beer Alcohol Intake Frequency: 2-3 x/Week Hx Substance Use: No Preferred Language: Estonian Communication Ability: Effective Visual Impairment: Limited Hearing Ability: Normal Social Work Professor Required: No Beliefs That Will Affect Care: None marital status: Current Living Situation: Spouse Current Living Situation Comment: Home with current occupational status: retired Feels Safe at Home: Yes Childhood Exposure to Second-Hand Smoke: Yes Diet: regular Diet Comment: Educated to increase protein, vitamin c d and zinc caffeine: Yes during the past year weight has: decreased > 10 lbs Dental Care, Regularly: Yes Physical Activity Frequency: 1-2 Times per Week Physical Activity Frequency Comment: walks Seatbelt Use: always Sunscreen Use: Yes Do you think of yourself as: straight/heterosexual Assistive Devices: Walker Review of Systems Review of Systems: 14 point review of systems negative outs maribel of what is listed above in HPI Physical Exam Physical Exam: General: Alert and oriented, no acute distress HEENT: Normocephalic, mucous membranes moist Pulmonary: Nonlabored respirations Abdomen: Nondistended : Mi catheter draining pink-tinged urine. Extremities: Moves all 4 spontaneously Neuro: No gross deficits Skin: Warm, dry, no rashes noted Results & Data Vital Signs (Past 12 Hours) Vital Signs Temp Pulse Pulse Resp BP BP Pulse Ox 05/06/23 07:20 36.5 C 76 18 103/72 96 05/06/23 04:00 36.4 C L 89 18 117/80 95 05/06/23 00:00 71 05/05/23 22:25 36.6 C 87 18 104/69 95 O2 Del Method O2 Flow Rate 05/06/23 07:20 Room Air 05/06/23 04:00 Nasal Cannula 2 05/06/23 00:00 05/05/23 22:25 Nasal Cannula 2 PG Care Time/CCT Total # of Minutes Spent Total Time Spent with Patient: Total time spent is greater than 50% in coordination of care (as documented) at patient's floor/unit and/or counseling patient: Coding Level of Care Code 97626 INT INP/OBS CARE 2/55MIN Diagnoses Hematuria R31.9
[2023-05-06] MEDS: UMECLIDINIUM BROMIDE 62.5MCG/BLISTER 7 PUFFS/INHALER INH SCH (09:05)
[2023-05-06] MEDS: MIDODRINE HCL 2.5 MG TAB PO SCH ×3 (09:05→17:42)
[2023-05-06] MEDS: MAGNESIUM CHLORIDE W/CALCIUM 64MG DELAYED REL TAB PO SCH ×2 (09:05→20:25)
[2023-05-06] MEDS: FLUTICASONE/VILANTEROL 200/25MCG 14 PUFFS/INHALER INH SCH (09:05)
[2023-05-06] MEDS: guaiFENesin 600 MG TABCR PO SCH ×2 (09:05→20:26)
[2023-05-06] MEDS: PANTOprazole 40 MG TAB PO SCH (09:05)
[2023-05-06] MEDS: METOPROLOL SUCC 50MG EXT REL TAB PO SCH (09:05)
--- NOTE | 2023-05-06 10:06 | XRay Report ---
XR chest 1V portable CLINICAL HISTORY: Follow up Pneumonia TECHNIQUE: Single frontal radiograph of the chest was obtained. Comparison: Comparison is made to chest radiograph 05/05/2023 FINDINGS: No lines and tubes are seen. Calcified aortic knob is seen. Valvular prosthesis is again seen. No anish nge in multifocal airspace opacities compatible with pneumonia. Small bilateral pleural effusions are seen. IMPRESSION: No significant change. Multiple airspace opacities and small bilateral pleural effusions are again se en. ACT 112: Negative or not required by law. Electronically signed by: Darion Lee M.D. 05/06/2023 10:05 AM
[2023-05-06] MEDS ORDERED: LIDOCAINE 2% JELLY 5 ML TUBE EXT ONE (13:20)
[2023-05-06] MEDS: levoFLOXacin 750 MG TAB PO SCH (17:56)
[2023-05-07 03:35] LABS: Albumin Level 2.9 gm/dl (3.4-5.0); BUN Creatinine Ratio 16.9 (10-20); Calcium 8.7 mg/dl (8.6-10.3); Creatinine Clr Calc Pharmacy 47.3 ml/min; Est GFR (African American) 67.1 ml/min; Est GFR (Non-African American) 57.9 ml/min; Magnesium 1.7 mg/dl (1.7-2.4); Phosphorus 3.1 mg/dl (2.5-4.9); Potassium 4.5 mmol/L (3.5-5.1)
[2023-05-07] MEDS: MAGNESIUM SULFATE / D5W 1 GM/100 ML BAG IV SCH ×2 (06:49→08:57)
--- NOTE | 2023-05-07 07:39 | Hospitalist Progress Note ---
Date of Service May 07, 2023 Assessment & Plan (1) Chronic systolic (congestive) heart failure: Plan: Admitted w/ hypotension/syncope/AMS (?micrurition syncope, has had urinary retention), YANIRA. IVF ordered on admission, additional overnight 05/01-05/02 and w/ worsening respiratory failure/distress, evidence of volume overload on exam Hx of mitral valve replacement , on eliquis/metoprolol but also on entresto/spirnolactone and lasix "prn" at baseline ECHO obtained given syncope w/ picking up prior to admit --> dilated IVC, EF appears unchanged. dilated IVC c/w volume overload. Notably, diuretics had been held on admission due to YANIRA however CT chest did make note interstitial edema/pleural effusions on admission Volume overloaded on exam 05/02 and CXR obtained and evidence of pulm vascular congestion/overload and O2 requirement up to 5-6L NC BNP checked, elevated to 1211 Lasix 60mg IV x1, spironolactone resumed Na improved w/ diuretics, net neg 3.4L overnight. Sutton placed given issues w/ retention (?underlying BPH/outlet obstruction, consider flomax once sutton moved/monitor BP for hypotension issues) Cards consulted, did have 7beat run vtach afternoon 05/03, asymptomatic Spironolactone DISCONTINUED, hyperK on admit.Recs to dc at discharge. Remains OFF Entresto at present time Lasix 40mg IV x 2 on 05/03 Lasix 40mg IV x 1 on 05/04 and increase metoprolol to 25mg PO daily w/ improvement in rates and BP to 135/71 -Metoprolol 25mg PO x 1 given PM 05/04 and BP dropped slightly but continued on Metoprolol 50mg daily thereafter w/ improvement in rates on telemetry to 90-100s (held metoprolol by nursing for low HR this AM, currentyl 65bpm and monitor for am/reduction if needed but per cards ok to continued) Lasix had been decreased to 40mg PO daily on 05/05 per discussion w/ cards and cautious use w/ possible pre-load dependence given his RV dysfunction however BP improved after dose and was continued daily however CXR w/o improvement and BNP further elevated and was increased to 40mg PO BID w/ improvement in UOP as well Consult placed for nephrology given ongoing hyponatremia --> continue to hold entresto, spironolactone discontinued. STOPPED further lasix PO BID and they are providing 1L IVF for intravascular volume depletion today and monitoring repeat exam Mag IV ordered given pause/7beat run vtach to keep closer to 2 w/ afib. SLOW mag replaced mag-oxide to prevent diarrhea. None further reported but cdiff to collect if has. A bx DISCONTINUED 05/06 given negative urine cx and completed >10 day course w/ Zosyn/Levaquin On 2L at present and denied significant SOB and will monitor/titrate as able [facility] eventually when medically stable but continued inpatient stay (2) Hematuria: Plan: following placement of sutton catheter after straight cath for >700cc. Renal US on admit neg for obtruction (but did note L perinephric edema to note) ?prostatic irritation in setting of eliquis for afib --> Eliquis placed on HOLD, last dose AM 05/04 Catheter clogged AM 05/06, urology consulted and rec'd for exchange to 22F which was done by nursing 05/06 w/ hand irrigation of clots and improving on exam today Discussed continued sutton at de and voiding trial at de given issues Repeat urine cx NEGATIVE growth, abx discontinued Hgb stable compared to priors. INR 1.2 --> Per urology, ok to resume his Eliquis given improvement however will hold for this evening and consider resuming AM 05/08 if hematuria w/ continued improvement/no further significant hematuria *not likely should be on flomax, can start inpatient w/ sutton but cautious w/ his midodrine and metoprolol and admit w/ hypotension (3) Pneumonia: Plan: WBC elevation on admission w/ CT chest w/ scattered heterogenous airspace opacities most pronounced in the left lower lobe consistent with pneumonia. Also does make note of interstitial edema and small pleural effusions at that time - see CHF as above Was provided Zosyn IV on admission (MRSA nares negative) --> levaquin given sputum cx + pseudomonas Completed >7 day course and repeat urine cx negative. WBC wnl and no fevers and levaquin DISCONTINUED further. Monitor for cdiff given diarrhea Nebs changed to prn to prevent tachycardia w/ his afib--> on 2L at present and will monitor. Does have some faint wheezing on exam (mag IV ordered and will monitor) but patient reporting breathig much improved at present Monitor for further need for CXR w/ IVF as above given CHF/volume overload this past week (4) Hypotension: Plan: Hypotensive w/ BP 69/50 on arrival in setting of significant dehydration/poor PO intake and continued use of home BB, spironolactone, entresto, alfuzosin and multiple recent courses of PO prednisone (cannot r/o underlying adrenal insufficiency w/ K 5.3 and hyponatremia on admission, random cortisol only 9. Could consider stress dose steroids if further hypotension, stable this morning but having volume overload from increased HR suspected as above Lactic 1.2 on admit, given 2.5L and continued MF overnight and additional IVF @ 80cc/hr ordered last evening (05/01) for low Na and midodrine increased +Midodrine, increased and continued at 5mg TID Metoprolol increased by cardiology for rate control w/ improvement but was held this AM for low HR and will continued to monitor Per cards, would continue 50mg PO daily, may need to decrease slightly if HRs remaining on the low side/symptomatic (presently is not having symptoms from such/was sleeping overnight w/ pauses 3-4 seconds 05/06) AM cortisol acceptable 8.81 Monitor- BP presently 116/53 (5) Atrial fibrillation: Plan: continues on metoprolol, eliquis Mag low prior, IV replacement ordered and wnl on repeat and PO mag oxide increased to BID to ensure staying closer to 2, additional IV for 05/04 (did have some diarrhea overnight) Improvement in rate control w/ increased BB and remains on metoprolol 50mg daily (held this morning as above and will monitor) (6) Acute kidney injury: Plan: IMPROVED and Cr back to baseline from 1.62 on admission. ?ATN from low BP on admit in setting of diuretics/poor PO intake. Suspected YANIRA pre-renal 2nd to significant dehydration/improved w/ IVF and holding diuretics St cath x 1 for retention >700cc, sutton now in place Renal US w/o obstuction but does note enlarged prostate/bladder wall thickening/trace L perinephric fluid --> FLQ should cover as above, has been on zosyn. UA on admit w/o bacteria Diuretics as outlined and renal function remaining stable Renal dose meds/avoid nephrotoxins Entrestro remains on hold and likely holding at dc. Spironolactone DISCONTINUED given hyperkalemia on admission Sutton in place at present -- continued and can do voiding trial BUN/Cr slight bump, lasix held per nephrology/giving 1L IVF and monitor Likely benefit from flomax/finasteride given likely BPH/outlet obstruction however cautious use flomax w/ hypotension issues (7) Hyponatremia: Plan: Chronic, multifactorial, hx cirrhosis however deamed "cardiac cirrhosis" in the past TSH 2.8 Random cortisol 9 Serum osm 271 , diuretics had been on hold -- see above urine osm 616 , urine sodium 172, ?component SIADH Hx cirrhosis, chronic lows however worsened as above w/ additional IVF and concerns for CHF as outlined BNP checked and significant elevation to 1200s , lasix as outlined above and decreased but increased as outlined above for worsening CXR/BNP however DRY, 128 at present Consulted nephrology HOLDING LASIX, IVF x 1L to be provided, additional testing/recs per nephrology. Appreciate assistance in management (8) Chronic obstructive pulmonary disease: Plan: Patient is stable on his baseline O2 requirements, do not think that he is experiencing a COPD exacerbation at this time however did report greenish sputum/tx suspected pneumonia as above NO WHEEZING ON EXAM w/ diuretics provided, however having some faint wheezing 05/07 and getting mag IV as above. Further lasix dc'd as outlined and actually providing IVF today Duonebs available prn Incentive spirometer to be encouraged Completed course abx as outlined above. WBC wnl and afebrile (9) Hypomagnesemia: Plan: Noted to be 1.6 on arrival, S/P 800 mg PO Mag in the ED, 2gm IV again low 05/04 and IV replacement ordered Mag 1.7 and changed mag-oxide to slow mag BID to prevent diarrhea. additional IV mag to keep closer to 2 and monitor labs in AM (10) Generalized weakness: Plan: Multifactorial -- see above, hypotension/dehydration on admission/possible PNA, however also CHF as outlined ABx as outlined, diuretics, now IVF/holding diuretics PT/OT, [facility] planned when able (11) Pressure ulcer: Plan: Patient notes recent small pressure ulcer on his buttocks with recent weakness and inactivity Patient noted to have signs of skin breakdown on his sacrum with a small, non- infected pressure ulcer on the right buttocks wound care nurse consulted Turn and position q2h, low air loss bed ordered (12) Hyperkalemia: Plan: K 5.3 in the ED, suspected 2nd to YANIRA/spironolactone use w/ entresto and patient stopped his lasix himself per report K 4.2 on BMP Spironolactone DISCONTINUED, should be stopped at dc Entresto held on admit, likely not resumed at dc at least for now, EF improved on most recent ECHO Serial monitoring (13) Elevated troponin: Plan: Initial high sen trop elevated at 27 ---> 22 on repeat. suspected demand ischemia from hypotension/possible infection/YANIRA Monitoring on telemetry as above, no CP reported (14) Alteration consciousness: Plan: Presented to the ED via EMS after experiencing a 30 second long alteration in mental status shortly after his son lifted him up off the ground after sliding off his recliner . Micturition syncope, urine retention as above now w/ sutton CT head/brain NAF TSH wnl No further episodes since arrival to hospital. ?episode of orthostatic hypotension after being raised off the ground w/ low BP ?micturition syncope -- having retention issue Procal w/o elevation Fall precautions to be maintained Eliquis placed on HOLD for DVT proph (hx afib/mitral valve) for hematuria -- possible resume 05/08 AM as outlined Appearing AOx3, friends at bedside during encounter, no issues (15) Right heart failure: Plan: as above, diuretics as outlined O2 as needed ?benefit outpt sleep study Plan DVT proph: Eliquis placed on hold (got dose AM 05/04 -- hopeful resume AM 05/08), +SCDs nephrology on consult for hyponatremia, IVF ordered and monitoring [facility] planned when medically stable based on therapy evals Admission and Anticipated Discharge Date Admission Date: April 29, 2023 Subjective Eval around lunch, feeling a little better today. Metoprolol continued but held for HR to as low as 27/30 this morning, currently 65bpm. BP 116/53 and will monitor HR on telemetry. Discussed may need decreased but will monitor -- he notes was seen by cards and told "on right direction, wouldn't change anything". Did have some pauses overnight 3-4 seconds while sleeping, asytmpomatic. IVF to be started by nephrology/holding further lasix. Gil reports "you guys are like a yoyo" and chuckled. On 2L and breathing stable. Does have some faint wheezing but no overt SOB or cough at present.Discussed discontinued further abx, cdiff to be collected but had some formed stool but if any further diarrhea to be collected. Discussed cardiology/urology ok w/ resuming eliquis but may wait until AM to ensure no issues given catheter exchange/clot yesterday. darkend urine in bag/container however clearer yellow in tubing at present time. No CP/fever. Continued inpatient stay but [facility] when medically stable. Friends ("[employer] friends") in to visit patient this afternoon. Physical Exam Physical Exam: General: chronically ill appearing male resting in bed, reports feeling better than day prior NAD Head atraumatic, mm DRY, trachea midline Resp: diminished in the bases w/ faint expiratory wheezing, on 2L NC, no tachypnea/cough CV: irregularly irregular (rates 60s at present, prior lows to 27/30-40s while sleeping), no significant LE edema/calf tenderness GI: +BS, soft/less distension, no further suprapubic discomfort : sutton w/ darkened/blood urine in canister/sutton but clearer yellow urine in tubing MSK/Neuro: generalized weakness, but alert/oriented and nonfocal, following commands Psych: AOx3, cooperative, smiling/joking about holding diuretic and giving fluids Results & Data Results & Data Vital Signs (Past 12 Hours) Vital Signs Temp Pulse Resp BP BP Pulse Ox O2 Del Method 05/07/23 07:18 36.4 C L 80 17 107/71 97 Nasal Cannula 05/07/23 03:10 36.3 C L 64 18 111/71 98 Nasal Cannula 05/06/23 22:15 36.5 C 60 18 102/56 L 93 Nasal Cannula O2 Flow Rate 05/07/23 07:18 2 05/07/23 03:10 2 05/06/23 22:15 2 Laboratory Results 05/07/23 05/07/23 05/07/23 Range/Units 07:58 07:19 02:54 WBC 7.26 (4.8-10.8) K/ul RBC 3.74 L (4.70-6.10) M/uL Hgb 10.4 L (14.0-18.0) g/dl Hct 33.1 L (42.0-52.0) % MCV 88.5 (80.0-100.0) fL MCH 27.8 (25.0-34.0) pg MCHC 31.4 L (32.0-36.0) g/dL RDW Std Deviation 46.8 H (36.4-46.3) fL RDW Coeff of Kamron 14.7 H (11.5-14.5) % Plt Count 231 (130-400) K/uL MPV 10.9 (9.4-12.4) fL Immature Gran % (Auto) 0.8 % Neut % (Auto) 72.2 % Lymph % (Auto) 11.8 % Parke % (Auto) 12.5 % Eos % (Auto) 2.1 % Baso % (Auto) 0.6 % Neut # (Auto) 5.24 (1.40-6.50) K/uL Lymph # (Auto) 0.86 L (1.20-3.40) K/uL Parke # (Auto) 0.91 H (0.11-0.59) K/uL Eos # (Auto) 0.15 (0.00-0.50) K/uL Baso # (Auto) 0.04 (0.00-0.20) K/uL Immature Gran # (Auto) 0.06 (0.01-0.20) K/uL Sodium 128 L 127 L (136-145) mmol/L Potassium 4.2 4.5 (3.5-5.1) mmol/L Chloride 90 L 90 L (98-107) mmol/L Carbon Dioxide 31 32 (21-32) mmol/L Anion Gap 7 5 (3-11) BUN 19 20 (6-23) mg/dl Creatinine 1.06 1.18 (0.6-1.4) mg/dl Est Cr Clr Drug Dosing 50.6 47.3 ml/min Est GFR ( Amer) 76.4 67.1 ml/min Est GFR (Non-Af Amer) 66.0 57.9 ml/min BUN/Creatinine Ratio 17.9 16.9 (10-20) Glucose 99 97 (70-99(Fasting)) mg/dl Osmolality 270 L (280-300) mOsm/kg Calcium 8.9 8.7 (8.6-10.3) mg/dl Phosphorus 3.1 (2.5-4.9) mg/dl Magnesium 1.8 1.7 (1.7-2.4) mg/dl Total Bilirubin 0.6 (0.2-1.0) mg/dl AST 19 (13-39) U/L ALT 9 (7-52) U/L Alkaline Phosphatase 93 (34-104) U/L Total Protein 5.5 L (6.0-8.3) gm/dl Albumin 2.9 L 2.9 L (3.4-5.0) gm/dl Globulin 2.6 (2.5-4.0) gm/dl Albumin/Globulin Ratio 1.1 (0.9-2) Cortisol AM Sample 8.81 (6.2-22.6) mcg/dl PG Care Time/CCT Total # of Minutes Spent Total Time Spent with Patient: Total time spent is greater than 50% in coordination of care (as documented) at patient's floor/unit and/or counseling patient: Coding Level of Care Code 70162 SUB INP/OBS CARE 3/50MIN Diagnoses Chronic systolic (congestive) heart failure I50.22 Hematuria R31.9 Pneumonia J18.9 Hypotension I95.9 Permanent atrial fibrillation I48.21 Atrial fibrillation type: permanent Acute kidney injury N17.9 Hyponatremia E87.1 Centrilobular emphysema J43.2 COPD type: emphysema Emphysema type: centrilobular Hypomagnesemia E83.42 Generalized weakness R53.1 Pressure ulcer L89.90 Hyperkalemia E87.5 Elevated troponin R77.8 Alteration consciousness R40.4 Right heart failure I50.810 (5) Atrial fibrillation Atrial fibrillation type: permanent Qualified Code(s): I48.21 - Permanent atrial fibrillation (8) Chronic obstructive pulmonary disease COPD type: emphysema Emphysema type: centrilobular Qualified Code(s): J43.2 - Centrilobular emphysema
[2023-05-07 07:43] LABS: Basophils # (auto) 0.04 K/uL (0.00-0.20); Basophils % (auto) 0.6 %; Eosinophils # (auto) 0.15 K/uL (0.00-0.50); Eosinophils % (auto) 2.1 %; Hematocrit (blood only) 33.1 % (42.0-52.0); Hemoglobin 10.4 g/dl (14.0-18.0); Immature Granulocytes # (auto) 0.06 K/uL (0.01-0.20); Immature Granulocytes % (auto) 0.8 %; Lymphocytes # (auto) 0.86 K/uL (1.20-3.40); Lymphocytes % (auto) 11.8 %; Mean Corpuscular Hemoglobin 27.8 pg (25.0-34.0); Mean Corpuscular Hgb Conc 31.4 g/dL (32.0-36.0); Mean Corpuscular Volume 88.5 fL (80.0-100.0); Mean Platelet Volume 10.9 fL (9.4-12.4); Monocytes # (auto) 0.91 K/uL (0.11-0.59); Monocytes % (auto) 12.5 %; Neutrophils # (auto) 5.24 K/uL (1.40-6.50); Neutrophils % (auto) 72.2 %; Platelet Count 231 K/uL (130-400); RDW Coefficient of Variation 14.7 % (11.5-14.5); RDW Standard Deviation 46.8 fL (36.4-46.3); Red Blood Count 3.74 M/uL (4.70-6.10); White Blood Count 7.26 K/ul (4.8-10.8)
[2023-05-07 07:58] LABS: Albumin Globulin Ratio 1.1 (0.9-2); Albumin Level 2.9 gm/dl (3.4-5.0); BUN Creatinine Ratio 17.9 (10-20); Bilirubin,Total 0.6 mg/dl (0.2-1.0); Calcium 8.9 mg/dl (8.6-10.3); Creatinine Clr Calc Pharmacy 50.6 ml/min; Est GFR (African American) 76.4 ml/min; Globulin 2.6 gm/dl (2.5-4.0); Magnesium 1.8 mg/dl (1.7-2.4); Potassium 4.2 mmol/L (3.5-5.1); Total Protein 5.5 gm/dl (6.0-8.3)
[2023-05-07] MEDS ORDERED: MAGNESIUM SULFATE / D5W 1 GM/100 ML BAG IV ONE (08:28)
[2023-05-07] MEDS: guaiFENesin 600 MG TABCR PO SCH ×2 (08:46→21:33)
[2023-05-07] MEDS: MIDODRINE HCL 2.5 MG TAB PO SCH ×3 (08:47→17:37)
[2023-05-07] MEDS: UMECLIDINIUM BROMIDE 62.5MCG/BLISTER 7 PUFFS/INHALER INH SCH (08:47)
[2023-05-07] MEDS: PANTOprazole 40 MG TAB PO SCH (08:47)
[2023-05-07] MEDS: METOPROLOL SUCC 50MG EXT REL TAB PO SCH (08:48)
[2023-05-07] MEDS: MAGNESIUM CHLORIDE W/CALCIUM 64MG DELAYED REL TAB PO SCH ×2 (08:48→21:33)
[2023-05-07] MEDS: FLUTICASONE/VILANTEROL 200/25MCG 14 PUFFS/INHALER INH SCH (08:48)
[2023-05-07] MEDS: FUROSEMIDE 40 MG TAB PO SCH (08:52)
--- NOTE | 2023-05-07 09:56 | Cardiology Progress Note ---
Date of Service May 07, 2023 Assessment & Plan (1) Atrial fibrillation: Plan: -ventricular response was well controlled on current dose of metoprolol. -bradycardic rate while sleeping of no clinical concern. -pauses while sleeping of no clinical concern. -Eliquis currently on hold. (2) Hypotension: Plan: -blood pressure acceptable on midodrine. (3) Right heart failure: Plan: -appears well compensated. -careful use Lasix as he is preload dependent. (4) CAD (coronary artery disease): Plan: -nonobstructive disease by cardiac catheterization, March 2015. (5) Nonischemic cardiomyopathy: Plan: -ejection fraction normal on current echocardiogram. -continue metoprolol succinate. -Entresto and spironolactone currently on hold. Admission and Anticipated Discharge Date Admission Date: April 29, 2023 Subjective The patient is resting comfortably in bed without complaints chest pain, dyspnea, palpitations, or presyncope. Physical Exam Physical Exam: In general this is a well-developed well-nourished male in no acute distress. HEENT exam is negative. Neck is supple with full carotid upstrokes. No jugular veinous distention. Lungs are clear without rales, rhonchi, or wheezes. Abdomen is soft and nontender. Extremities reveal no edema. Results & Data Vital Signs (Past 12 Hours) Vital Signs Temp Pulse Pulse Resp BP BP Pulse Ox 05/07/23 07:38 49 L 05/07/23 07:18 36.4 C L 80 17 107/71 97 05/07/23 03:10 36.3 C L 64 18 111/71 98 05/06/23 22:15 36.5 C 60 18 102/56 L 93 O2 Del Method O2 Flow Rate 05/07/23 07:38 05/07/23 07:18 Nasal Cannula 2 05/07/23 03:10 Nasal Cannula 2 05/06/23 22:15 Nasal Cannula 2 Diagnostic Findings electronic device monitor overnight noted heart rates in the 40-50 range. There was one, 4 second pause while sleeping. Ventricular response now varies between 50 and 70 beats per minute. PG Care Time/CCT Total # of Minutes Spent Total Time Spent with Patient: Total time spent is greater than 50% in coordination of care (as documented) at patient's floor/unit and/or counseling patient: Coding Level of Care Code 32027 SUB INP/OBS CARE MIN Diagnoses Permanent atrial fibrillation I48.21 Atrial fibrillation type: permanent Hypotension I95.9 Hypotension type: unspecified hypotension type Right heart failure I50.810 CAD (coronary artery disease) I25.10 Nonischemic cardiomyopathy I42.8 (1) Atrial fibrillation Atrial fibrillation type: permanent Qualified Code(s): I48.21 - Permanent atrial fibrillation (2) Hypotension Hypotension type: unspecified hypotension type Qualified Code(s): I95.9 - Hypotension, unspecified
[2023-05-07] MEDS ORDERED: SODIUM CHLORIDE 0.9% 1,000 ML IV SCH (11:30)
--- NOTE | 2023-05-07 12:04 | Nephrology Consultation ---
Date of Consultation May 07, 2023 Assessment & Plan (1) Hyponatremia: * Hypoosmolar hyponatremia. Mild, asymptomatic. Patient has chronically run serum Na 130-135 mmol/L since at least 06/02. He remains clinically volume contracted at this time (dry MM, no peripheral edema despite h/o R heart failure, 05/06/23 CXR without overt CHF, SaO2 95% on O2 at 2L/min chronically, elevated Uosm). * Will provide 1 L 0.9NS today * Monitor PRP, volume status (2) Acute kidney injury: * Resolved (3) Hypotension: * On Midodrine therapy * Recommend weaning Midodrine following IV hydration * Consider reducing beta dillan dose due to relative bradycardia * Entresto, Spironolactone are being held (4) Diarrhea: * C. Difficile testing - pending (5) BPH with obstruction/lower urinary tract symptoms: * Mi catheter in place * Urology had been consulted due to hematuria * Hematuria had resolved and Urology recommended continuing anticoagulation for atrial fibrillation * Remains on Alfuzosin (Uroxatral) therapy History of Present Illness Reason for Consultation: Hyponatremia Attending Physician: Sangeetha Coto MD History of Present Illness Mr. Rodriguez is an 82 year old white male who is seen at the request of the [facility] Hospitalist Service for evaluation of hyponatremia. Information for the HPI is obtained from direct patient interview and review of the EMR. Mr. Rodriguez has long standing asymptomatic chronic hyponatremia with baseline sodium of 130-135 mmol/L. His medical history is significant for COPD requiring O2 at 2L/min NC, R heart failure, atrial fibrillation (Apixaban), h/o MVR, PAD, BPH and alcoholic cirrhosis. As an outpatient his medical regiment included Metoprolol, Entresto, Spironolactone, Furosemide and Alfuzosin. On 04/29/23 Mr. Rodriguez suffered a syncopal event at home. He was brought to the [facility] EMD where SBP was 60 mmHg, Cr had risen from baseline 0.8 to 1.6 and Na was stable at 130 mmol/L. CXR revealed a LLL pneumonia. Echocardiogram revealed LVEF 50-70%, mod reduction in RV systolic function w/ RVSP 40-50 mmHg and moderately dilated IVC. Metoprolol was continued for heart rate control but Spironolactone, Entresto have been held. Midodrine has been started for BP support. Initially patient was given IVF but then diuretic therapy due to concerns for volume overload. CXR did show mild pulmonary congestion and small bilateral effusions. Cardiology has advised to avoid aggressive diuresis as patient may be preload dependent. Serum Na this am is 128 mmol/L. Patient is complaining of new onset diarrhea. Allergies Allergy/AdvReac Type Severity Reaction Status Date / Time cephalexin [From Keflex] Allergy Hives Verified 04/19/23 10:23 Home Medications Medication Instructions Recorded Confirmed Type multivitamin (Daily Multi-Vitamin 1 tab PO QAM 07/20/20 04/29/23 History tablet) Oxygen Home #2 L 10/14/21 04/29/23 Rx magnesium oxide 400 mg (241.3 mg 400 mg PO QAM #30 tabs 01/14/22 04/29/23 Rx magnesium) tablet alfuzosin 10 mg tablet,extended 10 mg PO QPM 07/11/22 04/29/23 History release 24 hr (Uroxatral) spironolactone 25 mg tablet 25 mg PO QAM 07/11/22 04/29/23 History metoprolol succinate 25 mg 12.5 mg (1/2 x 25 mg) PO QAM #45 09/26/22 04/29/23 Rx tablet,extended release 24 hr tabs budesonide-formoterol HFA 160 2 puff inhalation BID #3 Inhalers 09/27/22 04/29/23 Rx mcg-4.5 mcg/actuation aerosol inhaler (Symbicort) tiotropium bromide 2.5 2 puff inhalation QAM #3 Inhalers 10/05/22 04/29/23 Rx mcg/actuation mist for inhalation (Spiriva Respimat) furosemide 40 mg tablet 40 mg PO DAILY PRN weight gain #90 01/12/23 04/29/23 Rx tabs albuterol sulfate 90 mcg/actuation 2 puff inhalation QID PRN 02/07/23 04/29/23 Rx aerosol inhaler (Ventolin HFA) shortness of breath or wheezing #18 grams atorvastatin 20 mg tablet 20 mg PO HS #90 tabs 03/08/23 04/29/23 Rx apixaban 5 mg tablet (Eliquis) 5 mg PO BID 03/20/23 04/29/23 History sacubitril 24 mg-valsartan 26 mg 1 tab PO BID #180 tabs 04/27/23 04/29/23 Rx tablet (Entresto) omeprazole 20 mg capsule,delayed 20 mg PO DAILY 04/29/23 04/29/23 History release Patient History Medical History CAD (coronary artery disease) Nonobstructive per 03/2015 cardiac cath per cardio records Hematuria Low blood pressure reading Anemia Chronic hypoxemic respiratory failure Hypoxia Right lower lobe pneumonia 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 Recommend 1 year follow up. Heart failure with mid-range ejection fraction Bradycardia Chronic obstructive pulmonary disease History of tobacco use BPH with obstruction/lower urinary tract symptoms Diverticulosis SNHL (sensorineural hearing loss) Seasonal allergies Tinnitus GERD (gastroesophageal reflux disease) Atrial fibrillation Hypertension Hyperlipidemia Surgical History Hx of amputation of lesser toe (~07/2022) Osteomyelitis H/O mitral valve replacement 2015 Status post Mohs surgery left cheek, left arm (squamous cell) Status post anal fissurectomy History of colonoscopy History of tooth extraction History of tonsillectomy History of cardiac radiofrequency ablation History of cardiac cath 03/2015 > no stents Family History Father Family hx colonic polyps Mother Heart disease Other Hypertension No family history of adverse response to anesthesia Social History Smoking Status: Former smoker Tobacco Type: Cigarettes Age Started Using Tobacco: 17; Age Quit Using Tobacco: 62; packs per day: 2; Cigarettes Per Day: 2 packs; Second Hand Exposure: No; Do You Dip or Chew Tobacco: No; Hx Alcohol Use: Yes Alcohol type: beer Alcohol Intake Frequency: 2-3 x/Week Hx Substance Use: No Preferred Language: Cuban Communication Ability: Effective Visual Impairment: Limited Hearing Ability: Normal Managing Partner Required: No Beliefs That Will Affect Care: None marital status: Current Living Situation: Spouse Current Living Situation Comment: Home with current occupational status: retired Feels Safe at Home: Yes Childhood Exposure to Second-Hand Smoke: Yes Diet: regular Diet Comment: Educated to increase protein, vitamin c d and zinc caffeine: Yes during the past year weight has: decreased > 10 lbs Dental Care, Regularly: Yes Physical Activity Frequency: 1-2 Times per Week Physical Activity Frequency Comment: walks Seatbelt Use: always Sunscreen Use: Yes Do you think of yourself as: straight/heterosexual Assistive Devices: Walker Review of Systems Constitutional: no fever Eyes: no problem reported Ear, Nose, Mouth, Throat: no problem reported Respiratory: no cough and no dyspnea Cardiovascular: no chest pain and no palpitations Gastrointestinal: + diarrhea/loose stools; no nausea and n o vomiting Genitourinary: + problem reported (Mi catheter now i n place, patient has bloody urine) Integumentary: no rash Physical Exam Constitutional: + frail appearing; not in distress Eyes: PERRL, conjunctivae normal, anicteric sclerae ENMT: Mouth: + dry oral mucous membranes Neck: trachea midline, no thyromegaly Respiratory: normal respiratory effort, lungs clear to auscultation Cardiovascular: Rate/Rhythm: + irregularly irregular Vessels: no JVD Extremities: no pedal edema Gastrointestinal (Abdomen): normal bowel sounds, soft, nontender, no hep atosplenomegaly Skin: + turgor decreased Neurologic: Speech / Cognition: normal speech and normal cognition Psychiatric: Affect: euthymic affect Results & Data Vital Signs (Past 12 Hours) Vital Signs Temp Pulse Pulse Resp BP BP Pulse Ox 05/07/23 07:38 49 L 05/07/23 07:18 36.4 C L 80 17 107/71 97 05/07/23 03:10 36.3 C L 64 18 111/71 98 O2 Del Method O2 Flow Rate 05/07/23 07:38 05/07/23 07:18 Nasal Cannula 2 05/07/23 03:10 Nasal Cannula 2 Laboratory Results Laboratory Results - last 24 hr 05/07/23 05/07/23 05/07/23 02:54 07:19 07:58 WBC 7.26 RBC 3.74 L Hgb 10.4 L Hct 33.1 L MCV 88.5 MCH 27.8 MCHC 31.4 L RDW Std Deviation 46.8 H RDW Coeff of Kamron 14.7 H Plt Count 231 MPV 10.9 Immature Gran % (Auto) 0.8 Neut % (Auto) 72.2 Lymph % (Auto) 11.8 [place] % (Auto) 12.5 Eos % (Auto) 2.1 Baso % (Auto) 0.6 Neut # (Auto) 5.24 Lymph # (Auto) 0.86 L [place] # (Auto) 0.91 H Eos # (Auto) 0.15 Baso # (Auto) 0.04 Immature Gran # (Auto) 0.06 Sodium 127 L 128 L Potassium 4.5 4.2 Chloride 90 L 90 L Carbon Dioxide 32 31 Anion Gap 5 7 BUN 20 19 Creatinine 1.18 1.06 Est Cr Clr Drug Dosing 47.3 50.6 Est GFR ( Amer) 67.1 76.4 Est GFR (Non-Af Amer) 57.9 66.0 BUN/Creatinine Ratio 16.9 17.9 Glucose 97 99 Osmolality 270 L Calcium 8.7 8.9 Phosphorus 3.1 Magnesium 1.7 1.8 Total Bilirubin 0.6 AST 19 ALT 9 Alkaline Phosphatase 93 Total Protein 5.5 L Albumin 2.9 L 2.9 L Globulin 2.6 Albumin/Globulin Ratio 1.1 Cortisol AM Sample 8.81 PG Care Time/CCT Total # of Minutes Spent Total Time Spent with Patient: Total time spent is greater than 50% in coordination of care (as documented) at patient's floor/unit and/or counseling patient: Coding Level of Care Code 76014 IN/OBS CONSULT LVL 5,80M Diagnoses Hyponatremia E87.1 Acute kidney injury N17.9 Hypotension I95.9 Diarrhea R19.7 BPH with obstruction/lower urinary tract symptoms N40.1; N13.8
[2023-05-08 06:39] LABS: Basophils # (auto) 0.03 K/uL (0.00-0.20); Basophils % (auto) 0.5 %; Eosinophils # (auto) 0.14 K/uL (0.00-0.50); Eosinophils % (auto) 2.1 %; Hematocrit (blood only) 32.6 % (42.0-52.0); Hemoglobin 10.6 g/dl (14.0-18.0); Immature Granulocytes # (auto) 0.05 K/uL (0.01-0.20); Immature Granulocytes % (auto) 0.8 %; Lymphocytes % (auto) 13.6 %; Mean Corpuscular Hemoglobin 28.8 pg (25.0-34.0); Mean Corpuscular Hgb Conc 32.5 g/dL (32.0-36.0); Mean Corpuscular Volume 88.6 fL (80.0-100.0); Mean Platelet Volume 10.8 fL (9.4-12.4); Monocytes # (auto) 0.91 K/uL (0.11-0.59); Monocytes % (auto) 13.7 %; Neutrophils % (auto) 69.3 %; Platelet Count 216 K/uL (130-400); RDW Coefficient of Variation 14.7 % (11.5-14.5); RDW Standard Deviation 47.3 fL (36.4-46.3); Red Blood Count 3.68 M/uL (4.70-6.10); White Blood Count 6.63 K/ul (4.8-10.8)
[2023-05-08 07:04] LABS: Calcium 8.9 mg/dl (8.6-10.3); Creatinine Clr Calc Pharmacy 52.9 ml/min; Est GFR (Non-African American) 70.8 ml/min; Magnesium 1.8 mg/dl (1.7-2.4); Potassium 4.4 mmol/L (3.5-5.1)
--- NOTE | 2023-05-08 07:49 | Hospitalist Progress Note ---
Date of Service May 08, 2023 Assessment & Plan (1) Hypotension: Plan: Hypotensive w/ BP 69/50 on arrival in setting of significant dehydration/poor PO intake and continued use of home BB, spironolactone, entresto, alfuzosin and multiple recent courses of PO prednisone (cannot r/o underlying adrenal insufficiency w/ K 5.3 and hyponatremia on admission, random cortisol only 9. Could consider stress dose steroids if further hypotension, stable this morning but having volume overload from increased HR suspected as above Lactic 1.2 on admit, given 2.5L and continued MF overnight and additional IVF @ 80cc/hr ordered last evening (05/01) for low Na and midodrine increased AM cortisol acceptable 8.81 +Midodrine, increased and continued at 5mg TID Metoprolol increased by cardiology for rate control w/ improvement but was held this AM for low HR and will continued to monitor Per cards, ok to continue 50mg PO daily however given issues w/ hypotension/nephrology recs --> metoprolol decreased to 25mg PO daily for 05/09 Additional 1L IVF for today and monitor ability to titrate off midodrine w/ IVF hydration per nephrology on decreased dose of metoprolol BP presently 118/73 (2) Chronic systolic (congestive) heart failure: Plan: Admitted w/ hypotension/syncope/AMS (?micrurition syncope, has had urinary retention), YANIRA. IVF ordered on admission, additional overnight 05/01-05/02 and w/ worsening respiratory failure/distress, evidence of volume overload on exam Hx of mitral valve replacement , on eliquis/metoprolol but also on entresto/spirnolactone and lasix "prn" at baseline ECHO obtained given syncope w/ picking up prior to admit --> dilated IVC, EF appears unchanged. dilated IVC c/w volume overload. Notably, diuretics had been held on admission due to YANIRA however CT chest did make note interstitial edema/pleural effusions on admission and was given copious IVF resusitation on admission for hypotension CXR w/ pulm vasc congestion/BNP 1211 and O2 req to 5-6L w/ abdominal distension and diuretics were provided (see prior notes) w. improvement in breathing and sodium level initially, however worsened on 05/07 Nephrology consulted given worsened hyponatremia/assistance w/ diuretics Nephrology ordered 1L IVF NSS 05/07, Na 130 from 128, BUN/Cr 21/1.00 Remains OFF Entresto, spironolactone discontinued given hyperkalemia Metoprolol was held AM 05/07 for low BP (pauses at night). On midodrine 5mg TID which is new since admission and continued for ongoing hypotension issues and will attempt to titrate off with decrease in metoprolol to 25mg daily for AM, BP presently 118/73 Cards consulted, appreciate assistance. Ok to remain off diuretics, spironolactone discontinued. WIll have to see about if entresto needing resumed. Rehana Miranda from CHF clinic to stop by to see patient today, 05/08 Monitor weights/I&O Appeared slightly dry 05/07, improved today but delicate balance. Appreciate nephrology/cards assistance (3) Hematuria: Plan: following placement of sutton catheter after straight cath for >700cc. Renal US on admit neg for obstruction (but did note L perinephric edema to note) ?prostatic irritation w/ INR 1.2 in patient w/ hx cirrhosis on eliquis Eliquis placed on HOLD, last dose AM 05/04 Urology consulted Repeat UA/cx NEGATIVE on final cx, abx discontinued as was initially getting for PNA on admit Catheter clogged AM 05/06, exchanged for 22F per urology Improvement in hematuria on exam 05/07 but given exchange/clogging, waiting until 05/08 to resume to ensure no issues --> resumed 05/08 and will monitor Likely benefit from flomax (on alfusozin outpatient, nonformulary) but hypotension on admit/low BPs precluding initiation and also on midodrine for BP support. 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 Monitor for worsening hematuria w/ eliquis resumed (4) Pneumonia: Plan: WBC elevation on admission w/ CT chest w/ scattered heterogenous airspace opacities most pronounced in the left lower lobe consistent with pneumonia. Also does make note of interstitial edema and small pleural effusions at that time - see CHF as above Was provided Zosyn IV on admission (MRSA nares negative) --> levaquin given s putum cx + pseudomonas Completed >7 day course and repeat urine cx negative. WBC wnl and no fevers and levaquin DISCONTINUED further. Monitor for cdiff given diarrhea however patient reports diarrhea slowed/more formed stool x 1today. Check cdiff if any ongoing diarrhea On 2L at present, 94%. ON 2 L w/ exertion at baseline but possible recent RSV infection this past winter w/ prolonged recovery phase and may require O2 at baseline. Continue to monitor No increased SOB/sputum production reported (5) Atrial fibrillation: Plan: continues on metoprolol, eliquis Mag replacement as needed, 1.8 on AM labs and increased PO to BID but made slow mag to prevent diarrhea Metoprolol decreased to 25mg from 50mg (12.5mg on admit) given bradycardia day prior and hypotension and continue to montior on telemetry (6) Acute kidney injury: Plan: IMPROVED and Cr back to baseline from 1.62 on admission. ?ATN from low BP on admit in setting of diuretics/poor PO intake. Suspected YANIRA pre-renal 2nd to significant dehydration/improved w/ IVF and holding diuretics St cath x 1 for retention >700cc, sutton now in place Renal US w/o obstuction but does note enlarged prostate/bladder wall thickening/trace L perinephric fluid --> FLQ should cover as above, has been on zosyn. UA on admit w/o bacteria Diuretics as outlined and renal function remaining stable Renal dose meds/avoid nephrotoxins Entrestro remains on hold and likely holding at me. Spironolactone DISCONTINUED given hyperkalemia on admission Sutton in place at present -- continued and can do voiding trial at [facility] 1L IVF 05/07 per nephrology BUN/Cr stable 30/04 at present. Remains OFF diuretics. (7) Hyponatremia: Plan: Chronic, multifactorial, hx cirrhosis however deamed "cardiac cirrhosis" in the past TSH 2.8 Random cortisol 9 Serum osm 271 , diuretics had been on hold -- see above urine osm 616 , urine sodium 172, ?component SIADH Hx cirrhosis, chronic lows however worsened as above w/ additional IVF and concerns for CHF as outlined BNP checked and significant elevation to 1200s , lasix as outlined above and decreased but increased as outlined above for worsening CXR/BNP however DRY on exam 05/07 Consulted nephrology HOLDING LASIX, IVF x 1L to be provided, additional testing/recs per nephrology. Appreciate assistance in management --> Na 130 and stable on repeat labs and will monitor (8) Chronic obstructive pulmonary disease: Plan: Patient is stable on his baseline O2 requirements, do not think that he is experiencing a COPD exacerbation at this time however did report greenish sputum/tx suspected pneumonia as above NO WHEEZING ON EXAM w/ diuretics provided, however having some faint wheezing 05/07 and getting mag IV as above. Further lasix dc'd as outlined and actually providing IVF today Duonebs available prn Incentive spirometer to be encouraged Completed course abx as outlined above. WBC wnl and afebrile (9) Hypomagnesemia: Plan: as above under afib, continue PO BID supplementation and monitor (10) Generalized weakness: Plan: Multifactorial -- see above, hypotension/dehydration on admission/possible PNA, however also CHF as outlined ABx as outlined, diuretics, now IVF/holding diuretics PT/OT, encompass planned when able (11) Pressure ulcer: Plan: Patient notes recent small pressure ulcer on his buttocks with recent weakness and inactivity Patient noted to have signs of skin breakdown on his sacrum with a small, non- infected pressure ulcer on the right buttocks wound care nurse consulted Turn and position q2h, low air loss bed ordered (12) Hyperkalemia: Plan: K 5.3 in the ED, suspected 2nd to YANIRA/spironolactone use w/ entresto and patient stopped his lasix himself per report Spironolactone DISCONTINUED, entresto held since admit (EF normalized on ECHO compared to prior) Lasix as outlined but discontinued further and was provided IVF. K 4.4 and will continue to monitor (13) Elevated troponin: Plan: Initial high sen trop elevated at 27 ---> 22 on repeat. suspected demand ischemia from hypotension/possible infection/YANIRA Monitoring on telemetry as above, no CP reported (14) Alteration consciousness: Plan: Presented to the ED via EMS after experiencing a 30 second long alteration in mental status shortly after his son lifted him up off the ground after sliding off his recliner . Micturition syncope, urine retention as above now w/ sutton CT head/brain NAF TSH wnl No further episodes since arrival to hospital. ?episode of orthostatic hypotens ion after being raised off the ground w/ low BP ?micturition syncope -- having retention issue Procal w/o elevation Fall precautions to be maintained Eliquis placed on HOLD, now resuming Appearing AOx3 during encounter (15) Right heart failure: Plan: as above, diuretics as outlined O2 as needed ?benefit outpt sleep study Plan continued inpatient stay, decreased AM metoprolol for AM and can see about titrating off midodrine [facility] when medically stable, possibly next 24-48 hours pending volume status/labs. CM notified and following Admission and Anticipated Discharge Date Admission Date: April 29, 2023 Subjective Eval this morning, resting in bed. Denies any further diarrhea. Breathing stable but remains on 2L. Discussed decreasing his metoprolol to 25mg and will trial to wean midodrine if possible. No further diuretics at present time.Does not appear significantly dehydrated at present time. IVF defer to nephrology. [facility] not likely until later this week pending changes. RN to bladder scan, some suprapubic pressure. If no issues, eliquis to be resumed Questions/concerns addressed at this time. Physical Exam Physical Exam: General: chronically ill appearing male resting in bed, reports feeling better than day prior NAD but chronically ill appearing Head atraumatic, mm DRY, trachea midline Resp: diminished in the bases w/ faint expiratory wheezing, on 2L NC, no tachypnea/cough CV: irregularly irregular (rates 90s at present), no significant LE edema/calf tenderness GI: +BS, soft/less distension, slight suprapubic discomfort/fullness : sutton w/ jamie colored urine clearer yellow urine in tubing MSK/Neuro: generalized weakness, but alert/oriented and nonfocal, following commands Psych: AOx3, cooperative Results & Data Results & Data Vital Signs (Past 12 Hours) Vital Signs Temp Pulse Pulse Resp BP Pulse Ox O2 Del Method 05/08/23 07:16 36.4 C L 91 H 18 111/67 95 Nasal Cannula 05/08/23 03:56 36.4 C L 94 H 18 135/82 95 Nasal Cannula 05/07/23 23:21 73 05/07/23 23:02 36.6 C 82 18 125/80 97 Nasal Cannula 05/07/23 19:46 36.6 C 82 18 134/81 97 Nasal Cannula O2 Flow Rate 05/08/23 07:16 2 05/08/23 03:56 2 05/07/23 23:21 05/07/23 23:02 2 05/07/23 19:46 2 Laboratory Results 05/08/23 05/08/23 Range/Units Unknown 05:56 WBC 6.63 (4.8-10.8) K/ul RBC 3.68 L (4.70-6.10) M/uL Hgb 10.6 L (14.0-18.0) g/dl Hct 32.6 L (42.0-52.0) % MCV 88.6 (80.0-100.0) fL MCH 28.8 (25.0-34.0) pg MCHC 32.5 (32.0-36.0) g/dL RDW Std Deviation 47.3 H (36.4-46.3) fL RDW Coeff of Kamron 14.7 H (11.5-14.5) % Plt Count 216 (130-400) K/uL MPV 10.8 (9.4-12.4) fL Immature Gran % (Auto) 0.8 % Neut % (Auto) 69.3 % Lymph % (Auto) 13.6 % [place] % (Auto) 13.7 % Eos % (Auto) 2.1 % Baso % (Auto) 0.5 % Neut # (Auto) 4.60 (1.40-6.50) K/uL Lymph # (Auto) 0.90 L (1.20-3.40) K/uL [place] # (Auto) 0.91 H (0.11-0.59) K/uL Eos # (Auto) 0.14 (0.00-0.50) K/uL Baso # (Auto) 0.03 (0.00-0.20) K/uL Immature Gran # (Auto) 0.05 (0.01-0.20) K/uL Sodium 130 L (136-145) mmol/L Potassium 4.4 (3.5-5.1) mmol/L Chloride 93 L (98-107) mmol/L Carbon Dioxide 32 (21-32) mmol/L Anion Gap 5 (3-11) BUN 21 (6-23) mg/dl Creatinine 1.00 (0.6-1.4) mg/dl Est Cr Clr Drug Dosing 52.9 ml/min Est GFR ( Amer) 82.0 ml/min Est GFR (Non-Af Amer) 70.8 ml/min BUN/Creatinine Ratio 21.0 H (10-20) Glucose 95 (70-99(Fasting)) mg/dl Calcium 8.9 (8.6-10.3) mg/dl Magnesium 1.8 (1.7-2.4) mg/dl Urine Osmolality 491 L (500-800) mOsm/kg Ur Random Sodium 43 mmol/L PG Care Time/CCT Total # of Minutes Spent Total Time Spent with Patient: Total time spent is greater than 50% in coordination of care (as documented) at patient's floor/unit and/or counseling patient: Coding Level of Care Code 52855 SUB INP/OBS CARE 3/50MIN Diagnoses Hypotension I95.9 Chronic systolic (congestive) heart failure I50.22 Hematuria R31.9 Pneumonia J18.9 Permanent atrial fibrillation I48.21 Atrial fibrillation type: permanent Acute kidney injury N17.9 Hyponatremia E87.1 Centrilobular emphysema J43.2 COPD type: emphysema Emphysema type: centrilobular Hypomagnesemia E83.42 Generalized weakness R53.1 Pressure ulcer L89.90 Hyperkalemia E87.5 Elevated troponin R77.8 Alteration consciousness R40.4 Right heart failure I50.810 (5) Atrial fibrillation Atrial fibrillation type: permanent Qualified Code(s): I48.21 - Permanent atrial fibrillation (8) Chronic obstructive pulmonary disease COPD type: emphysema Emphysema type: centrilobular Qualified Code(s): J43.2 - Centrilobular emphysema
[2023-05-08] MEDS: FLUTICASONE/VILANTEROL 200/25MCG 14 PUFFS/INHALER INH SCH (08:28)
[2023-05-08] MEDS: guaiFENesin 600 MG TABCR PO SCH ×2 (08:28→21:14)
[2023-05-08] MEDS: MAGNESIUM CHLORIDE W/CALCIUM 64MG DELAYED REL TAB PO SCH ×2 (08:28→21:14)
[2023-05-08] MEDS: MIDODRINE HCL 2.5 MG TAB PO SCH ×3 (08:28→17:38)
[2023-05-08] MEDS: PANTOprazole 40 MG TAB PO SCH (08:28)
--- NOTE | 2023-05-08 08:59 | Nephrology Progress Note ---
Date of Service May 08, 2023 Assessment & Plan (1) Hyponatremia: Plan: * Hypoosmolar hyponatremia. Mild, asymptomatic. Patient has chronically run serum Na 130-135 mmol/L since at least 06/02. He remains clinically volume contracted at this time (dry MM, no peripheral edema despite h/o R heart failure, 05/06/23 CXR without overt CHF, SaO2 95% on O2 at 2L/min chronically, elevated Uosm). * Serum Na improved to 130 mmol/L this am * Remains clinically volume contracted. Will provide additional 1 L 0.9NS today * Monitor PRP, volume status (2) Acute kidney injury: Plan: * Resolved (3) Hypotension: Plan: * On Midodrine therapy * Recommend weaning Midodrine following IV hydration * Consider reducing beta dillan dose due to relative bradycardia * Entresto, Spironolactone are being held (4) Diarrhea: Plan: * C. Difficile testing pending but patient is symptomatically improved (5) BPH with obstruction/lower urinary tract symptoms: Plan: * Urology had been consulted due to hematuria * Remove Mi when approved by Urology * Hematuria had resolved and Urology recommended continuing anticoagulation for atrial fibrillation * Remains on Alfuzosin (Uroxatral) therapy Admission and Anticipated Discharge Date Admission Date: April 29, 2023 Subjective Mr. Rodriguez was evaluated in his hospital room this morning. He denied abdominal pain and reported that his diarrhea had improved. Review of Systems Constitutional: no fever Eyes: no problem reported Ear, Nose, Mouth, Throat: no problem reported Respiratory: no cough and no dyspnea Cardiovascular: no chest pain and no palpitations Gastrointestinal: + diarrhea/loose stools; no nausea and n o vomiting Genitourinary: + problem reported (Mi catheter now i n place, patient has bloody urine) Integumentary: no rash Physical Exam Constitutional: + frail appearing; not in distress Eyes: PERRL, conjunctivae normal, anicteric sclerae ENMT: Mouth: + dry oral mucous membranes Neck: trachea midline, no thyromegaly Respiratory: normal respiratory effort, lungs clear to auscultation Cardiovascular: Rate/Rhythm: + irregularly irregular Vessels: no JVD Extremities: no pedal edema Gastrointestinal (Abdomen): normal bowel sounds, soft, nontender, no hepatosplenomegaly Skin: + turgor decreased Neurologic: Speech / Cognition: normal speech and normal cognition Psychiatric: Affect: euthymic affect Results & Data Vital Signs (Past 12 Hours) Vital Signs Temp Pulse Pulse Resp BP Pulse Ox O2 Del Method 05/08/23 07:16 36.4 C L 91 H 18 111/67 95 Nasal Cannula 05/08/23 03:56 36.4 C L 94 H 18 135/82 95 Nasal Cannula 05/07/23 23:21 73 05/07/23 23:02 36.6 C 82 18 125/80 97 Nasal Cannula O2 Flow Rate 05/08/23 07:16 2 05/08/23 03:56 2 05/07/23 23:21 05/07/23 23:02 2 Laboratory Results Laboratory Results - last 24 hr 05/08/23 05/08/23 05:56 Unknown WBC 6.63 RBC 3.68 L Hgb 10.6 L Hct 32.6 L MCV 88.6 MCH 28.8 MCHC 32.5 RDW Std Deviation 47.3 H RDW Coeff of Kamron 14.7 H Plt Count 216 MPV 10.8 Immature Gran % (Auto) 0.8 Neut % (Auto) 69.3 Lymph % (Auto) 13.6 [place] % (Auto) 13.7 Eos % (Auto) 2.1 Baso % (Auto) 0.5 Neut # (Auto) 4.60 Lymph # (Auto) 0.90 L [place] # (Auto) 0.91 H Eos # (Auto) 0.14 Baso # (Auto) 0.03 Immature Gran # (Auto) 0.05 Sodium 130 L Potassium 4.4 Chloride 93 L Carbon Dioxide 32 Anion Gap 5 BUN 21 Creatinine 1.00 Est Cr Clr Drug Dosing 52.9 Est GFR ( Amer) 82.0 Est GFR (Non-Af Amer) 70.8 BUN/Creatinine Ratio 21.0 H Glucose 95 Calcium 8.9 Magnesium 1.8 Urine Osmolality 491 L Ur Random Sodium 43 PG Care Time/CCT Total # of Minutes Spent Total Time Spent with Patient: Total time spent is greater than 50% in coordination of care (as documented) at patient's floor/unit and/or counseling patient: Coding Level of Care Code 61251 SUB INP/OBS CARE 3/50MIN Diagnoses Hyponatremia E87.1 Acute kidney injury N17.9 Hypotension I95.9 Diarrhea R19.7 BPH with obstruction/lower urinary tract symptoms N40.1; N13.8
[2023-05-08] MEDS: UMECLIDINIUM BROMIDE 62.5MCG/BLISTER 7 PUFFS/INHALER INH SCH (09:33)
[2023-05-08] MEDS: METOPROLOL SUCC 50MG EXT REL TAB PO SCH (09:33)
[2023-05-08] MEDS ORDERED: SODIUM CHLORIDE 0.9% 1,000 ML IV SCH (10:45)
[2023-05-08] MEDS: APIXABAN 5 MG TABLET PO SCH (21:14)
[2023-05-09 06:47] LABS: Hematocrit (blood only) 30.2 % (42.0-52.0); Hemoglobin 10.1 g/dl (14.0-18.0); Mean Corpuscular Hemoglobin 29.4 pg (25.0-34.0); Mean Corpuscular Hgb Conc 33.4 g/dL (32.0-36.0); Mean Platelet Volume 11.2 fL (9.4-12.4); Platelet Count 212 K/uL (130-400); RDW Coefficient of Variation 14.6 % (11.5-14.5); RDW Standard Deviation 46.8 fL (36.4-46.3); Red Blood Count 3.43 M/uL (4.70-6.10)
[2023-05-09 07:12] LABS: BUN Creatinine Ratio 22.1 (10-20); Calcium 8.8 mg/dl (8.6-10.3); Creatinine Clr Calc Pharmacy 65.1 ml/min; Est GFR (African American) 94.9 ml/min; Est GFR (Non-African American) 81.9 ml/min; Potassium 4.2 mmol/L (3.5-5.1)
[2023-05-09] MEDS: UMECLIDINIUM BROMIDE 62.5MCG/BLISTER 7 PUFFS/INHALER INH SCH (08:13)
[2023-05-09] MEDS: MIDODRINE HCL 2.5 MG TAB PO SCH ×3 (08:13→16:30)
[2023-05-09] MEDS: MAGNESIUM CHLORIDE W/CALCIUM 64MG DELAYED REL TAB PO SCH ×2 (08:13→19:39)
[2023-05-09] MEDS: PANTOprazole 40 MG TAB PO SCH (08:13)
[2023-05-09] MEDS: APIXABAN 5 MG TABLET PO SCH ×2 (08:13→19:39)
[2023-05-09] MEDS: guaiFENesin 600 MG TABCR PO SCH ×2 (08:13→19:39)
[2023-05-09] MEDS: FLUTICASONE/VILANTEROL 200/25MCG 14 PUFFS/INHALER INH SCH (08:13)
--- NOTE | 2023-05-09 08:49 | XRay Report ---
XR chest 1V portable HISTORY: Shortness of breath. Follow-up congestive heart failure. COMPARISON: Chest 05/06/2023. FINDINGS: No pneumothorax. The heart remains enlarged. 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 No acute fractures. Small bilateral pleural effusions persist. Interstitial/vascular thickening and hazy bilateral airspace opacities are again noted. This likely represents mild pulmonary edema. A superim posed pneumonia could also have a similar appearance. IMPRESSION: 1. No significant change in the mild interstitial pulmonary edema, cardiomegaly, and small bilateral pleural effusions. 2. Patchy bilateral airspace opacities persist and likely represent pulmonary edema. A superimposed p neumonia would be difficult to exclude. ACT 112: Negative or not required by law. Electronically signed by: Bryan Vee M.D. 05/09/2023 8:48 AM
--- NOTE | 2023-05-09 08:54 | Nephrology Progress Note ---
Date of Service May 09, 2023 Assessment & Plan (1) Hyponatremia: Plan: * Hypoosmolar hyponatremia. Mild, asymptomatic. Patient has chronically run serum Na 130-135 mmol/L since at least 06/02. He remains clinically volume contracted at this time (dry MM, no peripheral edema despite h/o R heart failure, 05/06/23 CXR without overt CHF, SaO2 95% on O2 at 2L/min chronically, elevated Uosm). * Serum Na remains stable at 131 mmol/L this am * Stop IVF, encourage oral hydration * Monitor PRP, volume status * Serum sodium is back to baseline. Patient likely has chronic hyponatremia on the basis or R heart failure. Recommend avoid thiazide diuretics, avoid aggressive diuresis as patient is likely preload dependent. No further Nephrology evaluation at this time. Will sign off. Please call if further assistance is needed (2) Acute kidney injury: Plan: * Resolved (3) Hypotension: Plan: * On Midodrine therapy * Recommend weaning Midodrine following IV hydration * Entresto, Spironolactone are being held (4) Diarrhea: Plan: * C. Difficile testing pending but patient is symptomatically improved (5) BPH with obstruction/lower urinary tract symptoms: Plan: * Urology had been consulted due to hematuria * Remove Mi when approved by Urology * Hematuria had resolved and Urology recommended continuing anticoagulation for atrial fibrillation * Remains on Alfuzosin (Uroxatral) therapy Admission and Anticipated Discharge Date Admission Date: April 29, 2023 Subjective Mr. Rodriguez was evaluated in his hospital room this morning. He denied abdominal pain and reported that his diarrhea had improved. Mr. Rodriguez reported that he tolerated IV hydration and was breathing comfortably on O2 at 2L/min NC Review of Systems Constitutional: no fever Eyes: no problem reported Ear, Nose, Mouth, Throat: no problem reported Respiratory: no cough and no dyspnea Cardiovascular: no chest pain and no palpitations Gastrointestinal: no nausea, no vomiting and no diarrhea/loose stools Genitourinary: + problem reported (Mi catheter remai ns in place) Integumentary: no rash Physical Exam Constitutional: + frail appearing; not in distress Eyes: PERRL, conjunctivae normal, anicteric sclerae ENMT: Mouth: + dry oral mucous membranes Neck: trachea midline, no thyromegaly Respiratory: normal respiratory effort, lungs clear to auscultation Cardiovascular: Rate/Rhythm: + irregularly irregular Vessels: no JVD Extremities: no pedal edema Gastrointestinal (Abdomen): normal bowel sounds, soft, nontender, no hepatosplenomegaly Skin: + turgor decreased Neurologic: Speech / Cognition: normal speech and normal cognition Psychiatric: Affect: euthymic affect Results & Data Vital Signs (Past 12 Hours) Vital Signs Temp Pulse Pulse Pulse Resp BP Pulse Ox 05/09/23 07:37 36.4 C L 64 18 113/58 L 93 05/09/23 04:29 36.4 C L 60 16 108/68 93 05/09/23 00:00 50 L 05/08/23 22:48 36.9 C 65 18 130/74 96 O2 Del Method O2 Flow Rate 05/09/23 07:37 Nasal Cannula 2 05/09/23 04:29 Nasal Cannula 2 05/09/23 00:00 05/08/23 22:48 Nasal Cannula 2 Laboratory Results Laboratory Results - last 24 hr 05/09/23 05:57 WBC 7.20 RBC 3.43 L Hgb 10.1 L Hct 30.2 L MCV 88.0 MCH 29.4 MCHC 33.4 RDW Std Deviation 46.8 H RDW Coeff of Kamron 14.6 H Plt Count 212 MPV 11.2 Sodium 131 L Potassium 4.2 Chloride 96 L Carbon Dioxide 30 Anion Gap 5 BUN 19 Creatinine 0.86 Est Cr Clr Drug Dosing 65.1 Est GFR ( Amer) 94.9 Est GFR (Non-Af Amer) 81.9 BUN/Creatinine Ratio 22.1 H Glucose 96 Calcium 8.8 PG Care Time/CCT Total # of Minutes Spent Total Time Spent with Patient: Total time spent is greater than 50% in coordination of care (as documented) at patient's floor/unit and/or counseling patient: Coding Level of Care Code 42910 SUB INP/OBS CARE 3/50MIN Diagnoses Hyponatremia E87.1 Acute kidney injury N17.9 Hypotension I95.9 Diarrhea R19.7 BPH with obstruction/lower urinary tract symptoms N40.1; N13.8
[2023-05-09] MEDS ORDERED: METOPROLOL SUCC 25MG EXT REL TAB PO SCH (09:00)
--- NOTE | 2023-05-09 13:32 | Hospitalist Progress Note ---
Date of Service May 09, 2023 Assessment & Plan (1) Hypotension: Plan: BP 69/50 on arrival in setting of significant dehydration/poor PO intake and continued use of home BB, spironolactone, entresto, alfuzosin Random cortisol normal despite being on recent prednisone Added Midodrine and holding lasix, aldactone, Entresto and BPs now improved Also was given IVFs for hyponatremia due to hypovolemia Metoprolol increased by cardiology for rate control w/ improvement but was held this AM for low HR-resume at lower dose of 12.5mg daily of metoprolol (2) Chronic systolic (congestive) heart failure: Plan: With acute on chronic HFrEF, Right sided HF Admitted w/ hypotension/syncope/AMS, YANIRA. Thought to be hypovolemic Was given IVF initially and then developed worsening respiratory distress, wo rsening hypoxia, CXR with pulm congestion and BNP elevated--> was then given IV lasix and then became hypovolemic, hyponatremic Given IVFs by Nephrology and now improved but having low urine output, d efinitely does not appear volume overloaded ECHO with dilated IVC, EF appears unchanged Lasix, Entresto, aldactone all on hold Cards consulted, appreciate assistance. Ok to remain off diuretics, spir onolactone discontinued. WIll have to see about if entresto needing resumed. Rehana Miranda from CHF clinic aware patient is admitted adn will follow after discharge Monitor weights/I&O Giving another 500mL NS now (3) Hematuria: Plan: following placement of s[place] catheter after straight cath for >700cc. Renal US on admit neg for obstruction (but did note L perinephric edema to note) Eliquis placed on HOLD but have since resumed and only occasional hematuria in [place] UA neg for infection Urology consulted-Catheter clogged AM 05/06, exchanged for 22F per urology. 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 Also does make note of interstitial edema and small pleural effusions at that time - see CHF as above Was provided Zosyn IV on admission (MRSA nares negative) --> levaquin given sputum cx + pseudomonas--> Completed >7 day course (5) Atrial fibrillation: Plan: continues on metoprolol, eliquis Metoprolol dose was increased to 50mg at one point but having bradycardia and long pauses of 6 seconds while sleeping Now reduced back to 12.5mg daily and having 4 second pauses while sleeping but normal rates 60-80s while awake during day (6) Acute kidney injury: Plan: IMPROVED and Cr back to baseline from 1.62 on admission. ?ATN from low BP on admit in setting of diuretics/poor PO intake causing hypovolemia. Suspected YANIRA pre-renal 2nd to significant dehydration/improved w/ IVF and holding diuretics St cath x 1 for retention >700cc, sutton now in place Renal US w/o obstruction but does note enlarged prostate/bladder wall thickening/trace L perinephric fluid Giving IVFs intermittently (7) Hyponatremia: Plan: TSH 2.8, Random cortisol 9 Serum osm 271 , diuretics had been on hold -- see above urine osm 616 , urine sodium 172, ?component SIADH Hx cirrhosis and CHF but Nephrology believes he is hypovolemic and was given IVFs with improvement in Na+ to 131 and stable today holding lasix follow BMP (8) Chronic obstructive pulmonary disease: Plan: Patient is stable on his baseline O2 requirements, do not think that he is experiencing a COPD exacerbation at this time Duonebs available prn Incentive spirometer to be encouraged Completed course abx as outlined above. WBC wnl and afebrile (9) Hypomagnesemia: Plan: as above under afib, continue PO BID supplementation and monitor (10) Generalized weakness: Plan: PT/OT, encompass planned when able (11) Pressure ulcer: Plan: Patient notes recent small pressure ulcer on his buttocks with recent weakness and inactivity Patient noted to have signs of skin breakdown on his sacrum with a small, non- infected pressure ulcer on the right buttocks wound care nurse consulted Turn and position q2h, low air loss bed ordered (12) Hyperkalemia: Plan: K 5.3 in the ED, suspected 2nd to YANIRA/spironolactone use w/ entresto and patient stopped his lasix himself per report Spironolactone DISCONTINUED, entresto held since admit (EF normalized on ECHO compared to prior) K+ now normal (13) Elevated troponin: Plan: Initial high sen trop elevated at 27 ---> 22 on repeat. suspected demand ischemia from hypotension/possible infection/YANIRA Monitoring on telemetry as above, no CP reported Plan DVT proph-Eliquis Dispo-improving, needs rehab, stable for discharge likely tomorrow if bed available at [facility] Admission and Anticipated Discharge Date Admission Date: April 29, 2023 Subjective Feeling better.Feels very weak all over. Tele with afib with 6.5 sec pauses frequently through the night while sleeping I discussed his care with Cardiology Physical Exam Constitutional: WD/WN, vitals as above Respiratory: normal respiratory effort; no cough Auscultation: + diminished lung sounds (throughout); no crackles and no wheezes Cardiovascular: Rate/Rhythm: regular rate and + irregularly irregular Heart Sounds: no murmur Extremities: no edema Gastrointestinal (Abdomen): normal bowel sounds, soft, nontender, no hepatosplenomegaly Psychiatric: A+Ox3, euthymic affect Results & Data Results & Data Vital Signs (Past 12 Hours) Vital Signs Temp Pulse Resp BP Pulse Ox O2 Del Method O2 Flow Rate 05/09/23 12:22 36.7 C 91 H 17 110/63 92 Nasal Cannula 2 05/09/23 08:00 Nasal Cannula 2 05/09/23 07:37 36.4 C L 64 18 113/58 L 93 Nasal Cannula 2 05/09/23 04:29 36.4 C L 60 16 108/68 93 Nasal Cannula 2 Laboratory Results CBC< BMP reviewed PG Care Time/CCT Total # of Minutes Spent Total Time Spent with Patient: Total time spent is greater than 50% in coordination of care (as documented) at patient's floor/unit and/or counseling patient: Coding Level of Care Code 85857 SUB INP/OBS CARE 2/35MIN Diagnoses Hypotension I95.9 Chronic systolic (congestive) heart failure I50.22 Hematuria R31.9 Pneumonia J18.9 Permanent atrial fibrillation I48.21 Atrial fibrillation type: permanent Acute kidney injury N17.9 Hyponatremia E87.1 Centrilobular emphysema J43.2 COPD type: emphysema Emphysema type: centrilobular Hypomagnesemia E83.42 Generalized weakness R53.1 Pressure ulcer L89.90 Hyperkalemia E87.5 Elevated troponin R77.8 (5) Atrial fibrillation Atrial fibrillation type: permanent Qualified Code(s): I48.21 - Permanent atrial fibrillation (8) Chronic obstructive pulmonary disease COPD type: emphysema Emphysema type: centrilobular Qualified Code(s): J43.2 - Centrilobular emphysema
[2023-05-09] MEDS: METOPROLOL SUCC 25MG EXT REL TAB PO SCH (16:29)
[2023-05-10] MEDS: PANTOprazole 40 MG TAB PO SCH (09:37)
[2023-05-10] MEDS: MIDODRINE HCL 2.5 MG TAB PO SCH ×3 (09:37→17:57)
[2023-05-10] MEDS: APIXABAN 5 MG TABLET PO SCH ×2 (09:38→19:58)
[2023-05-10] MEDS: MAGNESIUM CHLORIDE W/CALCIUM 64MG DELAYED REL TAB PO SCH ×2 (09:38→19:58)
[2023-05-10] MEDS: guaiFENesin 600 MG TABCR PO SCH ×2 (09:38→19:58)
[2023-05-10] MEDS: FLUTICASONE/VILANTEROL 200/25MCG 14 PUFFS/INHALER INH SCH (09:39)
[2023-05-10] MEDS: UMECLIDINIUM BROMIDE 62.5MCG/BLISTER 7 PUFFS/INHALER INH SCH (09:39)
[2023-05-10] MEDS: METOPROLOL SUCC 25MG EXT REL TAB PO SCH (09:40)
[2023-05-10 10:05] LABS: BUN Creatinine Ratio 28.2 (10-20); Calcium 9.1 mg/dl (8.6-10.3); Creatinine Clr Calc Pharmacy 72.5 ml/min; Est GFR (African American) 98.8 ml/min; Est GFR (Non-African American) 85.3 ml/min; Potassium 4.1 mmol/L (3.5-5.1)
[2023-05-10] MEDS ORDERED: SODIUM CHLORIDE 0.9% 500 ML IV SCH (18:30)
--- NOTE | 2023-05-10 18:40 | Hospitalist Progress Note ---
Date of Service May 10, 2023 Assessment & Plan (1) Hypotension: Plan: BP 69/50 on arrival in setting of significant dehydration/poor PO intake and continued use of home BB, spironolactone, entresto, alfuzosin Random cortisol normal despite being on recent prednisone Added Midodrine and holding lasix, aldactone, Entresto and BPs now improved Also was given IVFs for hyponatremia due to hypovolemia Metoprolol increased by cardiology for rate control w/ improvement but put back down to a lower dose of 12.5mg daily of metoprolol due to 6 sec pauses while sleeping (2) Chronic systolic (congestive) heart failure: Plan: With acute on chronic HFrEF, Right sided HF Admitted w/ hypotension/syncope/AMS, YANIRA. Thought to be hypovolemic Was given IVF initially and then developed worsening respiratory distress, worsening hypoxia, CXR with pulm congestion and BNP elevated--> was then given IV lasix and then became hypovolemic, hyponatremic Given IVFs by Nephrology and now improved but having low urine output, definitely does not appear volume overloaded ECHO with dilated IVC, EF appears unchanged Lasix, Entresto, aldactone all on hold Cards consulted, appreciate assistance. Ok to remain off diuretics, spironolactone discontinued. WIll have to see about if entresto needing resumed. Rehana Miranda from CHF clinic aware patient is admitted adn will follow after discharge Monitor weights/I&O Giving another 500mL NS now (3) Hematuria: Plan: following placement of [place] catheter after straight cath for >700cc. Renal US on admit neg for obstruction (but did note L perinephric edema to note) Eliquis placed on HOLD but have since resumed and only occasional hematuria in [place] UA neg for infection Urology consulted-Catheter clogged AM 05/06, exchanged for 22F per urology. Recommends f/u in office after discharge Will maintain [place] until then Likely benefit from resuming his home alfusozin, but hypotension precludes r estarting this plus now on midodrine for hypotension Consider finasteride residential (4) Pneumonia: Plan: WBC elevation on admission w/ CT chest w/ scattered heterogenous airspace opacities most pronounced in the left lower lobe consistent with pneumonia. Also does make note of interstitial edema and small pleural effusions at that time - see CHF as above Was provided Zosyn IV on admission (MRSA nares negative) --> levaquin given sputum cx + pseudomonas--> Completed >7 day course (5) Atrial fibrillation: Plan: continues on metoprolol, eliquis Metoprolol dose was increased to 50mg at one point but having bradycardia and long pauses of 6 seconds while sleeping Now reduced back to 12.5mg daily and having 4 second pauses while sleeping but normal rates 60-80s while awake during day (6) Acute kidney injury: Plan: IMPROVED and Cr back to baseline from 1.62 on admission. ?ATN from low BP on admit in setting of diuretics/poor PO intake causing hypovolemia. Suspected YANIRA pre-renal 2nd to significant dehydration/improved w/ IVF and holding diuretics St cath x 1 for retention >700cc, sutton now in place Renal US w/o obstruction but does note enlarged prostate/bladder wall thicken ing/trace L perinephric fluid Giving IVFs intermittently (7) Hyponatremia: Plan: TSH 2.8, Random cortisol 9 Serum osm 271 , diuretics had been on hold -- see above urine osm 616 , urine sodium 172, ?component SIADH Hx cirrhosis and CHF but Nephrology believes he is hypovolemic and was given IVFs with improvement in Na+ to 131 and stable today holding lasix follow BMP (8) Chronic obstructive pulmonary disease: Plan: Patient is stable on his baseline O2 requirements, do not think that he is experiencing a COPD exacerbation at this time Duonebs available prn Incentive spirometer to be encouraged Completed course abx as outlined above. WBC wnl and afebrile (9) Hypomagnesemia: Plan: as above under afib, continue PO BID supplementation and monitor (10) Generalized weakness: Plan: PT/OT, encompass planned when able (11) Pressure ulcer: Plan: Patient notes recent small pressure ulcer on his buttocks with recent weakness and inactivity Patient noted to have signs of skin breakdown on his sacrum with a small, non- infected pressure ulcer on the right buttocks wound care nurse consulted Turn and position q2h, low air loss bed ordered (12) Hyperkalemia: Plan: K 5.3 in the ED, suspected 2nd to YANIRA/spironolactone use w/ entresto and patient stopped his lasix himself per report Spironolactone DISCONTINUED, entresto held since admit (EF normalized on ECHO compared to prior) K+ now normal (13) Elevated troponin: Plan: Initial high sen trop elevated at 27 ---> 22 on repeat. suspected demand ischemia from hypotension/possible infection/YANIRA Monitoring on telemetry as above, no CP reported Plan DVT proph-Eliquis Dispo-improving, needs rehab, stable for discharge likely tomorrow if bed available at [facility] Admission and Anticipated Discharge Date Admission Date: April 29, 2023 Subjective feels generally weak, POx dropped and required 3LNC with standing today. Tele with 4 sec pauses overnight but otherwise normal rates with afib Physical Exam Constitutional: WD/WN, vitals as above Respiratory: normal respiratory effort; no cough Auscultation: + diminished lung sounds (throughout); no crackles and no wheezes Cardiovascular: Rate/Rhythm: regular rate and + irregularly irregular Heart Sounds: no murmur Extremities: no edema Gastrointestinal (Abdomen): normal bowel sounds, soft, nontender, no hepatosplenomegaly Psychiatric: A+Ox3, euthymic affect Results & Data Results & Data Vital Signs (Past 12 Hours) Vital Signs Temp Pulse Pulse Resp BP BP Pulse Ox 05/10/23 15:21 75 05/10/23 15:07 36.6 C 89 18 115/70 98 05/10/23 11:19 36.5 C 82 18 104/61 100 05/10/23 07:55 61 05/10/23 07:55 05/10/23 07:32 36.3 C L 77 17 124/69 94 O2 Del Method O2 Flow Rate 05/10/23 15:21 05/10/23 15:07 Nasal Cannula 3 05/10/23 11:19 Nasal Cannula 3 05/10/23 07:55 05/10/23 07:55 Nasal Cannula 2 05/10/23 07:32 Nasal Cannula 2 Laboratory Results BMP reviewed PG Care Time/CCT Total # of Minutes Spent Total Time Spent with Patient: Total time spent is greater than 50% in coordination of care (as documented) at patient's floor/unit and/or counseling patient: Coding Level of Care Code 48968 SUB INP/OBS CARE 2/35MIN Diagnoses Hypotension I95.9 Chronic systolic (congestive) heart failure I50.22 Hematuria R31.9 Pneumonia J18.9 Permanent atrial fibrillation I48.21 Atrial fibrillation type: permanent Acute kidney injury N17.9 Hyponatremia E87.1 Centrilobular emphysema J43.2 COPD type: emphysema Emphysema type: centrilobular Hypomagnesemia E83.42 Generalized weakness R53.1 Pressure ulcer L89.90 Hyperkalemia E87.5 Elevated troponin R77.8 (5) Atrial fibrillation Atrial fibrillation type: permanent Qualified Code(s): I48.21 - Permanent atrial fibrillation (8) Chronic obstructive pulmonary disease COPD type: emphysema Emphysema type: centrilobular Qualified Code(s): J43.2 - Centrilobular emphysema
[2023-05-11 07:14] LABS: Basophils # (auto) 0.04 K/uL (0.00-0.20); Basophils % (auto) 0.7 %; Eosinophils # (auto) 0.21 K/uL (0.00-0.50); Eosinophils % (auto) 3.6 %; Hemoglobin 10.1 g/dl (14.0-18.0); Immature Granulocytes # (auto) 0.05 K/uL (0.01-0.20); Immature Granulocytes % (auto) 0.9 %; Lymphocytes # (auto) 0.71 K/uL (1.20-3.40); Lymphocytes % (auto) 12.1 %; Mean Corpuscular Hemoglobin 28.8 pg (25.0-34.0); Mean Corpuscular Hgb Conc 31.6 g/dL (32.0-36.0); Mean Corpuscular Volume 91.2 fL (80.0-100.0); Mean Platelet Volume 10.8 fL (9.4-12.4); Monocytes # (auto) 0.98 K/uL (0.11-0.59); Monocytes % (auto) 16.7 %; Neutrophils # (auto) 3.89 K/uL (1.40-6.50); Platelet Count 187 K/uL (130-400); RDW Coefficient of Variation 15.4 % (11.5-14.5); RDW Standard Deviation 50.1 fL (36.4-46.3); Red Blood Count 3.51 M/uL (4.70-6.10); White Blood Count 5.88 K/ul (4.8-10.8)
[2023-05-11 07:58] LABS: BUN Creatinine Ratio 32.9 (10-20); Calcium 8.8 mg/dl (8.6-10.3); Creatinine Clr Calc Pharmacy 78.9 ml/min; Est GFR (African American) 103.3 ml/min; Est GFR (Non-African American) 89.1 ml/min; Magnesium 1.5 mg/dl (1.7-2.4); Potassium 3.8 mmol/L (3.5-5.1)
[2023-05-11] MEDS: METOPROLOL SUCC 25MG EXT REL TAB PO SCH (08:10)
[2023-05-11] MEDS: APIXABAN 5 MG TABLET PO SCH (08:10)
[2023-05-11] MEDS: guaiFENesin 600 MG TABCR PO SCH (08:12)
[2023-05-11] MEDS: MAGNESIUM CHLORIDE W/CALCIUM 64MG DELAYED REL TAB PO SCH (08:12)
[2023-05-11] MEDS: PANTOprazole 40 MG TAB PO SCH (08:13)
[2023-05-11] MEDS: FLUTICASONE/VILANTEROL 200/25MCG 14 PUFFS/INHALER INH SCH (08:14)
[2023-05-11] MEDS: UMECLIDINIUM BROMIDE 62.5MCG/BLISTER 7 PUFFS/INHALER INH SCH (08:14)
[2023-05-11] MEDS: MIDODRINE HCL 2.5 MG TAB PO SCH ×2 (08:16→11:14)
[2023-05-11] MEDS: MAGNESIUM SULFATE / D5W 1 GM/100 ML BAG IV SCH (08:27)
[2023-05-11] MEDS ORDERED: TRIAMCINOLONE ACET 0.025% CR 15 GM TUBE EXT SCH (12:15)
--- NOTE | 2023-05-11 12:32 | Discharge Summary ---
Discharge Summary Date of Service May 11, 2023 Notes For Next Care Provider Medication Changes From Visit Added midodrine 2.5mg po tid x 1 week then STOP Holding Entresto, Uroxatral Stop spironolactone Changed to MagCl from Mag oxide Admission HPI Per Admitting Provider Gil is an 82 year old male with a PMH significant for COPD on 2L NC HS/prn, alcoholic cirrhosis, aifb on Elqiuis, PAD, and BPH who presented to the [facility] ED via EMS on 04/29/23 after possible syncopal/seizure-like episode at home. He was noted to be hypotensive at 69/50 and tachycardic at 98 but otherwise stable. Labs were significant for a leukocytosis of 10.8 with neutrophil predominance of 9.13, lymphocyte count of 0.55, cr of 1.62 (baseline is near 0.8), BUN of 38, sodium of 130 (has been near 130 since 03/2023), chloride of 92, potassium of 5.3, mag of 1.6, initial high sen trop of 27, and full respiratory biofire negative. CT of the head/brain wo con was read as no acute findings. Chest xray was read as "No significant change compared to the prior study. Emphysema and chronic interstitial thickening again noted.". Prior to admission the patient was given 1.5L NSS, 800 mg PO Magnesium, and ordered a dose of zosyn. At the time of the exam the patient was lying in bed in no acute distress. He states that since his last admission in March his respiratory status has not improved and he has been getting progressively more weak. He states that he completed the antibiotics and steroids on discharge. He also confirms that he completed the recent course of Prednisone prescribed by Pulmonology after his clinic visit on 04/13/23. His oral intake has been poor since his last discharge. He has been taking his Eliquis, metoprolol, Entresto, and Spironolactone as prescribed but has not needed to take his prn Lasix as he has been without LE swelling. This am he woke and felt weak. His tried to help him sit on a leather recliner in their living room. He states that he did not sit far enough back and slid off the front of the recliner, landing on his buttocks. He denies losing consciousness or hitting his head. He was too weak to get up on his own so his Son and Daughter came over. His son lifted him up and sat him on the recliner. Shortly after he states that he had an episode were he momentarily lost his awareness. He states that his BL vision darkened over this time but he did not lose consciousness. He denies losing control of his bowel or bladder and was quickly back to his normal cognitive state after the episode. His family called EMS due to the alteration in cognition. He states that he has been bringing up large amounts of green sputum since last discharge. He denies other neurologic events or symptoms, chest pain, increased O2 needs, abd pain, nausea, vomiting, diarrhea, dysuria, hematuria, and LE swelling. He confirms he is still a DNR/DNI. Please refer to Dr. Brenner's attestation for any changes to the treatment plan Principal Dx & Hospital Course #1 = Principal Diagnosis (1) Hypotension: BP 69/50 on arrival in setting of significant dehydration/poor PO intake and continued use of home BB, spironolactone, entresto, alfuzosin, and lasix Random cortisol normal despite being on recent prednisone Added Midodrine 5mg po tid and now weaned down to 2.5mg po tid x 1 week then stop Holding lasix, aldactone, Entresto and BPs now improved-resume as outpt as tolerated-defer to CHF clinic and/or PCP Was given IVFs for hyponatremia due to hypovolemia Metoprolol increased by cardiology for rate control w/ improvement but put back down to a lower dose of 12.5mg daily of metoprolol due to 6 sec pauses while sleeping (2) Chronic systolic (congestive) heart failure: With acute on chronic HFrEF, Right sided HF Admitted w/ hypotension/syncope/AMS, YANIRA. Thought to be hypovolemic-Was given IVF initially and then developed worsening respiratory distress, worsening hypoxia, CXR with pulm congestion and BNP elevated--> was then given IV lasix and then became hypovolemic, hyponatremic Given IVFs by Nephrology and now improved, definitely does not appear volume overloaded ECHO with dilated IVC, EF appears unchanged Lasix, Entresto, aldactone all on hold at time of discharge. Would resume Entesto first if tolerated and only give lasix prn Cards consulted, appreciate assistance. Ok to remain off diuretics, spironolactone discontinued. Rehana Miranda from CHF clinic aware patient is admitted and will follow after discharge Monitor weights/I&O (3) Hematuria: With urinary retention requiring placement of sutton catheter (was straight cathed for >700mL) Renal US on admit neg for obstruction (but did note L perinephric edema to note) Eliquis placed on HOLD but have since resumed and only occasional hematuria in Sutton UA neg for infection Urology consulted-Catheter clogged AM 05/06, exchanged for 22F per urology. 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 Also does make note of interstitial edema and small pleural effusions at that time - see CHF as above Was provided Zosyn IV on admission (MRSA nares negative) --> levaquin given sputum cx + pseudomonas--> Completed >7 day course Follow up chest imaging as an outpatient to ensure clearance Continue Mucinex, inhalers for COPD (5) Atrial fibrillation: Rates controlled continues on metoprolol, eliquis Metoprolol dose was increased to 50mg at one point but having bradycardia and long pauses of 6 seconds while sleeping Now reduced back to 12.5mg daily and having occasional 3 second pauses while sleeping but normal rates 60-80s while awake during day (6) Acute kidney injury: IMPROVED and Cr back to baseline from 1.62 on admission. ?ATN from low BP on admit in setting of diuretics/poor PO intake causing hypovolemia. Suspected YANIRA pre-renal 2nd to significant dehydration/improved w/ IVF and holding diuretics St cath x 1 for retention >700cc, sutton now in place Renal US w/o obstruction but does note enlarged prostate/bladder wall thickening/trace L perinephric fluid gave IVFs intermittently Follow BMP as outpt (7) Hyponatremia: TSH 2.8, Random cortisol 9 Serum osm 271 , diuretics had been on hold -- see above urine osm 616 , urine sodium 172, ?component SIADH but most likely hypovolemia and Ur Na+ falsely high due to lasix Nephrology consulted and believes he was hypovolemic and was given IVFs with improvement in Na+ to 133 which is around his baseline holding lasix and aldactone follow BMP as outpt (8) Chronic obstructive pulmonary disease: Patient is stable on his baseline O2 requirements, do not think that he is experiencing a COPD exacerbation at this time Duonebs available prn Incentive spirometer to be encouraged Completed course abx as outlined above. WBC wnl and afebrile (9) Hypomagnesemia: continue PO BID supplementation and monitor gave some IV mag on day of discharge (10) Generalized weakness: PT/OT, encompass planned (11) Pressure ulcer: Patient notes recent small pressure ulcer on his buttocks with recent weakness and inactivity Patient noted to have signs of skin breakdown on his sacrum with a small, non- infected pressure ulcer on the right buttocks wound care nurse consulted Turn and position q2h, low air loss bed ordered (12) Hyperkalemia: K 5.3 in the ED, suspected 2nd to YANIRA/spironolactone use w/ entresto and patient stopped his lasix himself per report Spironolactone DISCONTINUED, entresto held since admit (EF normalized on ECHO compared to prior) K+ now normal (13) Elevated troponin: Initial high sen trop elevated at 27 ---> 22 on repeat. suspected demand ischemia from hypotension/possible infection/YANIRA Monitoring on telemetry as above, no CP reported Plan DVT proph-Eliquis Dispo-stable for discharge to acute rehab at [facility] Rash on right knee-treat with triamcinolone cream bid prn Discharge Exam Constitutional WD/WN, vitals as above Respiratory normal respiratory effort; no cough Auscultation: + diminished lung sounds (throughout); no crackles and no wheezes Cardiovascular Rate/Rhythm: regular rate and + irregularly irregular Heart Sounds: no murmur Extremities: no edema Gastrointestinal (Abdomen) normal bowel sounds, soft, nontender, no hepatosplenomegaly Skin erythematous maculopapular rash on right knee Psychiatric A+Ox3, euthymic affect Genitourinary Sutton cath in place with clear yellow urine Updated Medication List Medication Instructions Recorded Confirmed Type multivitamin (Daily Multi-Vitamin 1 tab PO QAM 07/20/20 04/29/23 History tablet) Oxygen Home #2 L 10/14/21 04/29/23 Rx alfuzosin 10 mg tablet,extended 10 mg PO QPM 07/11/22 04/29/23 History release 24 hr (Uroxatral) metoprolol succinate 25 mg 12.5 mg (1/2 x 25 mg) PO QAM #45 09/26/22 04/29/23 Rx tablet,extended release 24 hr tabs budesonide-formoterol HFA 160 2 puff inhalation BID #3 Inhalers 09/27/22 04/29/23 Rx mcg-4.5 mcg/actuation aerosol inhaler (Symbicort) tiotropium bromide 2.5 2 puff inhalation QAM #3 Inhalers 10/05/22 04/29/23 Rx mcg/actuation mist for inhalation (Spiriva Respimat) furosemide 40 mg tablet 40 mg PO DAILY PRN weight gain #90 01/12/23 04/29/23 Rx tabs albuterol sulfate 90 mcg/actuation 2 puff inhalation QID PRN 02/07/23 04/29/23 Rx aerosol inhaler (Ventolin HFA) shortness of breath or wheezing #18 grams atorvastatin 20 mg tablet 20 mg PO HS #90 tabs 03/08/23 04/29/23 Rx apixaban 5 mg tablet (Eliquis) 5 mg PO BID 03/20/23 04/29/23 History sacubitril 24 mg-valsartan 26 mg 1 tab PO BID #180 tabs 04/27/23 04/29/23 Rx tablet (Entresto) omeprazole 20 mg capsule,delayed 20 mg PO DAILY 04/29/23 04/29/23 History release guaifenesin 600 mg tablet, 600 mg PO Q12 #60 tabs 05/11/23 Rx extended release 12 hr (Mucinex) magnesium chloride 64 mg 64 mg PO BID #60 tabs 05/11/23 Rx (magnesium chloride) tablet,delayed release (Mag 64) midodrine 2.5 mg tablet 2.5 mg PO TID@0800,1200,1700 #21 05/11/23 Rx tabs triamcinolone acetonide 0.025 % 1 applic EXT BID PRN rash on right 05/11/23 Rx topical cream knee #15 grams Hospital Stay Data Consultations 04/29/23 19:55 ED Decision to Admit Stat 05/03/23 13:41 Consult Cardiology Routine 05/05/23 18:01 Consult Urology Routine 05/07/23 07:41 Consult Nephrology Routine Diagnostic Imagining Performed 04/29/23 17:45 CT head/brain wo con Stat 04/29/23 20:08 US renal/blad retro comp Urgent 04/30/23 14:32 CT chest diagnostic wo con Urgent ECHO Pending Results Patient Have Any Pending Studies at Discharge: No Discharge Instructions Given to Patient (Per Discharging Provider) You were admitted for low blood pressures which caused you to pass out. Your Entresto, Spironolactone, and Uroxatral were all STOPPED and you were started on a medication called midodrine to increase your blood pressure. You were given IV fluids to improve your blood pressure as you were dehydrated. The midodrine is being weaned down and then will be stopped. Your Entresto and Spironolactone as well as Uroxatral will continue to be on hold. Please follow up with the CHF clinic after discharge as scheduled. You should only take lasix as needed. You were treated with antibiotics for pneumonia while here and grew Pseudomonas in your sputum. Continue your inhalers, Mucinex and home oxygen at 2LNC. You also had some urinary retention and blood in the urine. The Sutton catheter will be maintained and you will need follow up with the Urologist within 1-2 weeks to see if this can be removed. Total Time Total Time Spent Total Time Spent (In Minutes): 45 min [address]iscuss[address] care with [address]. Coleman at [facility] on day of discharge Coding Level of Care Code 08924 INP/OBS DISCH >30 MIN Diagnoses Hypotension I95.9 Chronic systolic (congestive) heart failure I50.22 Hematuria R31.9 Pneumonia J18.9 Permanent atrial fibrillation I48.21 Atrial fibrillation type: permanent Acute kidney injury N17.9 Hyponatremia E87.1 Centrilobular emphysema J43.2 COPD type: emphysema Emphysema type: centrilobular Hypomagnesemia E83.42 Generalized weakness R53.1 Pressure ulcer L89.90 Hyperkalemia E87.5 Elevated troponin R77.8
== END 2023-05-11 13:28 | DRG 177 ==
LOC: ED 17:21 → SUATTDRO 20:17 → 4W 20:17 → 2S 05-01 19:25

== ENCOUNTER 2023-09-04 14:00 | Inpatient (IN) ==
--- NOTE | 2023-09-04 14:39 | XRay Report ---
XR chest 1V portable CLINICAL HISTORY: Chest pain, nonspecific COMPARISON STUDY: Chest CT April 30, 2023. Chest radiograph October 08, 2023. FINDINGS: Skin folds project over the left chest. There is no pneumothorax. Small bilateral pleural e ffusions are present with bibasilar opacities, greater on the left. Interstitial thickening is noted. Cardiomegaly is unchanged. Mitral valve prosthesis is in place. Mediastinal contours are stable. IMPRESSION: 1. Cardiomegaly with interstitial pulmonary edema and small bilateral pleural effusions. 2. Bibasilar opacities, greater on the left. The findings could reflect pneumonia or atelectasis. Rad iographic follow-up to ensure resolution is recommended. ACT 112: Negative or not required by law. Electronically signed by: Osbaldo Milner M.D. 09/04/2023 2:37 PM
--- NOTE | 2023-09-04 14:50 | Emergency Department Note ---
History of Present Illness General Chief Complaint: Shortness of Breath/Dyspnea Stated Complaint: SOB Time Seen by Provider: 09/04/23 14:03 History of Present Illness Provider Complaint: shortness of breath, cough and chest pain Onset (ago): day(s) (2) Severity: moderate Consistency/Duration: + progressively worsening Maximum Pain Intensity: 0 Relieved By: + oxygen and + upright position Exacerbated By: + coughing Context: + choking/aspiration (2 days ago while trying to swallow a doxycycline tablet that he is using to be treated for pneumonia) Known history of: COPD, congestive heart failure, recurrent pneumonia and aspiration pneumonia Associated symptoms: + sputum production, + orthopnea, + nausea/vomiting and + chest congestion; no hemoptysis or no abdominal pain Related Data Home oxygen amount: 2 liters Home Medications Medication Instructions Recorded Confirmed Type multivitamin (Daily Multi-Vitamin 1 tab PO QAM 07/20/20 08/23/23 History tablet) Oxygen Home #2 L 10/14/21 08/23/23 Rx metoprolol succinate 25 mg 12.5 mg (1/2 x 25 mg) PO QAM #45 09/26/22 08/23/23 Rx tablet,extended release 24 hr tabs budesonide-formoterol HFA 160 2 puff inhalation BID #3 Inhalers 09/27/22 08/23/23 Rx mcg-4.5 mcg/actuation aerosol inhaler (Symbicort) tiotropium bromide 2.5 2 puff inhalation QAM #3 Inhalers 10/05/22 08/23/23 Rx mcg/actuation mist for inhalation (Spiriva Respimat) albuterol sulfate 90 mcg/actuation 2 puff inhalation QID PRN 02/07/23 08/23/23 Rx aerosol inhaler (Ventolin HFA) shortness of breath or wheezing #18 grams atorvastatin 20 mg tablet 20 mg PO HS #90 tabs 03/08/23 08/23/23 Rx omeprazole 20 mg capsule,delayed 20 mg PO DAILY 04/29/23 08/23/23 History release apixaban 5 mg tablet (Eliquis) 5 mg PO BID #180 tabs 07/12/23 08/23/23 Rx furosemide 40 mg tablet 80 mg PO DAILY weight gain 07/25/23 08/23/23 History magnesium chloride 64 mg 400 mg PO DAILY 08/08/23 08/23/23 History (magnesium chloride) tablet,delayed release (Mag 64) doxycycline hyclate 100 mg tablet 100 mg PO BID 14 days #28 tabs 08/25/23 08/30/23 Rx dutasteride 0.5 mg capsule 0.5 mg PO DAILY #90 caps 08/25/23 08/30/23 Rx Allergies Allergy/AdvReac Type Severity Reaction Status Date / Time cephalexin [From Keflex] Allergy Hives Verified 08/30/23 08:58 Past Med/Surg History Problem List (Updated 09/04/23 @ 16:03 by Ton Ferrer MD) Acute exacerbation of congestive heart failure (Acute) Aspiration pneumonia (Acute) Traumatic wound (Acute) Toe ulcer, right (Acute) Ulcer of toe of left foot (Acute) Urinary retention Nonischemic cardiomyopathy CAD (coronary artery disease) Nonobstructive per 03/2015 cardiac cath per cardio records Right heart failure Hypomagnesemia (Acute) Acute kidney injury (Acute) Pressure ulcer Anemia Chronic hypoxemic respiratory failure Acute respiratory failure with hypoxia Elevated brain natriuretic peptide (BNP) level (Acute) Bradycardia Hx of amputation of lesser toe (~07/2022) Osteomyelitis Hypertension (Chronic) History of heart valve replacement MITRAL VALVE REPLACED (PHENIX) Chronic systolic (congestive) heart failure (Acute) Atrial fibrillation (Acute) Anticoagulant long-term use (Acute) Arteriosclerotic coronary artery disease (Acute) PAD (peripheral artery disease) (Chronic) Hyperlipidemia Chronic obstructive pulmonary disease 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 (Acute) Acid reflux (Acute) Pulmonary hypertension assoc with unclear multi-factorial mechanisms Retinal vein occlusion Pre-diabetes Cirrhosis Medical History Hematuria Low blood pressure reading Hypoxia Right lower lobe pneumonia 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 Recommend 1 year follow up. Heart failure with mid-range ejection fraction History of tobacco use Diverticulosis SNHL (sensorineural hearing loss) Seasonal allergies Tinnitus GERD (gastroesophageal reflux disease) Atrial fibrillation Hypertension Surgical History H/O mitral valve replacement 2016 Status post Mohs surgery left cheek, left arm (squamous cell) Status post anal fissurectomy History of colonoscopy History of tooth extraction History of tonsillectomy History of cardiac radiofrequency ablation History of cardiac cath 03/2015 > no stents Family History Father Family hx colonic polyps Mother Heart disease Other Hypertension No family history of adverse response to anesthesia Social History Smoking Status: Former smoker Tobacco Type: Cigarettes Age Started Using Tobacco: 17; Age Quit Using Tobacco: 62; packs per day: 2; Cigarettes Per Day: 2 packs; Second Hand Exposure: No; Do You Dip or Chew Tobacco: No; Hx Alcohol Use: Yes Alcohol type: beer Alcohol Intake Frequency: 2-3 x/Week Hx Substance Use: No Preferred Language: Slovak Communication Ability: Effective Visual Impairment: Limited Hearing Ability: Normal Visual Artist Required: No Beliefs That Will Affect Care: None marital status: Current Living Situation: Spouse Current Living Situation Comment: Home with current occupational status: retired How many Children do You have: 4 How many Children do You have Comment: One child is local and involved with care. Others are in [place]. Also has a brother and that can assist with care Feels Safe at Home: Yes Childhood Exposure to Second-Hand Smoke: Yes Diet: regular Diet Comment: Educated to increase protein, vitamin c d and zinc caffeine: Yes during the past year weight has: decreased > 10 lbs Dental Care, Regularly: Yes Physical Activity Frequency: 1-2 Times per Week Physical Activity Frequency Comment: walks Seatbelt Use: always Sunscreen Use: Yes Do you think of yourself as: straight/heterosexual Assistive Devices: Walker Physical Exam 2 Vital Signs: Vital Signs - 24 hr 09/04/23 14:14 09/04/23 14:14 09/04/23 14:14 Temperature 36.8 C Temperature Source Oral Pulse Rate 96 H Respiratory Rate 24 Respiratory Effort / Characteristics Spontaneous Short of Breath Spontaneous SOB on Exertion Respiratory Depth Shallow Shallow Respiratory Patter n Tachypnea Tachypnea Blood Pressure 133/88 Blood Pressure [Ri ght Arm] Blood Pressure Yadira n 103 Blood Pressure Yadira n [Right Arm] Blood Pressure Pos ition Semi-fowlers Blood Pressure Pos ition [Right Arm] Pulse Oximetry 89 L Oxygen Delivery Me thod Nasal Cannula Nasal Cannula Nasal Cannula Oxygen Flow Rate 2 3 2 Sepsis Recent Feve r Within 48 Hours No Sepsis New/Unexpla ined Change in Men jeb Status N/A Sepsis Action Take n by Nursing No Action Required Oxygen Flow Rate - Titration 3 Pulse Oximetry Pos t Tiitration 95 09/04/23 14:14 09/04/23 14:14 09/04/23 14:19 Temperature Temperature Source Pulse Rate 92 H Respiratory Rate 24 Respiratory Effort / Characteristics Spontaneous Respiratory Depth Normal Respiratory Patter n Tachypnea Blood Pressure Blood Pressure [Ri ght Arm] Blood Pressure Yadira n Blood Pressure Yadira n [Right Arm] Blood Pressure Pos ition Blood Pressure Pos ition [Right Arm] Pulse Oximetry 97 95 Oxygen Delivery Me thod Nasal Cannula Nasal Cannula Oxygen Flow Rate 3 2 Sepsis Recent Feve r Within 48 Hours Sepsis New/Unexpla ined Change in Men jeb Status Sepsis Action Take n by Nursing Oxygen Flow Rate - Titration Pulse Oximetry Pos t Tiitration 09/04/23 15:52 Temperature Temperature Source Pulse Rate Respiratory Rate 24 Respiratory Effort / Characteristics Spontaneous Respiratory Depth Respiratory Patter n Tachypnea Blood Pressure Blood Pressure [Ri ght Arm] 133/88 Blood Pressure Yadira n Blood Pressure Yadira n [Right Arm] 103 Blood Pressure Pos ition Blood Pressure Pos ition [Right Arm] Semi-fowlers Pulse Oximetry 95 Oxygen Delivery Me thod Nasal Cannula Oxygen Flow Rate 2 Sepsis Recent Feve r Within 48 Hours Sepsis New/Unexpla ined Change in Men jeb Status Sepsis Action Take n by Nursing Oxygen Flow Rate - Titration Pulse Oximetry Pos t Tiitration Physical Exam: Physical Exam HENT: Exam performed. - Head: Normocephalic and atraumatic. EYES: Conjunctivae and EOM are normal. Right eye exhibits no discharge. Left eye exhibits no discharge. No scleral icterus. NECK: Normal range of motion. Neck supple. No JVD present. CV: Tachycardic rate, irregular rhythm, normal heart sounds and intact distal pulses. Palpable radial pulses bue. PULM/CHEST: Rhonchi bilaterally. Inspiratory rales at the bilateral bases. ABD: The abdomen is soft. There is no tenderness. NEURO: Motor and sensation grossly intact. SKIN: Skin is warm and dry. He is not diaphoretic. PSYCH: normal mood and affect. Behavior is normal. Judgment and thought content normal. Course Course 1403: The patient was evaluated in room A9. A complete history and physical exam was performed Cardiac monitoring: An order was placed for continuous cardiac monitoring. The monitor shows a rate of 110 with atrial fibrilation rhythm interpreted by me 1601: Vital signs stable. Chest x-ray shows cardiomegaly and possible infiltrates. Lactic acid 2.9. High-sensitivity troponin and BNP elevated. Patient treated with Zosyn for possible aspiration pneumonia as well as Lasix. Patient be admitted to the [facility]ist team. Administered Medications Discontinued Medications Piperacillin Sod/Tazobactam Sod (Zosyn) 4.5 gm in 120 mls @ 240 mls/hr IV NOW ONE Stop: 09/04/23 15:54 Last Admin: 09/04/23 15:55 Dose: 240 mls/hr Documented By: NOEMI Medical Decision Making Laboratory Data Attestation: I reviewed the patient's lab results. 09/04/23 14:54 09/04/23 14:54 Lab Results 09/04/23 Range/Units 14:54 WBC 8.67 (4.8-10.8) K/ul RBC 3.93 L (4.70-6.10) M/uL Hgb 11.0 L (14.0-18.0) g/dl Hct 36.0 L (42.0-52.0) % MCV 91.6 (80.0-100.0) fL MCH 28.0 (25.0-34.0) pg MCHC 30.6 L (32.0-36.0) g/dL RDW Std Deviation 52.2 H (36.4-46.3) fL RDW Coeff of Kamron 15.9 H (11.5-14.5) % Plt Count 168 (130-400) K/uL MPV 12.4 (9.4-12.4) fL Immature Gran % (Auto) 0.2 % Neut % (Auto) 73.9 % Lymph % (Auto) 13.4 % [place] % (Auto) 10.6 % Eos % (Auto) 1.2 % Baso % (Auto) 0.7 % Neut # (Auto) 6.41 (1.40-6.50) K/uL Lymph # (Auto) 1.16 L (1.20-3.40) K/uL [place] # (Auto) 0.92 H (0.11-0.59) K/uL Eos # (Auto) 0.10 (0.00-0.50) K/uL Baso # (Auto) 0.06 (0.00-0.20) K/uL Immature Gran # (Auto) 0.02 (0.01-0.20) K/uL PT 15.4 H (9.0-12.0) Seconds INR 1.5 H (0.9-1.1) APTT 34 H (21-31) Seconds PTT Ratio 1.3 VBG pH 7.36 (7.36-7.41) VBG pCO2 63 H (38-50) mmHg VBG pO2 < 20 mmHg VBG HCO3 36 mmol/L VBG O2 Saturation < 60.0 % VBG Base Excess 7.9 mEq/L Sodium 143 (136-145) mmol/L Potassium 4.5 (3.5-5.1) mmol/L Chloride 101 (98-107) mmol/L Carbon Dioxide 32 (21-32) mmol/L Anion Gap 10 (3-11) BUN 28 H (6-23) mg/dl Creatinine 0.90 (0.6-1.4) mg/dl Est Cr Clr Drug Dosing 63.6 ml/min Est GFR ( Amer) 92.5 ml/min Est GFR (Non-Af Amer) 79.8 ml/min BUN/Creatinine Ratio 31.1 H (10-20) Glucose 81 (70-99(Fasting)) mg/dl Lactate 2.9 H* (0.4-2.0) mmol/L Calcium 9.4 (8.6-10.3) mg/dl Magnesium 1.8 (1.7-2.4) mg/dl Troponin I High Sens 38.9 H (0-20) pg/ml B-Natriuretic Peptide 1627 H (0-100) pg/ml Lipase 9 L (11-82) U/L Procalcitonin 0.05 (0-0.5) ng/ml Imaging Data Attestation: I personally reviewed and interpreted this imaging study as follows: My Impression: Chest x-ray: Cardiomegaly with mild cephalization and bilateral infiltrates. Radiologist's Impression: Chest X-Ray 09/04/23 14:04 XR chest 1V portable CLINICAL HISTORY: Chest pain, nonspecific COMPARISON STUDY: Chest CT April 30, 2023. Chest radiograph October 08, 2023. FINDINGS: Skin folds project over the left chest. There is no pneumothorax. Small bilateral pleural effusions are present with bibasilar opacities, greater on the left. Interstitial thickening is noted. Cardiomegaly is unchanged. Mitral valve prosthesis is in place. Mediastinal contours are stable. IMPRESSION: 1. Cardiomegaly with interstitial pulmonary edema and small bilateral pleural effusions. 2. Bibasilar opacities, greater on the left. The findings could reflect pneumonia or atelectasis. Radiographic follow-up to ensure resolution is recommended. ACT 112: Negative or not required by law. Electronically signed by: Osbaldo Milner M.D. 09/04/2023 2:37 PM ECG Data Attestation: I personally reviewed and interpreted this ECG as follows: Interpretation: Atrial fibrillation with a rate of 109. QRS 136 QTc 439. Right bundle branch block present. No ST elevation or ST depression. [facility] Narrative 1403: The patient was evaluated in room A9. A complete history and physical exam was performed Cardiac monitoring: An order was placed for continuous cardiac monitoring. The monitor shows a rate of 110 with atrial fibrilation rhythm interpreted by me 1601: Vital signs stable. Chest x-ray shows cardiomegaly and possible infiltrates. Lactic acid 2.9. High-sensitivity troponin and BNP elevated. Patient treated with Zosyn for possible aspiration pneumonia as well as Lasix. Patient be admitted to the [facility] hospitalist team. Impression & Plan Aspiration pneumonia, Acute exacerbation of congestive heart failure Discharge Plan Visit Data Chief Complaint: Shortness of Breath/Dyspnea Stated Complaint: SOB ED Provider: Ton Ferrer Discharge Problem: Aspiration pneumonia, Acute exacerbation of congestive heart failure Patient Disposition: Admitted As Inpatient Forms Stand Alone Forms: My [facility] Prescriptions Prescriptions: No Action metoprolol succinate 25 mg tablet extended release 24 hr 12.5 mg PO QAM Qty: 45 3RF Symbicort 160-4.5 mcg/actuation HFA aerosol inhaler 2 puff INHALATION BID Qty: 3 3RF Hold Instructions: nebulizer Spiriva Respimat 2.5 mcg/actuation mist 2 puff INH QAM Qty: 3 3RF Hold Instructions: nebs albuterol sulfate [Ventolin HFA] 90 mcg/actuation HFA aerosol inhaler 2 puff inhalation QID PRN (Reason: shortness of breath or wheezing) Qty: 18 5RF atorvastatin 20 mg tablet 20 mg PO HS Qty: 90 3RF Eliquis 5 mg tablet 5 mg PO BID Qty: 180 3RF Rx Instructions: TAKE 1 TABLET BY MOUTH TWICE A DAY doxycycline hyclate 100 mg tablet 100 mg PO BID 14 Days Qty: 28 0RF multivitamin [Daily Multi-Vitamin] Tablet 1 tab PO QAM (DME) Oxygen Home Liters Per Minute See Rx Instructions .ROUTE .MEDSUPPLY Qty: 2 0RF Rx Instructions: 2 L/min via nasal cannula to be used with exertion and at night when sleeping dutasteride 0.5 mg capsule 0.5 mg PO DAILY Qty: 90 3RF Mag 64 64 mg tablet,delayed release (DR/EC) 400 mg PO DAILY furosemide 40 mg tablet 80 mg PO DAILY omeprazole 20 mg capsule,delayed release(DR/EC) 20 mg PO DAILY Referrals Referrals: Juan Ramos DO [Primary Care Provider] - Discharge Problem: Aspiration pneumonia Qualifiers: Aspiration pneumonia type: unspecified Laterality: unspecified laterality Lung location: unspecified part of lung Qualified Code(s): J69.0 - Pneumonitis due to inhalation of food and vomit Acute exacerbation of congestive heart failure Qualifiers: Heart failure type: unspecified Qualified Code(s): I50.9 - Heart failure, unspecified
[2023-09-04 15:18] LABS: Base Excess VBG 7.9 mEq/L; HCO3 VBG 36 mmol/L; Oxygen Saturation VBG < 60.0 %; PCO2 VBG 63 mmHg (38-50); PO2 VBG < 20 mmHg; pH VBG 7.36 (7.36-7.41)
[2023-09-04 15:25] LABS: Basophils # (auto) 0.06 K/uL (0.00-0.20); Basophils % (auto) 0.7 %; Eosinophils % (auto) 1.2 %; Immature Granulocytes # (auto) 0.02 K/uL (0.01-0.20); Immature Granulocytes % (auto) 0.2 %; Lymphocytes # (auto) 1.16 K/uL (1.20-3.40); Lymphocytes % (auto) 13.4 %; Mean Corpuscular Hgb Conc 30.6 g/dL (32.0-36.0); Mean Corpuscular Volume 91.6 fL (80.0-100.0); Mean Platelet Volume 12.4 fL (9.4-12.4); Monocytes # (auto) 0.92 K/uL (0.11-0.59); Monocytes % (auto) 10.6 %; Neutrophils # (auto) 6.41 K/uL (1.40-6.50); Neutrophils % (auto) 73.9 %; Platelet Count 168 K/uL (130-400); RDW Coefficient of Variation 15.9 % (11.5-14.5); RDW Standard Deviation 52.2 fL (36.4-46.3); Red Blood Count 3.93 M/uL (4.70-6.10); White Blood Count 8.67 K/ul (4.8-10.8)
[2023-09-04 15:39] LABS: BUN Creatinine Ratio 31.1 (10-20); Calcium 9.4 mg/dl (8.6-10.3); Creatinine Clr Calc Pharmacy 63.6 ml/min; Est GFR (African American) 92.5 ml/min; Est GFR (Non-African American) 79.8 ml/min; Magnesium 1.8 mg/dl (1.7-2.4); Potassium 4.5 mmol/L (3.5-5.1)
[2023-09-04 15:47] LABS: Troponin I High Sensitivity 38.9 pg/ml (0-20)
[2023-09-04 15:51] LABS: INR 1.5 (0.9-1.1); Partial Thromboplastin Ratio 1.3; Partial Thromboplastin Time 34 Seconds (21-31); Prothrombin Time 15.4 Seconds (9.0-12.0)
[2023-09-04] MEDS: PIPERACILLIN/TAZOBACTAM 4.5 GM/120 ML BAG IV ONE (15:55)
[2023-09-04 16:07] LABS: Influenza A virus by PCR Negative (Neg); Influenza B virus by PCR Negative (Neg); RSV by PCR Negative (Neg); SARS CoV2 RNA(COVID-19) Ceph NEGATIVE (Negative)
--- NOTE | 2023-09-04 16:13 | History & Physical Report ---
Date of Service September 04, 2023 Assessment & Plan (1) SOB (shortness of breath): Plan: -Admit to med/tele on pulse oximetry -Currently hemodynamically stable, stable on his baseline 2L NC, and non-toxic appearing -Presented to the ED today for progressive SOB, loss of appetite, and productive cough since experiencing a chocking event the evening of 09/01/23 -He is without a leukocytosis, procal is WNL -CXR today was read as cardiomegaly with interstitial pulmonary edema, small BL pleural effusions, and bibasilar opacities -Patient was given a dose of zosyn in the ED for possible aspiration pneumonia -At this time his SOB is likely multifactorial including CHF exacerbation and possible aspiration pneumonia, we will treat both at this time -Denies increasing his sodium or fluid intake at home, has been taking 40 mg PO lasix daily (did not have his am dose) -He is not significantly volume overloaded at this time, will give 20 mg IV lasix now and watch how he responds overnight, can resume IV diuresis tomorrow if still overloaded -S/P a dose of Zosyn in the ED, continue this for now to cover aspiration pneumonia >If MRSA swab is positive will switch to Cefepime and Vancomycin -Incentive spirometry, flutter therapy, prn O2 to keep SpO2 between 89-92% -Will obtain sputum culture with gram stain and MRSA nasal swab -Home Eliquis for DVT PPX -HH diet with 2gm sodium and 1800 mL fluid restrictions -AM CBC, CMP, mag, PT/INR (2) Acute exacerbation of congestive heart failure: Plan: -See SOB (3) Aspiration pneumonia: Plan: -See SOB (4) Lactate blood increased: Plan: -Initial lactate elevated at 2.9 -Patient appears non-toxic and has been hemodynamically stable -Could be elevated due to poor perfusion due to decreased cardiac output and decreased clearance from his known cirrhosis -Continue current treatment plan as per SOB and chronic wound plan -Can give small IV fluid boluses if needed during admission (5) Elevated troponin: Plan: -Initial high sen trop elevated at 38, 2 hour repeat is in process -Patient denies chest pain -No acute ST segment or T-wave changes on ECG -Likely due to demand from CHF exacerbation -Will follow repeat high sen trop, if still significantly increasing will continue to trend and obtain TTE tomorrow -Continue to monitor on tele (6) Chronic wound: Plan: -Follows with the wound care clinic for wounds on the BL great toes and dorsum of the left hand -Wounds appear stable today, no signs of progressive since he stopped doxycycline on 08/31 -Will continue Zosyn for now to cover aspiration pneumonia and his chronic wounds, if MRSA swab is positive, will transition to Cefepime/vancomycin to cover aspiration pneumonia and his chronic wounds -Wound care nurse consult placed (7) Chronic hypoxemic respiratory failure: Plan: -Currently stable on 2L NC -Continue prn O2 to keep SpO2 between 89-92% -Continue home breathing treatments -Supportive care per SOB plan (8) Hypertension: Plan: -Stable -Continue to monitor BP while on IV diuresis (9) Atrial fibrillation: Plan: -Stable -Continue metoprolol and Eliquis Plan The patient was discussed with Dr. Palencia at the time of the admission History of Present Illness Chief Complaint: Recent aspiration, increased SOB and weakness Primary Care Provider: DO Gil Lucas is an 83 year old male with a PMH significant for COPD on 2L NC HS/prn, alcoholic cirrhosis, aifb on Elqiuis, PAD, and BPH who presented to the [facility] ED on 09/04/23 with a chief complaints of SOB and generalized weakness after an as piration event on 09/01/23. He remained hemodynamically stable stable on his 2L NC in the ED. Labs were significant for a VBG pH WNL with pCO2 of 63 and pO2 < 20, initial lactate of 2.9, initial high sen trop of 38, BNP of 1627 (up from 1540 since 07/28/23), procal WNL, and influenza/RSV/Covid19 negative. Chest xray was read as "1. Cardiomegaly with interstitial pulmonary edema and small bilateral pleural effusions. 2. Bibasilar opacities, greater on the left. The findings could reflect pneumonia or atelectasis. Radiographic follow-up to ensure resolution is recommended.". Prior to admission the patient was given a dose of Zosyn. He was not given IV fluids in the ED at the patient had been hemodynamically stable with evidence of congestive failure on CXR today. At the time of the exam the patient was sitting in bed in no acute distress with his bedside, history was obtained from both. The patient had been taking a 14 day course of Doxycycline for the left great toe infection. He is followed by the wound care clinic for his chronic wounds, this is who prescribed the Doxycycline. On the evening of 08/31 the patient had an episode of chocking while taking his evening dose of Doxycycline. Since then he has had little to no appetite, intermittent productive cough with yellow/brown sputum, and generalized weakness. He has been taking his medications as prescribed, expect the doxycycline as he was concerned he would have further episodes of choking/aspiration, his last dose of Doxycycline was the evening of 08/31. He denies recent fever, chills, chest pain, SOB at rest, hemoptysis, nausea/vomiting, dysuria hematuria, melena, diarrhea, worsening LE swelling, and recent trauma. He has noted some epigastric discomfort during coughing episodes but denies any discomfort at rest. The patient and his explain that the patient's membrane bandages on the chronic wounds of the BL lower extremities and left hand are not to be removed until 09/05 at his next clinic appointment. They have been changing the outer bandages daily as recommended. He is a DNR/DNI and his is his POA if he cannot make decisions himself. Please refer to Dr. Palencia's attestation for any changes to the treatment plan Allergies Allergy/AdvReac Type Severity Reaction Status Date / Time cephalexin [From Keflex] Allergy Hives Verified 08/30/23 08:58 Home Medications Medication Instructions Recorded Confirmed Type Oxygen Home #2 L 10/14/21 09/04/23 Rx metoprolol succinate 25 mg 12.5 mg (1/2 x 25 mg) PO QAM #45 09/26/22 09/04/23 Rx tablet,extended release 24 hr tabs budesonide-formoterol HFA 160 2 puff inhalation BID #3 Inhalers 09/27/22 09/04/23 Rx mcg-4.5 mcg/actuation aerosol inhaler (Symbicort) tiotropium bromide 2.5 2 puff inhalation QAM #3 Inhalers 10/05/22 09/04/23 Rx mcg/actuation mist for inhalation (Spiriva Respimat) albuterol sulfate 90 mcg/actuation 2 puff inhalation QID PRN 02/07/23 09/04/23 Rx aerosol inhaler (Ventolin HFA) shortness of breath or wheezing #18 grams atorvastatin 20 mg tablet 20 mg PO HS #90 tabs 03/08/23 09/04/23 Rx omeprazole 20 mg capsule,delayed 20 mg PO QAM 04/29/23 09/04/23 History release apixaban 5 mg tablet (Eliquis) 5 mg PO BID #180 tabs 07/12/23 09/04/23 Rx furosemide 40 mg tablet 40 mg PO QAM weight gain 07/25/23 09/04/23 History magnesium chloride 64 mg 400 mg PO QAM 08/08/23 09/04/23 History (magnesium chloride) tablet,delayed release (Mag 64) doxycycline hyclate 100 mg tablet 100 mg PO BID 14 days #28 tabs 08/25/23 09/04/23 Rx dutasteride 0.5 mg capsule 0.5 mg PO QAM 09/04/23 09/04/23 History snuqrugc-mv-xiqlm 300 mcg-K 60 1 tab PO QAM 09/04/23 09/04/23 History mcg-lycop 600 mcg-lutein 300 mcg tablet (Centrum Silver Men) Past Med/Surg History Problem List (Updated 09/04/23 @ 17:07 by Angel Szymanski PA-C) SOB (shortness of breath) Lactate blood increased Choking episode Chronic wound Acute exacerbation of congestive heart failure (Acute) Aspiration pneumonia (Acute) Traumatic wound (Acute) Toe ulcer, right (Acute) Ulcer of toe of left foot (Acute) Urinary retention Nonischemic cardiomyopathy CAD (coronary artery disease) Nonobstructive per 03/2015 cardiac cath per cardio records Right heart failure Hypomagnesemia (Acute) Acute kidney injury (Acute) Pressure ulcer Anemia Chronic hypoxemic respiratory failure Acute respiratory failure with hypoxia Elevated brain natriuretic peptide (BNP) level (Acute) Bradycardia Hx of amputation of lesser toe (~07/2022) Osteomyelitis Hypertension (Chronic) History of heart valve replacement MITRAL VALVE REPLACED (YOSVANY) Chronic systolic (congestive) heart failure (Acute) Atrial fibrillation (Acute) Anticoagulant long-term use (Acute) Arteriosclerotic coronary artery disease (Acute) PAD (peripheral artery disease) (Chronic) Hyperlipidemia Chronic obstructive pulmonary disease 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 (Acute) Acid reflux (Acute) Pulmonary hypertension assoc with unclear multi-factorial mechanisms Retinal vein occlusion Pre-diabetes Cirrhosis Medical History Hematuria Low blood pressure reading Hypoxia Right lower lobe pneumonia 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 Recommend 1 year follow up. Heart failure with mid-range ejection fraction History of tobacco use Diverticulosis SNHL (sensorineural hearing loss) Seasonal allergies Tinnitus GERD (gastroesophageal reflux disease) Atrial fibrillation Hypertension Surgical History H/O mitral valve replacement 2015 Status post Mohs surgery left cheek, left arm (squamous cell) Status post anal fissurectomy History of colonoscopy History of tooth extraction History of tonsillectomy History of cardiac radiofrequency ablation History of cardiac cath 03/2015 > no stents Family History Father Family hx colonic polyps Mother Heart disease Other Hypertension No family history of adverse response to anesthesia Social History Smoking Status: Former smoker Tobacco Type: Cigarettes Age Started Using Tobacco: 17; Age Quit Using Tobacco: 62; packs per day: 2; Cigarettes Per Day: 2 packs; Second Hand Exposure: No; Do You Dip or Chew Tobacco: No; Hx Alcohol Use: Yes Alcohol type: beer Alcohol Intake Frequency: 2-3 x/Week Hx Substance Use: No Preferred Language: Singaporean Communication Ability: Effective Visual Impairment: Limited Hearing Ability: Normal Forming Department Supervisor Required: No Beliefs That Will Affect Care: None marital status: Current Living Situation: Spouse Current Living Situation Comment: Home with current occupational status: retired How many Children do You have: 4 How many Children do You have Comment: One child is local and involved with care. Others are in [place]. Also has a brother and that can assist with care Feels Safe at Home: Yes Childhood Exposure to Second-Hand Smoke: Yes Diet: regular Diet Comment: Educated to increase protein, vitamin c d and zinc caffeine: Yes during the past year weight has: decreased > 10 lbs Dental Care, Regularly: Yes Physical Activity Frequency: 1-2 Times per Week Physical Activity Frequency Comment: walks Seatbelt Use: always Sunscreen Use: Yes Do you think of yourself as: straight/heterosexual Assistive Devices: Walker Physical Exam Physical Exam: Physical Exam: General: In no acute distress, stated age, chronically ill appearing but non- toxic HEENT: Normocephalic, atraumatic, no scleral icterus, pupils around round, symmetrical, and reactive to light, moist mucus membranes, mild JVD, trachea midline, no thyromegaly Chest/Pulm: No respiratory distress, symmetrical chest expansion, decreased breath sounds in the BL lower lung ibarra with crackles noted in the BL mid and upper lung ibarra Cardiac: irregular rate and rhythm, no murmurs noted Abdomen: Negative for ascites and bruising, normoactive bowel sounds, soft, non-tender to palpation throughout Musculoskeletal: Symmetrical and without signs of acute trauma, upper and lower extremities with full ROM, no atrophy, spasticity, or flaccidity Extremities: Radial, dorsalis pedis, and posterior tibial pulses are intact and symmetrical, 1+ pitting edema noted under the BL LE wraps Skin: Patient with chronic wounds on the BL right and left great toes, wounds were examined down to the membrane bandages, the patient is without signs of infection/tracking proximally, no sings of cellulitis r new infections on the BL feet and legs, >Patient with chronic wound on the dorsum of the left hand without signs of erythema, tracking, or drainage Neuro: Alert and oriented to person, place, month, year, and president, no focal defects, no tremors noted Psych: No acute distress, calm and cooperative during the exam Results & Data Results & Data Vital Signs (Past 12 Hours) Vital Signs Temp Pulse Resp BP BP Pulse Ox O2 Del Method 09/04/23 15:52 24 133/88 95 Nasal Cannula 09/04/23 14:19 92 H 09/04/23 14:14 95 Nasal Cannula 09/04/23 14:14 24 97 Nasal Cannula 09/04/23 14:14 89 L Nasal Cannula 09/04/23 14:14 Nasal Cannula 09/04/23 14:14 36.8 C 96 H 24 133/88 Nasal Cannula O2 Flow Rate 09/04/23 15:52 2 09/04/23 14:19 09/04/23 14:14 2 09/04/23 14:14 3 09/04/23 14:14 2 09/04/23 14:14 3 09/04/23 14:14 2 Laboratory Results Abnormal lab results 09/04/23 Range/Units 14:54 RBC 3.93 L (4.70-6.10) M/uL Hgb 11.0 L (14.0-18.0) g/dl Hct 36.0 L (42.0-52.0) % MCHC 30.6 L (32.0-36.0) g/dL RDW Std Deviation 52.2 H (36.4-46.3) fL RDW Coeff of [place] 15.9 H (11.5-14.5) % Lymph # (Auto) 1.16 L (1.20-3.40) K/uL [place] # (Auto) 0.92 H (0.11-0.59) K/uL PT 15.4 H (9.0-12.0) Seconds INR 1.5 H (0.9-1.1) APTT 34 H (21-31) Seconds VBG pCO2 63 H (38-50) mmHg BUN 28 H (6-23) mg/dl BUN/Creatinine Ratio 31.1 H (10-20) Lactate 2.9 H* (0.4-2.0) mmol/L Troponin I High Sens 38.9 H (0-20) pg/ml B-Natriuretic Peptide 1627 H (0-100) pg/ml Lipase 9 L (11-82) U/L Diagnostic Findings Chest X-Ray 09/04/23 14:04 XR chest 1V portable CLINICAL HISTORY: Chest pain, nonspecific COMPARISON STUDY: Chest CT April 30, 2023. Chest radiograph October 08, 2023. FINDINGS: Skin folds project over the left chest. There is no pneumothorax. Small bilateral pleural effusions are present with bibasilar opacities, greater on the left. Interstitial thickening is noted. Cardiomegaly is unchanged. Mitral valve prosthesis is in place. Mediastinal contours are stable. IMPRESSION: 1. Cardiomegaly with interstitial pulmonary edema and small bilateral pleural effusions. 2. Bibasilar opacities, greater on the left. The findings could reflect pneumonia or atelectasis. Radiographic follow-up to ensure resolution is recommended. ACT 112: Negative or not required by law. Electronically signed by: Osbaldo Milner M.D. 09/04/2023 2:37 PM ECG Additional Comments: Atrial fibrillation with rapid ventricular response with premature ventricular or aberrantly conducted complexes Right bundle branch block T wave abnormality, consider inferolateral ischemia Abnormal ECG When compared with ECG of 29-APR-2023 17:27, Right bundle branch block has replaced Non-specific intra- ventricular conduction delay Code Status & VTE Plan Code Status DNR/DNI VTE Prophylaxis Plan VTE Prophylaxis will be ordered: Yes Supervising Physician Co-Signing Physician Notes Patient seen and examined, chart reviewed, case discussed with Angel Szymanski PA-C and I agree with the assessment and plan as above except as otherwise noted Labs and images reviewed Gil is an 83-year-old male with a PMHx of CHF, cor pulmonale, A-fib on anticoagulation, PAD, BPH with LUTS, COPD, anemia, Chronic left toe ulceration for which he follows with wound care and for which x-ray 07/17/2023 was negative for osteomyelitis who presents with shortness of breath, dyspnea, and difficulty swallowing doxycycline pills which he was prescribed at the wound clinic. He was found to have evidence of overt volume overload and? Superimposed pneumonia on ER workup Has been takin doxycycline from wound clinic for his toe wound. Had difficulty swallowing pills, had a ?aspiration event. increased shortness of breath from baseline since, is on 2L O2 at baseline. Lactate 2.9 with liver disease. Pt appears volume overloaded clinically, fluids are deferred due to volume overload. WBC elevated. Cough and suspected acute on chronic CHF with interstitial pulmonary edema and small effusions with possible superimposed pneumonia with left greater than right opacities. Patient has a hx CHF and cor pulmonale. Has a history of Pseudomonas on prior cultures sensitive to Zosyn and cephalosporins. Lactate was elevated on admission in the setting of liver disease. BNP is significantly elevated at 1627, baseline appears to be around . Patient is recommended for IV antibiotic treatment with cultures pending, and diuresis for acute CHF with history of cor pulmonale. Agree with Lasix which has been ordered by ER. Patient has received Zosyn, will continue this and obtain MRSA nare. If positive switch to cefepime/vancomycin. Procalcitonin pending. Quad screen is negative. Agree with above PG Care Time/CCT Total # of Minutes Spent Total Time Spent with Patient: Total time spent is greater than 50% in coordination of care (as documented) at patient's floor/unit and/or counseling patient: Coding [place] [address] INT INP/OBS CARE 3/75MIN Patient Type Established History Comprehensive Exam Comprehensive Medical Decision Making High Complexity Diagnoses SOB (shortness of breath) R06.02 Acute exacerbation of congestive heart failure I50.9 Heart failure type: unspecified Aspiration pneumonia J69.0 Aspiration pneumonia type: unspecified Laterality: unspecified laterality Lung location: unspecified part of lung Lactate blood increased R79.89 Elevated troponin R77.8 Chronic wound T14.8XXA Chronic hypoxemic respiratory failure J96.11 Hypertension I10 Permanent atrial fibrillation I48.21 Atrial fibrillation type: permanent (2) Acute exacerbation of congestive heart failure Heart failure type: unspecified Qualified Code(s): I50.9 - Heart failure, unspecified (3) Aspiration pneumonia Aspiration pneumonia type: unspecified Laterality: unspecified laterality Lung location: unspecified part of lung Qualified Code(s): J69.0 - Pneumonitis due to inhalation of food and vomit (9) Atrial fibrillation Atrial fibrillation type: permanent Qualified Code(s): I48.21 - Permanent atrial fibrillation
[2023-09-04] MEDS: FUROSEMIDE INJ 20 MG/2 ML VIAL IV ONE (17:23)
[2023-09-04] MEDS: PANTOprazole 40 MG in SYRINGE 0 ML IV ONE (17:41)
[2023-09-04] MEDS: PANTOprazole 40 MG TAB PO STA (18:30)
[2023-09-04] MEDS ORDERED: ALBUTEROL HFA 8 GM INHALER INH PRN (19:37)
[2023-09-04] MEDS ORDERED: DOXYCYCLINE HYCLATE 100 MG in DEXTROSE 5% MINI-B 100 ML IV SCH (21:00)
[2023-09-04] MEDS: FLUTICASONE/VILANTEROL 200/25MCG 14 PUFFS/INHALER INH SCH (21:03)
[2023-09-04] MEDS: APIXABAN 5 MG TABLET PO SCH (21:03)
[2023-09-05 06:43] LABS: Basophils # (auto) 0.04 K/uL (0.00-0.20); Basophils % (auto) 0.7 %; Eosinophils # (auto) 0.13 K/uL (0.00-0.50); Eosinophils % (auto) 2.4 %; Hematocrit (blood only) 31.4 % (42.0-52.0); Hemoglobin 9.5 g/dl (14.0-18.0); Immature Granulocytes # (auto) 0.02 K/uL (0.01-0.20); Immature Granulocytes % (auto) 0.4 %; Lymphocytes % (auto) 14.7 %; Mean Corpuscular Hemoglobin 27.4 pg (25.0-34.0); Mean Corpuscular Hgb Conc 30.3 g/dL (32.0-36.0); Mean Corpuscular Volume 90.5 fL (80.0-100.0); Mean Platelet Volume 12.6 fL (9.4-12.4); Monocytes # (auto) 0.74 K/uL (0.11-0.59); Monocytes % (auto) 13.6 %; Neutrophils # (auto) 3.71 K/uL (1.40-6.50); Neutrophils % (auto) 68.2 %; Platelet Count 145 K/uL (130-400); RDW Coefficient of Variation 15.9 % (11.5-14.5); RDW Standard Deviation 51.1 fL (36.4-46.3); Red Blood Count 3.47 M/uL (4.70-6.10); White Blood Count 5.44 K/ul (4.8-10.8)
[2023-09-05 07:09] LABS: Albumin Globulin Ratio 1.5 (0.9-2); Albumin Level 3.3 gm/dl (3.4-5.0); BUN Creatinine Ratio 30.1 (10-20); Bilirubin,Total 1.1 mg/dl (0.2-1.0); Calcium 8.5 mg/dl (8.6-10.3); Est GFR (African American) 95.6 ml/min; Est GFR (Non-African American) 82.5 ml/min; Globulin 2.2 gm/dl (2.5-4.0); Magnesium 1.6 mg/dl (1.7-2.4); Potassium 3.9 mmol/L (3.5-5.1); Total Protein 5.5 gm/dl (6.0-8.3)
[2023-09-05 07:21] LABS: INR 1.5 (0.9-1.1); Prothrombin Time 15.8 Seconds (9.0-12.0)
[2023-09-05] MEDS: UMECLIDINIUM BROMIDE 62.5MCG/BLISTER 7 PUFFS/INHALER INH SCH (07:53)
[2023-09-05] MEDS: FINASTERIDE 5 MG TAB PO SCH (07:59)
[2023-09-05] MEDS: METOPROLOL SUCC 25MG EXT REL TAB PO SCH (07:59)
--- NOTE | 2023-09-05 08:03 | Hospitalist Progress Note ---
Date of Service September 05, 2023 Assessment & Plan (1) SOB (shortness of breath): Plan: Presented to the ED today for progressive SOB, loss of appetite, and productive cough since experiencing a chocking event the evening of 09/01/23 No leukocytosis, procal wnl. Suspect multifactorial: acute on chronic CHF exacerbation, aspiration pneumonia (as well as progression of dysphagia per patient) CXR w/ cardiomegaly with interstitial pulmonary edema, small BL pleural effusi ons, and bibasilar opacities Given lasix 20mg IV x 1, Zosyn IV in ER Incentive spirometer Eliquis BID continued for DVT proph 09/04 Acute on chronic CHF exacerbation +/- aspiration pneumonia. Prior ECHO w/ improvement/normalization in EF Repeat limited ECHO obtained for today, mild decline in LV systolic function, right heart impairment and pulm HTN now more severe, EF reduced mildly to 40-45% Wt69.9kg, ~66-67kg at baseline. Hospitalized in April for hypotension/AMS/YANIRA and had been on Entresto/spironolactone with lasix prn - Daily weights to be obtained by nursing - Low salt, AHA diet, 1800cc/fluid restriction Provided 20mg IV lasix on admission, ordered 40mg IV BID for now --> afternoon eval w/ not significant overload, --> Weights obtained this afternoon, 69.9kg--> 66.3kg will hold PM dose of lasix for now/eval in AM and possible resume at lower dose in AM if significant weight gain/volume overload Continue Zosyn- resumed as to have been ordered on admission. -MRSA nares NEGATIVE - Sputum cx if able to produce Went to video swallow this morning, significant findings. Had some dysphagia since taking the doxy but has had ongoing issues. Discussed since encompass he had been doing pretty good with walker/getting around but agrees not eating for 3 days at a time and worried the end is nearing. He did have good quality of life prior and would like to consider PEG tube/feeding tube for nutritional support and will consult GI. He would like his to be present for conversation. They have been for 63 years. Will consult GI first, then likely benefit from palliative for further delineation of goals of care pending outcome of discussion. Titrate O2 as able Consideration for palliative care (2) Acute exacerbation of congestive heart failure: Plan: -See SOB, given 40mg IV lasix for this morning, monitor for repeat dosing in AM but will hold PM dose given copious output/monitor weights ECHO w/ lower EF today on repeat --> CHF clinic consulted //will discuss (3) Aspiration pneumonia: Plan: -See SOB., continue Zosyn for now (MRSA nares negative) Lasix x 1, aspiration precautions Speech eval as above, GI consult for consideration for PEG (4) Lactate blood increased: Plan: Initial lactate elevated at 2.9 -Patient appears non-toxic and has been hemodynamically stable -Could be elevated due to poor perfusion due to decreased cardiac output and decreased clearance from his known cirrhosis -Continue current treatment plan as per SOB and chronic wound plan -Can give small IV fluid boluses if needed during admission of note, does have PAD/following wound center (why he was on Doxy to begin with) On Zosyn as above for aspiration (5) Elevated troponin: Plan: Initial high sen trop elevated at 38, 2 hour repeat is in process Patient denies chest pain -No acute ST segment or T-wave changes on ECG -Likely due to demand from CHF exacerbation -Will follow repeat high sen trop, if still significantly increasing will continue to trend and obtain TTE tomorrow (will check limited ECHO to eval EF now off entresto/spironolactone since earlier this year) -- SEE ABOVE, worse, lasix as above but will touch base w/ CHF clinic. ?restarting diuretic. Difficulty given his decreased ability for PO intake -Continue to monitor on tele (6) Chronic wound: Plan: -Follows with the wound care clinic for wounds on the BL great toes and dorsum of the left hand -Wounds appear stable today, no signs of progressive since he stopped doxycycline on 08/31 -Will continue Zosyn for now to cover aspiration pneumonia and his chronic wounds, if MRSA swab is positive, will transition to Cefepime/vancomycin to cover aspiration pneumonia and his chronic wounds -Wound care nurse consult placed (7) Chronic hypoxemic respiratory failure: Plan: on 2L baseline, increased yellow sputum, likely from aspiration pneumonia as above Continue home breathing treatments Was up to 4L this morning, 3L since lasix and will titrate/monitor (8) Hypertension: Plan: Stable Continue to monitor BP while on IV diuresis Also,, was on midodrine in the past for BP support on diuresis -- monitor (9) Atrial fibrillation: Plan: Stable Continue metoprolol and Eliquis Plan continued inpatient stay, remains on abx for aspiration pneumonia monitor diuretic needs/dosing in AM GI consulted for possible PEG tube placement given video swallow, palliative consult for goals of care Admission and Anticipated Discharge Date Admission Date: September 04, 2023 Supervising Physician Co-Signing Physician Notes The patient was not seen by me. The chart was reviewed. Case discussed with CALVIN Borjas. Agree with assessment and plan Subjective Eval around lunch, sitting up in chair. Has had a cough occasionally, yellow sputum. On abx for aspiration pneumonia coverage. He typically has been on 2L NC bu was up to 4L this morning. Went to video swallow this morning, significant findings. Had some dysphagia since taking the doxy but has had ongoing issues. Given lasix this morning for volume overload, was up to 4L, currently 3L but appears dry on exam and will hold evening dose of lasix. RN to check weight. Discussed since [employer] he had been doing pretty good with walker/getting around but agrees not eating for 3 days at a time and worried the end is nearing. He did have good quality of life prior and would like to consider PEG tube/feeding tube for nutritional support and will consult GI. He would like his to be present for conversation. They have been for 63 years. Will consult GI first, then likely benefit from palliative for further delineation of goals of care pending outcome of discussion. Physical Exam Physical Exam: General: 83yo male, chronically ill appearing, sitting up in chair, NAD HEENT: head atraumatic, dry mmm, trachea midline, +secretion Resp: diminished in the bases with faint bibasilar crackles, no overt wheezing/rales, on 3L NC CV: irregularly irregular, rates 80s, +systolic murmur, 1+ b/l LE edema (wraps in place) GI: +BS, soft/slight distension but nontender, no guarding/rigidity MSK/Neuro: nonfocal, able to follow commands, no slurred speech/facial droop Psych: AOx3, cooperative with exam Skin: significant ecchymosis from lab draws/anticoagulation Results & Data Results & Data Vital Signs (Past 12 Hours) Vital Signs Temp Pulse Pulse Pulse Resp BP Pulse Ox 09/05/23 07:35 36.4 C L 83 16 136/90 93 09/05/23 07:00 81 09/05/23 03:00 36.4 C L 77 18 124/59 L 95 09/04/23 23:00 36.4 C L 75 18 115/73 99 O2 Del Method O2 Flow Rate 09/05/23 07:35 Nasal Cannula 2 09/05/23 07:00 09/05/23 03:00 Nasal Cannula 2 09/04/23 23:00 Nasal Cannula 2 Laboratory Results 09/05/23 09/04/23 09/04/23 Range/Units 06:16 16:56 16:25 WBC 5.44 (4.8-10.8) K/ul RBC 3.47 L (4.70-6.10) M/uL Hgb 9.5 L (14.0-18.0) g/dl Hct 31.4 L (42.0-52.0) % MCV 90.5 (80.0-100.0) fL MCH 27.4 (25.0-34.0) pg MCHC 30.3 L (32.0-36.0) g/dL RDW Std Deviation 51.1 H (36.4-46.3) fL RDW Coeff of Kamron 15.9 H (11.5-14.5) % Plt Count 145 (130-400) K/uL MPV 12.6 H (9.4-12.4) fL Immature Gran % (Auto) 0.4 % Neut % (Auto) 68.2 % Lymph % (Auto) 14.7 % Cecil % (Auto) 13.6 % Eos % (Auto) 2.4 % Baso % (Auto) 0.7 % Neut # (Auto) 3.71 (1.40-6.50) K/uL Lymph # (Auto) 0.80 L (1.20-3.40) K/uL Cecil # (Auto) 0.74 H (0.11-0.59) K/uL Eos # (Auto) 0.13 (0.00-0.50) K/uL Baso # (Auto) 0.04 (0.00-0.20) K/uL Immature Gran # (Auto) 0.02 (0.01-0.20) K/uL PT 15.8 H (9.0-12.0) Seconds INR 1.5 H (0.9-1.1) APTT (21-31) Seconds PTT Ratio VBG pH (7.36-7.41) VBG pCO2 (38-50) mmHg VBG pO2 mmHg VBG HCO3 mmol/L VBG O2 Saturation % VBG Base Excess mEq/L Sodium 144 (136-145) mmol/L Potassium 3.9 (3.5-5.1) mmol/L Chloride 101 (98-107) mmol/L Carbon Dioxide 34 H (21-32) mmol/L Anion Gap 9 (3-11) BUN 25 H (6-23) mg/dl Creatinine 0.83 (0.6-1.4) mg/dl Est Cr Clr Drug Dosing 69.0 ml/min Est GFR ( Amer) 95.6 ml/min Est GFR (Non-Af Amer) 82.5 ml/min BUN/Creatinine Ratio 30.1 H (10-20) Glucose 59 L (70-99(Fasting)) mg/dl Lactate 1.2 (0.4-2.0) mmol/L Calcium 8.5 L (8.6-10.3) mg/dl Magnesium 1.6 L (1.7-2.4) mg/dl Total Bilirubin 1.1 H (0.2-1.0) mg/dl AST 20 (13-39) U/L ALT 8 (7-52) U/L Alkaline Phosphatase 85 (34-104) U/L Troponin I High Sens 39.2 H (0-20) pg/ml B-Natriuretic Peptide (0-100) pg/ml Total Protein 5.5 L (6.0-8.3) gm/dl Albumin 3.3 L (3.4-5.0) gm/dl Globulin 2.2 L (2.5-4.0) gm/dl Albumin/Globulin Ratio 1.5 (0.9-2) Lipase (11-82) U/L Procalcitonin (0-0.5) ng/ml Nasal Screen MRSA (PCR) Negative (Negative) SARS-CoV-2 (PCR) (Negative) Influenza Type A (PCR) (Neg) Influenza Type B (PCR) (Neg) RSV (RT-PCR) (Neg) 09/04/23 09/04/23 Range/Units 14:54 14:51 WBC 8.67 (4.8-10.8) K/ul RBC 3.93 L (4.70-6.10) M/uL Hgb 11.0 L (14.0-18.0) g/dl Hct 36.0 L (42.0-52.0) % MCV 91.6 (80.0-100.0) fL MCH 28.0 (25.0-34.0) pg MCHC 30.6 L (32.0-36.0) g/dL RDW Std Deviation 52.2 H (36.4-46.3) fL RDW Coeff of Kamron 15.9 H (11.5-14.5) % Plt Count 168 (130-400) K/uL MPV 12.4 (9.4-12.4) fL Immature Gran % (Auto) 0.2 % Neut % (Auto) 73.9 % Lymph % (Auto) 13.4 % Cecil % (Auto) 10.6 % Eos % (Auto) 1.2 % Baso % (Auto) 0.7 % Neut # (Auto) 6.41 (1.40-6.50) K/uL Lymph # (Auto) 1.16 L (1.20-3.40) K/uL Cecil # (Auto) 0.92 H (0.11-0.59) K/uL Eos # (Auto) 0.10 (0.00-0.50) K/uL Baso # (Auto) 0.06 (0.00-0.20) K/uL Immature Gran # (Auto) 0.02 (0.01-0.20) K/uL PT 15.4 H (9.0-12.0) Seconds INR 1.5 H (0.9-1.1) APTT 34 H (21-31) Seconds PTT Ratio 1.3 VBG pH 7.36 (7.36-7.41) VBG pCO2 63 H (38-50) mmHg VBG pO2 < 20 mmHg VBG HCO3 36 mmol/L VBG O2 Saturation < 60.0 % VBG Base Excess 7.9 mEq/L Sodium 143 (136-145) mmol/L Potassium 4.5 (3.5-5.1) mmol/L Chloride 101 (98-107) mmol/L Carbon Dioxide 32 (21-32) mmol/L Anion Gap 10 (3-11) BUN 28 H (6-23) mg/dl Creatinine 0.90 (0.6-1.4) mg/dl Est Cr Clr Drug Dosing 63.6 ml/min Est GFR ( Amer) 92.5 ml/min Est GFR (Non-Af Amer) 79.8 ml/min BUN/Creatinine Ratio 31.1 H (10-20) Glucose 81 (70-99(Fasting)) mg/dl Lactate 2.9 H* (0.4-2.0) mmol/L Calcium 9.4 (8.6-10.3) mg/dl Magnesium 1.8 (1.7-2.4) mg/dl Total Bilirubin (0.2-1.0) mg/dl AST (13-39) U/L ALT (7-52) U/L Alkaline Phosphatase (34-104) U/L Troponin I High Sens 38.9 H (0-20) pg/ml B-Natriuretic Peptide 1627 H (0-100) pg/ml Total Protein (6.0-8.3) gm/dl Albumin (3.4-5.0) gm/dl Globulin (2.5-4.0) gm/dl Albumin/Globulin Ratio (0.9-2) Lipase 9 L (11-82) U/L Procalcitonin 0.05 (0-0.5) ng/ml Nasal Screen MRSA (PCR) (Negative) SARS-CoV-2 (PCR) NEGATIVE (Negative) Influenza Type A (PCR) Negative (Neg) Influenza Type B (PCR) Negative (Neg) RSV (RT-PCR) Negative (Neg) Diagnostic Findings Chest X-Ray 09/04/23 14:04 XR chest 1V portable CLINICAL HISTORY: Chest pain, nonspecific COMPARISON STUDY: Chest CT April 30, 2023. Chest radiograph October 08, 2023. FINDINGS: Skin folds project over the left chest. There is no pneumothorax. Small bilateral pleural effusions are present with bibasilar opacities, greater on the left. Interstitial thickening is noted. Cardiomegaly is unchanged. Mitral valve prosthesis is in place. Mediastinal contours are stable. IMPRESSION: 1. Cardiomegaly with interstitial pulmonary edema and small bilateral pleural effusions. 2. Bibasilar opacities, greater on the left. The findings could reflect pneumonia or atelectasis. Radiographic follow-up to ensure resolution is recommended. ACT 112: Negative or not required by law. Electronically signed by: Osbaldo Milner M.D. 09/04/2023 2:37 PM ECHOCARDIOGRAM 09/05/23 PG Care Time/CCT Total # of Minutes Spent Total Time Spent with Patient: Total time spent is greater than 50% in coordination of care (as documented) at patient's floor/unit and/or counseling patient: Coding Level of Care Code 07427 SUB INP/OBS CARE 350MIN Diagnoses SOB (shortness of breath) R06.02 Acute exacerbation of congestive heart failure I50.9 Heart failure type: unspecified Aspiration pneumonia J69.0 Aspiration pneumonia type: unspecified Laterality: unspecified laterality Lung location: unspecified part of lung Lactate blood increased R79.89 Elevated troponin R77.8 Chronic wound T14.8XXA Chronic hypoxemic respiratory failure J96.11 Hypertension I10 Permanent atrial fibrillation I48.21 Atrial fibrillation type: permanent (2) Acute exacerbation of congestive heart failure Heart failure type: unspecified Qualified Code(s): I50.9 - Heart failure, unspecified (3) Aspiration pneumonia Aspiration pneumonia type: unspecified Laterality: unspecified laterality Lung location: unspecified part of lung Qualified Code(s): J69.0 - Pneumonitis due to inhalation of food and vomit (9) Atrial fibrillation Atrial fibrillation type: permanent Qualified Code(s): I48.21 - Permanent atrial fibrillation
[2023-09-05] MEDS: MAGNESIUM SULFATE / D5W 1 GM/100 ML BAG IV SCH (08:11)
--- NOTE | 2023-09-05 08:20 | Electrocardiogram Report ---
Test Reason : Blood Pressure : / mmHG Vent. Rate : 109 BPM Atrial Rate : 000 BPM P-R Int : 000 ms QRS Dur : 136 ms QT Int : 326 ms P-R-T Axes : 000 086 -70 degrees QTc Int : 439 ms Atrial fibrillation with rapid ventricular response with premature ventricular or aberrantly conducte d complexes Right bundle branch block T-wave inversion in Anterior leads , consider ischemia Abnormal ECG When compared with ECG of 29-APR-2023 17:27, Right bundle branch block has replaced Non-specific intra-ventricular conduction delay T-wave inversion in Anterior leads now present Confirmed by Mango Rodrigez ([id number]) on 09/05/2023 8:19:50 AM Referred By: REFERRED SELF Confirmed By:Mango Rodrigez
[2023-09-05] MEDS: PIPER/TAZO 4.5g in D5W MINI-B 100 ML IV ONE (09:13)
[2023-09-05] MEDS: PANTOprazole 40 MG in SYRINGE 0 ML IV SCH (09:51)
[2023-09-05] MEDS: FUROSEMIDE 40 MG/4 ML VIAL IV SCH (09:51)
--- NOTE | 2023-09-05 11:35 | XCELERA ---
[id number]
[2023-09-05] MEDS ORDERED: DEXTROSE 10% 1,000 ML IV PRN (12:51)
--- NOTE | 2023-09-05 12:56 | Communication Note ---
Date of Service: September 05, 2023 GI was asked for a feeding tube for this patient due to dysphagia/aspiration concerns as assessed by FUNDRAISING SALE REPRESENTATIVE. Patient is currently hospitalized with an acute CHF exacerbation as well as active aspiration pneumonia. He is not presently a candidate for endoscopically placed feeding tube at present given these active medical issues. Can re-evaluate when resolved. Consider alternative nutrition plans in the interim and would advise palliative consult to discuss goals of care prior to any further plans.
[2023-09-05] MEDS: PIPERACILLIN/TAZOBACTAM 4.5 GM in DEXTROSE 5% MINI-B 100 ML IV SCH (16:37)
[2023-09-05] MEDS: SUCRALFATE 1 GM/10 ML UDC PO SCH (16:37)
--- NOTE | 2023-09-05 17:10 | Fluoroscopy Report ---
MODIFIED BARIUM SWALLOW CLINICAL HISTORY: r/o aspiration COMPARISON STUDY: Modified barium swallow May 26, 2023. FLUOROSCOPY TIME: 2.24 minutes. Ka, r: 6.03 mGy. TECHNIQUE: A modified barium swallow was performed in conjunction with Speech Pathology. The patient ingested varying consistencies of barium containing material. Video fluoroscopy was performed. FINDINGS: Penetration was noted with thin liquids via teaspoon. Several episodes of a small amount of silent tracheal aspiration were noted with sequential swallows of thin liquids via straw. Premature spillage was noted. Trace aspiration was noted with nectar thick liquids via cup. Swallow was nonfunc tional with pudding consistencies. Moderate residuals were noted with delayed initiation of the swall owing mechanism. Prolonged mastication with the eventual aspiration of residual was noted with cookie and pudding consistencies. IMPRESSION: 1. A small amount of tracheal aspiration with multiple consistencies, as described above. Delayed ini tiation of the swallowing mechanism with significant residuals with pudding and cookie and pudding co nsistencies with the eventual aspiration. 2. Full recommendations by Speech pathology to follow. ACT 112: Negative or not required by law. Electronically signed by: Osbaldo Milner M.D. 09/05/2023 5:09 PM
[2023-09-05] MEDS: POTASSIUM CHLORIDE CRTAB 20 MEQ TABCR PO STA (17:36)
[2023-09-06] MEDS ORDERED: TPN/PPN CONSULT PHARMACY PRN (05:00)
[2023-09-06 06:21] LABS: Albumin Globulin Ratio 1.5 (0.9-2); Albumin Level 3.4 gm/dl (3.4-5.0); BUN Creatinine Ratio 22.4 (10-20); Bilirubin,Total 1.2 mg/dl (0.2-1.0); Calcium 8.3 mg/dl (8.6-10.3); Creatinine Clr Calc Pharmacy 55.5 ml/min; Est GFR (African American) 83.5 ml/min; Globulin 2.3 gm/dl (2.5-4.0); Magnesium 1.9 mg/dl (1.7-2.4); Phosphorus 2.9 mg/dl (2.5-4.9); Potassium 3.5 mmol/L (3.5-5.1); Total Protein 5.7 gm/dl (6.0-8.3)
[2023-09-06 06:34] LABS: INR 1.4 (0.9-1.1); Prothrombin Time 15.2 Seconds (9.0-12.0)
[2023-09-06 06:35] LABS: Basophils # (auto) 0.05 K/uL (0.00-0.20); Basophils % (auto) 0.8 %; Eosinophils # (auto) 0.18 K/uL (0.00-0.50); Eosinophils % (auto) 2.8 %; Hematocrit (blood only) 33.7 % (42.0-52.0); Hemoglobin 10.5 g/dl (14.0-18.0); Immature Granulocytes # (auto) 0.01 K/uL (0.01-0.20); Immature Granulocytes % (auto) 0.2 %; Lymphocytes # (auto) 0.68 K/uL (1.20-3.40); Lymphocytes % (auto) 10.6 %; Mean Corpuscular Hemoglobin 27.6 pg (25.0-34.0); Mean Corpuscular Hgb Conc 31.2 g/dL (32.0-36.0); Mean Corpuscular Volume 88.7 fL (80.0-100.0); Mean Platelet Volume 12.7 fL (9.4-12.4); Monocytes # (auto) 0.81 K/uL (0.11-0.59); Monocytes % (auto) 12.6 %; Neutrophils # (auto) 4.68 K/uL (1.40-6.50); Platelet Count 153 K/uL (130-400); RDW Coefficient of Variation 15.9 % (11.5-14.5); RDW Standard Deviation 51.4 fL (36.4-46.3); White Blood Count 6.41 K/ul (4.8-10.8)
--- NOTE | 2023-09-06 07:23 | Hospitalist Progress Note ---
Date of Service September 06, 2023 Assessment & Plan (1) SOB (shortness of breath): Plan: Presented to the ED today for progressive SOB, loss of appetite, and productive cough since experiencing a chocking event the evening of 09/01/23 No leukocytosis, procal wnl. Suspect multifactorial- acute on chronic CHF exacerbation, aspiration pneumonia (as well as progression of dysphagia per patient) Acute on chronic CHF exacerbation BNP elevation to 1627, worse from prior Prior ECHO last admission w/ improvement/normalization in EF but had entresto/spironolactone/lasix held at dc at that time (was also on midodrine for BP support) CXR w/ cardiomegaly with interstitial pulmonary edema, small BL pleural effusions, and bibasilar opacities. Given lasix 20mg IV x 1, Zosyn IV in ER Repeat limited ECHO obtained 09/04, mild decline in LV systolic function, right heart impairment and pulm HTN now more severe, EF reduced mildly to 40-45% Given lasix 40mg IV x 1 on 09/04, held evening dosing as did NOT appear significantly volume overloaded on exam afternoon 09/04 and continues on HOLD Repeat weight 66.1kg/146lb this morning (baseline dry weight ~147lb) , acutally appears a little hypovolemic today Low salt/AHA diet, 1800cc/fluid restriction (will remove fluid restriction for now) Cards/CHF clinic consulted - agrees to hold diuretics at this time as well Titrated to baseline O2 today off additional diuretics Monitor volume status w/ starting nutrition to see about prn dosing if needed Pneumonia -- Aspiration vs Gram negative pneumonia Worsened dysphagia since Doxycycline use, speech consult placed Speech eval, video swallow 09/04 w/ significant findings/diet changed and tolerating. Aspiration precautions Continues on Zosyn IV. MRSA nares negative No leukocytosis, fevers. O2 titrated back to baseline (actually 1L this morning/baseline 2L) Sputum cx ordered --> NOW GROWING PSEUDOMONAS Aspiration precautions to be continued Consent for PICC line obtained today, discussed with patient and regarding risks of PEG/not preventing aspiration but good quality/functional quality previously and wanting to pursue once over acute illness. Plan to start TPN tomorrow -- monitor volume status/need for prn dosing based on weight GI consulted for possible PEG tube, also given dysphagia worsened since Doxy use/?pill esophagitis. I added empiric carafate and will continue for now Per GI, PEG tube placement will be deferred until over acute illness. PT/OT consulted- suspect will need acute inpatient rehab DVT proph: eliquis BID continued (2) Aspiration pneumonia: Plan: Suspected worsened dyphagia w/ baseline issues in setting of doxycycline use as above Speech consulted and video swallow 09/04 as below and aspiration precautions/GI consulted and will need outpt placement for feeding tube. Palliative consulted and seen today, understands risks and wants to pursue Diet presently with full liquid/low sodium for safety Continue Zosyn. Sputum cx now w/ Pseudomonas and covered by such. -- consider when able to switch to FLQ for coverage +/- Flagyl for anaerobic coverage but will continue IV for now given issues w/ PO/dysphagia (3) Acute exacerbation of congestive heart failure: Plan: See SOB, given 40mg IV lasix AM 09/04 w/ good response and actually appears euvolemic/slightly hypovolemic. ECHO w/ lowered EF as above and cardiology/CHF clinic consulted for ongoing assistance (seen by Dr Rodrigez today per patient) (4) Lactate blood increased: Plan: Initial lactate elevated at 2.9 -Patient appears non-toxic and has been hemodynamically stable -Could be elevated due to poor perfusion due to decreased cardiac output and decreased clearance from his known cirrhosis -Continue current treatment plan as per SOB and chronic wound plan -Can give small IV fluid boluses if needed during admission of note, does have PAD/following wound center (why he was on Doxy to begin with) On Zosyn as above for aspiration (5) Elevated troponin: Plan: Initial high sen trop elevated at 38, 2 hour repeat is in process Patient denies chest pain -No acute ST segment or T-wave changes on ECG -Likely due to demand ischemia from infection/CHF exacerbation ECHO as above, worsened EF off his diuetics/Entresto Continued telemetry monitoring (has been afib, rates 60-70s w/ PVCs today) (6) Chronic wound: Plan: Follows with the wound care clinic for wounds on the BL great toes and dorsum of the left hand Wounds appear stable today, no signs of progressive since he stopped doxycycline on 08/31 Will continue Zosyn for now to cover aspiration pneumonia and his chronic w ounds. MRSA swab negative Can switch to PO abx for pseudomonas on sputum cx as above but may need dual coverage for staph and will continue the Zosyn for now Wound care nurse consult placed (7) Chronic hypoxemic respiratory failure: Plan: on 2L baseline, increased yellow sputum, likely from aspiration pneumonia/pseudomonas pneumonia on sputum cx as above continue home treatments Lasix 40mg IV on 09/04 as above, titrated back to baseline O2 and will continue to monitor w/ volume status Monitor mag/K w/ afib (8) Hypertension: Plan: Stable - BP 104/63 No lightheaded/dizziness reported Also,, was on midodrine in the past for BP support on diuresis -- monitor (9) Atrial fibrillation: Plan: Stable Continue metoprolol and Eliquis monitor electrolytes/keep replete. did have 8beat run vtach afternoon 09/04, was asymptomatic and mag was low that AM and replacement ordered. No further events and patient was asymtpomatic at that time continued telemetry monitoring Plan continued inpatient stay plans to place PICC tomorrow and start TPN. Will need to touch base w/ CHF clinic regarding ongoing management of his heart failure. GI to get back to me about timing for f/u for feeding tube placement once over acute illness Admission and Anticipated Discharge Date Admission Date: September 04, 2023 Supervising Physician Co-Signing Physician Notes The patient was not seen by me. The chart was reviewed. Case discussed with CALVIN Borjas. Agree with assessment and plan Subjective Evaluated this afternoon, meeting with palliative to discuss goals of care/consideration for PEG tube placement. present in room. Had been quite functional/improving recently and prior to beginning of this year had been doing well at home and agrees he would like to trial this to see if able to improve nutrition. He is understanding of the continued risk w/ aspiration even with tube feeding but is unable to keep up with current needs. Tolerating adjustment in diet, passing gas but no bowel movement. Reports breathing improved/stable, on 1-2L NC and has brownish sputum but WBC wnl and afebrile and remains on Zosyn. Discussed PICC-line and consent obtained (initially was going to use midline however PICC line allowing for more calories w/ his fluid restriction) under direction of supervising provider and will plan to start PPN for tomorrow and discuss about arranging GI follow up once improved from infection for placement for PEG for ongoing needs but can use midline in meantime and able to keep in place longer than peripheral site. He reports being seen by Dr Rodrigez this morning and told "not to let them squeeze you too much" with regards to diuretics and discussed patient weight down below "dry weight" and no further diuretics ordered/given since dose yesterday morning however did discuss may need some diuretic depending on volume for PPN . Questions/concerns addressed at this time. Physical Exam Physical Exam: General: 83yo male, chronically ill appearing, laying in bed, at bedside, NAD HEENT: head atraumatic, dry mmm, trachea midline, no significant jugular venous distension Resp: diminished in the bases with faint bibasilar crackles, no overt wheezing/rales, on 1-2L NC CV: irregularly irregular, rates60- 80s, +systolic murmur, 1+ b/l LE edema (much improved compared to baseline) GI: +BS, soft/slight distension but nontender, no guarding/rigidity MSK/Neuro: nonfocal, able to follow commands, no slurred speech/facial droop Psych: AOx3, cooperative with exam Skin: significant ecchymosis from lab draws/anticoagulation Results & Data Results & Data Vital Signs (Past 12 Hours) Vital Signs Temp Pulse Resp BP Pulse Ox O2 Del Method O2 Flow Rate 09/06/23 04:14 36.6 C 78 20 101/65 100 Nasal Cannula 2 09/05/23 23:38 36.5 C 57 L 18 103/68 92 Nasal Cannula 2 09/05/23 20:00 Nasal Cannula 2 09/05/23 19:49 36.6 C 74 20 110/71 95 Nasal Cannula 2 Laboratory Results 09/06/23 09/06/23 Range/Units 13:40 05:31 WBC 6.41 (4.8-10.8) K/ul RBC 3.80 L (4.70-6.10) M/uL Hgb 10.5 L (14.0-18.0) g/dl Hct 33.7 L (42.0-52.0) % MCV 88.7 (80.0-100.0) fL MCH 27.6 (25.0-34.0) pg MCHC 31.2 L (32.0-36.0) g/dL RDW Std Deviation 51.4 H (36.4-46.3) fL RDW Coeff of [place] 15.9 H (11.5-14.5) % Plt Count 153 (130-400) K/uL MPV 12.7 H (9.4-12.4) fL Immature Gran % (Auto) 0.2 % Neut % (Auto) 73.0 % Lymph % (Auto) 10.6 % [place] % (Auto) 12.6 % Eos % (Auto) 2.8 % Baso % (Auto) 0.8 % Neut # (Auto) 4.68 (1.40-6.50) K/uL Lymph # (Auto) 0.68 L (1.20-3.40) K/uL [place] # (Auto) 0.81 H (0.11-0.59) K/uL Eos # (Auto) 0.18 (0.00-0.50) K/uL Baso # (Auto) 0.05 (0.00-0.20) K/uL Immature Gran # (Auto) 0.01 (0.01-0.20) K/uL PT 15.2 H (9.0-12.0) Seconds INR 1.4 H (0.9-1.1) Sodium 141 (136-145) mmol/L Potassium 3.5 (3.5-5.1) mmol/L Chloride 100 (98-107) mmol/L Carbon Dioxide 35 H (21-32) mmol/L Anion Gap 6 (3-11) BUN 22 (6-23) mg/dl Creatinine 0.98 (0.6-1.4) mg/dl Est Cr Clr Drug Dosing 55.5 ml/min Est GFR ( Amer) 83.5 ml/min Est GFR (Non-Af Amer) 72.0 ml/min BUN/Creatinine Ratio 22.4 H (10-20) Glucose 94 (70-99(Fasting)) mg/dl POC Glucose 93 (70-99) mg/dl Calcium 8.3 L (8.6-10.3) mg/dl Phosphorus 2.9 (2.5-4.9) mg/dl Magnesium 1.9 (1.7-2.4) mg/dl Total Bilirubin 1.2 H (0.2-1.0) mg/dl AST 23 (13-39) U/L ALT 9 (7-52) U/L Alkaline Phosphatase 87 (34-104) U/L Total Protein 5.7 L (6.0-8.3) gm/dl Albumin 3.4 (3.4-5.0) gm/dl Globulin 2.3 L (2.5-4.0) gm/dl Albumin/Globulin Ratio 1.5 (0.9-2) Triglycerides 73 (0-150) mg/dl Diagnostic Findings Videofluoroscopic Swallow 09/05/23 11:00 MODIFIED BARIUM SWALLOW CLINICAL HISTORY: r/o aspiration COMPARISON STUDY: Modified barium swallow May 26, 2023. FLUOROSCOPY TIME: 2.24 minutes. Ka, r: 6.03 mGy. TECHNIQUE: A modified barium swallow was performed in conjunction with Speech Pathology. The patient ingested varying consistencies of barium containing material. Video fluoroscopy was performed. FINDINGS: Penetration was noted with thin liquids via teaspoon. Several episodes of a small amount of silent tracheal aspiration were noted with sequential swallows of thin liquids via straw. Premature spillage was noted. Trace aspiration was noted with nectar thick liquids via cup. Swallow was nonfunctional with pudding consistencies. Moderate residuals were noted with delayed initiation of the swallowing mechanism. Prolonged mastication with the eventual aspiration of residual was noted with cookie and pudding consistencies. IMPRESSION: 1. A small amount of tracheal aspiration with multiple consistencies, as described above. Delayed initiation of the swallowing mechanism with significant residuals with pudding and cookie and pudding consistencies with the eventual as piration. 2. Full recommendations by Speech pathology to follow. ACT 112: Negative or not required by law. Electronically signed by: Osbaldo Milner M.D. 09/05/2023 5:09 PM Chest X-Ray 09/06/23 07:00 XR chest 1V portable CLINICAL HISTORY: follow up CHF/aspiration PNA TECHNIQUE: Single frontal radiograph of the chest was obtained. Comparison: Comparison is made to chest radiograph 09/04/2023 FINDINGS: No lines and tubes are seen. Cardiomegaly is noted. The aortic arch is calcified. Bilateral lower lung predominant airspace opacities are seen. Interstitial thickening and prominent pulmonary vasculature is seen. Small bilateral pleural effusions are seen. IMPRESSION: 1. Cardiomegaly and moderate pulmonary edema. 2. Airspace opacities in the bilateral lower lungs likely represent atelectasis, pneumonia, and/or alveolar edema. ACT 112: Negative or not required by law. Electronically signed by: Darion Lee M.D. 09/06/2023 2:18 PM Liver Ultrasound 09/06/23 09:32 US liver CLINICAL HISTORY: cirrhosis TECHNIQUE: Multiple real-time sonographic images of the right upper quadrant were obtained. Comparison: Comparison is made to liver ultrasound 11/21/2022 FINDINGS: The liver is diffusely coarsened in echotexture, with a nodular contour. The liver appears shrunken in appearance. These findings are suggestive of cirrhosis. No focal mass lesions are seen. No intrahepatic ductal dilatation is seen. No gallstones or sludge are identified within the gallbladder. The gallbladder wall is not thickened. There is no pericholecystic fluid present. A sonographic Morrow's sign was not elicited by the sales agent food vending service. The common duct measures 0.3 cm in diameter at the level of the hepatic artery. The visualized portions of the pancreas appear normal. The right kidney shows normal echogenicity, cortical thickness and renal contour. The right kidney shows no evidence of hydronephrosis or mass. No ascites or free fluid is seen in Rg's pouch. IMPRESSION: Nodular contour of the liver compatible with cirrhosis. No underlying hepatic mass is seen. ACT 112: Negative or not required by law. Electronically signed by: Darion Lee M.D. 09/06/2023 2:20 PM PG Care Time/CCT Total # of Minutes Spent Total Time Spent with Patient: Total time spent is greater than 50% in coordination of care (as documented) at patient's floor/unit and/or counseling patient: Coding Level of Care Code 84532 SUB INP/OBS CARE 3/50MIN Diagnoses SOB (shortness of breath) R06.02 Aspiration pneumonia J69.0 Aspiration pneumonia type: unspecified Laterality: unspecified laterality Lung location: unspecified part of lung Acute exacerbation of congestive heart failure I50.9 Heart failure type: unspecified Lactate blood increased R79.89 Elevated troponin R77.8 Chronic wound T14.8XXA Chronic hypoxemic respiratory failure J96.11 Hypertension I10 Permanent atrial fibrillation I48.21 Atrial fibrillation type: permanent (2) Aspiration pneumonia Aspiration pneumonia type: unspecified Laterality: unspecified laterality Lung location: unspecified part of lung Qualified Code(s): J69.0 - Pneumonitis due to inhalation of food and vomit (3) Acute exacerbation of congestive heart failure Heart failure type: unspecified Qualified Code(s): I50.9 - Heart failure, unspecified (9) Atrial fibrillation Atrial fibrillation type: permanent Qualified Code(s): I48.21 - Permanent atrial fibrillation
[2023-09-06] MEDS: POTASSIUM CHLORIDE 20 MEQ/15 ML UDC PO STA (08:19)
[2023-09-06] MEDS ORDERED: ONDANSETRON INJ 2 MG/ML 2 ML VIAL IV PRN (09:28)
--- NOTE | 2023-09-06 12:04 | Gastrointestinal Consultation ---
Date of Consultation September 06, 2023 Assessment & Plan (1) Oropharyngeal dysphagia: Unclear etiology (Previous stroke vs neurologic issues?). Does not appear patient has had neuro w/u previously. Dysphagia first evaluated with [facility] in May 2023. Discussed PEG tube placement with patient and emphasized that the reason for placement is due to his aspiration and a PEG tube does not reduce the risk of aspiration. Discussed risks of feeding tubes particularly in patients >75 years of age. He should proceed with palliative care conversation to discuss goals of care and weigh pleasure feeding vs feeding tube placement with the understanding that it will not mitigate the risk of aspiration. Discussed with patient that he is not currently a candidate for PEG placement given acute pneumonia & CHF exacerbation. Could re-evaluate at a later time. Note that these clinical recommendations have been discussed at length with Dr. Carrasquillo. Supervising Physician Co-Signing Physician Notes Agree with GUS Dooley as above Interviewed and examined patient and agree with above Abd: Soft, NT, ND, +BS Continue current therapy and supportive care Will consider PEG tube as outpatient when he improves from acute illness History of Present Illness Reason for Consultation: Dysphagia Attending Physician: Dmitri Jennings MD History of Present Illness Patient is an 83 yo male with severe oropharyngeal dysphagia, acute aspiration pneumonia, & acute CHF exacerbation. Patient has a history of liver cirrhosis per his reports (and per imaging). GI has been asked to place a PEG tube for nutritional needs after [facility] evaluation & video swallow. BNP >1600 at present. Patient is on Zosyn for aspiration pneumonia. Patient denies history of stroke or vocal cord damage. He denies radiation to the head/neck. Allergies Allergy/AdvReac Type Severity Reaction Status Date / Time cephalexin [From Keflex] Allergy Hives Verified 08/30/23 08:58 Home Medications Medication Instructions Recorded Confirmed Type Oxygen Home #2 L 10/14/21 09/04/23 Rx metoprolol succinate 25 mg 12.5 mg (1/2 x 25 mg) PO QAM #45 09/26/22 09/04/23 Rx tablet,extended release 24 hr tabs budesonide-formoterol HFA 160 2 puff inhalation BID #3 Inhalers 09/27/22 09/04/23 Rx mcg-4.5 mcg/actuation aerosol inhaler (Symbicort) tiotropium bromide 2.5 2 puff inhalation QAM #3 Inhalers 10/05/22 09/04/23 Rx mcg/actuation mist for inhalation (Spiriva Respimat) albuterol sulfate 90 mcg/actuation 2 puff inhalation QID PRN 02/07/23 09/04/23 Rx aerosol inhaler (Ventolin HFA) shortness of breath or wheezing #18 grams atorvastatin 20 mg tablet 20 mg PO HS #90 tabs 03/08/23 09/04/23 Rx omeprazole 20 mg capsule,delayed 20 mg PO QAM 04/29/23 09/04/23 History release apixaban 5 mg tablet (Eliquis) 5 mg PO BID #180 tabs 07/12/23 09/04/23 Rx furosemide 40 mg tablet 40 mg PO QAM weight gain 07/25/23 09/04/23 History magnesium chloride 64 mg 400 mg PO QAM 08/08/23 09/04/23 History (magnesium chloride) tablet,delayed release (Mag 64) doxycycline hyclate 100 mg tablet 100 mg PO BID 14 days #28 tabs 08/25/23 09/04/23 Rx dutasteride 0.5 mg capsule 0.5 mg PO QAM 09/04/23 09/04/23 History oksgpsfz-[id number]-mzedf 300 mcg-K 60 1 tab PO QAM 09/04/23 09/04/23 History mcg-lycop 600 mcg-lutein 300 mcg tablet (Centrum Silver Men) Patient History Medical History Hematuria Low blood pressure reading Hypoxia Right lower lobe pneumonia 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 Recommend 1 year follow up. Heart failure with mid-range ejection fraction History of tobacco use Diverticulosis SNHL (sensorineural hearing loss) Seasonal allergies Tinnitus GERD (gastroesophageal reflux disease) Atrial fibrillation Hypertension Surgical History H/O mitral valve replacement 2016 Status post Mohs surgery left cheek, left arm (squamous cell) Status post anal fissurectomy History of colonoscopy History of tooth extraction History of tonsillectomy History of cardiac radiofrequency ablation History of cardiac cath 03/2015 > no stents Family History Father Family hx colonic polyps Mother Heart disease Other Hypertension No family history of adverse response to anesthesia Social History Smoking Status: Former smoker Tobacco Type: Cigarettes Age Started Using Tobacco: 17; Age Quit Using Tobacco: 62; packs per day: 2; Cigarettes Per Day: 2 packs; Second Hand Exposure: No; Do You Dip or Chew Tobacco: No; Hx Alcohol Use: No Hx Substance Use: No Preferred Language: German Communication Ability: Effective Visual Impairment: Limited Hearing Ability: Normal Bone Density Technician Required: No Beliefs That Will Affect Care: None marital status: Current Living Situation: Spouse Current Living Situation Comment: Home with current occupational status: retired How many Children do You have: 4 How many Children do You have Comment: One child is local and involved with care. Others are in [place]. Also has a brother and that can assist with care Feels Safe at Home: Yes Childhood Exposure to Second-Hand Smoke: Yes Diet: regular Diet Comment: Educated to increase protein, vitamin c d and zinc caffeine: Yes during the past year weight has: decreased > 10 lbs Dental Care, Regularly: Yes Physical Activity Frequency: 1-2 Times per Week Physical Activity Frequency Comment: walks Seatbelt Use: always Sunscreen Use: Yes Do you think of yourself as: straight/heterosexual Assistive Devices: Oxygen - Continuous, Raised Toilet Seat and Walker Review of Systems Gastrointestinal: + dysphagia Physical Exam Constitutional: chronically ill appearing Respiratory: normal respiratory effort Cardiovascular: Rate/Rhythm: + irregularly irregular Gastrointestinal (Abdomen): normal bowel sounds, soft, nontender, no hepatosplenomegaly Psychiatric: Orientation: alert and oriented x 3 Results & Data Vital Signs (Past 12 Hours) Vital Signs Temp Pulse Pulse Resp BP Pulse Ox O2 Del Method 09/06/23 09:44 Nasal Cannula 09/06/23 08:01 36.4 C L 75 16 110/71 100 Room Air 09/06/23 07:32 77 09/06/23 04:14 36.6 C 78 20 101/65 100 Nasal Cannula O2 Flow Rate 09/06/23 09:44 09/06/23 08:01 09/06/23 07:32 09/06/23 04:14 2 PG Care Time/CCT Total # of Minutes Spent Total Time Spent with Patient: Total time spent is greater than 50% in coordination of care (as documented) at patient's floor/unit and/or counseling patient: Coding Level of Care Code 62047 INT INP/OBS CARE 3/75MIN Diagnoses Oropharyngeal dysphagia R13.12
--- NOTE | 2023-09-06 12:51 | Cardiology Consultation ---
Date of Consultation September 06, 2023 Assessment & Plan (1) Heart failure with mildly reduced ejection fraction (HFmrEF): (2) Cor pulmonale, chronic: (3) Cardiomyopathy: (4) Permanent atrial fibrillation: (5) Nonocclusive coronary atherosclerosis of [place] coronary artery: (6) H/O mitral valve replacement: (7) Chronic hypoxemic respiratory failure: Plan 83-year-old man with multiple severe/advanced pathologies affecting multiple organ systems (severe COPD/cor pulmonale/cirrhosis) who was admitted with nonspecific complaints and treated for potential pneumonia/heart failure. Uncertain as to his initial volume status, but currently he appears somewhat hypovolemic. His weight is below baseline, neck veins appear below expected meniscus for cor pulmonale patient, BP low normal, and creatinine slightly increased since admission. Would certainly NOT recommend intravenous hydration given his very limited ability to volume unload with cor pulmonale, but would continue to hold diuretics even to the point of allowing some degree of permissive lower extremity edema. Did discuss with the patient at some length the poor prognostic outlook for advanced cor pulmonale and the likelihood that medical interventions would have very limited impact on his overall wellbeing and longevity. He is followed by Hallie Miranda PA-C in heart failure clinic, would ask her to be involved to help closely monitor his volume status, since he has a very narrow or perhaps nonexistent range of ideal volume to allow adequate preload for his cor pulmonale while avoiding edematous complications (such as impaired wound healing). Certainly, palliative discussion should be entertained. History of Present Illness Reason for Consultation: acute on chronic chf, new worsened EF, need PEG Requesting Physician: Dmitri Jennings MD Attending Physician: Dmitri Jennings MD History of Present Illness 83-year-old man status post bioprosthetic mitral valve replacement 2015, nonobstructive CAD at that time, permanent atrial fibrillation (metoprolol/apixaban), mild nonischemic cardiomyopathy (EF 40-55% over the years), severe COPD (on supplemental oxygen) with significant right heart findings consistent with cor pulmonale, severe peripheral arterial disease, and alcoholic cirrhosis, who was admitted 09/04/2023 with generalized weakness and progressive dyspnea. Recent medical issues include bilateral toe ulcerations and a traumatic left hand injury (all followed in wound clinic), a choking episode with possible aspiration 09/01/2023 when taking a dose of doxycycline with continued difficulty swallowing since (he was unable to keep a potassium supplement down earlier today). Initial evaluation included chest x-ray with bibasilar opacities (pneumonia or atelectasis), interstitial pulmonary edema with small bilateral effusions, ECG with atrial fibrillation at 109 bpm with anterior T wave inversions (new compared with April 2023), and mild troponin elevation (30.9 and 39.2). His current echocardiogram shows EF 40 to 45% with mild left ventricular global hypokinesis, moderately dilated right ventricle with moderate to severely reduced systolic function and evidence of RV pressure and volume overload. Bioprosthetic mitral valve appears to have moderate stenosis and there is evidence of severe systolic and diastolic pulmonary hypertension as well as a left pleural effusion. Compared to the April 2023 study, mild decline in left ventricular systolic function and right heart impairment and pulmonary hypertension are more severe. He notes that his baseline weight at home is in the 155 pound range. His weight was 153 pounds on admission and was 145 pounds today. Input/output has been modestly negative each day. He had been receiving furosemide 40 mg IV twice daily, currently held. At the time of my evaluation this morning, patient noted mild breathlessness at rest and generalized fatigue. No chest pain, palpitations, or lightheadedness. Telemetry showed atrial fibrillation with ventricular rate 60-70 bpm. Allergies Allergy/AdvReac Type Severity Reaction Status Date / Time cephalexin [From Keflex] Allergy Hives Verified 08/30/23 08:58 Home Medications Medication Instructions Recorded Confirmed Type Oxygen Home #2 L 10/14/21 09/04/23 Rx metoprolol succinate 25 mg 12.5 mg (1/2 x 25 mg) PO QAM #45 09/26/22 09/04/23 Rx tablet,extended release 24 hr tabs budesonide-formoterol HFA 160 2 puff inhalation BID #3 Inhalers 09/27/22 09/04/23 Rx mcg-4.5 mcg/actuation aerosol inhaler (Symbicort) tiotropium bromide 2.5 2 puff inhalation QAM #3 Inhalers 10/05/22 09/04/23 Rx mcg/actuation mist for inhalation (Spiriva Respimat) albuterol sulfate 90 mcg/actuation 2 puff inhalation QID PRN 02/07/23 09/04/23 Rx aerosol inhaler (Ventolin HFA) shortness of breath or wheezing #18 grams atorvastatin 20 mg tablet 20 mg PO HS #90 tabs 03/08/23 09/04/23 Rx omeprazole 20 mg capsule,delayed 20 mg PO QAM 04/29/23 09/04/23 History release apixaban 5 mg tablet (Eliquis) 5 mg PO BID #180 tabs 07/12/23 09/04/23 Rx furosemide 40 mg tablet 40 mg PO QAM weight gain 07/25/23 09/04/23 History magnesium chloride 64 mg 400 mg PO QAM 08/08/23 09/04/23 History (magnesium chloride) tablet,delayed release (Mag 64) doxycycline hyclate 100 mg tablet 100 mg PO BID 14 days #28 tabs 08/25/23 09/04/23 Rx dutasteride 0.5 mg capsule 0.5 mg PO QAM 09/04/23 09/04/23 History hzaghmva-yf-elfyd 300 mcg-K 60 1 tab PO QAM 09/04/23 09/04/23 History mcg-lycop 600 mcg-lutein 300 mcg tablet (Centrum Silver Men) Patient History Medical History Hematuria Low blood pressure reading Hypoxia Right lower lobe pneumonia 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 Recommend 1 year follow up. Heart failure with mid-range ejection fraction History of tobacco use Diverticulosis SNHL (sensorineural hearing loss) Seasonal allergies Tinnitus GERD (gastroesophageal reflux disease) Atrial fibrillation Hypertension Surgical History H/O mitral valve replacement 2015 Status post Mohs surgery left cheek, left arm (squamous cell) Status post anal fissurectomy History of colonoscopy History of tooth extraction History of tonsillectomy History of cardiac radiofrequency ablation History of cardiac cath 03/2015 > no stents Family History Father Family hx colonic polyps Mother Heart disease Other Hypertension No family history of adverse response to anesthesia Social History Smoking Status: Former smoker Tobacco Type: Cigarettes Age Started Using Tobacco: 17; Age Quit Using Tobacco: 62; packs per day: 2; Cigarettes Per Day: 2 packs; Second Hand Exposure: No; Do You Dip or Chew Tobacco: No; Hx Alcohol Use: No Hx Substance Use: No Preferred Language: Montserratian Communication Ability: Effective Visual Impairment: Limited Hearing Ability: Normal Clay Artist Required: No Beliefs That Will Affect Care: None marital status: Current Living Situation: Spouse Current Living Situation Comment: Home with current occupational status: retired How many Children do You have: 4 How many Children do You have Comment: One child is local and involved with care. Others are in [place]. Also has a brother and that can assist with care Feels Safe at Home: Yes Childhood Exposure to Second-Hand Smoke: Yes Diet: regular Diet Comment: Educated to increase protein, vitamin c d and zinc caffeine: Yes during the past year weight has: decreased > 10 lbs Dental Care, Regularly: Yes Physical Activity Frequency: 1-2 Times per Week Physical Activity Frequency Comment: walks Seatbelt Use: always Sunscreen Use: Yes Do you think of yourself as: straight/heterosexual Assistive Devices: Oxygen - Continuous, Raised Toilet Seat and Walker Physical Exam Physical Exam: Thin elderly white male who appears chronically ill but not acutely distressed. Afebrile. BP 104/63 mmHg. Pulse 64 bpm and regular. Respirations 20 and mildly labored. Skin: Generalized ecchymoses both upper extremities, no generalized lesions. HEENT: unremarkable. Neck: JVP just above the clavicle with prominent "v" waves, no carotid bruits. Lungs: Severely diminished/nearly an audible breath sounds without obvious wheezing or crackles. Mild accessory muscle use without abdominal paradox, intercostal retraction, or nasal flaring. Cardiac: Very faint heart tones, irregular rhythm without obvious murmur. Abdomen: benign. Extremities: no edema, chronic stasis changes, feet bandaged due to ulcerations, lower extremity pulses nonpalpable. Neurologic: normal affect and conversation, nonfocal. Results & Data Laboratory Results Hemoglobin 10.5 with normal white count and platelet count. INR 1.4. Normal electrolytes, BUN 22, creatinine 0.98. Troponins as noted. Magnesium 1.9 (1.6 yesterday). Diagnostic Findings Chest x-ray today with persistent bibasilar opacities, no major change compared with admission. ECG and echo as noted in HPI. PG Care Time/CCT Total # of Minutes Spent Total Time Spent with Patient: Total time spent is greater than 50% in coordination of care (as documented) at patient's floor/unit and/or counseling patient: Coding Level of Care Code 78776 INT INP/OBS CARE 3MIN Diagnoses Heart failure with mildly reduced ejection fraction (HFmrEF) I50.22 Cor pulmonale, chronic I27.81 Cardiomyopathy, unspecified type I42.9 Cardiomyopathy type: unspecified Permanent atrial fibrillation I48.21 Nonocclusive coronary atherosclerosis of [place] coronary artery I25.10 H/O mitral valve replacement Z95.2 Chronic hypoxemic respiratory failure J96.11 (3) Cardiomyopathy Cardiomyopathy type: unspecified Qualified Code(s): I42.9 - Cardiomyopathy, unspecified
--- NOTE | 2023-09-06 14:19 | XRay Report ---
XR chest 1V portable CLINICAL HISTORY: follow up CHF/aspiration PNA TECHNIQUE: Single frontal radiograph of the chest was obtained. Comparison: Comparison is made to chest radiograph 09/04/2023 FINDINGS: No lines and tubes are seen. Cardiomegaly is noted. The aortic arch is calcified. Bilateral lower ed g predominant airspace opacities are seen. Interstitial thickening and prominent pulmonary vasculatur e is seen. Small bilateral pleural effusions are seen. IMPRESSION: 1. Cardiomegaly and moderate pulmonary edema. 2. Airspace opacities in the bilateral lower lungs likely represent atelectasis, pneumonia, and/or a lveolar edema. ACT 112: Negative or not required by law. Electronically signed by: Darion Lee M.D. 09/06/2023 2:18 PM
--- NOTE | 2023-09-06 14:21 | Ultrasound Report ---
US liver CLINICAL HISTORY: cirrhosis TECHNIQUE: Multiple real-time sonographic images of the right upper quadrant were obtained. Comparison: Comparison is made to liver ultrasound 11/21/2022 FINDINGS: The liver is diffusely coarsened in echotexture, with a nodular contour. The liver appears shrunken i n appearance. These findings are suggestive of cirrhosis. No focal mass lesions are seen. No intr ahepatic ductal dilatation is seen. No gallstones or sludge are identified within the gallbladder. T he gallbladder wall is not thickened. There is no pericholecystic fluid present. A sonographic Morrow 's sign was not elicited by the in house counsel. The common duct measures 0.3 cm in diameter at the lev el of the hepatic artery. The visualized portions of the pancreas appear normal. The right kidney shows normal echogenicity, cortical thickness and renal contour. The right kidney sh ows no evidence of hydronephrosis or mass. No ascites or free fluid is seen in Rg's pouch. IMPRESSION: Nodular contour of the liver compatible with cirrhosis. No underlying hepatic mass is seen. ACT 112: Negative or not required by law. Electronically signed by: Darion Lee M.D. 09/06/2023 2:20 PM
[2023-09-06] MEDS: MAGNESIUM SULFATE / D5W 1 GM/100 ML BAG IV ONE (18:08)
[2023-09-06] MEDS: POTASSIUM CHLORIDE CRTAB 20 MEQ TABCR PO STA (18:08)
--- NOTE | 2023-09-06 23:05 | Death Pronouncement Note ---
Date of Service September 06, 2023 Pronouncement Note Admission Date September 04, 2023 Date and Time of Date of : 09/06/23 Time of : 22:55 Preliminary Cause of (1) Acute exacerbation of congestive heart failure: Heart failure type: unspecified Qualified Code(s): I50.9 - Heart failure, unspecified (2) Aspiration pneumonia: Aspiration pneumonia type: unspecified Laterality: unspecified laterality Lung location: unspecified part of lung Qualified Code(s): J69.0 - Pneumonitis due to inhalation of food and vomit (3) Chronic hypoxemic respiratory failure: (4) SOB (shortness of breath): (5) Lactate blood increased: (6) Elevated troponin: (7) Chronic wound: (8) Hypertension: (9) Atrial fibrillation: Atrial fibrillation type: permanent Qualified Code(s): I48.21 - Permanent atrial fibrillation Summary Code purple called at 2029 for bradycardia and unresponsiveness. Patient had recently ambulated to the bathroom with assistance and upon return to bed, become profoundly bradycardic. Upon arrival to room, patient was responsive to verbal cues, but intermittently asystolic with agonal breathing. Patient noted to be DNR/DNI. Patient noted to be hypovolemic on exam, decision made to provide 500 cc bolus of LR to support fluid status. Called patient's , who confirmed his wishes to be DNR/DNI, she was notified to present to bedside given the likelihood of patient's passing. Patient became persistently asystolic and unresponsive to verbal cues, but remained responsive to sternal rub. Over the course of the following 25 minutes, agonal breaths decreased to the point of cessation. Patient confirmed to be asystolic w/o agonal breaths for 2 minutes. Time of was called at 2054. Additional Data Confirmation of : no pulse, no respirations, no heart sounds and pupils fixed and dilated Pronouncement Performed By: Resident Physician Family: contacted (coming to bedside) Additional persons at bedside: other (nursing) Attending/PCP notified?: Yes Attending physician: Dmitri Jennings MD Was code activated?: No (Code Purple only) Autopsy requested?: No
[2023-09-06] MEDS: LACTATED RINGER'S 500 ML IV SCH (23:30)
--- NOTE | 2023-09-07 14:06 | Palliative Care Consultation ---
Date of Consultation September 07, 2023 Assessment & Plan (1) Dyspnea and respiratory abnormalities: (2) Aspiration into airway: (3) Advanced care planning/counseling discussion: ACP discussion face to face with pt and his x 20min patient states prior to aspiration worsening he enjoyed a high QOL and travel w ith . Enjoys time with his family, is IADLs and mobility was not impaired, still driving etc. He notes he can still take some PO for pleasure but understands nutrition is inadequate. he feels a feeding tube will add QOL to his life in that he can continue to have time with his , spend time with family and travel as desired. he does not feel a feeding tube would hinder him in significant ways. We reviewed that there is not a lot of data showing benefits from enteral/parenteral nutrition in terminally ill patients, apart from those with mechanical gastrointestinal tract obstruction for whom we can see improved pt survival, functional status and QoL. Overall benefits of EYAD seems highest in those patients with a stronger baseline PS and given that he has been otherwise well with a stable PS, there may be meaningful benefit to PEG and no harm in trying it, with the caveat that if it causes him distress/adds to suffering he can always stop what is not helping. We discussed potential complications as requested and reviewed the risk of aspiration does not eradicate with PEG but we may be able to limit potential aspiration risks with positioning etc. They wish to proceed with PEG (4) Palliative care by specialist: Plan As abve Thank you for allowing us to participate in the ongoing care of this patient. Please don't hesitate to call or page with any additional concerns. Dr. Kerri Wright DNP Director, Palliative Care History of Present Illness Reason for Consultation: On 09/05/23 @ 13:03 Shirley Mesa Wrote To Kerri Wright goals of care, aspiration/dysphgia, CHF, cirrhosis Attending Physician: Dmitri Jennings MD History of Present Illness 83yo gentleman with worsening aspiration, heart failure, cirrhosis at bedside, requested palliative med assistance for ACP and GOC discussion about EYAD Allergies Allergy/AdvReac Type Severity Reaction Status Date / Time cephalexin [From Keflex] Allergy Hives Verified 08/30/23 08:58 Home Medications Medication Instructions Recorded Confirmed Type Oxygen Home #2 L 10/14/21 09/04/23 Rx metoprolol succinate 25 mg 12.5 mg (1/2 x 25 mg) PO QAM #45 09/26/22 09/04/23 Rx tablet,extended release 24 hr tabs budesonide-formoterol HFA 160 2 puff inhalation BID #3 Inhalers 09/27/22 09/04/23 Rx mcg-4.5 mcg/actuation aerosol inhaler (Symbicort) tiotropium bromide 2.5 2 puff inhalation QAM #3 Inhalers 10/05/22 09/04/23 Rx mcg/actuation mist for inhalation (Spiriva Respimat) albuterol sulfate 90 mcg/actuation 2 puff inhalation QID PRN 02/07/23 09/04/23 Rx aerosol inhaler (Ventolin HFA) shortness of breath or wheezing #18 grams atorvastatin 20 mg tablet 20 mg PO HS #90 tabs 03/08/23 09/04/23 Rx omeprazole 20 mg capsule,delayed 20 mg PO QAM 04/29/23 09/04/23 History release apixaban 5 mg tablet (Eliquis) 5 mg PO BID #180 tabs 07/12/23 09/04/23 Rx furosemide 40 mg tablet 40 mg PO QAM weight gain 07/25/23 09/04/23 History magnesium chloride 64 mg 400 mg PO QAM 08/08/23 09/04/23 History (magnesium chloride) tablet,delayed release (Mag 64) doxycycline hyclate 100 mg tablet 100 mg PO BID 14 days #28 tabs 08/25/23 09/04/23 Rx dutasteride 0.5 mg capsule 0.5 mg PO QAM 09/04/23 09/04/23 History tubrzdns-ku-xnmid 300 mcg-K 60 1 tab PO QAM 09/04/23 09/04/23 History mcg-lycop 600 mcg-lutein 300 mcg tablet (Centrum Silver Men) Patient History Medical History Hematuria Low blood pressure reading Hypoxia Right lower lobe pneumonia 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 Recommend 1 year follow up. Heart failure with mid-range ejection fraction History of tobacco use Diverticulosis SNHL (sensorineural hearing loss) Seasonal allergies Tinnitus GERD (gastroesophageal reflux disease) Atrial fibrillation Hypertension Surgical History H/O mitral valve replacement 2016 Status post Mohs surgery left cheek, left arm (squamous cell) Status post anal fissurectomy History of colonoscopy History of tooth extraction History of tonsillectomy History of cardiac radiofrequency ablation History of cardiac cath 03/2015 > no stents Family History Father Family hx colonic polyps Mother Heart disease Other Hypertension No family history of adverse response to anesthesia Social History Smoking Status: Former smoker Tobacco Type: Cigarettes Age Started Using Tobacco: 17; Age Quit Using Tobacco: 62; packs per day: 2; Cigarettes Per Day: 2 packs; Second Hand Exposure: No; Do You Dip or Chew Tobacco: No; Hx Alcohol Use: No Hx Substance Use: No Preferred Language: Samoan Communication Ability: Effective Visual Impairment: Limited Hearing Ability: Normal Wood Gouger Required: No Beliefs That Will Affect Care: None marital status: Current Living Situation: Spouse Current Living Situation Comment: Home with current occupational status: retired How many Children do You have: 4 How many Children do You have Comment: One child is local and involved with care. Others are in [place]. Also has a brother and that can assist with care Feels Safe at Home: Yes Childhood Exposure to Second-Hand Smoke: Yes Diet: regular Diet Comment: Educated to increase protein, vitamin c d and zinc caffeine: Yes during the past year weight has: decreased > 10 lbs Dental Care, Regularly: Yes Physical Activity Frequency: 1-2 Times per Week Physical Activity Frequency Comment: walks Seatbelt Use: always Sunscreen Use: Yes Do you think of yourself as: straight/heterosexual Assistive Devices: Oxygen - Continuous, Raised Toilet Seat and Walker Review of Systems Review of Systems: All systems reviewed & are unremarkable except as noted in Subjective Physical Exam Physical Exam: elderly male, AAOx3 in bed mild bitemp wasting perrla mouth with sl dry mucosa, dentition intact neck supple, no stridor, no gross JVD chest diminished, few crackles S1S2, irreg irreg abd soft distension, BS+ AGUILAR with mild global weakness Skin pale, warm, scatt ecchymoses. Results & Data Laboratory Results 09/06/23 09/06/23 09/06/23 Range/Units 22:33 13:40 05:31 WBC 6.41 (4.8-10.8) K/ul RBC 3.80 L (4.70-6.10) M/uL Hgb 10.5 L (14.0-18.0) g/dl Hct 33.7 L (42.0-52.0) % MCV 88.7 (80.0-100.0) fL MCH 27.6 (25.0-34.0) pg MCHC 31.2 L (32.0-36.0) g/dL RDW Std Deviation 51.4 H (36.4-46.3) fL RDW Coeff of Kamron 15.9 H (11.5-14.5) % Plt Count 153 (130-400) K/uL MPV 12.7 H (9.4-12.4) fL Immature Gran % (Auto) 0.2 % Neut % (Auto) 73.0 % Lymph % (Auto) 10.6 % Leake % (Auto) 12.6 % Eos % (Auto) 2.8 % Baso % (Auto) 0.8 % Neut # (Auto) 4.68 (1.40-6.50) K/uL Lymph # (Auto) 0.68 L (1.20-3.40) K/uL Leake # (Auto) 0.81 H (0.11-0.59) K/uL Eos # (Auto) 0.18 (0.00-0.50) K/uL Baso # (Auto) 0.05 (0.00-0.20) K/uL Immature Gran # (Auto) 0.01 (0.01-0.20) K/uL PT 15.2 H (9.0-12.0) Seconds INR 1.4 H (0.9-1.1) APTT (21-31) Seconds PTT Ratio VBG pH (7.36-7.41) VBG pCO2 (38-50) mmHg VBG pO2 mmHg VBG HCO3 mmol/L VBG O2 Saturation % VBG Base Excess mEq/L Sodium 141 (136-145) mmol/L Potassium 3.5 (3.5-5.1) mmol/L Chloride 100 (98-107) mmol/L Carbon Dioxide 35 H (21-32) mmol/L Anion Gap 6 (3-11) BUN 22 (6-23) mg/dl Creatinine 0.98 (0.6-1.4) mg/dl Est Cr Clr Drug Dosing 55.5 ml/min Est GFR ( Amer) 83.5 ml/min Est GFR (Non-Af Amer) 72.0 ml/min BUN/Creatinine Ratio 22.4 H (10-20) Glucose 94 (70-99(Fasting)) mg/dl POC Glucose 103 H 93 (70-99) mg/dl Lactate (0.4-2.0) mmol/L Calcium 8.3 L (8.6-10.3) mg/dl Phosphorus 2.9 (2.5-4.9) mg/dl Magnesium 1.9 (1.7-2.4) mg/dl Total Bilirubin 1.2 H (0.2-1.0) mg/dl AST 23 (13-39) U/L ALT 9 (7-52) U/L Alkaline Phosphatase 87 (34-104) U/L Troponin I High Sens (0-20) pg/ml B-Natriuretic Peptide (0-100) pg/ml Total Protein 5.7 L (6.0-8.3) gm/dl Albumin 3.4 (3.4-5.0) gm/dl Globulin 2.3 L (2.5-4.0) gm/dl Albumin/Globulin Ratio 1.5 (0.9-2) Triglycerides 73 (0-150) mg/dl Lipase (11-82) U/L Procalcitonin (0-0.5) ng/ml Nasal Screen MRSA (PCR) (Negative) SARS-CoV-2 (PCR) (Negative) Influenza Type A (PCR) (Neg) Influenza Type B (PCR) (Neg) RSV (RT-PCR) (Neg) 05/09/04/23 09/04/23 Range/Units 06:16 16:56 16:25 WBC 5.44 (4.8-10.8) K/ul RBC 3.47 L (4.70-6.10) M/uL Hgb 9.5 L (14.0-18.0) g/dl Hct 31.4 L (42.0-52.0) % MCV 90.5 (80.0-100.0) fL MCH 27.4 (25.0-34.0) pg MCHC 30.3 L (32.0-36.0) g/dL RDW Std Deviation 51.1 H (36.4-46.3) fL RDW Coeff of Kamron 15.9 H (11.5-14.5) % Plt Count 145 (130-400) K/uL MPV 12.6 H (9.4-12.4) fL Immature Gran % (Auto) 0.4 % Neut % (Auto) 68.2 % Lymph % (Auto) 14.7 % Leake % (Auto) 13.6 % Eos % (Auto) 2.4 % Baso % (Auto) 0.7 % Neut # (Auto) 3.71 (1.40-6.50) K/uL Lymph # (Auto) 0.80 L (1.20-3.40) K/uL Leake # (Auto) 0.74 H (0.11-0.59) K/uL Eos # (Auto) 0.13 (0.00-0.50) K/uL Baso # (Auto) 0.04 (0.00-0.20) K/uL Immature Gran # (Auto) 0.02 (0.01-0.20) K/uL PT 15.8 H (9.0-12.0) Seconds INR 1.5 H (0.9-1.1) APTT (21-31) Seconds PTT Ratio VBG pH (7.36-7.41) VBG pCO2 (38-50) mmHg VBG pO2 mmHg VBG HCO3 mmol/L VBG O2 Saturation % VBG Base Excess mEq/L Sodium 144 (136-145) mmol/L Potassium 3.9 (3.5-5.1) mmol/L Chloride 101 (98-107) mmol/L Carbon Dioxide 34 H (21-32) mmol/L Anion Gap 9 (3-11) BUN 25 H (6-23) mg/dl Creatinine 0.83 (0.6-1.4) mg/dl Est Cr Clr Drug Dosing 69.0 ml/min Est GFR ( Amer) 95.6 ml/min Est GFR (Non-Af Amer) 82.5 ml/min BUN/Creatinine Ratio 30.1 H (10-20) Glucose 59 L (70-99(Fasting)) mg/dl POC Glucose (70-99) mg/dl Lactate 1.2 (0.4-2.0) mmol/L Calcium 8.5 L (8.6-10.3) mg/dl Phosphorus (2.5-4.9) mg/dl Magnesium 1.6 L (1.7-2.4) mg/dl Total Bilirubin 1.1 H (0.2-1.0) mg/dl AST 20 (13-39) U/L ALT 8 (7-52) U/L Alkaline Phosphatase 85 (34-104) U/L Troponin I High Sens 39.2 H (0-20) pg/ml B-Natriuretic Peptide (0-100) pg/ml Total Protein 5.5 L (6.0-8.3) gm/dl Albumin 3.3 L (3.4-5.0) gm/dl Globulin 2.2 L (2.5-4.0) gm/dl Albumin/Globulin Ratio 1.5 (0.9-2) Triglycerides (0-150) mg/dl Lipase (11-82) U/L Procalcitonin (0-0.5) ng/ml Nasal Screen MRSA (PCR) Negative (Negative) SARS-CoV-2 (PCR) (Negative) Influenza Type A (PCR) (Neg) Influenza Type B (PCR) (Neg) RSV (RT-PCR) (Neg) 09/04/23 09/04/23 Range/Units 14:54 14:51 WBC 8.67 (4.8-10.8) K/ul RBC 3.93 L (4.70-6.10) M/uL Hgb 11.0 L (14.0-18.0) g/dl Hct 36.0 L (42.0-52.0) % MCV 91.6 (80.0-100.0) fL MCH 28.0 (25.0-34.0) pg MCHC 30.6 L (32.0-36.0) g/dL RDW Std Deviation 52.2 H (36.4-46.3) fL RDW Coeff of Kamron 15.9 H (11.5-14.5) % Plt Count 168 (130-400) K/uL MPV 12.4 (9.4-12.4) fL Immature Gran % (Auto) 0.2 % Neut % (Auto) 73.9 % Lymph % (Auto) 13.4 % Leake % (Auto) 10.6 % Eos % (Auto) 1.2 % Baso % (Auto) 0.7 % Neut # (Auto) 6.41 (1.40-6.50) K/uL Lymph # (Auto) 1.16 L (1.20-3.40) K/uL Leake # (Auto) 0.92 H (0.11-0.59) K/uL Eos # (Auto) 0.10 (0.00-0.50) K/uL Baso # (Auto) 0.06 (0.00-0.20) K/uL Immature Gran # (Auto) 0.02 (0.01-0.20) K/uL PT 15.4 H (9.0-12.0) Seconds INR 1.5 H (0.9-1.1) APTT 34 H (21-31) Seconds PTT Ratio 1.3 VBG pH 7.36 (7.36-7.41) VBG pCO2 63 H (38-50) mmHg VBG pO2 < 20 mmHg VBG HCO3 36 mmol/L VBG O2 Saturation < 60.0 % VBG Base Excess 7.9 mEq/L Sodium 143 (136-145) mmol/L Potassium 4.5 (3.5-5.1) mmol/L Chloride 101 (98-107) mmol/L Carbon Dioxide 32 (21-32) mmol/L Anion Gap 10 (3-11) BUN 28 H (6-23) mg/dl Creatinine 0.90 (0.6-1.4) mg/dl Est Cr Clr Drug Dosing 63.6 ml/min Est GFR ( Amer) 92.5 ml/min Est GFR (Non-Af Amer) 79.8 ml/min BUN/Creatinine Ratio 31.1 H (10-20) Glucose 81 (70-99(Fasting)) mg/dl POC Glucose (70-99) mg/dl Lactate 2.9 H* (0.4-2.0) mmol/L Calcium 9.4 (8.6-10.3) mg/dl Phosphorus (2.5-4.9) mg/dl Magnesium 1.8 (1.7-2.4) mg/dl Total Bilirubin (0.2-1.0) mg/dl AST (13-39) U/L ALT (7-52) U/L Alkaline Phosphatase (34-104) U/L Troponin I High Sens 38.9 H (0-20) pg/ml B-Natriuretic Peptide 1627 H (0-100) pg/ml Total Protein (6.0-8.3) gm/dl Albumin (3.4-5.0) gm/dl Globulin (2.5-4.0) gm/dl Albumin/Globulin Ratio (0.9-2) Triglycerides (0-150) mg/dl Lipase 9 L (11-82) U/L Procalcitonin 0.05 (0-0.5) ng/ml Nasal Screen MRSA (PCR) (Negative) SARS-CoV-2 (PCR) NEGATIVE (Negative) Influenza Type A (PCR) Negative (Neg) Influenza Type B (PCR) Negative (Neg) RSV (RT-PCR) Negative (Neg) Diagnostic Findings Chest X-Ray 09/04/23 14:04 XR chest 1V portable CLINICAL HISTORY: Chest pain, nonspecific COMPARISON STUDY: Chest CT April 30, 2023. Chest radiograph October 08, 2023. FINDINGS: Skin folds project over the left chest. There is no pneumothorax. Small bilateral pleural effusions are present with bibasilar opacities, greater on the left. Interstitial thickening is noted. Cardiomegaly is unchanged. Mitral valve prosthesis is in place. Mediastinal contours are stable. IMPRESSION: 1. Cardiomegaly with interstitial pulmonary edema and small bilateral pleural effusions. 2. Bibasilar opacities, greater on the left. The findings could reflect pneumonia or atelectasis. Radiographic follow-up to ensure resolution is recommended. ACT 112: Negative or not required by law. Electronically signed by: Osbaldo Milner M.D. 09/04/2023 2:37 PM Videofluoroscopic Swallow 09/05/23 11:00 MODIFIED BARIUM SWALLOW CLINICAL HISTORY: r/o aspiration COMPARISON STUDY: Modified barium swallow May 26, 2023. FLUOROSCOPY TIME: 2.24 minutes. Ka, r: 6.03 mGy. TECHNIQUE: A modified barium swallow was performed in conjunction with Speech Pathology. The patient ingested varying consistencies of barium containing ma terial. Video fluoroscopy was performed. FINDINGS: Penetration was noted with thin liquids via teaspoon. Several episodes of a small amount of silent tracheal aspiration were noted with sequential s wallows of thin liquids via straw. Premature spillage was noted. Trace aspiration was noted with nectar thick liquids via cup. Swallow was nonfunctional with pudding consistencies. Moderate residuals were noted with delayed initiation of the swallowing mechanism. Prolonged mastication with the eventual aspiration of residual was noted with cookie and pudding consistencies. IMPRESSION: 1. A small amount of tracheal aspiration with multiple consistencies, as described above. Delayed initiation of the swallowing mechanism with significant residuals with pudding and cookie and pudding consistencies with the eventual aspiration. 2. Full recommendations by Speech pathology to follow. ACT 112: Negative or not required by law. Electronically signed by: Osbaldo Milner M.D. 09/05/2023 5:09 PM Chest X-Ray 09/06/23 07:00 XR chest 1V portable CLINICAL HISTORY: follow up CHF/aspiration PNA TECHNIQUE: Single frontal radiograph of the chest was obtained. Comparison: Comparison is made to chest radiograph 09/04/2023 FINDINGS: No lines and tubes are seen. Cardiomegaly is noted. The aortic arch is calcified. Bilateral lower lung predominant airspace opacities are seen. Interstitial thickening and prominent pulmonary vasculature is seen. Small bilateral pleural effusions are seen. IMPRESSION: 1. Cardiomegaly and moderate pulmonary edema. 2. Airspace opacities in the bilateral lower lungs likely represent atelectasis, pneumonia, and/or alveolar edema. ACT 112: Negative or not required by law. Electronically signed by: Darion Lee M.D. 09/06/2023 2:18 PM Liver Ultrasound 09/06/23 09:32 US liver CLINICAL HISTORY: cirrhosis TECHNIQUE: Multiple real-time sonographic images of the right upper quadrant were obtained. Comparison: Comparison is made to liver ultrasound 11/21/2022 FINDINGS: The liver is diffusely coarsened in echotexture, with a nodular contour. The liver appears shrunken in appearance. These findings are suggestive of cirrhosis. No focal mass lesions are seen. No intrahepatic ductal dilatation is seen. No gallstones or sludge are identified within the gallbladder. The gallbladder wall is not thickened. There is no pericholecystic fluid present. A sonographic Morrow's sign was not elicited by the journey lineman. The common duct measures 0.3 cm in diameter at the level of the hepatic artery. The visualized portions of the pancreas appear normal. The right kidney shows normal echogenicity, cortical thickness and renal contour. The right kidney shows no evidence of hydronephrosis or mass. No ascites or free fluid is seen in Rg's pouch. IMPRESSION: Nodular contour of the liver compatible with cirrhosis. No underlying hepatic mass is seen. ACT 112: Negative or not required by law. Electronically signed by: Darion Lee M.D. 09/06/2023 2:20 PM PG Care Time/CCT Total # of Minutes Spent Total Time Spent with Patient: Total time spent is greater than 50% in coordination of care (as documented) at patient's floor/unit and/or counseling patient: I spent 65 minutes overall addressing this case: 10 min in medical data review/discussion with referring provider(s) and/or preparation for the visit 15 min in direct interaction with the patient/exam 20 min in Advance Care Planning/Goals of Care discussions as detailed above in note (must be >16min) 10 min in subsequent review and synthesis of assessment and plan 10 min communicating with other providers regarding the patient's case: Advanced Care Planning 33443 Advanced Care Planning 30 [place] [address] IN/OBS CONSULT LVL 4,60M Patient Type New History Comprehensive Exam Comprehensive Medical Decision Making High Complexity Diagnoses Dyspnea and respiratory abnormalities R06.00; R06.89 Aspiration into airway T17.908A Advanced care planning/counseling discussion Z71.89 Palliative care by specialist Z51.5 Additional Codes Advanced Care Planning - 48192 Advanced Care Planning 30 Min: 33753 Advanced Care Planning 30 Min ([id number])
--- NOTE | 2023-09-07 15:27 | Discharge Summary ---
Date of Service September 07, 2023 Admission HPI Per Admitting Provider Gil is an 83 year old male with a PMH significant for COPD on 2L NC HS/prn, alcoholic cirrhosis, aifb on Elqiuis, PAD, and BPH who presented to the [facility] ED on 09/04/23 with a chief complaints of SOB and generalized weakness after an aspiration event on 09/01/23. He remained hemodynamically stable stable on his 2L NC in the ED. Labs were significant for a VBG pH WNL with pCO2 of 63 and pO2 < 20, initial lactate of 2.9, initial high sen trop of 38, BNP of 1627 (up from 1540 since 07/28/23), procal WNL, and influenza/RSV/Covid19 negative. Chest xray was read as "1. Cardiomegaly with interstitial pulmonary edema and small bilateral pleural effusions. 2. Bibasilar opacities, greater on the left. The findings could reflect pneumonia or atelectasis. Radiographic follow-up to ensure resolution is recommended.". Prior to admission the patient was given a dose of Zosyn. He was not given IV fluids in the ED at the patient had been hemodynamically stable with evidence of congestive failure on CXR today. At the time of the exam the patient was sitting in bed in no acute distress with his bedside, history was obtained from both. The patient had been taking a 14 day course of Doxycycline for the left great toe infection. He is followed by the wound care clinic for his chronic wounds, this is who prescribed the Doxycycline. On the evening of 08/31 the patient had an episode of chocking while taking his evening dose of Doxycycline. Since then he has had little to no appetite, intermittent productive cough with yellow/brown sputum, and generalized weakness. He has been taking his medications as prescribed, expect the doxycycline as he was concerned he would have further episodes of choking/aspiration, his last dose of Doxycycline was the evening of 08/31. He denies recent fever, chills, chest pain, SOB at rest, hemoptysis, nausea/vomiting, dysuria hematuria, melena, diarrhea, worsening LE swelling, and recent trauma. He has noted some epigastric discomfort during coughing episodes but denies any discomfort at rest. The patient and his explain that the patient's membrane bandages on the chronic wounds of the BL lower extremities and left hand are not to be removed until 09/05 at his next clinic appointment. They have been changing the outer bandages daily as recommended. He is a DNR/DNI and his is his POA if he cannot make decisions himself. Please refer to Dr. Palencia's attestation for any changes to the treatment plan Admission Exam Per Admitting Provider Physical Exam: General: In no acute distress, stated age, chronically ill appearing but non- toxic HEENT: Normocephalic, atraumatic, no scleral icterus, pupils around round, symmetrical, and reactive to light, moist mucus membranes, mild JVD, trachea midline, no thyromegaly Chest/Pulm: No respiratory distress, symmetrical chest expansion, decreased breath sounds in the BL lower lung ibarra with crackles noted in the BL mid and upper lung ibarra Cardiac: irregular rate and rhythm, no murmurs noted Abdomen: Negative for ascites and bruising, normoactive bowel sounds, soft, non- tender to palpation throughout Musculoskeletal: Symmetrical and without signs of acute trauma, upper and lower extremities with full ROM, no atrophy, spasticity, or flaccidity Extremities: Radial, dorsalis pedis, and posterior tibial pulses are intact and symmetrical, 1+ pitting edema noted under the BL LE wraps Skin: Patient with chronic wounds on the BL right and left great toes, wounds were examined down to the membrane bandages, the patient is without signs of infection/tracking proximally, no sings of cellulitis r new infections on the BL feet and legs, >Patient with chronic wound on the dorsum of the left hand without signs of erythema, tracking, or drainage Neuro: Alert and oriented to person, place, month, year, and president, no focal defects, no tremors noted Psych: No acute distress, calm and cooperative during the exam Principal Diagnosis Aspiration Pneumonia, Acute on Chronic Heart Failure Discharge Exam Pronounced by overnight resident: "Confirmation of : no pulse, no respirations, no heart sounds and pupils fixed and dilated Pronouncement Performed By: Resident Physician Family: contacted (coming to bedside) Additional persons at bedside: other (nursing) Attending/PCP notified?: Yes Attending physician: Dmitri Jennings MD" Discharge Data Allergies Allergy/AdvReac Type Severity Reaction Status Date / Time cephalexin [From Keflex] Allergy Hives Verified 08/30/23 08:58 Consultations 09/04/23 15:59 ED Decision to Admit Stat 09/05/23 12:14 Consult Gastroenterology Routine 09/05/23 12:58 [facility] Referral Routine 09/05/23 13:03 Consult Palliative Care Routine 09/06/23 07:19 Consult Cardiology Routine Ordered Studies Chest X-Ray 09/04/23 14:04 XR chest 1V portable CLINICAL HISTORY: Chest pain, nonspecific COMPARISON STUDY: Chest CT April 30, 2023. Chest radiograph October 08, 2023. FINDINGS: Skin folds project over the left chest. There is no pneumothorax. Small bilateral pleural effusions are present with bibasilar opacities, greater on the left. Interstitial thickening is noted. Cardiomegaly is unchanged. Mitral valve prosthesis is in place. Mediastinal contours are stable. IMPRESSION: 1. Cardiomegaly with interstitial pulmonary edema and small bilateral pleural effusions. 2. Bibasilar opacities, greater on the left. The findings could reflect pneumonia or atelectasis. Radiographic follow-up to ensure resolution is recommended. ACT 112: Negative or not required by law. Electronically signed by: Osbaldo Milner M.D. 09/04/2023 2:37 PM Videofluoroscopic Swallow 09/05/23 11:00 MODIFIED BARIUM SWALLOW CLINICAL HISTORY: r/o aspiration COMPARISON STUDY: Modified barium swallow May 26, 2023. FLUOROSCOPY TIME: 2.24 minutes. Ka, r: 6.03 mGy. TECHNIQUE: A modified barium swallow was performed in conjunction with Speech Pathology. The patient ingested varying consistencies of barium containing material. Video fluoroscopy was performed. FINDINGS: Penetration was noted with thin liquids via teaspoon. Several episodes of a small amount of silent tracheal aspiration were noted with sequential swallows of thin liquids via straw. Premature spillage was noted. Trace aspiration was noted with nectar thick liquids via cup. Swallow was nonfunctional with pudding consistencies. Moderate residuals were noted with delayed initiation of the swallowing mechanism. Prolonged mastication with the eventual aspiration of residual was noted with cookie and pudding consistencies. IMPRESSION: 1. A small amount of tracheal aspiration with multiple consistencies, as described above. Delayed initiation of the swallowing mechanism with significant residuals with pudding and cookie and pudding consistencies with the eventual aspiration. 2. Full recommendations by Speech pathology to follow. ACT 112: Negative or not required by law. Electronically signed by: Osbaldo Milner M.D. 09/05/2023 5:09 PM Chest X-Ray 09/06/23 07:00 XR chest 1V portable CLINICAL HISTORY: follow up CHF/aspiration PNA TECHNIQUE: Single frontal radiograph of the chest was obtained. Comparison: Comparison is made to chest radiograph 09/04/2023 FINDINGS: No lines and tubes are seen. Cardiomegaly is noted. The aortic arch is calcified. Bilateral lower lung predominant airspace opacities are seen. Interstitial thickening and prominent pulmonary vasculature is seen. Small bilateral pleural effusions are seen. IMPRESSION: 1. Cardiomegaly and moderate pulmonary edema. 2. Airspace opacities in the bilateral lower lungs likely represent atelectasis, pneumonia, and/or alveolar edema. ACT 112: Negative or not required by law. Electronically signed by: Darion Lee M.D. 09/06/2023 2:18 PM Liver Ultrasound 09/06/23 09:32 US liver CLINICAL HISTORY: cirrhosis TECHNIQUE: Multiple real-time sonographic images of the right upper quadrant were obtained. Comparison: Comparison is made to liver ultrasound 11/21/2022 FINDINGS: The liver is diffusely coarsened in echotexture, with a nodular contour. The liver appears shrunken in appearance. These findings are suggestive of cirrhosis. No focal mass lesions are seen. No intrahepatic ductal dilatation is seen. No gallstones or sludge are identified within the gallbladder. The gallbladder wall is not thickened. There is no pericholecystic fluid present. A sonographic Morrow's sign was not elicited by the circle beveler. The common duct measures 0.3 cm in diameter at the level of the hepatic artery. The visualized portions of the pancreas appear normal. The right kidney shows normal echogenicity, cortical thickness and renal contour. The right kidney shows no evidence of hydronephrosis or mass. No ascites or free fluid is seen in Rg's pouch. IMPRESSION: Nodular contour of the liver compatible with cirrhosis. No underlying hepatic mass is seen. ACT 112: Negative or not required by law. Electronically signed by: Darion Lee M.D. 09/06/2023 2:20 PM ECHOCARDIOGRAM Compared with 05/01/2023 study, mild decline in LV systolic function (EF 40-45%), right heart impairment and pulmonary hypertension are more severe. Hospital Course (1) Aspiration pneumonia: 83yo male presented with worsened shortness of breath and dysphagia following Doxycyline use for infection to his toe. Placed on Zosyn on admission. Speech consulted given issues with PO intake and significant findings on video swallow and was attempting to arrange for TPN/PICC line consent obtained and volume status improved following 40mg IV lasix and no further provided and cardiology consulted and agreed to hold off further diuretics and reported improvement in breathing and stable on 1-2L NC (baseline 2L) and palliative consulted for goals. He reported he felt this was the end earlier this year but was having improvement and wanted to consider PEG tube and temporarily were working to get him over his aspiration pneumonia/acute HF exacerbation and arrange PEG tube placement outpt. Sputum cx pseudomonas and covered by Zosyn which was continued given issues with PO. Patient had been seen at bedside 09/05 by myself and palliative and actually looked better than day prior/in better spirits and discussion with at bedside. He did NOT want any heroic measures like CPR/intubation but was agreeable to the IV abx and nutrition through IV and was in process of being arranged but apparently got up to use the bathroom evening 09/05 and rang the ashby and reported that he felt dyspneic on exertion and when he got back into bed he became unresponsive and code alpesh was called. Was unable to obtain BP and intermittently responsive to verbal cues vs unresponsive with agonal breathing and asystole on monitor. Provided 500cc LR bolus and family called/updated on condition and patient DNR and no further aggressive measures taken and patient ceased to breath at 22:55. Suspect patient had either acute FL/ventricular event vs acute neurological event, however cannot r/o PE however had been continued on eliquis BID while inpatient and denied pleuritic CP and was stable on baseline O2 prior to event. (2) SOB (shortness of breath): multifactorial, suspect combination of acute on chronic CHF w/ worsened EF along with aspiration pneumonia/pseudomonas pneumonia/dysphagia. had been continued on IV Zosyn while inpatient and WBC wnl/afebrile Was given 40mg IV lasix x 1 on 09/04 and remained stable volume/weights 1lb less than "dry weight" and further diuretics held. See above Patient in evening 09/05 went to bathroom and was found to be bradycardic/unresponsive. Hypovolemic on exam and given 500cc LR bolus for support. Remained persistently asystolic and unresponsive to verbal cues but remained responsive to sternal rub however over 25 minutes agonal breaths decreased to point of cessation and confirmed to be asystolic w/o breaths for 2 minutes. Confirmed DNR/DNI and did not undergo heroic measures as discussed w/ patient at length previously, and mentioned himself he thought the time was coming and told his this past month as well. Time of called at 22:55 (3) Acute FL: cannot r/o given acute event/asystole following using bathroom as above (4) Acute exacerbation of congestive heart failure: See SOB, given 40mg IV lasix AM 09/04 w/ good response and actually appears euvolemic/slightly hypovolemic. ECHO w/ lowered EF as above and cardiology/CHF clinic consulted for ongoing assistance (seen by Dr Rodrigez today per patient) (5) Lactate blood increased: 2nd to infection as above (6) Elevated troponin: Trop 38.9--> 39.2 essentially unchanged on repeat. DENIED CP on exam, improvement of SOB aw/ above Suspect nd to demand ischemia from infection/CHF exacerbation as above. No wma o n ECHO obtained while inpatient but did note had worsened EF to 40s off his entresto/spironolactone earlier this year Had remained in afib/rates controlled. Had 8 beat run Vtach days prior 09/03/asymptomatic. Mag 1.6/replacement ordered and improved days prior. Was 1.6 AM 09/05 and additional 2gm IV ordered. K stable. Had episode 12 beats of SVT without reported symptoms and additonal 1gm IV mag and Kcl ordered but otherwise then remained in stable afib See above, could have had ventricular arrhythmia/cardiac event (7) Chronic wound: Follows with the wound care clinic for wounds on the BL great toes and dorsum of the left hand Wounds appear stable today, no signs of progressive since he stopped doxycycline on 08/31 Will continue Zosyn for now to cover aspiration pneumonia and his chronic wounds. MRSA swab negative Wound care nurse consult placed while inpatient (8) Chronic hypoxemic respiratory failure: on 2L baseline, increased yellow sputum, likely from aspiration pneumonia/pseudomonas pneumonia on sputum cx as above continued home treatments, lasix 40mg IV x 1 on 09/04 as above and had been stable on 1-2L NC and reported improvement in breathing on exam 09/05 (9) Hypertension: (10) Atrial fibrillation: as above, had been continued on eliquis/metoprolol. cards consulted while inpatient as above as well Plan inpatient Total Time Total Time Spent Total Time Spent (In Minutes): 40 Discharge Plan Discharge Items Patient Disposition: Other Date/Time: 09/06/23 22:55 Supervising Physician Co-Signing Physician Notes The patient was not seen by me. The chart was reviewed. Case discussed with CALVIN Borjas. The patient unexpectedly. Coding Level of Care Code 70970 INP/OBS DISCH >30 MIN Diagnoses Aspiration pneumonia J69.0 Aspiration pneumonia type: unspecified Laterality: unspecified laterality Lung location: unspecified part of lung SOB (shortness of breath) R06.02 Acute FL I21.9 Acute exacerbation of congestive heart failure I50.9 Heart failure type: unspecified Lactate blood increased R79.89 Elevated troponin R77.8 Chronic wound T14.8XXA Chronic hypoxemic respiratory failure J96.11 Hypertension I10 Permanent atrial fibrillation I48.21 Atrial fibrillation type: permanent
== END 2023-09-06 22:55 | disposition expired | DRG 177 ==
LOC: ED 14:00 → SUATTDRO 16:15 → 2N 16:15